=== PATIENT | male | born 1995 | race Two or more races ===

== ENCOUNTER 2021-01-27 22:29 | Emergency (ER) | payer MEDICAID ==
[~2021-01-27] VITALS: Ht 170.2 cm; Wt 87.5 kg
[2021-01-27 23:23] LABS: Basophils # (auto) 0.1 10 ^3/uL (0-0.2); Eosinophils # (auto) 0.1 10 ^3/uL (0-0.8); Eosinophils % (auto) 3.4 % (0.0-7.0); Hemoglobin 14.8 g/dL (13.5-17.5); Lymphocytes # (auto) 1.1 10 ^3/uL (0.4-5.4); Lymphocytes % (auto) 35.7 % (10.0-50.0); Mean Corpuscular Hemoglobin 30.8 pg (28.0-32.0); Mean Corpuscular Hgb Conc. 34.5 g/dL (32.0-36.0); Mean Corpuscular Volume 89.2 fL (80.0-100.0); Monocytes # (auto) 0.3 10 ^3/uL (0-1.3); Monocytes % (auto) 8.8 % (0.0-12.0); Neutrophils # (auto) 1.5 10 ^3/uL (1.6-8.6); Neutrophils % (auto) 49.1 % (37.0-80.0); Nucleated Red Blood Cells % 0.1 %; Platelet Count (auto) 142 10^3/uL (140-450); Red Blood Cells 4.82 10^6/uL (4.5-5.90); Red Cell Distribution Width 17.1 % (11.8-14.3)
[2021-01-27 23:44] LABS: INR 1.13 (0.9-1.15); Partial Thromboplastin Time 27.8 sec (23.0-31.2)
[2021-01-27 23:46] LABS: Salicylate < 1.7 mg/dL (2.8-20.0)
[2021-01-27 23:48] LABS: Albumin 4.4 g/dL (3.4-5.0); Calcium 8.2 mg/dL (8.5-10.1); Chloride 111 mmol/L (98-107); Glucose 118 mg/dL (74-106); Magnesium 2.1 mg/dL (1.6-2.6); Potassium 3.7 mmol/L (3.5-5.1); Sodium 144 mmol/L (136-145)
[2021-01-27 23:53] LABS: Alanine Aminotransferase 76 U/L (16-61); Alkaline Phosphatase 88 U/L (45-117); Aspartate Aminotransferase 139 U/L (15-37); Bilirubin, Total 0.8 mg/dL (0.2-1.0); GFR African American 144 mL/min; GFR Non-African American 119 mL/min; Total Protein 8.7 g/dL (6.4-8.2)
[2021-01-28 00:07] LABS: Acetaminophen < 2.0 ug/mL (10-30)
[2021-01-28 00:12] LABS: Anion Gap 10 (5-15); BUN/Creatinine Ratio 8.5; Blood Urea Nitrogen 7 mg/dL (7-18); Carbon Dioxide 23 mmol/L (21-32)
[2021-01-28 00:47] LABS: Amphetamine Screen, Urine NEGATIVE (NEGATIVE); Barbiturate Scree,Urine NEGATIVE (NEGATIVE); Benzodiazephine Screen, Urine POSITIVE (NEGATIVE); Cannabinoid Screen, Urine NEGATIVE (NEGATIVE); Cocaine Screen, Urine NEGATIVE (NEGATIVE); Opiate Scree,Urine NEGATIVE (NEGATIVE); Phencyclidine Screen, Urine NEGATIVE (NEGATIVE)
[2021-01-28] MEDS ORDERED: MULTIPLE VITAMIN TAB PO ONE (01:00)
[2021-01-28] MEDS ORDERED: FOLIC ACID 1 MG TAB PO ONE (01:00)
[2021-01-28] MEDS ORDERED: THIAMINE HCL 100 MG TAB PO ONE (01:00)
[2021-01-28] MEDS ORDERED: DONNATAL 5ml ORAL Elix (BELLADONNA ALK-PHENOBARB) PO ONE (07:45)
[2021-01-28] MEDS ORDERED: FAMOTIDINE 20 MG TAB PO ONE (07:45)
[2021-01-28] MEDS ORDERED: ALUM & MAG HYDROX-SIMETH LIQ(MAALOX) 30 ML PO ONE (07:45)
[2021-01-28] MEDS ORDERED: SODIUM CHLORIDE 0.9% 1,000 ML IVB ONE (07:45)
[2021-01-28] MEDS ORDERED: FOLIC ACID 1 MG, MULTIPLE VITAMIN 10 ML, MAGNESIUM SULF SDV 50% 8 MEQ, THIAMINE INJ 100... INJ SCH ×5 (12:00)
[2021-01-28 13:00] VITALS: BP 103/64
== END 2021-01-28 13:35 | disposition home or self-care (01) ==
LOC: ER 22:29 → EDBD 22:29 → ER 01-28 13:35
DX: R07.89 Other chest pain (principal); F10.129 Alcohol abuse with intoxication, unspecified; Y90.8 Blood alcohol level of 240 mg/100 ml or more
CPT/HCPCS: 36415; 71045; 80053; 80307; 80320; 80329; 83735; 83880; 84443; 84484; 85025; 85610; 85730; 93005; 96361; 96365; 96366; 99285; J3411; J3475; J7030

== ENCOUNTER 2021-01-30 01:46 | Emergency (ER) | payer MEDICAID ==
[~2021-01-30] VITALS: Ht 172.7 cm; Wt 83.9 kg
[2021-01-30 03:41] LABS: Basophils # (auto) 0 10 ^3/uL (0-0.2); Eosinophils # (auto) 0.2 10 ^3/uL (0-0.8); Hematocrit 41.6 % (41.0-53.0); Hemoglobin 13.9 g/dL (13.5-17.5); Lymphocytes # (auto) 0.9 10 ^3/uL (0.4-5.4); Lymphocytes % (auto) 38.6 % (10.0-50.0); Mean Corpuscular Hemoglobin 29.8 pg (28.0-32.0); Mean Corpuscular Hgb Conc. 33.5 g/dL (32.0-36.0); Mean Corpuscular Volume 88.8 fL (80.0-100.0); Monocytes # (auto) 0.1 10 ^3/uL (0-1.3); Monocytes % (auto) 6.4 % (0.0-12.0); Nucleated Red Blood Cells % 0.1 %; Platelet Count (auto) 108 10^3/uL (140-450); Red Blood Cells 4.68 10^6/uL (4.5-5.90); Red Cell Distribution Width 16.6 % (11.8-14.3); White Blood Cell 2.3 10^3/uL (4.4-10.8)
[2021-01-30] MEDS ORDERED: NIFEdipine 10 MG CAP PO ONE (03:45)
[2021-01-30 03:55] LABS: Albumin 3.9 g/dL (3.4-5.0); Anion Gap 8 (5-15); Blood Urea Nitrogen 5 mg/dL (7-18); Calcium 7.9 mg/dL (8.5-10.1); Carbon Dioxide 25 mmol/L (21-32); Chloride 110 mmol/L (98-107); Glucose 93 mg/dL (74-106); Magnesium 2.4 mg/dL (1.6-2.6); Potassium 3.6 mmol/L (3.5-5.1); Sodium 143 mmol/L (136-145)
[2021-01-30 03:56] LABS: INR 1.13 (0.9-1.15); Partial Thromboplastin Time 28.8 sec (23.0-31.2)
[2021-01-30 04:02] LABS: Alanine Aminotransferase 60 U/L (16-61); Alkaline Phosphatase 75 U/L (45-117); Aspartate Aminotransferase 111 U/L (15-37); BUN/Creatinine Ratio 6.9; Bilirubin, Total 0.7 mg/dL (0.2-1.0); GFR African American 167 mL/min; GFR Non-African American 138 mL/min; Total Protein 7.8 g/dL (6.4-8.2)
[2021-01-30] MEDS ORDERED: LORazepam 2MG/ML-1ML VIAL IV ONE (06:45)
[2021-01-30] MEDS ORDERED: SODIUM CHLORIDE 0.9% 1,000 ML IV ONE (06:45)
[2021-01-30 07:02] VITALS: BP 125/84
== END 2021-01-30 08:20 | disposition left against medical advice (07) ==
LOC: ER 01:46
DX: F10.129 Alcohol abuse with intoxication, unspecified (principal); I10 Essential (primary) hypertension; R07.89 Other chest pain; Y90.9 Presence of alcohol in blood, level not specified
CPT/HCPCS: 36415; 71045; 80053; 83735; 83880; 84484; 85025; 85610; 85730; 93005; 96361; 96374; 99285; J2060; 96360

== ENCOUNTER → 2023-11-14 | Outpatient (CLI) | payer MEDICAID ==
[2023-11-14 13:46] LABS: Hemoglobin 8.5 g/dL (13.5-17.5); Mean Corpuscular Hemoglobin 24.1 pg (28.0-32.0); Red Blood Cells 3.52 10^6/uL (4.5-5.90); White Blood Cell 2.9 10^3/uL (4.4-10.8)
[2023-11-14 13:48] LABS: Hematocrit 27.7 % (41.0-53.0); Mean Corpuscular Hgb Conc. 30.6 g/dL (32.0-36.0); Mean Corpuscular Volume 78.6 fL (80.0-100.0)
[2023-11-14 13:54] LABS: Red Cell Distribution Width 28.1 % (11.8-14.3)
[2023-11-14 13:56] LABS: Band Neutrophils % (manual) 0; Basophils % (manual) 0 (0.0-2.0); Blast Cells 0; Metamyelocytes % 0; Myelocytes % 0; Promyelocytes % 0; Reactive Lymphocytes 0
[2023-11-14 14:15] LABS: Eosinophils % (manual) 10 (0-7); Lymphocytes % (manual) 16 (10.0-50.0); Monocytes % (manual) 8 (0-12); Platelet Estimate Decreased
[2023-11-14 14:17] LABS: Alanine Aminotransferase 45 U/L (7-40); Alkaline Phosphatase 130 U/L (46-116); Anion Gap 4 (5-15); Aspartate Aminotransferase 70 U/L (13-40); BUN/Creatinine Ratio 15.8 (10.0-20.0); Blood Urea Nitrogen 9 mg/dL (9-23); Calcium 8.2 mg/dL (8.5-10.1); Carbon Dioxide 27 mmol/L (20-30); Chloride 107 mmol/L (98-107); Glucose 98 mg/dL (74-106); Potassium 3.6 mmol/L (3.5-5.1); Sodium 138 mmol/L (136-145)
[2023-11-14 14:18] LABS: Albumin 3.2 g/dL (3.2-4.8)
[2023-11-14 14:19] LABS: Bilirubin, Total 3.1 mg/dL (0.2-1.0)
[2023-11-14 14:20] LABS: Total Protein 6.1 g/dL (5.7-8.2)
== END | disposition home or self-care (01) ==
LOC: LAB 13:32
PROVIDERS: ATTEND Nurse Practitioner Gerontology
DX: K70.31 Alcoholic cirrhosis of liver with ascites (principal); F10.20 Alcohol dependence, uncomplicated
CPT/HCPCS: 36415; 80053; 82270; 85007; 85027

== ENCOUNTER 2023-12-12 21:40 | Inpatient (IN) | payer MEDICAID ==
[~2023-12-12] VITALS: Ht 170.2 cm; Wt 91.8 kg
[~2023-12-12 21:40] MED LIST: CALC500C52 PO; CHLO10CA PO; ESCI5TAB PO; FERR324T4 PO; FURO1TAB31 PO; FURO40TA4 PO; SPIR25TA PO
[2023-12-13] VITALS (9 sets, daily range): BP systolic 105–126; BP diastolic 72–81; PULSE 76–120; RESP 10–20; TEMP 97.9–98.7; O2SAT 96–100
[2023-12-13] MEDS: OCTREOTIDE ACETATE 500 MCG in SODIUM CHL 0.9% 99 ML IV SCH (01:50)
[2023-12-13 07:40] LABS: Basophils # (auto) 0 10 ^3/uL (0-0.2); Lymphocytes # (auto) 0.9 10 ^3/uL (0.4-5.4); Monocytes # (auto) 0.2 10 ^3/uL (0-1.3); Neutrophils # (auto) 2.1 10 ^3/uL (1.6-8.6)
[2023-12-13 07:42] LABS: Basophils % (auto) 0.6 % (0.0-2.0); Eosinophils # (auto) 0.5 10 ^3/uL (0-0.8); Eosinophils % (auto) 14.5 % (0.0-7.0); Hematocrit 20.3 % (41.0-53.0); Lymphocytes % (auto) 23.3 % (10.0-50.0); Mean Corpuscular Hemoglobin 21.7 pg (28.0-32.0); Mean Corpuscular Hgb Conc. 30.3 g/dL (32.0-36.0); Mean Corpuscular Volume 71.7 fL (80.0-100.0); Monocytes % (auto) 5.9 % (0.0-12.0); Neutrophils % (auto) 55.7 % (37.0-80.0); Red Blood Cells 2.83 10^6/uL (4.5-5.90); White Blood Cell 3.7 10^3/uL (4.4-10.8)
[2023-12-13] MEDS: PANTOPRAZOLE 40 MG/10 ML VIAL INJ IV ONE (07:49)
[2023-12-13] MEDS: ONDANSETRON HCL 4 MG/2 ML VIAL IV ONE (07:49)
[2023-12-13] MEDS: SODIUM CHLORIDE 0.9% 500 ML IVB ONE (07:49)
[2023-12-13 07:50] LABS: Red Cell Distribution Width 21.4 % (11.8-14.3)
[2023-12-13] MEDS: MORPHINE SULFATE 4 MG/ML SYR/VIAL IV ONE (07:50)
[2023-12-13 07:53] LABS: Alanine Aminotransferase 25 U/L (7-40); Albumin 2.8 g/dL (3.2-4.8); Alkaline Phosphatase 134 U/L (46-116); Anion Gap 5 (5-15); Aspartate Aminotransferase 78 U/L (13-40); BUN/Creatinine Ratio 14.9 (10.0-20.0); Bilirubin, Total 1.8 mg/dL (0.2-1.0); Blood Urea Nitrogen 7 mg/dL (9-23); Calcium 7.7 mg/dL (8.7-10.4); Carbon Dioxide 26 mmol/L (20-30); Chloride 109 mmol/L (98-107); Glucose 102 mg/dL (74-106); Lipase 40 U/L (12-53); Potassium 3.6 mmol/L (3.5-5.1); Sodium 140 mmol/L (136-145); Total Protein 6.3 g/dL (5.7-8.2)
[2023-12-13 07:54] LABS: Hemoglobin 6.2 g/dL (13.5-17.5)
[2023-12-13 08:12] LABS: Blood Alcohol 287.5 mg/dL (<10)
[2023-12-13] MEDS: OCTREOTIDE ACETATE 100 MCG in SODIUM CHL 0.9% 50 ML IV ONE (09:15)
[2023-12-13] MEDS ORDERED: DOCUSATE SOD 100 MG CAP PO PRN (09:15)
[2023-12-13 09:28] LABS: Anisocytosis Slight; Hypochromia Moderate; Platelet Estimate Decreased
[2023-12-13] MEDS ORDERED: LORazepam 2MG/ML-1ML VIAL IV PRN (09:30)
[2023-12-13 09:55] LABS: Hematocrit 20.2 % (41.0-53.0)
[2023-12-13 10:31] LABS: Hemoglobin 6.1 g/dL (13.5-17.5)
[2023-12-13 10:37] LABS: INR 1.22 (0.9-1.15); Prothrombin Time 12.6 sec (9.3-11.8)
[2023-12-13] MEDS: MORPHINE SULFATE INJ 2 MG/ml SYRG IV PRN (15:12)
[2023-12-13] MEDS: chlordiazePOXIDE HCL 25 MG CAP PO SCH (15:12)
[2023-12-13] MEDS: ONDANSETRON HCL 4 MG/2 ML VIAL IV PRN (15:13)
[2023-12-13] MEDS: SODIUM CHLORIDE 0.9% 1,000 ML IV SCH (15:14)
[2023-12-13] MEDS: PANTOPRAZOLE 40mg/50ML NS AE 50 ML IV SCH (15:14)
[2023-12-13] MEDS: cefTRIAXone 1GM/50ML D5W 50 ML IV ONE (15:57)
[2023-12-13] MEDS: FOLIC ACID 1 MG, MAGNESIUM SULF SDV 50% 8 MEQ, MULTIPLE VITAMIN 10 ML, THIAMINE INJ 100... INJ SCH (18:00)
[2023-12-14] VITALS (14 sets, daily range): BP systolic 104–122; BP diastolic 58–83; PULSE 72–88; RESP 9–15; TEMP 97.4–99.3; O2SAT 96–100
[2023-12-14 00:44] LABS: Red Blood Cells 2.73 10^6/uL (4.5-5.90); White Blood Cell 2.8 10^3/uL (4.4-10.8)
[2023-12-14 00:46] LABS: Hematocrit 20.3 % (41.0-53.0); Mean Corpuscular Hemoglobin 22.8 pg (28.0-32.0); Mean Corpuscular Hgb Conc. 30.6 g/dL (32.0-36.0); Mean Corpuscular Volume 74.5 fL (80.0-100.0)
[2023-12-14 00:57] LABS: Red Cell Distribution Width 21.4 % (11.8-14.3)
[2023-12-14 00:59] LABS: Hemoglobin 6.2 g/dL (13.5-17.5)
[2023-12-14 01:00] LABS: Basophils % (manual) 0 (0.0-2.0); Blast Cells 0; Metamyelocytes % 0; Myelocytes % 0; Promyelocytes % 0; Reactive Lymphocytes 0
[2023-12-14 01:31] LABS: INR 1.31 (0.9-1.15); Prothrombin Time 13.5 sec (9.3-11.8)
[2023-12-14] MEDS: PANTOPRAZOLE 40 MG/10 ML VIAL INJ IV ONE ×2 (01:51→05:10)
[2023-12-14] MEDS: OCTREOTIDE ACETATE 500 MCG/ML VL ONE (01:51)
[2023-12-14] MEDS: PANTOPRAZOLE 40mg/50ML NS AE 50 ML IV SCH (01:52)
[2023-12-14 01:58] LABS: Band Neutrophils % (manual) 1; Eosinophils % (manual) 14 (0-7); Monocytes % (manual) 5 (0-12)
[2023-12-14 01:59] LABS: Anisocytosis Slight; Hypochromia Moderate; Lymphocytes % (manual) 17 (10.0-50.0); Platelet Estimate Decreased; Stomatocytes Few
[2023-12-14] MEDS ORDERED: PANTOPRAZOLE 40 MG/10 ML VIAL INJ IV SCH (10:00)
[2023-12-14] MEDS: chlordiazePOXIDE HCL 25 MG CAP PO SCH (11:05)
[2023-12-14] MEDS: cefTRIAXone 1GM/50ML D5W 50 ML IV SCH (11:05)
[2023-12-14 18:19] LABS: Hemoglobin 8.3 g/dL (13.5-17.5); Mean Corpuscular Hemoglobin 23.8 pg (28.0-32.0); Mean Corpuscular Hgb Conc. 30.7 g/dL (32.0-36.0); Mean Corpuscular Volume 77.5 fL (80.0-100.0); Red Blood Cells 3.48 10^6/uL (4.5-5.90); Red Cell Distribution Width 19.8 % (11.8-14.3)
[2023-12-14 18:34] LABS: Alanine Aminotransferase 21 U/L (7-40); Albumin 2.6 g/dL (3.2-4.8); Alkaline Phosphatase 114 U/L (46-116); Anion Gap 6 (5-15); Aspartate Aminotransferase 65 U/L (13-40); BUN/Creatinine Ratio 13.2 (10.0-20.0); Blood Alcohol 37.3 mg/dL (<10); Blood Urea Nitrogen 7 mg/dL (9-23); Calcium 7.4 mg/dL (8.5-10.1); Carbon Dioxide 25 mmol/L (20-30); Chloride 109 mmol/L (98-107); Glucose 79 mg/dL (74-106); Sodium 140 mmol/L (136-145)
[2023-12-14 18:35] LABS: Total Protein 5.6 g/dL (5.7-8.2)
[2023-12-14 18:45] LABS: Band Neutrophils % (manual) 0; Basophils % (manual) 0 (0.0-2.0); Metamyelocytes % 0; Myelocytes % 0
[2023-12-14 18:46] LABS: Blast Cells 0; Promyelocytes % 0; Reactive Lymphocytes 0
[2023-12-14 20:57] LABS: Eosinophils % (manual) 15 (0-7); Lymphocytes % (manual) 16 (10.0-50.0)
[2023-12-14 20:58] LABS: Monocytes % (manual) 7 (0-12)
[2023-12-14 20:59] LABS: Hypochromia Moderate; Platelet Estimate Decreased
[2023-12-14 21:00] LABS: Anisocytosis Slight
[2023-12-14 21:49] LABS: Urine Bacteria None Seen /hpf (None Seen)
[2023-12-14 22:04] LABS: Urine Blood Negative /uL (Negative); Urine Clarity Clear (Clear); Urine Color Yellow (Yellow); Urine Mucus FEW (None Seen); Urine Protein, UAD Negative (Negative); Urine Specific Gravity 1.025 (1.001-1.035); Urine Urobilinogen 2 mg/dL (Negative); Urine WBC <1 /hpf (0 - 3)
[2023-12-14 22:10] LABS: Amphetamine Screen, Urine Neg (NEGATIVE); Barbiturate Scree,Urine Neg (NEGATIVE); Benzodiazephine Screen, Urine Pos (NEGATIVE); Cannabinoid Screen, Urine Neg (NEGATIVE); Cocaine Screen, Urine Neg (NEGATIVE); Opiate Scree,Urine Pos (NEGATIVE); Phencyclidine Screen, Urine Neg (NEGATIVE)
[2023-12-15] VITALS (8 sets, daily range): BP systolic 121–128; BP diastolic 76–87; PULSE 66–86; RESP 16–20; TEMP 97.7–99.2; O2SAT 91–100
[2023-12-15 06:50] LABS: Hemoglobin 7.5 g/dL (13.5-17.5)
[2023-12-15 06:52] LABS: Alanine Aminotransferase 18 U/L (7-40); Albumin 2.3 g/dL (3.2-4.8); Alkaline Phosphatase 102 U/L (46-116); Anion Gap 3 (5-15); Aspartate Aminotransferase 52 U/L (13-40); BUN/Creatinine Ratio 9.1 (10.0-20.0); Bilirubin, Total 2.8 mg/dL (0.2-1.0); Blood Urea Nitrogen 5 mg/dL (9-23); Calcium 7.4 mg/dL (8.7-10.4); Carbon Dioxide 26 mmol/L (20-30); Chloride 107 mmol/L (98-107); Glucose 132 mg/dL (74-106); Potassium 3.7 mmol/L (3.5-5.1); Sodium 136 mmol/L (136-145); Total Protein 5.2 g/dL (5.7-8.2)
[2023-12-15 06:53] LABS: Hematocrit 23.9 % (41.0-53.0); Mean Corpuscular Hemoglobin 24.2 pg (28.0-32.0); Mean Corpuscular Hgb Conc. 31.4 g/dL (32.0-36.0); Mean Corpuscular Volume 76.8 fL (80.0-100.0); Red Blood Cells 3.11 10^6/uL (4.5-5.90); White Blood Cell 2.7 10^3/uL (4.4-10.8)
[2023-12-15 06:56] LABS: Red Cell Distribution Width 20.1 % (11.8-14.3)
[2023-12-15 06:58] LABS: Basophils % (manual) 0 (0.0-2.0); Blast Cells 0; Metamyelocytes % 0; Myelocytes % 0; Promyelocytes % 0; Reactive Lymphocytes 0
[2023-12-15] MEDS: chlordiazePOXIDE HCL 25 MG CAP PO SCH (08:55)
[2023-12-15 09:07] LABS: Band Neutrophils % (manual) 2; Eosinophils % (manual) 20 (0-7); Lymphocytes % (manual) 17 (10.0-50.0); Monocytes % (manual) 9 (0-12)
[2023-12-15 09:08] LABS: Anisocytosis Slight; Hypochromia Slight; Platelet Estimate Markedly Decreased
[2023-12-15] MEDS: ALBUMIN 5% 50 ML IV ONE (12:17)
[2023-12-15] MEDS: BUMETANIDE 2.5mg/10ml (0.25 mg/ml) INJ IV SCH (12:18)
[2023-12-15 13:20] LABS: Hemoglobin 7.9 g/dL (13.5-17.5)
[2023-12-15 13:24] LABS: Hematocrit 25.7 % (41.0-53.0)
[2023-12-16] VITALS (7 sets, daily range): BP systolic 101–131; BP diastolic 64–90; PULSE 69–98; RESP 15–20; TEMP 97.6–99.7; O2SAT 92–97
[2023-12-16] MEDS: chlordiazePOXIDE HCL 25 MG CAP PO SCH (06:17)
[2023-12-16 07:12] LABS: Basophils # (auto) 0 10 ^3/uL (0-0.2); Basophils % (auto) 0.6 % (0.0-2.0); Lymphocytes # (auto) 0.5 10 ^3/uL (0.4-5.4); Monocytes # (auto) 0.2 10 ^3/uL (0-1.3)
[2023-12-16 07:14] LABS: Eosinophils # (auto) 0.8 10 ^3/uL (0-0.8); Hematocrit 25.7 % (41.0-53.0); Lymphocytes % (auto) 16.9 % (10.0-50.0); Mean Corpuscular Hemoglobin 23.8 pg (28.0-32.0); Mean Corpuscular Hgb Conc. 31.3 g/dL (32.0-36.0); Mean Corpuscular Volume 76.1 fL (80.0-100.0); Monocytes % (auto) 6.9 % (0.0-12.0); Neutrophils # (auto) 1.4 10 ^3/uL (1.6-8.6); Neutrophils % (auto) 48.9 % (37.0-80.0); Nucleated Red Blood Cells % 0.2 %; Red Blood Cells 3.38 10^6/uL (4.5-5.90); White Blood Cell 2.9 10^3/uL (4.4-10.8)
[2023-12-16 07:35] LABS: Alanine Aminotransferase 21 U/L (7-40); Albumin 2.5 g/dL (3.2-4.8); Alkaline Phosphatase 106 U/L (46-116); Anion Gap 4 (5-15); Aspartate Aminotransferase 67 U/L (13-40); Bilirubin, Total 2.6 mg/dL (0.2-1.0); Calcium 7.8 mg/dL (8.7-10.4); Carbon Dioxide 28 mmol/L (20-30); Chloride 105 mmol/L (98-107); Glucose 109 mg/dL (74-106); Potassium 3.2 mmol/L (3.5-5.1); Sodium 137 mmol/L (136-145); Total Protein 5.4 g/dL (5.7-8.2)
[2023-12-16 07:38] LABS: BUN/Creatinine Ratio 8.3 (10.0-20.0); Blood Urea Nitrogen < 5 mg/dL (9-23)
[2023-12-16 07:41] LABS: Eosinophils % (auto) 26.7 % (0.0-7.0); Red Cell Distribution Width 20.6 % (11.8-14.3)
[2023-12-16] MEDS ORDERED: FLUMAZENIL 0.1 MG/ML INJ 10ML MDV IV ONE (08:28)
[2023-12-16] MEDS ORDERED: NALOXONE HCL 0.4 MG/ML VIAL ONE (08:28)
[2023-12-16] MEDS ORDERED: PROPOFOL 10 MG/ML 20 ML IV ONE (09:24)
[2023-12-16] MEDS ORDERED: fentaNYL CITRATE 100 MCG/2 ML VL ONE (09:24)
[2023-12-16] MEDS: ONDANSETRON HCL 4 MG/2 ML VIAL IV ONE (11:00)
[2023-12-16] MEDS: SUCRALFATE 1 GM/10 ML ORAL SUSP PO SCH (11:56)
[2023-12-16] MEDS: POTASSIUM CHL 20MEQ/100ML 100 ML IV ONE (11:57)
[2023-12-16] MEDS: PANTOPRAZOLE 40 MG TAB PO SCH (21:47)
[2023-12-17 01:00] VITALS: BP 123/83; PULSE 81; RESP 16; TEMP 98.7; O2SAT 96
[2023-12-17 05:00] VITALS: BP 117/77; PULSE 77; RESP 16; TEMP 97.8; O2SAT 98
[2023-12-17 07:06] LABS: Hemoglobin 7.7 g/dL (13.5-17.5)
[2023-12-17 07:08] LABS: Hematocrit 24.5 % (41.0-53.0); Mean Corpuscular Hgb Conc. 31.6 g/dL (32.0-36.0); Mean Corpuscular Volume 76.2 fL (80.0-100.0); Red Blood Cells 3.21 10^6/uL (4.5-5.90); White Blood Cell 3.1 10^3/uL (4.4-10.8)
[2023-12-17 07:19] LABS: Red Cell Distribution Width 21.4 % (11.8-14.3)
[2023-12-17 07:20] LABS: Basophils % (manual) 0 (0.0-2.0); Blast Cells 0; Metamyelocytes % 0; Myelocytes % 0; Promyelocytes % 0; Reactive Lymphocytes 0
[2023-12-17 07:28] LABS: Alanine Aminotransferase 20 U/L (7-40); Alkaline Phosphatase 116 U/L (46-116); Anion Gap 6 (5-15); BUN/Creatinine Ratio 14.8 (10.0-20.0); Blood Urea Nitrogen 8 mg/dL (9-23); Calcium 7.1 mg/dL (8.5-10.1); Carbon Dioxide 26 mmol/L (20-30); Chloride 108 mmol/L (98-107); Glucose 96 mg/dL (74-106); Sodium 140 mmol/L (136-145)
[2023-12-17 07:29] LABS: Albumin 2.3 g/dL (3.2-4.8); Aspartate Aminotransferase 60 U/L (13-40); Bilirubin, Total 1.8 mg/dL (0.2-1.0); Total Protein 4.8 g/dL (5.7-8.2)
[2023-12-17 08:00] VITALS: PULSE 80; RESP 16; O2SAT 96
[2023-12-17 08:29] LABS: Band Neutrophils % (manual) 1; Eosinophils % (manual) 21 (0-7); Lymphocytes % (manual) 20 (10.0-50.0); Monocytes % (manual) 8 (0-12)
[2023-12-17 08:31] LABS: Anisocytosis Slight; Hypochromia Slight; Platelet Estimate Markedly Decreased; Polychromasia Slight; Tear Drop Cells FEW
[2023-12-17 09:00] VITALS: BP 106/76; PULSE 80; RESP 16; TEMP 97.4; O2SAT 96
[2023-12-17] MEDS: POTASSIUM CHL 20 Meq TABLET PO ONE (09:58)
[2023-12-17 13:00] VITALS: BP_SYST 115; BP_SYST 135; BP_DIAS 78; BP_DIAS 96; PULSE 106; PULSE 85; RESP 14; RESP 20; TEMP 96.8; TEMP 97.6; O2SAT 96; O2SAT 97
[2023-12-17 15:18] VITALS: BP 115/78; PULSE 83; RESP 16; TEMP 97.6; O2SAT 95
== END 2023-12-17 16:20 | disposition home or self-care (01) | DRG 280 ==
LOC: ER 21:40 → OVERFLOW 12-13 10:27 → EAST 12-14 23:56
PROVIDERS: ADMIT Internal Medicine; ATTEND Emergency Medicine
PROC: 30233N1 Transfusion of Nonautologous Red Blood Cells into Peripheral Vein, Percutaneous Approach (ICD-10-PCS; principal; 2023-12-13)
PROC: 30233R1 Transfusion of Nonautologous Platelets into Peripheral Vein, Percutaneous Approach (ICD-10-PCS; 2023-12-14)
PROC: 0DB98ZX Excision of Duodenum, Via Natural or Artificial Opening Endoscopic, Diagnostic (ICD-10-PCS; 2023-12-16)
PROC: 0DB78ZX Excision of Stomach, Pylorus, Via Natural or Artificial Opening Endoscopic, Diagnostic (ICD-10-PCS; 2023-12-16)
DX: K70.31 Alcoholic cirrhosis of liver with ascites (principal); J96.01 Acute respiratory failure with hypoxia; E43 Unspecified severe protein-calorie malnutrition; D61.818 Other pancytopenia; K25.4 Chronic or unspecified gastric ulcer with hemorrhage; K20.91 Esophagitis, unspecified with bleeding; K76.6 Portal hypertension; E83.51 Hypocalcemia; D62 Acute posthemorrhagic anemia; F10.10 Alcohol abuse, uncomplicated; D69.59 Other secondary thrombocytopenia; I10 Essential (primary) hypertension; K80.20 Calculus of gallbladder without cholecystitis without obstruction; Y90.8 Blood alcohol level of 240 mg/100 ml or more; Z79.899 Other long term (current) drug therapy; Z68.32 Body mass index [BMI] 32.0-32.9, adult
CPT/HCPCS: 36415; 74176; 76705; 80053; 80307; 80320; 81001; 82140; 83690; 85007; 85014; 85018; 85025; 85027; 85610; 86850; 86900; 86901; 86920; 87081; 99291; C9113; G0378; J2405; J2704; J3480

== ENCOUNTER 2024-02-08 20:58 | Emergency (ER) | payer MEDICAID ==
[~2024-02-08] VITALS: Ht 170.2 cm; Wt 72.6 kg
[~2024-02-08 20:58] MED LIST changes: -CHLO10CA PO; -ESCI5TAB PO
[2024-02-08 21:39] VITALS: BP 132/98; PULSE 121; RESP 18; O2SAT 96
== END 2024-02-08 22:00 | disposition left against medical advice (07) ==
LOC: ER 20:58
DX: R22.43 Localized swelling, mass and lump, lower limb, bilateral (principal); F10.90 Alcohol use, unspecified, uncomplicated; Z53.21 Procedure and treatment not carried out due to patient leaving prior to being seen by health care provider; Y90.0 Blood alcohol level of less than 20 mg/100 ml

== ENCOUNTER 2024-07-21 21:02 | Emergency (ER) | payer MEDICAID ==
[~2024-07-21] VITALS: Ht 170.2 cm; Wt 80.9 kg
--- NOTE | 2024-07-21 21:26 | ED.PDOC ---
History of Present Illness HPI Comments 29-year-old male who came to ER for alcohol withdrawals. Patient is a daily alcohol drinker and last drank alcohol about 4:00 p.m. Since then has been feeling generally weak, nauseated, body malaise, muscle and joint pains and cramping of lower extremities. Chief Complaint: Withdrawal Time Seen by MD: 21:26 Primary Care Provider: MIYA Spicer Notes: Nurses Notes Allergies: Coded Allergies: NO KNOWN ALLERGIES (Unverified , 01/27/21) Home Meds Active Scripts Chlordiazepoxide Hcl (Ni-1) (I (Librium) 10 Mg Cap, 10 MG PO Q6HR PRN for 10 Days, #30 CAP 0 Refills Prov:MARCELO GAFFNEY MD 07/21/24 Promethazine HCl (Promethegan) 25 Mg Sup, 25 MG [place] Q6HPRN PRN for 10 Days, #20 SUPP Prov:MARCELO GAFFNEY MD 07/21/24 Spironolactone (Aldactone) 25 Mg Tab, 1 TAB PO DAILY for 30 Days, #30 TAB 5 Refills Prov:JO ELDER MD 11/20/23 Furosemide (Lasix) 40 Mg Tab, 40 MG PO DAILY for 30 Days, #30 TAB Prov:JO ELDER MD 11/20/23 Reported Medications Furosemide (Furosemide) 40 Mg Tab, 40 MG PO DAILY for 30 Days 11/19/23 Ferrous Sulfate (FERROUS SULFATE) 324 Mg Tab, 324 MG PO DAILY, TAB 11/19/23 Calcium Carbonate (Calcium Carbonate) 500 Mg Chw, 500 MG PO DAILY, TAB.CHEW 11/19/23 Information Source: Patient Mode of Arrival: EMS Severity: Moderate Timing: Hours Duration: Since onset Past Medical History PAST MEDICAL HISTORY: HTN, Liver Past Medical History (Other): Chronic alcoholic Surgical History: Hernia Repair Family History Family History: Reviewed,noncontributory to illness, Family hx of Cancer Social History Smoker: Non-Smoker Alcohol: Heavy Drugs: Other Lives In: Home Constitutional: reports: malaise, weakness; denies: chills, diaphoresis, fatigue, fever, sweats, others EENTM: denies: blurred vision, double vision, ear bleeding, ear discharge, ear drainage, ear pain, ear ringing, eye pain, eye redness, hearing loss, mouth pain, mouth swelling, nasal discharge, nose bleeding, nose congestion, nose pain, photophobia, tearing, throat pain, throat swelling, voice changes, others Respiratory: denies: cough, hemoptysis, orthopnea, SOB at rest, shortness of breath, SOB with excertion, stridor, wheezing, others Cardiovascular: denies: chest pain, dizzy spells, diaphoresis, Dyspnea on exertion, edema, irregular heart beat, left arm pain, lightheadedness, palpitations, PND, syncope, others Gastrointestinal: reports: nausea; denies: abdomen distended, abdominal pain, blood streaked bowels, constipated, diarrhea, dysphagia, difficulty swallowing, hematemesis, melena, poor appetite, poor fluid intake, rectal bleeding, rectal pain, vomiting, others Genitourinary: denies: burning, dysuria, flank pain, frequency, hematuria, incontinence, penile discharge, penile sore, pain, testicle pain, testicle swelling, urgency, others Neurological: denies: dizziness, fainting, headache, left sided numbness, left sided weakness, numbness, paresthesia, pre-existing deficit, right sided numbness, right sided weakness, seizure, speech problems, tingling, tremors, weakness, others Musculoskeletal: reports: muscle pain; denies: back pain, gout, joint pain, joint swelling, muscle stiffness, neck pain, others Integumetry: denies: bruises, change in color, change in hair/nails, dryness, laceration, lesions, lumps, rash, wounds, others Allergic/Immunocompromised: denies: Difficulty Healing, Frequent Infections, Hives, Itching, others Hematologic/Lymphatic: denies: anemia, blood clots, easy bleeding, easy bruising, swollen glands, others Endocrine: denies: excessive hunger, excessive sweating, excessive thirst, excessive urination, flushing, intolerance to cold, intolerance to heat, unexplained weight gain, unexplained weight loss, others Psychiatric: reports: anxiety; denies: bipolar disorder, depression, hopeless, panic disorder, schizophrenia, sleepless, suicidal, others Physical Exam Exam Comments mildly disheveled, no tremor CIWA-Ar for Alcohol Withdrawal from [facility] on 07/22/2024 RESULT SUMMARY: 5 points Patients with scores ?8 typically do not require medication for withdrawal. INPUTS: Nausea/vomiting > 1 = Mild nausea and no vomiting Tremor > 0 = No tremor Paroxysmal sweats > 0 = No sweat visible Anxiety > 1 = Mildly anxious Agitation > 0 = Normal activity Tactile disturbances > 0 = None Auditory disturbances > 1 = Very mild harshness or ability to frighten Visual disturbances > 0 = Not present Headache/fullness in head > 2 = Mild Orientation/clouding of sensorium > 0 = Oriented, can do serial additions General Appearance: Mild Distress, Normal HEENT: Normal ENT Inspection, Pharynx Normal, TMs Normal Neck: Full Range of Motion, Non-Tender, Normal, Normal Inspection Respiratory: Chest Non-Tender, Lungs Clear, No Accessory Muscle Use, No Respiratory Distress, Normal Breath Sounds Cardiovascular: No Edema, No JVD, No Murmur, No Gallop, Normal Peripheral Pulses, Regular Rate/Rhythm Breast Exam: Deferred Gastrointestinal: No Organomegaly, Non Tender, No Pulsatile Mass, Normal Bowel Sounds, Soft Genitalia: Deferred Pelvic: Deferred Rectal: Deferred Extremities: No calf tenderness, Normal capillary refill, Normal inspection, Normal range of motion, Non-tender, No pedal edema Musculoskeletal : Apperance: Normal Neurologic: Alert, child care specialist II-XII nml as Tested, No Motor Deficits, Normal Affect, Normal Mood, No Sensory Deficits Cerebellar Function: Normal Reflexes: Normal Skin: Dry, Normal Color, Warm Lymphatic: No Adenopathy Was a procedure done? Was a procedure done?: No Differential Dx Considerations may include: Alcohol intoxication, alcohol withdrawals, anxiety X-Ray, Labs, Meds, VS Vital Signs Date Time Temp Pulse Resp B/P (MAP) Pulse Ox O2 Delivery O2 Flow Rate FiO2 07/21/24 21:53 86 16 96 Room Air* 0 21 07/21/24 21:30 98.8 86 16 121/86 (98) 96 98.8 07/21/24 21:06 98.8 100 18 140/90 (107) 96 Lab Test 07/21/24 21:31 Range/Units White Blood Count 2.8 L 4.4-10.8 10^3/uL Red Blood Count 3.80 L 4.5-5.90 10^6/uL Hemoglobin 9.3 L 13.5-17.5 g/dL Hematocrit 30.2 L 41.0-53.0 % Mean Corpuscular Volume 79.5 L 80.0-100.0 fL Mean Corpuscular Hemoglobin 24.4 L 28.0-32.0 pg Mean Corpuscular Hemoglobin Concent 30.7 L 32.0-36.0 g/dL Red Cell Distribution Width 27.9 H 11.8-14.3 % Platelet Count 25 L 140-450 10^3/uL Mean Platelet Volume 8.0 6.9-10.8 fL Neutrophils (%) (Auto) 67.5 37.0-80.0 % Lymphocytes (%) (Auto) 18.1 10.0-50.0 % Monocytes (%) (Auto) 6.3 0.0-12.0 % Eosinophils (%) (Auto) 7.2 H 0.0-7.0 % Basophils (%) (Auto) 0.9 0.0-2.0 % Neutrophils # (Auto) 1.9 1.6-8.6 10 ^3/uL Lymphocytes # (Auto) 0.5 0.4-5.4 10 ^3/uL Monocytes # (Auto) 0.2 0-1.3 10 ^3/uL Eosinophils # (Auto) 0.2 0-0.8 10 ^3/uL Basophils # (Auto) 0 0-0.2 10 ^3/uL Nucleated Red Blood Cells 0.0 % Platelet Estimate Decreased Hypochromasia (manual) Slight Anisocytosis (manual) Moderate Microcytosis Slight Sodium Level 142 136-145 mmol/L Potassium Level 3.5 3.5-5.1 mmol/L Chloride Level 108 H 98-107 mmol/L Carbon Dioxide Level 27 20-31 mmol/L Anion Gap 7 5-15 Blood Urea Nitrogen < 5 L 9-23 mg/dL Creatinine 0.46 L 0.700-1.30 mg/dL Glomerular Filtration Rate Calc 143 >90 mL/min BUN/Creatinine Ratio 10.9 10.0-20.0 Serum Glucose 99 74-106 mg/dL Calcium Level 8.3 L 8.7-10.4 mg/dL Magnesium Level 1.8 1.6-2.6 mg/dL Total Bilirubin 4.7 H 0.2-1.0 mg/dL Aspartate Amino Transferase (AST) 156 H 13-40 U/L Alanine Aminotransferase (ALT) 52 H 7-40 U/L Alkaline Phosphatase 165 H 46-116 U/L Total Protein 6.8 5.7-8.2 g/dL Albumin 3.5 3.2-4.8 g/dL Lipase 52 12-53 U/L Current Medications Medications (Trade) Dose Ordered Sig/Gretchen Route Start Time Stop Time Status Last Admin Sodium Chloride 1,000 ml @ 1,000 mls/hr Q1H ONCE IVB 07/21/24 21:30 07/21/24 22:29 DC 07/21/24 21:42 Lorazepam (Ativan Inj) 2 mg ONCE ONCE IV 07/21/24 21:30 07/21/24 21:31 DC 07/21/24 21:42 Time of 1ST Reevaluation: 21:22 Reevaluation 1ST: Unchanged Time of 2ND Reevaluation: 22:15 Reevaluation 2ND: Improved Patient Education/Counseling: Diagnosis, Treatment Family Education/Counseling: No Family Present Departure 1 Departure Time of Disposition: 22:45 Impression: Primary Impression: Alcohol abuse Additional Impression: Alcohol withdrawal Disposition: 01 HOME / SELF CARE / HOMELESS Condition: Stable e-Prescriptions Chlordiazepoxide Hcl (Ni-1) (I (Librium) 10 Mg Cap 10 MG PO Q6HR PRN for 10 Days, #30 CAP 0 Refills Prov: MARCELO GAFFNEY MD 07/21/24 Promethazine HCl (Promethegan) 25 Mg Sup 25 MG [place] Q6HPRN PRN for 10 Days, #20 SUPP Prov: MARCELO GAFFNEY MD 07/21/24 Discharged With: Self Critical Care Note Critical Care Time?: No Stability Stability form required: No Heart Score Heart Score: Heart Score Response (Comments) Value History N/A 0 EKG N/A 0 Age N/A 0 Risk Factors N/A 0 Troponin N/A 0 Total 0 I personally scribed for MARCELO GAFFNEY MD ([email or web address]) on 07/21/24 at 21:26. Electronically submitted by Kal Santos ([email or web address]). MARCELO GAFFNEY MD Jul 21, 2024 21:26
[2024-07-21 21:30] VITALS: BP 121/86; TEMP 98.8
[2024-07-21] MEDS: SODIUM CHLORIDE 0.9% 1,000 ML IVB ONE (21:42)
[2024-07-21] MEDS: LORazepam 2MG/ML-1ML VIAL IV ONE (21:42)
[2024-07-21 21:43] LABS: Basophils # (auto) 0 10 ^3/uL (0-0.2); Eosinophils # (auto) 0.2 10 ^3/uL (0-0.8); Monocytes # (auto) 0.2 10 ^3/uL (0-1.3); Neutrophils # (auto) 1.9 10 ^3/uL (1.6-8.6); White Blood Cell 2.8 10^3/uL (4.4-10.8)
[2024-07-21 21:44] LABS: Basophils % (auto) 0.9 % (0.0-2.0); Eosinophils % (auto) 7.2 % (0.0-7.0); Hematocrit 30.2 % (41.0-53.0); Hemoglobin 9.3 g/dL (13.5-17.5); Lymphocytes # (auto) 0.5 10 ^3/uL (0.4-5.4); Lymphocytes % (auto) 18.1 % (10.0-50.0); Mean Corpuscular Hemoglobin 24.4 pg (28.0-32.0); Mean Corpuscular Hgb Conc. 30.7 g/dL (32.0-36.0); Mean Corpuscular Volume 79.5 fL (80.0-100.0); Monocytes % (auto) 6.3 % (0.0-12.0); Neutrophils % (auto) 67.5 % (37.0-80.0); Platelet Count (auto) 25 10^3/uL (140-450)
[2024-07-21 21:51] LABS: Red Cell Distribution Width 27.9 % (11.8-14.3)
[2024-07-21 21:53] VITALS: PULSE 86; RESP 16; O2SAT 96
[2024-07-21 21:56] LABS: Alanine Aminotransferase 52 U/L (7-40); Albumin 3.5 g/dL (3.2-4.8); Alkaline Phosphatase 165 U/L (46-116); Anion Gap 7 (5-15); Aspartate Aminotransferase 156 U/L (13-40); Calcium 8.3 mg/dL (8.7-10.4); Carbon Dioxide 27 mmol/L (20-31); Chloride 108 mmol/L (98-107); Glucose 99 mg/dL (74-106); Lipase 52 U/L (12-53); Magnesium 1.8 mg/dL (1.6-2.6); Potassium 3.5 mmol/L (3.5-5.1); Sodium 142 mmol/L (136-145)
[2024-07-21 21:57] LABS: Bilirubin, Total 4.7 mg/dL (0.2-1.0); Total Protein 6.8 g/dL (5.7-8.2)
[2024-07-21 21:58] LABS: BUN/Creatinine Ratio 10.9 (10.0-20.0); Blood Urea Nitrogen < 5 mg/dL (9-23)
[2024-07-21 22:16] LABS: Platelet Estimate Decreased
[2024-07-21 22:17] LABS: Anisocytosis Moderate
[2024-07-21 22:18] LABS: Hypochromia Slight
[2024-07-21] MEDS ORDERED: PRO25RS PR (23:02)
[2024-07-21] MEDS ORDERED: CHL10C PO (23:03)
== END 2024-07-21 23:49 | disposition home or self-care (01) ==
LOC: EDBD 21:02 → ER 21:02
DX: F10.139 Alcohol abuse with withdrawal, unspecified (principal); I10 Essential (primary) hypertension; F15.90 Other stimulant use, unspecified, uncomplicated; Z98.890 Other specified postprocedural states; Z79.899 Other long term (current) drug therapy; Y90.0 Blood alcohol level of less than 20 mg/100 ml
CPT/HCPCS: 36415; 80053; 83690; 83735; 85025; 96361; 96374; 99283; J2060; J7030

== ENCOUNTER 2024-09-22 00:07 | Inpatient (IN) | payer MEDICAID ==
[2024-09-22] VITALS (7 sets, daily range): BP systolic 102–126; BP diastolic 71–89; PULSE 72–124; RESP 16–20; TEMP 97.8–98.5; O2SAT 92–98
[~2024-09-22] VITALS: Ht 170.2 cm; Wt 82.0 kg
[~2024-09-22 00:07] MED LIST changes: +CHL10C PO; +PRO25RS PR
--- NOTE | 2024-09-22 00:31 | ED.PDOC ---
GI ASSESSMENT HPI Comments 29-year-old male came to emergency room for abdominal pain. Patient has history of alcoholic liver cirrhosis, paracentesis done 8 days ago. Patient for the past few days, has been having diffuse abdominal pain, abdominal distention, nausea, with productive cough and shortness of breath. Noted to be febrile at 102 F upon arrival. Admits that he is a daily alcohol drinker Chief Complaint: Abdominal Pain Time Seen by MD: 00:29 Primary Care Provider: MIYA Spicer Notes: Nurses Notes Allergies: Coded Allergies: NO KNOWN ALLERGIES (Unverified , 01/27/21) Home Meds Active Scripts Chlordiazepoxide Hcl (Ni-1) (I (Librium) 10 Mg Cap, 10 MG PO Q6HR PRN for 10 Days, #30 CAP 0 Refills Prov:MARCELO GAFNFEY MD 07/21/24 Promethazine HCl (Promethegan) 25 Mg Sup, 25 MG [place] Q6HPRN PRN for 10 Days, #20 SUPP Prov:MARCELO GAFFNEY MD 07/21/24 Spironolactone (Aldactone) 25 Mg Tab, 1 TAB PO DAILY for 30 Days, #30 TAB 5 Refills Prov:JO ELDER MD 11/20/23 Furosemide (Lasix) 40 Mg Tab, 40 MG PO DAILY for 30 Days, #30 TAB Prov:JO ELDER MD 11/20/23 Reported Medications Furosemide (Furosemide) 40 Mg Tab, 40 MG PO DAILY for 30 Days 11/19/23 Ferrous Sulfate (FERROUS SULFATE) 324 Mg Tab, 324 MG PO DAILY, TAB 11/19/23 Calcium Carbonate (Calcium Carbonate) 500 Mg Chw, 500 MG PO DAILY, TAB.CHEW 11/19/23 Information Source: Patient Mode of Arrival: Ambulatory Timing: Hours Duration: Since onset Prehospital treatment: None Quality: Aching Vomitus: None Stool: Normal Recent: Ingestion of ETOH Recent Hx of: Liver Disease Pain Location: Diffuse Modifying Factors: Nothing Associated sign and symptoms: Nausea, Abdominal Pain, Other (Abdominal distention) Past Medical History PAST MEDICAL HISTORY: HTN, Liver Past Medical History (Other): Alcoholic liver cirrhosis, ascites Surgical History: Hernia Repair Surgical History (Other): Abdominal paracenteses September 13, 2024 Family History Family History: Reviewed,noncontributory to illness, Family hx of Cancer Social History Smoker: Non-Smoker Alcohol: Heavy Drugs: Other Lives In: Home Constitutional: reports: fatigue, weakness; denies: chills, diaphoresis, fever, malaise, sweats, others EENTM: denies: blurred vision, double vision, ear bleeding, ear discharge, ear drainage, ear pain, ear ringing, eye pain, eye redness, hearing loss, mouth pain, mouth swelling, nasal discharge, nose bleeding, nose congestion, nose pain, photophobia, tearing, throat pain, throat swelling, voice changes, others Respiratory: reports: cough, shortness of breath, SOB with excertion; denies: hemoptysis, orthopnea, SOB at rest, stridor, wheezing, others Cardiovascular: denies: chest pain, dizzy spells, diaphoresis, Dyspnea on e xertion, edema, irregular heart beat, left arm pain, lightheadedness, palpitations, PND, syncope, others Gastrointestinal: reports: abdomen distended, abdominal pain, nausea; denies: blood streaked bowels, constipated, diarrhea, dysphagia, difficulty swallowing, hematemesis, melena, poor appetite, poor fluid intake, rectal bleeding, rectal pain, vomiting, others Genitourinary: denies: burning, dysuria, flank pain, frequency, hematuria, incontinence, penile discharge, penile sore, pain, testicle pain, testicle swelling, urgency, others Neurological: denies: dizziness, fainting, headache, left sided numbness, left sided weakness, numbness, paresthesia, pre-existing deficit, right sided numbness, right sided weakness, seizure, speech problems, tingling, tremors, weakness, others Musculoskeletal: denies: back pain, gout, joint pain, joint swelling, muscle pain, muscle stiffness, neck pain, others Integumetry: denies: bruises, change in color, change in hair/nails, dryness, laceration, lesions, lumps, rash, wounds, others Allergic/Immunocompromised: denies: Difficulty Healing, Frequent Infections, Hives, Itching, others Hematologic/Lymphatic: denies: anemia, blood clots, easy bleeding, easy bruising, swollen glands, others Endocrine: denies: excessive hunger, excessive sweating, excessive thirst, excessive urination, flushing, intolerance to cold, intolerance to heat, unexplained weight gain, unexplained weight loss, others Psychiatric: denies: anxiety, bipolar disorder, depression, hopeless, panic disorder, schizophrenia, sleepless, suicidal, others Physical Exam General Appearance: Normal, Other (Jaundiced) HEENT: Normal ENT Inspection, Pharynx Normal, TMs Normal Neck: Full Range of Motion, Non-Tender, Normal, Normal Inspection Respiratory: Chest Non-Tender, Lungs Clear, No Accessory Muscle Use, No Respiratory Distress, Normal Breath Sounds Cardiovascular: No Edema, No JVD, No Murmur, No Gallop, Normal Peripheral Pulses, Regular Rate/Rhythm Breast Exam: Deferred Gastrointestinal: Diffuse, Distended, Hernia (Umbilical), Normal Bowel Sounds, Soft Genitalia: Deferred Pelvic: Deferred Rectal: Deferred Extremities: No calf tenderness, Normal capillary refill, Normal inspection, Normal range of motion, Non-tender, No pedal edema Musculoskeletal : Apperance: Normal Neurologic: Alert, director council on aging II-XII nml as Tested, No Motor Deficits, Normal Affect, Normal Mood, No Sensory Deficits Cerebellar Function: Normal Reflexes: Normal Skin: Dry, Normal Color, Warm Lymphatic: No Adenopathy Was a procedure done? Was a procedure done?: No GI differential Dx Differential Diagnosis: Diverticular disease, Gastritis/PUD, Gastroenteritis, Hernia, Hepatitis, Pancreatitis, UTI, Urolithiasis, Anemia, Other (Alcoholic liver cirrhosis) X-Ray, Labs, Meds, VS Vital Signs Date Time Temp Pulse Resp B/P (MAP) Pulse Ox O2 Delivery O2 Flow Rate FiO2 09/22/24 03:17 124 18 95 Room Air* 0 21 09/22/24 03:08 99.4 124 18 104/63 (77) 95 99.4 09/22/24 01:39 124 16 104/63 09/22/24 01:09 149 20 122/81 09/22/24 01:01 100.8 149 20 122/81 (95) 98 100.8 09/22/24 01:01 149 20 98 Room Air 09/22/24 00:10 154 09/22/24 00:10 102.3 154 20 113/77 (89) 90 Lab Test 09/22/24 02:25 09/22/24 00:30 Range/Units Lactic Acid Level 2.2 *H 2.3 *H 0.4-2.0 mmol/L White Blood Count 5.5 4.4-10.8 10^3/uL Red Blood Count 4.30 L 4.5-5.90 10^6/uL Hemoglobin 10.2 L 13.5-17.5 g/dL Hematocrit 32.5 L 41.0-53.0 % Mean Corpuscular Volume 75.7 L 80.0-100.0 fL Mean Corpuscular Hemoglobin 23.8 L 28.0-32.0 pg Mean Corpuscular Hemoglobin Concent 31.4 L 32.0-36.0 g/dL Red Cell Distribution Width 27.0 H 11.8-14.3 % Platelet Count 71 L 140-450 10^3/uL Mean Platelet Volume 8.5 6.9-10.8 fL Neutrophils (%) (Auto) 83.0 H 37.0-80.0 % Lymphocytes (%) (Auto) 4.0 L 10.0-50.0 % Monocytes (%) (Auto) 12.1 H 0.0-12.0 % Eosinophils (%) (Auto) 0.3 0.0-7.0 % Basophils (%) (Auto) 0.6 0.0-2.0 % Neutrophils # (Auto) 4.6 1.6-8.6 10 ^3/uL Lymphocytes # (Auto) 0.2 L 0.4-5.4 10 ^3/uL Monocytes # (Auto) 0.7 0-1.3 10 ^3/uL Eosinophils # (Auto) 0 0-0.8 10 ^3/uL Basophils # (Auto) 0 0-0.2 10 ^3/uL Nucleated Red Blood Cells 0.1 % Platelet Estimate Decreased Hypochromasia (manual) Moderate Anisocytosis (manual) Moderate Microcytosis Slight Sodium Level 135 L 136-145 mmol/L Potassium Level 3.6 3.5-5.1 mmol/L Chloride Level 103 98-107 mmol/L Carbon Dioxide Level 23 20-31 mmol/L Anion Gap 9 5-15 Blood Urea Nitrogen < 5 L 9-23 mg/dL Creatinine 0.73 0.700-1.30 mg/dL Glomerular Filtration Rate Calc 125 >90 mL/min BUN/Creatinine Ratio 6.8 L 10.0-20.0 Serum Glucose 129 H 74-106 mg/dL Calcium Level 7.6 L 8.7-10.4 mg/dL Total Bilirubin 6.6 H 0.2-1.0 mg/dL Aspartate Amino Transferase (AST) 296 H 13-40 U/L Alanine Aminotransferase (ALT) 39 7-40 U/L Alkaline Phosphatase 269 H 46-116 U/L Ammonia 22 11-32 umol/L Total Protein 7.3 5.7-8.2 g/dL Albumin 3.4 3.2-4.8 g/dL Lipase 59 H 12-53 U/L Plasma/Serum Blood Alcohol 202.1 H <10 mg/dL Current Medications Medications (Trade) Dose Ordered Sig/Gretchen Route Start Time Stop Time Status Last Admin Morphine Sulfate 4 mg ONCE ONCE IV 09/22/24 00:30 09/22/24 00:31 DC 09/22/24 01:09 Ondansetron HCl (Zofran) 4 mg ONCE ONCE IV 09/22/24 00:30 09/22/24 00:31 DC 09/22/24 01:08 Cefepime HCl 50 ml @ 12.5 mls/hr ONCE ONCE IV 09/22/24 00:30 09/22/24 04:29 09/22/24 03:13 Vancomycin HCl 200 ml @ 200 mls/hr ONCE ONCE IV 09/22/24 00:30 09/22/24 01:29 DC 09/22/24 01:08 Time of 1ST Reevaluation: 00:23 Reevaluation 1ST: Unchanged Patient Education/Counseling: Diagnosis, Treatment Family Education/Counseling: No Family Present Departure 1 Departure Time of Disposition: 04:25 (Patient presented with abdominal pain that was concerning for possible appendicits, gastritis, cholecystitis, colitis, gastroenteritis, sbo, or orther possible surgical emergency. Data: 1. I ordered and reviewed the result of at least 3 labs including a CBC, BMP, and Urinalysis. 2. I independently interpreted the following tests: CT Abdoment and Pelvis is concerning for diffuse ascites .Risk:This patient has a high risk of morbidity due to further diagnostic testing or treatment and may suffer from an acute abdominal process disorder. Workup reveals concern for diffuse ascites and concern for SBP and patient should be admitted for further workup. and possible expert consultation. ) Impression: Primary Impression: Acute abdominal pain Additional Impressions: Ascites Qualified Codes: K70.31 - Alcoholic cirrhosis of liver with ascites Alcohol intoxication Qualified Codes: F10.920 - Alcohol use, unspecified with intoxication, uncomplicated Liver cirrhosis Qualified Codes: K70.31 - Alcoholic cirrhosis of liver with ascites Disposition: ADMITTED INPATIENT Admit to: Med Surg Condition: Serious Critical Care Note Critical Care Time?: Yes (35 min-critical care time only) Critical care comment: Abdominal pain, abdominal distention Authorized and Performed by: Ginny Lebron MD Total critical care time: Approximately 38 minutes Due to a high probability of clinically significant, life threatening deterioration, the patient required my highest level of preparedness to intervene emergently and I personally spent this critical care time directly and personally managing the patient. This critical care time included obtaining a history; examining the patient; pulse oximetry; ordering and review of studies; arranging urgent treatment with development of a management plan; evaluation of patient's response to treatment; frequent reassessment; and, discussions with other providers. This critical care time was performed to assess and manage the high probability of imminent, life-threatening deterioration that could result in multi-organ failure. It was exclusive of separately billable procedures and treating other patients and teaching time. Please see my other sections and the rest of the note for further information on patient assessment and treatment. Stability Stability form required: No Heart Score Heart Score: Heart Score Response (Comments) Value History N/A 0 EKG N/A 0 Age N/A 0 Risk Factors N/A 0 Troponin N/A 0 Total 0 I personally scribed for GINNY LEBRON MD ([email or web address]) on 09/22/24 at 00:31. Electronically submitted by Kal Santos ([email or web address]). GINNY LEBRON MD Sep 22, 2024 00:31
[2024-09-22 00:48] LABS: Eosinophils # (auto) 0 10 ^3/uL (0-0.8); Lymphocytes # (auto) 0.2 10 ^3/uL (0.4-5.4); Nucleated Red Blood Cells % 0.1 %
[2024-09-22 00:50] LABS: Basophils # (auto) 0 10 ^3/uL (0-0.2); Basophils % (auto) 0.6 % (0.0-2.0); Eosinophils % (auto) 0.3 % (0.0-7.0); Hematocrit 32.5 % (41.0-53.0); Hemoglobin 10.2 g/dL (13.5-17.5); Mean Corpuscular Hemoglobin 23.8 pg (28.0-32.0); Mean Corpuscular Hgb Conc. 31.4 g/dL (32.0-36.0); Mean Corpuscular Volume 75.7 fL (80.0-100.0); Monocytes # (auto) 0.7 10 ^3/uL (0-1.3); Monocytes % (auto) 12.1 % (0.0-12.0); Neutrophils # (auto) 4.6 10 ^3/uL (1.6-8.6); Platelet Count (auto) 71 10^3/uL (140-450); White Blood Cell 5.5 10^3/uL (4.4-10.8)
[2024-09-22 01:08] LABS: Lactic Acid w/Reflex 2.3 mmol/L (0.4-2.0)
[2024-09-22] MEDS: VANCOMYCIN 1GM/250ML KIT 200 ML IV ONE (01:08)
[2024-09-22] MEDS: ONDANSETRON HCL 4 MG/2 ML VIAL IV ONE (01:08)
[2024-09-22] MEDS: MORPHINE SULFATE 4 MG/ML SYR/VIAL IV ONE (01:09)
[2024-09-22 01:18] LABS: Anisocytosis Moderate; Hypochromia Moderate; Platelet Estimate Decreased
[2024-09-22 01:44] LABS: Alanine Aminotransferase 39 U/L (7-40); Albumin 3.4 g/dL (3.2-4.8); Anion Gap 9 (5-15); Blood Alcohol 202.1 mg/dL (<10); Carbon Dioxide 23 mmol/L (20-31); Chloride 103 mmol/L (98-107); Potassium 3.6 mmol/L (3.5-5.1)
[2024-09-22 01:45] LABS: Alkaline Phosphatase 269 U/L (46-116); Aspartate Aminotransferase 296 U/L (13-40); BUN/Creatinine Ratio 6.8 (10.0-20.0); Bilirubin, Total 6.6 mg/dL (0.2-1.0); Blood Urea Nitrogen < 5 mg/dL (9-23); Calcium 7.6 mg/dL (8.7-10.4); Glucose 129 mg/dL (74-106); Sodium 135 mmol/L (136-145); Total Protein 7.3 g/dL (5.7-8.2)
[2024-09-22 01:56] LABS: Lipase 59 U/L (12-53)
[2024-09-22] MEDS: IOHEXOL 300 MG/ML 100ML BOTTLE IJ ONE (02:36)
[2024-09-22] MEDS: CEFEPIME 2GM/50ML NS 50 ML IV ONE (03:13)
--- NOTE | 2024-09-22 05:01 | DVH ---
Exam: CT CT AB PEL WITH IV CON ONLY History: abdominal pain, ascites Comparison Study: Ultrasound 12/15/2023 Contrast: 100 cc of Omnipaque 300 TECHNIQUE: A digital director global market research image was obtained. During the uneventful, intravenous administration of c ontrast material, multislice data acquisition was obtained through the abdomen and pelvis. The data s et was subsequently reconstructed into axial images. Images were reviewed on a work station using a c ombination of axial and multiplanar using a variety of window levels and settings. All CT scans at this medical facility are performed using dose modulation techniques as appropriate t o a performed exam including the following: Automated exposure control was utilized; adjustment of th e MA and/or KV according to patient size; and use of iterative reconstruction technique. Radiation Dose Information: CT Dose: CTDI volume is 11.4 mGy. Dose-length product is 749.6 mGy*cm FINDINGS: Imaged portions of the lung bases demonstrate subsegmental atelectasis. The liver is shrunken and nodular in contour. The spleen is enlarged measuring up to 18 cm. There is cholelithiasis. The pancreas and adrenal glands appear unremarkable. The kidneys enhance symmetrica lly. There is no hydronephrosis. Multiple paraesophageal and perisplenic varicosities are present. There is a small hiatal hernia. Moderate ascites most pronounced in the pelvis and perihepatic space. No evidence of bowel obstruction or focal bowel wall thickening. Small fluid containing umbilical her cheryl. No suspicious osseous lesion. IMPRESSION: 1. Constellation of findings consistent with hepatic cirrhosis, portal hypertension and varices. 2. Moderate to large amount of ascites most pronounced in the right abdomen and pelvis. 3. Cholelithiasis 4. Small hiatal hernia
[2024-09-22] MEDS: chlordiazePOXIDE HCL 25 MG CAP PO ONE ×2 (05:34→15:19)
[2024-09-22] MEDS ORDERED: ACETAMINOPHEN 325 MG TAB PO PRN (07:45)
[2024-09-22] MEDS ORDERED: ONDANSETRON HCL 4 MG/2 ML VIAL IV PRN (07:45)
--- NOTE | 2024-09-22 08:14 | DVHHP2 ---
History of Present Illness Reason for Visit: Abdominal pain History of Present Illness Yuriy Nunez is a 29-year-old male with past medical history of hypertension, ETOH liver cirrhosis, and hernia repair who presents to the ED for abdominal pain, nausea, abdominal distention, productive yellow cough, and shortness of breath x3 days. Patient reports that on September 13, 2024 he had a paracentesis with about 6 L out. Patient reports that he drinks about 36 packs of beers per day, quit smoking recently, and denies illicit drug use. Patient reports that he drinks many beers per day out of habit. Patient denies any chest pain, vomiting, diarrhea, recent sick contacts or recent ingestion of spoiled food, lightheadedness, weakness, dizziness, headaches, hallucinations, auditory disturbances, or tremors. Cardiovascular: HTN Hepatobiliary: Cirrhosis Past Surgical History: Hernia Repair, Other (EGD) Family History: Hypertension, Other (Dad with hypertension and prostatectomy) Smoke: Quit ALCOHOL: heavy Drugs: None Lives: with Family Domestic Violence: Neg Review of Systems Constitutional: No: Fever, Chills, Sweats, Weakness, Malaise, Other Eyes: No: Pain, Vision change, Conjunctivae inflammation, Eyelid inflammation, Other, Redness ENT: No: Ear pain, Ear discharge, Nose pain, Nose discharge, Nose congestion, Mouth pain, Mouth swelling, Throat pain, Throat swelling, Other Respiratory: Cough, Shortness of breath; No: Dry, SOB with excertion, Wheezing, Hemoptysis, Pleuritic Pain, Sputum, Wheezing, Other Cardiovascular: No: Chest Pain, Palpitations, Orthopnea, Paroxysmal Noc. Dyspnea, Edema, Lt Headedness, Other Gastrointestinal: Nausea, Abdominal Pain, Other (Abdominal distention); No: Vomiting, Diarrhea, Constipation, Melena, Hematochezia Genitourinary: No Dysuria, No Frequency, No Incontinence, No Hematuria, No Retention, No Other Musculoskeletal: No: other, neck pain, shoulder pain, arm pain, back pain, hand pain, leg pain, foot pain Skin: No: Rash, Lesions, Jaundice, Bruising, Other Neurological: No: Weakness, Numbness, Incoordination, Change in speech, Confusion, Seizures, Other Allergies: Coded Allergies: NO KNOWN ALLERGIES (Unverified , 01/27/21) Medications Current Medications Medications Dose Ordered Sig/Gretchen Route Start Time Stop Time Status Last Admin Dose Admin Acetaminophen/ Hydrocodone Bitart 1 tab Q4HP PRN PO 09/22/24 07:45 Ondansetron HCl 4 mg Q4HP PRN IV 09/22/24 07:45 Acetaminophen 650 mg Q6HP PRN PO 09/22/24 07:45 Exam Vital Signs Vital Signs Date Time Temp Pulse Resp B/P (MAP) Pulse Ox O2 Delivery O2 Flow Rate FiO2 09/22/24 03:17 124 18 95 Room Air* 0 21 09/22/24 03:08 99.4 104/63 (77) 99.4 General Appearance: Alert, Oriented X3, Cooperative, No acute distress HEENT: Atraumatic, PERRLA, EOMI, Mucous membr. moist/pink Respiratory: Normal air movement Cardiovascular: Normal S1, Normal S2, No murmurs Abdominal: Other (Distended) Extremities: No clubbing, No cyanosis, No edema, Normal pulses, No tenderness/swelling Skin: No rashes, No breakdown, No significant lesion Neuro: Normal gait, Normal speech, Strength at 5/5 X4 ext, Normal tone, Sensation intact Psych/Mental Status: Mental status NL, Mood NL Labs/Xrays Labs Test 09/22/24 02:25 09/22/24 00:30 Range/Units Lactic Acid Level 2.2 *H 0.4-2.0 mmol/L White Blood Count 5.5 4.4-10.8 10^3/uL Red Blood Count 4.30 L 4.5-5.90 10^6/uL Hemoglobin 10.2 L 13.5-17.5 g/dL Hematocrit 32.5 L 41.0-53.0 % Mean Corpuscular Volume 75.7 L 80.0-100.0 fL Mean Corpuscular Hemoglobin 23.8 L 28.0-32.0 pg Mean Corpuscular Hemoglobin Concent 31.4 L 32.0-36.0 g/dL Red Cell Distribution Width 27.0 H 11.8-14.3 % Platelet Count 71 L 140-450 10^3/uL Mean Platelet Volume 8.5 6.9-10.8 fL Neutrophils (%) (Auto) 83.0 H 37.0-80.0 % Lymphocytes (%) (Auto) 4.0 L 10.0-50.0 % Monocytes (%) (Auto) 12.1 H 0.0-12.0 % Eosinophils (%) (Auto) 0.3 0.0-7.0 % Basophils (%) (Auto) 0.6 0.0-2.0 % Neutrophils # (Auto) 4.6 1.6-8.6 10 ^3/uL Lymphocytes # (Auto) 0.2 L 0.4-5.4 10 ^3/uL Monocytes # (Auto) 0.7 0-1.3 10 ^3/uL Eosinophils # (Auto) 0 0-0.8 10 ^3/uL Basophils # (Auto) 0 0-0.2 10 ^3/uL Nucleated Red Blood Cells 0.1 % Platelet Estimate Decreased Hypochromasia (manual) Moderate Anisocytosis (manual) Moderate Microcytosis Slight Sodium Level 135 L 136-145 mmol/L Potassium Level 3.6 3.5-5.1 mmol/L Chloride Level 103 98-107 mmol/L Carbon Dioxide Level 23 20-31 mmol/L Anion Gap 9 5-15 Blood Urea Nitrogen < 5 L 9-23 mg/dL Creatinine 0.73 0.700-1.30 mg/dL Glomerular Filtration Rate Calc 125 >90 mL/min BUN/Creatinine Ratio 6.8 L 10.0-20.0 Serum Glucose 129 H 74-106 mg/dL Calcium Level 7.6 L 8.7-10.4 mg/dL Total Bilirubin 6.6 H 0.2-1.0 mg/dL Aspartate Amino Transferase (AST) 296 H 13-40 U/L Alanine Aminotransferase (ALT) 39 7-40 U/L Alkaline Phosphatase 269 H 46-116 U/L Ammonia 22 11-32 umol/L Total Protein 7.3 5.7-8.2 g/dL Albumin 3.4 3.2-4.8 g/dL Lipase 59 H 12-53 U/L Plasma/Serum Blood Alcohol 202.1 H <10 mg/dL CHEST RADIOGRAPH Indication: cough/sob Technique: Single frontal view of the chest was obtained COMPARISON: XY CHEST PORTABLE on DOS: 11/20/23, CHEST PORTABLE on DOS: 01/30/21, CHEST XRAY 1 VIEW on DOS: 01/27/21 FINDINGS: Lines and Tubes: None Lungs: Clear Pleura: No effusion. No pneumothorax. Cardiomediastinal contours: Unremarkable Bones: Unremarkable IMPRESSION: 1. No acute disease. Exam: CT CT AB PEL WITH IV CON ONLY History: abdominal pain, ascites Comparison Study: Ultrasound 12/15/2023 Contrast: 100 cc of Omnipaque 300 TECHNIQUE: A digital demolition expert image was obtained. During the uneventful, intravenous administration of contrast material, multislice data acquisition was obtained through the abdomen and pelvis. The data set was subsequently reconstructed into axial images. Images were reviewed on a work station using a combination of axial and multiplanar using a variety of window levels and settings. All CT scans at this medical facility are performed using dose modulation techniques as appropriate to a performed exam including the following: Automated exposure control was utilized; adjustment of the MA and/or KV according to patient size; and use of iterative reconstruction technique. Radiation Dose Information: CT Dose: CTDI volume is 11.4 mGy. Dose-length product is 749.6 mGy*cm FINDINGS: Imaged portions of the lung bases demonstrate subsegmental atelectasis. The liver is shrunken and nodular in contour. The spleen is enlarged measuring up to 18 cm. There is cholelithiasis. The pancreas and adrenal glands appear unremarkable. The kidneys enhance symmetrically. There is no hydronephrosis. Multiple paraesophageal and perisplenic varicosities are present. There is a small hiatal hernia. Moderate ascites most pronounced in the pelvis and perihepatic space. No evidence of bowel obstruction or focal bowel wall thickening. Small fluid containing umbilical hernia. No suspicious osseous lesion. IMPRESSION: 1. Constellation of findings consistent with hepatic cirrhosis, portal hypertension and varices. 2. Moderate to large amount of ascites most pronounced in the right abdomen and pelvis. 3. Cholelithiasis 4. Small hiatal hernia Assessment/Plan Assessment/Plan Assessment/Plan: Alcoholic Liver cirrhosis with ascites Thrombocytopenia Lactic acidosis rule out sepsis Anemia Elevated T bili Elevated lipase Labs UA UDS Librium IV antibiotics-vancomycin + zosyn Cefepime given in ED Antiemetics Pain management Blood culture RBC morph Ammonia levels CT abdomen and pelvis Blood alcohol level Lipase PT/INR A.m. labs CIWA Thiamine Folic acid Multivitamins Ativan IR consult -possible paracentesis Diurese-Lasix and spironolactone A.m. labs MELD score 19 points with 6% estimated 3 month mortality Small hiatal hernia Reducible Follow up outpatient with PCP Chronic hypertension Continue home medications ETOH abuse Counseled patient on cessation of EtOH FEN/PPX diet Hep-Lock DVT ppx - hold ac d/t thrombocytopenia PUD PPX -Protonix Admit patient to tele Discussed plan of care with patient and nurse Home meds reconciled Plan discussed with: Patient My Orders Orders - ARMAND BENJAMIN Procedure Category Date Status Time Admit ADMIT 09/22/24 Transmitted 07:42 Allergies ARACELY 09/22/24 In Process 07:42 Code Status CODE 09/22/24 Transmitted 07:42 2 Gm Sodium Diet DIET 09/22/24 Transmitted Breakfast Hydrocodone-Acet PHA 09/22/24 In Process 5/325mg Tab ([place] 07:45 Ondansetron Hcl PHA 09/22/24 In Process (Zofran) 07:45 Complete Blood Count LAB 09/23/24 Verified 04:00 Comprehensive LAB 09/23/24 Verified Metabolic Panel 04:00 Acetaminophen Tablet PHA 09/22/24 In Process (Tylenol Tablet) 07:45 * Radiologist Consult CONS 09/22/24 Transmitted 07:42 Date of Service: Sep 22, 2024 Billing Provider: ARMAND BENJAMIN Common Visit Codes: [id number] INP/OBS CARE (HIGH) ARMAND BENJAMIN Sep 22, 2024 08:14
[2024-09-22] MEDS ORDERED: VANCOMYCIN PER PHARMACY 0 MG IV SCH (09:00)
[2024-09-22] MEDS: FOLIC ACID 1 MG TAB PO ONE (09:20)
[2024-09-22] MEDS: THIAMINE HCL 100 MG TAB PO ONE (09:20)
[2024-09-22] MEDS: LORazepam 0.5 MG TAB PO SCH (10:34)
[2024-09-22] MEDS: HYDROcodone-ACET 5/325MG TAB PO PRN (10:35)
[2024-09-22] MEDS: LORazepam 0.5 MG TAB PO ONE (10:39)
[2024-09-22] MEDS: MULTIPLE VITAMIN TAB PO SCH (11:07)
[2024-09-22] MEDS: PIPERACILLIN-TAZOB 3.375GM 100 ML IV ONE (11:07)
--- NOTE | 2024-09-22 11:20 | DVH ---
CHEST RADIOGRAPH Indication: cough/sob Technique: Single frontal view of the chest was obtained COMPARISON: XY CHEST PORTABLE on DOS: 11/20/23, CHEST PORTABLE on DOS: 01/30/21, CHEST XRAY 1 VIEW on DO S: 01/27/21 FINDINGS: Lines and Tubes: None Lungs: Clear Pleura: No effusion. No pneumothorax. Cardiomediastinal contours: Unremarkable Bones: Unremarkable IMPRESSION: 1. No acute disease.
[2024-09-22] MEDS: SPIRONOLACTONE 25 MG TAB PO ONE (11:38)
[2024-09-22] MEDS: FUROSEMIDE 40 MG/4 ML VIAL IV ONE (11:40)
[2024-09-22 12:09] LABS: INR 1.52 (0.9-1.15); Prothrombin Time 15.5 sec (9.3-11.8)
--- NOTE | 2024-09-22 13:36 | DVHPN2 ---
Subjective A little bit better Reviewed: Care Plan, H&P, Labs, Medications, Previous Orders, Radiology Changes from previous H/P or p: No Changes Objective Vitals Vital Signs Date Time Temp Pulse Resp B/P (MAP) Pulse Ox O2 Delivery O2 Flow Rate FiO2 09/22/24 12:31 97.8 113 16 121/87 (98) 92 97.8 09/22/24 08:00 Room Air* 0 21 Intake/Output Intake and Output 09/22/24 07:00 Intake Total 250 ml Balance 250 ml Intake IV Total 250 ml General Appearance: Alert, Oriented X3, Cooperative HEENT: Atraumatic Lungs: Other (Few crackles bilateral) Cardiovascular: Regular rate Abdomen: Other (Prominent abdomen and umbilical hernia/ascites) Extremities: Other (Edema bilateral lower extremities) Medications Current Medications Medications Dose Ordered Sig/Gretchen Route Start Time Stop Time Status Last Admin Dose Admin Acetaminophen/ Hydrocodone Bitart 1 tab Q4HP PRN PO 09/22/24 07:45 09/22/24 10:35 1 TAB Ondansetron HCl 4 mg Q4HP PRN IV 09/22/24 07:45 Multivitamins 1 tab DAILY PO 09/22/24 10:00 09/22/24 11:07 1 TAB Lorazepam 2 mg Q4H PO 09/22/24 08:15 09/22/24 10:34 2 MG Vancomycin HCl 0 ml @ 0 mls/hr UD IV 09/22/24 09:00 Piperacillin Sod/ Tazobactam Sod 100 ml @ 25 mls/hr Q8HR IV 09/22/24 14:00 Vancomycin HCl 250 ml @ 200 mls/hr Q12H IV 09/22/24 11:00 Furosemide 40 mg BIDD IV 09/22/24 18:00 Spironolactone 50 mg BIDD PO 09/22/24 18:00 Laboratory Results Laboratory Tests 09/22/24 00:30 Chemistry Test 09/22/24 00:30 Albumin 3.4 g/dL (3.2-4.8) Calcium Level 7.6 mg/dL (8.7-10.4) L Magnesium Level 1.8 mg/dL (1.6-2.6) Total Protein 7.3 g/dL (5.7-8.2) Coagulation Test 09/22/24 11:29 Prothrombin Time 15.5 sec (9.3-11.8) H Prothrombin Time INR 1.52 (0.9-1.15) H Lipid panel Test 09/22/24 00:30 Lipase 59 U/L (12-53) H LFT Test 09/22/24 00:30 Alanine Aminotransferase (ALT) 39 U/L (7-40) Alkaline Phosphatase 269 U/L (46-116) H Aspartate Amino Transferase (AST) 296 U/L (13-40) H Total Bilirubin 6.6 mg/dL (0.2-1.0) H Assessment/Plan Assessment/Plan Alcoholic liver disease/liver cirrhosis Ascites Anasarca Cholelithiasis Pulmonary hypertension Abdominal varices Alcoholism Coagulopathy Plan: IV Lasix. Spironolactone. Paracentesis. Vitamin K. GI consult for ascites management. Further plan per orders Plan discussed with: Patient My Orders Orders - JO ELDER MD Procedure Category Date Status Time Chest Portable XY 09/22/24 Resulted 11:00 Respiratory Culture [place] 09/22/24 Logged W/ Gs 11:00 Furosemide Injection PHA 09/22/24 In Process (Lasix Injection) 18:00 Spironolactone PHA 09/22/24 In Process (Aldactone) 18:00 Complete Blood Count LAB 09/23/24 Verified 06:00 Comprehensive LAB 09/23/24 Verified Metabolic Panel 06:00 B-Type Natriuretic LAB 09/23/24 Verified Peptide 06:00 Date of Service: Sep 22, 2024 Billing Provider: JO ELDER MD Common Visit Codes: [id number] INP/OBS CARE(HIGH) JO ELDER MD Sep 22, 2024 13:36
[2024-09-22] MEDS: VANCOMYCIN 1.25GM/250ML 250 ML IV SCH (15:09)
[2024-09-22] MEDS: PIPERACILLIN-TAZOB 3.375GM 100 ML IV SCH (16:30)
[2024-09-22] MEDS: chlordiazePOXIDE HCL 25 MG CAP PO SCH (17:36)
[2024-09-22] MEDS: phytonadione 10 MG in SODIUM CHL 0.9% 50 ML IV ONE (17:36)
[2024-09-22] MEDS: FUROSEMIDE 40 MG/4 ML VIAL IV SCH (17:36)
[2024-09-22] MEDS: SPIRONOLACTONE 25 MG TAB PO SCH (18:38)
[2024-09-22 19:22] LABS: Urine Bacteria None Seen /hpf (None Seen)
[2024-09-22 19:36] LABS: Urine Blood Negative /uL (Negative); Urine Clarity Clear (Clear); Urine Color Dark-Yellow (Yellow); Urine Hyaline Cast FEW /lpf (0 - 2); Urine Protein, UAD TRACE (Negative); Urine Specific Gravity 1.042 (1.001-1.035); Urine Squamous Epithelial Cell FEW /hpf (<5); Urine Urobilinogen 2 mg/dL (Negative); Urine WBC < 1 /HPF (0-3)
[2024-09-22 19:41] LABS: Benzodiazephine Screen, Urine Neg (NEGATIVE); Opiate Scree,Urine Pos (NEGATIVE); Phencyclidine Screen, Urine Neg (NEGATIVE)
[2024-09-22 19:45] LABS: Amphetamine Screen, Urine Neg (NEGATIVE); Barbiturate Scree,Urine Neg (NEGATIVE); Cannabinoid Screen, Urine Neg (NEGATIVE); Cocaine Screen, Urine Neg (NEGATIVE)
[2024-09-23 01:00] VITALS: BP 109/70; PULSE 109; RESP 16; TEMP 98.6; O2SAT 99
[2024-09-23 05:00] VITALS: BP 109/70; PULSE 99; RESP 19; TEMP 98.4; O2SAT 96
[2024-09-23 06:11] LABS: Basophils # (auto) 0 10 ^3/uL (0-0.2); Basophils % (auto) 0.5 % (0.0-2.0); Eosinophils # (auto) 0.1 10 ^3/uL (0-0.8); Eosinophils % (auto) 2.3 % (0.0-7.0); Hemoglobin 8.6 g/dL (13.5-17.5); Lymphocytes # (auto) 0.5 10 ^3/uL (0.4-5.4); Monocytes # (auto) 0.5 10 ^3/uL (0-1.3); Neutrophils # (auto) 3.4 10 ^3/uL (1.6-8.6); Nucleated Red Blood Cells % 0.1 %; Platelet Count (auto) 36 10^3/uL (140-450); White Blood Cell 4.5 10^3/uL (4.4-10.8)
[2024-09-23 06:17] LABS: Hematocrit 27.9 % (41.0-53.0); Lymphocytes % (auto) 10.6 % (10.0-50.0); Mean Corpuscular Hemoglobin 23.8 pg (28.0-32.0); Mean Corpuscular Hgb Conc. 30.9 g/dL (32.0-36.0); Mean Corpuscular Volume 77.1 fL (80.0-100.0); Monocytes % (auto) 11.3 % (0.0-12.0); Neutrophils % (auto) 75.3 % (37.0-80.0); Red Blood Cells 3.62 10^6/uL (4.5-5.90); Red Cell Distribution Width 25.5 % (11.8-14.3)
[2024-09-23 06:28] LABS: Alanine Aminotransferase 30 U/L (7-40); Anion Gap 5 (5-15); BUN/Creatinine Ratio 14.5 (10.0-20.0); Blood Urea Nitrogen 9 mg/dL (9-23); Carbon Dioxide 28 mmol/L (20-31); Chloride 103 mmol/L (98-107); Glucose 84 mg/dL (74-106); Potassium 3.9 mmol/L (3.5-5.1); Sodium 136 mmol/L (136-145)
[2024-09-23 06:29] LABS: Albumin 2.7 g/dL (3.2-4.8); Alkaline Phosphatase 206 U/L (46-116); Aspartate Aminotransferase 171 U/L (13-40); Bilirubin, Total 6.1 mg/dL (0.2-1.0); Calcium 7.6 mg/dL (8.7-10.4)
[2024-09-23 06:42] LABS: Anisocytosis Moderate; Hypochromia Moderate; Platelet Estimate Decreased
[2024-09-23 06:43] LABS: Target Cell FEW
[2024-09-23 06:44] LABS: Stomatocytes Few
[2024-09-23 08:56] VITALS: PULSE 98
--- NOTE | 2024-09-23 09:51 | DVHINCON2 ---
GI Consult Consult Note Date of Consultation: September 23, 2024 Chief Complaint: Ascites and cirrhosis Referring Physician:Ranjana H&P: The patient is a 29-year-old male with a known history of alcoholic cirrhosis who continues to drink alcohol, decompensations including thrombocytopenia, coagulopathy, transaminitis, ascites, varices, with recent paracentesis a week ago was admitted with abdominal pain and ascites. The patient states that he was going to stop drinking but he was not able to receive his medication for withdrawals. He denies any hematemesis or melena. Patient has an abdominal ventral or umbilical hernia, and significant abdominal distention. GI consultation was obtained for a paracentesis. Past Medical History: As above Past Surgical History: Hernia repair Current Medications Medications (Trade) Dose Ordered Sig/Gretchen Route PRN Reason Start Time Stop Time Status Last Admin Multivitamins (Mvi Tab) 1 tab DAILY PO 09/22/24 10:00 09/22/24 11:07 Piperacillin Sod/ Tazobactam Sod 100 ml @ 25 mls/hr Q8HR IV 09/22/24 14:00 09/23/24 07:15 Vancomycin HCl 250 ml @ 200 mls/hr Q12H IV 09/22/24 11:00 09/23/24 00:50 Furosemide (Lasix Injection) 40 mg BIDD IV 09/22/24 18:00 Spironolactone (Aldactone) 50 mg BIDD PO 09/22/24 18:00 09/23/24 07:14 Chlordiazepoxide HCl (Librium Capsule) 25 mg Q6HR PO 09/22/24 18:00 09/23/24 07:14 Pantoprazole Sodium (Protonix) 40 mg DAILY IV 09/23/24 10:00 Social History: Heavy alcohol with 36 beers a day Family History: No gastrointestinal or liver diseases or malignancies Review of Systems: Review of systems per HPI Vital Signs Date Time Temp Pulse Resp B/P (MAP) Pulse Ox O2 Delivery O2 Flow Rate FiO2 09/23/24 08:56 98 Room Air* 0 21 09/23/24 08:00 98.7 19 109/70 (83) 98.7 09/23/24 05:00 96 Physical exam: General: NAD, AAOX3, ill appearing male HEENT: PERRL, no scleral icterus, normal hearing, Heart: RRR, Abdomen: Distended with ascites, umbilical hernia reducible, moderate tenderness to palpation Extremities: no edema, no cyanosis Neurological: CN II-XII intact, sensation intact in all extremities, 5+ strength in all extremities, no asterixis Skin: No rashes, No jaundice Labs: Labs Test 09/23/24 05:50 09/22/24 19:00 09/22/24 11:29 09/22/24 02:25 Range/Units White Blood Count 4.5 4.4-10.8 10^3/uL Red Blood Count 3.62 L 4.5-5.90 10^6/uL Hemoglobin 8.6 #L 13.5-17.5 g/dL Hematocrit 27.9 #L 41.0-53.0 % Mean Corpuscular Volume 77.1 L 80.0-100.0 fL Mean Corpuscular Hemoglobin 23.8 L 28.0-32.0 pg Mean Corpuscular Hemoglobin Concent 30.9 L 32.0-36.0 g/dL Red Cell Distribution Width 25.5 H 11.8-14.3 % Platelet Count 36 L 140-450 10^3/uL Mean Platelet Volume 8.6 6.9-10.8 fL Neutrophils (%) (Auto) 75.3 37.0-80.0 % Lymphocytes (%) (Auto) 10.6 10.0-50.0 % Monocytes (%) (Auto) 11.3 0.0-12.0 % Eosinophils (%) (Auto) 2.3 0.0-7.0 % Basophils (%) (Auto) 0.5 0.0-2.0 % Neutrophils # (Auto) 3.4 1.6-8.6 10 ^3/uL Lymphocytes # (Auto) 0.5 0.4-5.4 10 ^3/uL Monocytes # (Auto) 0.5 0-1.3 10 ^3/uL Eosinophils # (Auto) 0.1 0-0.8 10 ^3/uL Basophils # (Auto) 0 0-0.2 10 ^3/uL Nucleated Red Blood Cells 0.1 % Platelet Estimate Decreased Hypochromasia (manual) Moderate Anisocytosis (manual) Moderate Microcytosis Slight Target Cells Few Stomatocytes Few Sodium Level 136 136-145 mmol/L Potassium Level 3.9 3.5-5.1 mmol/L Chloride Level 103 98-107 mmol/L Carbon Dioxide Level 28 20-31 mmol/L Anion Gap 5 5-15 Blood Urea Nitrogen 9 9-23 mg/dL Creatinine 0.62 L 0.700-1.30 mg/dL Glomerular Filtration Rate Calc 131 >90 mL/min BUN/Creatinine Ratio 14.5 10.0-20.0 Serum Glucose 84 74-106 mg/dL Calcium Level 7.6 L 8.7-10.4 mg/dL Total Bilirubin 6.1 H 0.2-1.0 mg/dL Aspartate Amino Transferase (AST) 171 H 13-40 U/L Alanine Aminotransferase (ALT) 30 7-40 U/L Alkaline Phosphatase 206 H 46-116 U/L B-Type Natriuretic Peptide 18.88 0-100 pg/mL Total Protein 6.0 5.7-8.2 g/dL Albumin 2.7 L 3.2-4.8 g/dL Urine Color Dark-yellow Yellow Urine Clarity Clear Clear Urine pH 6.0 5.0-9.0 Urine Specific [place] 1.042 H 1.001-1.035 Urine Protein Trace H Negative Urine Ketones Negative Negative Urine Blood Negative Negative /uL Urine Nitrite Negative Negative Urine Bilirubin 2+ Negative Urine Urobilinogen 2 H Negative mg/dL Urine Leukocyte Esterase Negative Negative /uL Urine RBC 1 0 - 3 /hpf Urine Microscopic WBC < 1 0-3 /HPF Urine Squamous Epithelial Cells Few <5 /hpf Urine Bacteria None seen None Seen /hpf Urine Hyaline Casts Few 0 - 2 /lpf Urine Glucose Normal Normal mg/dL Urine Opiates Screen Pos NEGATIVE Urine Fentanyl Screen Neg NEGATIVE Urine Barbiturates Screen Neg NEGATIVE Urine Phencyclidine Screen Neg NEGATIVE Urine Amphetamines Screen Neg NEGATIVE Urine Benzodiazepines Screen Neg NEGATIVE Urine Cocaine Screen Neg NEGATIVE Urine Cannabinoids Screen Neg NEGATIVE Prothrombin Time 15.5 H 9.3-11.8 sec Prothrombin Time INR 1.52 H 0.9-1.15 Lactic Acid Level 2.2 *H 0.4-2.0 mmol/L Test 09/22/24 00:30 Range/Units Magnesium Level 1.8 1.6-2.6 mg/dL Ammonia 22 11-32 umol/L Lipase 59 H 12-53 U/L Plasma/Serum Blood Alcohol 202.1 H <10 mg/dL Microbiology Date/Time Source Procedure Growth Status 09/22/24 00:47 Blood Blood Culture - Preliminary NO GROWTH AFTER 24 HOURS OF INCUBATION. Resulted Imaging: Consistent with ascites and cirrhosis Assessment: 1. Alcoholic cirrhosis 2. Acute alcoholic hepatitis 3. Thrombocytopenia 4. Coagulopathy 5.. Varices Plan: The patient was to have a paracentesis by me today however given the thrombocytopenia patient will need platelet transfusion prior to any paracentesis. His platelets have decreased significantly since yesterday and he is at an increase risk of bleeding especially given his coagulopathy in the setting of his thrombocytopenia ETOH withdrawal precautions Continue with IV in vitamin supplementation Follow H and H Continue antibiotics for SBP prophylaxis vs treatment I will be signing off to Dr. Gray tomorrow I would like to thank Dr. Chilel for this referral Date of Service: Sep 23, 2024 Billing Provider: WAGNER BEAULIEU MD Common Visit Codes: [id number] INP/OBS CARE (HIGH) Consultation Codes: [id number] CONSULT <60MIN WAGNER BEAULIEU MD Sep 23, 2024 09:51
[2024-09-23] MEDS: PANTOPRAZOLE 40 MG/10 ML VIAL INJ IV SCH (10:47)
[2024-09-23 11:37] LABS: Hematocrit 31.9 % (41.0-53.0); Hemoglobin 9.4 g/dL (13.5-17.5)
[2024-09-23 11:51] LABS: INR 1.46 (0.9-1.15); Prothrombin Time 14.9 sec (9.3-11.8)
--- NOTE | 2024-09-23 12:39 | DVHPN2 ---
Subjective Still some abdominal pain. Just had bowel movement/normal. Urinating good Reviewed: Care Plan, H&P, Labs, Medications, Previous Orders, Radiology Changes from previous H/P or p: No Changes Objective Vitals Vital Signs Date Time Temp Pulse Resp B/P (MAP) Pulse Ox O2 Delivery O2 Flow Rate FiO2 09/23/24 10:18 119 26 147/82 (103) 97 09/23/24 08:56 Room Air* 0 21 09/23/24 08:00 98.7 98.7 Intake/Output Intake and Output 09/23/24 07:00 Intake Total 566 ml Output Total 250 ml Balance 316 ml Intake Oral 316 ml IV Total 250 ml Output Urine Total 250 ml # Voids 1 General Appearance: Alert, Oriented X3, Cooperative HEENT: Atraumatic Lungs: Clear to auscultation Cardiovascular: Regular rate Abdomen: Other (Prominent abdomen and umbilical hernia/ascites) Extremities: Other (Edema bilateral lower extremities) Medications Current Medications Medications Dose Ordered Sig/Gretchen Route Start Time Stop Time Status Last Admin Dose Admin Acetaminophen/ Hydrocodone Bitart 1 tab Q4HP PRN PO 09/22/24 07:45 09/22/24 10:35 1 TAB Ondansetron HCl 4 mg Q4HP PRN IV 09/22/24 07:45 Multivitamins 1 tab DAILY PO 09/22/24 10:00 09/23/24 10:46 1 TAB Lorazepam 2 mg Q4H PO 09/22/24 08:15 09/23/24 08:31 2 MG Vancomycin HCl 0 ml @ 0 mls/hr UD IV 09/22/24 09:00 Piperacillin Sod/ Tazobactam Sod 100 ml @ 25 mls/hr Q8HR IV 09/22/24 14:00 09/23/24 07:15 25 MLS/HR Vancomycin HCl 250 ml @ 200 mls/hr Q12H IV 09/22/24 11:00 09/23/24 11:23 200 MLS/HR Furosemide 40 mg BIDD IV 09/22/24 18:00 Spironolactone 50 mg BIDD PO 09/22/24 18:00 09/23/24 07:14 50 MG Chlordiazepoxide HCl 25 mg Q6HR PO 09/22/24 18:00 09/23/24 07:14 25 MG Pantoprazole Sodium 40 mg DAILY IV 09/23/24 10:00 09/23/24 10:47 40 MG Laboratory Results Laboratory Tests 09/23/24 05:50 09/23/24 11:16 Chemistry Test 09/23/24 05:50 Albumin 2.7 g/dL (3.2-4.8) L Calcium Level 7.6 mg/dL (8.7-10.4) L Total Protein 6.0 g/dL (5.7-8.2) Coagulation Test 09/23/24 11:16 Prothrombin Time 14.9 sec (9.3-11.8) H Prothrombin Time INR 1.46 (0.9-1.15) H Cardiac Markers Test 09/23/24 05:50 B-Type Natriuretic Peptide 18.88 pg/mL (0-100) LFT Test 09/23/24 05:50 Alanine Aminotransferase (ALT) 30 U/L (7-40) Alkaline Phosphatase 206 U/L (46-116) H Aspartate Amino Transferase (AST) 171 U/L (13-40) H Total Bilirubin 6.1 mg/dL (0.2-1.0) H Urinalysis Test 09/22/24 19:00 Urine Color Dark-yellow (Yellow) Urine Clarity Clear (Clear) Urine pH 6.0 (5.0-9.0) Urine Specific [place] 1.042 (1.001-1.035) Urine Protein Trace (Negative) H Urine Ketones Negative (Negative) Urine Blood Negative /uL (Negative) Urine Nitrite Negative (Negative) Urine Bilirubin 2+ (Negative) Urine Urobilinogen 2 mg/dL (Negative) H Urine Leukocyte Esterase Negative /uL (Negative) Urine RBC 1 /hpf (0 - 3) Urine Microscopic WBC < 1 /HPF (0-3) Urine Squamous Epithelial Cells Few /hpf (<5) Urine Bacteria None seen /hpf (None Seen) Urine Hyaline Casts Few /lpf (0 - 2) Urine Glucose Normal mg/dL (Normal) Microbiology Microbiology Date/Time Source Procedure Growth Status 09/22/24 00:47 Blood Blood Culture - Preliminary NO GROWTH AFTER 24 HOURS OF INCUBATION. Resulted Assessment/Plan Assessment/Plan Alcoholic liver disease/liver cirrhosis Ascites Anasarca Cholelithiasis Pulmonary hypertension Abdominal varices Alcoholism Coagulopathy Thrombocytopenia/worsening Plan: Transfuse platelet. Vitamin K. paracentesis tomorrow. It was not done today due to the decrease in platelets and coagulopathy Plan discussed with: Patient My Orders Orders - JO ELDER MD Procedure Category Date Status Time * Gi Dvh Hearing Aid Mechanic CONS 09/22/24 Transmitted 13:37 Chlordiazepoxide Hcl PHA 09/22/24 In Process Capsule (Librium Ca 18:00 Complete Blood Count LAB 09/24/24 Verified 06:00 Prothrombin Time W/ LAB 09/24/24 Verified INR 06:00 Hemoglobin & LAB 09/23/24 Logged Hematocrit 16:56 Hemoglobin & LAB 09/23/24 Logged Hematocrit 22:56 Pheresis Platelets BBK 09/23/24 Logged 10:56 Type And Screen BBK 09/23/24 In Process 10:56 Date of Service: Sep 23, 2024 Billing Provider: JO ELDER MD Common Visit Codes: [id number] INP/OBS CARE(HIGH) JO ELDER MD Sep 23, 2024 12:39
[2024-09-23] MEDS: phytonadione 10 MG in SODIUM CHL 0.9% 50 ML IV ONE (14:14)
[2024-09-23 17:14] LABS: Hematocrit 26.3 % (41.0-53.0)
[2024-09-23 19:28] VITALS: BP 130/78; PULSE 108; RESP 16; TEMP 98.3; O2SAT 82
[2024-09-23 22:53] LABS: Hematocrit 29.1 % (41.0-53.0); Hemoglobin 8.3 g/dL (13.5-17.5)
[2024-09-23 23:42] VITALS: BP 119/50; PULSE 105; RESP 19; TEMP 99.2; O2SAT 97
[2024-09-24] VITALS (9 sets, daily range): BP systolic 107–121; BP diastolic 69–82; PULSE 88–111; RESP 17–20; TEMP 98.2–99.5; O2SAT 92–97
[2024-09-24 07:40] LABS: INR 1.56 (0.9-1.15); Prothrombin Time 15.8 sec (9.3-11.8)
[2024-09-24 07:42] LABS: Basophils # (auto) 0 10 ^3/uL (0-0.2); Eosinophils # (auto) 0.2 10 ^3/uL (0-0.8); Hematocrit 25.2 % (41.0-53.0); Lymphocytes # (auto) 0.5 10 ^3/uL (0.4-5.4); Monocytes # (auto) 0.5 10 ^3/uL (0-1.3); Nucleated Red Blood Cells % 0.1 %; White Blood Cell 4.1 10^3/uL (4.4-10.8)
[2024-09-24 07:46] LABS: Basophils % (auto) 0.4 % (0.0-2.0); Eosinophils % (auto) 4.8 % (0.0-7.0); Hemoglobin 7.8 g/dL (13.5-17.5); Lymphocytes % (auto) 12.4 % (10.0-50.0); Mean Corpuscular Hemoglobin 23.8 pg (28.0-32.0); Mean Corpuscular Hgb Conc. 31.1 g/dL (32.0-36.0); Mean Corpuscular Volume 76.4 fL (80.0-100.0); Monocytes % (auto) 12.2 % (0.0-12.0); Neutrophils # (auto) 2.9 10 ^3/uL (1.6-8.6); Neutrophils % (auto) 70.2 % (37.0-80.0); Platelet Count (auto) 36 10^3/uL (140-450)
[2024-09-24 07:51] LABS: Red Cell Distribution Width 25.5 % (11.8-14.3)
--- NOTE | 2024-09-24 10:04 | DVH ---
US PARACENTESIS, HISTORY: ASCITES PROCEDURE: Informed consent was obtained. The patient was placed in supine position. A limited locali zation ultrasound of the abdomen was obtained, and the skin site over the largest pocket of fluid was marked and entry site was prepped with chlorhexidine which was allowed to dry and draped in the usua l sterile fashion. Time out was performed. Following administration of 1% lidocaine local anesthetic, a 5 Tristanian centesis needle catheter was percutaneously inserted into the peritoneal collection until fluid was aspirated. The catheter was advanced into the fluid collection and the needle removed. Abo ut 5100 cc of fluid was aspirated and specimen sent for appropriate cultures/cytology/cultures and cy tology. The catheter was then removed and a sterile dressing applied. No immediate complication was i dentified. FINDINGS: Limited ultrasound imaging demonstrates moderate ascites. Aspirated fluid was clear and ser ous. IMPRESSION: US-guided paracentesis with 5.1L removed.
[2024-09-24] MEDS ORDERED: LORazepam 2MG/ML-1ML VIAL IV PRN (12:00)
--- NOTE | 2024-09-24 12:07 | DVHPN2 ---
Progress Note Date Seen: Sep 24, 2024 Medical Necessity Reason Pt with a Central, PICC or Fol: No Subjective Patient reports: No new complaints Review of Systems: HEENT:Normal, CVS:Normal, RESPIRATORY:Normal, GI:Normal, :Normal, MSK:Normal, NEURO:Normal Objective vital signs Vital Sign Date Time Temp Pulse Resp B/P (MAP) Pulse Ox O2 Delivery O2 Flow Rate FiO2 09/24/24 09:24 98.8 93 17 117/76 (90) 97 98.8 09/24/24 08:00 Room Air* 0 21 Total Intake and Output 09/23/24 09/23/24 09/24/24 15:00 23:00 07:00 Intake Total 100 ml 510 ml Output Total 1400 ml Balance 100 ml -890 ml medications Current Medications Medications Dose Ordered Sig/Gretchen Route Start Time Stop Time Status Last Admin Dose Admin Acetaminophen/ Hydrocodone Bitart 1 tab Q4HP PRN PO 09/22/24 07:45 09/24/24 05:19 1 TAB Ondansetron HCl 4 mg Q4HP PRN IV 09/22/24 07:45 Multivitamins 1 tab DAILY PO 09/22/24 10:00 09/24/24 08:32 1 TAB Lorazepam 2 mg Q4H PO 09/22/24 08:15 09/24/24 11:52 2 MG Vancomycin HCl 0 ml @ 0 mls/hr UD IV 09/22/24 09:00 Piperacillin Sod/ Tazobactam Sod 100 ml @ 25 mls/hr Q8HR IV 09/22/24 14:00 09/24/24 05:17 25 MLS/HR Vancomycin HCl 250 ml @ 200 mls/hr Q12H IV 09/22/24 11:00 09/24/24 11:14 200 MLS/HR Furosemide 40 mg BIDD IV 09/22/24 18:00 09/24/24 05:16 40 MG Spironolactone 50 mg BIDD PO 09/22/24 18:00 09/24/24 05:17 50 MG Chlordiazepoxide HCl 25 mg Q6HR PO 09/22/24 18:00 09/24/24 11:52 25 MG Pantoprazole Sodium 40 mg DAILY IV 09/23/24 10:00 09/24/24 08:31 40 MG Examination: GENERAL:Normal, HEENT:Normal, NECK:Normal, LUNGS:Normal, CVS:Normal, ABDOMEN:Normal, ABDOMEN:Abnormal (distension, umbilical hernia), MSK:Normal, SKIN:Normal, NEURO:Normal, :Normal laboratory and microbiology Laboratory Tests 09/24/24 06:47 09/23/24 05:50 Test 09/23/24 05:50 Range/Units Serum Glucose 84 74-106 mg/dL Microbiology Date/Time Source Procedure Growth Status 09/22/24 00:47 Blood Blood Culture - Preliminary NO GROWTH AFTER 48 HOURS OF INCUBATION. Resulted Problem List/Assessment/Plan Problem List/Assessment/Plan #1 liver cirrhosis/liver failure #2 alcohol abuse #3 pancytopenia due to hypersplenism #4 gallstones #5 ascites s/p paracentesis #6 umbilical hernia advance care planning- full code-time spent 19 mins Plan discussed with: Patient My Orders My Orders Orders - DHEERAJ MONTANO MD Procedure Category Date Status Time Chlordiazepoxide Hcl PHA 09/24/24 Verified Capsule (Librium Ca 14:00 Lorazepam 2mg/Ml Inj PHA 09/24/24 Verified (Ativan Inj) 12:00 Pt Request For Service PT 09/24/24 Verified 11:59 Furosemide Tablet PHA 09/25/24 Verified (Lasix Tablet) 10:00 Thiamine Inj PHA 09/24/24 Verified 12:00 Thiamine Inj PHA 09/25/24 Verified 10:00 Ceftriaxone Ivpb PHA 09/25/24 Verified Rocephin 09:00 Complete Blood Count LAB 09/25/24 Verified 06:00 Comprehensive LAB 09/25/24 Verified Metabolic Panel 06:00 Magnesium LAB 09/25/24 Verified 05:00 Phosphorus LAB 09/25/24 Verified 06:00 * All Source Intelligence Analyst CONS 09/24/24 Verified Consult Date of Service: Sep 24, 2024 Billing Provider: DHEERAJ MONTANO MD Common Visit Codes: [id number] INP/OBS CARE(HIGH) Secondary Visit Codes: [id number] CARE PLAN 30 MINUTES DHEERAJ MONTANO MD Sep 24, 2024 12:07
[2024-09-24 13:02] LABS: Body Fluid Red Blood Cells 740 CUMM (0-2000); Body Fluid White Blood Cells 136 CUMM (0-200)
[2024-09-24 13:11] LABS: Body Fluid Polymorphonuclear 7 % (0-25)
[2024-09-24] MEDS: chlordiazePOXIDE HCL 25 MG CAP PO SCH (13:18)
[2024-09-24] MEDS: LACTULOSE 20Gm/30ML SOLN PO ONE (13:27)
[2024-09-24] MEDS: THIAMINE 100mg/ml INJ (200mg/2ml VIAL) IV ONE (13:27)
--- NOTE | 2024-09-24 20:26 | DVHPN2 ---
Progress Note - Dictate Date Seen: Sep 24, 2024 Medical Necessity Reason Pt with a Central, PICC or Fol: No Subjective Patient seen at bedside S/P paracentesis with the removal of 5.1 L of fluid Abdomen is less distended Patient is still weak Last endoscopy in December of 2023 when patient had upper GI bleed Operative Report DATE OF OPERATION: 12/16/23 PROCEDURE: Upper Endoscopy with biopsy. PREOPERATIVE INDICATION: The patient is a 28 -year-old male undergoing endoscopy for nausea vomiting upper GI bleed with history of recent endoscopy and banding of 1 esophageal varix POSTOPERATIVE DIAGNOSES: 1. There was a superficial area of inflammation and esophagitis in the distal esophagus likely at the site of recent band ligation that was healing with no visible vessel or active bleeding 2. Mild to moderate antral gastritis with prepyloric antral gastric erosions 3. Otherwise normal examination of the second and third part of the duodenum with no fresh or old blood in the stomach and no esophageal or gastric varices noted at this time vital signs Vital Sign Date Time Temp Pulse Resp B/P (MAP) Pulse Ox O2 Delivery O2 Flow Rate FiO2 09/24/24 17:00 98.3 104 17 107/72 (84) 97 98.3 09/24/24 08:00 Room Air* 0 21 Total Intake and Output 09/23/24 09/23/24 09/24/24 15:00 23:00 07:00 Intake Total 100 ml 510 ml Output Total 1400 ml Balance 100 ml -890 ml medications Current Medications Medications Dose Ordered Sig/Gretchen Route Start Time Stop Time Status Last Admin Dose Admin Acetaminophen/ Hydrocodone Bitart 1 tab Q4HP PRN PO 09/22/24 07:45 09/24/24 05:19 1 TAB Ondansetron HCl 4 mg Q4HP PRN IV 09/22/24 07:45 Multivitamins 1 tab DAILY PO 09/22/24 10:00 09/24/24 08:32 1 TAB Spironolactone 50 mg BIDD PO 09/22/24 18:00 09/24/24 17:14 50 MG Pantoprazole Sodium 40 mg DAILY IV 09/23/24 10:00 09/24/24 08:31 40 MG Chlordiazepoxide HCl 25 mg Q8HR PO 09/24/24 14:00 Lorazepam 1 mg Q6HP PRN IV 09/24/24 12:00 Furosemide 40 mg DAILY PO 09/25/24 10:00 Thiamine HCl 100 mg DAILY IV 09/25/24 10:00 Ceftriaxone Sodium 50 ml @ 100 mls/hr DAILY@09 IV 09/25/24 09:00 Lactulose 30 ml BID PO 09/24/24 22:00 objective General Appearance: Alert, Oriented X3, Cooperative HEENT: Atraumatic Lungs: Clear to auscultation Cardiovascular: Regular rate Abdomen: Non tense ascites, soft, umbilical hernia reducible Extremities: Minimal pedal edema laboratory and microbiology Laboratory Tests 09/24/24 06:47 09/23/24 05:50 Test 09/23/24 05:50 Range/Units Serum Glucose 84 74-106 mg/dL Problems(with codes): (1) Liver cirrhosis (2) Ascites (3) Acute abdominal pain (4) Alcohol intoxication (5) Alcohol withdrawal (6) Alcohol abuse (7) GI bleed (8) Gallstones (9) Ascites due to alcoholic cirrhosis Prognosis Plan Continue supportive care Patient was counseled about discontinuing alcohol Patient states he drinks alcohol every night because of underlying insomnia to help him sleep Consider treatment with trazodone Continue diuretics and low-[facility] 28.2 points suggestive of good prognosis, patient does not appear to need steroids His MELD score is 19 points which is predictive of 6% three-month mortality Continue supportive care Physical therapy Discharge planning as per hospitalist Plan discussed with: Patient, Other (Nurse) KATELYN JOYCE MD Sep 24, 2024 20:26
[2024-09-24] MEDS: LACTULOSE 20Gm/30ML SOLN PO SCH (21:52)
[2024-09-25] VITALS (9 sets, daily range): BP systolic 92–139; BP diastolic 56–77; PULSE 96–113; RESP 16–21; TEMP 98.2–101.1; O2SAT 94–96
[2024-09-25 07:46] LABS: Basophils # (auto) 0 10 ^3/uL (0-0.2); Basophils % (auto) 0.3 % (0.0-2.0); Eosinophils # (auto) 0.1 10 ^3/uL (0-0.8); Hematocrit 27.5 % (41.0-53.0); Hemoglobin 8.5 g/dL (13.5-17.5); Lymphocytes # (auto) 0.5 10 ^3/uL (0.4-5.4); Lymphocytes % (auto) 10.1 % (10.0-50.0); Monocytes # (auto) 0.6 10 ^3/uL (0-1.3); Neutrophils # (auto) 3.5 10 ^3/uL (1.6-8.6); Nucleated Red Blood Cells % 0.1 %; Red Blood Cells 3.61 10^6/uL (4.5-5.90); White Blood Cell 4.7 10^3/uL (4.4-10.8)
[2024-09-25 07:48] LABS: Eosinophils % (auto) 2.4 % (0.0-7.0); Mean Corpuscular Hemoglobin 23.7 pg (28.0-32.0); Mean Corpuscular Hgb Conc. 31.1 g/dL (32.0-36.0); Mean Corpuscular Volume 76.2 fL (80.0-100.0); Monocytes % (auto) 12.5 % (0.0-12.0); Neutrophils % (auto) 74.7 % (37.0-80.0); Platelet Count (auto) 51 10^3/uL (140-450)
[2024-09-25 07:52] LABS: Red Cell Distribution Width 25.5 % (11.8-14.3)
[2024-09-25 07:54] LABS: Alanine Aminotransferase 29 U/L (7-40); Anion Gap 5 (5-15); BUN/Creatinine Ratio 14.9 (10.0-20.0); Blood Urea Nitrogen 11 mg/dL (9-23); Carbon Dioxide 26 mmol/L (20-31); Chloride 102 mmol/L (98-107); Glucose 92 mg/dL (74-106); Magnesium 1.9 mg/dL (1.6-2.6); Potassium 3.8 mmol/L (3.5-5.1)
[2024-09-25 08:07] LABS: Albumin 2.7 g/dL (3.2-4.8); Alkaline Phosphatase 195 U/L (46-116); Aspartate Aminotransferase 138 U/L (13-40); Bilirubin, Total 7.1 mg/dL (0.2-1.0); Calcium 7.6 mg/dL (8.7-10.4); Sodium 133 mmol/L (136-145)
[2024-09-25] MEDS: cefTRIAXone 1GM/50ML D5W 50 ML IV SCH (08:55)
[2024-09-25] MEDS: FUROSEMIDE 40 MG TAB PO SCH (08:55)
[2024-09-25] MEDS: THIAMINE 100mg/ml INJ (200mg/2ml VIAL) IV SCH (08:56)
--- NOTE | 2024-09-25 11:15 | DVHPN2 ---
Progress Note Date Seen: Sep 25, 2024 Medical Necessity Reason Pt with a Central, PICC or Fol: No Subjective Patient reports: No new complaints Review of Systems: HEENT:Normal, CVS:Normal, RESPIRATORY:Normal, GI:Normal, :Normal, MSK:Normal, NEURO:Normal Objective vital signs Vital Sign Date Time Temp Pulse Resp B/P (MAP) Pulse Ox O2 Delivery O2 Flow Rate FiO2 09/25/24 09:00 99.6 110 16 122/75 (91) 94 99.6 09/25/24 08:00 Room Air* 0 21 Total Intake and Output 09/24/24 09/24/24 09/25/24 15:00 23:00 07:00 Intake Total 800 ml 1000 ml Output Total 1600 ml Balance -800 ml 1000 ml medications Current Medications Medications Dose Ordered Sig/Gretchen Route Start Time Stop Time Status Last Admin Dose Admin Acetaminophen/ Hydrocodone Bitart 1 tab Q4HP PRN PO 09/22/24 07:45 09/25/24 03:28 1 TAB Ondansetron HCl 4 mg Q4HP PRN IV 09/22/24 07:45 Multivitamins 1 tab DAILY PO 09/22/24 10:00 09/25/24 08:56 1 TAB Spironolactone 50 mg BIDD PO 09/22/24 18:00 09/25/24 06:09 50 MG Pantoprazole Sodium 40 mg DAILY IV 09/23/24 10:00 09/25/24 08:56 40 MG Chlordiazepoxide HCl 25 mg Q8HR PO 09/24/24 14:00 09/25/24 06:10 25 MG Lorazepam 1 mg Q6HP PRN IV 09/24/24 12:00 Furosemide 40 mg DAILY PO 09/25/24 10:00 09/25/24 08:55 40 MG Thiamine HCl 100 mg DAILY IV 09/25/24 10:00 09/25/24 08:56 100 MG Ceftriaxone Sodium 50 ml @ 100 mls/hr DAILY@09 IV 09/25/24 09:00 09/25/24 08:55 100 MLS/HR Lactulose 30 ml BID PO 09/24/24 22:00 09/25/24 08:56 30 ML Examination: GENERAL:Normal, HEENT:Normal, NECK:Normal, LUNGS:Normal, CVS:Normal, ABDOMEN:Normal, ABDOMEN:Abnormal (ascites), MSK:Normal, SKIN:Normal, NEURO:Normal, :Normal laboratory and microbiology Laboratory Tests 09/25/24 06:48 Test 09/25/24 06:48 Range/Units Serum Glucose 92 74-106 mg/dL Microbiology Date/Time Source Procedure Growth Status 09/24/24 11:55 Ascities Fluid Gram Stain - Final Resulted 09/24/24 11:55 Ascities Fluid Body Fluid Culture Pending Resulted 09/22/24 00:47 Blood Blood Culture - Preliminary NO GROWTH AFTER 72 HOURS OF INCUBATION. Resulted Problem List/Assessment/Plan Problem List/Assessment/Plan #1 liver cirrhosis/liver failure #2 alcohol abuse #3 pancytopenia due to hypersplenism #4 gallstones #5 ascites s/p paracentesis #6 umbilical hernia #7 ?sepsis/sbp: iv antibiotics advance care planning- full code-time spent 19 mins Plan discussed with: Patient My Orders My Orders Orders - DHEERAJ MONTANO MD Procedure Category Date Status Time Chlordiazepoxide Hcl PHA 09/24/24 In Process Capsule (Librium Ca 14:00 Lorazepam 2mg/Ml Inj PHA 09/24/24 In Process (Ativan Inj) 12:00 Pt Request For Service PT 09/24/24 Logged 11:59 Furosemide Tablet PHA 09/25/24 In Process (Lasix Tablet) 10:00 Thiamine Inj PHA 09/25/24 In Process 10:00 Ceftriaxone 1gm/50ml PHA 09/25/24 In Process D5w (Rocephin) 09:00 Complete Blood Count LAB 09/25/24 In Process 06:00 * Helpdesk Manager CONS 09/24/24 Transmitted Consult Lactulose Oral PHA 09/24/24 In Process 22:00 Rbc Morphology LAB 09/25/24 In Process 06:48 Date of Service: Sep 25, 2024 Billing Provider: DHEERAJ MONTANO MD Common Visit Codes: [id number] INP/OBS CARE(HIGH) DHEERAJ MONTANO MD Sep 25, 2024 11:15
[2024-09-25 11:56] LABS: Platelet Estimate Decreased
[2024-09-25 11:58] LABS: Anisocytosis Moderate; Hypochromia Moderate; Target Cell FEW
[2024-09-25 13:06] LABS: Protein, Body Fluid 0.7 g/dL (.)
[2024-09-25] MEDS: metroNIDAZOLE 500MG/100ML 100 ML IV SCH (13:42)
[2024-09-25 21:36] LABS: Urine Bacteria None Seen /hpf (None Seen)
--- NOTE | 2024-09-25 21:54 | DVHPN2 ---
Progress Note - Dictate Date Seen: Sep 25, 2024 Medical Necessity Reason Pt with a Central, PICC or Fol: No Subjective Patient seen at bedside ; sleeping comfortably Patient has a sitter at bedside as he was pulling out his IVs. S/P paracentesis with the removal of 5.1 L of fluid Abdomen is less distended Patient is still weak; no active GI bleeding reported Last endoscopy in December of 2023 when patient had upper GI bleed Operative Report DATE OF OPERATION: 12/16/23 PROCEDURE: Upper Endoscopy with biopsy. PREOPERATIVE INDICATION: The patient is a 28 -year-old male undergoing endoscopy for nausea vomiting upper GI bleed with history of recent endoscopy and banding of 1 esophageal varix POSTOPERATIVE DIAGNOSES: 1. There was a superficial area of inflammation and esophagitis in the distal esophagus likely at the site of recent band ligation that was healing with no visible vessel or active bleeding 2. Mild to moderate antral gastritis with prepyloric antral gastric erosions 3. Otherwise normal examination of the second and third part of the duodenum with no fresh or old blood in the stomach and no esophageal or gastric varices noted at this time vital signs Vital Sign Date Time Temp Pulse Resp B/P (MAP) Pulse Ox O2 Delivery O2 Flow Rate FiO2 09/25/24 16:33 99.3 100 16 109/73 (85) 96 99.3 09/25/24 08:00 Room Air* 0 21 Total Intake and Output 09/24/24 09/24/24 09/25/24 15:00 23:00 07:00 Intake Total 800 ml 1000 ml Output Total 1600 ml Balance -800 ml 1000 ml medications Current Medications Medications Dose Ordered Sig/Gretchen Route Start Time Stop Time Status Last Admin Dose Admin Acetaminophen/ Hydrocodone Bitart 1 tab Q4HP PRN PO 09/22/24 07:45 09/25/24 03:28 1 TAB Ondansetron HCl 4 mg Q4HP PRN IV 09/22/24 07:45 Multivitamins 1 tab DAILY PO 09/22/24 10:00 09/25/24 08:56 1 TAB Spironolactone 50 mg BIDD PO 09/22/24 18:00 09/25/24 18:41 50 MG Pantoprazole Sodium 40 mg DAILY IV 09/23/24 10:00 09/25/24 08:56 40 MG Chlordiazepoxide HCl 25 mg Q8HR PO 09/24/24 14:00 09/25/24 13:43 25 MG Lorazepam 1 mg Q6HP PRN IV 09/24/24 12:00 Furosemide 40 mg DAILY PO 09/25/24 10:00 09/25/24 08:55 40 MG Thiamine HCl 100 mg DAILY IV 09/25/24 10:00 09/25/24 08:56 100 MG Ceftriaxone Sodium 50 ml @ 100 mls/hr DAILY@09 IV 09/25/24 09:00 09/25/24 08:55 100 MLS/HR Lactulose 30 ml BID PO 09/24/24 22:00 09/25/24 08:56 30 ML Metronidazole 100 ml @ 100 mls/hr Q8HR IV 09/25/24 14:00 09/25/24 13:42 100 MLS/HR objective General Appearance: Alert, Oriented X3, Cooperative HEENT: Atraumatic Lungs: Clear to auscultation Cardiovascular: Regular rate Abdomen: Non tense ascites, soft, umbilical hernia reducible Extremities: Minimal pedal edema laboratory and microbiology Laboratory Tests 09/25/24 06:48 Test 09/25/24 06:48 Range/Units Serum Glucose 92 74-106 mg/dL Problems(with codes): (1) Ascites due to alcoholic cirrhosis (2) Gallstones (3) Alcohol withdrawal (4) Alcohol abuse (5) Liver cirrhosis (6) Ascites (7) Splenomegaly (8) Elevated liver enzymes Prognosis Plan Continue supportive care Patient was counseled about discontinuing alcohol Patient states he drinks alcohol every night because of underlying insomnia to help him sleep Consider treatment with trazodone Continue diuretics and low-salt diet [place] discrimination function 28.2 points suggestive of good prognosis, patient does not appear to need steroids His MELD score is 19 points which is predictive of 6% three-month mortality Continue supportive care Physical therapy Discharge planning as per hospitalist Plan discussed with: Patient, Other (Sitter and RN) KATELYN JOYCE MD Sep 25, 2024 21:53
[2024-09-25 21:55] LABS: Urine Blood 2+ /uL (Negative); Urine Clarity Clear (Clear); Urine Color Colorless (Yellow); Urine Protein, UAD TRACE (Negative); Urine Specific Gravity 1.005 (1.001-1.035); Urine Squamous Epithelial Cell None Seen /hpf (<5); Urine Urobilinogen Normal (Negative); Urine WBC 2 /HPF (0-3); Urine pH 7.5 (5.0-9.0)
[2024-09-26] VITALS (8 sets, daily range): BP systolic 107–125; BP diastolic 65–83; PULSE 91–105; RESP 17–20; TEMP 97.9–98.9; O2SAT 93–97
[2024-09-26 06:41] LABS: Basophils # (auto) 0 10 ^3/uL (0-0.2); Eosinophils # (auto) 0.2 10 ^3/uL (0-0.8); Lymphocytes # (auto) 0.5 10 ^3/uL (0.4-5.4); Mean Corpuscular Hemoglobin 23.9 pg (28.0-32.0); Monocytes # (auto) 0.6 10 ^3/uL (0-1.3)
[2024-09-26 06:43] LABS: Basophils % (auto) 0.4 % (0.0-2.0); Eosinophils % (auto) 3.6 % (0.0-7.0); Hematocrit 26.6 % (41.0-53.0); Hemoglobin 8.4 g/dL (13.5-17.5); Lymphocytes % (auto) 9.9 % (10.0-50.0); Mean Corpuscular Hgb Conc. 31.4 g/dL (32.0-36.0); Mean Corpuscular Volume 76.2 fL (80.0-100.0); Monocytes % (auto) 11.8 % (0.0-12.0); Neutrophils # (auto) 3.9 10 ^3/uL (1.6-8.6); Neutrophils % (auto) 74.3 % (37.0-80.0); Nucleated Red Blood Cells % 0.1 %; Platelet Count (auto) 53 10^3/uL (140-450); Red Blood Cells 3.49 10^6/uL (4.5-5.90); Red Cell Distribution Width 25.3 % (11.8-14.3); White Blood Cell 5.2 10^3/uL (4.4-10.8)
[2024-09-26 06:57] LABS: Alanine Aminotransferase 28 U/L (7-40); Anion Gap 6 (5-15); BUN/Creatinine Ratio 17.6 (10.0-20.0); Blood Urea Nitrogen 12 mg/dL (9-23); Carbon Dioxide 26 mmol/L (20-31); Chloride 103 mmol/L (98-107); Glucose 87 mg/dL (74-106); Potassium 3.9 mmol/L (3.5-5.1); Total Protein 5.8 g/dL (5.7-8.2)
[2024-09-26 07:11] LABS: Albumin 2.5 g/dL (3.2-4.8); Alkaline Phosphatase 180 U/L (46-116); Aspartate Aminotransferase 120 U/L (13-40); Bilirubin, Total 6.6 mg/dL (0.2-1.0); Calcium 7.8 mg/dL (8.7-10.4); Sodium 135 mmol/L (136-145)
--- NOTE | 2024-09-26 11:05 | DVHPN2 ---
Progress Note Date Seen: Sep 26, 2024 Medical Necessity Reason Pt with a Central, PICC or Fol: No Subjective Patient reports: No new complaints Review of Systems: HEENT:Normal, CVS:Normal, RESPIRATORY:Normal, GI:Normal, :Normal, MSK:Normal, NEURO:Normal Objective vital signs Vital Sign Date Time Temp Pulse Resp B/P (MAP) Pulse Ox O2 Delivery O2 Flow Rate FiO2 09/26/24 08:46 125/83 09/26/24 05:00 98.8 93 17 96 98.8 09/25/24 20:00 Room Air* 0 21 Total Intake and Output 09/25/24 09/25/24 09/26/24 15:00 23:00 07:00 Intake Total 150 ml 904 ml 100 ml Output Total 880 ml 400 ml Balance 150 ml 24 ml -300 ml medications Current Medications Medications Dose Ordered Sig/Gretchen Route Start Time Stop Time Status Last Admin Dose Admin Acetaminophen/ Hydrocodone Bitart 1 tab Q4HP PRN PO 09/22/24 07:45 09/26/24 08:57 1 TAB Ondansetron HCl 4 mg Q4HP PRN IV 09/22/24 07:45 Multivitamins 1 tab DAILY PO 09/22/24 10:00 09/26/24 08:45 1 TAB Spironolactone 50 mg BIDD PO 09/22/24 18:00 09/26/24 05:56 50 MG Pantoprazole Sodium 40 mg DAILY IV 09/23/24 10:00 09/26/24 08:45 40 MG Chlordiazepoxide HCl 25 mg Q8HR PO 09/24/24 14:00 09/26/24 05:56 25 MG Lorazepam 1 mg Q6HP PRN IV 09/24/24 12:00 Furosemide 40 mg DAILY PO 09/25/24 10:00 09/26/24 08:46 40 MG Thiamine HCl 100 mg DAILY IV 09/25/24 10:00 09/26/24 08:45 100 MG Ceftriaxone Sodium 50 ml @ 100 mls/hr DAILY@09 IV 09/25/24 09:00 09/26/24 08:44 100 MLS/HR Lactulose 30 ml BID PO 09/24/24 22:00 09/26/24 08:45 30 ML Metronidazole 100 ml @ 100 mls/hr Q8HR IV 09/25/24 14:00 09/26/24 06:01 100 MLS/HR Examination: GENERAL:Normal, HEENT:Normal, NECK:Normal, LUNGS:Normal, CVS:Normal, ABDOMEN:Normal, ABDOMEN:Abnormal (distension), MSK:Normal, SKIN:Normal, NEURO:Normal, :Normal laboratory and microbiology Laboratory Tests 09/26/24 06:03 Test 09/26/24 06:03 Range/Units Serum Glucose 87 74-106 mg/dL Microbiology Date/Time Source Procedure Growth Status 09/24/24 11:55 Ascities Fluid Gram Stain - Final Resulted 09/24/24 11:55 Ascities Fluid Body Fluid Culture - Preliminary Resulted 09/22/24 00:47 Blood Blood Culture - Preliminary NO GROWTH AFTER 72 HOURS OF INCUBATION. Resulted Problem List/Assessment/Plan Problem List/Assessment/Plan #1 liver cirrhosis/liver failure #2 alcohol abuse #3 pancytopenia due to hypersplenism #4 gallstones #5 ascites s/p paracentesis #6 umbilical hernia #7 ?sepsis/sbp: iv antibiotics advance care planning- full code-time spent 19 mins Plan discussed with: Patient My Orders My Orders Orders - DHEERAJ MONTANO MD Procedure Category Date Status Time Metronidazole PHA 09/25/24 In Process 500mg/100ml (Flagyl 14:00 Discontinue Tele ARACELY 09/25/24 In Process 11:13 Transfer Orders XFER 09/25/24 Transmitted 11:13 * Arbitrator CONS 09/25/24 Transmitted Consult Chlordiazepoxide Hcl PHA 09/26/24 Transmitted Capsule (Librium Ca 11:15 * Arbitrator CONS 09/26/24 Transmitted Consult Date of Service: Sep 26, 2024 Billing Provider: DHEERAJ MONTANO MD Common Visit Codes: [id number] INP/OBS CARE(HIGH) DHEERAJ MONTANO MD Sep 26, 2024 11:05
--- NOTE | 2024-09-26 15:18 | DVH ---
ULTRASOUND ABDOMEN limited, 4 QUADRANTS INDICATION: FLUID CHECK, PARA DONE 09/24/24 Evaluate for ascites. TECHNIQUE: The four quadrants of the abdomen were scanned in benites-scale to assess for the presence of ascites. N o solid organ assessment was performed. FINDINGS: Small volume ascites. IMPRESSIONS: 1. Small volume ascites.
[2024-09-26] MEDS: chlordiazePOXIDE HCL 25 MG CAP PO PRN (17:41)
--- NOTE | 2024-09-26 22:37 | DVHPN2 ---
Progress Note - Dictate Date Seen: Sep 26, 2024 Medical Necessity Reason Pt with a Central, PICC or Fol: No Subjective S/P paracentesis with the removal of 5.1 L of fluid Abdomen is less distended Patient is still weak; no active GI bleeding reported Last endoscopy in December of 2023 when patient had upper GI bleed Operative Report DATE OF OPERATION: 12/16/23 PROCEDURE: Upper Endoscopy with biopsy. PREOPERATIVE INDICATION: The patient is a 28 -year-old male undergoing endoscopy for nausea vomiting upper GI bleed with history of recent endoscopy and banding of 1 esophageal varix POSTOPERATIVE DIAGNOSES: 1. There was a superficial area of inflammation and esophagitis in the distal esophagus likely at the site of recent band ligation that was healing with no visible vessel or active bleeding 2. Mild to moderate antral gastritis with prepyloric antral gastric erosions 3. Otherwise normal examination of the second and third part of the duodenum with no fresh or old blood in the stomach and no esophageal or gastric varices noted at this time vital signs Vital Sign Date Time Temp Pulse Resp B/P (MAP) Pulse Ox O2 Delivery O2 Flow Rate FiO2 09/26/24 21:00 98.9 91 19 109/69 (82) 96 98.9 09/26/24 08:00 Room Air* 0 21 Total Intake and Output 09/25/24 09/25/24 09/26/24 15:00 23:00 07:00 Intake Total 150 ml 904 ml 100 ml Output Total 880 ml 400 ml Balance 150 ml 24 ml -300 ml medications Current Medications Medications Dose Ordered Sig/Gretchen Route Start Time Stop Time Status Last Admin Dose Admin Acetaminophen/ Hydrocodone Bitart 1 tab Q4HP PRN PO 09/22/24 07:45 09/26/24 14:20 1 TAB Ondansetron HCl 4 mg Q4HP PRN IV 09/22/24 07:45 Multivitamins 1 tab DAILY PO 09/22/24 10:00 09/26/24 08:45 1 TAB Spironolactone 50 mg BIDD PO 09/22/24 18:00 09/26/24 17:41 50 MG Pantoprazole Sodium 40 mg DAILY IV 09/23/24 10:00 09/26/24 08:45 40 MG Furosemide 40 mg DAILY PO 09/25/24 10:00 09/26/24 08:46 40 MG Thiamine HCl 100 mg DAILY IV 09/25/24 10:00 09/26/24 08:45 100 MG Ceftriaxone Sodium 50 ml @ 100 mls/hr DAILY@09 IV 09/25/24 09:00 09/26/24 08:44 100 MLS/HR Lactulose 30 ml BID PO 09/24/24 22:00 09/26/24 21:56 30 ML Metronidazole 100 ml @ 100 mls/hr Q8HR IV 09/25/24 14:00 09/26/24 21:56 100 MLS/HR Chlordiazepoxide HCl 25 mg Q8HR PRN PO 09/26/24 11:15 09/26/24 17:41 25 MG objective General Appearance: Alert, Oriented X3, Cooperative HEENT: Atraumatic Lungs: Clear to auscultation Cardiovascular: Regular rate Abdomen: Non tense ascites, soft, umbilical hernia reducible Extremities: Minimal pedal edema laboratory and microbiology Laboratory Tests 09/26/24 06:03 Test 09/26/24 06:03 Range/Units Serum Glucose 87 74-106 mg/dL Problems(with codes): (1) Elevated liver enzymes (2) Splenomegaly (3) Ascites due to alcoholic cirrhosis (4) GI bleed (5) Gallstones (6) Alcohol withdrawal (7) Alcohol abuse (8) Liver cirrhosis (9) Ascites Prognosis Plan Continue supportive care Patient was counseled about discontinuing alcohol Patient states he drinks alcohol every night because of underlying insomnia to help him sleep Consider treatment with trazodone Continue diuretics and low-salt diet [place] discrimination function 28.2 points suggestive of good prognosis, patient does not appear to need steroids His MELD score is 19 points which is predictive of 6% three-month mortality Continue supportive care Physical therapy Discharge planning as per hospitalist Plan discussed with: Patient KATELYN JOYCE MD Sep 26, 2024 22:37
[2024-09-27 01:00] VITALS: BP 116/71; PULSE 93; RESP 19; TEMP 98.7; O2SAT 95
[2024-09-27 05:00] VITALS: BP 114/79; PULSE 106; RESP 19; TEMP 99.1; O2SAT 96
[2024-09-27 08:00] VITALS: PULSE 94; RESP 18; O2SAT 97
[2024-09-27 09:00] VITALS: BP 115/71; PULSE 94; RESP 18; TEMP 97.6; O2SAT 96
--- NOTE | 2024-09-27 11:34 | DVHDS2 ---
Discharge Summary Date of Admission Sep 22, 2024 at 07:42 Date of Discharge: Sep 27, 2024 Labs/Diagnostic Data: Laboratory Results Test 09/26/24 06:03 09/25/24 06:48 09/25/24 06:38 09/24/24 11:55 White Blood Count 5.2 10^3/uL (4.4-10.8) Red Blood Count 3.49 10^6/uL (4.5-5.90) Hemoglobin 8.4 g/dL (13.5-17.5) Hematocrit 26.6 % (41.0-53.0) Mean Corpuscular Volume 76.2 fL (80.0-100.0) Mean Corpuscular Hemoglobin 23.9 pg (28.0-32.0) Mean Corpuscular Hemoglobin Concent 31.4 g/dL (32.0-36.0) Red Cell Distribution Width 25.3 % (11.8-14.3) Platelet Count 53 10^3/uL (140-450) Mean Platelet Volume 8.2 fL (6.9-10.8) Neutrophils (%) (Auto) 74.3 % (37.0-80.0) Lymphocytes (%) (Auto) 9.9 % (10.0-50.0) Monocytes (%) (Auto) 11.8 % (0.0-12.0) Eosinophils (%) (Auto) 3.6 % (0.0-7.0) Basophils (%) (Auto) 0.4 % (0.0-2.0) Neutrophils # (Auto) 3.9 10 ^3/uL (1.6-8.6) Lymphocytes # (Auto) 0.5 10 ^3/uL (0.4-5.4) Monocytes # (Auto) 0.6 10 ^3/uL (0-1.3) Eosinophils # (Auto) 0.2 10 ^3/uL (0-0.8) Basophils # (Auto) 0 10 ^3/uL (0-0.2) Nucleated Red Blood Cells 0.1 % Sodium Level 135 mmol/L (136-145) Potassium Level 3.9 mmol/L (3.5-5.1) Chloride Level 103 mmol/L (98-107) Carbon Dioxide Level 26 mmol/L (20-31) Anion Gap 6 (5-15) Blood Urea Nitrogen 12 mg/dL (9-23) Creatinine 0.68 mg/dL (0.700-1.30) Glomerular Filtration Rate Calc 127 mL/min (>90) BUN/Creatinine Ratio 17.6 (10.0-20.0) Serum Glucose 87 mg/dL (74-106) Calcium Level 7.8 mg/dL (8.7-10.4) Total Bilirubin 6.6 mg/dL (0.2-1.0) Aspartate Amino Transferase (AST) 120 U/L (13-40) Alanine Aminotransferase (ALT) 28 U/L (7-40) Alkaline Phosphatase 180 U/L (46-116) Total Protein 5.8 g/dL (5.7-8.2) Albumin 2.5 g/dL (3.2-4.8) Platelet Estimate Decreased Hypochromasia (manual) Moderate Anisocytosis (manual) Moderate Microcytosis Slight Target Cells Few Phosphorus Level 3.0 mg/dL (2.4-5.1) Magnesium Level 1.9 mg/dL (1.6-2.6) Ammonia 22 umol/L (11-32) Urine Color Colorless (Yellow) Urine Clarity Clear (Clear) Urine pH 7.5 (5.0-9.0) Urine Specific [place] 1.005 (1.001-1.035) Urine Protein Trace (Negative) Urine Ketones Negative (Negative) Urine Blood 2+ /uL (Negative) Urine Nitrite Negative (Negative) Urine Bilirubin Negative (Negative) Urine Urobilinogen Normal mg/dL (Negative) Urine Leukocyte Esterase Negative /uL (Negative) Urine RBC 99 /hpf (0 - 3) Urine Microscopic WBC 2 /HPF (0-3) Urine Squamous Epithelial Cells None seen /hpf (<5) Urine Bacteria None seen /hpf (None Seen) Urine Glucose 1+ mg/dL (Normal) Body Fluid Source Peritoneal fluid Body Fluid pH 8.0 Body Fluid WBC (Manual) 136 CUMM (0-200) Body Fluid RBC (Manual) 740 CUMM (0-2000) Body Fluid Mononuclear Cells 93 % Body Fluid Polymorphonuclear Cells 7 % (0-25) Body Fluid Glucose 93 mg/dL (.) Body Fluid Total Protein 0.7 g/dL (.) Body Fluid Lactate Dehydrogenase 51 IU/L (.) Test 09/24/24 06:47 09/23/24 10:00 09/23/24 05:50 09/22/24 19:00 Prothrombin Time 15.8 sec (9.3-11.8) Prothrombin Time INR 1.56 (0.9-1.15) Vancomycin Level Trough 5.9 ug/mL (5-10) Stomatocytes Few B-Type Natriuretic Peptide 18.88 pg/mL (0-100) Urine Hyaline Casts Few /lpf (0 - 2) Urine Opiates Screen Pos (NEGATIVE) Urine Fentanyl Screen Neg (NEGATIVE) Urine Barbiturates Screen Neg (NEGATIVE) Urine Phencyclidine Screen Neg (NEGATIVE) Urine Amphetamines Screen Neg (NEGATIVE) Urine Benzodiazepines Screen Neg (NEGATIVE) Urine Cocaine Screen Neg (NEGATIVE) Urine Cannabinoids Screen Neg (NEGATIVE) Test 09/22/24 02:25 09/22/24 00:30 Lactic Acid Level 2.2 mmol/L (0.4-2.0) Lipase 59 U/L (12-53) Plasma/Serum Blood Alcohol 202.1 mg/dL (<10) Other Laboratory Tests 09/26/24 06:03 Brief Hx & Hospital Course: see dictated note Condition at Discharge: Guarded Final Diagnosis/Problems List liver cirrhosis Discharge Disposition: Home Discharge Instruct/Medications Diet: Cardiac 2g Na,low cholest Activity: No Restrictions, As Tolerated Follow Up/Referral: fu with pcp in 1 wk Medications: script to pharmacy Discharge Statement: "Patient was advised to return to the ER or call 911 if any headaches, dizziness, shortness of breath, chest pain, abdominal pain, bleeding, fevers, or worsening of medical condition. Patient was counseled about treatment plan, medications, possible side effects, patientverbalized understanding. All questions were answered to the best of my ability. This discharge took greater then 30 minutes in planning, reviewing documentation, counseling the patient, and discussing with other team members." ASSESSMENT ASSESSMENT Assessment liver cirrhosis Date of Service: Sep 27, 2024 Billing Provider: DHEERAJ MONTANO MD Common Visit Codes: 42711-YWG/OBS DISCH DAY >30min DHEERAJ MONTANO MD Sep 27, 2024 11:34
[2024-09-27] MEDS ORDERED: FURO1TAB31 PO (11:40)
[2024-09-27] MEDS ORDERED: MULT-351 PO (11:40)
[2024-09-27] MEDS ORDERED: SPIR100T PO (11:40)
[2024-09-27] MEDS ORDERED: METR-344 PO (11:40)
[2024-09-27] MEDS ORDERED: LEVO500T91 PO (11:40)
[2024-09-27] MEDS ORDERED: PANT40TA2 PO (11:40)
[2024-09-27] MEDS ORDERED: LACT10SO3 PO (11:40)
--- NOTE | 2024-09-27 11:49 | DVHDS ---
DATE OF DISCHARGE: 09/27/2024 HISTORY OF PRESENT ILLNESS: The patient is a 29-year-old gentleman who was admitted with complaint of abdominal pain, distention, cough and shortness of breath. He has history of alcoholic liver cirrhosis and ventral hernia. HOSPITAL COURSE: The patient had a CT of abdomen and pelvis that showed [id number] amount of ascites along with cholelithiasis and liver cirrhosis. The patient underwent paracentesis with removal of about 5 liters of fluid. The patient's ascitic fluid has so far been negative. The patient did had elevated temperature, for which he was placed on antibiotics. The patient will now be discharged home to be on Lasix 40 mg daily, Aldactone 100 mg daily, MVI 1 tablet daily, Protonix 40 mg daily, Levaquin 500 mg daily for 7 days, Flagyl 500 mg t.i.d. for 7 days and lactulose 30 mL b.i.d. He has been strongly counseled to stop alcohol abuse. FINAL DIAGNOSES: Therefore, * Liver cirrhosis with liver failure. * Alcohol abuse. * Pancytopenia due to hypersplenism. * Gallstones. * Ascites, status post paracentesis. * Umbilical hernia. * Likely sepsis with spontaneous bacterial peritonitis. Time spent in discharge planning and review of plan with the patient and nursing was 39 minutes. MD JARRED Thomas/XAVI TID: [id number] RECEIPT: [id number]
[2024-09-27 14:42] VITALS: BP 115/71; PULSE 91; RESP 18; TEMP 97.9; O2SAT 95
--- NOTE | 2024-09-27 19:13 | DVHPN2 ---
Progress Note - Dictate Date Seen: Sep 27, 2024 (Late entryPatient seen at 4:00 p.m.) Medical Necessity Reason Pt with a Central, PICC or Fol: No Subjective New complaints Patient is more awake and alert He has no abdominal distention He is tolerating diet There was no GI bleeding vital signs Vital Sign Date Time Temp Pulse Resp B/P (MAP) Pulse Ox O2 Delivery O2 Flow Rate FiO2 09/27/24 14:42 97.9 91 18 95 09/27/24 09:33 115/71 09/27/24 08:00 Room Air* 0 21 Total Intake and Output 09/26/24 09/26/24 09/27/24 15:00 23:00 07:00 Intake Total 150 ml 2200 ml 1190 ml Output Total 600 ml 650 ml Balance 150 ml 1600 ml 540 ml objective General Appearance: Alert, Oriented X3, Cooperative HEENT: Atraumatic Lungs: Clear to auscultation Cardiovascular: Regular rate Abdomen: Non tense ascites, soft, umbilical hernia reducible Extremities: Minimal pedal edema laboratory and microbiology Laboratory Tests 09/26/24 06:03 Test 09/26/24 06:03 Range/Units Serum Glucose 87 74-106 mg/dL Problems(with codes): (1) Elevated liver enzymes (2) Splenomegaly (3) Ascites due to alcoholic cirrhosis (4) GI bleed (5) Gallstones (6) Alcohol withdrawal (7) Alcohol abuse (8) Liver cirrhosis (9) Ascites Prognosis Plan Discharge planning is in progress Patient was counseled about discontinuing alcohol He can follow up with GI Services as an outpatient for ongoing monitoring of his chronic liver disease Low-dose diuretics, lactulose as needed Plan discussed with: Patient, Other (Nurse) KATELYN JOYCE MD Sep 27, 2024 19:13
== END 2024-09-27 16:15 | disposition home or self-care (01) | DRG 720 ==
LOC: ER 00:07 → TELE 07:42 → TELE-EAST 07:43 → EAST 09-25 20:17
PROVIDERS: ATTEND Internal Medicine
PROC: 0W9G3ZX Drainage of Peritoneal Cavity, Percutaneous Approach, Diagnostic (ICD-10-PCS; principal; 2024-09-24)
DX: A41.9 Sepsis, unspecified organism (principal); E87.20 Acidosis, unspecified; D61.818 Other pancytopenia; K70.40 Alcoholic hepatic failure without coma; D68.9 Coagulation defect, unspecified; K65.2 Spontaneous bacterial peritonitis; I27.20 Pulmonary hypertension, unspecified; K70.31 Alcoholic cirrhosis of liver with ascites; K80.20 Calculus of gallbladder without cholecystitis without obstruction; D64.9 Anemia, unspecified; F10.220 Alcohol dependence with intoxication, uncomplicated; D73.1 Hypersplenism; K42.9 Umbilical hernia without obstruction or gangrene; I10 Essential (primary) hypertension; K70.11 Alcoholic hepatitis with ascites; I86.4 Gastric varices; Z79.899 Other long term (current) drug therapy; Z82.49 Family history of ischemic heart disease and other diseases of the circulatory system; Y90.9 Presence of alcohol in blood, level not specified
CPT/HCPCS: 36415; 71045; 74177; 76705; 76942; 80053; 80202; 80307; 80320; 81001; 82140; 82565; 83605; 83690; 83735; 83880; 83986; 84100; 85014; 85018; 85025; 85610; 86850; 86900; 86901; 87040; 87205; 89051; 97163; 97530; 99291; G0378; J0692; J2405; J2470; J2543; J3430; J3490

== ENCOUNTER 2024-09-28 11:40 | Inpatient (IN) | payer MEDICAID ==
[~2024-09-28] VITALS: Ht 170.2 cm; Wt 86.0 kg
[~2024-09-28 11:40] MED LIST changes: +LACT10SO3 PO; +LEVO500T91 PO; +METR-344 PO; +MULT-351 PO; +PANT40TA2 PO; +SPIR100T PO
--- NOTE | 2024-09-28 12:06 | ED.PDOC ---
GI ASSESSMENT HPI Comments 29 y.o male with PMH of live cirrhosis, ascites, ETOH withdrawals, HTN and Seizures, presents to the ED for a chief complaint of generalized abdominal pain and distention associated with chills and weakness that presented 2 months ago. Patient describes pain as sharp, constant, and rating a 8/10 on the pain scale. Patient reports last alcoholic drink was 2 days ago. He denies any chest pain, SOB, nausea, vomiting, diarrhea, fever, dysuria, hematuria. Denies substance or tobacco use. Chief Complaint: Abdominal Pain Time Seen by MD: 11:58 Primary Care Provider: MIYA Reviewed Notes: Nurses Notes, Medications, Allergies Allergies: Coded Allergies: NO KNOWN ALLERGIES (Unverified , 01/27/21) Home Meds Active Scripts Multiple Vitamins W/ Minerals (Mvi W/ Minerals Tab) 1 Tab Tb, 1 TAB PO DAILY for 30 Days, #30 TAB Prov:DHEERAJ MONTANO MD 09/27/24 Metronidazole (Flagyl) 500 Mg Tab, 500 MG PO TID for 7 Days, #21 TAB Prov:DHEERAJ MONTANO MD 09/27/24 Levofloxacin Hemihydrate (LEVAQUIN 500 MG) 500 Mg Tab, 500 MG PO DAILY for 7 Days, #7 TAB Prov:DHEERAJ MONTANO MD 09/27/24 Lactulose (Lactulose) 10 Gm/15 Ml Karina, 10 GM PO BID for 30 Days, #120 ML 3 Refills Prov:DHEERAJ MONTANO MD 09/27/24 Spironolactone (Aldactone) 100 Mg Tab, 100 MG PO DAILY for 30 Days, #30 TAB 3 Refills Prov:DHEERAJ MONTANO MD 09/27/24 Furosemide (Lasix) 40 Mg Tab, 40 MG PO QAM for 30 Days, #30 TAB 3 Refills Prov:DHEERAJ MONTANO MD 09/27/24 Pantoprazole Sodium Sesquihydr (Protonix) 40 Mg Tab, 40 MG PO DAILY for 30 Days, #30 TAB 2 Refills Prov:DHEERAJ MONTANO MD 09/27/24 Chlordiazepoxide Hcl (Ni-1) (I (Librium) 10 Mg Cap, 10 MG PO Q6HR PRN for 10 Days, #30 CAP 0 Refills Prov:MARCELO GAFFNEY MD 07/21/24 Promethazine HCl (Promethegan) 25 Mg Sup, 25 MG HI Q6HPRN PRN for 10 Days, #20 SUPP Prov:MARCELO GAFFNEY MD 07/21/24 Spironolactone (Aldactone) 25 Mg Tab, 1 TAB PO DAILY for 30 Days, #30 TAB 5 Refills Prov:JO ELDER MD 11/20/23 Furosemide (Lasix) 40 Mg Tab, 40 MG PO DAILY for 30 Days, #30 TAB Prov:JO ELDER MD 11/20/23 Reported Medications Furosemide (Furosemide) 40 Mg Tab, 40 MG PO DAILY for 30 Days 11/19/23 Ferrous Sulfate (FERROUS SULFATE) 324 Mg Tab, 324 MG PO DAILY, TAB 11/19/23 Calcium Carbonate (Calcium Carbonate) 500 Mg Chw, 500 MG PO DAILY, TAB.CHEW 11/19/23 Information Source: Patient Mode of Arrival: Ambulatory Timing: Months (2) Duration: Since onset Quality: Aching Vomitus: None Stool: Normal Severity: Moderate Recent: Ingestion of ETOH Recent Hx of: None Pain Location: None Modifying Factors: Nothing Associated sign and symptoms: Abdominal Pain Past Medical History PAST MEDICAL HISTORY: HTN, Liver, Seizures Past Medical History (Other): ascites Surgical History: Hernia Repair Surgical History (Other): Bone marrow Family History Family History: Family hx of Cancer Social History Smoker: Non-Smoker Alcohol: Heavy Drugs: Denies Drug Use Lives In: Home Constitutional: reports: chills, malaise, weakness; denies: diaphoresis, fatigue, fever, sweats, others EENTM: denies: blurred vision, double vision, ear bleeding, ear discharge, ear drainage, ear pain, ear ringing, eye pain, eye redness, hearing loss, mouth pain, mouth swelling, nasal discharge, nose bleeding, nose congestion, nose pain , photophobia, tearing, throat pain, throat swelling, voice changes, others Respiratory: denies: cough, hemoptysis, orthopnea, SOB at rest, shortness of breath, SOB with excertion, stridor, wheezing, others Cardiovascular: denies: chest pain, dizzy spells, diaphoresis, Dyspnea on exertion, edema, irregular heart beat, left arm pain, lightheadedness, palpitations, PND, syncope, others Gastrointestinal: reports: abdomen distended, abdominal pain; denies: blood streaked bowels, constipated, diarrhea, dysphagia, difficulty swallowing, hematemesis, melena, nausea, poor appetite, poor fluid intake, rectal bleeding, rectal pain, vomiting, others Genitourinary: denies: burning, dysuria, flank pain, frequency, hematuria, incontinence, penile discharge, penile sore, pain, testicle pain, testicle swelling, urgency, others Neurological: denies: dizziness, fainting, headache, left sided numbness, left sided weakness, numbness, paresthesia, pre-existing deficit, right sided numbness, right sided weakness, seizure, speech problems, tingling, tremors, weakness, others Musculoskeletal: denies: back pain, gout, joint pain, joint swelling, muscle pain, muscle stiffness, neck pain, others Integumetry: denies: bruises, change in color, change in hair/nails, dryness, laceration, lesions, lumps, rash, wounds, others Allergic/Immunocompromised: denies: Difficulty Healing, Frequent Infections, Hives, Itching, others Hematologic/Lymphatic: denies: anemia, blood clots, easy bleeding, easy bruising, swollen glands, others Endocrine: denies: excessive hunger, excessive sweating, excessive thirst, excessive urination, flushing, intolerance to cold, intolerance to heat, unexplained weight gain, unexplained weight loss, others Psychiatric: denies: anxiety, bipolar disorder, depression, hopeless, panic disorder, schizophrenia, sleepless, suicidal, others All Other Systems: Reviewed and Negative Physical Exam General Appearance: Moderate Distress HEENT: Pale Conjuntivae (L), Pale Conjuntivae (R), Pharynx Normal, TMs Normal Neck: Full Range of Motion, Non-Tender, Normal, Normal Inspection Respiratory: Chest Non-Tender, Lungs Clear, No Accessory Muscle Use, No Respiratory Distress, Normal Breath Sounds Cardiovascular: No Edema, No JVD, No Murmur, No Gallop, Normal Peripheral Pulses, Regular Rate/Rhythm Breast Exam: Deferred Gastrointestinal: Distended, Hepatomegaly Genitalia: Deferred Pelvic: Deferred Rectal: Deferred Extremities: No calf tenderness, Normal capillary refill, Pedal edema Musculoskeletal : Apperance: Normal Neurologic: lpn medical assistant II-XII nml as Tested, Motor Weakness, Normal Affect, Normal Mood, No Sensory Deficits, Other (Some lethargy) Cerebellar Function: Normal Reflexes: Normal Skin: Dry, Pallor, Warm Lymphatic: No Adenopathy Was a procedure done? Was a procedure done?: No GI differential Dx Differential Diagnosis: Gastroenteritis, Hepatitis, Inflammatory BD, Pancreatitis, Dehydration, Electrolyte Imbalance, Food Poisoning, Bacterial, Parasitic, Viral, Malnutrition X-Ray, Labs, Meds, VS Vital Signs Date Time Temp Pulse Resp B/P (MAP) Pulse Ox O2 Delivery O2 Flow Rate FiO2 09/28/24 12:25 Room Air* 0 21 09/28/24 12:08 98.3 100 18 122/83 (96) 100 Lab Test 09/28/24 13:29 Range/Units White Blood Count 5.9 4.4-10.8 10^3/uL Red Blood Count 3.42 L 4.5-5.90 10^6/uL Hemoglobin 8.0 L 13.5-17.5 g/dL Hematocrit 26.3 L 41.0-53.0 % Mean Corpuscular Volume 76.9 L 80.0-100.0 fL Mean Corpuscular Hemoglobin 23.5 L 28.0-32.0 pg Mean Corpuscular Hemoglobin Concent 30.5 L 32.0-36.0 g/dL Red Cell Distribution Width 25.9 H 11.8-14.3 % Platelet Count 63 L 140-450 10^3/uL Mean Platelet Volume 8.9 6.9-10.8 fL Neutrophils (%) (Auto) 75.1 37.0-80.0 % Lymphocytes (%) (Auto) 8.3 L 10.0-50.0 % Monocytes (%) (Auto) 10.7 0.0-12.0 % Eosinophils (%) (Auto) 5.6 0.0-7.0 % Basophils (%) (Auto) 0.3 0.0-2.0 % Neutrophils # (Auto) 4.4 1.6-8.6 10 ^3/uL Lymphocytes # (Auto) 0.5 0.4-5.4 10 ^3/uL Monocytes # (Auto) 0.6 0-1.3 10 ^3/uL Eosinophils # (Auto) 0.3 0-0.8 10 ^3/uL Basophils # (Auto) 0 0-0.2 10 ^3/uL Nucleated Red Blood Cells 0.0 % Prothrombin Time 17.7 H 9.3-11.8 sec Prothrombin Time INR 1.77 H 0.9-1.15 Activated Partial Thromboplast Time 39.3 H 24.5-34.5 SEC Sodium Level 137 136-145 mmol/L Potassium Level 4.2 3.5-5.1 mmol/L Chloride Level 106 98-107 mmol/L Carbon Dioxide Level 27 20-31 mmol/L Anion Gap 4 L 5-15 Blood Urea Nitrogen 16 9-23 mg/dL Creatinine 0.73 0.700-1.30 mg/dL Glomerular Filtration Rate Calc 125 >90 mL/min BUN/Creatinine Ratio 21.9 H 10.0-20.0 Serum Glucose 104 74-106 mg/dL Calcium Level 7.5 L 8.7-10.4 mg/dL Total Bilirubin 7.0 H 0.2-1.0 mg/dL Aspartate Amino Transferase (AST) 86 H 13-40 U/L Alanine Aminotransferase (ALT) 28 7-40 U/L Alkaline Phosphatase 183 H 46-116 U/L Ammonia 16 11-32 umol/L Total Protein 5.6 L 5.7-8.2 g/dL Albumin 2.4 L 3.2-4.8 g/dL The patient had an ultrasound done yesterday The patient's CBC shows anemia with a hemoglobin of 8 and hematocrit of 26.3 The ammonia level is 16 The patient was being admitted to the hospitalist The patient is normotensive An IV Hep-Lock was established Time of 1ST Reevaluation: 12:01 Reevaluation 1ST: Unchanged Patient Education/Counseling: Diagnosis, Treatment, Prognosis Family Education/Counseling: No Family Present Departure 1 Departure Time of Disposition: 14:34 Impression: Primary Impression: Intractable abdominal pain Additional Impression: Liver cirrhosis Qualified Codes: K70.31 - Alcoholic cirrhosis of liver with ascites Disposition: ADMITTED INPATIENT Admit to: Med Surg Condition: Fair Critical Care Note Critical Care Time?: No Stability Stability form required: Yes Unstable for transfer: ED Physician Assesment (Clinical assesment) I personally scribed for TATA VIDAL MD ([email or web address]) on 09/28/24 at 12:06. Electronically submitted by Nadia Garrison ([facility]). TTAA VIDAL MD Sep 28, 2024 12:06
[2024-09-28 13:47] LABS: Basophils # (auto) 0 10 ^3/uL (0-0.2); Eosinophils # (auto) 0.3 10 ^3/uL (0-0.8); Mean Corpuscular Hemoglobin 23.5 pg (28.0-32.0); Monocytes # (auto) 0.6 10 ^3/uL (0-1.3); Platelet Count (auto) 63 10^3/uL (140-450)
[2024-09-28 13:49] LABS: Basophils % (auto) 0.3 % (0.0-2.0); Eosinophils % (auto) 5.6 % (0.0-7.0); Hematocrit 26.3 % (41.0-53.0); Lymphocytes # (auto) 0.5 10 ^3/uL (0.4-5.4); Lymphocytes % (auto) 8.3 % (10.0-50.0); Mean Corpuscular Hgb Conc. 30.5 g/dL (32.0-36.0); Mean Corpuscular Volume 76.9 fL (80.0-100.0); Monocytes % (auto) 10.7 % (0.0-12.0); Neutrophils # (auto) 4.4 10 ^3/uL (1.6-8.6); Neutrophils % (auto) 75.1 % (37.0-80.0); Red Blood Cells 3.42 10^6/uL (4.5-5.90); White Blood Cell 5.9 10^3/uL (4.4-10.8)
[2024-09-28 13:53] LABS: Red Cell Distribution Width 25.9 % (11.8-14.3)
[2024-09-28 13:59] LABS: Alanine Aminotransferase 28 U/L (7-40); Anion Gap 4 (5-15); BUN/Creatinine Ratio 21.9 (10.0-20.0); Blood Urea Nitrogen 16 mg/dL (9-23); Carbon Dioxide 27 mmol/L (20-31); Chloride 106 mmol/L (98-107); Glucose 104 mg/dL (74-106); Potassium 4.2 mmol/L (3.5-5.1); Sodium 137 mmol/L (136-145)
[2024-09-28 14:01] LABS: INR 1.77 (0.9-1.15); Partial Thromboplastin Time 39.3 SEC (24.5-34.5); Prothrombin Time 17.7 sec (9.3-11.8)
[2024-09-28 14:03] LABS: Albumin 2.4 g/dL (3.2-4.8); Alkaline Phosphatase 183 U/L (46-116); Aspartate Aminotransferase 86 U/L (13-40); Calcium 7.5 mg/dL (8.7-10.4); Total Protein 5.6 g/dL (5.7-8.2)
[2024-09-28 14:37] LABS: Anisocytosis Moderate; Hypochromia Moderate; Platelet Estimate Decreased
[2024-09-28 14:38] LABS: Target Cell FEW
[2024-09-28] MEDS ORDERED: ONDANSETRON HCL 4 MG/2 ML VIAL IV PRN (16:45)
[2024-09-28] MEDS ORDERED: ACETAMINOPHEN 325 MG TAB PO PRN (16:45)
[2024-09-28] MEDS ORDERED: VANCOMYCIN PER PHARMACY 0 MG IV SCH (17:00)
--- NOTE | 2024-09-28 17:08 | DVHHP2 ---
History of Present Illness Reason for Visit: Abdominal pain History of Present Illness Yuriy Nunez is a 29-year-old male with past medical history of hypertension, liver cirrhosis, ascites, ETOH withdrawal, seizures, hernia, EGD and multiple paracentesis who presents to the ED for abdominal pain, chills, and weakness 04/07. Patient uncooperative. Patient does report that he still drinks 36 packs of beer per day. Patient denies any chest pain, shortness of breath, fever, lightheadedness, dizziness, recent sick contacts, nausea, vomiting, and diarrhea. Patient reports no current seizures, tremors, hallucinations, visual disturbances, auditory disturbances, and anxiety. 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 Hepatobiliary: Cirrhosis, Other (Ascites) Past Medical History ETOH withdrawal Hernia Past Surgical History: Other (Paracentesis and EGD) Family History: Hypertension, Other (Mom hypertension and dad hypertension and prostatectomy) Smoke: Quit ALCOHOL: heavy Drugs: None Lives: with Family Domestic Violence: Neg Review of Systems Constitutional: Yes: Chills, Weakness; No: Fever, Sweats, Malaise, Other Eyes: No: Pain, Vision change, Conjunctivae inflammation, Eyelid inflammation, Other, Redness ENT: No: Ear pain, Ear discharge, Nose pain, Nose discharge, Nose congestion, Mouth pain, Mouth swelling, Throat pain, Throat swelling, Other Respiratory: No: Cough, Dry, Shortness of breath, SOB with excertion, Wheezing, Hemoptysis, Pleuritic Pain, Sputum, Wheezing, Other Cardiovascular: No: Chest Pain, Palpitations, Orthopnea, Paroxysmal Noc. Dyspnea, Edema, Lt Headedness, Other Gastrointestinal: Abdominal Pain, Other (Abdominal distention) Genitourinary: No Dysuria, No Frequency, No Incontinence, No Hematuria, No Retention, No Other Musculoskeletal: No: other, neck pain, shoulder pain, arm pain, back pain, hand pain, leg pain, foot pain Neurological: No: Weakness, Numbness, Incoordination, Change in speech, Confusion, Seizures, Other Allergies: Coded Allergies: NO KNOWN ALLERGIES (Unverified , 01/27/21) Exam Vital Signs Vital Signs Date Time Temp Pulse Resp B/P (MAP) Pulse Ox O2 Delivery O2 Flow Rate FiO2 09/28/24 15:00 88 17 110/73 (85) 96 09/28/24 12:25 Room Air* 0 21 09/28/24 12:08 98.3 General Appearance: Alert, Oriented X3, No acute distress HEENT: Atraumatic, PERRLA, EOMI, Mucous membr. moist/pink Respiratory: Normal air movement Cardiovascular: Normal S1, Normal S2, No murmurs Neuro: Normal speech, Normal tone, Sensation intact Psych/Mental Status: Mental status NL, Mood NL Labs/Xrays Labs Test 09/28/24 13:29 Range/Units White Blood Count 5.9 4.4-10.8 10^3/uL Red Blood Count 3.42 L 4.5-5.90 10^6/uL Hemoglobin 8.0 L 13.5-17.5 g/dL Hematocrit 26.3 L 41.0-53.0 % Mean Corpuscular Volume 76.9 L 80.0-100.0 fL Mean Corpuscular Hemoglobin 23.5 L 28.0-32.0 pg Mean Corpuscular Hemoglobin Concent 30.5 L 32.0-36.0 g/dL Red Cell Distribution Width 25.9 H 11.8-14.3 % Platelet Count 63 L 140-450 10^3/uL Mean Platelet Volume 8.9 6.9-10.8 fL Neutrophils (%) (Auto) 75.1 37.0-80.0 % Lymphocytes (%) (Auto) 8.3 L 10.0-50.0 % Monocytes (%) (Auto) 10.7 0.0-12.0 % Eosinophils (%) (Auto) 5.6 0.0-7.0 % Basophils (%) (Auto) 0.3 0.0-2.0 % Neutrophils # (Auto) 4.4 1.6-8.6 10 ^3/uL Lymphocytes # (Auto) 0.5 0.4-5.4 10 ^3/uL Monocytes # (Auto) 0.6 0-1.3 10 ^3/uL Eosinophils # (Auto) 0.3 0-0.8 10 ^3/uL Basophils # (Auto) 0 0-0.2 10 ^3/uL Nucleated Red Blood Cells 0.0 % Platelet Estimate Decreased Hypochromasia (manual) Moderate Anisocytosis (manual) Moderate Microcytosis Slight Target Cells Few Prothrombin Time 17.7 H 9.3-11.8 sec Prothrombin Time INR 1.77 H 0.9-1.15 Activated Partial Thromboplast Time 39.3 H 24.5-34.5 SEC Sodium Level 137 136-145 mmol/L Potassium Level 4.2 3.5-5.1 mmol/L Chloride Level 106 98-107 mmol/L Carbon Dioxide Level 27 20-31 mmol/L Anion Gap 4 L 5-15 Blood Urea Nitrogen 16 9-23 mg/dL Creatinine 0.73 0.700-1.30 mg/dL Glomerular Filtration Rate Calc 125 >90 mL/min BUN/Creatinine Ratio 21.9 H 10.0-20.0 Serum Glucose 104 74-106 mg/dL Calcium Level 7.5 L 8.7-10.4 mg/dL Total Bilirubin 7.0 H 0.2-1.0 mg/dL Aspartate Amino Transferase (AST) 86 H 13-40 U/L Alanine Aminotransferase (ALT) 28 7-40 U/L Alkaline Phosphatase 183 H 46-116 U/L Ammonia 16 11-32 umol/L Total Protein 5.6 L 5.7-8.2 g/dL Albumin 2.4 L 3.2-4.8 g/dL Assessment/Plan Assessment/Plan Assessment/Plan: Alcoholic Liver cirrhosis with ascites Thrombocytopenia Anemia Rule out sepsis Anemia Hyperbilirubinemia Labs RBC morphology Ammonia PT/PTT CT abdomen and pelvis Radiology consult for paracentesis Type and screen Lactic Lipase Antiemetics Pain management A.m. labs UA UDS Librium IV antibiotics-vancomycin + zosyn Blood alcohol level CIWA Thiamine Folic acid Multivitamins Ativan Diurese-Lasix and spironolactone MELD score 20 points with 19.6% estimated 3 month mortality Chronic hypertension Continue home medications ETOH abuse Counseled patient on cessation of EtOH FEN/PPX diet Hep-Lock DVT ppx - hold ac d/t thrombocytopenia PUD PPX -Protonix Admit patient to tele Discussed plan of care with patient and nurse Home meds reconciled Plan discussed with: Patient My Orders Orders - ARMAND BENJAMIN Procedure Category Date Status Time * Radiologist Consult CONS 09/28/24 Transmitted 16:43 Type And Screen BBK 09/28/24 Transmitted 16:43 Ct Ab Pel Wo Con-No CT 09/28/24 Transmitted Oral Or Iv 16:43 Admit ADMIT 09/28/24 Transmitted 16:43 Allergies ARACELY 09/28/24 Transmitted 16:43 Code Status CODE 09/28/24 Transmitted 16:43 2 Gm Sodium Diet DIET 09/28/24 Transmitted Dinner Hydrocodone-Acet PHA 09/28/24 Transmitted 5/325mg Tab ([place] 16:45 Ondansetron Hcl PHA 09/28/24 Transmitted (Zofran) 16:45 Complete Blood Count LAB 09/29/24 Verified 04:00 Comprehensive LAB 09/29/24 Verified Metabolic Panel 04:00 Acetaminophen Tablet PHA 09/28/24 Transmitted (Tylenol Tablet) 16:45 Date of Service: Sep 28, 2024 Billing Provider: ARMAND BENJAMIN Common Visit Codes: 88027-[id number] INP/OBS CARE (HIGH) ARMAND BENJAMIN Sep 28, 2024 17:07
--- NOTE | 2024-09-28 17:09 | DVHHP2 ---
Admitting Diagnosis: Abdominal pain History of Present Illness 29 y.o male with PMH of live cirrhosis, ascites, ETOH withdrawals, HTN and Seizures, presents to the ED for a chief complaint of generalized abdominal pain and distention associated with chills and weakness that presented 2 months ago. Patient describes pain as sharp, constant, and rating a 8/10 on the pain scale. Patient reports last alcoholic drink was 2 days ago. He denies any chest pain, SOB, nausea, vomiting, diarrhea, fever, dysuria, hematuria. Denies substance or tobacco use. PAST MEDICAL HISTORY: HTN, Liver, Seizures Past Medical History (Other): ascites Surgical History: Hernia Repair Surgical History (Other): Bone marrow Family History Family History: Family hx of Cancer Social History Smoker: Non-Smoker Alcohol: Heavy Drugs: Denies Drug Use Lives In: Home Patient Family History: Cirrhosis of liver G8 MOTHER Colon cancer G8 FATHER FH: prostate cancer G8 FATHER Hypertension G8 MOTHER G8 FATHER Allergies: Coded Allergies: NO KNOWN ALLERGIES (Unverified , 01/27/21) Home Meds Active Scripts Multiple Vitamins W/ Minerals (Mvi W/ Minerals Tab) 1 Tab Tb, 1 TAB PO DAILY for 30 Days, #30 TAB Prov:DHEERAJ MONTANO MD 09/27/24 Metronidazole (Flagyl) 500 Mg Tab, 500 MG PO TID for 7 Days, #21 TAB Prov:DHEERAJ MONTANO MD 09/27/24 Levofloxacin Hemihydrate (LEVAQUIN 500 MG) 500 Mg Tab, 500 MG PO DAILY for 7 Days, #7 TAB Prov:DHEERAJ MONTANO MD 09/27/24 Lactulose (Lactulose) 10 Gm/15 Ml Karina, 10 GM PO BID for 30 Days, #120 ML 3 Refills Prov:DHEERAJ MONTANO MD 09/27/24 Spironolactone (Aldactone) 100 Mg Tab, 100 MG PO DAILY for 30 Days, #30 TAB 3 Refills Prov:DHEERAJ MONTANO MD 09/27/24 Furosemide (Lasix) 40 Mg Tab, 40 MG PO QAM for 30 Days, #30 TAB 3 Refills Prov:DHEERAJ MONTANO MD 09/27/24 Pantoprazole Sodium Sesquihydr (Protonix) 40 Mg Tab, 40 MG PO DAILY for 30 Days, #30 TAB 2 Refills Prov:DHEERAJ MONTNAO MD 09/27/24 Chlordiazepoxide Hcl (Ni-1) (I (Librium) 10 Mg Cap, 10 MG PO Q6HR PRN for 10 Days, #30 CAP 0 Refills Prov:MARCELO GAFFNEY MD 07/21/24 Promethazine HCl (Promethegan) 25 Mg Sup, 25 MG UT Q6HPRN PRN for 10 Days, #20 SUPP Prov:MARCELO GAFFNEY MD 07/21/24 Spironolactone (Aldactone) 25 Mg Tab, 1 TAB PO DAILY for 30 Days, #30 TAB 5 Refills Prov:JO ELDER MD 11/20/23 Furosemide (Lasix) 40 Mg Tab, 40 MG PO DAILY for 30 Days, #30 TAB Prov:JO ELDER MD 11/20/23 Reported Medications Furosemide (Furosemide) 40 Mg Tab, 40 MG PO DAILY for 30 Days 11/19/23 Ferrous Sulfate (FERROUS SULFATE) 324 Mg Tab, 324 MG PO DAILY, TAB 11/19/23 Calcium Carbonate (Calcium Carbonate) 500 Mg Chw, 500 MG PO DAILY, TAB.CHEW 11/19/23 Vital Signs Vital Signs Date Time Temp Pulse Resp B/P (MAP) Pulse Ox O2 Delivery O2 Flow Rate FiO2 09/28/24 15:00 88 17 110/73 (85) 96 09/28/24 12:25 Room Air* 0 21 09/28/24 12:08 98.3 Physical Exam 29 years old male, nourished well developed. mild distress HEENT atraumatic, normocephalic Heart-regular rate and rhythm Lungs clear to auscultate Abdomen soft, distended, mild tender Musculoskeletal-positive edema, no cyanosis Neuro-AO x3, no focal deficits Results Labs Test 09/28/24 13:29 Range/Units White Blood Count 5.9 4.4-10.8 10^3/uL Red Blood Count 3.42 L 4.5-5.90 10^6/uL Hemoglobin 8.0 L 13.5-17.5 g/dL Hematocrit 26.3 L 41.0-53.0 % Mean Corpuscular Volume 76.9 L 80.0-100.0 fL Mean Corpuscular Hemoglobin 23.5 L 28.0-32.0 pg Mean Corpuscular Hemoglobin Concent 30.5 L 32.0-36.0 g/dL Red Cell Distribution Width 25.9 H 11.8-14.3 % Platelet Count 63 L 140-450 10^3/uL Mean Platelet Volume 8.9 6.9-10.8 fL Neutrophils (%) (Auto) 75.1 37.0-80.0 % Lymphocytes (%) (Auto) 8.3 L 10.0-50.0 % Monocytes (%) (Auto) 10.7 0.0-12.0 % Eosinophils (%) (Auto) 5.6 0.0-7.0 % Basophils (%) (Auto) 0.3 0.0-2.0 % Neutrophils # (Auto) 4.4 1.6-8.6 10 ^3/uL Lymphocytes # (Auto) 0.5 0.4-5.4 10 ^3/uL Monocytes # (Auto) 0.6 0-1.3 10 ^3/uL Eosinophils # (Auto) 0.3 0-0.8 10 ^3/uL Basophils # (Auto) 0 0-0.2 10 ^3/uL Nucleated Red Blood Cells 0.0 % Platelet Estimate Decreased Hypochromasia (manual) Moderate Anisocytosis (manual) Moderate Microcytosis Slight Target Cells Few Prothrombin Time 17.7 H 9.3-11.8 sec Prothrombin Time INR 1.77 H 0.9-1.15 Activated Partial Thromboplast Time 39.3 H 24.5-34.5 SEC Sodium Level 137 136-145 mmol/L Potassium Level 4.2 3.5-5.1 mmol/L Chloride Level 106 98-107 mmol/L Carbon Dioxide Level 27 20-31 mmol/L Anion Gap 4 L 5-15 Blood Urea Nitrogen 16 9-23 mg/dL Creatinine 0.73 0.700-1.30 mg/dL Glomerular Filtration Rate Calc 125 >90 mL/min BUN/Creatinine Ratio 21.9 H 10.0-20.0 Serum Glucose 104 74-106 mg/dL Calcium Level 7.5 L 8.7-10.4 mg/dL Total Bilirubin 7.0 H 0.2-1.0 mg/dL Aspartate Amino Transferase (AST) 86 H 13-40 U/L Alanine Aminotransferase (ALT) 28 7-40 U/L Alkaline Phosphatase 183 H 46-116 U/L Ammonia 16 11-32 umol/L Total Protein 5.6 L 5.7-8.2 g/dL Albumin 2.4 L 3.2-4.8 g/dL Primary Diagnosis Abdominal pain due to ascites Liver cirrhosis due to alcohol use supratherapeutic inr Plan Last use of alcohol today. Patient says that he has ascites and engaging frequently. Paracentesis ordered Ceftriaxone 1 g for possible SBP F/u with culture and cell count INR 1.7. Given vit k 10 mg NPO for now. Resume regular diet after paracentesis Resume home medications Monitor for alcohol withdrawal IV antiemetic IV pain control switch to oral troponin centesis Full code SCD for DVT prophylaxis NPO for now. Resume regular diet after paracentesis PPI for GI prophylaxis Plan discussed with: Patient Problems List: (1) Ascites due to alcoholic cirrhosis Status: Acute (2) Pancytopenia (3) Anemia, unspecified (4) Liver cirrhosis Status: Acute Date of Service: Sep 28, 2024 Billing Provider: DEAN ALCARAZ MD Common Visit Codes: [id number] INP/OBS CARE (MOD) DEAN ALCARAZ MD Sep 28, 2024 17:09
[2024-09-28] MEDS: SPIRONOLACTONE 25 MG TAB PO SCH (18:01)
[2024-09-28] MEDS: THIAMINE HCL 100 MG TAB PO ONE (18:01)
[2024-09-28] MEDS: MULTIPLE VITAMIN TAB PO ONE (18:01)
[2024-09-28] MEDS: FOLIC ACID 1 MG TAB PO ONE (18:01)
[2024-09-28] MEDS: FUROSEMIDE 40 MG/4 ML VIAL IV SCH (18:02)
[2024-09-28] MEDS: LORazepam 0.5 MG TAB PO SCH (18:02)
[2024-09-28] MEDS: HYDROcodone-ACET 5/325MG TAB PO PRN (18:12)
[2024-09-28] MEDS: PIPERACILLIN-TAZOB 3.375GM 100 ML IV ONE (18:13)
[2024-09-28] MEDS: PHYTONADIONE(VitK) ORAL Susp 10mg/10ml(1mg/ml) PO ONE (19:02)
[2024-09-29] VITALS (9 sets, daily range): BP systolic 98–115; BP diastolic 61–69; PULSE 67–92; RESP 12–20; TEMP 97.7–98.6; O2SAT 95–100
--- NOTE | 2024-09-29 00:20 | DVH ---
CLINICAL HISTORY: abd pain and distension TECHNIQUE: CT of the abdomen and pelvis was performed without intravenous contrast. This exam was per formed according to our departmental dose optimization program. Up-to-date CT equipment and radiation dose reduction techniques are utilized as appropriate. COMPARISON: CT CT AB PEL WO CON-NO ORAL OR IV on DOS: 12/13/23 FINDINGS: Lower Thorax: Clustered nodular opacities in the left upper lobe. Normal-sized heart. There is mild f luid distention of the lower esophagus. Hypodensity of the blood pool relative to the myocardium serjio cative of anemia. Liver and Biliary system: There is cirrhosis of the liver. No definite hepatic lesion. Cholelithiasis . Mild gallbladder wall thickening. No biliary ductal dilatation. Portosystemic collateral vessels. Spleen: Splenomegaly. Adrenal Glands and Kidneys: Normal adrenal glands. No hydronephrosis or nephrolithiasis. Pancreas and Retroperitoneum: Mildly atrophic pancreas. No pathologically enlarged retroperitoneal ly mph nodes. Aorta and Major Vessels: Aortoiliac vessels are normal in caliber. Bowel, Mesentery and Peritoneal space: Normal appendix. Normal caliber small and large bowel. Moderat e ascites and mesenteric venous congestion. There is a nonobstructed segment of mid small bowel cours ing into an umbilical hernia. No free air or loculated fluid collection. Pelvis: Unremarkable. Abdominal wall and Osseous Structures: Mild body wall edema. No destructive osseous lesion. There is an umbilical hernia containing ascites and nonobstructed segment of small bowel IMPRESSION: 1. Small umbilical hernia containing a nonobstructed segment of mid small bowel and ascites. 2. Clustered nodular opacities in the left upper lobe likely atypical infection. 3. Cirrhosis and portal hypertension with moderate ascites, splenomegaly, portosystemic collateral ve ssels. 4. Anemia suggested. Correlate with CBC. 5. Cholelithiasis.
[2024-09-29] MEDS ORDERED: PIPERACILLIN-TAZOB 3.375GM 100 ML IV SCH (01:00)
[2024-09-29] MEDS ORDERED: VANCOMYCIN 1.25gm/250mL PREMIX or KIT IV SCH (02:00)
[2024-09-29] MEDS: VANCOMYCIN 1.25gm/250mL PREMIX or KIT IV SCH (06:51)
[2024-09-29 07:49] LABS: Basophils # (auto) 0 10 ^3/uL (0-0.2); Basophils % (auto) 0.2 % (0.0-2.0); Eosinophils # (auto) 0.3 10 ^3/uL (0-0.8); Eosinophils % (auto) 5.1 % (0.0-7.0); Hematocrit 29.7 % (41.0-53.0); Hemoglobin 9.3 g/dL (13.5-17.5); Lymphocytes # (auto) 0.6 10 ^3/uL (0.4-5.4); Mean Corpuscular Hemoglobin 24.2 pg (28.0-32.0); Mean Corpuscular Hgb Conc. 31.3 g/dL (32.0-36.0); Mean Corpuscular Volume 77.4 fL (80.0-100.0); Monocytes # (auto) 0.3 10 ^3/uL (0-1.3); Neutrophils # (auto) 5.6 10 ^3/uL (1.6-8.6); Neutrophils % (auto) 81.7 % (37.0-80.0); Nucleated Red Blood Cells % 0.1 %; Platelet Count (auto) 85 10^3/uL (140-450); Red Blood Cells 3.83 10^6/uL (4.5-5.90); Red Cell Distribution Width 25.9 % (11.8-14.3); White Blood Cell 6.8 10^3/uL (4.4-10.8)
[2024-09-29 08:10] LABS: Alanine Aminotransferase 28 U/L (7-40); Anion Gap 6 (5-15); BUN/Creatinine Ratio 17.3 (10.0-20.0); Blood Urea Nitrogen 18 mg/dL (9-23); Carbon Dioxide 27 mmol/L (20-31); Chloride 102 mmol/L (98-107); Glucose 100 mg/dL (74-106); Potassium 4.3 mmol/L (3.5-5.1)
[2024-09-29 08:11] LABS: Total Protein 6.7 g/dL (5.7-8.2)
[2024-09-29 08:18] LABS: Albumin 2.7 g/dL (3.2-4.8); Alkaline Phosphatase 202 U/L (46-116); Aspartate Aminotransferase 96 U/L (13-40); Bilirubin, Total 8.6 mg/dL (0.2-1.0); Sodium 135 mmol/L (136-145)
[2024-09-29] MEDS: THIAMINE HCL 100 MG TAB PO SCH (09:39)
[2024-09-29] MEDS: PANTOPRAZOLE 40 MG/10 ML VIAL INJ IV SCH (09:39)
[2024-09-29] MEDS: PIPERACILLIN-TAZOB 3.375GM 100 ML IV SCH (09:39)
[2024-09-29] MEDS: FOLIC ACID 1 MG TAB PO SCH (09:39)
[2024-09-29] MEDS: MULTIPLE VITAMIN TAB PO SCH (09:40)
--- NOTE | 2024-09-29 11:57 | DVHPN2 ---
Reviewed: Care Plan, H&P, Labs, Medications, Previous Orders, Radiology Changes from previous H/P or p: No Changes Eyes: No Pain, No Vision change, No Conjunctivae inflammation, No Eyelid inflammation, No Other, No Redness ENT: No Ear pain, No Ear discharge, No Nose pain, No Nose discharge, No Nose congestion, No Mouth pain, No Mouth swelling, No Throat pain, No Throat swelling, No Other Cardiovascular: No Chest Pain, No Palpitations, No Orthopnea, No Paroxysmal Noc. Dyspnea, No Edema, No Lt Headedness, No Other Respiratory: No Cough, No Dry, No Shortness of breath, No SOB with excertion, No Wheezing, No Hemoptysis, No Pleuritic Pain, No Sputum, No Other Gastrointestinal: Abdominal Pain, Other Genitourinary: No Dysuria, No Frequency, No Incontinence, No Hematuria, No Retention, No Other Musculoskeletal: No other, No neck pain, No shoulder pain, No arm pain, No back pain, No hand pain, No leg pain, No foot pain Objective Vitals Vital Signs Date Time Temp Pulse Resp B/P (MAP) Pulse Ox O2 Delivery O2 Flow Rate FiO2 09/29/24 09:01 98.2 84 20 110/64 (79) 96 98.2 09/29/24 08:00 Room Air* 0 21 Intake/Output Intake and Output 09/29/24 07:00 Intake Total 500 ml Balance 500 ml Intake Oral 400 ml IV Total 100 ml # Voids 2 Medications Current Medications Medications Dose Ordered Sig/Gretchen Route Start Time Stop Time Status Last Admin Dose Admin Acetaminophen/ Hydrocodone Bitart 1 tab Q4HP PRN PO 09/28/24 16:45 09/28/24 23:55 1 TAB Ondansetron HCl 4 mg Q4HP PRN IV 09/28/24 16:45 Acetaminophen 650 mg Q6HP PRN PO 09/28/24 16:45 Pantoprazole Sodium 40 mg DAILY IV 09/29/24 10:00 09/29/24 09:39 40 MG Furosemide 40 mg BIDD IV 09/28/24 18:00 09/29/24 06:50 40 MG Spironolactone 25 mg BIDD PO 09/28/24 18:00 09/29/24 06:49 25 MG Vancomycin HCl 0 ml @ 0 mls/hr UD IV 09/28/24 17:00 Thiamine HCl 100 mg DAILY PO 09/29/24 10:00 09/29/24 09:39 100 MG Folic Acid 1 mg DAILY PO 09/29/24 10:00 09/29/24 09:39 1 MG Multivitamins 1 tab DAILY PO 09/29/24 10:00 09/29/24 09:40 1 TAB Lorazepam 2 mg Q4HR PO 09/28/24 18:00 09/29/24 09:46 2 MG Piperacillin Sod/ Tazobactam Sod 100 ml @ 25 mls/hr Q8H IV 09/29/24 09:00 09/29/24 09:39 25 MLS/HR Vancomycin HCl 250 ml @ 200 mls/hr Q8H IV 09/29/24 06:30 09/29/24 06:51 200 MLS/HR Laboratory Results Laboratory Tests 09/29/24 05:50 Chemistry Test 09/28/24 13:29 09/29/24 05:50 Albumin 2.4 g/dL (3.2-4.8) L 2.7 g/dL (3.2-4.8) L Calcium Level 7.5 mg/dL (8.7-10.4) L 8.0 mg/dL (8.7-10.4) L Total Protein 5.6 g/dL (5.7-8.2) L 6.7 g/dL (5.7-8.2) Coagulation Test 09/28/24 13:29 Prothrombin Time 17.7 sec (9.3-11.8) H Prothrombin Time INR 1.77 (0.9-1.15) H Activated Partial Thromboplast Time 39.3 SEC (24.5-34.5) H Lipid panel Test 09/28/24 17:25 Lipase 35 U/L (12-53) LFT Test 09/28/24 13:29 09/29/24 05:50 Alanine Aminotransferase (ALT) 28 U/L (7-40) 28 U/L (7-40) Alkaline Phosphatase 183 U/L (46-116) H 202 U/L (46-116) H Aspartate Amino Transferase (AST) 86 U/L (13-40) H 96 U/L (13-40) H Total Bilirubin 7.0 mg/dL (0.2-1.0) H 8.6 mg/dL (0.2-1.0) H Labs and/or images reviewed: Labs reviewed by me, Image(s) reviewed by me Assessment/Plan Assessment/Plan Acute abdominal pain Moderate ascites: Consult for Radiology Chronic alcoholic cirrhosis Chronic current alcohol abuse Pancytopenia Hyperbilirubinemia bilirubin 7.0: Consult for Dr. Roberts Moderate malnutrition Coagulopathy INR 1.77: Vitamin K 10 mg subQ Condition guarded Prognosis poor Time spent 40 minutes Plan discussed with: Patient Date of Service: Sep 29, 2024 Billing Provider: VÍCTOR ZHU MD Common Visit Codes: [id number] INP/OBS CARE(HIGH) VÍCTOR ZHU MD Sep 29, 2024 11:57
[2024-09-29] MEDS: PHYTONADIONE (VIT K)10 MG/ML 1ML VIAL SUBCUT ONE (12:00)
--- NOTE | 2024-09-29 12:53 | DVHINCON2 ---
Date of service: Sep 29, [address] Stephenson Reason for Consultation Abdominal pain and abdominal distention with chills and weakness History of Present Illness This 29-year-old male with a history of cirrhosis of the liver with ascites with alcohol abuse and alcohol withdrawals hypertension seizure problems presented with complaints of abdominal pain with chills distention and weakness pain was sharp patient had last alcohol drink about two days ago apparently. Patient had paracentesis in the past multiple times Past Medical History History of cirrhosis of the liver hypertension seizure disorders hernia Past Surgical History Paracentesis Family History: Cirrhosis of liver G8 MOTHER Colon cancer G8 FATHER FH: prostate cancer G8 FATHER Hypertension G8 MOTHER G8 FATHER Family History Noncontributory Social History Moderate drinking Allergies: Coded Allergies: NO KNOWN ALLERGIES (Unverified , 01/27/21) Home Meds Active Scripts Multiple Vitamins W/ Minerals (Mvi W/ Minerals Tab) 1 Tab Tb, 1 TAB PO DAILY for 30 Days, #30 TAB Prov:DHEERAJ MONTANO MD 09/27/24 Metronidazole (Flagyl) 500 Mg Tab, 500 MG PO TID for 7 Days, #21 TAB Prov:DHEERAJ MONTANO MD 09/27/24 Levofloxacin Hemihydrate (LEVAQUIN 500 MG) 500 Mg Tab, 500 MG PO DAILY for 7 Days, #7 TAB Prov:DHEERAJ MONTANO MD 09/27/24 Lactulose (Lactulose) 10 Gm/15 Ml Karina, 10 GM PO BID for 30 Days, #120 ML 3 Refills Prov:DHEERAJ MONTANO MD 09/27/24 Spironolactone (Aldactone) 100 Mg Tab, 100 MG PO DAILY for 30 Days, #30 TAB 3 Refills Prov:DHEERAJ MONTANO MD 09/27/24 Furosemide (Lasix) 40 Mg Tab, 40 MG PO QAM for 30 Days, #30 TAB 3 Refills Prov:DHEERAJ MONTANO MD 09/27/24 Pantoprazole Sodium Sesquihydr (Protonix) 40 Mg Tab, 40 MG PO DAILY for 30 Days, #30 TAB 2 Refills Prov:DHEERAJ MONTANO MD 09/27/24 Chlordiazepoxide Hcl (Ni-1) (I (Librium) 10 Mg Cap, 10 MG PO Q6HR PRN for 10 Days, #30 CAP 0 Refills Prov:MARCELO GAFFNEY MD 07/21/24 Promethazine HCl (Promethegan) 25 Mg Sup, 25 MG [place] Q6HPRN PRN for 10 Days, #20 SUPP Prov:MARCELO GAFFNEY MD 07/21/24 Spironolactone (Aldactone) 25 Mg Tab, 1 TAB PO DAILY for 30 Days, #30 TAB 5 Refills Prov:JO ELDER MD 11/20/23 Furosemide (Lasix) 40 Mg Tab, 40 MG PO DAILY for 30 Days, #30 TAB Prov:JO ELDER MD 11/20/23 Reported Medications Furosemide (Furosemide) 40 Mg Tab, 40 MG PO DAILY for 30 Days 11/19/23 Ferrous Sulfate (FERROUS SULFATE) 324 Mg Tab, 324 MG PO DAILY, TAB 11/19/23 Calcium Carbonate (Calcium Carbonate) 500 Mg Chw, 500 MG PO DAILY, TAB.CHEW 11/19/23 Current Medications Current Medications Medications (Trade) Dose Ordered Sig/Gretchen Route PRN Reason Start Time Stop Time Status Last Admin Acetaminophen/ Hydrocodone Bitart ([place] 5/325MG Tab) 1 tab Q4HP PRN PO MODERATE PAIN (4-6 PAIN SCALE) 09/28/24 16:45 09/28/24 23:55 Ondansetron HCl (Zofran) 4 mg Q4HP PRN IV NAUSEA / VOMITING 09/28/24 16:45 Acetaminophen (Tylenol Tablet) 650 mg Q6HP PRN PO PAIN SCALE 1-3 OR TEMP>100.4 09/28/24 16:45 Pantoprazole Sodium (Protonix) 40 mg DAILY IV 09/29/24 10:00 09/29/24 09:39 Furosemide (Lasix Injection) 40 mg BIDD IV 09/28/24 18:00 09/29/24 06:50 Spironolactone (Aldactone) 25 mg BIDD PO 09/28/24 18:00 09/29/24 06:49 Vancomycin HCl 0 ml @ 0 mls/hr UD IV 09/28/24 17:00 Piperacillin Sod/ Tazobactam Sod 100 ml @ 25 mls/hr Q8H IV 09/29/24 01:00 09/29/24 06:26 DC Thiamine HCl 100 mg DAILY PO 09/29/24 10:00 09/29/24 09:39 Folic Acid 1 mg DAILY PO 09/29/24 10:00 09/29/24 09:39 Multivitamins (Mvi Tab) 1 tab DAILY PO 09/29/24 10:00 09/29/24 09:40 Lorazepam (Ativan Tablet) 2 mg Q4HR PO 09/28/24 18:00 09/29/24 09:46 Vancomycin HCl 250 ml @ 200 mls/hr Q8H IV 09/29/24 02:00 09/29/24 06:29 DC Piperacillin Sod/ Tazobactam Sod 100 ml @ 25 mls/hr Q8H IV 09/29/24 09:00 09/29/24 09:39 Vancomycin HCl 250 ml @ 200 mls/hr Q8H IV 09/29/24 06:30 09/29/24 06:51 Review of Systems Noncontributory Vital Signs Vital Signs Date Time Temp Pulse Resp B/P (MAP) Pulse Ox O2 Delivery O2 Flow Rate FiO2 09/29/24 09:01 98.2 84 20 110/64 (79) 96 98.2 09/29/24 08:00 Room Air* 0 21 Physical Exam Moderately built and nourished male in no acute distress Vital stable HEENT is mild pallor lungs clear Cardiovascular unremarkable Abdomen mildly distended with a as possible ascites no tenderness no rigidity Small umbilical hernia Bowel sounds normal Extremities mild edema no calf tenderness Labs/Diagnostic Data Labs Test 09/29/24 05:50 09/28/24 17:25 09/28/24 13:29 Range/Units White Blood Count 6.8 4.4-10.8 10^3/uL Red Blood Count 3.83 L 4.5-5.90 10^6/uL Hemoglobin 9.3 #L 13.5-17.5 g/dL Hematocrit 29.7 #L 41.0-53.0 % Mean Corpuscular Volume 77.4 L 80.0-100.0 fL Mean Corpuscular Hemoglobin 24.2 L 28.0-32.0 pg Mean Corpuscular Hemoglobin Concent 31.3 L 32.0-36.0 g/dL Red Cell Distribution Width 25.9 H 11.8-14.3 % Platelet Count 85 L 140-450 10^3/uL Mean Platelet Volume 8.5 6.9-10.8 fL Neutrophils (%) (Auto) 81.7 H 37.0-80.0 % Lymphocytes (%) (Auto) 9.0 L 10.0-50.0 % Monocytes (%) (Auto) 4.0 0.0-12.0 % Eosinophils (%) (Auto) 5.1 0.0-7.0 % Basophils (%) (Auto) 0.2 0.0-2.0 % Neutrophils # (Auto) 5.6 1.6-8.6 10 ^3/uL Lymphocytes # (Auto) 0.6 0.4-5.4 10 ^3/uL Monocytes # (Auto) 0.3 0-1.3 10 ^3/uL Eosinophils # (Auto) 0.3 0-0.8 10 ^3/uL Basophils # (Auto) 0 0-0.2 10 ^3/uL Nucleated Red Blood Cells 0.1 % Sodium Level 135 L 136-145 mmol/L Potassium Level 4.3 3.5-5.1 mmol/L Chloride Level 102 98-107 mmol/L Carbon Dioxide Level 27 20-31 mmol/L Anion Gap 6 5-15 Blood Urea Nitrogen 18 9-23 mg/dL Creatinine 1.04 0.700-1.30 mg/dL Glomerular Filtration Rate Calc 98 >90 mL/min BUN/Creatinine Ratio 17.3 10.0-20.0 Serum Glucose 100 74-106 mg/dL Calcium Level 8.0 L 8.7-10.4 mg/dL Total Bilirubin 8.6 H 0.2-1.0 mg/dL Aspartate Amino Transferase (AST) 96 H 13-40 U/L Alanine Aminotransferase (ALT) 28 7-40 U/L Alkaline Phosphatase 202 H 46-116 U/L Total Protein 6.7 5.7-8.2 g/dL Albumin 2.7 L 3.2-4.8 g/dL Lipase 35 12-53 U/L Plasma/Serum Blood Alcohol < 3.0 <10 mg/dL Platelet Estimate Decreased Hypochromasia (manual) Moderate Anisocytosis (manual) Moderate Microcytosis Slight Target Cells Few Prothrombin Time 17.7 H 9.3-11.8 sec Prothrombin Time INR 1.77 H 0.9-1.15 Activated Partial Thromboplast Time 39.3 H 24.5-34.5 SEC Lactic Acid Level 1.4 0.4-2.0 mmol/L Ammonia 16 11-32 umol/L Assessment 37-year-old with a history so was the liver with ascites and with recurrent paracentesis with end-stage liver disease from alcoholism has got fever chills weakness etc.. Possibly patient has got spontaneous bacterial peritonitis End-stage liver disease anemia Plan/Recommendation Antibiotics Somatic treatment for pain paracentesis as necessary Follow the hemoglobin closely Watch for bleeding Watch for DTs His overall prognosis is guarded Thank you Dr. Armando Pierre discussed with: Patient WILSON ANN MD Sep 29, 2024 12:53
[2024-09-29] MEDS: MUPIROCIN 2% OINT 15gm or 22gm FOR MRSA NARES EACHNOSTRI SCH (22:14)
[2024-09-30] VITALS (8 sets, daily range): BP systolic 104–134; BP diastolic 57–87; PULSE 78–91; RESP 17–19; TEMP 97.6–97.9; O2SAT 97–98
[2024-09-30] MEDS: LORazepam 0.5 MG TAB PO SCH (10:43)
--- NOTE | 2024-09-30 12:58 | DVHPN2 ---
Reviewed: Care Plan, H&P, Labs, Medications, Previous Orders, Radiology Changes from previous H/P or p: No Changes Eyes: No Pain, No Vision change, No Conjunctivae inflammation, No Eyelid inflammation, No Other, No Redness ENT: No Ear pain, No Ear discharge, No Nose pain, No Nose discharge, No Nose congestion, No Mouth pain, No Mouth swelling, No Throat pain, No Throat swelling, No Other Cardiovascular: No Chest Pain, No Palpitations, No Orthopnea, No Paroxysmal Noc. Dyspnea, No Edema, No Lt Headedness, No Other Respiratory: No Cough, No Dry, No Shortness of breath, No SOB with excertion, No Wheezing, No Hemoptysis, No Pleuritic Pain, No Sputum, No Other Gastrointestinal: Abdominal Pain, Other Genitourinary: No Dysuria, No Frequency, No Incontinence, No Hematuria, No Retention, No Other Musculoskeletal: No other, No neck pain, No shoulder pain, No arm pain, No back pain, No hand pain, No leg pain, No foot pain Objective Vitals Vital Signs Date Time Temp Pulse Resp B/P (MAP) Pulse Ox O2 Delivery O2 Flow Rate FiO2 09/30/24 08:30 97.9 91 18 117/66 (83) 98 97.9 09/30/24 08:00 Room Air* 0 21 Intake/Output Intake and Output 09/30/24 07:00 Intake Total 1315 ml Output Total 100 ml Balance 1215 ml Intake Oral 1315 ml Output Urine Total 100 ml Medications Current Medications Medications Dose Ordered Sig/Gretchen Route Start Time Stop Time Status Last Admin Dose Admin Acetaminophen/ Hydrocodone Bitart 1 tab Q4HP PRN PO 09/28/24 16:45 09/30/24 04:53 1 TAB Ondansetron HCl 4 mg Q4HP PRN IV 09/28/24 16:45 Acetaminophen 650 mg Q6HP PRN PO 09/28/24 16:45 Pantoprazole Sodium 40 mg DAILY IV 09/29/24 10:00 09/30/24 10:41 40 MG Furosemide 40 mg BIDD IV 09/28/24 18:00 09/30/24 06:01 40 MG Spironolactone 25 mg BIDD PO 09/28/24 18:00 09/30/24 10:42 25 MG Vancomycin HCl 0 ml @ 0 mls/hr UD IV 09/28/24 17:00 Thiamine HCl 100 mg DAILY PO 09/29/24 10:00 09/30/24 10:42 100 MG Folic Acid 1 mg DAILY PO 09/29/24 10:00 09/29/24 09:39 1 MG Multivitamins 1 tab DAILY PO 09/29/24 10:00 09/30/24 10:42 1 TAB Piperacillin Sod/ Tazobactam Sod 100 ml @ 25 mls/hr Q8H IV 09/29/24 09:00 09/30/24 10:41 25 MLS/HR Mupirocin 1 applic BID EACHNOSTRI 09/29/24 22:00 10/04/24 21:59 09/30/24 10:00 1 APPLIC Lorazepam 2 mg Q4HR PO 09/30/24 07:30 09/30/24 10:45 2 MG Laboratory Results Laboratory Tests 09/29/24 05:50 Microbiology Microbiology Date/Time Source Procedure Growth Status 09/29/24 02:25 Nose MRSA Screen - Final Complete Labs and/or images reviewed: Labs reviewed by me, Image(s) reviewed by me Assessment/Plan Assessment/Plan Acute abdominal pain Moderate ascites: Consult for Radiology for paracentesis Chronic alcoholic cirrhosis Chronic current alcohol abuse Pancytopenia Hyperbilirubinemia bilirubin 7.0: Consult for Dr. Roberts Moderate malnutrition Coagulopathy INR 1.77: Vitamin K 10 mg subQ Condition guarded Prognosis poor Time spent 40 minutes Plan discussed with: Patient My Orders Orders - VÍCTOR ZHU MD Procedure Category Date Status Time Mupirocin 2% Oint PHA 09/29/24 In Process Mrsa Nares (Bactroban 22:00 Date of Service: Sep 30, 2024 Billing Provider: VÍCTOR ZHU MD Common Visit Codes: [id number] INP/OBS CARE(HIGH) VÍCTOR ZHU MD Sep 30, 2024 12:58
[2024-09-30 14:35] LABS: INR 1.71 (0.9-1.15); Prothrombin Time 17.2 sec (9.3-11.8)
--- NOTE | 2024-09-30 15:34 | DVHPN2 ---
Progress Note - Dictate Date Seen: Sep 30, 2024 Has the PT tested + for MRSA If YES, has PT been informed?: No Medical Necessity Reason Pt with a Central, PICC or Fol: No Subjective Patient has still got abdominal fullness and pain and hernia periumbilically which is giving him discomfort vital signs Vital Sign Date Time Temp Pulse Resp B/P (MAP) Pulse Ox O2 Delivery O2 Flow Rate FiO2 09/30/24 13:00 97.9 80 18 118/78 (91) 98 97.9 09/30/24 08:00 Room Air* 0 21 Total Intake and Output 09/29/24 09/29/24 09/30/24 15:00 23:00 07:00 Intake Total 240 ml 900 ml 175 ml Output Total 100 ml Balance 240 ml 900 ml 75 ml medications Current Medications Medications Dose Ordered Sig/Gretchen Route Start Time Stop Time Status Last Admin Dose Admin Acetaminophen/ Hydrocodone Bitart 1 tab Q4HP PRN PO 09/28/24 16:45 09/30/24 04:53 1 TAB Ondansetron HCl 4 mg Q4HP PRN IV 09/28/24 16:45 Acetaminophen 650 mg Q6HP PRN PO 09/28/24 16:45 Pantoprazole Sodium 40 mg DAILY IV 09/29/24 10:00 09/30/24 10:41 40 MG Furosemide 40 mg BIDD IV 09/28/24 18:00 09/30/24 06:01 40 MG Spironolactone 25 mg BIDD PO 09/28/24 18:00 09/30/24 10:42 25 MG Vancomycin HCl 0 ml @ 0 mls/hr UD IV 09/28/24 17:00 Thiamine HCl 100 mg DAILY PO 09/29/24 10:00 09/30/24 10:42 100 MG Folic Acid 1 mg DAILY PO 09/29/24 10:00 09/29/24 09:39 1 MG Multivitamins 1 tab DAILY PO 09/29/24 10:00 09/30/24 10:42 1 TAB Piperacillin Sod/ Tazobactam Sod 100 ml @ 25 mls/hr Q8H IV 09/29/24 09:00 09/30/24 10:41 25 MLS/HR Mupirocin 1 applic BID EACHNOSTRI 09/29/24 22:00 10/04/24 21:59 09/30/24 10:00 1 APPLIC Lorazepam 2 mg Q4HR PO 09/30/24 07:30 09/30/24 10:45 2 MG Vancomycin HCl 250 ml @ 250 mls/hr Q16H IV 09/30/24 16:00 UNV objective Patient has got significant ascites which we will need paracentesis Abdomen full no rigidity no guarding Periumbilical hernia present laboratory and microbiology Laboratory Tests 09/29/24 05:50 Test 09/29/24 05:50 Range/Units Serum Glucose 100 74-106 mg/dL Assessment/Plan 37-year-old with a history of cirrhosis the liver with ascites and with recurrent paracentesis with end-stage liver disease from alcoholism has got fever chills weakness etc.. Possibly patient has got spontaneous bacterial peritonitis End-stage liver disease Ascites periumbilical abdominal wall hernia will recommend abdominal paracentesis ultrasound-guided by Radiology Follow the liver enzymes continue with diuretics Overall prognosis guarded Thank you Dr. Roberts Plan discussed with: Patient WILSON ROBERTS MD Sep 30, 2024 15:34
[2024-09-30] MEDS: VANCOMYCIN 1GM/250ML KIT 250 ML IV SCH (16:00)
[2024-10-01 01:00] VITALS: BP 118/76; PULSE 74; RESP 17; TEMP 97.7; O2SAT 96
[2024-10-01 05:00] VITALS: BP 105/69; PULSE 84; RESP 18; TEMP 97.6; O2SAT 95
[2024-10-01 06:50] LABS: Hemoglobin 8.4 g/dL (13.5-17.5); White Blood Cell 5.4 10^3/uL (4.4-10.8)
[2024-10-01 06:53] LABS: Hematocrit 27.1 % (41.0-53.0); Mean Corpuscular Hemoglobin 24.2 pg (28.0-32.0); Mean Corpuscular Volume 77.9 fL (80.0-100.0); Platelet Count (auto) 77 10^3/uL (140-450); Red Blood Cells 3.48 10^6/uL (4.5-5.90); Red Cell Distribution Width 26.5 % (11.8-14.3)
[2024-10-01 07:06] LABS: Band Neutrophils % (manual) 0; Basophils % (manual) 0 (0.0-2.0); Blast Cells 0; Metamyelocytes % 0; Myelocytes % 0; Promyelocytes % 0; Reactive Lymphocytes 0
[2024-10-01 08:00] VITALS: PULSE 84; RESP 18; O2SAT 95
[2024-10-01 08:26] LABS: Eosinophils % (manual) 3 (0-7); Lymphocytes % (manual) 16 (10.0-50.0); Monocytes % (manual) 5 (0-12); Platelet Estimate Decrea
[2024-10-01 08:27] LABS: Anisocytosis Slight; Hypochromia Slight; Target Cell FEW
[2024-10-01 08:45] VITALS: BP 111/73; PULSE 104; RESP 18; TEMP 98.3; O2SAT 100
--- NOTE | 2024-10-01 09:51 | DVH ---
US PARACENTESIS, HISTORY: ASCITES PROCEDURE: Informed consent was obtained. The patient was placed in supine position. A limited locali zation ultrasound of the abdomen was obtained, and the skin site over the largest pocket of fluid was marked and entry site was prepped with chlorhexidine which was allowed to dry and draped in the usua l sterile fashion. Time out was performed. Following administration of 1% lidocaine local anesthetic, a 5 Vietnamese centesis needle catheter was percutaneously inserted into the peritoneal collection until fluid was aspirated. The catheter was advanced into the fluid collection and the needle removed. Abo ut 4400 cc of fluid was aspirated . The catheter was then removed and a sterile dressing applied. No immediate complication was identified. FINDINGS: Limited ultrasound imaging demonstrates moderate ascites. Aspirated fluid was clear and ser ous. IMPRESSION: US-guided paracentesis with 4.4L removed.
[2024-10-01 11:44] LABS: Body Fluid Polymorphonuclear 7 % (0-25); Body Fluid Red Blood Cells 234 CUMM (0-2000); Body Fluid White Blood Cells 165 CUMM (0-200)
--- NOTE | 2024-10-01 12:52 | DVHDS2 ---
Discharge Summary Date of Admission Sep 28, 2024 at 16:43 Date of Discharge: Oct 01, 2024 Labs/Diagnostic Data: Laboratory Results Test 10/01/24 08:48 10/01/24 05:38 09/30/24 13:40 09/29/24 05:50 Body Fluid Source Ascities fluid Body Fluid pH 8.0 Body Fluid WBC (Manual) 165 CUMM (0-200) Body Fluid RBC (Manual) 234 CUMM (0-2000) Body Fluid Mononuclear Cells 93 % Body Fluid Polymorphonuclear Cells 7 % (0-25) White Blood Count 5.4 10^3/uL (4.4-10.8) Red Blood Count 3.48 10^6/uL (4.5-5.90) Hemoglobin 8.4 g/dL (13.5-17.5) Hematocrit 27.1 % (41.0-53.0) Mean Corpuscular Volume 77.9 fL (80.0-100.0) Mean Corpuscular Hemoglobin 24.2 pg (28.0-32.0) Mean Corpuscular Hemoglobin Concent 31.0 g/dL (32.0-36.0) Red Cell Distribution Width 26.5 % (11.8-14.3) Platelet Count 77 10^3/uL (140-450) Mean Platelet Volume 8.7 fL (6.9-10.8) Neutrophils (%) (Auto) % (37.0-80.0) Lymphocytes (%) (Auto) % (10.0-50.0) Monocytes (%) (Auto) % (0.0-12.0) Eosinophils (%) (Auto) % (0.0-7.0) Basophils (%) (Auto) % (0.0-2.0) Neutrophils # (Auto) 10 ^3/uL (1.6-8.6) Lymphocytes # (Auto) 10 ^3/uL (0.4-5.4) Monocytes # (Auto) 10 ^3/uL (0-1.3) Eosinophils # (Auto) 10 ^3/uL (0-0.8) Basophils # (Auto) 10 ^3/uL (0-0.2) Differential Total Cells Counted 100.0 (100) Neutrophils % (Manual) 76 (37.0-80.0) Band Neutrophils % (Manual) 0 Lymphocytes % (Manual) 16 (10.0-50.0) Monocytes % (Manual) 5 (0-12) Eosinophils % (Manual) 3 (0-7) Basophils % (Manual) 0 (0.0-2.0) Metamyelocytes % (manual) 0 Myelocytes % (Manual) 0 Promyelocytes % (Manual) 0 Blast Cells % (Manual) 0 Nucleated Red Blood Cells % Reactive Lymphocytes 0 Platelet Estimate Decrea Large Platelets Hypochromasia (manual) Slight Anisocytosis (manual) Slight Microcytosis Slight Target Cells Few Prothrombin Time 17.2 sec (9.3-11.8) Prothrombin Time INR 1.71 (0.9-1.15) Activated Partial Thromboplast Time 41.0 SEC (24.5-34.5) Creatinine 1.43 mg/dL (0.700-1.30) Glomerular Filtration Rate Calc 67 mL/min (>90) Vancomycin Level Trough 8.8 ug/mL (5-10) Sodium Level 135 mmol/L (136-145) Potassium Level 4.3 mmol/L (3.5-5.1) Chloride Level 102 mmol/L (98-107) Carbon Dioxide Level 27 mmol/L (20-31) Anion Gap 6 (5-15) Blood Urea Nitrogen 18 mg/dL (9-23) BUN/Creatinine Ratio 17.3 (10.0-20.0) Serum Glucose 100 mg/dL (74-106) Calcium Level 8.0 mg/dL (8.7-10.4) Total Bilirubin 8.6 mg/dL (0.2-1.0) Aspartate Amino Transferase (AST) 96 U/L (13-40) Alanine Aminotransferase (ALT) 28 U/L (7-40) Alkaline Phosphatase 202 U/L (46-116) Total Protein 6.7 g/dL (5.7-8.2) Albumin 2.7 g/dL (3.2-4.8) Test 09/28/24 17:25 09/28/24 13:29 Lipase 35 U/L (12-53) Plasma/Serum Blood Alcohol < 3.0 mg/dL (<10) Lactic Acid Level 1.4 mmol/L (0.4-2.0) Ammonia 16 umol/L (11-32) Other Laboratory Tests 10/01/24 05:38 09/30/24 13:40 09/29/24 05:50 Brief Hx & Hospital Course: see dictated note Condition at Discharge: Fair Final Diagnosis/Problems List liver cirrhosis Discharge Disposition: Home Discharge Instruct/Medications Diet: Cardiac 2g Na,low cholest Activity: No Restrictions, As Tolerated Follow Up/Referral: fu with pcp in 1 wk Medications: resums home meds Discharge Statement: "Patient was advised to return to the ER or call 911 if any headaches, dizziness, shortness of breath, chest pain, abdominal pain, bleeding, fevers, or worsening of medical condition. Patient was counseled about treatment plan, medications, possible side effects, patientverbalized understanding. All questions were answered to the best of my ability. This discharge took greater then 30 minutes in planning, reviewing documentation, counseling the patient, and discussing with other team members." ASSESSMENT ASSESSMENT Assessment liver cirrhosis Date of Service: Oct 01, 2024 Billing Provider: DHEERAJ MONTANO MD Common Visit Codes: 03477-XGR/OBS DISCH DAY >30min DHEERAJ MONTANO MD Oct 01, 2024 12:52
[2024-10-01 13:00] VITALS: BP 119/68; PULSE 80; RESP 16; TEMP 98.6; O2SAT 96
--- NOTE | 2024-10-01 13:18 | DVHDS ---
DATE OF DISCHARGE: 10/01/2024 HISTORY OF PRESENT ILLNESS: The patient is a 29-year-old gentleman, who was recently discharged, who came with complaints of abdominal distention and discomfort and has a history of liver cirrhosis and alcohol abuse. HOSPITAL COURSE: The patient was seen by Dr. Gunderson. Bilirubin was 8.0. The patient's ammonia level was 16. The patient's tox screen was negative for alcohol. Hemoglobin was 8.4. The patient underwent paracentesis with removal of 4.1 liters of fluid. He was seen in GI consult by Dr. Roberts. A CT of abdomen and pelvis showed clustered nodular opacities in the left upper lobe, cirrhosis and cholelithiasis. The patient will now be discharged home. He will resume his home medications with which he had been recently discharged including antibiotics. He will follow up with his primary in 1 week. FINAL DIAGNOSES: Therefore, * Ascites, status post paracentesis. * Liver cirrhosis with liver failure. * Alcohol abuse. * Pancytopenia due to hypersplenism. * Questionable pneumonia. * Gallstones. * Umbilical hernia. Time spent in discharge planning and review of plan with the patient and nursing was 37 minutes. MD JARRED Thomas/BRIDGETTE TID: [id number] RECEIPT: [id number]
== END 2024-10-01 15:50 | disposition home or self-care (01) | DRG 280 ==
LOC: ER 11:50 → OVERFLOW 16:43 → WEST WING 09-29 02:00
PROVIDERS: ATTEND Internal Medicine
PROC: 0W9G3ZZ Drainage of Peritoneal Cavity, Percutaneous Approach (ICD-10-PCS; principal; 2024-10-01)
DX: K70.31 Alcoholic cirrhosis of liver with ascites (principal); D61.818 Other pancytopenia; J15.69 Pneumonia due to other Gram-negative bacteria; D68.9 Coagulation defect, unspecified; J15.9 Unspecified bacterial pneumonia; E44.0 Moderate protein-calorie malnutrition; D63.8 Anemia in other chronic diseases classified elsewhere; K72.10 Chronic hepatic failure without coma; F10.20 Alcohol dependence, uncomplicated; D73.1 Hypersplenism; K43.9 Ventral hernia without obstruction or gangrene; K80.20 Calculus of gallbladder without cholecystitis without obstruction; K42.9 Umbilical hernia without obstruction or gangrene; I10 Essential (primary) hypertension; Z79.01 Long term (current) use of anticoagulants; Z68.29 Body mass index [BMI] 29.0-29.9, adult; Z80.0 Family history of malignant neoplasm of digestive organs; Z80.42 Family history of malignant neoplasm of prostate; Z82.49 Family history of ischemic heart disease and other diseases of the circulatory system; Y90.9 Presence of alcohol in blood, level not specified
CPT/HCPCS: 36415; 49083; 74176; 76942; 80053; 80202; 80320; 82140; 82565; 83605; 83690; 83986; 85007; 85025; 85027; 85610; 85730; 86850; 86900; 86901; 87081; 87205; 89051; 96365; 96368; G0378; J2470; J2543; J3430

== ENCOUNTER 2024-10-12 13:13 | Inpatient (IN) | payer MEDICAID ==
[~2024-10-12] VITALS: Ht 170.2 cm; Wt 74.7 kg
[~2024-10-12 13:13] MED LIST changes: -LACT10SO3 PO; -LEVO500T91 PO; -PRO25RS PR
[2024-10-12 14:12] LABS: Alanine Aminotransferase 37 U/L (7-40); Anion Gap 9 (5-15); Carbon Dioxide 23 mmol/L (20-31); Chloride 106 mmol/L (98-107); Potassium 3.8 mmol/L (3.5-5.1); Sodium 138 mmol/L (136-145); Total Protein 6.9 g/dL (5.7-8.2)
[2024-10-12 14:20] LABS: Albumin 2.8 g/dL (3.2-4.8); Alkaline Phosphatase 245 U/L (46-116); Aspartate Aminotransferase 102 U/L (13-40); Bilirubin, Total 9.6 mg/dL (0.2-1.0); Blood Urea Nitrogen 30 mg/dL (9-23); Calcium 8.3 mg/dL (8.7-10.4); Glucose 116 mg/dL (74-106)
[2024-10-12 14:30] LABS: BUN/Creatinine Ratio 23.8 (10.0-20.0)
--- NOTE | 2024-10-12 14:33 | ED.PDOC ---
History of Present Illness HPI Comments 29 y/o M, with a history of cirrhosis w/liver failure, ascites s/p paracentesis, gallstones, HTN, seizures, current umbilical hernia, alcohol abuse, and pancytopenia due to hypersplenism, presents with c/o diffused abdominal pain and distension, nausea, vomiting, diarrhea, and yellowing skin, today. Patient endorses on feeling worse, today, after receiving paracentesis, yesterday, during initial visit for abdominal pain and distension then. He denies having any hematemesis, hematochezia, fever, chills, weakness, shortness of breath, or other associated symptoms or modifiers at this time. Chief Complaint: Abdominal Pain Time Seen by MD: 13:20 Primary Care Provider: YVETTE Reviewed Notes: Nurses Notes, Medications, Allergies Allergies: Coded Allergies: NO KNOWN ALLERGIES (Unverified , 01/27/21) Home Meds Active Scripts Multiple Vitamins W/ Minerals (Mvi W/ Minerals Tab) 1 Tab Tb, 1 TAB PO DAILY for 30 Days, #30 TAB Prov:DHEERAJ MONTANO MD 09/27/24 Metronidazole (Flagyl) 500 Mg Tab, 500 MG PO TID for 7 Days, #21 TAB Prov:DHEERAJ MONTANO MD 09/27/24 Spironolactone (Aldactone) 100 Mg Tab, 100 MG PO DAILY for 30 Days, #30 TAB 3 Refills Prov:DHEERAJ MONTANO MD 09/27/24 Furosemide (Lasix) 40 Mg Tab, 40 MG PO QAM for 30 Days, #30 TAB 3 Refills Prov:DHEERAJ MONTANO MD 09/27/24 Pantoprazole Sodium Sesquihydr (Protonix) 40 Mg Tab, 40 MG PO DAILY for 30 Days, #30 TAB 2 Refills Prov:DHEERAJ MONTANO MD 09/27/24 Chlordiazepoxide Hcl (Ni-1) (I (Librium) 10 Mg Cap, 10 MG PO Q6HR PRN for 10 Days, #30 CAP 0 Refills Prov:MARCELO GAFFNEY MD 07/21/24 Spironolactone (Aldactone) 25 Mg Tab, 1 TAB PO DAILY for 30 Days, #30 TAB 5 Refills Prov:JO ELDER MD 11/20/23 Furosemide (Lasix) 40 Mg Tab, 40 MG PO DAILY for 30 Days, #30 TAB Prov:JO ELDER MD 11/20/23 Reported Medications Furosemide (Furosemide) 40 Mg Tab, 40 MG PO DAILY for 30 Days 11/19/23 Ferrous Sulfate (FERROUS SULFATE) 324 Mg Tab, 324 MG PO DAILY, TAB 11/19/23 Calcium Carbonate (Calcium Carbonate) 500 Mg Chw, 500 MG PO DAILY, TAB.CHEW 11/19/23 Information Source: Patient Mode of Arrival: Wheelchair Severity: Moderate Timing: Days Duration: Since onset Prehospital treatment: Other (see HPI) Past Medical History PAST MEDICAL HISTORY: Gallstones, HTN, Liver (cirrhosis w/liver failure ), Seizures Past Medical History (Other): ascites, pancytopenia due to hypersplenism, current umbilical hernia Surgical History: Hernia Repair Surgical History (Other): paracentesis Family History Family History: Family hx of Cancer Social History Smoker: Non-Smoker Alcohol: Heavy Drugs: Denies Drug Use Lives In: Home Gastrointestinal: reports: abdomen distended, abdominal pain, diarrhea, nausea, vomiting Integumetry: reports: change in color (generalized yellow apperance ) All Other Systems: Reviewed and Negative (negative unless otherwise stated above or in HPI) Physical Exam General Appearance: No Apparent Distress, Normal HEENT: Normal ENT Inspection, Pharynx Normal, TMs Normal Neck: Full Range of Motion, Non-Tender, Normal, Normal Inspection Respiratory: Chest Non-Tender, Lungs Clear, No Accessory Muscle Use, No Respiratory Distress, Normal Breath Sounds Cardiovascular: No Edema, No JVD, No Murmur, No Gallop, Normal Peripheral Pulses, Regular Rate/Rhythm Breast Exam: Deferred Gastrointestinal: Diffuse (diffuse distention secondary to ascites build up), Distended (diffuse distention secondary to ascites build up), Hernia (large, reducible umbilical hernia w/o tenderness), No Organomegaly, Non Tender, No Pulsatile Mass, Normal Bowel Sounds, Soft Genitalia: Deferred Pelvic: Deferred Rectal: Deferred Extremities: No calf tenderness, Normal capillary refill, Normal inspection, Normal range of motion, Non-tender, No pedal edema Musculoskeletal : Apperance: Normal Neurologic: Alert, guest services representative II-XII nml as Tested, No Motor Deficits, Normal Affect, Normal Mood, No Sensory Deficits Cerebellar Function: Normal Reflexes: Normal Skin: Dry, Normal Color, Warm Lymphatic: No Adenopathy Was a procedure done? Was a procedure done?: No Differential Dx Considerations may include: ascites, infection s/p paracentesis, peritonitis, SBP X-Ray, Labs, Meds, VS Vital Signs Date Time Temp Pulse Resp B/P (MAP) Pulse Ox O2 Delivery O2 Flow Rate FiO2 10/12/24 13:24 98.1 105 20 124/78 (93) 100 Lab Test 10/12/24 13:37 10/12/24 13:36 Range/Units Sodium Level 138 136-145 mmol/L Potassium Level 3.8 3.5-5.1 mmol/L Chloride Level 106 98-107 mmol/L Carbon Dioxide Level 23 20-31 mmol/L Anion Gap 9 5-15 Blood Urea Nitrogen 30 H 9-23 mg/dL Creatinine 1.26 0.700-1.30 mg/dL Glomerular Filtration Rate Calc 78 >90 mL/min BUN/Creatinine Ratio 23.8 H 10.0-20.0 Serum Glucose 116 H 74-106 mg/dL Calcium Level 8.3 L 8.7-10.4 mg/dL Total Bilirubin 9.6 H 0.2-1.0 mg/dL Aspartate Amino Transferase (AST) 102 H 13-40 U/L Alanine Aminotransferase (ALT) 37 7-40 U/L Alkaline Phosphatase 245 H 46-116 U/L Total Protein 6.9 5.7-8.2 g/dL Albumin 2.8 L 3.2-4.8 g/dL Lipase 80 H 12-53 U/L White Blood Count 6.5 4.4-10.8 10^3/uL Red Blood Count 3.81 L 4.5-5.90 10^6/uL Hemoglobin 9.9 L 13.5-17.5 g/dL Hematocrit 31.3 L 41.0-53.0 % Mean Corpuscular Volume 82.2 80.0-100.0 fL Mean Corpuscular Hemoglobin 26.1 L 28.0-32.0 pg Mean Corpuscular Hemoglobin Concent 31.7 L 32.0-36.0 g/dL Red Cell Distribution Width 33.0 H 11.8-14.3 % Platelet Count 85 L 140-450 10^3/uL Mean Platelet Volume 9.2 6.9-10.8 fL Neutrophils (%) (Auto) 80.4 H 37.0-80.0 % Lymphocytes (%) (Auto) 7.5 L 10.0-50.0 % Monocytes (%) (Auto) 5.2 0.0-12.0 % Eosinophils (%) (Auto) 6.3 0.0-7.0 % Basophils (%) (Auto) 0.6 0.0-2.0 % Neutrophils # (Auto) 5.2 1.6-8.6 10 ^3/uL Lymphocytes # (Auto) 0.5 0.4-5.4 10 ^3/uL Monocytes # (Auto) 0.3 0-1.3 10 ^3/uL Eosinophils # (Auto) 0.4 0-0.8 10 ^3/uL Basophils # (Auto) 0 0-0.2 10 ^3/uL Nucleated Red Blood Cells 0.1 % Platelet Estimate Decreased Anisocytosis (manual) Slight Target Cells Few Time of 1ST Reevaluation: 13:50 Reevaluation 1ST: Unchanged Patient Education/Counseling: Diagnosis, Treatment, Prognosis, Need For Follow Up Family Education/Counseling: No Family Present Additional Information - I reviewed the following notes from patient's past medical encounters: ED physician visit note on 09/22/24 and 09/28/24 and hospital admission discharge summary report on 09/27/24 and 10/01/24. - The following tests were ordered, and results were reviewed by me: lipase, CMP, CBC - I discussed treatments and results with medical personnel pt has recurrent ascites, and reportedly had paracentesis yesterday, which worsened the pain. on exam, he has no tenderness, and has a reducible umbilical hernia, with ascites. the concern is peritonitis. pt will be admitted for repeat paracentesis, since he still have a significant ascites and will be evaluated for peritonitis Departure 1 Departure Time of Disposition: 15:28 Impression: Primary Impression: Acute abdominal pain Additional Impressions: Ascites Qualified Codes: K70.31 - Alcoholic cirrhosis of liver with ascites Cirrhosis Disposition: ADMITTED INPATIENT Admit to: Med Surg Condition: Serious Discharged With: Self Critical Care Note Critical Care Time?: Yes (55 min-critical care time only) Critical care comment: due to concerns for patient's condition deteriorating, the care required my highest level of attention and readiness to intervene. i assessed the patient's condition, ordered the proper tests and treatments, reassessed for response and reviewed the results. i communicated with medical personnel and formulated a plan of care. total critical care time does not include any procedures Stability Stability form required: No Heart Score Heart Score: Heart Score Response (Comments) Value History N/A 0 EKG N/A 0 Age N/A 0 Risk Factors N/A 0 Troponin N/A 0 Total 0 I personally scribed for YASMIN LEVY MD ([email or web address]) on 10/12/24 at 14:33. Electronically submitted by Roman Carrington ([email or web address]). I personally scribed for YASMIN LEVY MD ([email or web address]) on 10/12/24 at 14:40. Electronically submitted by Roman Carrington ([email or web address]). YASMIN LEVY MD Oct 12, 2024 14:33
[2024-10-12 14:36] LABS: Basophils # (auto) 0 10 ^3/uL (0-0.2); Eosinophils # (auto) 0.4 10 ^3/uL (0-0.8); Lymphocytes # (auto) 0.5 10 ^3/uL (0.4-5.4); Mean Corpuscular Volume 82.2 fL (80.0-100.0); Monocytes # (auto) 0.3 10 ^3/uL (0-1.3); Nucleated Red Blood Cells % 0.1 %
[2024-10-12 14:37] LABS: Basophils % (auto) 0.6 % (0.0-2.0); Eosinophils % (auto) 6.3 % (0.0-7.0); Hematocrit 31.3 % (41.0-53.0); Hemoglobin 9.9 g/dL (13.5-17.5); Lymphocytes % (auto) 7.5 % (10.0-50.0); Mean Corpuscular Hemoglobin 26.1 pg (28.0-32.0); Mean Corpuscular Hgb Conc. 31.7 g/dL (32.0-36.0); Monocytes % (auto) 5.2 % (0.0-12.0); Neutrophils # (auto) 5.2 10 ^3/uL (1.6-8.6); Neutrophils % (auto) 80.4 % (37.0-80.0); Platelet Count (auto) 85 10^3/uL (140-450); Red Blood Cells 3.81 10^6/uL (4.5-5.90); White Blood Cell 6.5 10^3/uL (4.4-10.8)
[2024-10-12 15:00] LABS: Platelet Estimate Decreased
[2024-10-12 15:00] LABS: Lipase 80 U/L (12-53)
[2024-10-12 15:01] LABS: Anisocytosis Slight; Target Cell FEW
[2024-10-12 17:15] VITALS: PULSE 94; RESP 18; O2SAT 100
[2024-10-12] MEDS: HYDROcodone-ACET 5/325MG TAB PO ONE (19:49)
[2024-10-12] MEDS ORDERED: ACETAMINOPHEN 325 MG TAB PO PRN ×2 (20:30→20:45)
[2024-10-12] MEDS ORDERED: ONDANSETRON HCL 4 MG/2 ML VIAL IV PRN (20:30)
[2024-10-12] MEDS: SODIUM CHLORIDE 0.9% 1,000 ML IV SCH (20:30)
[2024-10-12] MEDS ORDERED: DOCUSATE SOD 100 MG CAP PO PRN (20:30)
[2024-10-12] MEDS ORDERED: HYDROcodone-ACET 5/325MG TAB PO PRN (20:30)
[2024-10-12] MEDS ORDERED: NITROGLYCERIN 0.4 MG SL TAB SL PRN (21:00)
[2024-10-12] MEDS ORDERED: IBUPROFEN 400 MG TAB PO PRN (21:00)
[2024-10-12] MEDS ORDERED: MORPHINE SULFATE INJ 2 MG/ml SYRG IV PRN (21:00)
--- NOTE | 2024-10-12 21:21 | DVHHP2 ---
History of Present Illness Reason for Visit: Alcoholic cirrhosis of liver with ascites History of Present Illness The patient is a 29-year-old male with past medical history of liver cirrhosis, seizures, hypertension, and gallstones who presented to [facility] ED with complaint of diffuse abdominal pain. Patient reports symptoms progressively get worse with abdominal distention, diarrhea, associated nausea, vomiting, jaundice, getting worse today that prompted this visit. Patient reports he had paracentesis yesterday, recently seen here in our facility on October 01, 2024 for same procedure with 4.4 L removed. Patient was seen and evaluated in the ED, laboratory data shows WBC 6.5, hemoglobin 9.9, hematocrit 31.3, platelets [id number], sodium 138, potassium 3.8, BUN 30, creatinine 1.26, GFR 78, glucose 116, total bilirubin 9.6, calcium 8.3, AST 102, ALT 37, albumin 2.8, protein 6.9, lipase 80, blood pressure 122/80, heart rate 94, temperature 98.6 F, O2 saturation 99% on room air. Please see medication orders section in the computer. On my assessment, patient denied chest pain, no headache, no dizziness, no shortness of breath, no abdominal pain, diarrhea, nausea, or vomiting at this moment, no fever, no chills. Patient was admitted further evaluation and medical management. Past Medical History Gallstones, HTN, Liver (cirrhosis w/liver failure ), Seizures Ascites, pancytopenia due to hypersplenism, current umbilical hernia Past Surgical History Hernia Repair, Paracentesis Family History Reviewed, noncontributory to the management of this case. Past Social History The patient lives at home, drinks alcohol heavily, denies smoking or illicit drugs abuse. Review of Systems Constitutional: Yes: Weakness; No: Fever, Chills, Sweats, Malaise, Other Eyes: No: Pain, Vision change, Conjunctivae inflammation, Eyelid inflammation, Other, Redness ENT: No: Ear pain, Ear discharge, Nose pain, Nose discharge, Nose congestion, Mouth pain, Mouth swelling, Throat pain, Throat swelling, Other Respiratory: No: Cough, Dry, Shortness of breath, SOB with excertion, Wheezing, Hemoptysis, Pleuritic Pain, Sputum, Wheezing, Other Cardiovascular: No: Chest Pain, Palpitations, Orthopnea, Paroxysmal Noc. Dyspnea, Edema, Lt Headedness, Other Gastrointestinal: Nausea, Vomiting, Abdominal Pain, Diarrhea, Other (Distended abdomen); No: Constipation, Melena, Hematochezia Genitourinary: No Dysuria, No Frequency, No Incontinence, No Hematuria, No Retention, No Other Musculoskeletal: No: other, neck pain, shoulder pain, arm pain, back pain, hand pain, leg pain, foot pain Skin: No: Rash, Lesions, Jaundice, Bruising, Other Neurological: No: Weakness, Numbness, Incoordination, Change in speech, Confusion, Seizures, Other Allergies: Coded Allergies: NO KNOWN ALLERGIES (Unverified , 01/27/21) Medications Current Medications Medications Dose Ordered Sig/Gretchen Route Start Time Stop Time Status Last Admin Dose Admin Pantoprazole Sodium 40 mg DAILY IV 10/13/24 10:00 Spironolactone 25 mg DAILY PO 10/13/24 10:00 Sodium Chloride 1,000 ml @ 60 mls/hr [id number] IV 10/12/24 20:30 Acetaminophen/ Hydrocodone Bitart 1 tab Q4HP PRN PO 10/12/24 20:30 Ondansetron HCl 4 mg Q4HP PRN IV 10/12/24 20:30 Docusate Sodium 100 mg BIDPRN PRN PO 10/12/24 20:30 Morphine Sulfate 2 mg Q4HPRN PRN IV 10/12/24 20:30 Ferrous Sulfate 325 mg BIDWM PO 10/13/24 08:00 Acetaminophen 650 mg Q6HP PRN PO 10/12/24 20:45 Exam Vital Signs Vital Signs Date Time Temp Pulse Resp B/P (MAP) Pulse Ox O2 Delivery O2 Flow Rate FiO2 10/12/24 19:27 98.6 99 17 122/80 (94) 99 98.6 10/12/24 19:27 Room Air 10/12/24 17:15 0 21 General Appearance: Alert, Oriented X3, Cooperative, No acute distress HEENT: Atraumatic, PERRLA, EOMI, Mucous membr. moist/pink Respiratory: Clear to auscultation, Normal air movement Cardiovascular: Regular rate, Normal S1, Normal S2, No murmurs Abdominal: Normal bowel sounds, Soft, No tenderness, No hepatospenomegaly, No masses Extremities: No clubbing, No cyanosis, No edema, Normal pulses, No tenderness/swelling Skin: No rashes, No breakdown, No significant lesion Neuro: Normal speech, Normal tone, Sensation intact, Cranial nerves 3-12 NL, Reflexes 2+, Other (Generalized weakness) Psych/Mental Status: Mental status NL, Mood NL Labs/Xrays Labs Test 10/12/24 13:37 10/12/24 13:36 Range/Units Sodium Level 138 136-145 mmol/L Potassium Level 3.8 3.5-5.1 mmol/L Chloride Level 106 98-107 mmol/L Carbon Dioxide Level 23 20-31 mmol/L Anion Gap 9 5-15 Blood Urea Nitrogen 30 H 9-23 mg/dL Creatinine 1.26 0.700-1.30 mg/dL Glomerular Filtration Rate Calc 78 >90 mL/min BUN/Creatinine Ratio 23.8 H 10.0-20.0 Serum Glucose 116 H 74-106 mg/dL Calcium Level 8.3 L 8.7-10.4 mg/dL Total Bilirubin 9.6 H 0.2-1.0 mg/dL Aspartate Amino Transferase (AST) 102 H 13-40 U/L Alanine Aminotransferase (ALT) 37 7-40 U/L Alkaline Phosphatase 245 H 46-116 U/L Total Protein 6.9 5.7-8.2 g/dL Albumin 2.8 L 3.2-4.8 g/dL Lipase 80 H 12-53 U/L White Blood Count 6.5 4.4-10.8 10^3/uL Red Blood Count 3.81 L 4.5-5.90 10^6/uL Hemoglobin 9.9 L 13.5-17.5 g/dL Hematocrit 31.3 L 41.0-53.0 % Mean Corpuscular Volume 82.2 80.0-100.0 fL Mean Corpuscular Hemoglobin 26.1 L 28.0-32.0 pg Mean Corpuscular Hemoglobin Concent 31.7 L 32.0-36.0 g/dL Red Cell Distribution Width 33.0 H 11.8-14.3 % Platelet Count 85 L 140-450 10^3/uL Mean Platelet Volume 9.2 6.9-10.8 fL Neutrophils (%) (Auto) 80.4 H 37.0-80.0 % Lymphocytes (%) (Auto) 7.5 L 10.0-50.0 % Monocytes (%) (Auto) 5.2 0.0-12.0 % Eosinophils (%) (Auto) 6.3 0.0-7.0 % Basophils (%) (Auto) 0.6 0.0-2.0 % Neutrophils # (Auto) 5.2 1.6-8.6 10 ^3/uL Lymphocytes # (Auto) 0.5 0.4-5.4 10 ^3/uL Monocytes # (Auto) 0.3 0-1.3 10 ^3/uL Eosinophils # (Auto) 0.4 0-0.8 10 ^3/uL Basophils # (Auto) 0 0-0.2 10 ^3/uL Nucleated Red Blood Cells 0.1 % Platelet Estimate Decreased Anisocytosis (manual) Slight Target Cells Few Assessment/Plan Assessment/Plan Alcoholic cirrhosis of liver with ascites Acute abdominal pain Ascites Liver cirrhosis Thrombocytopenia Anemia, unspecified Generalized weakness Plan 1. Admit to telemetry unit 2. Breathing treatment 3. Pain control management 4. Management of fluids and electrolytes 5. Consultation for hospitalist 6. Diagnostic tests chest x-ray 7. DVT prophylaxis-on SCDs 8. Repeat labs CBC, CMP in a.m. 9. Continue with current medical management 10. Treatment plan discussed with patient and RN. Patient verbalized understanding. Plan discussed with: Patient, Other (RN) My Orders Orders - TEMI ALEGRIA DNP Procedure Category Date Status Time Pantoprazole PHA 10/13/24 In Process (Protonix) 10:00 Spironolactone PHA 10/13/24 In Process (Aldactone) 10:00 Type And Screen BBK 10/12/24 In Process 20:20 Allergies ARACELY 10/12/24 In Process 20:20 Code Status CODE 10/12/24 Transmitted 20:20 Sodium Chloride 0.9% PHA 10/12/24 In Process 20:30 Oxygen Per Hour RT 10/12/24 Transmitted 20:20 Hydrocodone-Acet PHA 10/12/24 In Process 5/325mg Tab ([place] 20:30 Ondansetron Hcl PHA 10/12/24 In Process (Zofran) 20:30 Docusate Sodium PHA 10/12/24 In Process Capsule (Colace 20:30 Complete Blood Count LAB 10/13/24 Verified 04:00 Comprehensive LAB 10/13/24 Verified Metabolic Panel 04:00 Condition: Serious ARACELY 10/12/24 In Process 20:20 Clear Liq Diet DIET 2/15/25 Transmitted Breakfast Bedrest With Bathroom ARACELY 10/12/24 In Process Privileg 20:20 Morphine Sulfate PHA 10/12/24 In Process Injection 20:30 Sequential ARACELY 10/12/24 In Process Compression Device Ferrous Sulfate Tablet PHA 10/13/24 In Process 08:00 Acetaminophen Tablet PHA 10/12/24 In Process (Tylenol Tablet) 20:45 Ammonia LAB 10/12/24 Verified 20:58 Admit ADMIT 10/12/24 Verified 20:58 Nitroglycerin PHA 10/12/24 Verified Sublingual (Ntrostat 21:00 Morphine Sulfate PHA 10/12/24 Verified Injection 21:00 Notify Md Of Changes [facility] 10/12/24 Verified From Base 20:58 Foundry Molder For [facility] 10/12/24 Verified 24 Hours 20:58 Emergency Dysrhythmia [facility] 10/12/24 Verified Protocol 20:58 Rhythm Strips Once [facility] 10/12/24 Verified Every Shift 20:58 Oxygen By Nasal RT 10/12/24 Verified Cannula 20:58 Ibuprofen Tablet [facility] 10/12/24 Verified (Motrin Tablet) 21:00 Problem List: (1) Ascites due to alcoholic cirrhosis (2) Acute abdominal pain (3) Anemia, unspecified (4) Ascites (5) Liver cirrhosis (6) Thrombocytopenia (7) Generalized weakness Date of Service: Oct 12, 2024 Billing Provider: TEMI ALEGRIA DNP Common Visit Codes: [id number] INP/OBS CARE (HIGH) TEMI ALEGRIA DNP Oct 12, 2024 21:21
[2024-10-12 21:47] LABS: INR 1.66 (0.9-1.15); Partial Thromboplastin Time 34.9 SEC (24.5-34.5); Prothrombin Time 16.7 sec (9.3-11.8)
[2024-10-12] MEDS: LACTULOSE 20Gm/30ML SOLN PO SCH (22:19)
[2024-10-13] VITALS (9 sets, daily range): BP systolic 118–133; BP diastolic 73–86; PULSE 68–93; RESP 16–19; TEMP 97.6–98.9; O2SAT 97–100
[2024-10-13] MEDS: cefTRIAXone 2GM/50ML D5W 50 ML IV ONE (01:05)
[2024-10-13] MEDS: MORPHINE SULFATE INJ 2 MG/ml SYRG IV PRN (03:15)
[2024-10-13] MEDS ORDERED: THIA100T10 (04:14)
[2024-10-13] MEDS ORDERED: LISI2.5T47 PO (04:14)
[2024-10-13 07:55] LABS: Alanine Aminotransferase 32 U/L (7-40); Anion Gap 9 (5-15); Carbon Dioxide 22 mmol/L (20-31)
[2024-10-13 07:57] LABS: BUN/Creatinine Ratio 30.4 (10.0-20.0); Glucose 101 mg/dL (74-106)
[2024-10-13 07:59] LABS: Total Protein 6.5 g/dL (5.7-8.2)
[2024-10-13 08:02] LABS: Albumin 2.6 g/dL (3.2-4.8); Alkaline Phosphatase 194 U/L (46-116); Aspartate Aminotransferase 99 U/L (13-40); Bilirubin, Total 9.4 mg/dL (0.2-1.0); Blood Urea Nitrogen 31 mg/dL (9-23); Calcium 8.2 mg/dL (8.7-10.4); Chloride 103 mmol/L (98-107); Sodium 134 mmol/L (136-145)
[2024-10-13 08:13] LABS: Basophils # (auto) 0 10 ^3/uL (0-0.2); Eosinophils # (auto) 0.3 10 ^3/uL (0-0.8); Hemoglobin 9.2 g/dL (13.5-17.5); Lymphocytes # (auto) 0.4 10 ^3/uL (0.4-5.4); Lymphocytes % (auto) 7.4 % (10.0-50.0); Monocytes # (auto) 0.5 10 ^3/uL (0-1.3); Nucleated Red Blood Cells % 0.1 %
[2024-10-13 08:16] LABS: Basophils % (auto) 0.2 % (0.0-2.0); Eosinophils % (auto) 4.6 % (0.0-7.0); Hematocrit 28.3 % (41.0-53.0); Mean Corpuscular Hemoglobin 26.7 pg (28.0-32.0); Mean Corpuscular Hgb Conc. 32.5 g/dL (32.0-36.0); Mean Corpuscular Volume 82.4 fL (80.0-100.0); Monocytes % (auto) 7.8 % (0.0-12.0); Neutrophils # (auto) 4.7 10 ^3/uL (1.6-8.6); Platelet Count (auto) 66 10^3/uL (140-450); Red Blood Cells 3.43 10^6/uL (4.5-5.90); White Blood Cell 5.9 10^3/uL (4.4-10.8)
[2024-10-13] MEDS: FERROUS SULFATE 325mg EC TAB PO SCH (09:53)
[2024-10-13] MEDS: SPIRONOLACTONE 25 MG TAB PO SCH (09:54)
[2024-10-13] MEDS: PANTOPRAZOLE 40 MG/10 ML VIAL INJ IV SCH (09:56)
--- NOTE | 2024-10-13 12:33 | DVHPN2 ---
Reviewed: Care Plan Changes from previous H/P or p: No Changes General: Per HPI Eyes: No Pain, No Vision change, No Conjunctivae inflammation, No Eyelid inflammation, No Other, No Redness ENT: No Ear pain, No Ear discharge, No Nose pain, No Nose discharge, No Nose congestion, No Mouth pain, No Mouth swelling, No Throat pain, No Throat swelling, No Other Cardiovascular: No Chest Pain, No Palpitations, No Orthopnea, No Paroxysmal Noc. Dyspnea, No Edema, No Lt Headedness, No Other Respiratory: No Cough, No Dry, No Shortness of breath, No SOB with excertion, No Wheezing, No Hemoptysis, No Pleuritic Pain, No Sputum, No Other Gastrointestinal: Nausea, Vomiting, Abdominal Pain, Diarrhea; No Constipation, No Melena, No Hematochezia; Other (Distended abdomen) Genitourinary: No Dysuria, No Frequency, No Incontinence, No Hematuria, No Retention, No Other Musculoskeletal: No other, No neck pain, No shoulder pain, No arm pain, No back pain, No hand pain, No leg pain, No foot pain Skin: No Rash, No Lesions, No Jaundice, No Bruising, No Other Objective Vitals Vital Signs Date Time Temp Pulse Resp B/P (MAP) Pulse Ox O2 Delivery O2 Flow Rate FiO2 10/13/24 09:56 73 16 118/82 10/13/24 09:00 97.8 100 97.8 10/13/24 02:58 Room Air* 0 21 Intake/Output Intake and Output 10/13/24 06:59 Intake Total 350 ml Balance 350 ml Intake Oral 300 ml IV Total 50 ml Medications Current Medications Medications Dose Ordered Sig/Gretchen Route Start Time Stop Time Status Last Admin Dose Admin Pantoprazole Sodium 40 mg DAILY IV 10/13/24 10:00 10/13/24 09:56 40 MG Spironolactone 25 mg DAILY PO 10/13/24 10:00 10/13/24 09:54 25 MG Sodium Chloride 1,000 ml @ 60 mls/hr [id number] IV 10/12/24 20:30 Acetaminophen/ Hydrocodone Bitart 1 tab Q4HP PRN PO 10/12/24 20:30 Ondansetron HCl 4 mg Q4HP PRN IV 10/12/24 20:30 Docusate Sodium 100 mg BIDPRN PRN PO 10/12/24 20:30 Morphine Sulfate 2 mg Q4HPRN PRN IV 10/12/24 20:30 10/13/24 09:56 2 MG Ferrous Sulfate 325 mg BIDWM PO 10/13/24 08:00 10/13/24 09:53 325 MG Nitroglycerin 0.4 mg Q5MINP PRN SL 10/12/24 21:00 Morphine Sulfate 2 mg Q30M PRN IV 10/12/24 21:00 Ibuprofen 400 mg Q6HP PRN PO 10/12/24 21:00 Lactulose 30 ml BID PO 10/12/24 22:00 10/13/24 09:56 30 ML Laboratory Results Laboratory Tests 10/13/24 06:20 Chemistry Test 10/12/24 13:37 10/13/24 06:20 Albumin 2.8 g/dL (3.2-4.8) L 2.6 g/dL (3.2-4.8) L Calcium Level 8.3 mg/dL (8.7-10.4) L 8.2 mg/dL (8.7-10.4) L Total Protein 6.9 g/dL (5.7-8.2) 6.5 g/dL (5.7-8.2) Coagulation Test 10/12/24 21:10 Prothrombin Time 16.7 sec (9.3-11.8) H Prothrombin Time INR 1.66 (0.9-1.15) H Activated Partial Thromboplast Time 34.9 SEC (24.5-34.5) H Lipid panel Test 10/12/24 13:37 Lipase 80 U/L (12-53) H LFT Test 10/12/24 13:37 10/13/24 06:20 Alanine Aminotransferase (ALT) 37 U/L (7-40) 32 U/L (7-40) Alkaline Phosphatase 245 U/L (46-116) H 194 U/L (46-116) H Aspartate Amino Transferase (AST) 102 U/L (13-40) H 99 U/L (13-40) H Total Bilirubin 9.6 mg/dL (0.2-1.0) H 9.4 mg/dL (0.2-1.0) H Assessment/Plan Assessment/Plan The patient is a 29-year-old male with past medical history of liver cirrhosis, seizures, hypertension, and gallstones who presented to [facility] ED with complaint of diffuse abdominal pain. Patient reports symptoms progressively get worse with abdominal distention, diarrhea, associated nausea, vomiting, jaundice, getting worse today that prompted this visit. Patient reports he had paracentesis yesterday, recently seen here in our facility on October 01, 2024 for same procedure with 4.4 L removed. Patient was seen and evaluated in the ED, laboratory data shows WBC 6.5, hemoglobin 9.9, hematocrit 31.3, platelets 66800, sodium 138, potassium 3.8, BUN 30, creatinine 1.26, GFR 78, glucose 116, total bilirubin 9.6, calcium 8.3, AST 102, ALT 37, albumin 2.8, protein 6.9, lipase 80, blood pressure 122/80, heart rate 94, temperature 98.6 F, O2 saturation 99% on room air. Please see medication orders section in the computer. On my assessment, patient denied chest pain, no headache, no dizziness, no shortness of breath, no abdominal pain, diarrhea, nausea, or vomiting at this moment, no fever, no chills. Patient was admitted further evaluation and medical management. Alcoholic cirrhosis of liver with ascites Acute abdominal pain Ascites Liver cirrhosis Thrombocytopenia Anemia, unspecified Generalized weakness fluid overload 10/13/2024 pending paracentesis per ID Plan discussed with: Patient Date of Service: Oct 13, 2024 Billing Provider: SHAKILA JURADO DO Common Visit Codes: [id number] INP/OBS CARE(HIGH) SHAKILA JURADO DO Oct 13, 2024 12:33
[2024-10-14] VITALS (8 sets, daily range): BP systolic 105–129; BP diastolic 59–90; PULSE 80–108; RESP 18–20; TEMP 98–99.3; O2SAT 97–100
--- NOTE | 2024-10-14 12:58 | DVHINCON2 ---
Date of service: Oct 14, [address] ramos Reason for Consultation paraacentesis History of Present Illness Pt is a 29 yo male, h/o liver cirrhosis, presented with abd distention, altered MS. Undergoes regular paracentesis. I was asked to do paracent. Family History: Cirrhosis of liver G8 MOTHER Colon cancer G8 FATHER FH: prostate cancer G8 FATHER Hypertension G8 MOTHER G8 FATHER Allergies: Coded Allergies: NO KNOWN ALLERGIES (Unverified , 01/27/21) Home Meds Active Scripts Multiple Vitamins W/ Minerals (Mvi W/ Minerals Tab) 1 Tab Tb, 1 TAB PO DAILY for 30 Days, #30 TAB Prov:DHEERAJ MONTANO MD 09/27/24 Metronidazole (Flagyl) 500 Mg Tab, 500 MG PO TID for 7 Days, #21 TAB Prov:DHEERAJ MOTNANO MD 09/27/24 Spironolactone (Aldactone) 100 Mg Tab, 100 MG PO DAILY for 30 Days, #30 TAB 3 Refills Prov:DHEERAJ MONTANO MD 09/27/24 Furosemide (Lasix) 40 Mg Tab, 40 MG PO QAM for 30 Days, #30 TAB 3 Refills Prov:DHEERAJ MONTANO MD 09/27/24 Pantoprazole Sodium Sesquihydr (Protonix) 40 Mg Tab, 40 MG PO DAILY for 30 Days, #30 TAB 2 Refills Prov:DHEERAJ MONTANO MD 09/27/24 Chlordiazepoxide Hcl (Ni-1) (I (Librium) 10 Mg Cap, 10 MG PO Q6HR PRN for 10 Days, #30 CAP 0 Refills Prov:MARCELO GAFFNEY MD 07/21/24 Spironolactone (Aldactone) 25 Mg Tab, 1 TAB PO DAILY for 30 Days, #30 TAB 5 Refills Prov:JO ELDER MD 11/20/23 Furosemide (Lasix) 40 Mg Tab, 40 MG PO DAILY for 30 Days, #30 TAB Prov:JO ELDER MD 11/20/23 Reported Medications Lisinopril (Lisinopril) 2.5 Mg Tab, 2.5 MG PO DAILY for 30 Days, MG 10/13/24 Thiamine Hcl (VITAMIN B-1) 100 Mg Tb, 1 DAILY 10/13/24 Furosemide (Furosemide) 40 Mg Tab, 40 MG PO DAILY for 30 Days 11/19/23 Discontinued Reported Medications Ferrous Sulfate (FERROUS SULFATE) 324 Mg Tab, 324 MG PO DAILY, TAB 11/19/23 Calcium Carbonate (Calcium Carbonate) 500 Mg Chw, 500 MG PO DAILY, TAB.CHEW 11/19/23 Vital Signs Vital Signs Date Time Temp Pulse Resp B/P (MAP) Pulse Ox O2 Delivery O2 Flow Rate FiO2 10/14/24 10:40 97 18 123/79 10/14/24 09:00 98.4 100 98.4 10/14/24 08:00 Room Air* 0 21 Labs/Diagnostic Data Labs Test 10/13/24 06:20 10/12/24 21:10 10/12/24 20:45 10/12/24 13:37 Range/Units White Blood Count 5.9 4.4-10.8 10^3/uL Red Blood Count 3.43 L 4.5-5.90 10^6/uL Hemoglobin 9.2 L 13.5-17.5 g/dL Hematocrit 28.3 L 41.0-53.0 % Mean Corpuscular Volume 82.4 80.0-100.0 fL Mean Corpuscular Hemoglobin 26.7 L 28.0-32.0 pg Mean Corpuscular Hemoglobin Concent 32.5 32.0-36.0 g/dL Red Cell Distribution Width 33.0 H 11.8-14.3 % Platelet Count 66 L 140-450 10^3/uL Mean Platelet Volume 9.8 6.9-10.8 fL Neutrophils (%) (Auto) 80.0 37.0-80.0 % Lymphocytes (%) (Auto) 7.4 L 10.0-50.0 % Monocytes (%) (Auto) 7.8 0.0-12.0 % Eosinophils (%) (Auto) 4.6 0.0-7.0 % Basophils (%) (Auto) 0.2 0.0-2.0 % Neutrophils # (Auto) 4.7 1.6-8.6 10 ^3/uL Lymphocytes # (Auto) 0.4 0.4-5.4 10 ^3/uL Monocytes # (Auto) 0.5 0-1.3 10 ^3/uL Eosinophils # (Auto) 0.3 0-0.8 10 ^3/uL Basophils # (Auto) 0 0-0.2 10 ^3/uL Nucleated Red Blood Cells 0.1 % Sodium Level 134 L 136-145 mmol/L Potassium Level 4.0 3.5-5.1 mmol/L Chloride Level 103 98-107 mmol/L Carbon Dioxide Level 22 20-31 mmol/L Anion Gap 9 5-15 Blood Urea Nitrogen 31 H 9-23 mg/dL Creatinine 1.02 0.700-1.30 mg/dL Glomerular Filtration Rate Calc 101 >90 mL/min BUN/Creatinine Ratio 30.4 H 10.0-20.0 Serum Glucose 101 74-106 mg/dL Calcium Level 8.2 L 8.7-10.4 mg/dL Total Bilirubin 9.4 H 0.2-1.0 mg/dL Aspartate Amino Transferase (AST) 99 H 13-40 U/L Alanine Aminotransferase (ALT) 32 7-40 U/L Alkaline Phosphatase 194 H 46-116 U/L Total Protein 6.5 5.7-8.2 g/dL Albumin 2.6 L 3.2-4.8 g/dL Prothrombin Time 16.7 H 9.3-11.8 sec Prothrombin Time INR 1.66 H 0.9-1.15 Activated Partial Thromboplast Time 34.9 H 24.5-34.5 SEC Ammonia 41 H 11-32 umol/L Lipase 80 H 12-53 U/L Test 10/12/24 13:36 Range/Units Platelet Estimate Decreased Anisocytosis (manual) Slight Target Cells Few Microbiology Date/Time Source Procedure Growth Status 10/13/24 03:30 Nose MRSA Screen - Final Complete Assessment ascites liver cirrhosis atelectases plan para ARSLAN MILAN MD Oct 14, 2024 12:58
--- NOTE | 2024-10-14 14:21 | DVHOP2 ---
Operative Report us guided paracentesis 2.7 l of fluid drained ARSLAN MILAN MD Oct 14, 2024 14:21
--- NOTE | 2024-10-14 21:17 | DVHPN2 ---
Reviewed: Care Plan, H&P, Labs, Medications, Previous Orders, Radiology Changes from previous H/P or p: No Changes General: Per HPI Eyes: No Pain, No Vision change, No Conjunctivae inflammation, No Eyelid inflammation, No Other, No Redness ENT: No Ear pain, No Ear discharge, No Nose pain, No Nose discharge, No Nose congestion, No Mouth pain, No Mouth swelling, No Throat pain, No Throat swelling, No Other Cardiovascular: No Chest Pain, No Palpitations, No Orthopnea, No Paroxysmal Noc. Dyspnea, No Edema, No Lt Headedness, No Other Respiratory: No Cough, No Dry, No Shortness of breath, No SOB with excertion, No Wheezing, No Hemoptysis, No Pleuritic Pain, No Sputum, No Other Gastrointestinal: Nausea, Vomiting, Abdominal Pain, Diarrhea; No Constipation, No Melena, No Hematochezia; Other (Distended abdomen) Genitourinary: No Dysuria, No Frequency, No Incontinence, No Hematuria, No Retention, No Other Musculoskeletal: No other, No neck pain, No shoulder pain, No arm pain, No back pain, No hand pain, No leg pain, No foot pain Skin: No Rash, No Lesions, No Jaundice, No Bruising, No Other Objective Vitals Vital Signs Date Time Temp Pulse Resp B/P (MAP) Pulse Ox O2 Delivery O2 Flow Rate FiO2 10/14/24 19:46 102 16 129/69 10/14/24 19:30 Room Air* 0 21 10/14/24 17:00 98.8 97 98.8 Intake/Output Intake and Output 10/14/24 07:00 Intake Total 1600 ml Output Total 300 ml Balance 1300 ml Intake Oral 580 ml IV Total 1020 ml Output Urine Total 300 ml Medications Current Medications Medications Dose Ordered Sig/Gretchen Route Start Time Stop Time Status Last Admin Dose Admin Pantoprazole Sodium 40 mg DAILY IV 10/13/24 10:00 10/14/24 09:09 40 MG Spironolactone 25 mg DAILY PO 10/13/24 10:00 10/14/24 09:09 25 MG Sodium Chloride 1,000 ml @ 60 mls/hr [id number] IV 10/12/24 20:30 10/13/24 13:14 60 MLS/HR Acetaminophen/ Hydrocodone Bitart 1 tab Q4HP PRN PO 10/12/24 20:30 Ondansetron HCl 4 mg Q4HP PRN IV 10/12/24 20:30 Docusate Sodium 100 mg BIDPRN PRN PO 10/12/24 20:30 Morphine Sulfate 2 mg Q4HPRN PRN IV 10/12/24 20:30 10/14/24 19:46 2 MG Ferrous Sulfate 325 mg BIDWM PO 10/13/24 08:00 10/14/24 18:15 325 MG Nitroglycerin 0.4 mg Q5MINP PRN SL 10/12/24 21:00 Morphine Sulfate 2 mg Q30M PRN IV 10/12/24 21:00 Ibuprofen 400 mg Q6HP PRN PO 10/12/24 21:00 Lactulose 30 ml BID PO 10/12/24 22:00 10/14/24 19:46 30 ML Laboratory Results Laboratory Tests 10/13/24 06:20 Microbiology Microbiology Date/Time Source Procedure Growth Status 10/13/24 03:30 Nose MRSA Screen - Final Complete Assessment/Plan Assessment/Plan The patient is a 29-year-old male with past medical history of liver cirrhosis, seizures, hypertension, and gallstones who presented to [facility] ED with complaint of diffuse abdominal pain. Patient reports symptoms progressively get worse with abdominal distention, diarrhea, associated nausea, vomiting, jaundice, getting worse today that prompted this visit. Patient reports he had paracentesis yesterday, recently seen here in our facility on October 01, 2024 for same procedure with 4.4 L removed. Patient was seen and evaluated in the ED, laboratory data shows WBC 6.5, hemoglobin 9.9, hematocrit 31.3, platelets 08360, sodium 138, potassium 3.8, BUN 30, creatinine 1.26, GFR 78, glucose 116, total bilirubin 9.6, calcium 8.3, AST 102, ALT 37, albumin 2.8, protein 6.9, lipase 80, blood pressure 122/80, heart rate 94, temperature 98.6 F, O2 saturation 99% on room air. Please see medication orders section in the computer. On my assessment, patient denied chest pain, no headache, no dizziness, no shortness of breath, no abdominal pain, diarrhea, nausea, or vomiting at this moment, no fever, no chills. Patient was admitted further evaluation and medical management. Alcoholic cirrhosis of liver with ascites Acute abdominal pain Ascites Liver cirrhosis Thrombocytopenia Anemia, unspecified Generalized weakness fluid overload 10/13/2024 pending paracentesis per IR 10/14/2024: pulm is completing paracentesis at bedside can be discharged within 24 hours if there is no complication Plan discussed with: Patient My Orders Orders - SHAKILA JURADO DO Procedure Category Date Status Time Cardiac DIET 10/14/24 Transmitted Diet-2gna,Lofat,Lochol Dinner Date of Service: Oct 14, 2024 Billing Provider: SHAKILA JURADO DO Common Visit Codes: [id number] INP/OBS CARE(HIGH) SHAKILA JURADO DO Oct 14, 2024 21:17
[2024-10-15] VITALS (8 sets, daily range): BP systolic 106–127; BP diastolic 67–86; PULSE 73–110; RESP 16–19; TEMP 97.9–98.7; O2SAT 96–100
[2024-10-15 08:42] LABS: Hepatitis B Surface Antigen Negative (Negative)
[2024-10-15 09:01] LABS: Hepatitis C Antibody Negative (Negative)
--- NOTE | 2024-10-15 09:29 | DVH ---
US ABDOMEN LIMITED HISTORY: FLUID CHECK COMPARISON: US ABDOMEN LIMITED on DOS: 09/26/24, US ABDOMEN LIMITED on DOS: 12/15/23 TECHNIQUE: Transverse and longitudinal sonographic images were obtained of all four quadrants of the abdomen and pelvis. FINDINGS: IMPRESSION: There is mild to moderate ascites.
--- NOTE | 2024-10-15 10:19 | DVHPN2 ---
Progress Note Date Seen: Oct 15, 2024 Has the PT tested + for MRSA If YES, has PT been informed?: No Medical Necessity Reason Pt with a Central, PICC or Fol: No Subjective Patient reports: No new complaints Review of Systems: HEENT:Normal, CVS:Normal, RESPIRATORY:Normal, GI:Normal, :Normal, MSK:Normal, NEURO:Normal Objective vital signs Vital Sign Date Time Temp Pulse Resp B/P (MAP) Pulse Ox O2 Delivery O2 Flow Rate FiO2 10/15/24 09:10 85 17 109/72 10/15/24 08:52 98.7 99 98.7 10/15/24 08:00 Room Air* 0 21 Total Intake and Output 10/14/24 10/14/24 10/15/24 15:00 23:00 07:00 Intake Total 230 ml 171 ml 450 ml Output Total 500 ml 200 ml Balance 230 ml -329 ml 250 ml medications Current Medications Medications Dose Ordered Sig/Gretchen Route Start Time Stop Time Status Last Admin Dose Admin Pantoprazole Sodium 40 mg DAILY IV 10/13/24 10:00 10/15/24 09:09 40 MG Spironolactone 25 mg DAILY PO 10/13/24 10:00 10/15/24 09:09 25 MG Sodium Chloride 1,000 ml @ 60 mls/hr [id number] IV 10/12/24 20:30 10/14/24 22:53 60 MLS/HR Acetaminophen/ Hydrocodone Bitart 1 tab Q4HP PRN PO 10/12/24 20:30 Ondansetron HCl 4 mg Q4HP PRN IV 10/12/24 20:30 Docusate Sodium 100 mg BIDPRN PRN PO 10/12/24 20:30 Morphine Sulfate 2 mg Q4HPRN PRN IV 10/12/24 20:30 10/15/24 09:10 2 MG Ferrous Sulfate 325 mg BIDWM PO 10/13/24 08:00 10/15/24 09:09 325 MG Nitroglycerin 0.4 mg Q5MINP PRN SL 10/12/24 21:00 Morphine Sulfate 2 mg Q30M PRN IV 10/12/24 21:00 Ibuprofen 400 mg Q6HP PRN PO 10/12/24 21:00 Lactulose 30 ml BID PO 10/12/24 22:00 10/15/24 09:09 30 ML Examination: GENERAL:Normal, HEENT:Normal, NECK:Normal, LUNGS:Normal, CVS:Normal, ABDOMEN:Normal, ABDOMEN:Abnormal (ascites, umbilical hernia), MSK:Normal, SKIN:Normal, NEURO:Normal, :Normal laboratory and microbiology Laboratory Tests 10/13/24 06:20 Test 10/13/24 06:20 Range/Units Serum Glucose 101 74-106 mg/dL Microbiology Date/Time Source Procedure Growth Status 10/13/24 03:30 Nose MRSA Screen - Final Complete Problem List/Assessment/Plan Problem List/Assessment/Plan * Ascites, status post paracentesis, still distended, radiology eval * Liver cirrhosis with liver failure. 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 * Gallstones. * Umbilical hernia. advance care planning- full code- time spent 18 mins Plan discussed with: Patient My Orders My Orders Orders - DHEERAJ MONTANO MD Procedure Category Date Status Time Pt Request For Service PT 10/15/24 Logged 10:13 Spironolactone PHA 10/16/24 Logged (Aldactone) 10:00 Discontinue Tele ARACELY 10/15/24 In Process 10:10 Urinalysis LAB 10/15/24 Uncollected 10:10 * [employer] CONS 10/15/24 Transmitted Consult Pt Request For Service PT 10/15/24 Logged 10:10 Transfer Orders XFER 10/15/24 Transmitted 10:10 Date of Service: Oct 15, 2024 Billing Provider: DHEERAJ MONTANO MD Common Visit Codes: [id number] INP/OBS CARE(HIGH) Secondary Visit Codes: [id number] CARE PLAN 30 MINUTES DHEERAJ MONTANO MD Oct 15, 2024 10:19
--- NOTE | 2024-10-15 15:48 | DVH ---
US PARACENTESIS, HISTORY: ASCITES PROCEDURE: Informed consent was obtained. The patient was placed in supine position. A limited locali zation ultrasound of the abdomen was obtained, and the skin site over the largest pocket of fluid was marked and entry site was prepped with chlorhexidine which was allowed to dry and draped in the usua l sterile fashion. Time out was performed. Following administration of 1% lidocaine local anesthetic, a 5 Lao centesis needle catheter was percutaneously inserted into the peritoneal collection until fluid was aspirated. The catheter was advanced into the fluid collection and the needle removed. Abo ut 4100 cc of fluid was aspirated and specimen sent for appropriate cultures/cytology/cultures and cy tology. The catheter was then removed and a sterile dressing applied. No immediate complication was identified. FINDINGS: Limited ultrasound imaging demonstrates mild to moderate ascites. Aspirated fluid was clear and serous. IMPRESSION: US-guided paracentesis with 4.1L removed.
[2024-10-15 20:07] LABS: Body Fluid Red Blood Cells 49 CUMM (0-2000); Body Fluid White Blood Cells 146 CUMM (0-200)
[2024-10-15 20:26] LABS: Body Fluid Polymorphonuclear 18 % (0-25)
[2024-10-16 00:57] VITALS: BP 102/59; PULSE 94; RESP 19; TEMP 98.6; O2SAT 98
[2024-10-16 04:56] VITALS: BP 96/65; PULSE 88; RESP 16; TEMP 98.1; O2SAT 98
[2024-10-16 07:12] LABS: Urine Bacteria None Seen /hpf (None Seen)
[2024-10-16 07:30] LABS: Urine Blood Negative /uL (Negative); Urine Clarity Clear (Clear); Urine Color Dark-Yellow (Yellow); Urine Mucus FEW (None Seen); Urine Protein, UAD TRACE (Negative); Urine Specific Gravity 1.035 (1.001-1.035); Urine Squamous Epithelial Cell FEW /hpf (<5); Urine Urobilinogen 2 mg/dL (Negative); Urine WBC 3 /HPF (0-3)
[2024-10-16 08:55] VITALS: BP 122/86; PULSE 100; RESP 18; TEMP 98.1; O2SAT 100
--- NOTE | 2024-10-16 09:48 | DVHDS2 ---
Discharge Summary Date of Admission Oct 12, 2024 at 20:58 Date of Discharge: Oct 16, 2024 Labs/Diagnostic Data: Laboratory Results Test 10/16/24 06:00 10/15/24 18:26 10/13/24 06:20 10/12/24 21:10 Urine Color Dark-yellow (Yellow) Urine Clarity Clear (Clear) Urine pH 6.0 (5.0-9.0) Urine Specific [place] 1.035 (1.001-1.035) Urine Protein Trace (Negative) Urine Ketones Negative (Negative) Urine Blood Negative /uL (Negative) Urine Nitrite Negative (Negative) Urine Bilirubin 2+ (Negative) Urine Urobilinogen 2 mg/dL (Negative) Urine Leukocyte Esterase Negative /uL (Negative) Urine RBC <1 /hpf (0 - 3) Urine Microscopic WBC 3 /HPF (0-3) Urine Squamous Epithelial Cells Few /hpf (<5) Urine Bacteria None seen /hpf (None Seen) Urine Mucus Few (None Seen) Urine Glucose Normal mg/dL (Normal) Body Fluid Source Peritoneal fluid Body Fluid pH 7.0 Body Fluid WBC (Manual) 146 CUMM (0-200) Body Fluid RBC (Manual) 49 CUMM (0-2000) Body Fluid Mononuclear Cells 82 % Body Fluid Polymorphonuclear Cells 18 % (0-25) White Blood Count 5.9 10^3/uL (4.4-10.8) Red Blood Count 3.43 10^6/uL (4.5-5.90) Hemoglobin 9.2 g/dL (13.5-17.5) Hematocrit 28.3 % (41.0-53.0) Mean Corpuscular Volume 82.4 fL (80.0-100.0) Mean Corpuscular Hemoglobin 26.7 pg (28.0-32.0) Mean Corpuscular Hemoglobin Concent 32.5 g/dL (32.0-36.0) Red Cell Distribution Width 33.0 % (11.8-14.3) Platelet Count 66 10^3/uL (140-450) Mean Platelet Volume 9.8 fL (6.9-10.8) Neutrophils (%) (Auto) 80.0 % (37.0-80.0) Lymphocytes (%) (Auto) 7.4 % (10.0-50.0) Monocytes (%) (Auto) 7.8 % (0.0-12.0) Eosinophils (%) (Auto) 4.6 % (0.0-7.0) Basophils (%) (Auto) 0.2 % (0.0-2.0) Neutrophils # (Auto) 4.7 10 ^3/uL (1.6-8.6) Lymphocytes # (Auto) 0.4 10 ^3/uL (0.4-5.4) Monocytes # (Auto) 0.5 10 ^3/uL (0-1.3) Eosinophils # (Auto) 0.3 10 ^3/uL (0-0.8) Basophils # (Auto) 0 10 ^3/uL (0-0.2) Nucleated Red Blood Cells 0.1 % Sodium Level 134 mmol/L (136-145) Potassium Level 4.0 mmol/L (3.5-5.1) Chloride Level 103 mmol/L (98-107) Carbon Dioxide Level 22 mmol/L (20-31) Anion Gap 9 (5-15) Blood Urea Nitrogen 31 mg/dL (9-23) Creatinine 1.02 mg/dL (0.700-1.30) Glomerular Filtration Rate Calc 101 mL/min (>90) BUN/Creatinine Ratio 30.4 (10.0-20.0) Serum Glucose 101 mg/dL (74-106) Calcium Level 8.2 mg/dL (8.7-10.4) Total Bilirubin 9.4 mg/dL (0.2-1.0) Aspartate Amino Transferase (AST) 99 U/L (13-40) Alanine Aminotransferase (ALT) 32 U/L (7-40) Alkaline Phosphatase 194 U/L (46-116) Total Protein 6.5 g/dL (5.7-8.2) Albumin 2.6 g/dL (3.2-4.8) Hepatitis B Surface Antigen Negative (Negative) Hepatitis C Antibody Negative (Negative) Prothrombin Time 16.7 sec (9.3-11.8) Prothrombin Time INR 1.66 (0.9-1.15) Activated Partial Thromboplast Time 34.9 SEC (24.5-34.5) Test 10/12/24 20:45 10/12/24 13:37 10/12/24 13:36 Ammonia 41 umol/L (11-32) Lipase 80 U/L (12-53) Platelet Estimate Decreased Anisocytosis (manual) Slight Target Cells Few Other Laboratory Tests 10/13/24 06:20 Brief Hx & Hospital Course: SEE DICTATED NOTE Condition at Discharge: Fair Final Diagnosis/Problems List LIVER CIRRHOSIS Discharge Disposition: Home Discharge Instruct/Medications Diet: Cardiac 2g Na,low cholest Diet comment: FLUID RESTRICTION TO 1100 CC/DAY Activity: No Restrictions, As Tolerated Follow Up/Referral: FU WITH PCP IN 1 WK Medications: RESUME HOME MEDS Discharge Statement: "Patient was advised to return to the ER or call 911 if any headaches, dizziness, shortness of breath, chest pain, abdominal pain, bleeding, fevers, or worsening of medical condition. Patient was counseled about treatment plan, medications, possible side effects, patientverbalized understanding. All questions were answered to the best of my ability. This discharge took greater then 30 minutes in planning, reviewing documentation, counseling the patient, and discussing with other team members." ASSESSMENT ASSESSMENT Assessment LIVER CIRRHOSIS Date of Service: Oct 16, 2024 Billing Provider: DHEERAJ MONTANO MD Common Visit Codes: [id number]-WCL/OBS DISCH DAY >30min DHEERAJ MONTANO MD Oct 16, 2024 09:48
[2024-10-16] MEDS: SPIRONOLACTONE 25 MG TAB PO SCH (10:16)
--- NOTE | 2024-10-16 10:44 | DVHDS ---
DATE OF DISCHARGE: 10/16/2024 HISTORY OF PRESENT ILLNESS: The patient is a 29-year-old gentleman who was admitted with history of increasing abdominal distention, nausea and vomiting. The patient has history of liver cirrhosis, gallstones and questionable seizures. HOSPITAL COURSE: The patient underwent paracentesis with removal of about 4.1 liters of fluid. The fluid at this time has a white count of 146. The patient's bilirubin was 8.2. The patient was thrombocytopenic. The patient will now be discharged home to resume his home medications and follow up with his primary in 1 week. FINAL DIAGNOSES: Therefore, * Ascites with portal hypertension, status post paracentesis. * Liver cirrhosis with liver failure. * History of alcohol abuse. * Anemia with thrombocytopenia, likely due to hypersplenism. * Gallstones. * Umbilical hernia. Time spent in discharge planning and review of plan with the patient and nursing was 36 minutes. MD JARRED Thomas/BELEN/MICHELLE TID: [id number] RECEIPT: [id number]
[2024-10-16 11:31] VITALS: BP 122/86; PULSE 100; RESP 18; TEMP 98.1; O2SAT 100
[2024-10-17 13:07] LABS: Protein, Body Fluid 0.6 g/dL (.)
== END 2024-10-16 12:04 | disposition home or self-care (01) | DRG 280 ==
LOC: ER 13:13 → CENTRAL 20:57 → OVERFLOW 20:58 → TELE-EAST 10-13 02:55 → TELE-CENTR 10-13 16:58 → CENTRAL 10-15 20:06
PROVIDERS: ADMIT Internal Medicine; ATTEND Internal Medicine
PROC: 0W9G3ZZ Drainage of Peritoneal Cavity, Percutaneous Approach (ICD-10-PCS; principal; 2024-10-14)
PROC: 0W9G3ZZ Drainage of Peritoneal Cavity, Percutaneous Approach (ICD-10-PCS; 2024-10-15)
DX: K70.31 Alcoholic cirrhosis of liver with ascites (principal); D61.818 Other pancytopenia; K72.90 Hepatic failure, unspecified without coma; K76.6 Portal hypertension; E87.70 Fluid overload, unspecified; F10.10 Alcohol abuse, uncomplicated; K80.20 Calculus of gallbladder without cholecystitis without obstruction; K42.9 Umbilical hernia without obstruction or gangrene; D73.1 Hypersplenism; I10 Essential (primary) hypertension; Z79.899 Other long term (current) drug therapy; Z80.0 Family history of malignant neoplasm of digestive organs; Z82.49 Family history of ischemic heart disease and other diseases of the circulatory system; Z80.42 Family history of malignant neoplasm of prostate
CPT/HCPCS: 36415; 49083; 76705; 76942; 80053; 81001; 82140; 83690; 83986; 85025; 85610; 85730; 86803; 86850; 86900; 86901; 87081; 87205; 87340; 89051; 97163; 99291; G0378; J2470

== ENCOUNTER 2024-10-18 12:56 | Inpatient (IN) | payer MEDICAID ==
[~2024-10-18] VITALS: Ht 170.2 cm; Wt 79.0 kg
[~2024-10-18 12:56] MED LIST changes: -CALC500C52 PO; -FERR324T4 PO; +LISI2.5T47 PO; +THIA100T10
--- NOTE | 2024-10-18 13:45 | ED.PDOC ---
GI ASSESSMENT HPI Comments 29y M who presents to the ED via EMS for cheif complaint of abdominal pain. Pt states he has been having abdominal pain for the past 2 days. Pt states the pain is constant, diffusely located, sharp and pressure like in nature, with no associated exacerbating or relieving factors. Pt has no associated symtpoms. Pt states he has history of liver cirrhosis and has noted abdominal distention. Pt states he last had paracentesis 2 days prior. Pt otherwise appears somnolent in the ED. Pt denies any other symptoms at this time. Chief Complaint: Abdominal Pain Time Seen by MD: 13:42 Primary Care Provider: ALYSSA Reviewed Notes: Plasma Processor Notes, Medications, Allergies (No allergies to medications) Allergies: Coded Allergies: NO KNOWN ALLERGIES (Unverified , 01/27/21) Home Meds Active Scripts Multiple Vitamins W/ Minerals (Mvi W/ Minerals Tab) 1 Tab Tb, 1 TAB PO DAILY for 30 Days, #30 TAB Prov:DHEERAJ MONTANO MD 09/27/24 Metronidazole (Flagyl) 500 Mg Tab, 500 MG PO TID for 7 Days, #21 TAB Prov:DHEERAJ MONTANO MD 09/27/24 Spironolactone (Aldactone) 100 Mg Tab, 100 MG PO DAILY for 30 Days, #30 TAB 3 Refills Prov:DHEERAJ MONTANO MD 09/27/24 Furosemide (Lasix) 40 Mg Tab, 40 MG PO QAM for 30 Days, #30 TAB 3 Refills Prov:DHEERAJ MONTANO MD 09/27/24 Pantoprazole Sodium Sesquihydr (Protonix) 40 Mg Tab, 40 MG PO DAILY for 30 Days, #30 TAB 2 Refills Prov:DHEERAJ MONTANO MD 09/27/24 Chlordiazepoxide Hcl (Ni-1) (I (Librium) 10 Mg Cap, 10 MG PO Q6HR PRN for 10 Days, #30 CAP 0 Refills Prov:MARCELO GAFFNEY MD 07/21/24 Spironolactone (Aldactone) 25 Mg Tab, 1 TAB PO DAILY for 30 Days, #30 TAB 5 Refills Prov:JO ELDER MD 11/20/23 Furosemide (Lasix) 40 Mg Tab, 40 MG PO DAILY for 30 Days, #30 TAB Prov:JO ELDER MD 11/20/23 Reported Medications Lisinopril (Lisinopril) 2.5 Mg Tab, 2.5 MG PO DAILY for 30 Days, MG 10/13/24 Thiamine Hcl (VITAMIN B-1) 100 Mg Tb, 1 DAILY 10/13/24 Furosemide (Furosemide) 40 Mg Tab, 40 MG PO DAILY for 30 Days 11/19/23 Discontinued Reported Medications Ferrous Sulfate (FERROUS SULFATE) 324 Mg Tab, 324 MG PO DAILY, TAB 11/19/23 Calcium Carbonate (Calcium Carbonate) 500 Mg Chw, 500 MG PO DAILY, TAB.CHEW 11/19/23 Information Source: Patient Mode of Arrival: EMS Brought in by: EMS Timing: Days Duration: Since onset Prehospital treatment: NTG Quality: Sharp, None (pressure) Vomitus: None Stool: Normal Severity: Moderate Recent: None Recent Hx of: Liver Disease Pain Location: Diffuse Modifying Factors: Nothing Associated sign and symptoms: Abdominal Pain Past Medical History PAST MEDICAL HISTORY: Anxiety, Gallstones, HTN, Liver, Seizures Past Medical History (Other): alcoholic hepatitis, Surgical History: Hernia Repair Family History Family History: Family hx of Cancer Social History Smoker: Non-Smoker Alcohol: Heavy Drugs: Denies Drug Use Lives In: Home Constitutional: reports: malaise; denies: chills, diaphoresis, fatigue, fever, sweats, weakness, others EENTM: denies: blurred vision, double vision, ear bleeding, ear discharge, ear drainage, ear pain, ear ringing, eye pain, eye redness, hearing loss, mouth pain, mouth swelling, nasal discharge, nose bleeding, nose congestion, nose pain, photophobia, tearing, throat pain, throat swelling, voice changes, others Respiratory: denies: cough, hemoptysis, orthopnea, SOB at rest, shortness of breath, SOB with excertion, stridor, wheezing, others Cardiovascular: denies: chest pain, dizzy spells, diaphoresis, Dyspnea on exertion, edema, irregular heart beat, left arm pain, lightheadedness, palpitations, PND, syncope, others Gastrointestinal: reports: abdominal pain; denies: abdomen distended, blood streaked bowels, constipated, diarrhea, dysphagia, difficulty swallowing, hematemesis, melena, nausea, poor appetite, poor fluid intake, rectal bleeding, rectal pain, vomiting, others Genitourinary: denies: burning, dysuria, flank pain, frequency, hematuria, incontinence, penile discharge, penile sore, pain, testicle pain, testicle swelling, urgency, others Neurological: denies: dizziness, fainting, headache, left sided numbness, left sided weakness, numbness, paresthesia, pre-existing deficit, right sided numbness, right sided weakness, seizure, speech problems, tingling, tremors, weakness, others Musculoskeletal: denies: back pain, gout, joint pain, joint swelling, muscle pain, muscle stiffness, neck pain, others Integumetry: denies: bruises, change in color, change in hair/nails, dryness, laceration, lesions, lumps, rash, wounds, others Allergic/Immunocompromised: denies: Difficulty Healing, Frequent Infections, Hives, Itching, others Hematologic/Lymphatic: denies: anemia, blood clots, easy bleeding, easy bruising, swollen glands, others Endocrine: denies: excessive hunger, excessive sweating, excessive thirst, excessive urination, flushing, intolerance to cold, intolerance to heat, unexplained weight gain, unexplained weight loss, others Psychiatric: denies: anxiety, bipolar disorder, depression, hopeless, panic disorder, schizophrenia, sleepless, suicidal, others All Other Systems: Reviewed and Negative Physical Exam General Appearance: Moderate Distress HEENT: Pale Conjuntivae (L), Pale Conjuntivae (R), Pharynx Normal, TMs Normal Neck: Full Range of Motion, Non-Tender, Normal, Normal Inspection Respiratory: Chest Non-Tender, Lungs Clear, No Accessory Muscle Use, No Respiratory Distress, Normal Breath Sounds Cardiovascular: No Edema, No JVD, No Murmur, No Gallop, Normal Peripheral Pu lses, Regular Rate/Rhythm Breast Exam: Deferred Gastrointestinal: Distended, Hepatomegaly, Normal Bowel Sounds Genitalia: Deferred Pelvic: Deferred Rectal: Deferred Extremities: No calf tenderness, Normal capillary refill, Normal inspection, Normal range of motion, Non-tender, No pedal edema Musculoskeletal : Apperance: Normal Neurologic: associate media director II-XII nml as Tested, Motor Weakness, No Sensory Deficits, Other (Lethargic) Cerebellar Function: Normal Reflexes: Normal Skin: Dry, Pallor, Warm Lymphatic: No Adenopathy Was a procedure done? Was a procedure done?: No GI differential Dx Differential Diagnosis: Appendicitis, Gastritis/PUD, Pancreatitis, Other (Liver cirrhosis) Other Differential Diagnosis liver disease, cirrhosis, X-Ray, Labs, Meds, VS Vital Signs Date Time Temp Pulse Resp B/P (MAP) Pulse Ox O2 Delivery O2 Flow Rate FiO2 10/18/24 15:49 95 17 100 Room Air* 0 21 10/18/24 15:16 Room Air* 0 21 10/18/24 15:08 97.3 90 18 100/62 (75) 99 97.3 10/18/24 13:03 97.6 95 18 114/72 (86) 98 Lab Test 10/18/24 15:47 10/18/24 15:17 Range/Units POC Glucose 93 70-106 mg/dl White Blood Count 8.9 # 4.4-10.8 10^3/uL Red Blood Count 3.47 L 4.5-5.90 10^6/uL Hemoglobin 9.7 L 13.5-17.5 g/dL Hematocrit 29.6 L 41.0-53.0 % Mean Corpuscular Volume 85.5 80.0-100.0 fL Mean Corpuscular Hemoglobin 28.1 28.0-32.0 pg Mean Corpuscular Hemoglobin Concent 32.8 32.0-36.0 g/dL Red Cell Distribution Width 33.4 H 11.8-14.3 % Platelet Count 66 L 140-450 10^3/uL Mean Platelet Volume 9.3 6.9-10.8 fL Neutrophils (%) (Auto) 79.0 37.0-80.0 % Lymphocytes (%) (Auto) 6.4 L 10.0-50.0 % Monocytes (%) (Auto) 7.3 0.0-12.0 % Eosinophils (%) (Auto) 7.1 H 0.0-7.0 % Basophils (%) (Auto) 0.2 0.0-2.0 % Neutrophils # (Auto) 7.0 1.6-8.6 10 ^3/uL Lymphocytes # (Auto) 0.6 0.4-5.4 10 ^3/uL Monocytes # (Auto) 0.7 0-1.3 10 ^3/uL Eosinophils # (Auto) 0.6 0-0.8 10 ^3/uL Basophils # (Auto) 0 0-0.2 10 ^3/uL Nucleated Red Blood Cells 0.0 % Platelet Estimate Decreased Hypochromasia (manual) Slight Anisocytosis (manual) Moderate Prothrombin Time 17.2 H 9.3-11.8 sec Prothrombin Time INR 1.71 H 0.9-1.15 Activated Partial Thromboplast Time 35.4 H 24.5-34.5 SEC Sodium Level 136 136-145 mmol/L Potassium Level 4.2 3.5-5.1 mmol/L Chloride Level 104 98-107 mmol/L Carbon Dioxide Level 24 20-31 mmol/L Anion Gap 8 5-15 Blood Urea Nitrogen 25 H 9-23 mg/dL Creatinine 0.99 0.700-1.30 mg/dL Glomerular Filtration Rate Calc 104 >90 mL/min BUN/Creatinine Ratio 25.3 H 10.0-20.0 Serum Glucose 93 74-106 mg/dL Calcium Level 7.8 L 8.7-10.4 mg/dL Total Bilirubin 8.3 H 0.2-1.0 mg/dL Aspartate Amino Transferase (AST) 91 H 13-40 U/L Alanine Aminotransferase (ALT) 39 7-40 U/L Alkaline Phosphatase 181 H 46-116 U/L Ammonia 41 H 11-32 umol/L Total Protein 6.0 5.7-8.2 g/dL Albumin 2.3 L 3.2-4.8 g/dL Lipase 78 H 12-53 U/L The CBC shows anemia with a hemoglobin of 9.7 and hematocrit of 29.6 The chemistry panel is within normal limits The patient was total bilirubin is 8.3 The liver enzymes are elevated in the lipase is 78 We did do an ultrasound for paracentesis which shows ascites and the patient will be scheduled to have the fluid removed The patient was being admitted to the hospitalist The ammonia level is elevated at 41 The patient has hepatic encephalopathy. Time of 1ST Reevaluation: 14:15 Reevaluation 1ST: Unchanged Patient Education/Counseling: Diagnosis, Treatment, Prognosis Family Education/Counseling: No Family Present Departure 1 Departure Time of Disposition: 18:14 Impression: Primary Impression: Hepatic encephalopathy Additional Impressions: Ascites Qualified Codes: K70.31 - Alcoholic cirrhosis of liver with ascites Severe anemia Hyperglycemia Disposition: 09 ADMITTED INPATIENT Admit to: [facility] Condition: Fair Critical Care Note Critical Care Time?: Yes (45 min-critical care time only) Stability Stability form required: Yes Unstable for transfer: Telemetry monitoring (Telemetry monitoring required), ED Physician Assesment (Clinical assesment) Heart Score Heart Score: Heart Score Response (Comments) Value History N/A 0 EKG N/A 0 Age N/A 0 Risk Factors N/A 0 Troponin N/A 0 Total 0 I personally scribed for TATA VIDAL MD ([email or web address]) on 10/18/24 at 13:45. Electronically submitted by Jarred Hernandez ([email or web address]). TATA VIDAL MD Oct 18, 2024 13:45
--- NOTE | 2024-10-18 14:24 | DVH ---
Procedure: US ABDOMEN LIMITED Study Date and Requested Time: 10/18/2024 02:12 PM History: EVAL FOR ASCITES Comparison: US ABDOMEN LIMITED on DOS: 10/15/24, US ABDOMEN LIMITED on DOS: 09/26/24, US ABDOMEN LIMITE D on DOS: 12/15/23 Technique: Multiple high resolution soria-scale images obtained of the abdomen for evaluation of ascit es Findings /impression: There is moderate to large volume ascites over the bilateral lower abdominal quadrants with small to moderate ascites over the right upper abdominal quadrant no significant ascites over the left upper abdominal quadrant.
[2024-10-18 15:49] VITALS: PULSE 95; RESP 17; O2SAT 100
[2024-10-18 15:51] LABS: Basophils # (auto) 0 10 ^3/uL (0-0.2); Basophils % (auto) 0.2 % (0.0-2.0); Eosinophils # (auto) 0.6 10 ^3/uL (0-0.8); Eosinophils % (auto) 7.1 % (0.0-7.0); Hematocrit 29.6 % (41.0-53.0); Hemoglobin 9.7 g/dL (13.5-17.5); Lymphocytes # (auto) 0.6 10 ^3/uL (0.4-5.4); Lymphocytes % (auto) 6.4 % (10.0-50.0); Mean Corpuscular Hemoglobin 28.1 pg (28.0-32.0); Mean Corpuscular Hgb Conc. 32.8 g/dL (32.0-36.0); Mean Corpuscular Volume 85.5 fL (80.0-100.0); Monocytes # (auto) 0.7 10 ^3/uL (0-1.3); Monocytes % (auto) 7.3 % (0.0-12.0); Platelet Count (auto) 66 10^3/uL (140-450); Red Blood Cells 3.47 10^6/uL (4.5-5.90); Red Cell Distribution Width 33.4 % (11.8-14.3); White Blood Cell 8.9 10^3/uL (4.4-10.8)
[2024-10-18 16:06] LABS: Alanine Aminotransferase 39 U/L (7-40); Anion Gap 8 (5-15); BUN/Creatinine Ratio 25.3 (10.0-20.0); Carbon Dioxide 24 mmol/L (20-31); Chloride 104 mmol/L (98-107); Glucose 93 mg/dL (74-106); Potassium 4.2 mmol/L (3.5-5.1); Sodium 136 mmol/L (136-145)
[2024-10-18 16:07] LABS: Albumin 2.3 g/dL (3.2-4.8); Alkaline Phosphatase 181 U/L (46-116); Aspartate Aminotransferase 91 U/L (13-40); Bilirubin, Total 8.3 mg/dL (0.2-1.0); Blood Urea Nitrogen 25 mg/dL (9-23); Calcium 7.8 mg/dL (8.7-10.4); INR 1.71 (0.9-1.15); Lipase 78 U/L (12-53); Partial Thromboplastin Time 35.4 SEC (24.5-34.5); Prothrombin Time 17.2 sec (9.3-11.8)
[2024-10-18 16:15] LABS: Anisocytosis Moderate; Hypochromia Slight; Platelet Estimate Decreased
[2024-10-18 20:05] VITALS: PULSE 95; RESP 13; O2SAT 100
[2024-10-18 23:41] LABS: Triglycerides 75 mg/dL (< 150)
[2024-10-18 23:42] LABS: LDL Cholesterol 35 mg/dL (< 100)
[2024-10-18 23:43] LABS: Cholesterol 78 mg/dL (< 200)
[2024-10-18 23:48] LABS: HDL Cholesterol < 5 mg/dL (40-59)
[2024-10-18 23:50] LABS: Urine Bacteria None Seen /hpf (None Seen)
[2024-10-18] MEDS: LACTULOSE 20Gm/30ML SOLN PO SCH (23:53)
[2024-10-18] MEDS: MIDODRINE HCL 10 MG TAB PO SCH (23:53)
[2024-10-19] MEDS: ALBUMIN 25% 50 ML IV ONE (00:01)
--- NOTE | 2024-10-19 00:12 | DVHHPRES ---
History of Present Illness Resident Creating Document: ISAEL RETANA RESIDENT History of Present Illness This is a 29-year-old male with past medical history of hypertension, liver cirrhosis who presented to the ED due to generalized weakness, abdominal pain and abdominal distention. The patient reported that he had a paracentesis performed two days ago where they removed eight bottles of fluid (this chart reviewed and they removed 2.7 L of fluid). Patient states that he has been feeling generalized weakness, anxiety associated with the abdominal distention and diffuse abdominal tenderness. The patient admits that he used to drink a lot of alcohol 9-12 beers per day but according to him he stopped drinking one month ago. The patient denies fever/chills, chest pain, shortness of breath or abdominal pain at this time. Initial labs showed a WBC of 8.9, hemoglobin 9.7, BNP was grossly unremarkable. Ammonia came back elevated at 41 and lipase as well at 78. AST came back elevated at 91 and ALT 39 in an alcoholic pattern. Ultrasound of the abdomen showed moderate to large volume ascites over the bilateral lower abdominal quadrants. Upon my examination, he is having abdominal distention without significant abdominal tenderness on deep palpation. There is also scleral icterus, clear lungs and rest of physical examination was on normal limits. We will start the patient on midodrine 10 mg t.i.d., furosemide 20 mg orally, spironolactone 50 mg IV daily, one dose of albumin and awaiting paracentesis. We will admit the patient for further assessment and management of acute decompensated liver cirrhosis. Past medical history: Hypertension, liver cirrhosis Surgical history: Umbilical hernia in 2019 Home medications: Lisinopril 10 mg daily, furosemide 40 mg daily, vitamin-C, spironolactone 100 mg daily Cardiovascular: HTN Hepatobiliary: Cirrhosis Past Surgical History: Hernia Repair (The hernia repair in 2019) Family History: None Smoke: No ALCOHOL: heavy (Patient states that he was taking 9-10 beers per day. States he stopped one month ago) Drugs: None Lives: with Family Domestic Violence: Neg Review of Systems Constitutional: Yes: Weakness; No: Fever, Chills, Sweats, Malaise, Other Eyes: No: Pain, Vision change, Conjunctivae inflammation, Eyelid inflammation, Other, Redness ENT: No: Ear pain, Ear discharge, Nose pain, Nose discharge, Nose congestion, Mouth pain, Mouth swelling, Throat pain, Throat swelling, Other Respiratory: No: Cough, Dry, Shortness of breath, SOB with excertion, Wheezing, Hemoptysis, Pleuritic Pain, Sputum, Wheezing, Other Cardiovascular: No: Chest Pain, Palpitations, Orthopnea, Paroxysmal Noc. Dys pnea, Edema, Lt Headedness, Other Gastrointestinal: Other (Abdominal distention and minimal abdominal pain to palpation); No: Nausea, Vomiting, Abdominal Pain, Diarrhea, Constipation, Melena, Hematochezia Genitourinary: No Dysuria, No Frequency, No Incontinence, No Hematuria, No Retention, No Other Musculoskeletal: No: other, neck pain, shoulder pain, arm pain, back pain, hand pain, leg pain, foot pain Skin: No: Rash, Lesions, Jaundice, Bruising, Other Neurological: Weakness; No: Numbness, Incoordination, Change in speech, C onfusion, Seizures, Other Allergies: Coded Allergies: NO KNOWN ALLERGIES (Unverified , 01/27/21) Medications Current Medications Medications Dose Ordered Sig/Gretchen Route Start Time Stop Time Status Last Admin Dose Admin Acetaminophen/ Hydrocodone Bitart 1 tab Q4HP PRN PO 10/18/24 23:30 UNV Exam Vital Signs Vital Signs Date Time Temp Pulse Resp B/P (MAP) Pulse Ox O2 Delivery O2 Flow Rate FiO2 10/18/24 22:00 102 15 103/73 (83) 100 10/18/24 20:05 Room Air* 0 21 10/18/24 15:08 97.3 97.3 General Appearance: Alert, Oriented X3, Cooperative, mild distress HEENT: Atraumatic, PERRLA, EOMI, Mucous membr. moist/pink Respiratory: Clear to auscultation, Normal air movement Cardiovascular: Regular rate, Normal S1, Normal S2, No murmurs Abdominal: Normal bowel sounds, Other (There is severe abdominal distention which is tense on palpation. With moderate to large ascitic fluid with positive wave sign) Extremities: No clubbing, No cyanosis, No edema, Normal pulses, No tenderness/swelling Skin: No rashes, No breakdown, No significant lesion Neuro: Normal gait, Normal speech, Strength at 5/5 X4 ext, Normal tone, Sensation intact, Cranial nerves 3-12 NL, Reflexes 2+ Psych/Mental Status: Mental status NL, Mood NL Labs/Xrays Labs Test 10/18/24 15:47 10/18/24 15:17 Range/Units POC Glucose 93 70-106 mg/dl White Blood Count 8.9 # 4.4-10.8 10^3/uL Red Blood Count 3.47 L 4.5-5.90 10^6/uL Hemoglobin 9.7 L 13.5-17.5 g/dL Hematocrit 29.6 L 41.0-53.0 % Mean Corpuscular Volume 85.5 80.0-100.0 fL Mean Corpuscular Hemoglobin 28.1 28.0-32.0 pg Mean Corpuscular Hemoglobin Concent 32.8 32.0-36.0 g/dL Red Cell Distribution Width 33.4 H 11.8-14.3 % Platelet Count 66 L 140-450 10^3/uL Mean Platelet Volume 9.3 6.9-10.8 fL Neutrophils (%) (Auto) 79.0 37.0-80.0 % Lymphocytes (%) (Auto) 6.4 L 10.0-50.0 % Monocytes (%) (Auto) 7.3 0.0-12.0 % Eosinophils (%) (Auto) 7.1 H 0.0-7.0 % Basophils (%) (Auto) 0.2 0.0-2.0 % Neutrophils # (Auto) 7.0 1.6-8.6 10 ^3/uL Lymphocytes # (Auto) 0.6 0.4-5.4 10 ^3/uL Monocytes # (Auto) 0.7 0-1.3 10 ^3/uL Eosinophils # (Auto) 0.6 0-0.8 10 ^3/uL Basophils # (Auto) 0 0-0.2 10 ^3/uL Nucleated Red Blood Cells 0.0 % Platelet Estimate Decreased Hypochromasia (manual) Slight Anisocytosis (manual) Moderate Prothrombin Time 17.2 H 9.3-11.8 sec Prothrombin Time INR 1.71 H 0.9-1.15 Activated Partial Thromboplast Time 35.4 H 24.5-34.5 SEC Sodium Level 136 136-145 mmol/L Potassium Level 4.2 3.5-5.1 mmol/L Chloride Level 104 98-107 mmol/L Carbon Dioxide Level 24 20-31 mmol/L Anion Gap 8 5-15 Blood Urea Nitrogen 25 H 9-23 mg/dL Creatinine 0.99 0.700-1.30 mg/dL Glomerular Filtration Rate Calc 104 >90 mL/min BUN/Creatinine Ratio 25.3 H 10.0-20.0 Serum Glucose 93 74-106 mg/dL Calcium Level 7.8 L 8.7-10.4 mg/dL Total Bilirubin 8.3 H 0.2-1.0 mg/dL Aspartate Amino Transferase (AST) 91 H 13-40 U/L Alanine Aminotransferase (ALT) 39 7-40 U/L Alkaline Phosphatase 181 H 46-116 U/L Ammonia 41 H 11-32 umol/L Total Protein 6.0 5.7-8.2 g/dL Albumin 2.3 L 3.2-4.8 g/dL Lipase 78 H 12-53 U/L Assessment/Plan Assessment/Plan Assessment/plan Acute decompensated liver cirrhosis with ascites (likely alcoholic) Acute transaminitis likely due to above Possible acute pancreatitis -MELD Na SCORE 21 POINTS, 19.6% ESTIMATED 3-MONTH MORTALITY. CHILD-HENRY SCORE: 12 POINTS, CLASS C -patient initially was complaining of abdominal distention, generalized weakness -abdominal ultrasound showed moderate to large volume ascites over the bilateral lower abdominal quadrants -Liver enzymes were AST 91 and ALT 39 in a alcoholic pattern -Lipase slightly elevated at 78 -blood pressure is running in the lower side -start midodrine 10 mg t.i.d. -give one dose of IV albumin -spironolactone 50 mg IV daily, progress to 100 mg once blood pressure slightly more stable -furosemide 20 mg p.o. daily, increased to 40 mg once blood pressure slightly more stable -low-sodium diet less than 2 g daily -strict in's and out, limiting fluid intake -consulted interventional radiologist for paracentesis Acute metabolic encephalopathy due to decompensated liver cirrhosis -ammonia levels were 41 -start lactulose 30 cc b.i.d. Acute normocytic normochromic anemia R/O variceal varices -patient reported previous episodes of small tinged blood on previous admissions but denies any recent episode of hematemesis or bleeding -ordered stool blood occult test -ordered iron panel and ferritin -monitor hemoglobin and hematocrit Alcohol abuser -encouraged alcohol cessation for at least 8 minutes. Patient states that he stopped alcohol one month ago Primary hypertension -currently blood pressure in the lower side -hold lisinopril and other blood pressure medications at this time -monitor BP closely Goals of care discussed with the patient at bedside for >30min, FULL CODE Plan discussed with Dr. Morgan Plan discussed with: Patient My Orders Orders - ISAEL RETANA Procedure Category Date Status Time Admit ADMIT 10/18/24 Transmitted 23:17 Code Status CODE 10/18/24 Transmitted 23:17 Vital Signs ARACELY 10/18/24 In Process 23:17 Review Orders With [facility] 10/18/24 In Process Adm. 23:17 Notify Md Of Changes ARACELY 10/18/24 In Process From Base 23:17 Advance Directive ARACELY 10/18/24 In Process 23:17 Urinalysis LAB 10/18/24 Logged 23:17 Complete Blood Count LAB 10/19/24 Verified 04:00 Lipid Panel LAB 10/18/24 In Process 23:17 Urine Bacterial [place] 10/18/24 Logged Culture 23:17 Patient Condition ORDERS 10/18/24 Transmitted 23:17 Allergies ARACELY 10/18/24 In Process 23:17 Hydrocodone-Acet PHA 10/18/24 Logged 5/325mg Tab ([place] 23:30 Drug Screen LAB 10/18/24 Logged 23:17 Hemoglobin A1c LAB 10/18/24 In Process 23:17 Electrocardigram EKG 10/18/24 Logged 23:17 Midodrine Tablet PHA 10/18/24 Transmitted (Proamatine Tablet) 23:30 Albumin Ivpb PHA 10/18/24 Transmitted 23:30 Spironolactone PHA 10/19/24 Transmitted (Aldactone) 10:00 Furosemide Tablet PHA 10/19/24 Transmitted (Lasix Tablet) 01:00 Lactulose Oral PHA 10/18/24 Transmitted 23:30 2 Gm Sodium Diet DIET 10/19/24 Transmitted Breakfast Stool Occult Blood LAB 10/18/24 Transmitted 23:22 Strict I & O ARACELY 10/18/24 Transmitted 23:22 PTPTT LAB 10/18/24 Transmitted 23:22 Date of Service: Oct 18, 2024 Billing Provider: MANJU MORGAN MD Common Visit Codes: [id number] INP/OBS CARE (HIGH) ISAEL RETANA RESIDENT Oct 19, 2024 00:12 MANJU MORGAN MD Oct 19, 2024 11:27
[2024-10-19 00:38] LABS: % Iron Saturation 28.7 % (20-55)
[2024-10-19 01:02] LABS: INR 1.55 (0.9-1.15); Partial Thromboplastin Time 34.6 SEC (24.5-34.5); Prothrombin Time 15.7 sec (9.3-11.8)
[2024-10-19 01:03] LABS: Urine Blood Negative /uL (Negative); Urine Clarity Turbid (Clear); Urine Color Dark-Yellow (Yellow); Urine Mucus FEW (None Seen); Urine Protein, UAD Negative (Negative); Urine Squamous Epithelial Cell FEW /hpf (<5); Urine Urobilinogen 2 mg/dL (Negative); Urine WBC 4 /HPF (0-3); Urine pH 5.5 (5.0-9.0)
[2024-10-19] MEDS: FUROSEMIDE 20 MG TAB PO SCH (01:16)
[2024-10-19 01:36] LABS: Amphetamine Screen, Urine Neg (NEGATIVE); Barbiturate Scree,Urine Neg (NEGATIVE); Benzodiazephine Screen, Urine Pos (NEGATIVE); Cannabinoid Screen, Urine Neg (NEGATIVE); Cocaine Screen, Urine Neg (NEGATIVE); Opiate Scree,Urine Pos (NEGATIVE); Phencyclidine Screen, Urine Neg (NEGATIVE)
[2024-10-19] MEDS: HYDROcodone-ACET 5/325MG TAB PO PRN (04:24)
[2024-10-19 05:17] LABS: Basophils # (auto) 0 10 ^3/uL (0-0.2); Basophils % (auto) 0.1 % (0.0-2.0); Eosinophils # (auto) 0.5 10 ^3/uL (0-0.8); Eosinophils % (auto) 5.7 % (0.0-7.0); Hematocrit 29.7 % (41.0-53.0); Hemoglobin 9.6 g/dL (13.5-17.5); Lymphocytes # (auto) 0.5 10 ^3/uL (0.4-5.4); Lymphocytes % (auto) 5.4 % (10.0-50.0); Mean Corpuscular Hemoglobin 28.3 pg (28.0-32.0); Mean Corpuscular Hgb Conc. 32.4 g/dL (32.0-36.0); Mean Corpuscular Volume 87.3 fL (80.0-100.0); Monocytes # (auto) 0.8 10 ^3/uL (0-1.3); Monocytes % (auto) 8.3 % (0.0-12.0); Neutrophils # (auto) 7.3 10 ^3/uL (1.6-8.6); Neutrophils % (auto) 80.5 % (37.0-80.0); Nucleated Red Blood Cells % 0.1 %; Platelet Count (auto) 72 10^3/uL (140-450); Red Cell Distribution Width 33.9 % (11.8-14.3); White Blood Cell 9.1 10^3/uL (4.4-10.8)
[2024-10-19 05:49] LABS: Alanine Aminotransferase 36 U/L (7-40); Anion Gap 9 (5-15); Carbon Dioxide 21 mmol/L (20-31); Chloride 106 mmol/L (98-107); Glucose 91 mg/dL (74-106); Potassium 4.5 mmol/L (3.5-5.1); Sodium 136 mmol/L (136-145)
[2024-10-19 05:50] LABS: Total Protein 6.3 g/dL (5.7-8.2)
[2024-10-19 06:01] LABS: Alkaline Phosphatase 182 U/L (46-116); Aspartate Aminotransferase 83 U/L (13-40); Bilirubin, Total 9.3 mg/dL (0.2-1.0); Calcium 8.2 mg/dL (8.7-10.4)
[2024-10-19 06:02] LABS: Albumin 2.4 g/dL (3.2-4.8)
[2024-10-19 06:04] LABS: BUN/Creatinine Ratio 25.3 (10.0-20.0); Blood Urea Nitrogen 20 mg/dL (9-23)
[2024-10-19 06:30] LABS: Anisocytosis Marked; Platelet Estimate Decreased
[2024-10-19 07:50] VITALS: PULSE 91; RESP 16; TEMP 98.7; O2SAT 97
--- NOTE | 2024-10-19 09:01 | DVH ---
US PARACENTESIS, HISTORY: ASCITES PROCEDURE: Informed consent was obtained. The patient was placed in supine position. A limited locali zation ultrasound of the abdomen was obtained, and the skin site over the largest pocket of fluid was marked and entry site was prepped with chlorhexidine which was allowed to dry and draped in the usua l sterile fashion. Time out was performed. Following administration of 1% lidocaine local anesthetic, a 5 [place] centesis needle catheter was percutaneously inserted into the peritoneal collection until fluid was aspirated. The catheter was advanced into the fluid collection and the needle removed. Abo ut 4400 cc of fluid was aspirated . The catheter was then removed and a sterile dressing applied. No immediate complication was identified. FINDINGS: Limited ultrasound imaging demonstrates moderate ascites. Aspirated fluid was clear and ser ous. IMPRESSION: US-guided paracentesis with 4.4L removed.
[2024-10-19] MEDS: SPIRONOLACTONE 25 MG TAB PO SCH (10:08)
[2024-10-19 11:13] LABS: Body Fluid Polymorphonuclear 21 % (0-25); Body Fluid Red Blood Cells 60 CUMM (0-2000); Body Fluid White Blood Cells 130 CUMM (0-200)
[2024-10-19] MEDS ORDERED: LACT10PA2 PO ×2 (14:25→17:11)
--- NOTE | 2024-10-19 15:54 | DVHDSRES ---
Discharge Summary Date of Admission Resident Creating Document: WILL SHIELDS RESIDENT Oct 18, 2024 at 23:17 Date of Discharge: Oct 19, 2024 Labs/Diagnostic Data: Laboratory Results Test 10/19/24 09:00 10/19/24 08:59 10/19/24 04:40 10/18/24 23:43 Body Fluid Source Peritoneal fluid Body Fluid pH 8.0 Body Fluid WBC (Manual) 130 CUMM (0-200) Body Fluid RBC (Manual) 60 CUMM (0-2000) Body Fluid Mononuclear Cells 79 % Body Fluid Polymorphonuclear Cells 21 % (0-25) Ammonia 106 umol/L (11-32) White Blood Count 9.1 10^3/uL (4.4-10.8) Red Blood Count 3.40 10^6/uL (4.5-5.90) Hemoglobin 9.6 g/dL (13.5-17.5) Hematocrit 29.7 % (41.0-53.0) Mean Corpuscular Volume 87.3 fL (80.0-100.0) Mean Corpuscular Hemoglobin 28.3 pg (28.0-32.0) Mean Corpuscular Hemoglobin Concent 32.4 g/dL (32.0-36.0) Red Cell Distribution Width 33.9 % (11.8-14.3) Platelet Count 72 10^3/uL (140-450) Mean Platelet Volume 8.9 fL (6.9-10.8) Neutrophils (%) (Auto) 80.5 % (37.0-80.0) Lymphocytes (%) (Auto) 5.4 % (10.0-50.0) Monocytes (%) (Auto) 8.3 % (0.0-12.0) Eosinophils (%) (Auto) 5.7 % (0.0-7.0) Basophils (%) (Auto) 0.1 % (0.0-2.0) Neutrophils # (Auto) 7.3 10 ^3/uL (1.6-8.6) Lymphocytes # (Auto) 0.5 10 ^3/uL (0.4-5.4) Monocytes # (Auto) 0.8 10 ^3/uL (0-1.3) Eosinophils # (Auto) 0.5 10 ^3/uL (0-0.8) Basophils # (Auto) 0 10 ^3/uL (0-0.2) Nucleated Red Blood Cells 0.1 % Platelet Estimate Decreased Anisocytosis (manual) Marked [place] Cells Moderate Sodium Level 136 mmol/L (136-145) Potassium Level 4.5 mmol/L (3.5-5.1) Chloride Level 106 mmol/L (98-107) Carbon Dioxide Level 21 mmol/L (20-31) Anion Gap 9 (5-15) Blood Urea Nitrogen 20 mg/dL (9-23) Creatinine 0.79 mg/dL (0.700-1.30) Glomerular Filtration Rate Calc 122 mL/min (>90) BUN/Creatinine Ratio 25.3 (10.0-20.0) Serum Glucose 91 mg/dL (74-106) Calcium Level 8.2 mg/dL (8.7-10.4) Total Bilirubin 9.3 mg/dL (0.2-1.0) Aspartate Amino Transferase (AST) 83 U/L (13-40) Alanine Aminotransferase (ALT) 36 U/L (7-40) Alkaline Phosphatase 182 U/L (46-116) Total Protein 6.3 g/dL (5.7-8.2) Albumin 2.4 g/dL (3.2-4.8) Prothrombin Time 15.7 sec (9.3-11.8) Prothrombin Time INR 1.55 (0.9-1.15) Activated Partial Thromboplast Time 34.6 SEC (24.5-34.5) Iron Level 56 ug/dL (65-175) Total Iron Binding Capacity 195 ug/dL (250-425) Percent Iron Saturation 28.7 % (20-55) Ferritin 63.9 ng/mL (22-322) Direct Bilirubin 6.5 mg/dL (<0.3) Test 10/18/24 23:40 10/18/24 15:47 10/18/24 15:17 Urine Color Dark-yellow (Yellow) Urine Clarity Turbid (Clear) Urine pH 5.5 (5.0-9.0) Urine Specific Otis 1.030 (1.001-1.035) Urine Protein Negative (Negative) Urine Ketones Negative (Negative) Urine Blood Negative /uL (Negative) Urine Nitrite Negative (Negative) Urine Bilirubin 1+ (Negative) Urine Urobilinogen 2 mg/dL (Negative) Urine Leukocyte Esterase Negative /uL (Negative) Urine RBC 1 /hpf (0 - 3) Urine Microscopic WBC 4 /HPF (0-3) Urine Squamous Epithelial Cells Few /hpf (<5) Urine Bacteria None seen /hpf (None Seen) Urine Mucus Few (None Seen) Urine Glucose Normal mg/dL (Normal) Urine Opiates Screen Pos (NEGATIVE) Urine Fentanyl Screen Neg (NEGATIVE) Urine Barbiturates Screen Neg (NEGATIVE) Urine Phencyclidine Screen Neg (NEGATIVE) Urine Amphetamines Screen Neg (NEGATIVE) Urine Benzodiazepines Screen Pos (NEGATIVE) Urine Cocaine Screen Neg (NEGATIVE) Urine Cannabinoids Screen Neg (NEGATIVE) POC Glucose 93 mg/dl (70-106) Hypochromasia (manual) Slight Hemoglobin A1c < 5.7 % A1C (<5.7) Triglycerides Level 75 mg/dL (< 150) Cholesterol Level 78 mg/dL (< 200) LDL Cholesterol 35 mg/dL (< 100) HDL Cholesterol < 5 mg/dL (40-59) Lipase 78 U/L (12-53) Other Laboratory Tests 10/19/24 04:40 Brief Hx & Hospital Course: This is a 29-year-old male with past medical history of hypertension, liver cirrhosis who presented to the ED due to generalized weakness, abdominal pain and abdominal distention. The patient reported that he had a paracentesis performed two days ago where they removed eight bottles of fluid (this chart reviewed and they removed 2.7 L of fluid). Patient states that he has been feeling generalized weakness, anxiety associated with the abdominal distention and diffuse abdominal tenderness. The patient admits that he used to drink a lot of alcohol 9-12 beers per day but according to him he stopped drinking one month ago. The patient denies fever/chills, chest pain, shortness of breath or abdominal pain at this time. Initial labs showed a WBC of 8.9, hemoglobin 9.7, BNP was grossly unremarkable. Ammonia came back elevated at 41 and lipase as well at 78. AST came back elevated at 91 and ALT 39 in an alcoholic pattern. Ultrasound of the abdomen showed moderate to large volume ascites over the bilateral lower abdominal quadrants. Upon my examination, he is having abdominal distention without significant abdominal tenderness on deep palpation. There is also scleral icterus, clear lungs and rest of physical examination was on normal limits. We will start the patient on midodrine 10 mg t.i.d., furosemide 20 mg orally, spironolactone 50 mg IV daily, one dose of albumin and awaiting paracentesis. We will admit the patient for further assessment and management of acute decompensated liver cirrhosis. During the hospitalization, patient was diagnosed with Acute decompensated liver cirrhosis with ascites (likely alcoholic) along with acute transaminitis,MELD Na SCORE 21 POINTS, 19.6% ESTIMATED 3-MONTH MORTALITY. CHILD-HENRY SCORE: 12 POINTS, CLASS C .Abdominal ultrasound showed moderate to large volume ascites over the bilateral lower abdominal quadrants, liver enzymes were AST 91 and ALT 39 in a alcoholic pattern. Lipase slightly elevated at 78. Patient received 1 dose of IV albumin, midodrine 10 mg TID, spironolactone 50 mg IV daily, furosemide 20 mg p.o. daily given the against blood pressure on the lower normal side. Strict in and outs were maintained along with limited fluid intake. IR was consulted and paracentesis was performed 10/19, 4400ml of cloudy yellow fluid removed, fluid studies performed, ruled out SBP given the PMN count was 27. His ammonia levels were 41, face started on lactulose 30 cc b.i.d., patient had bowel movement. He was advised regarding eating low-salt diet along with with the alcohol for at least 24 minutes. Patient was advised to follow up with Dr. Isaac TREVINO as outpatient as he does not have an doctor chiropractic. He was also advised to take lactulose 30 mL t.i.d.. 10/19/2024 patient is hemodynamically stable, clinically stable and is therefore being discharged home on his home medications. Patient agreed to the discharge planning. Discharge diagnosis: Acute decompensated liver cirrhosis with ascites (likely alcoholic) Acute transaminitis likely due to above Ruled out acute pancreatitis Acute metabolic encephalopathy due to decompensated liver cirrhosis Acute normocytic normochromic anemia Ruled out variceal bleeding at this time Chronic alcoholic dependence Primary hypertension Consults/Reason for consult IR consulted for paracentesis Operations or Procedures Procedure: US ABDOMEN LIMITED Study Date and Requested Time: 10/18/2024 02:12 PM History: EVAL FOR ASCITES Comparison: US ABDOMEN LIMITED on DOS: 10/15/24, US ABDOMEN LIMITED on DOS: 09/26/24, US ABDOMEN LIMITED on DOS: 12/15/23 Technique: Multiple high resolution soria-scale images obtained of the abdomen for evaluation of ascites Findings /impression: There is moderate to large volume ascites over the bilateral lower abdominal quadrants with small to moderate ascites over the right upper abdominal quadrant no significant ascites over the left upper abdominal quadrant. ATED BY: KAT HUDSON DO DICTATED DATE/TIME: 10/18/241420 SIGNED BY: KAT HUDSON DO SIGNED DATE/TIME: 10/18/24 142 CC: Condition at Discharge: Guarded Final Diagnosis/Problems List Acute decompensated liver cirrhosis with ascites (likely alcoholic) Acute transaminitis likely due to above Ruled out acute pancreatitis Acute metabolic encephalopathy due to hyperammonemia Acute normocytic normochromic anemia Ruled out variceal bleeding at this time Chronic alcoholic dependence Primary hypertension Discharge Disposition: Home Discharge Instruct/Medications Diet: Cardiac 2g Na,low cholest Diet comment: low sodium diet Activity: No Restrictions, As Tolerated Follow Up/Referral: Follow up with primary care physician within 7 days Follow up with DC clinic within 7 days Medications: Per EMR Discharge Statement: "Patient was advised to return to the ER or call 911 if any headaches, dizziness, shortness of breath, chest pain, abdominal pain, bleeding, fevers, or worsening of medical condition. Patient was counseled about treatment plan, medications, possible side effects, patientverbalized understanding. All questions were answered to the best of my ability. This discharge took greater then 30 minutes in planning, reviewing documentation, counseling the patient, and discussing with other team members." ASSESSMENT ASSESSMENT Assessment Acute decompensated liver cirrhosis with ascites (likely alcoholic) Acute transaminitis likely due to above Possible acute pancreatitis Acute metabolic encephalopathy due to decompensated liver cirrhosis Date of Service: Oct 19, 2024 Billing Provider: DEION RIDER MD Common Visit Codes: 54774-SNU/OBS DISCH DAY >30min WILL SHIELDS Oct 19, 2024 15:53 DEION RIDER MD Oct 23, 2024 23:56
[2024-10-19 18:06] VITALS: BP 120/82; PULSE 102; RESP 16; O2SAT 99
[2024-10-20 13:07] LABS: Protein, Body Fluid 0.4 g/dL (.)
== END 2024-10-19 18:15 | disposition home or self-care (01) | DRG 280 ==
LOC: ER 12:56 → EDUNIT# 12:56 → EDBD 12:56 → OVERFLOW 23:17 → UNDODEPER 10-19 17:48
PROVIDERS: ADMIT Student in an Organized Health Care Education/Training Program; ATTEND Student in an Organized Health Care Education/Training Program
PROC: 0W9G3ZZ Drainage of Peritoneal Cavity, Percutaneous Approach (ICD-10-PCS; principal; 2024-10-19)
DX: K70.31 Alcoholic cirrhosis of liver with ascites (principal); G93.41 Metabolic encephalopathy; E44.1 Mild protein-calorie malnutrition; D64.9 Anemia, unspecified; F10.20 Alcohol dependence, uncomplicated; K76.82 Hepatic encephalopathy; F41.9 Anxiety disorder, unspecified; R73.9 Hyperglycemia, unspecified; R74.01 Elevation of levels of liver transaminase levels; I10 Essential (primary) hypertension; Y90.9 Presence of alcohol in blood, level not specified; Z79.899 Other long term (current) drug therapy; Z68.27 Body mass index [BMI] 27.0-27.9, adult
CPT/HCPCS: 36415; 49083; 76705; 76942; 80053; 80061; 80307; 81001; 82140; 82248; 82728; 82962; 83036; 83540; 83550; 83690; 83986; 85025; 85610; 85730; 87086; 87205; 89051; 99291; G0378

== ENCOUNTER 2024-10-25 06:39 | Inpatient (IN) | payer MEDICAID ==
[~2024-10-25] VITALS: Ht 167.6 cm; Wt 75.0 kg
[2024-10-25] VITALS (43 sets, daily range): BP systolic 83–126; BP diastolic 36–76; PULSE 82–134; RESP 12–31; TEMP 96.8–97.7; O2SAT 98–100
[~2024-10-25 06:39] MED LIST changes: +LACT10PA2 PO
--- NOTE | 2024-10-25 07:10 | ED.PDOC ---
GI ASSESSMENT HPI Comments 29 y/o M, BIBA with PMHX of anxiety, liver ascites, and anxiety presents to the ED for CC of abdominal pain. Per EMS, patient has been experiencing diffuse abdominal pain with associated nausea and vomiting xdays. EMS states, per patient's family patient has not had active vomiting since last night (10/24/24) and has been dry heaving since last episode. EMS endorses on, patient being A&Ox1. EMS denies any other symptoms or PMHX at this time. Chief Complaint: Abdominal Pain Time Seen by MD: 07:00 Primary Care Provider: ALYSSA Reviewed Notes: Nurses Notes, Backing In Machine Tender Notes, Medications, Allergies Allergies: Coded Allergies: NO KNOWN ALLERGIES (Unverified , 01/27/21) Home Meds Active Scripts Lactulose (Lactulose) 10 Gm Chris, 30 GM PO TID for 30 Days, #30 PACK 0 Refills Please take lactulose 30 mL 3 times daily Prov:WILL SHIELDS RESIDENT 10/19/24 Multiple Vitamins W/ Minerals (Mvi W/ Minerals Tab) 1 Tab Tb, 1 TAB PO DAILY for 30 Days, #30 TAB Prov:DHEERAJ MONTANO MD 09/27/24 Metronidazole (Flagyl) 500 Mg Tab, 500 MG PO TID for 7 Days, #21 TAB Prov:DHEERAJ MONTANO MD 09/27/24 Spironolactone (Aldactone) 100 Mg Tab, 100 MG PO DAILY for 30 Days, #30 TAB 3 Refills Prov:DHEERAJ MONTANO MD 09/27/24 Furosemide (Lasix) 40 Mg Tab, 40 MG PO QAM for 30 Days, #30 TAB 3 Refills Prov:DHEERAJ MONTANO MD 09/27/24 Pantoprazole Sodium Sesquihydr (Protonix) 40 Mg Tab, 40 MG PO DAILY for 30 Days, #30 TAB 2 Refills Prov:DHEERAJ MONTANO MD 09/27/24 Chlordiazepoxide Hcl (Ni-1) (I (Librium) 10 Mg Cap, 10 MG PO Q6HR PRN for 10 Days, #30 CAP 0 Refills Prov:MARCELO GAFFNEY MD 07/21/24 Spironolactone (Aldactone) 25 Mg Tab, 1 TAB PO DAILY for 30 Days, #30 TAB 5 Refills Prov:JO ELDER MD 11/20/23 Furosemide (Lasix) 40 Mg Tab, 40 MG PO DAILY for 30 Days, #30 TAB Prov:JO ELDER MD 11/20/23 Reported Medications Carvedilol (Carvedilol) 3.125 Mg Tab, 1 10/25/24 Lisinopril (Lisinopril) 2.5 Mg Tab, 2.5 MG PO DAILY for 30 Days, MG 10/13/24 Thiamine Hcl (VITAMIN B-1) 100 Mg Tb, 1 DAILY 10/13/24 Furosemide (Furosemide) 40 Mg Tab, 40 MG PO DAILY for 30 Days 11/19/23 Information Source: Emergency Med Personnel Mode of Arrival: EMS Timing: Days Duration: Since onset Prehospital treatment: None Quality: None Vomitus: Watery Stool: Normal Severity: Moderate Recent: None Recent Hx of: None Pain Location: Diffuse Modifying Factors: Nothing Associated sign and symptoms: Nausea, Vomiting Past Medical History PAST MEDICAL HISTORY: Anxiety, Gallstones, HTN, Liver, Seizures Surgical History: Hernia Repair Family History Family History: Family hx of Cancer Social History Smoker: Non-Smoker Alcohol: Heavy Drugs: Denies Drug Use Lives In: Home Constitutional: denies: chills, diaphoresis, fatigue, fever, malaise, sweats, weakness, others EENTM: denies: blurred vision, double vision, ear bleeding, ear discharge, ear drainage, ear pain, ear ringing, eye pain, eye redness, hearing loss, mouth pain, mouth swelling, nasal discharge, nose bleeding, nose congestion, nose pain, photophobia, tearing, throat pain, throat swelling, voice changes, others Respiratory: denies: cough, hemoptysis, orthopnea, SOB at rest, shortness of breath, SOB with excertion, stridor, wheezing, others Cardiovascular: denies: chest pain, dizzy spells, diaphoresis, Dyspnea on exertion, edema, irregular heart beat, left arm pain, lightheadedness, palpitations, PND, syncope, others Gastrointestinal: reports: abdominal pain, nausea, vomiting; denies: abdomen distended, blood streaked bowels, constipated, diarrhea, dysphagia, difficulty swallowing, hematemesis, melena, poor appetite, poor fluid intake, rectal blee ding, rectal pain, others Genitourinary: denies: burning, dysuria, flank pain, frequency, hematuria, incontinence, penile discharge, penile sore, pain, testicle pain, testicle swelling, urgency, others Neurological: denies: dizziness, fainting, headache, left sided numbness, left sided weakness, numbness, paresthesia, pre-existing deficit, right sided numbness, right sided weakness, seizure, speech problems, tingling, tremors, weakness, others Musculoskeletal: denies: back pain, gout, joint pain, joint swelling, muscle pain, muscle stiffness, neck pain, others Integumetry: denies: bruises, change in color, change in hair/nails, dryness, laceration, lesions, lumps, rash, wounds, others Allergic/Immunocompromised: denies: Difficulty Healing, Frequent Infections, Hives, Itching, others Hematologic/Lymphatic: denies: anemia, blood clots, easy bleeding, easy bruising, swollen glands, others Endocrine: denies: excessive hunger, excessive sweating, excessive thirst, excessive urination, flushing, intolerance to cold, intolerance to heat, unexplained weight gain, unexplained weight loss, others Psychiatric: denies: anxiety, bipolar disorder, depression, hopeless, panic disorder, schizophrenia, sleepless, suicidal, others All Other Systems: Reviewed and Negative Physical Exam General Appearance: Moderate Distress HEENT: Scleral Icterus (L), Scleral Icterus (R) Neck: Full Range of Motion, Non-Tender, Normal, Normal Inspection Respiratory: Chest Non-Tender, Lungs Clear, No Accessory Muscle Use, No Respiratory Distress, Normal Breath Sounds Cardiovascular: No Edema, No JVD, No Murmur, No Gallop, Normal Peripheral Pulses, Regular Rate/Rhythm Breast Exam: Deferred Gastrointestinal: Distended Genitalia: Deferred Pelvic: Deferred Rectal: Deferred Extremities: No calf tenderness, Normal capillary refill, Normal inspection, Normal range of motion, Non-tender, No pedal edema Musculoskeletal : Apperance: Normal Neurologic: Disoriented Cerebellar Function: NOT DONE Reflexes: NOT DONE Skin: Pallor Lymphatic: No Adenopathy Was a procedure done? Was a procedure done?: Yes Sedation Sedation?: No Central Line Recorder of insertion practice: Repairer Pump Occupation of aoc director combat operations officer: Attending Physician, Name of aoc director combat operations officer (Dr. Canchola) Indication: Hypotension, Suspected infection Room prepared for procedure: Yes Repairer Pump performed hand hygien: Yes Maximal sterile barrier precau: Mask/Eye shield, Sterile gown, Sterlie gloves, Large sterlie drape Skin Preparation: Chlorhexidine gluconate, Providine iodine, Alcohol Skin preparation completely dr: Yes Insertion site: Right, Internal jugular Central line catheter type: [id number] dialysis Number of lumens: 3 Antiseptic ointment applied to: Yes Post Assessment: Chest X-Ray Intubation Indication: Respiratory Insufficiency, Altered Mental Status Pretreated with: Sedation (Etomidate) Medicated with: Vecuronium, Other (Versed) Intubation Approach: Orotracheal Intubation size: cm (8.0) GI differential Dx Differential Diagnosis: Constipation, Diverticular disease, Esophagitis, Gastritis/PUD, Gastroenteritis, Electrolyte Imbalance, Food Poisoning, Ba cterial, Viral X-Ray, Labs, Meds, VS Vital Signs Date Time Temp Pulse Resp B/P (MAP) Pulse Ox O2 Delivery O2 Flow Rate FiO2 10/25/24 08:15 118 18 100 40 10/25/24 08:15 134 17 134/86 (102) 100 10/25/24 08:15 129/75 10/25/24 08:12 118/88 10/25/24 08:00 129/75 10/25/24 08:00 114 10/25/24 08:00 124 15 129/75 (93) 100 10/25/24 07:45 Room Air* 0 21 10/25/24 07:23 108 11 125/79 (94) 100 10/25/24 06:52 98.6 113 18 125/78 (94) 99 Lab Test 10/25/24 07:15 Range/Units White Blood Count 6.2 # 4.4-10.8 10^3/uL Red Blood Count 3.22 L 4.5-5.90 10^6/uL Hemoglobin 9.3 L 13.5-17.5 g/dL Hematocrit 28.6 L 41.0-53.0 % Mean Corpuscular Volume 88.9 80.0-100.0 fL Mean Corpuscular Hemoglobin 28.9 28.0-32.0 pg Mean Corpuscular Hemoglobin Concent 32.5 32.0-36.0 g/dL Red Cell Distribution Width 34.2 H 11.8-14.3 % Platelet Count 103 L 140-450 10^3/uL Mean Platelet Volume 9.7 6.9-10.8 fL Neutrophils (%) (Auto) 76.9 37.0-80.0 % Lymphocytes (%) (Auto) 8.0 L 10.0-50.0 % Monocytes (%) (Auto) 11.1 0.0-12.0 % Eosinophils (%) (Auto) 3.8 0.0-7.0 % Basophils (%) (Auto) 0.2 0.0-2.0 % Neutrophils # (Auto) 4.7 1.6-8.6 10 ^3/uL Lymphocytes # (Auto) 0.5 0.4-5.4 10 ^3/uL Monocytes # (Auto) 0.7 0-1.3 10 ^3/uL Eosinophils # (Auto) 0.2 0-0.8 10 ^3/uL Basophils # (Auto) 0 0-0.2 10 ^3/uL Nucleated Red Blood Cells 0.1 % Prothrombin Time 16.6 H 9.3-11.8 sec Prothrombin Time INR 1.65 H 0.9-1.15 Activated Partial Thromboplast Time 38.4 H 24.5-34.5 SEC Sodium Level 128 #L 136-145 mmol/L Potassium Level 5.2 H 3.5-5.1 mmol/L Chloride Level 101 98-107 mmol/L Carbon Dioxide Level 18 L 20-31 mmol/L Anion Gap 9 5-15 Blood Urea Nitrogen 42 H 9-23 mg/dL Creatinine 1.52 H 0.700-1.30 mg/dL Glomerular Filtration Rate Calc 62 >90 mL/min BUN/Creatinine Ratio 27.6 H 10.0-20.0 Serum Glucose 113 H 74-106 mg/dL Lactic Acid Level 2.6 *H 0.4-2.0 mmol/L Calcium Level 7.8 L 8.7-10.4 mg/dL Total Bilirubin 6.3 H 0.2-1.0 mg/dL Aspartate Amino Transferase (AST) 118 H 13-40 U/L Alanine Aminotransferase (ALT) 51 H 7-40 U/L Alkaline Phosphatase 209 H 46-116 U/L Ammonia 224 *H 11-32 umol/L B-Type Natriuretic Peptide 17.38 0-100 pg/mL Total Protein 5.9 5.7-8.2 g/dL Albumin 2.2 L 3.2-4.8 g/dL Current Medications Medications (Trade) Dose Ordered Sig/Gretchen Route Start Time Stop Time Status Last Admin Etomidate 20 mg ONCE ONCE IV 10/25/24 08:00 10/25/24 08:01 DC 10/25/24 08:09 Midazolam HCl 50 ml @ 1 mls/hr Q24H IV 10/25/24 08:00 10/25/24 17:34 Albuterol (Ventolin Medneb) 20 mg ONCE ONCE NEB 10/25/24 08:00 10/25/24 08:01 DC 10/25/24 09:06 Sodium Bicarbonate 50 ml ONCE ONCE IV 10/25/24 08:00 10/25/24 08:01 DC 10/25/24 10:21 Furosemide (Lasix Injection) 20 mg ONCE ONCE IV 10/25/24 08:00 10/25/24 08:01 DC 10/25/24 09:57 Calcium Gluconate/ Sodium Chloride 50 ml @ 120 mls/hr ONCE ONCE IV 10/25/24 08:00 10/25/24 08:24 DC 10/25/24 09:50 Ceftriaxone Sodium 50 ml @ 100 mls/hr ONCE ONCE IV 10/25/24 08:00 10/25/24 08:29 DC 10/25/24 09:10 Metronidazole 100 ml @ 100 mls/hr ONCE ONCE IV 10/25/24 08:00 10/25/24 08:59 DC 10/25/24 09:23 Rocuronium [place] 50 mg ONCE ONCE IV 10/25/24 08:15 10/25/24 08:16 DC 10/25/24 08:12 Sodium Chloride 1,000 ml @ 100 mls/hr Q10H IV 10/25/24 08:15 10/25/24 13:15 DC 10/25/24 08:15 Patient altered. History of liver disease. Possibly alcohol related. Liver enzymes all elevated. Unable to get history. He is status critical. Potassium elevated pain Sodium is low. Possible sepsis. Severe malnutrition. Had to intubate the patient. Jugular vein place. Waiting for family. Time of 1ST Reevaluation: 07:30 Reevaluation 1ST: Unchanged Patient Education/Counseling: Diagnosis, Treatment Family Education/Counseling: No Family Present Departure 1 Departure Time of Disposition: 07:53 Impression: Primary Impression: Hepatic encephalopathy Additional Impressions: Liver cirrhosis Qualified Codes: K70.31 - Alcoholic cirrhosis of liver with ascites Hyperkalemia Disposition: ADMITTED INPATIENT Admit to: ICU Condition: Guarded Critical Care Note Critical Care Time?: Yes (90 min-critical care time only) Stability Stability form required: No Heart Score Heart Score: Heart Score Response (Comments) Value History N/A 0 EKG N/A 0 Age N/A 0 Risk Factors N/A 0 Troponin N/A 0 Total 0 I personally scribed for REGINA CANCHOLA MD ([email or web address]) on 10/25/24 at 07:10. Electronically submitted by Radha Payton ([email or web address]). I personally scribed for REGINA CANCHOLA MD ([email or web address]) on 10/25/24 at 08:38. Electronically submitted by Radha Payton ([email or web address]). REGINA CANCHOLA MD Oct 25, 2024 07:10
[2024-10-25 07:28] LABS: Basophils # (auto) 0 10 ^3/uL (0-0.2); Basophils % (auto) 0.2 % (0.0-2.0); Eosinophils # (auto) 0.2 10 ^3/uL (0-0.8); Eosinophils % (auto) 3.8 % (0.0-7.0); Hematocrit 28.6 % (41.0-53.0); Hemoglobin 9.3 g/dL (13.5-17.5); Lymphocytes # (auto) 0.5 10 ^3/uL (0.4-5.4); Mean Corpuscular Hemoglobin 28.9 pg (28.0-32.0); Mean Corpuscular Hgb Conc. 32.5 g/dL (32.0-36.0); Mean Corpuscular Volume 88.9 fL (80.0-100.0); Monocytes # (auto) 0.7 10 ^3/uL (0-1.3); Monocytes % (auto) 11.1 % (0.0-12.0); Neutrophils # (auto) 4.7 10 ^3/uL (1.6-8.6); Neutrophils % (auto) 76.9 % (37.0-80.0); Nucleated Red Blood Cells % 0.1 %; Platelet Count (auto) 103 10^3/uL (140-450); Red Blood Cells 3.22 10^6/uL (4.5-5.90); Red Cell Distribution Width 34.2 % (11.8-14.3); White Blood Cell 6.2 10^3/uL (4.4-10.8)
[2024-10-25 07:43] LABS: Alanine Aminotransferase 51 U/L (7-40); Albumin 2.2 g/dL (3.2-4.8); Alkaline Phosphatase 209 U/L (46-116); Anion Gap 9 (5-15); Aspartate Aminotransferase 118 U/L (13-40); BUN/Creatinine Ratio 27.6 (10.0-20.0); Blood Urea Nitrogen 42 mg/dL (9-23); Calcium 7.8 mg/dL (8.7-10.4); Carbon Dioxide 18 mmol/L (20-31); Chloride 101 mmol/L (98-107); Glucose 113 mg/dL (74-106); Potassium 5.2 mmol/L (3.5-5.1); Sodium 128 mmol/L (136-145); Total Protein 5.9 g/dL (5.7-8.2)
[2024-10-25 07:44] LABS: Bilirubin, Total 6.3 mg/dL (0.2-1.0)
[2024-10-25 07:51] LABS: INR 1.65 (0.9-1.15); Partial Thromboplastin Time 38.4 SEC (24.5-34.5); Prothrombin Time 16.6 sec (9.3-11.8)
[2024-10-25 07:52] LABS: Lactic Acid w/Reflex 2.6 mmol/L (0.4-2.0)
[2024-10-25] MEDS: SODIUM ZIRCONIUM CYCL 10 GM PAK PO ONE (08:00)
[2024-10-25] MEDS ORDERED: InsuLIN REG 1unit/0.01ml Soln (100units/ml) IV ONE (08:00)
[2024-10-25] MEDS ORDERED: DEXTROSE (50%) 50ML SYRG IV ONE (08:00)
[2024-10-25] MEDS: MIDAZOLAM DRIP 50 mg/50mL 50 ML IV SCH ×2 (08:00→08:15)
[2024-10-25] MEDS: MIDAZOLAM DRIP 50 mg/50mL 50 ML IV ONE (08:03)
[2024-10-25] MEDS: ETOMIDATE (2MG/ML) 20ML VIAL IV ONE (08:09)
[2024-10-25] MEDS: ROCURONIUM 10MG/ML 10ML VIAL IV ONE ×2 (08:12→08:17)
[2024-10-25] MEDS ORDERED: ONDANSETRON HCL 4 MG/2 ML VIAL IV PRN (08:15)
[2024-10-25] MEDS: SODIUM CHLORIDE 0.9% 1,000 ML IV SCH ×2 (08:15→15:22)
[2024-10-25] MEDS ORDERED: NITROGLYCERIN 0.4 MG SL TAB SL PRN (08:15)
[2024-10-25] MEDS ORDERED: MORPHINE SULFATE INJ 2 MG/ml SYRG IV PRN (08:15)
[2024-10-25] MEDS ORDERED: CARV3.1240 (08:19)
--- NOTE | 2024-10-25 08:28 | DVHHP2 ---
History of Present Illness Reason for Visit: Abdominal pain History of Present Illness Yuriy Nunez is a 29-year-old male with past medical history of hypertension and liver cirrhosis who presents to the ED for abdominal pain. Patient currently being intubated unable to obtain information at this time. Cardiovascular: HTN Hepatobiliary: Cirrhosis Past Surgical History: Other (EGD) Review of Systems Gastrointestinal: Abdominal Pain Allergies: Coded Allergies: NO KNOWN ALLERGIES (Unverified , 01/27/21) Medications Current Medications Medications Dose Ordered Sig/Gretchen Route Start Time Stop Time Status Last Admin Dose Admin Midazolam HCl 50 ml @ 1 mls/hr Q24H IV 10/25/24 08:00 UNV Exam Vital Signs Vital Signs Date Time Temp Pulse Resp B/P (MAP) Pulse Ox O2 Delivery O2 Flow Rate FiO2 10/25/24 08:12 118/88 10/25/24 06:52 98.6 113 18 99 Respiratory: Normal air movement Cardiovascular: Normal S1, Normal S2 Psych/Mental Status: Other (Patient being intubated) Labs/Xrays Labs Test 10/25/24 07:15 Range/Units White Blood Count 6.2 # 4.4-10.8 10^3/uL Red Blood Count 3.22 L 4.5-5.90 10^6/uL Hemoglobin 9.3 L 13.5-17.5 g/dL Hematocrit 28.6 L 41.0-53.0 % Mean Corpuscular Volume 88.9 80.0-100.0 fL Mean Corpuscular Hemoglobin 28.9 28.0-32.0 pg Mean Corpuscular Hemoglobin Concent 32.5 32.0-36.0 g/dL Red Cell Distribution Width 34.2 H 11.8-14.3 % Platelet Count 103 L 140-450 10^3/uL Mean Platelet Volume 9.7 6.9-10.8 fL Neutrophils (%) (Auto) 76.9 37.0-80.0 % Lymphocytes (%) (Auto) 8.0 L 10.0-50.0 % Monocytes (%) (Auto) 11.1 0.0-12.0 % Eosinophils (%) (Auto) 3.8 0.0-7.0 % Basophils (%) (Auto) 0.2 0.0-2.0 % Neutrophils # (Auto) 4.7 1.6-8.6 10 ^3/uL Lymphocytes # (Auto) 0.5 0.4-5.4 10 ^3/uL Monocytes # (Auto) 0.7 0-1.3 10 ^3/uL Eosinophils # (Auto) 0.2 0-0.8 10 ^3/uL Basophils # (Auto) 0 0-0.2 10 ^3/uL Nucleated Red Blood Cells 0.1 % Prothrombin Time 16.6 H 9.3-11.8 sec Prothrombin Time INR 1.65 H 0.9-1.15 Activated Partial Thromboplast Time 38.4 H 24.5-34.5 SEC Sodium Level 128 #L 136-145 mmol/L Potassium Level 5.2 H 3.5-5.1 mmol/L Chloride Level 101 98-107 mmol/L Carbon Dioxide Level 18 L 20-31 mmol/L Anion Gap 9 5-15 Blood Urea Nitrogen 42 H 9-23 mg/dL Creatinine 1.52 H 0.700-1.30 mg/dL Glomerular Filtration Rate Calc 62 >90 mL/min BUN/Creatinine Ratio 27.6 H 10.0-20.0 Serum Glucose 113 H 74-106 mg/dL Lactic Acid Level 2.6 *H 0.4-2.0 mmol/L Calcium Level 7.8 L 8.7-10.4 mg/dL Total Bilirubin 6.3 H 0.2-1.0 mg/dL Aspartate Amino Transferase (AST) 118 H 13-40 U/L Alanine Aminotransferase (ALT) 51 H 7-40 U/L Alkaline Phosphatase 209 H 46-116 U/L Ammonia 224 *H 11-32 umol/L Total Protein 5.9 5.7-8.2 g/dL Albumin 2.2 L 3.2-4.8 g/dL CHEST RADIOGRAPH Indication: SOB; CENTRAL LINE, NG TUBE PLACEMENT Technique: Single frontal view of the chest was obtained Comparison: XY CHEST PORTABLE on DOS: 09/22/24, XY CHEST PORTABLE on DOS: 11/20/23, CHEST PORTABLE on DOS: 01/30/21, CHEST XRAY 1 VIEW on DOS: 01/27/21 FINDINGS: Lines and Tubes: Endotracheal tube at the level of the britta. Retract by 3 cm. Right central venous catheter tip in the SVC. Nasogastric tube is not visualized. Lungs: No focal consolidation. Pleura: No effusion. No pneumothorax. Cardiomediastinal contours: Unremarkable Bones: No acute osseous abnormality. IMPRESSION: Endotracheal tube at the level of the britta. Retract by 3 cm. Right central venous catheter tip in the SVC. Nasogastric tube is not visualized. CLINICAL INFORMATION: 29 years old, Male; abd pain. TECHNIQUE: Axial CT images of the abdomen and pelvis were obtained without IV contrast. Coronal and sagittal reformatted images were obtained, reviewed, and stored. Evaluation of the parenchymal organs is limited without IV contrast. Evaluation of the bowel and mesentery is limited without oral contrast. All CT scans at this medical facility are performed using dose modulation techniques as appropriate to a performed exam including the following: Automated exposure control was utilized; adjustment of the MA and/or KV according to patient size; and use of iterative reconstruction technique. CTDIvol = 18.85 mGy DLP = 1086.26 mGy-cm COMPARISON: CT CT AB PEL WO CON-NO ORAL OR IV on DOS: 09/28/24, CT CT AB PEL WO CON-NO ORAL OR IV on DOS: 12/13/23, CT CT AB PEL WO CON-NO ORAL OR IV on DOS: 11/18/23 FINDINGS: Lung bases: Atelectasis and possible superimposed developing consolidation in the lung bases. Liver: Nodular contour of the liver suggesting cirrhosis. Biliary: Calcified gallstones in the gallbladder neck and possibly extending into the cystic duct. Mildly distended gallbladder with pericholecystic fluid, although may be due to ascites. Spleen: Spleen is enlarged measuring up to 16.1 cm in greatest dimension. Pancreas: Grossly unremarkable in its noncontrast enhanced appearance. Adrenal glands: Unremarkable. No mass. Kidneys: No hydronephrosis. No renal or ureteral calculi. Aorta/Vascular: No aneurysm or significant calcification. Retroperitoneum: No mass or lymphadenopathy. Bowel/mesentery: Moderate abdominal and pelvic ascites. No small bowel obstruction. Appendix is not visualized. Nonspecific areas of colonic wall thickening, may be inflammatory in nature or due to third-spacing of fluid. Moderate stranding adjacent to the rectum, may be seen with proctitis. Prominent gastric varices. Pelvic organs: Grossly unremarkable. Bladder: Unremarkable. No mass. Abdominal wall: Small to moderate umbilical hernia containing ascites. Bones: No acute fracture or suspicious intraosseous lesion. IMPRESSION: 1. Cirrhotic liver morphology with moderate abdominal and pelvic ascites. 2. Splenomegaly. 3. Cholelithiasis. Gallbladder is mildly distended is pericholecystic fluid, although may be due to ascites. Acute cholecystitis not excluded. Correlate with clinical findings. If clinically indicated, ultrasound could be obtained. 4. Findings consistent with proctitis in the appropriate clinical setting. 5. Areas of wall thickening of the colon may be due to inflammatory etiology/c olitis or third-spacing of fluid. Correlate with clinical findings. 6. Additional findings as detailed above. ULTRASOUND ABDOMEN LIMITED INDICATION: r/o cholecystitis TECHNIQUE: Multiple real-time sonographic images of the abdomen were obtained. COMPARISON: US ABDOMEN LIMITED on DOS: 10/18/24, US ABDOMEN LIMITED on DOS: 10/15/24 FINDINGS: The liver demonstrates nodular surface contour and coarsened heterogeneous echotexture suggestive of hepatic cirrhosis. There is no gross evidence of hepatic lesion or intrahepatic biliary ductal dilatation. There is moderate amount of ascites. There is no flow identified in the main portal vein on the current study. There are small gallstones within the gallbladder neck. Gallbladder wall appears thickened. The common bile duct measures 5 mm. The right kidney measures 9.7 cm length. No sonographic evidence of nephrolithiasis or hydronephrosis. Pancreas is obscured by bowel gas. IMPRESSION: 1. The liver demonstrates cirrhotic morphology. There is no gross evidence of a hepatic lesion. There is moderate amount of ascites. There is no flow identified in the main portal vein on the current ultrasound study. 2. There are small gallstones within the gallbladder neck. The gallbladder wall appears thickened. Clinical correlation for cholecystitis is recommended. HS:Y Assessment/Plan Assessment/Plan Assessment/Plan: Intractable abdominal pain Acute respiratory failure - intubated on vent Lactic acidosis likely septic Transaminitis Pancytopenia Hyperammonemia Hyperkalemia Hyponatremia History of liver cirrhosis Moderate abdominal and pelvic ascites Splenomegaly Cholelithiasis ?Acute cholecystitis proctitis Colitis Labs CT abdomen and pelvis ordered IV antibiotics ceftriaxone plus Flagyl Hyperkalemia protocol Lactic ordered Potassium level ordered Chest x-ray ordered On sedation Ammonia levels trend Blood cultures Urine cultures Respiratory culture PT PTT UA Diurese BNP PPIs A.m. labs Lactulose ordered GI consult Antiemetics cxr Pressor US gallbladder US abdominal r/o spontaneous bacterial peritonitis Chronic hypertension Continue home medications FEN/PPX NPO IV fluids Hep-Lock DVT prophylaxis -held thrombocytopenic PUD prophylaxis -Protonix Admit to ICU Continue home medications Discussed plan of care with nurse Plan discussed with: Patient My Orders Orders - ARMAND BENJAMIN Procedure Category Date Status Time Urinalysis LAB 10/25/24 Logged 08:02 Urine Bacterial [place] 10/25/24 Logged Culture 08:02 Date of Service: Oct 25, 2024 Billing Provider: ARMAND BENJAMIN Common Visit Codes: [id number] INP/OBS CARE (HIGH) ARMAND BENJAMIN Oct 25, 2024 08:28
--- NOTE | 2024-10-25 08:49 | DVH ---
CHEST RADIOGRAPH Indication: SOB; CENTRAL LINE, NG TUBE PLACEMENT Technique: Single frontal view of the chest was obtained Comparison: XY CHEST PORTABLE on DOS: 09/22/24, XY CHEST PORTABLE on DOS: 11/20/23, CHEST PORTABLE on D OS: 01/30/21, CHEST XRAY 1 VIEW on DOS: 01/27/21 FINDINGS: Lines and Tubes: Endotracheal tube at the level of the britta. Retract by 3 cm. Right central venous catheter tip in the SVC. Nasogastric tube is not visualized. Lungs: No focal consolidation. Pleura: No effusion. No pneumothorax. Cardiomediastinal contours: Unremarkable Bones: No acute osseous abnormality. IMPRESSION: Endotracheal tube at the level of the britta. Retract by 3 cm. Right central venous catheter tip in the SVC. Nasogastric tube is not visualized.
[2024-10-25] MEDS: cefTRIAXone 1GM/50ML D5W 50 ML IV SCH (09:00)
[2024-10-25] MEDS: ALBUTEROL SULF 2.5 MG/0.5ML(0.5%) NEB SOLN NEB ONE (09:06)
[2024-10-25] MEDS: cefTRIAXone 1GM/50ML D5W 50 ML IV ONE (09:10)
--- NOTE | 2024-10-25 09:15 | DVH ---
CLINICAL INFORMATION: 29 years old, Male; abd pain. TECHNIQUE: Axial CT images of the abdomen and pelvis were obtained without IV contrast. Coronal and s agittal reformatted images were obtained, reviewed, and stored. Evaluation of the parenchymal organs is limited without IV contrast. Evaluation of the bowel and mesentery is limited without oral contras t. All CT scans at this medical facility are performed using dose modulation techniques as appropriat e to a performed exam including the following: Automated exposure control was utilized; adjustment of the MA and/or KV according to patient size; and use of iterative reconstruction technique. CTDIvol = 18.85 mGy DLP = 1086.26 mGy-cm COMPARISON: CT CT AB PEL WO CON-NO ORAL OR IV on DOS: 09/28/24, CT CT AB PEL WO CON-NO ORAL OR IV on D OS: 12/13/23, CT CT AB PEL WO CON-NO ORAL OR IV on DOS: 11/18/23 FINDINGS: Lung bases: Atelectasis and possible superimposed developing consolidation in the lung bases. Liver: Nodular contour of the liver suggesting cirrhosis. Biliary: Calcified gallstones in the gallbladder neck and possibly extending into the cystic duct. Mi ldly distended gallbladder with pericholecystic fluid, although may be due to ascites. Spleen: Spleen is enlarged measuring up to 16.1 cm in greatest dimension. Pancreas: Grossly unremarkable in its noncontrast enhanced appearance. Adrenal glands: Unremarkable. No mass. Kidneys: No hydronephrosis. No renal or ureteral calculi. Aorta/Vascular: No aneurysm or significant calcification. Retroperitoneum: No mass or lymphadenopathy. Bowel/mesentery: Moderate abdominal and pelvic ascites. No small bowel obstruction. Appendix is not v isualized. Nonspecific areas of colonic wall thickening, may be inflammatory in nature or due to thir d-spacing of fluid. Moderate stranding adjacent to the rectum, may be seen with proctitis. Prominent gastric varices. Pelvic organs: Grossly unremarkable. Bladder: Unremarkable. No mass. Abdominal wall: Small to moderate umbilical hernia containing ascites. Bones: No acute fracture or suspicious intraosseous lesion. IMPRESSION: 1. Cirrhotic liver morphology with moderate abdominal and pelvic ascites. 2. Splenomegaly. 3. Cholelithiasis. Gallbladder is mildly distended is pericholecystic fluid, although may be due to a scites. Acute cholecystitis not excluded. Correlate with clinical findings. If clinically indicated, ultrasound could be obtained. 4. Findings consistent with proctitis in the appropriate clinical setting. 5. Areas of wall thickening of the colon may be due to inflammatory etiology/colitis or third-spacing of fluid. Correlate with clinical findings. 6. Additional findings as detailed above.
[2024-10-25] MEDS: metroNIDAZOLE 500MG/100ML 100 ML IV ONE (09:23)
[2024-10-25 09:25] LABS: Urine Bacteria None Seen /hpf (None Seen)
[2024-10-25] MEDS: PROPOFOL 100 ML IV ONE (09:35)
[2024-10-25 09:43] LABS: Urine Blood Negative /uL (Negative); Urine Clarity Turbid (Clear); Urine Color Dark-Yellow (Yellow); Urine Hyaline Cast MANY /lpf (0 - 2); Urine Mucus FEW (None Seen); Urine Protein, UAD TRACE (Negative); Urine Specific Gravity 1.025 (1.001-1.035); Urine Squamous Epithelial Cell FEW /hpf (<5); Urine Urobilinogen 4 mg/dL (Negative); Urine WBC 2 /HPF (0-3)
[2024-10-25] MEDS: PROPOFOL 100 ML IV SCH (09:45)
[2024-10-25] MEDS: CALCIUM GLUC 1,000mg/50ml-NS 50 ML IV ONE (09:50)
[2024-10-25] MEDS: FUROSEMIDE 20 MG/2 ML VIAL IV ONE (09:57)
[2024-10-25] MEDS ORDERED: LACTULOSE 20Gm/30ML SOLN PO SCH ×2 (10:00→14:00)
[2024-10-25] MEDS: SPIRONOLACTONE 25 MG TAB PO SCH (10:00)
[2024-10-25] MEDS: THIAMINE HCL 100 MG TAB NG SCH (10:00)
[2024-10-25] MEDS: MULTIPLE VITAMINS W/ MINERALS TAB PO SCH (10:00)
[2024-10-25] MEDS: LISINOPRIL 5 MG TAB PO SCH (10:00)
[2024-10-25] MEDS ORDERED: FUROSEMIDE 40 MG/4 ML VIAL IV SCH (10:00)
[2024-10-25 10:12] LABS: Base Excess -9.4 mmol/L (-2.0-3.0)
[2024-10-25] MEDS: SODIUM BICARB 8.4% 50Meq/50ml SYR INJ IV ONE (10:21)
[2024-10-25] MEDS: PANTOPRAZOLE 40 MG/10 ML VIAL INJ IV SCH (10:53)
--- NOTE | 2024-10-25 11:01 | DVH ---
ULTRASOUND ABDOMEN LIMITED INDICATION: r/o cholecystitis TECHNIQUE: Multiple real-time sonographic images of the abdomen were obtained. COMPARISON: US ABDOMEN LIMITED on DOS: 10/18/24, US ABDOMEN LIMITED on DOS: 10/15/24 FINDINGS: The liver demonstrates nodular surface contour and coarsened heterogeneous echotexture suggestive of hepatic cirrhosis. There is no gross evidence of hepatic lesion or intrahepatic biliary ductal dilata tion. There is moderate amount of ascites. There is no flow identified in the main portal vein on the current study. There are small gallstones within the gallbladder neck. Gallbladder wall appears thickened. The commo n bile duct measures 5 mm. The right kidney measures 9.7 cm length. No sonographic evidence of nephrolithiasis or hydronephros is. Pancreas is obscured by bowel gas. IMPRESSION: 1. The liver demonstrates cirrhotic morphology. There is no gross evidence of a hepatic lesion. There is moderate amount of ascites. There is no flow identified in the main portal vein on the current ul trasound study. 2. There are small gallstones within the gallbladder neck. The gallbladder wall appears thickened. C linical correlation for cholecystitis is recommended. HS:Y
[2024-10-25] MEDS: NOREPINEPHRINE 8 MG/250ML KIT 250 ML IV SCH (11:46)
--- NOTE | 2024-10-25 13:03 | DVHINCON2 ---
Date of service: Oct 25, 2024 Referring Physician Destinee Reason for Consultation Cirrhosis History of Present Illness The patient is a 29-year-old male with a prior history of cirrhosis due to alcohol abuse, decompensations including ascites, esophageal varices, recent admission for paracentesis, returns with abdominal pain, altered mental status, elevated ammonia, hypotension suspected sepsis on IV pressors. Patient has been intubated. GI consultation obtained. History obtained from the chart. Past Medical History As above Past Surgical History History of endoscopy Family History: Cirrhosis of liver G8 MOTHER Colon cancer G8 FATHER FH: prostate cancer G8 FATHER Hypertension G8 MOTHER G8 FATHER Social History History of alcohol abuse Allergies: Coded Allergies: NO KNOWN ALLERGIES (Unverified , 01/27/21) Home Meds Active Scripts Lactulose (Lactulose) 10 Gm Chris, 30 GM PO TID for 30 Days, #30 PACK 0 Refills Please take lactulose 30 mL 3 times daily Prov:WILL SHIELDS RESIDENT 10/19/24 Multiple Vitamins W/ Minerals (Mvi W/ Minerals Tab) 1 Tab Tb, 1 TAB PO DAILY for 30 Days, #30 TAB Prov:DHEERAJ MONTANO MD 09/27/24 Metronidazole (Flagyl) 500 Mg Tab, 500 MG PO TID for 7 Days, #21 TAB Prov:DHEERAJ MONTANO MD 09/27/24 Spironolactone (Aldactone) 100 Mg Tab, 100 MG PO DAILY for 30 Days, #30 TAB 3 Refills Prov:DHEERAJ MONTANO MD 09/27/24 Furosemide (Lasix) 40 Mg Tab, 40 MG PO QAM for 30 Days, #30 TAB 3 Refills Prov:DHEERAJ MONTANO MD 09/27/24 Pantoprazole Sodium Sesquihydr (Protonix) 40 Mg Tab, 40 MG PO DAILY for 30 Days, #30 TAB 2 Refills Prov:DHEERAJ MONTANO MD 09/27/24 Chlordiazepoxide Hcl (Ni-1) (I (Librium) 10 Mg Cap, 10 MG PO Q6HR PRN for 10 Days, #30 CAP 0 Refills Prov:MARCELO GAFFNEY MD 07/21/24 Spironolactone (Aldactone) 25 Mg Tab, 1 TAB PO DAILY for 30 Days, #30 TAB 5 Refills Prov:JO ELDER MD 11/20/23 Furosemide (Lasix) 40 Mg Tab, 40 MG PO DAILY for 30 Days, #30 TAB Prov:JO ELDER MD 11/20/23 Reported Medications Carvedilol (Carvedilol) 3.125 Mg Tab, 1 10/25/24 Lisinopril (Lisinopril) 2.5 Mg Tab, 2.5 MG PO DAILY for 30 Days, MG 10/13/24 Thiamine Hcl (VITAMIN B-1) 100 Mg Tb, 1 DAILY 10/13/24 Furosemide (Furosemide) 40 Mg Tab, 40 MG PO DAILY for 30 Days 11/19/23 Current Medications Current Medications Medications (Trade) Dose Ordered Sig/Gretchen Route PRN Reason Start Time Stop Time Status Last Admin Midazolam HCl 50 ml @ 1 mls/hr Q24H IV 10/25/24 08:00 10/25/24 11:38 Sodium Chloride 1,000 ml @ 100 mls/hr Q10H IV 10/25/24 08:15 10/25/24 08:15 Ondansetron HCl (Zofran) 4 mg Q4HP PRN IV NAUSEA / VOMITING 10/25/24 08:15 Acetaminophen (Tylenol Tablet) 650 mg Q6HP PRN PO PAIN SCALE 1-3 OR TEMP>100.4 10/25/24 08:15 Nitroglycerin (Ntrostat Sublingual) 0.4 mg Q5MINP PRN SL FOR CHEST PAIN 10/25/24 08:15 Morphine Sulfate 2 mg Q30M PRN IV FOR CHEST PAIN 10/25/24 08:15 Midazolam HCl 50 ml @ 1 mls/hr Q24H IV 10/25/24 08:15 10/25/24 09:57 DC Multivitamins/ Minerals (Mvi W/ Minerals Tablet) 1 tab DAILY PO 10/25/24 10:00 Spironolactone (Aldactone) 25 mg DAILY PO 10/25/24 10:00 Thiamine HCl 100 mg DAILY NG 10/25/24 10:00 Lactulose 30 ml BID PO 10/25/24 10:00 10/25/24 09:31 DC Lisinopril (Zestril Tablet) 2.5 mg DAILY PO 10/25/24 10:00 Furosemide (Lasix Injection) 40 mg DAILY IV 10/25/24 10:00 10/25/24 09:40 DC Pantoprazole Sodium (Protonix) 40 mg DAILY IV 10/25/24 10:00 10/25/24 10:53 Ceftriaxone Sodium 50 ml @ 100 mls/hr DAILY@09 IV 10/25/24 09:00 Metronidazole 100 ml @ 100 mls/hr Q8HR IV 10/25/24 14:00 Lactulose 30 ml TID PO 10/25/24 14:00 Propofol 100 ml @ 2.454 mls/ hr Q24H IV 10/25/24 09:45 10/25/24 09:45 Norepinephrine Bitartrate 250 ml @ 3.75 mls/hr Q24H IV 10/25/24 11:30 10/25/24 11:46 Review of Systems Review of systems as per HPI otherwise unable to be obtained Vital Signs Vital Signs Date Time Temp Pulse Resp B/P (MAP) Pulse Ox O2 Delivery O2 Flow Rate FiO2 10/25/24 12:00 123 14 100/53 (69) 100 10/25/24 09:55 30 10/25/24 07:45 Room Air* 0 10/25/24 06:52 98.6 Physical Exam General: Intubated and sedated HEENT: Scleral icterus is present ETT tube in mouth Heart: Tachycardic regular rhythm Abdomen: Distended with ascites Extremity: Edema is present, no rashes or bruises Neuro: Intubated Labs/Diagnostic Data Labs Test 10/25/24 11:48 10/25/24 09:50 10/25/24 09:20 10/25/24 08:27 Range/Units Potassium Level 4.2 3.5-5.1 mmol/L Blood Gas Specimen Type Arterial Blood Gas Sample Site Right radial Blood Gas Patient Temperature 37.0 Arterial Blood Date Drawn [id number] Arterial Blood pH 7.323 L 7.350-7.450 Arterial Blood Partial Pressure CO2 30.7 L 35.0-48.0 mmHg Arterial Blood Partial Pressure O2 118.5 H 83.0-108.0 mmHg Arterial Blood HCO3 15.6 L 21.0-28.0 mmol/L Arterial Blood Oxygen Saturation 98.0 94.0-98.0 % Arterial Blood Base Excess -9.4 L -2.0-3.0 mmol/L Arterial Blood Oxyhemoglobin 96.5 94.0-98.0 % Arterial Blood Carboxyhemoglobin 0.7 0.5-1.5 % Arterial Blood Methemoglobin 0.8 0.0-1.5 % John Test Modified Blood Gas Total Hemoglobin 10.00 L 13.5-17.5 g/dL Blood Gas Set Respiration Rate 18.0 Blood Gas Modality Vent - ac FiO2 % 40.0 Blood Gas Tidal Volume 450.0 Blood Gas PEEP or CPAP 5.0 Urine Color Dark-yellow Yellow Urine Clarity Turbid H Clear Urine pH 6.0 5.0-9.0 Urine Specific [place] 1.025 1.001-1.035 Urine Protein Trace H Negative Urine Ketones Negative Negative Urine Blood Negative Negative /uL Urine Nitrite Negative Negative Urine Bilirubin 1+ Negative Urine Urobilinogen 4 H Negative mg/dL Urine Leukocyte Esterase Negative Negative /uL Urine RBC <1 0 - 3 /hpf Urine Microscopic WBC 2 0-3 /HPF Urine Squamous Epithelial Cells Few <5 /hpf Urine Bacteria None seen None Seen /hpf Urine Hyaline Casts Many 0 - 2 /lpf Urine Mucus Few None Seen Urine Glucose Normal Normal mg/dL Lactic Acid Level 3.3 *H 0.4-2.0 mmol/L Test 10/25/24 07:15 Range/Units White Blood Count 6.2 # 4.4-10.8 10^3/uL Red Blood Count 3.22 L 4.5-5.90 10^6/uL Hemoglobin 9.3 L 13.5-17.5 g/dL Hematocrit 28.6 L 41.0-53.0 % Mean Corpuscular Volume 88.9 80.0-100.0 fL Mean Corpuscular Hemoglobin 28.9 28.0-32.0 pg Mean Corpuscular Hemoglobin Concent 32.5 32.0-36.0 g/dL Red Cell Distribution Width 34.2 H 11.8-14.3 % Platelet Count 103 L 140-450 10^3/uL Mean Platelet Volume 9.7 6.9-10.8 fL Neutrophils (%) (Auto) 76.9 37.0-80.0 % Lymphocytes (%) (Auto) 8.0 L 10.0-50.0 % Monocytes (%) (Auto) 11.1 0.0-12.0 % Eosinophils (%) (Auto) 3.8 0.0-7.0 % Basophils (%) (Auto) 0.2 0.0-2.0 % Neutrophils # (Auto) 4.7 1.6-8.6 10 ^3/uL Lymphocytes # (Auto) 0.5 0.4-5.4 10 ^3/uL Monocytes # (Auto) 0.7 0-1.3 10 ^3/uL Eosinophils # (Auto) 0.2 0-0.8 10 ^3/uL Basophils # (Auto) 0 0-0.2 10 ^3/uL Nucleated Red Blood Cells 0.1 % Prothrombin Time 16.6 H 9.3-11.8 sec Prothrombin Time INR 1.65 H 0.9-1.15 Activated Partial Thromboplast Time 38.4 H 24.5-34.5 SEC Sodium Level 128 #L 136-145 mmol/L Chloride Level 101 98-107 mmol/L Carbon Dioxide Level 18 L 20-31 mmol/L Anion Gap 9 5-15 Blood Urea Nitrogen 42 H 9-23 mg/dL Creatinine 1.52 H 0.700-1.30 mg/dL Glomerular Filtration Rate Calc 62 >90 mL/min BUN/Creatinine Ratio 27.6 H 10.0-20.0 Serum Glucose 113 H 74-106 mg/dL Calcium Level 7.8 L 8.7-10.4 mg/dL Total Bilirubin 6.3 H 0.2-1.0 mg/dL Aspartate Amino Transferase (AST) 118 H 13-40 U/L Alanine Aminotransferase (ALT) 51 H 7-40 U/L Alkaline Phosphatase 209 H 46-116 U/L Ammonia 224 *H 11-32 umol/L B-Type Natriuretic Peptide 17.38 0-100 pg/mL Total Protein 5.9 5.7-8.2 g/dL Albumin 2.2 L 3.2-4.8 g/dL Assessment 1. Abdominal pain 2. Cirrhosis 3. Ascites 4. Anemia 5. History of esophageal varices 6. Hepatic encephalopathy 7. Coagulopathy 8. Thrombocytopenia 9. Jaundice 10. Lactic acidosis 11. Cholelithiasis question coli cystitis 12. Respiratory failure 13. Hypotension Problems(with codes): (1) Anemia (2) Alcohol abuse (3) Gallstones (4) Splenomegaly (5) Elevated liver enzymes (6) Intractable abdominal pain (7) Pancytopenia (8) Hepatic encephalopathy Plan/Recommendation 1. Consider rectal lactulose for hepatic encephalopathy. Agree with holding off on NG tube placement at this time for esophageal varices and risk of bleeding 2. Continue IV pressor therapy 3. Antibiotics 4. Follow labs and replace electrolytes 5. Consider EGD when stable 6. Paracentesis as indicated 7. Dr. Gray we will follow Plan discussed with: Other WAGNER BEAULIEU MD Oct 25, 2024 13:03
--- NOTE | 2024-10-25 13:20 | DVHPN2 ---
Progress Note Date Seen: Oct 25, 2024 Medical Necessity Reason Pt with a Central, PICC or Fol: Yes The following are medically ne: Central Line, Cartwright Catheter Reason for cartwright catheter: Strict I&O Subjective Patient reports: No new complaints Review of Systems: HEENT:Normal, CVS:Normal, RESPIRATORY:Normal, GI:Normal, :Normal, MSK:Normal, NEURO:Normal Objective vital signs Vital Sign Date Time Temp Pulse Resp B/P (MAP) Pulse Ox O2 Delivery O2 Flow Rate FiO2 10/25/24 12:00 123 14 100/53 (69) 100 10/25/24 09:55 30 10/25/24 07:45 Room Air* 0 10/25/24 06:52 98.6 medications Current Medications Medications Dose Ordered Sig/Gretchen Route Start Time Stop Time Status Last Admin Dose Admin Midazolam HCl 50 ml @ 1 mls/hr Q24H IV 10/25/24 08:00 10/25/24 11:38 1 MLS/HR Sodium Chloride 1,000 ml @ 100 mls/hr Q10H IV 10/25/24 08:15 10/25/24 08:15 100 MLS/HR Ondansetron HCl 4 mg Q4HP PRN IV 10/25/24 08:15 Acetaminophen 650 mg Q6HP PRN PO 10/25/24 08:15 Nitroglycerin 0.4 mg Q5MINP PRN SL 10/25/24 08:15 Morphine Sulfate 2 mg Q30M PRN IV 10/25/24 08:15 Multivitamins/ Minerals 1 tab DAILY PO 10/25/24 10:00 Spironolactone 25 mg DAILY PO 10/25/24 10:00 Thiamine HCl 100 mg DAILY NG 10/25/24 10:00 Lisinopril 2.5 mg DAILY PO 10/25/24 10:00 Pantoprazole Sodium 40 mg DAILY IV 10/25/24 10:00 10/25/24 10:53 40 MG Ceftriaxone Sodium 50 ml @ 100 mls/hr DAILY@09 IV 10/25/24 09:00 Metronidazole 100 ml @ 100 mls/hr Q8HR IV 10/25/24 14:00 Lactulose 30 ml TID PO 10/25/24 14:00 Propofol 100 ml @ 2.454 mls/ hr Q24H IV 10/25/24 09:45 10/25/24 09:45 2.454 MLS/HR Norepinephrine Bitartrate 250 ml @ 3.75 mls/hr Q24H IV 10/25/24 11:30 10/25/24 11:46 3.75 MLS/HR Examination: GENERAL:Normal, HEENT:Normal, NECK:Normal, LUNGS:Normal, LUNGS:Abnormal (intubated), CVS:Normal, ABDOMEN:Normal, ABDOMEN:Abnormal (ascites), MSK:Normal, SKIN:Normal, NEURO:Normal, :Normal laboratory and microbiology Laboratory Tests 10/25/24 11:48 10/25/24 07:15 Test 10/25/24 07:15 Range/Units Serum Glucose 113 H 74-106 mg/dL Problem List/Assessment/Plan Problem List/Assessment/Plan #1 acute resp failure: cont acv #2 hepatic encephalopathy: lactulose, rifaximin #3 liver cirrhosis due to alcohol abuse #4 septic shock with ? peritonitis: iv cefepime, iv levophed #5 acute renal failure ?vasomotor nephropathy #6 poral htn #7 umbilical hernia #8 hyponatremia #9 gallstones #10 anemia/thrombocytopenia Plan discussed with: Other (rn) My Orders My Orders Orders - DHEERAJ MONTANO MD Procedure Category Date Status Time 0.9% Ns 1000 Ml PHA 10/25/24 Transmitted 13:15 Lactulose Oral PHA 10/25/24 Transmitted 13:15 Place Og Tube ORDERS 10/25/24 Transmitted 13:09 Insert Rectal Tube ORDERS 10/25/24 Transmitted 13:09 Cefepime 1 Gm PHA 10/25/24 Transmitted 14:00 Midodrine Tablet PHA 10/25/24 Transmitted (Proamatine Tablet) 18:00 Complete Blood Count LAB 10/26/24 Verified 06:00 Comprehensive LAB 10/26/24 Verified Metabolic Panel 06:00 Ammonia LAB 10/26/24 Verified 06:00 PTPTT LAB 10/26/24 Verified 04:00 Chest Portable XY 10/26/24 Transmitted 06:00 Abg W/ Co-Ox RT 10/26/24 Transmitted 06:00 Critical Care Time (mins): 81 (critical care time 81 mins) Date of Service: Oct 25, 2024 Billing Provider: DHEERAJ MONTANO MD Common Visit Codes: [id number] CARE 30-74 MIN, [id number] CARE-EACH +30MIN DHEERAJ MONTANO MD Oct 25, 2024 13:20
[2024-10-25] MEDS ORDERED: metroNIDAZOLE 500MG/100ML 100 ML IV SCH (14:00)
[2024-10-25] MEDS: LACTULOSE 20Gm/30ML SOLN PO SCH (14:00)
[2024-10-25] MEDS: CEFEPIME 1GM/ 50ML 50 ML IV SCH (15:42)
[2024-10-25] MEDS: rifAXIMin 550 MG TAB PO ONE (15:42)
[2024-10-25] MEDS: MIDODRINE HCL 10 MG TAB PO SCH (17:53)
[2024-10-25] MEDS: rifAXIMin 550 MG TAB PO SCH (21:26)
[2024-10-26] VITALS (108 sets, daily range): BP systolic 95–111; BP diastolic 50–67; PULSE 102–122; RESP 13–27; TEMP 97–99.7; O2SAT 96–100
[2024-10-26] MEDS: fentaNYL Drip 2500mCg/250mlNS 250 ML IV SCH (04:00)
[2024-10-26 05:20] LABS: Basophils # (auto) 0 10 ^3/uL (0-0.2); Basophils % (auto) 0.6 % (0.0-2.0); Eosinophils # (auto) 0.6 10 ^3/uL (0-0.8); Hematocrit 27.6 % (41.0-53.0); Hemoglobin 9.2 g/dL (13.5-17.5); Lymphocytes # (auto) 1.1 10 ^3/uL (0.4-5.4); Lymphocytes % (auto) 14.1 % (10.0-50.0); Mean Corpuscular Hemoglobin 29.6 pg (28.0-32.0); Mean Corpuscular Hgb Conc. 33.2 g/dL (32.0-36.0); Monocytes # (auto) 1.1 10 ^3/uL (0-1.3); Monocytes % (auto) 14.4 % (0.0-12.0); Neutrophils # (auto) 4.9 10 ^3/uL (1.6-8.6); Neutrophils % (auto) 62.9 % (37.0-80.0); Nucleated Red Blood Cells % 0.2 %; Platelet Count (auto) 129 10^3/uL (140-450); White Blood Cell 7.8 10^3/uL (4.4-10.8)
[2024-10-26 05:22] LABS: Anion Gap 9 (5-15); BUN/Creatinine Ratio 30.8 (10.0-20.0); Chloride 105 mmol/L (98-107); INR 1.62 (0.9-1.15); Partial Thromboplastin Time 43.3 SEC (24.5-34.5); Potassium 4.9 mmol/L (3.5-5.1); Prothrombin Time 16.4 sec (9.3-11.8)
[2024-10-26 05:28] LABS: Red Cell Distribution Width 35.4 % (11.8-14.3)
--- NOTE | 2024-10-26 05:31 | DVH ---
EXAM: XR Chest, 1 View CLINICAL INDICATION: resp failure TECHNIQUE: Frontal view of the chest. COMPARISON: XY CHEST PORTABLE on DOS: 10/25/24, XY CHEST PORTABLE on DOS: 09/22/24, XY CHEST PORTABLE on DOS: 11/20/23, CHEST PORTABLE on DOS: 01/30/21, CHEST XRAY 1 VIEW on DOS: 01/27/21 FINDINGS: LUNGS AND PLEURAL SPACES: Mild pulmonary congestion. No consolidation. No pneumothorax. HEART: Unremarkable. No cardiomegaly. MEDIASTINUM: Unremarkable. Normal mediastinal contour. BONES/JOINTS: Unremarkable. No acute fracture. TUBES, LINES AND DEVICES: The endotracheal tube (ETT) is in satisfactory position. Right internal jugular central venous catheter tip in the superior vena cava. Enteric tube tip in the stomach. OTHER FINDINGS: . IMPRESSION: Mild pulmonary congestion.
[2024-10-26 05:40] LABS: Alanine Aminotransferase 46 U/L (7-40); Alkaline Phosphatase 189 U/L (46-116); Aspartate Aminotransferase 99 U/L (13-40); Bilirubin, Total 5.5 mg/dL (0.2-1.0); Blood Urea Nitrogen 45 mg/dL (9-23); Calcium 8.3 mg/dL (8.7-10.4); Carbon Dioxide 18 mmol/L (20-31); Glucose 109 mg/dL (74-106); Sodium 132 mmol/L (136-145); Total Protein 5.4 g/dL (5.7-8.2)
[2024-10-26 06:08] LABS: Anisocytosis Moderate; Target Cell FEW; Tear Drop Cells FEW
[2024-10-26 06:09] LABS: Platelet Estimate Decreased
[2024-10-26 06:40] LABS: Base Excess -6.6 mmol/L (-2.0-3.0)
[2024-10-26] MEDS: NOREPINEPHRINE 8 MG/250ML KIT 250 ML IV ONE (07:48)
[2024-10-26] MEDS: MIDAZOLAM DRIP 50 mg/50mL 100 ML IV ONE (07:48)
[2024-10-26] MEDS: fentaNYL Drip 2500mCg/250mlNS 250 ML IV ONE (07:48)
--- NOTE | 2024-10-26 10:11 | MEDREC ---
[facility] ASP Intervention Section I [facility] ASP Intervention: Dose optimization(PK/PD) (PATIENT IS INTUBATED WITH QUESTIONABLE SEPTIC SHOCK WITH PERITONITIS (PER DR. MONTANO'S NOTE). THE PRELIMINARY BLOOD CULTURE SHOWED GRAM NEGATIVE RODS. PLEASE CONSIDER INCREASING DOSE OF CEFEPIME TO 2 G IV Q8H FOR POSSIBLE BACTEREMIA ) GILLES KERR Oct 26, 2024 10:11
--- NOTE | 2024-10-26 10:58 | DVHPNRES ---
Progress Note Date Seen: Oct 26, 2024 Resident Creating Document: SAMMY HAY RESIDENT Medical Necessity Reason Pt with a Central, PICC or Fol: Yes The following are medically ne: Central Line, Cartwright Catheter Reason for cartwright catheter: Strict I&O Subjective Review of Systems The patient remains sedated and ventilated. Hemodynamically stable. Objective vital signs Vital Sign Date Time Temp Pulse Resp B/P (MAP) Pulse Ox O2 Delivery O2 Flow Rate FiO2 10/26/24 10:15 97.0 106 16 101/54 (70) 99 206.6 10/26/24 10:00 30 10/26/24 10:00 Mechanical Ventilator+ 10/25/24 07:45 0 Total Intake and Output 10/25/24 10/25/24 10/26/24 15:00 23:00 07:00 Intake Total 830.224 ml 1008.292 ml 1130.010 ml Output Total 250 ml 1375 ml Balance 830.224 ml 758.292 ml -244.990 ml medications Current Medications Medications Dose Ordered Sig/Gretchen Route Start Time Stop Time Status Last Admin Dose Admin Midazolam HCl 50 ml @ 1 mls/hr Q24H IV 10/25/24 08:00 10/26/24 05:05 15 MLS/HR Acetaminophen 650 mg Q6HP PRN PO 10/25/24 08:15 Nitroglycerin 0.4 mg Q5MINP PRN SL 10/25/24 08:15 Morphine Sulfate 2 mg Q30M PRN IV 10/25/24 08:15 Multivitamins/ Minerals 1 tab DAILY PO 10/25/24 10:00 10/26/24 10:01 1 TAB Pantoprazole Sodium 40 mg DAILY IV 10/25/24 10:00 10/26/24 10:01 40 MG Propofol 100 ml @ 2.454 mls/ hr Q24H IV 10/25/24 09:45 10/26/24 05:04 24.54 MLS/HR Norepinephrine Bitartrate 250 ml @ 3.75 mls/hr Q24H IV 10/25/24 11:30 10/26/24 03:17 18.75 MLS/HR Sodium Chloride 1,000 ml @ 60 mls/hr [id number] IV 10/25/24 13:15 10/26/24 04:36 60 MLS/HR Lactulose 30 ml Q4HR PO 10/25/24 13:15 10/26/24 10:01 30 ML Cefepime HCl 50 ml @ 12.5 mls/hr Q8HR IV 10/25/24 14:00 10/26/24 05:50 12.5 MLS/HR Midodrine 5 mg TID@0600,1200,1800 PO 10/25/24 18:00 10/26/24 05:50 5 MG Rifaximin 550 mg BID PO 10/25/24 22:00 10/26/24 10:02 550 MG Fentanyl Citrate 250 ml @ 2.5 mls/hr Q24H IV 10/26/24 03:45 10/26/24 04:00 2.5 MLS/HR Examination: GENERAL:Abnormal (Remains sedated and ventilated.), HEENT:Normal (ET tube in place), NECK:Normal (Central line in place), LUNGS:Normal (Bilateral equal air entry, thinking with the ventilation, basal rales bilateral), CVS:Normal, ABDOMEN:Abnormal (Fluid thrill present, bilateral flank full, shifting dullness, inverted ambulate cause with the umbilical hernia), MSK:Normal, SKIN:Abnormal (We will visible icterus), NEURO:Abnormal (Sedated and ventilated), :Normal (On Cartwright's catheter) laboratory and microbiology Laboratory Tests 10/26/24 04:48 Test 10/26/24 04:48 Range/Units Serum Glucose 109 H 74-106 mg/dL Microbiology Date/Time Source Procedure Growth Status 10/25/24 09:20 Voided Urine Urine Culture - Preliminary Resulted 10/25/24 07:15 Blood Blood Culture - Preliminary Resulted Labs and/or images reviewed: Labs reviewed by me, Image(s) reviewed by me Problem List/Assessment/Plan Problem List/Assessment/Plan ICU Course: 29-year-old gentleman with past medical history significant for hypertension, chronic alcoholism, malnutrition, liver cirrhosis with decompensated liver failure previously presented to the ED with abdominal pain, was found to have septic shock, toxic/metabolic encephalopathy and was unable to protect airways and was intubated and sedated and was upgraded to the ICU/ANNIE use status, limited history but as per family patient was still drinking at least 3 weeks prior to this incident. Hospitalization day: 2 A. Neurolgy: # sedation for mechanical ventilation synchronization: Fentanyl and Versed, titratable. RASS -2-3 # toxic/metabolic hepatic encephalopathy: Presented with altered level of consciousness likely due to the above, multifactorial possibly due to hyperammonemia, sepsis, bacteremia, infection, electrolyte disturbances. # chronic alcohol abuse: Despite having progressed to liver cirrhosis in her early 30s patient continues to drink, needs further evaluation and supportive care and 12 step alcohol rehabilitation program to be recommended at recovery of the acute stage. # hyperammonemia: Presented in 200s, status post verify mixed seen and lactulose with target of bowel movement 2-3 times at least a day, on rectal tube, target achieved, repeat ammonia 82. B. Cardiology: # hypotension: Likely due to underlying septic shock, on Levophed titratable, around 4, we will titrate as tolerated, with target map over 65. Although this might be modified as underlying liver cirrhosis could be playing a role in maintaining blood pressure. # history of hypertension: Known hypertensive, held all antihypertensives, target blood pressure for this gentleman will be 140/90 or below as per aha/ACC guidelines. C. Respiratory: # acute respiratory failure: Continue mechanical ventilation with ETT in place, daily chest x-ray, repositioning, respiratory therapy input appreciated, AC/VC/VT 450, peep of 5, FiO2 of 30%, minimal when sitting saturating well of SpO2 near 100%. #possible aspiration pneumonia: Under level of consciousness might be contributory to respiratory failure, we will treat as aspiration pneumonia, respiratory culture pending, broad-spectrum antibiotic to continue. D. Gastrointenstinal: # liver cirrhosis due to alcohol abuse: Not a great candidate for liver transplant but needs further follow up with GI and hepatology, lifestyle modification and risk reduction prior to further life-saving clinical discussion. # portal hypertension: Likely due to cirrhosis. # ascites: 1.4 L approximately fluid aspirated both for therapeutic and diagnostic purpose, to rule out spontaneous bacterial peritonitis, sample, culture, lab under work. Might need further paracentesis in this hospitalization. # umbilical hernia: Stable, on incarcerated, previously known. No intervention needed at this point. #NG tube in place, nutrition to continue with tube feeding as tolerated, residual to check every 12 hours. If needed add Reglan 5 t.i.d. tomorrow. # cholelithiasis without cholecystitis # hyperbilirubinemia 5.5, carolann icterus. # transaminitis: Typical 2 to 1 pattern of alcoholics, follow up INR/PT/PTT, on daily CMP. # acute cholecystitis not excluded: Both U/S and abdominal CT could not get any at possibly be of cholecystitis, moves further clinical evaluation and once patient is more stable might consider HIDA scan. We will continue broad- spectrum antibiotics as of now. E. Geniotourinary: # on Cartwright's catheter, close input output to check. F. Infectious Disease: # Gram-positive bacteremia, vancomycin added, previously patient on cefepime, rifampin to cover for septic shock and ascites related complications. G. Hematology & Oncology: # pancytopenia secondary to liver cirrhosis and possible hepatosplenomegaly # thrombocytopenia: Close follow up, # anemia: Transfusion threshold 7 H. Nephrology: # hyponatremia: Corrected for hypoalbuminemia, likely due to cirrhosis, close follow up of CMP daily. Treat underlying cause. Avoid over-correction. # ANDRÉS likely due to vasomotor nephropathy: Multifactorial due to underlying sepsis, possible hepatorenal, on prerenal contributory. Close monitoring of input output, avoid nephrotoxics, close input output to check for urine output/anuria. I. Endocrine: # overweight with BMI of 26.8 # moderate protein energy malnutrition likely due to underlying alcoholism and poor oral intake, dietitian consult when appropriate. J. MSK: # poor muscle mass, likely wound benefitted from physical therapy after acute care. . K. Prophylaxis: PPI: IV PPI DVT: Avoid heparin ambulated products, due to thrombocytopenia. L. Lines & Drains (with insertion date): IV 227 Central 227 Arterial line not needed M. Drips: Fentanyl, Versed, Levophed N. Disposition: Remains in ANNIE The plan was discussed with the ICU attending Dr. Whiteside The patient care consists of total 81 minutes of critical care time excluding the procedures. Dictated by Sammy Hay MD with 3M MModal Fluency. Plan discussed with: Patient, Other (Father, family. Primary team. RN.) Labs/Diagnostic Data Laboratory Tests Test 10/26/24 06:36 10/26/24 04:48 10/25/24 11:48 Range/Units Blood Gas Specimen Type Arterial Blood Gas Sample Site Left radial Blood Gas Patient Temperature 37.0 Arterial Blood Date Drawn [id number] Arterial Blood pH 7.313 L 7.350-7.450 Arterial Blood Partial Pressure CO2 38.5 35.0-48.0 mmHg Arterial Blood Partial Pressure O2 107.8 83.0-108.0 mmHg Arterial Blood HCO3 19.1 L 21.0-28.0 mmol/L Arterial Blood Oxygen Saturation 97.0 94.0-98.0 % Arterial Blood Base Excess -6.6 L -2.0-3.0 mmol/L Arterial Blood Oxyhemoglobin 95.7 94.0-98.0 % Arterial Blood Carboxyhemoglobin 0.6 0.5-1.5 % Arterial Blood Methemoglobin 0.7 0.0-1.5 % John Test Modified Blood Gas Total Hemoglobin 9.70 L 13.5-17.5 g/dL Blood Gas Set Respiration Rate 18.0 Blood Gas Modality Vent - ac FiO2 % 30.0 Blood Gas Tidal Volume 450.0 Blood Gas PEEP or CPAP 5.0 White Blood Count 7.8 # 4.4-10.8 10^3/uL Red Blood Count 3.10 L 4.5-5.90 10^6/uL Hemoglobin 9.2 L 13.5-17.5 g/dL Hematocrit 27.6 L 41.0-53.0 % Mean Corpuscular Volume 89.0 80.0-100.0 fL Mean Corpuscular Hemoglobin 29.6 28.0-32.0 pg Mean Corpuscular Hemoglobin Concent 33.2 32.0-36.0 g/dL Red Cell Distribution Width 35.4 H 11.8-14.3 % Platelet Count 129 L 140-450 10^3/uL Mean Platelet Volume 8.9 6.9-10.8 fL Neutrophils (%) (Auto) 62.9 37.0-80.0 % Lymphocytes (%) (Auto) 14.1 10.0-50.0 % Monocytes (%) (Auto) 14.4 H 0.0-12.0 % Eosinophils (%) (Auto) 8.0 H 0.0-7.0 % Basophils (%) (Auto) 0.6 0.0-2.0 % Neutrophils # (Auto) 4.9 1.6-8.6 10 ^3/uL Lymphocytes # (Auto) 1.1 0.4-5.4 10 ^3/uL Monocytes # (Auto) 1.1 0-1.3 10 ^3/uL Eosinophils # (Auto) 0.6 0-0.8 10 ^3/uL Basophils # (Auto) 0 0-0.2 10 ^3/uL Nucleated Red Blood Cells 0.2 % Platelet Estimate Decreased Anisocytosis (manual) Moderate Target Cells Few Tear Drop Cells Few Schistocytes Few Prothrombin Time 16.4 H 9.3-11.8 sec Prothrombin Time INR 1.62 H 0.9-1.15 Activated Partial Thromboplast Time 43.3 H 24.5-34.5 SEC Sodium Level 132 L 136-145 mmol/L Potassium Level 4.9 4.2 3.5-5.1 mmol/L Chloride Level 105 98-107 mmol/L Carbon Dioxide Level 18 L 20-31 mmol/L Anion Gap 9 5-15 Blood Urea Nitrogen 45 H 9-23 mg/dL Creatinine 1.46 H 0.700-1.30 mg/dL Glomerular Filtration Rate Calc 66 >90 mL/min BUN/Creatinine Ratio 30.8 H 10.0-20.0 Serum Glucose 109 H 74-106 mg/dL Calcium Level 8.3 L 8.7-10.4 mg/dL Total Bilirubin 5.5 H 0.2-1.0 mg/dL Aspartate Amino Transferase (AST) 99 H 13-40 U/L Alanine Aminotransferase (ALT) 46 H 7-40 U/L Alkaline Phosphatase 189 H 46-116 U/L Ammonia 82 H 11-32 umol/L Total Protein 5.4 L 5.7-8.2 g/dL Albumin 2.0 L 3.2-4.8 g/dL Microbiology Date/Time Source Procedure Growth Status 10/25/24 09:20 Voided Urine Urine Culture - Preliminary Resulted 10/25/24 07:15 Blood Blood Culture - Preliminary Resulted vital signs Vital Sign Date Time Temp Pulse Resp B/P (MAP) Pulse Ox O2 Delivery O2 Flow Rate FiO2 10/26/24 10:15 97.0 106 16 101/54 (70) 99 206.6 10/26/24 10:00 30 10/26/24 10:00 Mechanical Ventilator+ 10/25/24 07:45 0 Total Intake and Output 10/25/24 10/25/24 10/26/24 15:00 23:00 07:00 Intake Total 830.224 ml 1008.292 ml 1130.010 ml Output Total 250 ml 1375 ml Balance 830.224 ml 758.292 ml -244.990 ml medications Current Medications Medications Dose Ordered Sig/Gretchen Route Start Time Stop Time Status Last Admin Dose Admin Midazolam HCl 50 ml @ 1 mls/hr Q24H IV 10/25/24 08:00 10/26/24 05:05 15 MLS/HR Acetaminophen 650 mg Q6HP PRN PO 10/25/24 08:15 Nitroglycerin 0.4 mg Q5MINP PRN SL 10/25/24 08:15 Morphine Sulfate 2 mg Q30M PRN IV 10/25/24 08:15 Multivitamins/ Minerals 1 tab DAILY PO 10/25/24 10:00 10/26/24 10:01 1 TAB Pantoprazole Sodium 40 mg DAILY IV 10/25/24 10:00 10/26/24 10:01 40 MG Propofol 100 ml @ 2.454 mls/ hr Q24H IV 10/25/24 09:45 10/26/24 05:04 24.54 MLS/HR Norepinephrine Bitartrate 250 ml @ 3.75 mls/hr Q24H IV 10/25/24 11:30 10/26/24 03:17 18.75 MLS/HR Sodium Chloride 1,000 ml @ 60 mls/hr [id number] IV 10/25/24 13:15 10/26/24 04:36 60 MLS/HR Lactulose 30 ml Q4HR PO 10/25/24 13:15 10/26/24 10:01 30 ML Cefepime HCl 50 ml @ 12.5 mls/hr Q8HR IV 10/25/24 14:00 10/26/24 05:50 12.5 MLS/HR Midodrine 5 mg TID@0600,1200,1800 PO 10/25/24 18:00 10/26/24 05:50 5 MG Rifaximin 550 mg BID PO 10/25/24 22:00 10/26/24 10:02 550 MG Fentanyl Citrate 250 ml @ 2.5 mls/hr Q24H IV 10/26/24 03:45 10/26/24 04:00 2.5 MLS/HR laboratory and microbiology Laboratory Tests 10/26/24 04:48 Test 10/26/24 04:48 Range/Units Serum Glucose 109 H 74-106 mg/dL Date of Service: Oct 26, 2024 Billing Provider: ARSLAN MILAN MD Common Visit Codes: NOT BILLABLE SAMMY HAY RESIDENT Oct 26, 2024 10:58 ARSLAN MILAN MD Oct 29, 2024 11:03
[2024-10-26] MEDS ORDERED: FREE WATER GT SCH (12:00)
--- NOTE | 2024-10-26 12:51 | DVHPN2 ---
Progress Note Date Seen: Oct 26, 2024 Resident Creating Document: YOAN SELLERS RESIDENT Medical Necessity Reason Pt with a Central, PICC or Fol: Yes The following are medically ne: Central Line, Cartwright Catheter Reason for cartwright catheter: Strict I&O Subjective Review of Systems patient seen and examined at bedside intubated has rectal tube and NG tube no GI bleed on levophed Objective vital signs Vital Sign Date Time Temp Pulse Resp B/P (MAP) Pulse Ox O2 Delivery O2 Flow Rate FiO2 10/26/24 12:37 107 21 104/60 (75) 99 30 10/26/24 10:15 97.0 206.6 10/26/24 10:00 Mechanical Ventilator+ 10/25/24 07:45 0 Total Intake and Output 10/25/24 10/25/24 10/26/24 14:59 22:59 06:59 Intake Total 800 ml 929.292 ml 1124.648 ml Output Total 250 ml 1375 ml Balance 800 ml 679.292 ml -250.352 ml medications Current Medications Medications Dose Ordered Sig/Gretchen Route Start Time Stop Time Status Last Admin Dose Admin Midazolam HCl 50 ml @ 1 mls/hr Q24H IV 10/25/24 08:00 10/26/24 12:03 11 MLS/HR Acetaminophen 650 mg Q6HP PRN PO 10/25/24 08:15 Nitroglycerin 0.4 mg Q5MINP PRN SL 10/25/24 08:15 Morphine Sulfate 2 mg Q30M PRN IV 10/25/24 08:15 Multivitamins/ Minerals 1 tab DAILY PO 10/25/24 10:00 10/26/24 10:01 1 TAB Pantoprazole Sodium 40 mg DAILY IV 10/25/24 10:00 10/26/24 10:01 40 MG Propofol 100 ml @ 2.454 mls/ hr Q24H IV 10/25/24 09:45 10/26/24 05:04 24.54 MLS/HR Norepinephrine Bitartrate 250 ml @ 3.75 mls/hr Q24H IV 10/25/24 11:30 10/26/24 03:17 18.75 MLS/HR Lactulose 30 ml Q4HR PO 10/25/24 13:15 10/26/24 10:01 30 ML Midodrine 5 mg TID@0600,1200,1800 PO 10/25/24 18:00 10/26/24 12:04 5 MG Rifaximin 550 mg BID PO 10/25/24 22:00 10/26/24 10:02 550 MG Fentanyl Citrate 250 ml @ 2.5 mls/hr Q24H IV 10/26/24 03:45 10/26/24 04:00 2.5 MLS/HR Purified Water 200 ml Q6HR GT 10/26/24 12:00 UNV Cefepime HCl 50 ml @ 12.5 mls/hr Q8HR IV 10/26/24 14:00 UNV Examination: GENERAL:Normal, HEENT:Abnormal (jaundice), LUNGS:Normal, CVS:Normal, ABDOMEN:Abnormal (ascitis, umbilical hgernia, abdomen solf but disteneded, rectal tube and NG tube.) laboratory and microbiology Laboratory Tests 10/26/24 04:48 Test 10/26/24 04:48 Range/Units Serum Glucose 109 H 74-106 mg/dL Microbiology Date/Time Source Procedure Growth Status 10/25/24 09:20 Voided Urine Urine Culture - Preliminary Resulted 10/25/24 08:18 Sputum Gram Stain Pending Resulted 10/25/24 08:18 Sputum Respiratory Culture - Preliminary Resulted 10/25/24 07:15 Blood Blood Culture - Preliminary Resulted Problem List/Assessment/Plan Problem List/Assessment/Plan Septic shock ?peritonitis Livre cirrhosis due to alcohol abuse metabolic encephalopathy hyperammonemia portal hypertension ANDRÉS due to hemodynamically mediated umbilical hernia anemia thrombocytopenia Plan/Recommendation Dr Gray -Plan for paracentesis as per primary team -continue lactulose 30 ml Q4 via rectal tube and rifaximin via GT tube, monitor ammonia level -continue current management, No active GI bleed, No active GI intervention needed at this point, will consider EGD when he is medically stable -NG tube already inserted -continue monitor liver function -continue protonix 40 mg daily -Continue IV pressor therapy -Antibiotics -Follow labs and replace electrolytes Plan discussed with: Other (father, sister) YOAN SELLERS RESIDENT Oct 26, 2024 12:51
[2024-10-26] MEDS: CEFEPIME 2GM/50ML NS 50 ML IV SCH (13:54)
[2024-10-26] MEDS ORDERED: VANCOMYCIN PER PHARMACY 0 MG IV SCH (14:15)
[2024-10-26] MEDS: VANCOMYCIN 1.5GM/250ML 250 ML IV ONE (18:06)
--- NOTE | 2024-10-26 18:11 | DVHNC2 ---
Procedure - Paracentesis Procedure Note Paracentesis Procedure Note INDICATION: Liver Cirrhosis, Ascites, To rule out SBP PROCEDURE CENTRAL OFFICE SUPERVISOR: Sammy Hay MD, under the guidance of Dr. Panfilo Brandon MD. Ultrasound used to fátima location: Y CONSENT: Intubated and sedated patient in extremely sick condition, the procedure was done under the life saving emergency need for diagnostics and therapy considering indications, risks, and benefits. PROCEDURE SUMMARY: A time-out was performed. My hands were washed immediately prior to the procedure. I wore a surgical cap, mask with protective eyewear, sterile gown and sterile gloves throughout the procedure. The area was cleansed and draped in usual sterile fashion using chlorhexidine scrub. Anesthesia was achieved with 1% lidocaine. The LLQ of the abdomen was prepped and draped in a sterile fashion using chlorhexidine scrub. 1% lidocaine was used to numb the skin, soft tissue and peritoneum. The paracentesis catheter was inserted and advanced with negative pressure until light straw colored fluid was aspirated. Approximately 60 mL of ascitic fluid was collected and sent for laboratory analysis. The catheter was then connected to the vaccutainer and 1.3 liters of additional ascitic fluid were drained. The catheter was removed and no leaking was noted. A bandaid was placed over the puncture wound. The patient tolerated the procedure well without any immediate complications. Estimated blood loss was less than 1 ml. SAMMY HAY RESIDENT Oct 26, 2024 18:11
[2024-10-26 22:04] LABS: Body Fluid White Blood Cells 120 CUMM (0-200)
[2024-10-26 22:05] LABS: Body Fluid Polymorphonuclear 95 % (0-25); Body Fluid Red Blood Cells 10 CUMM (0-2000)
[2024-10-27] VITALS (111 sets, daily range): BP systolic 83–111; BP diastolic 41–65; PULSE 105–122; RESP 13–23; TEMP 97.9–99.1; O2SAT 96–100
[2024-10-27 05:48] LABS: Basophils # (auto) 0 10 ^3/uL (0-0.2); Eosinophils # (auto) 0.2 10 ^3/uL (0-0.8); Lymphocytes # (auto) 0.9 10 ^3/uL (0.4-5.4); Mean Corpuscular Hemoglobin 29.9 pg (28.0-32.0); Mean Corpuscular Hgb Conc. 33.5 g/dL (32.0-36.0); Mean Corpuscular Volume 89.2 fL (80.0-100.0); Monocytes # (auto) 0.9 10 ^3/uL (0-1.3); Platelet Count (auto) 91 10^3/uL (140-450); White Blood Cell 7.3 10^3/uL (4.4-10.8)
[2024-10-27 05:50] LABS: Basophils % (auto) 0.3 % (0.0-2.0); Eosinophils % (auto) 3.2 % (0.0-7.0); Hematocrit 24.3 % (41.0-53.0); Hemoglobin 8.2 g/dL (13.5-17.5); Lymphocytes % (auto) 12.9 % (10.0-50.0); Monocytes % (auto) 11.7 % (0.0-12.0); Neutrophils # (auto) 5.3 10 ^3/uL (1.6-8.6); Neutrophils % (auto) 71.9 % (37.0-80.0); Nucleated Red Blood Cells % 0.2 %; Red Blood Cells 2.72 10^6/uL (4.5-5.90)
[2024-10-27 05:52] LABS: Anion Gap 4 (5-15); Carbon Dioxide 22 mmol/L (20-31); Glucose 94 mg/dL (74-106); Sodium 136 mmol/L (136-145)
--- NOTE | 2024-10-27 05:54 | DVH ---
CHEST RADIOGRAPH Indication: Intubated Technique: Single frontal view of the chest was obtained COMPARISON: XY CHEST PORTABLE on DOS: 10/26/24, XY CHEST PORTABLE on DOS: 10/25/24, XY CHEST PORTABLE o n DOS: 09/22/24, XY CHEST PORTABLE on DOS: 11/20/23, CHEST PORTABLE on DOS: 01/30/21 FINDINGS: Lines and Tubes: Endotracheal tube, enteric catheter and right central venous catheter in satisfactor y position. Lungs: Multifocal airspace disease. Pleura: Small left pleural effusion. No pneumothorax. Cardiomediastinal contours: Unremarkable Bones: Unremarkable IMPRESSION: Lines and tubes in satisfactory position. No significant interval change.
[2024-10-27 06:05] LABS: Alanine Aminotransferase 44 U/L (7-40); Albumin 1.8 g/dL (3.2-4.8); Alkaline Phosphatase 208 U/L (46-116); Aspartate Aminotransferase 98 U/L (13-40); Bilirubin, Total 4.8 mg/dL (0.2-1.0); Blood Urea Nitrogen 44 mg/dL (9-23); Calcium 7.6 mg/dL (8.7-10.4); Chloride 110 mmol/L (98-107); Total Protein 5.3 g/dL (5.7-8.2)
[2024-10-27 06:25] LABS: Anisocytosis Moderate; Tear Drop Cells FEW
[2024-10-27 06:26] LABS: Platelet Estimate Decreased
[2024-10-27 07:37] LABS: Base Excess -4.1 mmol/L (-2.0-3.0)
[2024-10-27 14:22] LABS: Cocaine Screen, Urine Neg (NEGATIVE); Opiate Scree,Urine Neg (NEGATIVE)
[2024-10-27 14:27] LABS: Amphetamine Screen, Urine Neg (NEGATIVE); Barbiturate Scree,Urine Neg (NEGATIVE); Benzodiazephine Screen, Urine Pos (NEGATIVE); Cannabinoid Screen, Urine Neg (NEGATIVE); Phencyclidine Screen, Urine Neg (NEGATIVE)
--- NOTE | 2024-10-27 14:59 | DVHPN2 ---
Subjective seen today bedside, slightly overbreathing vent, off sedation off pressor, not waking up. c/w lactulose >2BM Changes from previous H/P or p: No Changes Gastrointestinal: Abdominal Pain Objective Vitals Vital Signs Date Time Temp Pulse Resp B/P (MAP) Pulse Ox O2 Delivery O2 Flow Rate FiO2 10/27/24 14:30 99.1 117 18 100/59 (73) 98 210.4 10/27/24 14:13 30 10/27/24 14:00 Mechanical Ventilator+ 10/25/24 07:45 0 Intake/Output Intake and Output 10/27/24 07:00 Intake Total 1106.75 ml Output Total 4100 ml Balance -2993.25 ml Intake Oral 280 ml IV Total 826.75 ml Output Urine Total 950 ml Stool Total 1800 ml Other 1350 ml Medications Current Medications Medications Dose Ordered Sig/Gretchen Route Start Time Stop Time Status Last Admin Dose Admin Midazolam HCl 50 ml @ 1 mls/hr Q24H IV 10/25/24 08:00 10/27/24 03:20 4 MLS/HR Acetaminophen 650 mg Q6HP PRN PO 10/25/24 08:15 Nitroglycerin 0.4 mg Q5MINP PRN SL 10/25/24 08:15 Morphine Sulfate 2 mg Q30M PRN IV 10/25/24 08:15 Multivitamins/ Minerals 1 tab DAILY PO 10/25/24 10:00 10/27/24 09:08 1 TAB Pantoprazole Sodium 40 mg DAILY IV 10/25/24 10:00 10/27/24 09:08 40 MG Propofol 100 ml @ 2.454 mls/ hr Q24H IV 10/25/24 09:45 10/26/24 05:04 24.54 MLS/HR Norepinephrine Bitartrate 250 ml @ 3.75 mls/hr Q24H IV 10/25/24 11:30 10/26/24 03:17 18.75 MLS/HR Lactulose 30 ml Q4HR PO 10/25/24 13:15 10/27/24 13:03 30 ML Rifaximin 550 mg BID PO 10/25/24 22:00 10/27/24 09:08 550 MG Fentanyl Citrate 250 ml @ 2.5 mls/hr Q24H IV 10/26/24 03:45 10/26/24 04:00 2.5 MLS/HR Cefepime HCl 50 ml @ 12.5 mls/hr Q8HR IV 10/26/24 14:00 10/27/24 13:02 12.5 MLS/HR Vancomycin HCl 0 ml @ 0 mls/hr UD IV 10/26/24 14:15 Enteral Nutritional Formula 1,000 ml 50ML/HR GT 10/27/24 13:30 Vancomycin HCl 250 ml @ 200 mls/hr Q12H IV 10/27/24 18:00 Dexmedetomidine HCl 400 mcg/ Dextrose 100 ml @ 3.76 mls/hr Q24H IV 10/27/24 15:00 UNV Laboratory Results Laboratory Tests 10/27/24 05:08 Chemistry Test 10/27/24 05:08 Albumin 1.8 g/dL (3.2-4.8) L Calcium Level 7.6 mg/dL (8.7-10.4) L Total Protein 5.3 g/dL (5.7-8.2) L LFT Test 10/27/24 05:08 Alanine Aminotransferase (ALT) 44 U/L (7-40) H Alkaline Phosphatase 208 U/L (46-116) H Aspartate Amino Transferase (AST) 98 U/L (13-40) H Total Bilirubin 4.8 mg/dL (0.2-1.0) H Urinalysis Test 10/25/24 09:20 Urine Color Dark-yellow (Yellow) Urine Clarity Turbid (Clear) H Urine pH 6.0 (5.0-9.0) Urine Specific [place] 1.025 (1.001-1.035) Urine Protein Trace (Negative) H Urine Ketones Negative (Negative) Urine Blood Negative /uL (Negative) Urine Nitrite Negative (Negative) Urine Bilirubin 1+ (Negative) Urine Urobilinogen 4 mg/dL (Negative) H Urine Leukocyte Esterase Negative /uL (Negative) Urine RBC <1 /hpf (0 - 3) Urine Microscopic WBC 2 /HPF (0-3) Urine Squamous Epithelial Cells Few /hpf (<5) Urine Bacteria None seen /hpf (None Seen) Urine Hyaline Casts Many /lpf (0 - 2) Urine Mucus Few (None Seen) Urine Glucose Normal mg/dL (Normal) Blood Gas Results Test 10/27/24 07:22 Arterial Blood pH 7.375 (7.350-7.450) FiO2 % 30.0 Microbiology Microbiology Date/Time Source Procedure Growth Status 10/26/24 17:50 Ascities Fluid Gram Stain Pending Resulted 10/26/24 17:50 Ascities Fluid Body Fluid Culture - Preliminary Resulted 10/26/24 09:20 Nose MRSA Screen - Final Complete 10/25/24 09:20 Voided Urine Urine Culture - Final Complete 10/25/24 08:18 Sputum Gram Stain - Final Resulted 10/25/24 08:18 Sputum Respiratory Culture - Preliminary Resulted 10/25/24 07:15 Blood Blood Culture - Preliminary Micrococcus species Resulted Assessment/Plan Assessment/Plan A. Neurolgy: # sedation for mechanical ventilation synchronization: Fentanyl and Versed, titratable. RASS -2-3 # toxic/metabolic hepatic encephalopathy: Presented with altered level of consciousness likely due to the above, multifactorial possibly due to hyperammonemia, sepsis, bacteremia, infection, electrolyte disturbances. # chronic alcohol abuse: Despite having progressed to liver cirrhosis in her early 30s patient continues to drink, needs further evaluation and supportive care and 12 step alcohol rehabilitation program to be recommended at recovery of the acute stage. # hyperammonemia: Presented in 200s, status post verify mixed seen and lactulose with target of bowel movement 2-3 times at least a day, on rectal tube, target achieved, repeat ammonia 82. B. Cardiology: # hypotension: Likely due to underlying septic shock, on Levophed titratable, around 4, we will titrate as tolerated, with target map over 65. Although this might be modified as underlying liver cirrhosis could be playing a role in maintaining blood pressure. # history of hypertension: Known hypertensive, held all antihypertensives, target blood pressure for this gentleman will be 140/90 or below as per aha/ACC guidelines. C. Respiratory: # acute respiratory failure: Continue mechanical ventilation with ETT in place, daily chest x-ray, repositioning, respiratory therapy input appreciated, AC/VC/VT 450, peep of 5, FiO2 of 30%, minimal when sitting saturating well of SpO2 near 100%. #possible aspiration pneumonia: Under level of consciousness might be contributory to respiratory failure, we will treat as aspiration pneumonia, respiratory culture pending, broad-spectrum antibiotic to continue. D. Gastrointenstinal: # liver cirrhosis due to alcohol abuse: Not a great candidate for liver transplant but needs further follow up with GI and hepatology, lifestyle modification and risk reduction prior to further life-saving clinical discussion. # portal hypertension: Likely due to cirrhosis. # ascites: 1.4 L approximately fluid aspirated both for therapeutic and diagnostic purpose, to rule out spontaneous bacterial peritonitis, sample, culture, lab under work. Might need further paracentesis in this hospitalization. # umbilical hernia: Stable, on incarcerated, previously known. No intervention needed at this point. #NG tube in place, nutrition to continue with tube feeding as tolerated, residual to check every 12 hours. If needed add Reglan 5 t.i.d. tomorrow. # cholelithiasis without cholecystitis # hyperbilirubinemia 5.5, carolann icterus. # transaminitis: Typical 2 to 1 pattern of alcoholics, follow up INR/PT/PTT, on daily CMP. # acute cholecystitis not excluded: Both U/S and abdominal CT could not get any at possibly be of cholecystitis, moves further clinical evaluation and once patient is more stable might consider HIDA scan. We will continue broad- spectrum antibiotics as of now. E. Geniotourinary: # on Pool's catheter, close input output to check. F. Infectious Disease: # Gram-positive bacteremia, vancomycin added, previously patient on cefepime, rifampin to cover for septic shock and ascites related complications. G. Hematology & Oncology: # pancytopenia secondary to liver cirrhosis and possible hepatosplenomegaly # thrombocytopenia: Close follow up, # anemia: Transfusion threshold 7 H. Nephrology: # hyponatremia: Corrected for hypoalbuminemia, likely due to cirrhosis, close follow up of CMP daily. Treat underlying cause. Avoid over-correction. # ANDRÉS likely due to vasomotor nephropathy: Multifactorial due to underlying sepsis, possible hepatorenal, on prerenal contributory. Close monitoring of input output, avoid nephrotoxics, close input output to check for urine output/anuria. I. Endocrine: # overweight with BMI of 26.8 # moderate protein energy malnutrition likely due to underlying alcoholism and poor oral intake, dietitian consult when appropriate. J. MSK: # poor muscle mass, likely wound benefitted from physical therapy after acute care. . K. Prophylaxis: PPI: IV PPI DVT: Avoid heparin ambulated products, due to thrombocytopenia. L. Lines & Drains (with insertion date): IV 227 Central 227 Arterial line not needed M. Drips: Fentanyl, Versed, Levophed N. Disposition: Remains in [facility] The patient care consists of total 55 minutes Plan discussed with: Other My Orders Orders - VALENTÍN CELAYA MD Procedure Category Date Status Time Nutritional PHA 10/27/24 In Process Supplements (Jevity 13:30 Cpap Trial For Am ORDERS 10/28/24 Transmitted 04:00 Cpap/Sed Vacation Med ORDERS 10/28/24 Transmitted Weaning 04:00 Date of Service: Oct 27, 2024 Billing Provider: VALENTÍN CELAYA MD Common Visit Codes: 18786-[id number] CARE 30-74 MIN VALENTÍN CELAYA MD Oct 27, 2024 14:59
[2024-10-27] MEDS: VANCOMYCIN 1GM/250ML KIT 250 ML IV SCH (17:29)
--- NOTE | 2024-10-27 18:04 | DVHPN2 ---
Progress Note - Dictate Date Seen: Oct 27, 2024 Medical Necessity Reason Pt with a Central, PICC or Fol: Yes The following are medically ne: Central Line, Cartwright Catheter Reason for cartwright catheter: Strict I&O Subjective The patient is a 29-year-old male with a prior history of cirrhosis due to alcohol abuse, decompensations including ascites, esophageal varices, recent admission for paracentesis, returns with abdominal pain, altered mental status, elevated ammonia, hypotension suspected sepsis on IV pressors. Patient is seen in ICU intubated and sedated; small volume paracentesis was done 60 cc of fluid was aspirated and sent for analysis Ascitic fluid showed 120 WBC 90 5% polymorphs, the count is less than 250 that is required for diagnosis of SBP but this may be because the patient has been treated with antibiotics No GI bleed reported; hemoglobin is at 8.3, liver enzymes and kidney function are improving; repeat ammonia level is normal vital signs Vital Sign Date Time Temp Pulse Resp B/P (MAP) Pulse Ox O2 Delivery O2 Flow Rate FiO2 10/27/24 17:56 21 98 Mechanical Ventilator+ 30 30 10/27/24 17:56 116 10/27/24 17:45 99.0 107/57 (74) 210.2 10/25/24 07:45 0 Total Intake and Output 10/26/24 10/26/24 10/27/24 15:00 23:00 07:00 Intake Total 348.00 ml 484.75 ml 274.0 ml Output Total 2550 ml 1550 ml Balance 348.00 ml -2065.25 ml -1276.0 ml medications Current Medications Medications Dose Ordered Sig/Gretchen Route Start Time Stop Time Status Last Admin Dose Admin Midazolam HCl 50 ml @ 1 mls/hr Q24H IV 10/25/24 08:00 10/27/24 03:20 4 MLS/HR Acetaminophen 650 mg Q6HP PRN PO 10/25/24 08:15 Nitroglycerin 0.4 mg Q5MINP PRN SL 10/25/24 08:15 Morphine Sulfate 2 mg Q30M PRN IV 10/25/24 08:15 Multivitamins/ Minerals 1 tab DAILY PO 10/25/24 10:00 10/27/24 09:08 1 TAB Pantoprazole Sodium 40 mg DAILY IV 10/25/24 10:00 10/27/24 09:08 40 MG Propofol 100 ml @ 2.454 mls/ hr Q24H IV 10/25/24 09:45 10/26/24 05:04 24.54 MLS/HR Norepinephrine Bitartrate 250 ml @ 3.75 mls/hr Q24H IV 10/25/24 11:30 10/26/24 03:17 18.75 MLS/HR Lactulose 30 ml Q4HR PO 10/25/24 13:15 10/27/24 17:36 30 ML Rifaximin 550 mg BID PO 10/25/24 22:00 10/27/24 09:08 550 MG Fentanyl Citrate 250 ml @ 2.5 mls/hr Q24H IV 10/26/24 03:45 10/26/24 04:00 2.5 MLS/HR Cefepime HCl 50 ml @ 12.5 mls/hr Q8HR IV 10/26/24 14:00 10/27/24 13:02 12.5 MLS/HR Vancomycin HCl 0 ml @ 0 mls/hr UD IV 10/26/24 14:15 Enteral Nutritional Formula 1,000 ml 50ML/HR GT 10/27/24 13:30 Vancomycin HCl 250 ml @ 200 mls/hr Q12H IV 10/27/24 18:00 10/27/24 17:29 200 MLS/HR Dexmedetomidine HCl 400 mcg/ Dextrose 100 ml @ 3.76 mls/hr Q24H IV 10/27/24 15:00 Hold objective Examination: GENERAL:Normal, HEENT:Abnormal (jaundice), LUNGS:Normal, CVS:Normal, ABDOMEN:Abnormal (ascitis, umbilical hgernia, abdomen solf but disteneded, rectal tube and NG tube.) laboratory and microbiology Laboratory Tests 10/27/24 05:08 Test 10/27/24 05:08 Range/Units Serum Glucose 94 74-106 mg/dL Problems(with codes): (1) Intractable abdominal pain (2) Elevated liver enzymes (3) Gallstones (4) Splenomegaly (5) Pancytopenia (6) Alcohol abuse (7) Liver cirrhosis (8) Hepatic encephalopathy Prognosis Plan Continue IV antibiotics Patient is being tapered off the Levophed He will be started on enteral tube feedings tonight Continue to monitor labs and once clinically stable try a CPAP trial Supportive care I will follow up patient with you Dietary Evaluation Review Recommendations by RD: PPN/TPN Comments: 1) If GI route is preferred, consider Nutrihelp @ 60 mL/hr goal rate as tolerated. Initiate free water flushes @ 200 mL Q6. TF regimen will provide 2160 kcals, 58g Pro, and 1938 mL fuid (including flushes) per 24 hrs. Goal rate will meet ~ 82% daily estimated energy needs and ~ 97% daily estaimted protein needs) 2) If patient remains NPO for more than 7 days, consider TPN to meet at least 75% of estimated needs 3) Advance to hepatic diet when medically feasible, pending PRODUCT CONSULTANT approval 4) Continue to monitor I&O, labs, fluid retention, and skin integrity Expected Outcomes/Goals: 1) patient to receive nutrition within 7 days 2) labs to improve 3) diet to advance 4) f/u in 3 days Plan discussed with: Other ([facility] Nurse) KATELYN JOYCE MD Oct 27, 2024 18:04
--- NOTE | 2024-10-27 23:20 | DVHINCON2 ---
Date of service: Oct 27, 2024 Referring Physician Sammy Nova MD Reason for Consultation Acute hypoxic respiratory failure, on mechanical ventilator. Ascites History of Present Illness The patient is a 29-year-old man with past medical history of hypertension, alcoholic liver cirrhosis, ascites, esophageal varices, recent admission for paracentesis, returns to ED with abdominal pain, altered mental status, elevated ammonia, and hypotension, suspected sepsis on IV pressors. Patient has been intubated. GI consultation obtained. History is obtained from the chart. Patient was admitted for further care and pulmonary consultation is requested for evaluation and management due to the above findings. Review of Systems: 14-point review of systems negative unless otherwise noted above. Past Medical History: Hypertension and liver cirrhosis Past Surgical History: EGD Medications: Reviewed. Allergies: No known drug allergies. Family History: Cirrhosis of liver Colon cancer Prostate cancer Hypertension. Social History: Nonsmoker. No alcohol or illicit drug use. Family History: Cirrhosis of liver G8 MOTHER Colon cancer G8 FATHER FH: prostate cancer G8 FATHER Hypertension G8 MOTHER G8 FATHER Allergies: Coded Allergies: NO KNOWN ALLERGIES (Unverified , 01/27/21) Home Meds Active Scripts Lactulose (Lactulose) 10 Gm Chris, 30 GM PO TID for 30 Days, #30 PACK 0 Refills Please take lactulose 30 mL 3 times daily Prov:WILL SHIELDS RESIDENT 10/19/24 Multiple Vitamins W/ Minerals (Mvi W/ Minerals Tab) 1 Tab Tb, 1 TAB PO DAILY for 30 Days, #30 TAB Prov:DHEERAJ MONTANO MD 09/27/24 Metronidazole (Flagyl) 500 Mg Tab, 500 MG PO TID for 7 Days, #21 TAB Prov:DHEERAJ MONTANO MD 09/27/24 Spironolactone (Aldactone) 100 Mg Tab, 100 MG PO DAILY for 30 Days, #30 TAB 3 Refills Prov:DHEERAJ MONTANO MD 09/27/24 Furosemide (Lasix) 40 Mg Tab, 40 MG PO QAM for 30 Days, #30 TAB 3 Refills Prov:DHEERAJ MONTANO MD 09/27/24 Pantoprazole Sodium Sesquihydr (Protonix) 40 Mg Tab, 40 MG PO DAILY for 30 Days, #30 TAB 2 Refills Prov:DHEERAJ MONTANO MD 09/27/24 Chlordiazepoxide Hcl (Ni-1) (I (Librium) 10 Mg Cap, 10 MG PO Q6HR PRN for 10 Days, #30 CAP 0 Refills Prov:MARCELO GAFFNEY MD 07/21/24 Spironolactone (Aldactone) 25 Mg Tab, 1 TAB PO DAILY for 30 Days, #30 TAB 5 Refills Prov:JO ELDER MD 11/20/23 Furosemide (Lasix) 40 Mg Tab, 40 MG PO DAILY for 30 Days, #30 TAB Prov:JO ELDER MD 11/20/23 Reported Medications Carvedilol (Carvedilol) 3.125 Mg Tab, 1 10/25/24 Lisinopril (Lisinopril) 2.5 Mg Tab, 2.5 MG PO DAILY for 30 Days, MG 10/13/24 Thiamine Hcl (VITAMIN B-1) 100 Mg Tb, 1 DAILY 10/13/24 Furosemide (Furosemide) 40 Mg Tab, 40 MG PO DAILY for 30 Days 11/19/23 Current Medications Current Medications Medications (Trade) Dose Ordered Sig/Gretchen Route PRN Reason Start Time Stop Time Status Last Admin Enteral Nutritional Formula (Jevity 1.2 Antoine/ Fiber) 1,000 ml 50ML/HR GT 10/27/24 13:30 Vancomycin HCl 250 ml @ 200 mls/hr Q12H IV 10/27/24 18:00 10/27/24 17:29 Dexmedetomidine HCl 400 mcg/ Dextrose 100 ml @ 3.76 mls/hr Q24H IV 10/27/24 15:00 Hold Vital Signs Vital Signs Date Time Temp Pulse Resp B/P (MAP) Pulse Ox O2 Delivery O2 Flow Rate FiO2 10/27/24 22:00 30 10/27/24 22:00 18 100 Mechanical Ventilator+ 10/27/24 22:00 111 10/27/24 20:40 103/57 (72) 10/27/24 19:00 98.8 209.8 10/25/24 07:45 0 Physical Exam Gen.: Patient lying in bed in medical ICU. Intubated on mechanical ventilator. Head: Normocephalic, atraumatic. Eyes: PERRLA. Ears: Normal external anatomy. Throat: Endotracheal tube and orogastric tube in place. Neck: Supple, trachea midline. Chest: Transmitted breath sounds bilaterally. Decreased air entry bilaterally. No wheezing. Bibasilar crackles. Cardiovascular: Positive S1, positive S2. Regular rate and rhythm. Abdomen: Positive bowel sounds in all 4 quadrants. Soft, nontender, nondistended. : Pool in place. Normal external genitalia. Rectal: Deferred. Skin: Warm, dry. Intact. Extremities: 2+ radial pulses bilaterally. No lower extremity edema. Neuro: Off sedation Labs/Diagnostic Data Labs Test 10/27/24 13:32 10/27/24 07:22 10/27/24 05:08 10/26/24 17:50 Range/Units Ammonia 18 11-32 umol/L Urine Opiates Screen Neg NEGATIVE Urine Fentanyl Screen Pos NEGATIVE Urine Barbiturates Screen Neg NEGATIVE Urine Phencyclidine Screen Neg NEGATIVE Urine Amphetamines Screen Neg NEGATIVE Urine Benzodiazepines Screen Pos NEGATIVE Urine Cocaine Screen Neg NEGATIVE Urine Cannabinoids Screen Neg NEGATIVE Plasma/Serum Blood Alcohol < 3.0 <10 mg/dL Blood Gas Specimen Type Arterial Blood Gas Sample Site Right radial Blood Gas Patient Temperature 37.0 Arterial Blood Date Drawn [id number] Arterial Blood pH 7.375 7.350-7.450 Arterial Blood Partial Pressure CO2 36.1 35.0-48.0 mmHg Arterial Blood Partial Pressure O2 101.1 83.0-108.0 mmHg Arterial Blood HCO3 20.6 L 21.0-28.0 mmol/L Arterial Blood Oxygen Saturation 96.6 94.0-98.0 % Arterial Blood Base Excess -4.1 L -2.0-3.0 mmol/L Arterial Blood Oxyhemoglobin 95.5 94.0-98.0 % Arterial Blood Carboxyhemoglobin 0.7 0.5-1.5 % Arterial Blood Methemoglobin 0.4 0.0-1.5 % John Test Modified Blood Gas Total Hemoglobin 8.60 L 13.5-17.5 g/dL Blood Gas Set Respiration Rate 18.0 Blood Gas Modality Vent - ac FiO2 % 30.0 Blood Gas Tidal Volume 450.0 Blood Gas PEEP or CPAP 5.0 White Blood Count 7.3 4.4-10.8 10^3/uL Red Blood Count 2.72 L 4.5-5.90 10^6/uL Hemoglobin 8.2 L 13.5-17.5 g/dL Hematocrit 24.3 #L 41.0-53.0 % Mean Corpuscular Volume 89.2 80.0-100.0 fL Mean Corpuscular Hemoglobin 29.9 28.0-32.0 pg Mean Corpuscular Hemoglobin Concent 33.5 32.0-36.0 g/dL Red Cell Distribution Width 34.0 H 11.8-14.3 % Platelet Count 91 L 140-450 10^3/uL Mean Platelet Volume 8.7 6.9-10.8 fL Neutrophils (%) (Auto) 71.9 37.0-80.0 % Lymphocytes (%) (Auto) 12.9 10.0-50.0 % Monocytes (%) (Auto) 11.7 0.0-12.0 % Eosinophils (%) (Auto) 3.2 0.0-7.0 % Basophils (%) (Auto) 0.3 0.0-2.0 % Neutrophils # (Auto) 5.3 1.6-8.6 10 ^3/uL Lymphocytes # (Auto) 0.9 0.4-5.4 10 ^3/uL Monocytes # (Auto) 0.9 0-1.3 10 ^3/uL Eosinophils # (Auto) 0.2 0-0.8 10 ^3/uL Basophils # (Auto) 0 0-0.2 10 ^3/uL Nucleated Red Blood Cells 0.2 % Platelet Estimate Decreased Anisocytosis (manual) Moderate Tear Drop Cells Few Schistocytes Few Sodium Level 136 136-145 mmol/L Potassium Level 5.0 3.5-5.1 mmol/L Chloride Level 110 H 98-107 mmol/L Carbon Dioxide Level 22 20-31 mmol/L Anion Gap 4 L 5-15 Blood Urea Nitrogen 44 H 9-23 mg/dL Creatinine 1.10 0.700-1.30 mg/dL Glomerular Filtration Rate Calc 92 >90 mL/min BUN/Creatinine Ratio 40.0 H 10.0-20.0 Serum Glucose 94 74-106 mg/dL Calcium Level 7.6 L 8.7-10.4 mg/dL Total Bilirubin 4.8 H 0.2-1.0 mg/dL Aspartate Amino Transferase (AST) 98 H 13-40 U/L Alanine Aminotransferase (ALT) 44 H 7-40 U/L Alkaline Phosphatase 208 H 46-116 U/L Total Protein 5.3 L 5.7-8.2 g/dL Albumin 1.8 L 3.2-4.8 g/dL Random Vancomycin Level 9.6 5-10 ug/mL Body Fluid Source Peritoneal fluid Body Fluid pH 8.0 Body Fluid WBC (Manual) 120 0-200 CUMM Body Fluid RBC (Manual) 10 0-2000 CUMM Body Fluid Mononuclear Cells 5 % Body Fluid Polymorphonuclear Cells 95 H 0-25 % Test 10/26/24 04:48 10/25/24 09:20 10/25/24 08:27 10/25/24 07:15 Range/Units Target Cells Few Prothrombin Time 16.4 H 9.3-11.8 sec Prothrombin Time INR 1.62 H 0.9-1.15 Activated Partial Thromboplast Time 43.3 H 24.5-34.5 SEC Urine Color Dark-yellow Yellow Urine Clarity Turbid H Clear Urine pH 6.0 5.0-9.0 Urine Specific [place] 1.025 1.001-1.035 Urine Protein Trace H Negative Urine Ketones Negative Negative Urine Blood Negative Negative /uL Urine Nitrite Negative Negative Urine Bilirubin 1+ Negative Urine Urobilinogen 4 H Negative mg/dL Urine Leukocyte Esterase Negative Negative /uL Urine RBC <1 0 - 3 /hpf Urine Microscopic WBC 2 0-3 /HPF Urine Squamous Epithelial Cells Few <5 /hpf Urine Bacteria None seen None Seen /hpf Urine Hyaline Casts Many 0 - 2 /lpf Urine Mucus Few None Seen Urine Glucose Normal Normal mg/dL Lactic Acid Level 3.3 *H 0.4-2.0 mmol/L B-Type Natriuretic Peptide 17.38 0-100 pg/mL Microbiology Date/Time Source Procedure Growth Status 10/26/24 17:50 Ascities Fluid Gram Stain Pending Resulted 10/26/24 17:50 Ascities Fluid Body Fluid Culture - Preliminary Resulted 10/26/24 09:20 Nose MRSA Screen - Final Complete 10/25/24 09:20 Voided Urine Urine Culture - Final Complete 10/25/24 08:18 Sputum Gram Stain - Final Resulted 10/25/24 08:18 Sputum Respiratory Culture - Preliminary Resulted 10/25/24 07:15 Blood Blood Culture - Preliminary Micrococcus species Resulted Assessment Impression: Acute hypoxic respiratory failure On mechanical ventilator Intractable abdominal pain Lactic acidosis Transaminitis Pancytopenia History of liver cirrhosis Ascites Splenomegaly Cholelithiasis Plan: s/p intubation on mechanical ventilator. CXR image and report reviewed. Devices in place. Multifocal airspace disease. Small left pleural effusion.. ABG reviewed, compensated. On AC mode; RR 18, VT 450, PEEP 5, FiO2 30% Titrate FIO2 to keep O2 saturation above 90%. VAP bundle. Daily ABG and CXR while intubated Off sedation at noon Start Precedex Off Levophed since midnight Monitor hemodynamics Continue lactulose Continue antibiotics. F/u cultures. Monitor renal function Monitor electrolytes. Supplement as necessary. Monitor ins and outs. GI prophylaxis. DVT prophylaxis. Prognosis: Poor given patient's multiple co-morbidities. Condition: Critical Rest of plan per hospitalist and other consultants. A total of 35 minutes of critical care time was spent reviewing the patient record, examining the patient, making a diagnostic and therapeutic plan, discussing this plan with the medical personnel, following up on diagnostic studies and following the patient for clinical stability excluding any and all procedures. At least 50% of this time was spent in direct, [id number] contact. Thank you Dr. Nova, for allowing me to participate in this patient's care. Further recommendations will depend on the patient's clinical course. Please do not hesitate to contact me if you have any questions or concerns. This medical document was created using an electronic medical record system with [employer] computerized dictation system. Although these documentations are being carefully reviewed, there may still be some phonetic and typographical changes. The errors are purely typographical, due to imperfection on the software program, and do not reflect any compromise in the patient's medical care. Plan discussed with: Other (BRENT Salgado/Dr. Nova) EILEEN LORENZO MD Oct 27, 2024 23:20
[2024-10-28] VITALS (111 sets, daily range): BP systolic 104–122; BP diastolic 53–78; PULSE 105–126; RESP 13–25; TEMP 98.2–100.4; O2SAT 99–100
[2024-10-28 05:52] LABS: Basophils # (auto) 0 10 ^3/uL (0-0.2); Eosinophils # (auto) 0.2 10 ^3/uL (0-0.8); Hemoglobin 8.2 g/dL (13.5-17.5); Lymphocytes # (auto) 0.9 10 ^3/uL (0.4-5.4); Nucleated Red Blood Cells % 0.1 %
[2024-10-28 05:55] LABS: Basophils % (auto) 0.2 % (0.0-2.0); Hematocrit 25.4 % (41.0-53.0); Mean Corpuscular Hemoglobin 29.2 pg (28.0-32.0); Mean Corpuscular Hgb Conc. 32.4 g/dL (32.0-36.0); Monocytes % (auto) 12.2 % (0.0-12.0); Neutrophils # (auto) 6.5 10 ^3/uL (1.6-8.6); Neutrophils % (auto) 75.6 % (37.0-80.0); Platelet Count (auto) 92 10^3/uL (140-450); Red Blood Cells 2.82 10^6/uL (4.5-5.90); White Blood Cell 8.6 10^3/uL (4.4-10.8)
[2024-10-28 06:12] LABS: Potassium 4.8 mmol/L (3.5-5.1); Sodium 140 mmol/L (136-145)
[2024-10-28 06:13] LABS: Anion Gap 5 (5-15); Carbon Dioxide 21 mmol/L (20-31)
[2024-10-28 06:16] LABS: Calcium 7.7 mg/dL (8.7-10.4); Chloride 114 mmol/L (98-107)
[2024-10-28 06:18] LABS: BUN/Creatinine Ratio 37.2 (10.0-20.0)
[2024-10-28 06:20] LABS: Blood Urea Nitrogen 35 mg/dL (9-23); Glucose 127 mg/dL (74-106); Magnesium 3.1 mg/dL (1.6-2.6); Phosphorus 3.5 mg/dL (2.4-5.1)
--- NOTE | 2024-10-28 06:22 | DVH ---
CHEST RADIOGRAPH Indication: Intubated Technique: Single frontal view of the chest was obtained COMPARISON: XY CHEST PORTABLE on DOS: 10/27/24, XY CHEST PORTABLE on DOS: 10/26/24, XY CHEST PORTABLE on DOS: 10/25/24, XY CHEST PORTABLE on DOS: 09/22/24, XY CHEST PORTABLE on DOS: 11/20/23 FINDINGS: Lines and Tubes: Endotracheal tube, enteric catheter and right central venous catheter in satisfactor y position. Lungs: Congestion. Pleura: No effusion. No pneumothorax. Cardiomediastinal contours: Unremarkable Bones: Unremarkable IMPRESSION: Lines and tubes in satisfactory position. No significant interval change.
[2024-10-28 06:49] LABS: Red Cell Distribution Width 33.3 % (11.8-14.3)
[2024-10-28 09:33] LABS: Anisocytosis Moderate; Platelet Estimate Decreased
[2024-10-28 09:34] LABS: Ovalocytes FEW; Target Cell FEW
--- NOTE | 2024-10-28 11:19 | DVHPN2 ---
Subjective seen today bedside, apneic on cpap, grimacing to pain, opening eyes on calling name, not following commands. c/w lactulose, abx. daily SAT SBT. off pressors [address] head Reviewed: Care Plan Changes from previous H/P or p: No Changes Gastrointestinal: Abdominal Pain Objective Vitals Vital Signs Date Time Temp Pulse Resp B/P (MAP) Pulse Ox O2 Delivery O2 Flow Rate FiO2 10/28/24 09:47 30 10/28/24 09:47 117 10/28/24 09:47 18 100 Mechanical Ventilator+ 10/28/24 09:45 99.1 118/67 (84) 210.4 Intake/Output Intake and Output 10/28/24 07:00 Intake Total 1125.5 ml Output Total 2100 ml Balance -974.5 ml Intake Oral 100 ml IV Total 665.5 ml Tube Feeding 320 ml Other 40 ml Output Urine Total 750 ml Stool Total 1350 ml Medications Current Medications Medications Dose Ordered Sig/Gretchen Route Start Time Stop Time Status Last Admin Dose Admin Midazolam HCl 50 ml @ 1 mls/hr Q24H IV 10/25/24 08:00 10/27/24 03:20 4 MLS/HR Acetaminophen 650 mg Q6HP PRN PO 10/25/24 08:15 Nitroglycerin 0.4 mg Q5MINP PRN SL 10/25/24 08:15 Morphine Sulfate 2 mg Q30M PRN IV 10/25/24 08:15 Multivitamins/ Minerals 1 tab DAILY PO 10/25/24 10:00 10/28/24 07:43 1 TAB Pantoprazole Sodium 40 mg DAILY IV 10/25/24 10:00 10/28/24 07:43 40 MG Propofol 100 ml @ 2.454 mls/ hr Q24H IV 10/25/24 09:45 10/26/24 05:04 24.54 MLS/HR Norepinephrine Bitartrate 250 ml @ 3.75 mls/hr Q24H IV 10/25/24 11:30 10/26/24 03:17 18.75 MLS/HR Lactulose 30 ml Q4HR PO 10/25/24 13:15 10/28/24 09:58 30 ML Rifaximin 550 mg BID PO 10/25/24 22:00 10/28/24 07:44 550 MG Fentanyl Citrate 250 ml @ 2.5 mls/hr Q24H IV 10/26/24 03:45 10/26/24 04:00 2.5 MLS/HR Cefepime HCl 50 ml @ 12.5 mls/hr Q8HR IV 10/26/24 14:00 10/28/24 05:46 12.5 MLS/HR Vancomycin HCl 0 ml @ 0 mls/hr UD IV 10/26/24 14:15 Enteral Nutritional Formula 1,000 ml 50ML/HR GT 10/27/24 13:30 Vancomycin HCl 250 ml @ 200 mls/hr Q12H IV 10/27/24 18:00 10/28/24 05:46 200 MLS/HR Dexmedetomidine HCl 400 mcg/ Dextrose 100 ml @ 3.76 mls/hr Q24H IV 10/27/24 15:00 Hold Laboratory Results Laboratory Tests 10/28/24 05:27 Chemistry Test 10/28/24 05:27 10/28/24 05:37 Calcium Level 7.7 mg/dL (8.7-10.4) L Magnesium Level 3.1 mg/dL (1.6-2.6) H Phosphorus Level 3.5 mg/dL (2.4-5.1) Albumin Pending Total Protein Pending LFT Test 10/28/24 05:37 Alanine Aminotransferase (ALT) Pending Alkaline Phosphatase Pending Aspartate Amino Transferase (AST) Pending Direct Bilirubin Pending Total Bilirubin Pending Urinalysis Test 10/25/24 09:20 Urine Color Dark-yellow (Yellow) Urine Clarity Turbid (Clear) H Urine pH 6.0 (5.0-9.0) Urine Specific [place] 1.025 (1.001-1.035) Urine Protein Trace (Negative) H Urine Ketones Negative (Negative) Urine Blood Negative /uL (Negative) Urine Nitrite Negative (Negative) Urine Bilirubin 1+ (Negative) Urine Urobilinogen 4 mg/dL (Negative) H Urine Leukocyte Esterase Negative /uL (Negative) Urine RBC <1 /hpf (0 - 3) Urine Microscopic WBC 2 /HPF (0-3) Urine Squamous Epithelial Cells Few /hpf (<5) Urine Bacteria None seen /hpf (None Seen) Urine Hyaline Casts Many /lpf (0 - 2) Urine Mucus Few (None Seen) Urine Glucose Normal mg/dL (Normal) Microbiology Microbiology Date/Time Source Procedure Growth Status 10/26/24 17:50 Ascities Fluid Gram Stain Pending Resulted 10/26/24 17:50 Ascities Fluid Body Fluid Culture - Preliminary Resulted 10/26/24 09:20 Nose MRSA Screen - Final Complete 10/25/24 09:20 Voided Urine Urine Culture - Final Complete 10/25/24 08:18 Sputum Gram Stain - Final Resulted 10/25/24 08:18 Sputum Respiratory Culture - Preliminary Resulted 10/25/24 07:15 Blood Blood Culture - Final Escherichia coli#2 Micrococcus species Complete Assessment/Plan Assessment/Plan A. Neurolgy: # off sedation, not waking up # toxic/metabolic hepatic encephalopathy: Presented with altered level of consciousness likely due to the above, multifactorial possibly due to hyperammonemia, sepsis, bacteremia, infection, electrolyte disturbances. # chronic alcohol abuse: Despite having progressed to liver cirrhosis in her early 30s patient continues to drink, needs further evaluation and supportive care and 12 step alcohol rehabilitation program to be recommended at recovery of the acute stage. # hyperammonemia: resolved, regardless will c/w lactulose as encephalopathy is not yet resolved B. Cardiology: # hypotension: Likely due to underlying septic shock, on Levophed titratable, around 4, we will titrate as tolerated, with target map over 65. Although this might be modified as underlying liver cirrhosis could be playing a role in maintaining blood pressure. bridged with midodrine now resolved # history of hypertension: Known hypertensive, held all antihypertensives, target blood pressure for this gentleman will be 140/90 or below as per aha/ACC guidelines. C. Respiratory: # acute respiratory failure: Continue mechanical ventilation with ETT in place, daily chest x-ray, repositioning, respiratory therapy input appreciated, AC/VC/VT 450, peep of 5, FiO2 of 30%, minimal when sitting saturating well of SpO2 near 100%. #possible aspiration pneumonia: Under level of consciousness might be contributory to respiratory failure, we will treat as aspiration pneumonia, respiratory culture pending, broad-spectrum antibiotic to continue. D. Gastrointenstinal: # liver cirrhosis due to alcohol abuse: Not a great candidate for liver transplant but needs further follow up with GI and hepatology, lifestyle modification and risk reduction prior to further life-saving clinical discussion. # portal hypertension: Likely due to cirrhosis. # ascites: 1.4 L approximately fluid aspirated both for therapeutic and diagnostic purpose, to rule out spontaneous bacterial peritonitis, sample, culture, lab under work. Might need further paracentesis in this hospitalization. # umbilical hernia: Stable, on incarcerated, previously known. No intervention needed at this point. #NG tube in place, nutrition to continue with tube feeding as tolerated, residual to check every 12 hours. If needed add Reglan 5 t.i.d. tomorrow. # cholelithiasis without cholecystitis # hyperbilirubinemia 5.5, carolann icterus. # transaminitis: Typical 2 to 1 pattern of alcoholics, follow up INR/PT/PTT, on daily CMP. # acute cholecystitis not excluded: Both U/S and abdominal CT could not get any at possibly be of cholecystitis, moves further clinical evaluation and once patient is more stable might consider HIDA scan. We will continue broad- spectrum antibiotics as of now. E. Geniotourinary: # on Pool's catheter, close input output to check. F. Infectious Disease: # Gram-positive bacteremia, vancomycin added, previously patient on cefepime, rifampin to cover for septic shock and ascites related complications. G. Hematology & Oncology: # pancytopenia secondary to liver cirrhosis and possible hepatosplenomegaly # thrombocytopenia: Close follow up, # anemia: Transfusion threshold 7 H. Nephrology: # hyponatremia: Corrected for hypoalbuminemia, likely due to cirrhosis, close follow up of CMP daily. Treat underlying cause. Avoid over-correction. # ANDRÉS likely due to vasomotor nephropathy: Multifactorial due to underlying sepsis, possible hepatorenal, on prerenal contributory. Close monitoring of input output, avoid nephrotoxics, close input output to check for urine output/anuria. I. Endocrine: # overweight with BMI of 26.8 # moderate protein energy malnutrition likely due to underlying alcoholism and poor oral intake, dietitian consult when appropriate. J. MSK: # poor muscle mass, likely wound benefitted from physical therapy after acute care. . K. Prophylaxis: PPI: IV PPI DVT: Avoid heparin ambulated products, due to thrombocytopenia. L. Lines & Drains (with insertion date): IV 227 Central 227 Arterial line not needed M. Drips: Fentanyl, Versed, Levophed N. Disposition: Remains in [facility] critical care consists of total 45minutes Plan discussed with: Other My Orders Orders - VALENTÍN CELAYA MD Procedure Category Date Status Time Nutritional PHA 10/27/24 In Process Supplements (Jevity 13:30 Cpap Trial For Am ORDERS 10/28/24 Transmitted 04:00 Cpap/Sed Vacation Med ORDERS 10/28/24 Transmitted Weaning 04:00 Date of Service: Oct 28, 2024 Billing Provider: VALENTÍN CELAYA MD Common Visit Codes: 65631-[id number] CARE 30-74 MIN VALENTÍN CELAYA MD Oct 28, 2024 11:19
[2024-10-28 11:31] LABS: Bilirubin, Direct 3.8 mg/dL (<0.3); Bilirubin, Total 4.8 mg/dL (0.2-1.0)
--- NOTE | 2024-10-28 13:55 | DVHNC2 ---
Procedure - Paracentesis Procedure Note INDICATION: Ascites PROCEDURE SPA ASSISTANT MANAGER: Dr Brandon Ultrasound used to fátima location: Y CONSENT: Consent was obtained from NOK prior to the procedure. Indications, risks, and benefits were explained at length. PROCEDURE SUMMARY: A time-out was performed. My hands were washed immediately prior to the proced ure. I wore a surgical cap, mask with protective eyewear, sterile gown and sterile gloves throughout the procedure. The area was cleansed and draped in usual sterile fashion using chlorhexidine scrub. Anesthesia was achieved with 1% lidocaine. The left lower quadrant of the abdomen was prepped and draped in a sterile fashion using chlorhexidine scrub. 1% lidocaine was used to numb the skin, soft tissue and peritoneum. The paracentesis catheter was inserted and advanced with negative pressure until yellow colored fluid was aspirated. The catheter was then connected to the vaccutainer and 2.1 liters of additional ascitic fluid were drained. The catheter was removed and no leaking was noted. A band aid was placed over the puncture wound. The patient tolerated the procedure well without any immediate complications. Estimated blood loss was less than 5 mL. EILEEN BRANDON MD Oct 28, 2024 13:55
--- NOTE | 2024-10-28 15:04 | DVHPN2 ---
Progress Note - Dictate Date Seen: Oct 28, 2024 Medical Necessity Reason Pt with a Central, PICC or Fol: Yes The following are medically ne: Central Line, Cartwright Catheter Reason for cartwright catheter: Strict I&O Subjective The patient is a 29-year-old male with a prior history of cirrhosis due to alcohol abuse, decompensations including ascites, esophageal varices, recent admission for paracentesis, returns with abdominal pain, altered mental status, elevated ammonia, hypotension suspected sepsis on IV pressors. Patient is seen in ICU intubated and sedated; Ascitic fluid showed 120 WBC 90 5% polymorphs, the count is less than 250 that is required for diagnosis of SBP but this may be because the patient has been treated with antibiotics No GI bleed reported; hemoglobin is at 8.3, liver enzymes persistently elevated ;kidney function are improving; repeat ammonia level is normal Patient underwent bedside paracentesis by Dr. Brandon and 2.1 L fluid was removed and sent for analysis vital signs Vital Sign Date Time Temp Pulse Resp B/P (MAP) Pulse Ox O2 Delivery O2 Flow Rate FiO2 10/28/24 14:37 118 19 108/69 (82) 100 30 10/28/24 13:52 Mechanical Ventilator+ 10/28/24 11:45 99.5 211.1 Total Intake and Output 10/27/24 10/27/24 10/28/24 15:00 23:00 07:00 Intake Total 73.5 ml 392.5 ml 659.5 ml Output Total 1175 ml 925 ml Balance 73.5 ml -782.5 ml -265.5 ml medications Current Medications Medications Dose Ordered Sig/Gretchen Route Start Time Stop Time Status Last Admin Dose Admin Midazolam HCl 50 ml @ 1 mls/hr Q24H IV 10/25/24 08:00 10/27/24 03:20 4 MLS/HR Acetaminophen 650 mg Q6HP PRN PO 10/25/24 08:15 Nitroglycerin 0.4 mg Q5MINP PRN SL 10/25/24 08:15 Morphine Sulfate 2 mg Q30M PRN IV 10/25/24 08:15 Multivitamins/ Minerals 1 tab DAILY PO 10/25/24 10:00 10/28/24 07:43 1 TAB Pantoprazole Sodium 40 mg DAILY IV 10/25/24 10:00 10/28/24 07:43 40 MG Propofol 100 ml @ 2.454 mls/ hr Q24H IV 10/25/24 09:45 10/26/24 05:04 24.54 MLS/HR Norepinephrine Bitartrate 250 ml @ 3.75 mls/hr Q24H IV 10/25/24 11:30 10/26/24 03:17 18.75 MLS/HR Lactulose 30 ml Q4HR PO 10/25/24 13:15 10/28/24 13:53 30 ML Rifaximin 550 mg BID PO 10/25/24 22:00 10/28/24 07:44 550 MG Fentanyl Citrate 250 ml @ 2.5 mls/hr Q24H IV 10/26/24 03:45 10/26/24 04:00 2.5 MLS/HR Cefepime HCl 50 ml @ 12.5 mls/hr Q8HR IV 10/26/24 14:00 10/28/24 13:53 12.5 MLS/HR Vancomycin HCl 0 ml @ 0 mls/hr UD IV 10/26/24 14:15 Enteral Nutritional Formula 1,000 ml 50ML/HR GT 10/27/24 13:30 Vancomycin HCl 250 ml @ 200 mls/hr Q12H IV 10/27/24 18:00 10/28/24 05:46 200 MLS/HR Dexmedetomidine HCl 400 mcg/ Dextrose 100 ml @ 3.76 mls/hr Q24H IV 10/27/24 15:00 Hold objective Examination: GENERAL:Normal, HEENT:Abnormal (jaundice), LUNGS:Normal, CVS:Normal, ABDOMEN:Abnormal (ascitis, umbilical hgernia, abdomen solf but disteneded, rectal tube and NG tube.) laboratory and microbiology Laboratory Tests 10/28/24 05:27 Test 10/28/24 05:27 Range/Units Serum Glucose 127 H 74-106 mg/dL Problems(with codes): (1) Intractable abdominal pain (2) Elevated liver enzymes (3) Gallstones (4) Splenomegaly (5) Pancytopenia (6) Anemia (7) Alcohol abuse (8) Liver cirrhosis (9) Hepatic encephalopathy (10) Hyperkalemia Prognosis Plan Continue IV antibiotics Patient is off sedation for two days Patient is being tapered off the Levophed Continue tube feedings Continue to monitor labs and once clinically stable try a CPAP trial Maddrey discrimination function is 29.6. Patient still does not need steroids If bilirubin continues to rise then we will try ursodiol and prednisone Supportive care; add thiamine and folic acid I will follow up patient with you Dietary Evaluation Review Recommendations by RD: PPN/TPN Comments: 1) If GI route is preferred, consider Nutrihelp @ 60 mL/hr goal rate as tolerated. Initiate free water flushes @ 200 mL Q6. TF regimen will provide 2160 kcals, 58g Pro, and 1938 mL fuid (including flushes) per 24 hrs. Goal rate will meet ~ 82% daily estimated energy needs and ~ 97% daily estaimted protein needs) 2) If patient remains NPO for more than 7 days, consider TPN to meet at least 75% of estimated needs 3) Advance to hepatic diet when medically feasible, pending [employer] SUPER[employer]OR approval 4) Continue to monitor I&O, labs, fluid retention, and skin integrity Expected Outcomes/Goals: 1) patient to receive nutrition within 7 days 2) labs to improve 3) diet to advance 4) f/u in 3 days Plan discussed with: Patient, Other ([facility] Nurse) KATELYN JOYCE MD Oct 28, 2024 15:04
[2024-10-28 16:02] LABS: Base Excess -2.7 mmol/L (-2.0-3.0)
[2024-10-28] MEDS: ACETAMINOPHEN 325 MG TAB PO PRN (20:48)
--- NOTE | 2024-10-28 21:30 | DVHPN2 ---
Progress Note - Dictate Date Seen: Oct 28, 2024 Medical Necessity Reason Pt with a Central, PICC or Fol: Yes The following are medically ne: Central Line, Cartwright Catheter Reason for cartwright catheter: Strict I&O Subjective Patient seen and examined at bedside. Sedated, intubated on mechanical ventilator. Overnight events reviewed. vital signs Vital Sign Date Time Temp Pulse Resp B/P (MAP) Pulse Ox O2 Delivery O2 Flow Rate FiO2 10/28/24 21:15 100.0 117 18 110/61 (77) 100 100.0 10/28/24 20:00 Mechanical Ventilator+ 30 30 Total Intake and Output 10/27/24 10/27/24 10/28/24 15:00 23:00 07:00 Intake Total 73.5 ml 392.5 ml 659.5 ml Output Total 1175 ml 925 ml Balance 73.5 ml -782.5 ml -265.5 ml medications Current Medications Medications Dose Ordered Sig/Gretchen Route Start Time Stop Time Status Last Admin Dose Admin Midazolam HCl 50 ml @ 1 mls/hr Q24H IV 10/25/24 08:00 10/27/24 03:20 4 MLS/HR Acetaminophen 650 mg Q6HP PRN PO 10/25/24 08:15 10/28/24 20:48 650 MG Nitroglycerin 0.4 mg Q5MINP PRN SL 10/25/24 08:15 Morphine Sulfate 2 mg Q30M PRN IV 10/25/24 08:15 Multivitamins/ Minerals 1 tab DAILY PO 10/25/24 10:00 10/28/24 07:43 1 TAB Pantoprazole Sodium 40 mg DAILY IV 10/25/24 10:00 10/28/24 07:43 40 MG Propofol 100 ml @ 2.454 mls/ hr Q24H IV 10/25/24 09:45 10/26/24 05:04 24.54 MLS/HR Norepinephrine Bitartrate 250 ml @ 3.75 mls/hr Q24H IV 10/25/24 11:30 10/26/24 03:17 18.75 MLS/HR Lactulose 30 ml Q4HR PO 10/25/24 13:15 10/28/24 16:35 30 ML Rifaximin 550 mg BID PO 10/25/24 22:00 10/28/24 07:44 550 MG Fentanyl Citrate 250 ml @ 2.5 mls/hr Q24H IV 10/26/24 03:45 10/26/24 04:00 2.5 MLS/HR Cefepime HCl 50 ml @ 12.5 mls/hr Q8HR IV 10/26/24 14:00 10/28/24 13:53 12.5 MLS/HR Vancomycin HCl 0 ml @ 0 mls/hr UD IV 10/26/24 14:15 Enteral Nutritional Formula 1,000 ml 50ML/HR GT 10/27/24 13:30 Vancomycin HCl 250 ml @ 200 mls/hr Q12H IV 10/27/24 18:00 10/28/24 16:35 200 MLS/HR Dexmedetomidine HCl 400 mcg/ Dextrose 100 ml @ 3.76 mls/hr Q24H IV 10/27/24 15:00 Hold Thiamine HCl 100 mg DAILY IV 10/29/24 10:00 Folic Acid 1 mg DAILY PO 10/29/24 10:00 objective Gen.: Patient lying in bed in medical ICU. Intubated on mechanical ventilator. Head: Normocephalic, atraumatic. Eyes: PERRLA. Ears: Normal external anatomy. Throat: Endotracheal tube and orogastric tube in place. Neck: Supple, trachea midline. Chest: Transmitted breath sounds bilaterally. Decreased air entry bilaterally. No wheezing. Bibasilar crackles. Cardiovascular: Positive S1, positive S2. Regular rate and rhythm. Abdomen: Positive bowel sounds in all 4 quadrants. Soft, nontender, nondistended. : Cartwright in place. Normal external genitalia. Rectal: Deferred. Skin: Warm, dry. Intact. Extremities: 2+ radial pulses bilaterally. No lower extremity edema. Neuro: Off sedation laboratory and microbiology Laboratory Tests 10/28/24 05:27 Test 10/28/24 05:27 Range/Units Serum Glucose 127 H 74-106 mg/dL Assessment/Plan Impression: Acute hypoxic respiratory failure On mechanical ventilator Intractable abdominal pain Lactic acidosis Transaminitis Pancytopenia History of liver cirrhosis Ascites Splenomegaly Cholelithiasis Events: Remains on vent support On AC mode; RR 18, VT 450, PEEP 5, FiO2 30% Off sedation Awaiting for mentation to improve Opens eyes, grimaces. Off Levophed Monitor hemodynamics S/p paracentesis today - 2.1 liters of ascitic fluid were drained. See separate procedure note for details. Continue antibiotics ABG reviewed, compensated. CXR shows no significant interval change. Labs and imaging reviewed. Rest of plan as noted below. Plan: s/p intubation on mechanical ventilator. CXR image and report reviewed. Devices in place. Multifocal airspace disease. Small left pleural effusion.. ABG reviewed, compensated. On AC mode; RR 18, VT 450, PEEP 5, FiO2 30% Titrate FIO2 to keep O2 saturation above 90%. VAP bundle. Daily ABG and CXR while intubated Off sedation Pressors if necessary for hemodynamic support Titrate to keep mean arterial pressure greater than 65 mmHg. Continue lactulose Continue antibiotics. F/u cultures. Monitor renal function Monitor electrolytes. Supplement as necessary. Monitor ins and outs. GI prophylaxis. DVT prophylaxis. Prognosis: Poor given patient's multiple co-morbidities. Condition: Critical Rest of plan per hospitalist and other consultants. A total of 35 minutes of critical care time was spent reviewing the patient record, examining the patient, making a diagnostic and therapeutic plan, discussing this plan with the medical personnel, following up on diagnostic studies and following the patient for clinical stability excluding any and all procedures. At least 50% of this time was spent in direct, [id number] contact. Thank you Dr. Nova, for allowing me to participate in this patient's care. Further recommendations will depend on the patient's clinical course. Please do not hesitate to contact me if you have any questions or concerns. This medical document was created using an electronic medical record system with Moven dictation system. Although these documentations are being carefully reviewed, there may still be some phonetic and typographical changes. The errors are purely typographical, due to imperfection on the software program, and do not reflect any compromise in the patient's medical care. Dietary Evaluation Review Recommendations by RD: PPN/TPN Comments: 1) If GI route is preferred, consider Nutrihelp @ 60 mL/hr goal rate as tolerated. Initiate free water flushes @ 200 mL Q6. TF regimen will provide 2160 kcals, 58g Pro, and 1938 mL fuid (including flushes) per 24 hrs. Goal rate will meet ~ 82% daily estimated energy needs and ~ 97% daily estaimted protein needs) 2) If patient remains NPO for more than 7 days, consider TPN to meet at least 75% of estimated needs 3) Advance to hepatic diet when medically feasible, pending [employer]OR [employer] INSURANCE approval 4) Continue to monitor I&O, labs, fluid retention, and skin integrity Expected Outcomes/Goals: 1) patient to receive nutrition within 7 days 2) labs to improve 3) diet to advance 4) f/u in 3 days Plan discussed with: Other ([facility] Silverio) Critical Care Time(min): 35 EILEEN LORENZO MD Oct 28, 2024 21:30
[2024-10-29] VITALS (106 sets, daily range): BP systolic 95–130; BP diastolic 32–87; PULSE 100–123; RESP 6–26; TEMP 97.2–99.3; O2SAT 100
--- NOTE | 2024-10-29 05:02 | DVH ---
CHEST RADIOGRAPH Indication: Intubated/ NG tube/ Central line Technique: Single frontal view of the chest was obtained Comparison: XY CHEST PORTABLE on DOS: 10/28/24 FINDINGS: Lines and Tubes: The endotracheal tube terminates 4.3 cm above the britta. Right central venous michael ter terminates in the superior vena cava. Lungs: Decreased pulmonary venous congestion. Minimal left basilar opacity. Pleura: No effusion. No pneumothorax. Cardiomediastinal contours: Unremarkable Bones: No acute osseous abnormality. IMPRESSION: 1. Decreased pulmonary venous congestion. Left basilar opacity which may reflect atelectasis. 2. Stable position of the support lines and tubes.
[2024-10-29] MEDS ORDERED: CEFEPIME 2GM/50ML NS 50 ML IV SCH (06:00)
[2024-10-29 06:20] LABS: Basophils # (auto) 0 10 ^3/uL (0-0.2); Eosinophils # (auto) 0.2 10 ^3/uL (0-0.8); Hemoglobin 8.1 g/dL (13.5-17.5); Lymphocytes # (auto) 0.6 10 ^3/uL (0.4-5.4); Monocytes # (auto) 0.8 10 ^3/uL (0-1.3); Nucleated Red Blood Cells % 0.1 %
[2024-10-29 06:22] LABS: Basophils % (auto) 0.3 % (0.0-2.0); Eosinophils % (auto) 2.6 % (0.0-7.0); Hematocrit 25.3 % (41.0-53.0); Lymphocytes % (auto) 9.8 % (10.0-50.0); Mean Corpuscular Volume 90.7 fL (80.0-100.0); Monocytes % (auto) 12.4 % (0.0-12.0); Neutrophils # (auto) 4.9 10 ^3/uL (1.6-8.6); Neutrophils % (auto) 74.9 % (37.0-80.0); Red Blood Cells 2.79 10^6/uL (4.5-5.90); Red Cell Distribution Width 32.2 % (11.8-14.3); White Blood Cell 6.6 10^3/uL (4.4-10.8)
[2024-10-29 06:31] LABS: Anion Gap 7 (5-15); Carbon Dioxide 20 mmol/L (20-31); Potassium 4.4 mmol/L (3.5-5.1); Sodium 143 mmol/L (136-145)
[2024-10-29 06:34] LABS: Calcium 7.7 mg/dL (8.7-10.4); Chloride 116 mmol/L (98-107)
[2024-10-29 06:37] LABS: BUN/Creatinine Ratio 37.3 (10.0-20.0)
[2024-10-29 06:39] LABS: Phosphorus 2.7 mg/dL (2.4-5.1)
[2024-10-29 06:46] LABS: Blood Urea Nitrogen 31 mg/dL (9-23); Glucose 111 mg/dL (74-106); Magnesium 3.1 mg/dL (1.6-2.6)
[2024-10-29 07:33] LABS: Platelet Count (auto) 59 10^3/uL (140-450)
--- NOTE | 2024-10-29 07:52 | DVHPNRES ---
Progress Note Date Seen: Oct 29, 2024 Resident Creating Document: SAMMY HAY RESIDENT Has the PT tested + for MRSA If YES, has PT been informed?: No Medical Necessity Reason Pt with a Central, PICC or Fol: Yes The following are medically ne: Central Line, Cartwright Catheter Reason for cartwright catheter: Strict I&O Objective vital signs Vital Sign Date Time Temp Pulse Resp B/P (MAP) Pulse Ox O2 Delivery O2 Flow Rate FiO2 10/29/24 07:30 98.1 111 17 119/74 (89) 100 208.6 10/29/24 06:00 30 10/29/24 06:00 Mechanical Ventilator+ Total Intake and Output 10/28/24 10/28/24 10/29/24 15:00 23:00 07:00 Intake Total 50.0 ml 564.0 ml 852.5 ml Output Total 2650 ml 1850 ml Balance 50.0 ml -2086.0 ml -997.5 ml medications Current Medications Medications Dose Ordered Sig/Gretchen Route Start Time Stop Time Status Last Admin Dose Admin Midazolam HCl 50 ml @ 1 mls/hr Q24H IV 10/25/24 08:00 10/27/24 03:20 4 MLS/HR Acetaminophen 650 mg Q6HP PRN PO 10/25/24 08:15 10/28/24 20:48 650 MG Nitroglycerin 0.4 mg Q5MINP PRN SL 10/25/24 08:15 Morphine Sulfate 2 mg Q30M PRN IV 10/25/24 08:15 Multivitamins/ Minerals 1 tab DAILY PO 10/25/24 10:00 10/28/24 07:43 1 TAB Pantoprazole Sodium 40 mg DAILY IV 10/25/24 10:00 10/28/24 07:43 40 MG Propofol 100 ml @ 2.454 mls/ hr Q24H IV 10/25/24 09:45 10/26/24 05:04 24.54 MLS/HR Norepinephrine Bitartrate 250 ml @ 3.75 mls/hr Q24H IV 10/25/24 11:30 10/26/24 03:17 18.75 MLS/HR Lactulose 30 ml Q4HR PO 10/25/24 13:15 10/29/24 05:50 30 ML Rifaximin 550 mg BID PO 10/25/24 22:00 10/28/24 22:02 550 MG Fentanyl Citrate 250 ml @ 2.5 mls/hr Q24H IV 10/26/24 03:45 10/26/24 04:00 2.5 MLS/HR Vancomycin HCl 0 ml @ 0 mls/hr UD IV 10/26/24 14:15 Enteral Nutritional Formula 1,000 ml 50ML/HR GT 10/27/24 13:30 Vancomycin HCl 250 ml @ 200 mls/hr Q12H IV 10/27/24 18:00 10/29/24 07:40 200 MLS/HR Dexmedetomidine HCl 400 mcg/ Dextrose 100 ml @ 3.76 mls/hr Q24H IV 10/27/24 15:00 Hold Thiamine HCl 100 mg DAILY IV 10/29/24 10:00 Folic Acid 1 mg DAILY PO 10/29/24 10:00 Cefepime HCl 50 ml @ 12.5 mls/hr Q8H IV 10/29/24 09:00 Examination The patient remains sedated and ventilated. Hemodynamically stable. GENERAL:Abnormal (Remains off of sedation and ventilated in minimal settings), HEENT:Normal (ET tube in place), NECK:Normal (Central line in place), LUNGS:Normal (Bilateral equal air entry, thinking with the ventilation, basal rales bilateral), CVS:Normal, ABDOMEN:Abnormal (Fluid thrill present, bilateral flank full, shifting dullness, inverted ambulate cause with the umbilical hernia, much improved than last week), MSK:Normal, SKIN:Abnormal (We will visible icterus), NEURO:Abnormal (Sedated and ventilated), :Normal (On Cartwright's catheter) laboratory and microbiology Laboratory Tests 10/29/24 05:50 Test 10/29/24 05:50 Range/Units Serum Glucose 111 H 74-106 mg/dL Microbiology Date/Time Source Procedure Growth Status 10/26/24 17:50 Ascities Fluid Gram Stain - Final Resulted 10/26/24 17:50 Ascities Fluid Body Fluid Culture - Preliminary Resulted 10/26/24 09:20 Nose MRSA Screen - Final Complete 10/25/24 09:20 Voided Urine Urine Culture - Final Complete 10/25/24 08:18 Sputum Gram Stain - Final Complete 10/25/24 08:18 Sputum Respiratory Culture - Final Complete 10/25/24 07:15 Blood Blood Culture - Final Escherichia coli#2 Micrococcus species Complete Labs and/or images reviewed: Labs reviewed by me, Image(s) reviewed by me Problem List/Assessment/Plan Problem List/Assessment/Plan ICU Course: 29-year-old gentleman with past medical history significant for hypertension, chronic alcoholism, malnutrition, liver cirrhosis with decompensated liver failure previously presented to the ED with abdominal pain, was found to have septic shock, toxic/metabolic encephalopathy and was unable to protect airways and was intubated and sedated and was upgraded to the ICU/ANNIE use status, limited history but as per family patient was still drinking at least 3 weeks prior to this incident. Patient remains intubated and sedated. Hospitalization day: 8 A. Neurolgy: # sedation for mechanical ventilation synchronization: Fentanyl and Versed, titratable. RASS -2-3 off since TuesdayOctober 27. # toxic/metabolic hepatic encephalopathy: Presented with altered level of consciousness likely due to the above, multifactorial possibly due to hyperammonemia, sepsis, bacteremia, infection, electrolyte disturbances. # chronic alcohol abuse: Despite having progressed to liver cirrhosis in her early 30s patient continues to drink, needs further evaluation and supportive care and 12 step alcohol rehabilitation program to be recommended at recovery of the acute stage. # hyperammonemia: Presented in 200s, status post verify mixed seen and lactulose with target of bowel movement 2-3 times at least a day, on rectal tube, target achieved, repeat ammonia 82> now 20s, b.i.d. lactulose, with rifaximin 550 b.i.d. with target bowel movement of 2-3 times per day. B. Cardiology: # hypotension: Likely due to underlying septic shock, on Levophed titratable, around 4, we will titrate as tolerated, with target map over 65. Although this might be modified as underlying liver cirrhosis could be playing a role in maintaining blood pressure. Off of Levophed. # history of hypertension: Known hypertensive, held all antihypertensives, target blood pressure for this gentleman will be 140/90 or below as per aha/ACC guidelines. C. Respiratory: # acute respiratory failure: Continue mechanical ventilation with ETT in place, daily chest x-ray, repositioning, respiratory therapy input appreciated, AC/VC/VT 450, peep of 5, FiO2 of 30%, minimal when sitting saturating well of SpO2 near 100%. ABG satisfactory after CPAP trial today 7.4/29.6/104/base excess of-4.4. But AAO x1, arousable likely due to slow excretion of the sedatives. Tomorrow CPAP trial in the morning. #possible aspiration pneumonia: Under level of consciousness might be contributory to respiratory failure, we will treat as aspiration pneumonia, respiratory culture pending, broad-spectrum antibiotic to continue. D. Gastrointestinal: # liver cirrhosis due to alcohol abuse: Not a great candidate for liver transplant but needs further follow up with GI and hepatology, lifestyle modification and risk reduction prior to further life-saving clinical discussion. Maddrey score 29.6-23.2, does not need any IV steroid, CMP trending to be done. # portal hypertension: Likely due to cirrhosis. Started the patient on Aldactone 50 but can not crush in the NG tube. We will hold for now. # ascites: 1.4 L approximately fluid aspirated+ 2.1 L = 3.5 L both for therapeutic and diagnostic purpose, to rule out spontaneous bacterial peritonitis, sample, culture, lab under work. Might need further paracentesis in this hospitalization. # umbilical hernia: Stable, on incarcerated, previously known. No intervention needed at this point. #NG tube in place, nutrition to continue with tube feeding as tolerated, residual to check every 12 hours. If needed add Reglan 5 t.i.d. tomorrow. # cholelithiasis without cholecystitis # hyperbilirubinemia 5.5, carolann icterus., improved to 4.5. CMP follow up # transaminitis: Typical 2 to 1 pattern of alcoholics, follow up INR/PT/PTT, on daily CMP. # acute cholecystitis not excluded: Both U/S and abdominal CT could not get any at possibly be of cholecystitis, moves further clinical evaluation and once patient is more stable might consider HIDA scan. We will continue broad- spectrum antibiotics as of now. E. Genitourinary: # on Cartwright's catheter, close input output to check. F. Infectious Disease: # Gram-negative bacteremia: E coli, pansensitive septic shock and ascites related complications, mycoplasma anaerobic > IV cefepime and vancomycin change to ceftriaxone and metronidazole to cover for SBP and Gram-negative bacteremia, repeat blood culture, G. Hematology & Oncology: # pancytopenia secondary to liver cirrhosis and possible hepatosplenomegaly # thrombocytopenia: Close follow up, 52 versus 92, trending down # anemia: Transfusion threshold 7, H&H stable. H. Nephrology: # hyponatremia: Corrected for hypoalbuminemia, likely due to cirrhosis, close follow up of CMP daily. Treat underlying cause. Avoid over-correction. # ANDRÉS likely due to vasomotor nephropathy: Multifactorial due to underlying sepsis, possible hepatorenal, on prerenal contributory. Close monitoring of input output, avoid nephrotoxics, close input output to check for urine output/anuria. I. Endocrine: # overweight with BMI of 26.8 # moderate protein energy malnutrition likely due to underlying alcoholism and poor oral intake, dietitian consult when appropriate. J. MSK: # poor muscle mass, likely wound benefitted from physical therapy after acute care. . K. Prophylaxis: PPI: IV PPI DVT: Avoid heparin ambulated products, due to thrombocytopenia. SCDs L. Lines & Drains (with insertion date): IV 10/25 Central 10/25 Arterial line not needed M. Drips: Fentanyl, Versed, Levophed N. Disposition: Remains in [facility] The plan was discussed with the ICU attending Dr. Montano. The patient care consists of total 81 minutes of critical care time excluding the procedures. Dictated by Sammy Hay MD with 3M MModal Fluency. Plan discussed with: Patient, Other My Orders My Orders Orders - SAMMY HAY RESIDENT Procedure Category Date Status Time Cefepime 2gm/50ml Ns PHA 10/29/24 In Process (Maxipime 2gm/50ml) 09:00 Ammonia LAB 10/29/24 Logged 07:20 Ammonia LAB 10/29/24 Verified 07:51 Dietary Evaluation Review Recommendations by RD: PPN/TPN Comments: 1) If GI route is preferred, consider Nutrihelp @ 60 mL/hr goal rate as tolerated. Initiate free water flushes @ 200 mL Q6. TF regimen will provide 2160 kcals, 58g Pro, and 1938 mL fuid (including flushes) per 24 hrs. Goal rate will meet ~ 82% daily estimated energy needs and ~ 97% daily estaimted protein needs) 2) If patient remains NPO for more than 7 days, consider TPN to meet at least 75% of estimated needs 3) Advance to hepatic diet when medically feasible, pending OCEANOLOGY TEACHER approval 4) Continue to monitor I&O, labs, fluid retention, and skin integrity Expected Outcomes/Goals: 1) patient to receive nutrition within 7 days 2) labs to improve 3) diet to advance 4) f/u in 3 days Labs/Diagnostic Data Laboratory Tests Test 10/29/24 05:50 Range/Units White Blood Count 6.6 4.4-10.8 10^3/uL Red Blood Count 2.79 L 4.5-5.90 10^6/uL Hemoglobin 8.1 L 13.5-17.5 g/dL Hematocrit 25.3 L 41.0-53.0 % Mean Corpuscular Volume 90.7 80.0-100.0 fL Mean Corpuscular Hemoglobin 29.0 28.0-32.0 pg Mean Corpuscular Hemoglobin Concent 32.0 32.0-36.0 g/dL Red Cell Distribution Width 32.2 H 11.8-14.3 % Platelet Count 59 L 140-450 10^3/uL Mean Platelet Volume 8.5 6.9-10.8 fL Neutrophils (%) (Auto) 74.9 37.0-80.0 % Lymphocytes (%) (Auto) 9.8 L 10.0-50.0 % Monocytes (%) (Auto) 12.4 H 0.0-12.0 % Eosinophils (%) (Auto) 2.6 0.0-7.0 % Basophils (%) (Auto) 0.3 0.0-2.0 % Neutrophils # (Auto) 4.9 1.6-8.6 10 ^3/uL Lymphocytes # (Auto) 0.6 0.4-5.4 10 ^3/uL Monocytes # (Auto) 0.8 0-1.3 10 ^3/uL Eosinophils # (Auto) 0.2 0-0.8 10 ^3/uL Basophils # (Auto) 0 0-0.2 10 ^3/uL Nucleated Red Blood Cells 0.1 % Sodium Level 143 136-145 mmol/L Potassium Level 4.4 3.5-5.1 mmol/L Chloride Level 116 H 98-107 mmol/L Carbon Dioxide Level 20 20-31 mmol/L Anion Gap 7 5-15 Blood Urea Nitrogen 31 H 9-23 mg/dL Creatinine 0.83 0.700-1.30 mg/dL Glomerular Filtration Rate Calc 120 >90 mL/min BUN/Creatinine Ratio 37.3 H 10.0-20.0 Serum Glucose 111 H 74-106 mg/dL Calcium Level 7.7 L 8.7-10.4 mg/dL Phosphorus Level 2.7 2.4-5.1 mg/dL Magnesium Level 3.1 H 1.6-2.6 mg/dL Vancomycin Level Trough 9.2 5-10 ug/mL Microbiology Date/Time Source Procedure Growth Status 10/26/24 17:50 Ascities Fluid Gram Stain - Final Resulted 10/26/24 17:50 Ascities Fluid Body Fluid Culture - Preliminary Resulted 10/26/24 09:20 Nose MRSA Screen - Final Complete 10/25/24 09:20 Voided Urine Urine Culture - Final Complete 10/25/24 08:18 Sputum Gram Stain - Final Complete 10/25/24 08:18 Sputum Respiratory Culture - Final Complete 10/25/24 07:15 Blood Blood Culture - Final Escherichia coli#2 Micrococcus species Complete vital signs Vital Sign Date Time Temp Pulse Resp B/P (MAP) Pulse Ox O2 Delivery O2 Flow Rate FiO2 10/29/24 07:30 98.1 111 17 119/74 (89) 100 208.6 10/29/24 06:00 30 10/29/24 06:00 Mechanical Ventilator+ Total Intake and Output 10/28/24 10/28/24 10/29/24 15:00 23:00 07:00 Intake Total 50.0 ml 564.0 ml 852.5 ml Output Total 2650 ml 1850 ml Balance 50.0 ml -2086.0 ml -997.5 ml medications Current Medications Medications Dose Ordered Sig/Gretchen Route Start Time Stop Time Status Last Admin Dose Admin Midazolam HCl 50 ml @ 1 mls/hr Q24H IV 10/25/24 08:00 10/27/24 03:20 4 MLS/HR Acetaminophen 650 mg Q6HP PRN PO 10/25/24 08:15 10/28/24 20:48 650 MG Nitroglycerin 0.4 mg Q5MINP PRN SL 10/25/24 08:15 Morphine Sulfate 2 mg Q30M PRN IV 10/25/24 08:15 Multivitamins/ Minerals 1 tab DAILY PO 10/25/24 10:00 10/28/24 07:43 1 TAB Pantoprazole Sodium 40 mg DAILY IV 10/25/24 10:00 10/28/24 07:43 40 MG Propofol 100 ml @ 2.454 mls/ hr Q24H IV 10/25/24 09:45 10/26/24 05:04 24.54 MLS/HR Norepinephrine Bitartrate 250 ml @ 3.75 mls/hr Q24H IV 10/25/24 11:30 10/26/24 03:17 18.75 MLS/HR Lactulose 30 ml Q4HR PO 10/25/24 13:15 10/29/24 05:50 30 ML Rifaximin 550 mg BID PO 10/25/24 22:00 10/28/24 22:02 550 MG Fentanyl Citrate 250 ml @ 2.5 mls/hr Q24H IV 10/26/24 03:45 10/26/24 04:00 2.5 MLS/HR Vancomycin HCl 0 ml @ 0 mls/hr UD IV 10/26/24 14:15 Enteral Nutritional Formula 1,000 ml 50ML/HR GT 10/27/24 13:30 Vancomycin HCl 250 ml @ 200 mls/hr Q12H IV 10/27/24 18:00 10/29/24 07:40 200 MLS/HR Dexmedetomidine HCl 400 mcg/ Dextrose 100 ml @ 3.76 mls/hr Q24H IV 10/27/24 15:00 Hold Thiamine HCl 100 mg DAILY IV 10/29/24 10:00 Folic Acid 1 mg DAILY PO 10/29/24 10:00 Cefepime HCl 50 ml @ 12.5 mls/hr Q8H IV 10/29/24 09:00 laboratory and microbiology Laboratory Tests 10/29/24 05:50 Test 10/29/24 05:50 Range/Units Serum Glucose 111 H 74-106 mg/dL Date of Service: Oct 29, 2024 Billing Provider: DHEERAJ MONTANO MD Common Visit Codes: 59292-UKVSACZZ CARE 30-74 MIN, 84160-DRXYLOJV CARE-EACH +30MIN SAMMY HAY RESIDENT Oct 29, 2024 07:52 DHEERAJ MONTANO MD Oct 30, 2024 14:37
[2024-10-29] MEDS: CEFEPIME 2GM/50ML NS 50 ML IV SCH (09:10)
[2024-10-29 09:35] LABS: Base Excess -4.4 mmol/L (-2.0-3.0)
[2024-10-29] MEDS: THIAMINE 100mg/ml INJ (200mg/2ml VIAL) IV SCH (10:21)
[2024-10-29] MEDS: FOLIC ACID 1 MG TAB PO SCH (10:21)
--- NOTE | 2024-10-29 14:49 | DVHPN2 ---
Progress Note Date Seen: Oct 29, 2024 Resident Creating Document: YOAN SELLERS RESIDENT Has the PT tested + for MRSA If YES, has PT been informed?: No Medical Necessity Reason Pt with a Central, PICC or Fol: Yes The following are medically ne: Central Line, Cartwright Catheter Reason for cartwright catheter: Strict I&O Subjective Review of Systems Patient seen and examined at bedside Intubated Sedated No active GI bleed Stable hemoglobin Ammonia level 20 Reduced frequency of lactulose Presence of rectal tube Trending down bilirubin Objective vital signs Vital Sign Date Time Temp Pulse Resp B/P (MAP) Pulse Ox O2 Delivery O2 Flow Rate FiO2 10/29/24 13:15 120 15 111/68 (82) 100 10/29/24 12:15 98.2 208.8 10/29/24 12:00 30 10/29/24 12:00 Mechanical Ventilator+ Total Intake and Output 10/28/24 10/28/24 10/29/24 15:00 23:00 07:00 Intake Total 50.0 ml 564.0 ml 852.5 ml Output Total 2650 ml 1850 ml Balance 50.0 ml -2086.0 ml -997.5 ml medications Current Medications Medications Dose Ordered Sig/Gretchen Route Start Time Stop Time Status Last Admin Dose Admin Midazolam HCl 50 ml @ 1 mls/hr Q24H IV 10/25/24 08:00 10/27/24 03:20 4 MLS/HR Acetaminophen 650 mg Q6HP PRN PO 10/25/24 08:15 10/28/24 20:48 650 MG Nitroglycerin 0.4 mg Q5MINP PRN SL 10/25/24 08:15 Morphine Sulfate 2 mg Q30M PRN IV 10/25/24 08:15 Multivitamins/ Minerals 1 tab DAILY PO 10/25/24 10:00 10/28/24 07:43 1 TAB Pantoprazole Sodium 40 mg DAILY IV 10/25/24 10:00 10/29/24 10:21 40 MG Propofol 100 ml @ 2.454 mls/ hr Q24H IV 10/25/24 09:45 10/26/24 05:04 24.54 MLS/HR Norepinephrine Bitartrate 250 ml @ 3.75 mls/hr Q24H IV 10/25/24 11:30 10/26/24 03:17 18.75 MLS/HR Rifaximin 550 mg BID PO 10/25/24 22:00 10/29/24 10:21 550 MG Fentanyl Citrate 250 ml @ 2.5 mls/hr Q24H IV 10/26/24 03:45 10/26/24 04:00 2.5 MLS/HR Vancomycin HCl 0 ml @ 0 mls/hr UD IV 10/26/24 14:15 Enteral Nutritional Formula 1,000 ml 50ML/HR GT 10/27/24 13:30 Dexmedetomidine HCl 400 mcg/ Dextrose 100 ml @ 3.76 mls/hr Q24H IV 10/27/24 15:00 Hold Thiamine HCl 100 mg DAILY IV 10/29/24 10:00 10/29/24 10:21 100 MG Folic Acid 1 mg DAILY PO 10/29/24 10:00 10/29/24 10:21 1 MG Cefepime HCl 50 ml @ 12.5 mls/hr Q8H IV 10/29/24 09:00 10/29/24 09:10 12.5 MLS/HR Lactulose 30 ml BID PO 10/29/24 22:00 Vancomycin HCl 250 ml @ 200 mls/hr Q10H IV 10/29/24 16:00 Examination GENERAL:Normal, HEENT:Abnormal (jaundice), LUNGS:Normal, CVS:Normal, ABDOMEN:Abnormal (ascitis, umbilical hgernia, abdomen solf but disteneded, rectal tube and NG tube.) laboratory and microbiology Laboratory Tests 10/29/24 05:50 Test 10/29/24 05:50 Range/Units Serum Glucose 111 H 74-106 mg/dL Microbiology Date/Time Source Procedure Growth Status 10/26/24 17:50 Ascities Fluid Gram Stain - Final Resulted 10/26/24 17:50 Ascities Fluid Body Fluid Culture - Preliminary Resulted 10/26/24 09:20 Nose MRSA Screen - Final Complete 10/25/24 09:20 Voided Urine Urine Culture - Final Complete 10/25/24 08:18 Sputum Gram Stain - Final Complete 10/25/24 08:18 Sputum Respiratory Culture - Final Complete 10/25/24 07:15 Blood Blood Culture - Final Escherichia coli#2 Micrococcus species Complete Problem List/Assessment/Plan Problem List/Assessment/Plan Septic shock ?peritonitis Livre cirrhosis due to alcohol abuse metabolic encephalopathy hyperammonemia portal hypertension ANDRÉS due to hemodynamically mediated umbilical hernia anemia thrombocytopenia Plan/Recommendation Dr Gray Patient still does not meet criteria for steroids. Kadenloreta discrimination function is still less than 32. -continue lactulose 30 ml Q2 via rectal tube and rifaximin via GT tube, monitor ammonia level. Ammonia level 20. -continue current management, No active GI bleed, No active GI intervention needed at this point, will consider EGD when he is medically stable -continue monitor liver function -continue protonix 40 mg daily -Continue IV pressor therapy -IV Antibiotics -continue tube feeding -Follow labs and replace electrolytes Plan discussed with: Other (RN) Dietary Evaluation Review Recommendations by RD: PPN/TPN Comments: 1) If GI route is preferred, consider Nutrihelp @ 60 mL/hr goal rate as tolerated. Initiate free water flushes @ 200 mL Q6. TF regimen will provide 2160 kcals, 58g Pro, and 1938 mL fuid (including flushes) per 24 hrs. Goal rate will meet ~ 82% daily estimated energy needs and ~ 97% daily estaimted protein needs) 2) If patient remains NPO for more than 7 days, consider TPN to meet at least 75% of estimated needs 3) Advance to hepatic diet when medically feasible, pending MEDICAL LAB SPECIALIST approval 4) Continue to monitor I&O, labs, fluid retention, and skin integrity Expected Outcomes/Goals: 1) patient to receive nutrition within 7 days 2) labs to improve 3) diet to advance 4) f/u in 3 days YOAN SELLERS RESIDENT Oct 29, 2024 14:49
[2024-10-29 16:13] LABS: INR 1.55 (0.9-1.15); Prothrombin Time 15.7 sec (9.3-11.8)
[2024-10-29 16:19] LABS: Alanine Aminotransferase 65 U/L (7-40); Albumin 1.9 g/dL (3.2-4.8); Alkaline Phosphatase 234 U/L (46-116); Anion Gap 5 (5-15); Aspartate Aminotransferase 147 U/L (13-40); Blood Urea Nitrogen 32 mg/dL (9-23); Calcium 7.4 mg/dL (8.7-10.4); Carbon Dioxide 21 mmol/L (20-31); Chloride 117 mmol/L (98-107); Glucose 134 mg/dL (74-106); Potassium 4.1 mmol/L (3.5-5.1); Sodium 143 mmol/L (136-145); Total Protein 5.8 g/dL (5.7-8.2)
[2024-10-29] MEDS: VANCOMYCIN 1GM/250ML KIT 250 ML IV SCH (16:19)
[2024-10-29 16:20] LABS: Bilirubin, Total 5.1 mg/dL (0.2-1.0)
[2024-10-29] MEDS: SPIRONOLACTONE 25 MG TAB PO ONE (17:00)
[2024-10-29] MEDS: metroNIDAZOLE 500MG/100ML 100 ML IV SCH (21:29)
[2024-10-29] MEDS: LACTULOSE 20Gm/30ML SOLN PO SCH (21:29)
[2024-10-30] VITALS (108 sets, daily range): BP systolic 81–130; BP diastolic 49–90; PULSE 90–121; RESP 11–25; TEMP 98.1–98.7; O2SAT 97–100
--- NOTE | 2024-10-30 05:07 | DVH ---
EXAM: XR Chest, 1 View CLINICAL INDICATION: F/U ETT TECHNIQUE: Frontal view of the chest. COMPARISON: XY CHEST PORTABLE on DOS: 10/29/24, XY CHEST PORTABLE on DOS: 10/28/24, XY CHEST PORTABLE o n DOS: 10/27/24, XY CHEST PORTABLE on DOS: 10/26/24, XY CHEST PORTABLE on DOS: 10/25/24 FINDINGS: LUNGS AND PLEURAL SPACES: Pulmonary venous congestion. No consolidation. No pneumothorax. HEART: Unremarkable. No cardiomegaly. MEDIASTINUM: Unremarkable. Normal mediastinal contour. BONES/JOINTS: Unremarkable. No acute fracture. TUBES, LINES AND DEVICES: The endotracheal tube (ETT) is in satisfactory position. Right internal jugular central venous catheter tip in the superior vena cava. OTHER FINDINGS: . IMPRESSION: Pulmonary venous congestion.
[2024-10-30 05:18] LABS: Basophils # (auto) 0 10 ^3/uL (0-0.2); Basophils % (auto) 0.3 % (0.0-2.0); Eosinophils # (auto) 0.4 10 ^3/uL (0-0.8); Hemoglobin 7.7 g/dL (13.5-17.5); Lymphocytes # (auto) 0.6 10 ^3/uL (0.4-5.4); Mean Corpuscular Hgb Conc. 32.6 g/dL (32.0-36.0); Neutrophils # (auto) 4.1 10 ^3/uL (1.6-8.6); Nucleated Red Blood Cells % 0.1 %; Red Blood Cells 2.57 10^6/uL (4.5-5.90)
[2024-10-30 05:21] LABS: Eosinophils % (auto) 6.7 % (0.0-7.0); Hematocrit 23.6 % (41.0-53.0); Lymphocytes % (auto) 10.7 % (10.0-50.0); Mean Corpuscular Hemoglobin 29.9 pg (28.0-32.0); Mean Corpuscular Volume 91.7 fL (80.0-100.0); Monocytes # (auto) 0.6 10 ^3/uL (0-1.3); Neutrophils % (auto) 72.3 % (37.0-80.0); Platelet Count (auto) 47 10^3/uL (140-450); Red Cell Distribution Width 30.4 % (11.8-14.3); White Blood Cell 5.7 10^3/uL (4.4-10.8)
[2024-10-30 05:41] LABS: Anion Gap 5 (5-15); BUN/Creatinine Ratio 39.7 (10.0-20.0); Carbon Dioxide 21 mmol/L (20-31); Glucose 102 mg/dL (74-106); Potassium 4.4 mmol/L (3.5-5.1); Sodium 144 mmol/L (136-145)
[2024-10-30 05:49] LABS: Alanine Aminotransferase 67 U/L (7-40); Alkaline Phosphatase 225 U/L (46-116); Aspartate Aminotransferase 150 U/L (13-40); Bilirubin, Total 5.2 mg/dL (0.2-1.0); Blood Urea Nitrogen 29 mg/dL (9-23); Chloride 118 mmol/L (98-107)
--- NOTE | 2024-10-30 08:31 | DVHPNRES ---
Progress Note Date Seen: Oct 30, 2024 Resident Creating Document: SAMMY HAY RESIDENT Has the PT tested + for MRSA If YES, has PT been informed?: No Medical Necessity Reason Pt with a Central, PICC or Fol: Yes The following are medically ne: Central Line, Cartwright Catheter Reason for cartwright catheter: Strict I&O Subjective Review of Systems -Overnight patient is afebrile, sinus tachycardia in 09/07, hemodynamically stable off of pressors,The patient remains off of sedation and minimally ventilated. -Lab brooke H&H stable, slow down trending 7.7 versus 8.1 platelet 10s to go down 92, 59, 47, ascitic fluid analysis still pending, no new growth from the cultures. -CXR unremarkable, cpap trial Objective vital signs Vital Sign Date Time Temp Pulse Resp B/P (MAP) Pulse Ox O2 Delivery O2 Flow Rate FiO2 10/30/24 07:36 112 18 112/69 (83) 100 30 10/30/24 06:00 Mechanical Ventilator+ 10/30/24 04:00 98.1 98.1 Total Intake and Output 10/29/24 10/29/24 10/30/24 15:00 23:00 07:00 Intake Total 300 ml 774 ml 386 ml Output Total 650 ml 685 ml Balance 300 ml 124 ml -299 ml medications Current Medications Medications Dose Ordered Sig/Gretchen Route Start Time Stop Time Status Last Admin Dose Admin Acetaminophen 650 mg Q6HP PRN PO 10/25/24 08:15 10/28/24 20:48 650 MG Nitroglycerin 0.4 mg Q5MINP PRN SL 10/25/24 08:15 Morphine Sulfate 2 mg Q30M PRN IV 10/25/24 08:15 Multivitamins/ Minerals 1 tab DAILY PO 10/25/24 10:00 10/28/24 07:43 1 TAB Pantoprazole Sodium 40 mg DAILY IV 10/25/24 10:00 10/29/24 10:21 40 MG Propofol 100 ml @ 2.454 mls/ hr Q24H IV 10/25/24 09:45 10/26/24 05:04 24.54 MLS/HR Norepinephrine Bitartrate 250 ml @ 3.75 mls/hr Q24H IV 10/25/24 11:30 10/26/24 03:17 18.75 MLS/HR Rifaximin 550 mg BID PO 10/25/24 22:00 10/29/24 21:29 550 MG Fentanyl Citrate 250 ml @ 2.5 mls/hr Q24H IV 10/26/24 03:45 10/26/24 04:00 2.5 MLS/HR Enteral Nutritional Formula 1,000 ml 50ML/HR GT 10/27/24 13:30 Dexmedetomidine HCl 400 mcg/ Dextrose 100 ml @ 3.76 mls/hr Q24H IV 10/27/24 15:00 Hold Thiamine HCl 100 mg DAILY IV 10/29/24 10:00 10/29/24 10:21 100 MG Folic Acid 1 mg DAILY PO 10/29/24 10:00 10/29/24 10:21 1 MG Lactulose 30 ml BID PO 10/29/24 22:00 10/29/24 21:29 30 ML Ceftriaxone Sodium 50 ml @ 100 mls/hr DAILY@09 IV 10/30/24 09:00 Metronidazole 100 ml @ 100 mls/hr Q8HR IV 10/29/24 22:00 10/30/24 05:29 100 MLS/HR Spironolactone 50 mg DAILY PO 10/30/24 10:00 Examination GENERAL:Abnormal (Remains off of sedation and ventilated in minimal settings), HEENT:Normal (ET tube in place), NECK:Normal (Central line in place), LUNGS:Normal (Bilateral equal air entry, thinking with the ventilation, basal rales bilateral), CVS:Normal, ABDOMEN:Abnormal (Fluid thrill present, bilateral flank full, shifting dullness, inverted ambulate cause with the umbilical hernia, much improved than last week), MSK:Normal, SKIN:Abnormal (visible icterus), NEURO:Abnormal (Sedated and ventilated), :Normal (On Cartwright's catheter) laboratory and microbiology Laboratory Tests 10/30/24 04:40 Test 10/30/24 04:40 Range/Units Serum Glucose 102 74-106 mg/dL Microbiology Date/Time Source Procedure Growth Status 10/26/24 17:50 Ascities Fluid Gram Stain - Final Resulted 10/26/24 17:50 Ascities Fluid Body Fluid Culture - Preliminary Resulted 10/26/24 09:20 Nose MRSA Screen - Final Complete 10/25/24 09:20 Voided Urine Urine Culture - Final Complete 10/25/24 08:18 Sputum Gram Stain - Final Complete 10/25/24 08:18 Sputum Respiratory Culture - Final Complete 10/25/24 07:15 Blood Blood Culture - Final Escherichia coli#2 Micrococcus species Complete Labs and/or images reviewed: Labs reviewed by me, Image(s) reviewed by me Problem List/Assessment/Plan Problem List/Assessment/Plan ICU Course: 29-year-old gentleman with past medical history significant for hypertension, chronic alcoholism, malnutrition, liver cirrhosis with decompensated liver failure previously presented to the ED with abdominal pain, was found to have septic shock, toxic/metabolic encephalopathy and was unable to protect airways and was intubated and sedated and was upgraded to the ICU/[facility] use status, limited history but as per family patient was still drinking at least 3 weeks prior to this incident. Patient remains intubated and off of sedation but sleepy. Hospitalization day: 9 A. Neurology: # sedation for mechanical ventilation synchronization: Fentanyl and Versed, titratable. RASS -2-3 off since TuesdayOctober 27. # toxic/metabolic hepatic encephalopathy: Presented with altered level of consciousness likely due to the above, multifactorial possibly due to hyperammonemia, sepsis, bacteremia, infection, electrolyte disturbances. # chronic alcohol abuse: Despite having progressed to liver cirrhosis in her early 30s patient continues to drink, needs further evaluation and supportive care and 12 step alcohol rehabilitation program to be recommended at recovery of the acute stage. # hyperammonemia: Presented in 200s, status post verify mixed seen and lactulose with target of bowel movement 2-3 times at least a day, on rectal tube, target achieved, repeat ammonia 82> now 20s, b.i.d. lactulose, with rifaximin 550 b.i.d. with target bowel movement of 2-3 times per day. no need to follow ammonia. B. Cardiology: # hypotension: Likely due to underlying septic shock, on Levophed titratable, around 4, we will titrate as tolerated, with target map over 65. Although this might be modified as underlying liver cirrhosis could be playing a role in maintaining blood pressure. Off of Levophed. # history of hypertension: Known hypertensive, held all antihypertensives, target blood pressure for this gentleman will be 140/90 or below as per aha/ACC guidelines. C. Respiratory: # acute respiratory failure: Continue mechanical ventilation with ETT in place, daily chest x-ray, repositioning, respiratory therapy input appreciated, AC/VC/VT 450, peep of 5, FiO2 of 30%, minimal when sitting saturating well of SpO2 near 100%. ABG satisfactory after CPAP trial today 7.4/29.6/104/base excess of-4.4. But AAO x1, arousable likely due to slow excretion of the sedatives. Tomorrow CPAP trial in the morning. #possible aspiration pneumonia: Under level of consciousness might be contributory to respiratory failure, we will treat as aspiration pneumonia, respiratory culture pending, broad-spectrum antibiotic to continue. D. Gastrointestinal: # liver cirrhosis due to alcohol abuse: Not a great candidate for liver transplant but needs further follow up with GI and hepatology, lifestyle modification and risk reduction prior to further life-saving clinical discussion. Maddrey score 29.6-23.2, does not need any IV steroid, CMP trending to be done. # portal hypertension: Likely due to cirrhosis. Started the patient on Aldactone 50 but can not crush in the NG tube. We will hold for now. # ascites: 1.4 L approximately fluid aspirated+ 2.1 L = 3.5 L both for therapeutic and diagnostic purpose, to rule out spontaneous bacterial peritonitis, sample, culture, lab under work. Might need further paracentesis in this hospitalization. # umbilical hernia: Stable, on incarcerated, previously known. No intervention needed at this point. #NG tube in place, nutrition to continue with tube feeding as tolerated, residual to check every 12 hours. If needed add Reglan 5 t.i.d. tomorrow. # cholelithiasis without cholecystitis # hyperbilirubinemia 5.5, carolann icterus., improved to 4.5. CMP follow up # transaminitis: Typical 2 to 1 pattern of alcoholics, follow up INR/PT/PTT, on daily CMP. # acute cholecystitis not excluded: Both U/S and abdominal CT could not get any at possibly be of cholecystitis, moves further clinical evaluation and once patient is more stable might consider HIDA scan. We will continue broad- spectrum antibiotics as of now. E. Genitourinary: # on Cartwright's catheter, close input output to check. F. Infectious Disease: # Gram-negative bacteremia: E coli, pansensitive septic shock and ascites related complications, mycoplasma anaerobic > IV cefepime and vancomycin change to ceftriaxone and metronidazole to cover for SBP and Gram-negative bacteremia, repeat blood culture, G. Hematology & Oncology: # pancytopenia secondary to liver cirrhosis and possible hepatosplenomegaly # thrombocytopenia: Close follow up, 52 versus 92, trending down # anemia: Transfusion threshold 7, H&H stable. H. Nephrology: # hyponatremia: Corrected for hypoalbuminemia, likely due to cirrhosis, close follow up of CMP daily. Treat underlying cause. Avoid over-correction. # ANDRÉS likely due to vasomotor nephropathy: Multifactorial due to underlying sepsis, possible hepatorenal, on prerenal contributory. Close monitoring of input output, avoid nephrotoxics, close input output to check for urine output/anuria. I. Endocrine: # overweight with BMI of 26.8 # moderate protein energy malnutrition likely due to underlying alcoholism and poor oral intake, dietitian consult when appropriate. J. MSK: # poor muscle mass, likely wound benefitted from physical therapy after acute care. . K. Prophylaxis: PPI: IV PPI DVT: Avoid heparin ambulated products, due to thrombocytopenia. SCDs L. Lines & Drains (with insertion date): IV 10/25 Central 10/25 Arterial line not needed M. Drips: Fentanyl, Versed, Levophed N. Disposition: Remains in [facility] The plan was discussed with the ICU attending Dr. Montano. The patient care consists of total 63 minutes of critical care time excluding the procedures. Dictated by Sammy Hay MD with 3M MModal Fluency. Plan discussed with: Patient, Other (father over phone. primary team, RN) My Orders My Orders Orders - SAMMY HAY RESIDENT Procedure Category Date Status Time Lactulose Oral PHA 10/29/24 In Process 22:00 Complete Blood Count LAB 10/30/24 In Process 04:00 Rbc Morphology LAB 10/30/24 In Process 04:40 Dietary Evaluation Review Recommendations by RD: PPN/TPN Comments: 1) If GI route is preferred, consider Nutrihelp @ 60 mL/hr goal rate as tolerated. Initiate free water flushes @ 200 mL Q6. TF regimen will provide 2160 kcals, 58g Pro, and 1938 mL fuid (including flushes) per 24 hrs. Goal rate will meet ~ 82% daily estimated energy needs and ~ 97% daily estaimted protein needs) 2) If patient remains NPO for more than 7 days, consider TPN to meet at least 75% of estimated needs 3) Advance to hepatic diet when medically feasible, pending ROLLER PRESSER OPERATOR approval 4) Continue to monitor I&O, labs, fluid retention, and skin integrity Expected Outcomes/Goals: 1) patient to receive nutrition within 7 days 2) labs to improve 3) diet to advance 4) f/u in 3 days Date of Service: Oct 30, 2024 Billing Provider: DHEERAJ MONTANO MD Common Visit Codes: 82792-[id number] CARE 30-74 MIN SAMMY HAY RESIDENT Oct 30, 2024 08:31 DHEERAJ MONTANO MD Oct 31, 2024 15:34
[2024-10-30] MEDS: cefTRIAXone 1GM/50ML D5W 50 ML IV SCH (09:17)
[2024-10-30 09:18] LABS: Anisocytosis Slight
[2024-10-30 09:19] LABS: Platelet Estimate Decreased
[2024-10-30] MEDS: SPIRONOLACTONE 25 MG TAB PO SCH (09:32)
[2024-10-30 11:16] LABS: Base Excess -3.5 mmol/L (-2.0-3.0)
[2024-10-30 12:07] LABS: Albumin, Body Fluid <0.2 g/dL (Not Estab.); Amylase, Body Fluid 15 U/L (.); LD, Body Fluid 22 IU/L (.); Protein, Body Fluid 0.6 g/dL (.)
[2024-10-30] MEDS: FREE WATER GT ONE (13:00)
--- NOTE | 2024-10-30 14:57 | DVHPN2 ---
Progress Note - Dictate Date Seen: Oct 30, 2024 Has the PT tested + for MRSA If YES, has PT been informed?: No Medical Necessity Reason Pt with a Central, PICC or Fol: Yes The following are medically ne: Central Line, Cartwright Catheter Reason for cartwright catheter: Strict I&O Subjective The patient is a 29-year-old male with a prior history of cirrhosis due to alcohol abuse, decompensations including ascites, esophageal varices, recent admission for paracentesis, returns with abdominal pain, altered mental status, elevated ammonia, hypotension suspected sepsis on IV pressors. Patient is seen in ICU intubated and sedated; Ascitic fluid showed 120 WBC 90 5% polymorphs, the count is less than 250 that is required for diagnosis of SBP but this may be because the patient has been treated with antibiotics No GI bleed reported; hemoglobin is at 7.7, liver enzymes persistently elevated ;kidney function are improving; repeat ammonia level is normal Patient underwent bedside paracentesis by Dr. Brandon and 2.1 L fluid was removed and sent for analysis Patient is currently off sedation and tube feedings and is undergoing CPAP trial; he failed CPAP trial yesterday because of blood pressure vital signs Vital Sign Date Time Temp Pulse Resp B/P (MAP) Pulse Ox O2 Delivery O2 Flow Rate FiO2 10/30/24 13:42 119 25 108/66 (80) 100 30 10/30/24 12:00 98.3 98.3 10/30/24 11:45 Mechanical Ventilator+ Total Intake and Output 10/29/24 10/29/24 10/30/24 14:59 22:59 06:59 Intake Total 300 ml 674 ml 486 ml Output Total 650 ml 685 ml Balance 300 ml 24 ml -199 ml medications Current Medications Medications Dose Ordered Sig/Gretchen Route Start Time Stop Time Status Last Admin Dose Admin Acetaminophen 650 mg Q6HP PRN PO 10/25/24 08:15 10/28/24 20:48 650 MG Nitroglycerin 0.4 mg Q5MINP PRN SL 10/25/24 08:15 Morphine Sulfate 2 mg Q30M PRN IV 10/25/24 08:15 Multivitamins/ Minerals 1 tab DAILY PO 10/25/24 10:00 10/30/24 09:32 1 TAB Pantoprazole Sodium 40 mg DAILY IV 10/25/24 10:00 10/30/24 09:31 40 MG Propofol 100 ml @ 2.454 mls/ hr Q24H IV 10/25/24 09:45 10/26/24 05:04 24.54 MLS/HR Norepinephrine Bitartrate 250 ml @ 3.75 mls/hr Q24H IV 10/25/24 11:30 10/26/24 03:17 18.75 MLS/HR Rifaximin 550 mg BID PO 10/25/24 22:00 10/30/24 09:32 550 MG Fentanyl Citrate 250 ml @ 2.5 mls/hr Q24H IV 10/26/24 03:45 10/26/24 04:00 2.5 MLS/HR Enteral Nutritional Formula 1,000 ml 50ML/HR GT 10/27/24 13:30 Dexmedetomidine HCl 400 mcg/ Dextrose 100 ml @ 3.76 mls/hr Q24H IV 10/27/24 15:00 Hold Thiamine HCl 100 mg DAILY IV 10/29/24 10:00 10/30/24 09:31 100 MG Folic Acid 1 mg DAILY PO 10/29/24 10:00 10/30/24 09:31 1 MG Lactulose 30 ml BID PO 10/29/24 22:00 10/30/24 09:31 30 ML Ceftriaxone Sodium 50 ml @ 100 mls/hr DAILY@09 IV 10/30/24 09:00 10/30/24 09:17 100 MLS/HR Metronidazole 100 ml @ 100 mls/hr Q8HR IV 10/29/24 22:00 10/30/24 14:44 100 MLS/HR Spironolactone 50 mg DAILY PO 10/30/24 10:00 Purified Water 100 ml Q6HR GT 10/30/24 18:00 UNV objective Examination: GENERAL:Normal, HEENT:Abnormal (jaundice), LUNGS:Normal, CVS:Normal, ABDOMEN:Abnormal (ascitis, umbilical hgernia, abdomen solf but disteneded, rectal tube and NG tube.) laboratory and microbiology Laboratory Tests 10/30/24 04:40 Test 10/30/24 04:40 Range/Units Serum Glucose 102 74-106 mg/dL Problems(with codes): (1) Intractable abdominal pain (2) Elevated liver enzymes (3) Gallstones (4) Splenomegaly (5) Pancytopenia (6) Anemia (7) Alcohol abuse (8) Liver cirrhosis (9) Hepatic encephalopathy (10) Ascites Prognosis Plan Continue IV antibiotics Patient is off sedation for 3 days Patient is being tapered off the Levophed Continue tube feedings Continue CPAP trial Maddrey discrimination function is 29.6. Patient still does not need steroids If bilirubin continues to rise then we will try ursodiol and prednisone Supportive care; add thiamine and folic acid Free water via NG tube as discussed with [facility] nurse I will follow up patient with you Dietary Evaluation Review Recommendations by RD: PPN/TPN Comments: 1) If GI route is preferred, consider Nutrihelp @ 60 mL/hr goal rate as tolerated. Initiate free water flushes @ 200 mL Q6. TF regimen will provide 2160 kcals, 58g Pro, and 1938 mL fuid (including flushes) per 24 hrs. Goal rate will meet ~ 82% daily estimated energy needs and ~ 97% daily estaimted protein needs) 2) If patient remains NPO for more than 7 days, consider TPN to meet at least 75% of estimated needs 3) Advance to hepatic diet when medically feasible, pending COACH WIRER approval 4) Continue to monitor I&O, labs, fluid retention, and skin integrity Expected Outcomes/Goals: 1) patient to receive nutrition within 7 days 2) labs to improve 3) diet to advance 4) f/u in 3 days Plan discussed with: Other ([facility] Nurse) KATELYN JOYCE MD Oct 30, 2024 14:57
[2024-10-30] MEDS ORDERED: FREE WATER GT SCH (18:00)
[2024-10-30] MEDS: FREE WATER GT SCH (19:48)
[2024-10-30] MEDS: Jevity 1.2 Cal/Fiber 1 Liter GT SCH (21:46)
[2024-10-31] VITALS (97 sets, daily range): BP systolic 84–127; BP diastolic 47–91; PULSE 88–120; RESP 7–30; TEMP 97.5–99.2; O2SAT 94–100
--- NOTE | 2024-10-31 05:16 | DVH ---
EXAM: XR Chest, 1 View CLINICAL INDICATION: PT INTUBATED TECHNIQUE: Frontal view of the chest. COMPARISON: XY CHEST XRAY 1 VIEW on DOS: 10/30/24, XY CHEST PORTABLE on DOS: 10/29/24, XY CHEST PORTABL E on DOS: 10/28/24, XY CHEST PORTABLE on DOS: 10/27/24, XY CHEST PORTABLE on DOS: 10/26/24 FINDINGS: LUNGS AND PLEURAL SPACES: Low lung volumes. No consolidation. No pneumothorax. HEART: Unremarkable. No cardiomegaly. MEDIASTINUM: Unremarkable. Normal mediastinal contour. BONES/JOINTS: Unremarkable. No acute fracture. TUBES, LINES AND DEVICES: Right internal jugular central venous catheter tip in the superior vena c bob. Enteric tube tip in the stomach. The endotracheal tube (ETT) is in satisfactory position. OTHER FINDINGS: . IMPRESSION: Low lung volumes.
[2024-10-31 06:00] LABS: Anion Gap 7 (5-15); BUN/Creatinine Ratio 36.5 (10.0-20.0); Glucose 94 mg/dL (74-106); Potassium 4.4 mmol/L (3.5-5.1); Total Protein 6.1 g/dL (5.7-8.2)
[2024-10-31 06:01] LABS: Alanine Aminotransferase 68 U/L (7-40); Alkaline Phosphatase 222 U/L (46-116); Aspartate Aminotransferase 141 U/L (13-40); Basophils # (auto) 0 10 ^3/uL (0-0.2); Bilirubin, Total 5.4 mg/dL (0.2-1.0); Blood Urea Nitrogen 31 mg/dL (9-23); Calcium 8.1 mg/dL (8.7-10.4); Carbon Dioxide 19 mmol/L (20-31); Chloride 119 mmol/L (98-107); Eosinophils # (auto) 0.3 10 ^3/uL (0-0.8); Hemoglobin 7.7 g/dL (13.5-17.5); Monocytes # (auto) 0.5 10 ^3/uL (0-1.3); Monocytes % (auto) 7.6 % (0.0-12.0); Sodium 145 mmol/L (136-145)
[2024-10-31 06:04] LABS: Basophils % (auto) 0.2 % (0.0-2.0); Eosinophils % (auto) 4.6 % (0.0-7.0); Hematocrit 24.1 % (41.0-53.0); Lymphocytes # (auto) 0.6 10 ^3/uL (0.4-5.4); Lymphocytes % (auto) 9.6 % (10.0-50.0); Mean Corpuscular Hemoglobin 30.2 pg (28.0-32.0); Mean Corpuscular Hgb Conc. 32.1 g/dL (32.0-36.0); Mean Corpuscular Volume 94.3 fL (80.0-100.0); Neutrophils # (auto) 5.1 10 ^3/uL (1.6-8.6); Nucleated Red Blood Cells % 0.1 %; Platelet Count (auto) 53 10^3/uL (140-450); Red Blood Cells 2.56 10^6/uL (4.5-5.90); Red Cell Distribution Width 29.9 % (11.8-14.3); White Blood Cell 6.5 10^3/uL (4.4-10.8)
[2024-10-31 06:47] LABS: Platelet Estimate Decreased
[2024-10-31 08:55] LABS: Base Excess -5.7 mmol/L (-2.0-3.0)
--- NOTE | 2024-10-31 08:55 | DVHPNRES ---
Progress Note Date Seen: Oct 31, 2024 Resident Creating Document: SAMMY HAY RESIDENT Has the PT tested + for MRSA If YES, has PT been informed?: No Medical Necessity Reason Pt with a Central, PICC or Fol: Yes The following are medically ne: Central Line, Cartwright Catheter Reason for cartwright catheter: Strict I&O Subjective Patient reports: Feels better Objective vital signs Vital Sign Date Time Temp Pulse Resp B/P (MAP) Pulse Ox O2 Delivery O2 Flow Rate FiO2 10/31/24 08:07 101 10 106/64 (78) 100 30 10/31/24 08:00 99.2 99.2 10/31/24 06:00 Mechanical Ventilator+ Total Intake and Output 10/30/24 10/30/24 10/31/24 15:00 23:00 07:00 Intake Total 310 ml 100 ml 376 ml Output Total 450 ml 975 ml Balance 310 ml -350 ml -599 ml medications Current Medications Medications Dose Ordered Sig/Gretchen Route Start Time Stop Time Status Last Admin Dose Admin Acetaminophen 650 mg Q6HP PRN PO 10/25/24 08:15 10/28/24 20:48 650 MG Nitroglycerin 0.4 mg Q5MINP PRN SL 10/25/24 08:15 Morphine Sulfate 2 mg Q30M PRN IV 10/25/24 08:15 Multivitamins/ Minerals 1 tab DAILY PO 10/25/24 10:00 10/30/24 09:32 1 TAB Pantoprazole Sodium 40 mg DAILY IV 10/25/24 10:00 10/30/24 09:31 40 MG Propofol 100 ml @ 2.454 mls/ hr Q24H IV 10/25/24 09:45 10/26/24 05:04 24.54 MLS/HR Norepinephrine Bitartrate 250 ml @ 3.75 mls/hr Q24H IV 10/25/24 11:30 10/26/24 03:17 18.75 MLS/HR Rifaximin 550 mg BID PO 10/25/24 22:00 10/30/24 21:46 550 MG Fentanyl Citrate 250 ml @ 2.5 mls/hr Q24H IV 10/26/24 03:45 10/26/24 04:00 2.5 MLS/HR Enteral Nutritional Formula 1,000 ml 50ML/HR GT 10/27/24 13:30 10/30/24 21:46 1,000 ML Dexmedetomidine HCl 400 mcg/ Dextrose 100 ml @ 3.76 mls/hr Q24H IV 10/27/24 15:00 Hold Thiamine HCl 100 mg DAILY IV 10/29/24 10:00 10/30/24 09:31 100 MG Folic Acid 1 mg DAILY PO 10/29/24 10:00 10/30/24 09:31 1 MG Lactulose 30 ml BID PO 10/29/24 22:00 10/30/24 21:46 30 ML Ceftriaxone Sodium 50 ml @ 100 mls/hr DAILY@09 IV 10/30/24 09:00 10/30/24 09:17 100 MLS/HR Metronidazole 100 ml @ 100 mls/hr Q8HR IV 10/29/24 22:00 10/31/24 07:34 100 MLS/HR Spironolactone 50 mg DAILY PO 10/30/24 10:00 Purified Water 100 ml Q6HR GT 10/30/24 18:00 10/30/24 23:42 100 ML Examination GENERAL:Abnormal (Remains off of sedation and ventilated in minimal settings), HEENT:Normal (ET tube in place), NECK:Normal (Central line in place), LUNGS:Normal (Bilateral equal air entry, thinking with the ventilation, basal rales bilateral), CVS:Normal, ABDOMEN:Abnormal (Fluid thrill present, bilateral flank full, shifting dullness, inverted umblicus since prior time, much improved than last week), MSK:Normal, SKIN:Abnormal (visible icterus), NEURO:Abnormal (Sedated and ventilated, he is awake and more alert ), :Normal (On Cartwright's catheter) laboratory and microbiology Laboratory Tests 10/31/24 04:50 Test 10/31/24 04:50 Range/Units Serum Glucose 94 74-106 mg/dL Microbiology Date/Time Source Procedure Growth Status 10/29/24 17:40 Blood Blood Culture - Preliminary NO GROWTH AFTER 24 HOURS OF INCUBATION. Resulted 10/26/24 17:50 Ascities Fluid Gram Stain - Final Resulted 10/26/24 17:50 Ascities Fluid Body Fluid Culture - Preliminary Resulted 10/26/24 09:20 Nose MRSA Screen - Final Complete 10/25/24 09:20 Voided Urine Urine Culture - Final Complete 10/25/24 08:18 Sputum Gram Stain - Final Complete 10/25/24 08:18 Sputum Respiratory Culture - Final Complete Labs and/or images reviewed: Labs reviewed by me, Image(s) reviewed by me Problem List/Assessment/Plan Problem List/Assessment/Plan ICU Course: 29-year-old gentleman with past medical history significant for hypertension, chronic alcoholism, malnutrition, liver cirrhosis with decompensated liver failure previously presented to the ED with abdominal pain, was found to have septic shock, toxic/metabolic encephalopathy and was unable to protect airways and was intubated and sedated and was upgraded to the ICU/[facility] use status, limited history but as per family patient was still drinking at least 3 weeks prior to this incident. Patient remains intubated and off of sedation but sleepy failed CPAP today. Frequent past hospitalization with alcohol Hospitalization day: 11 A. Neurology: # sedation for mechanical ventilation synchronization off since TuesdayOctober 27/2025 likely slow excretion of # toxic/metabolic hepatic encephalopathy: Presented with altered level of consciousness likely due to the above, multifactorial possibly due to hyperammonemia, sepsis, bacteremia, infection, electrolyte disturbances. # chronic alcohol abuse: Despite having progressed to liver cirrhosis in her early 30s patient continues to drink, needs further evaluation and supportive care and 12 step alcohol rehabilitation program to be recommended at recovery of the acute stage. # hyperammonemia, improved: b.i.d. lactulose, with rifaximin 550 b.i.d. with target bowel movement of 2-3 times per day. # anxiety and agitation: as needed Precedex while on intubation but patient is overly sensitive q8 hours of iv Ativan 0.5 mg if needed increase the frequency. AVOID STRICTLY: versed, propofol and fentanyl. B. Cardiology: # hypotension improved, Off of Levophed. # history of hypertension held all antihypertensives, target blood pressure for this gentleman will be 140/90 or below as per aha/ACC guidelines. C. Respiratory: # acute respiratory failure: AC/VC/VT 450, peep of 5, FiO2 of 30%, minimal when sitting saturating well of SpO2 near 100% failed CPAP trial this AM after 2 hours. RR fell to 6, RBSS 13 and NIF to 17 likely due to altered level of consciousness. Ruled out secondary causes of hypothyroidism, central, musculoskeletal or neurological cases of bradypnea. # possible aspiration pneumonia: Under level of consciousness might be contributory to respiratory failure, broad-spectrum antibiotic to continue. D. Gastrointestinal: # liver cirrhosis due to alcohol abuse, Maddrey score <32, does not need any IV steroid, CMP trending to be done. # portal hypertension: Likely due to cirrhosis. We will hold aldactone for now. # ascites: 1.4 L approximately fluid aspirated+ 2.1 L = 3.5 L both for therapeutic and diagnostic purpose, to rule out spontaneous bacterial peritonitis, sample, culture, lab under work. Further therapeutic paracentesis in this hospitalization with IR. # umbilical hernia: Stable, on incarcerated, previously known. No intervention needed at this point. # NG tube in place, nutrition to continue with tube feeding as tolerated. # cholelithiasis without cholecystitis # hyperbilirubinemia, improving. CMP follow up # transaminitis improved # acute cholecystitis not excluded, further clinical evaluation and once patient is more stable might consider HIDA scan. E. Genitourinary: # on Cartwright's catheter, close input output to check. F. Infectious Disease: # Gram-negative bacteremia: E coli, pansensitive septic shock and ascites related complications, mycoplasma anaerobic > IV cefepime and vancomycin change to ceftriaxone and metronidazole and follow Gram-negative bacteremia, repeat blood culture, G. Hematology & Oncology: # pancytopenia secondary to liver cirrhosis and possible hepatosplenomegaly # thrombocytopenia: Close follow up, no active bleeding noted. # anemia: Transfusion threshold 7, H&H stable. H. Nephrology: # hyponatremia: Corrected for hypoalbuminemia, likely due to cirrhosis, close follow up of CMP daily. # ANDRÉS likely due to vasomotor nephropathy, resolved, check intake output and avoid nephrotoxics. I. Endocrine: # moderate protein energy malnutrition likely due to underlying alcoholism and poor oral intake, dietitian consult when appropriate. J. MSK: # poor muscle mass, likely wound benefitted from physical therapy after acute care. . K. Prophylaxis: PPI: IV PPI DVT: Avoid heparin ambulated products, due to thrombocytopenia. SCDs L. Lines & Drains (with insertion date): IV 10/25 Central 10/25 Arterial line not needed M. Drips off of all. Started as needed precedex. N. Disposition: Remains in [facility] The plan was discussed with the ICU attending Dr. Montano. The patient care consists of total 81 minutes of critical care time excluding the procedures INCLUDING CPAP TRIAL Dictated by Sammy Hay MD with 3M MModal Fluency. Plan discussed with: Patient, Other (father , RN, primary time. ) My Orders My Orders Orders - SAMMY HAY RESIDENT Procedure Category Date Status Time Chest Portable XY 10/31/24 Resulted 05:00 Cpap Trial For Am ORDERS 10/31/24 Transmitted 06:55 Dietary Evaluation Review Recommendations by RD: PPN/TPN Comments: 1) If GI route is preferred, consider Nutrihelp @ 60 mL/hr goal rate as tolerated. Initiate free water flushes @ 200 mL Q6. TF regimen will provide 2160 kcals, 58g Pro, and 1938 mL fuid (including flushes) per 24 hrs. Goal rate will meet ~ 82% daily estimated energy needs and ~ 97% daily estaimted protein needs) 2) If patient remains NPO for more than 7 days, consider TPN to meet at least 75% of estimated needs 3) Advance to hepatic diet when medically feasible, pending PERSONAL TRAINER approval 4) Continue to monitor I&O, labs, fluid retention, and skin integrity Expected Outcomes/Goals: 1) patient to receive nutrition within 7 days 2) labs to improve 3) diet to advance 4) f/u in 3 days Labs/Diagnostic Data Laboratory Tests Test 10/31/24 08:24 10/31/24 04:50 10/30/24 11:00 Range/Units Blood Gas Specimen Type Arterial Arterial Blood Gas Sample Site Right radial Right radial Blood Gas Patient Temperature 37.0 37.0 Arterial Blood Date Drawn [id number] Arterial Blood pH 7.420 7.435 7.350-7.450 Arterial Blood Partial Pressure CO2 28.3 L 30.7 L 35.0-48.0 mmHg Arterial Blood Partial Pressure O2 125.7 H 116.7 H 83.0-108.0 mmHg Arterial Blood HCO3 17.9 L 20.2 L 21.0-28.0 mmol/L Arterial Blood Oxygen Saturation 98.2 H 98.0 94.0-98.0 % Arterial Blood Base Excess -5.7 L -3.5 L -2.0-3.0 mmol/L Arterial Blood Oxyhemoglobin 96.9 97.0 94.0-98.0 % Arterial Blood Carboxyhemoglobin 0.9 0.4 L 0.5-1.5 % Arterial Blood Methemoglobin 0.4 0.6 0.0-1.5 % John Test Modified Modified Blood Gas Total Hemoglobin 8.10 L 8.60 L 13.5-17.5 g/dL Blood Gas Modality Vent - cpap Vent - ac FiO2 % 30.0 30.0 Blood Gas Pressure Support 8 Blood Gas PEEP or CPAP 5.0 5.0 White Blood Count 6.5 4.4-10.8 10^3/uL Red Blood Count 2.56 L 4.5-5.90 10^6/uL Hemoglobin 7.7 L 13.5-17.5 g/dL Hematocrit 24.1 L 41.0-53.0 % Mean Corpuscular Volume 94.3 80.0-100.0 fL Mean Corpuscular Hemoglobin 30.2 28.0-32.0 pg Mean Corpuscular Hemoglobin Concent 32.1 32.0-36.0 g/dL Red Cell Distribution Width 29.9 H 11.8-14.3 % Platelet Count 53 L 140-450 10^3/uL Mean Platelet Volume 8.3 6.9-10.8 fL Neutrophils (%) (Auto) 78.0 37.0-80.0 % Lymphocytes (%) (Auto) 9.6 L 10.0-50.0 % Monocytes (%) (Auto) 7.6 0.0-12.0 % Eosinophils (%) (Auto) 4.6 0.0-7.0 % Basophils (%) (Auto) 0.2 0.0-2.0 % Neutrophils # (Auto) 5.1 1.6-8.6 10 ^3/uL Lymphocytes # (Auto) 0.6 0.4-5.4 10 ^3/uL Monocytes # (Auto) 0.5 0-1.3 10 ^3/uL Eosinophils # (Auto) 0.3 0-0.8 10 ^3/uL Basophils # (Auto) 0 0-0.2 10 ^3/uL Nucleated Red Blood Cells 0.1 % Platelet Estimate Decreased Sodium Level 145 136-145 mmol/L Potassium Level 4.4 3.5-5.1 mmol/L Chloride Level 119 H 98-107 mmol/L Carbon Dioxide Level 19 L 20-31 mmol/L Anion Gap 7 5-15 Blood Urea Nitrogen 31 H 9-23 mg/dL Creatinine 0.85 0.700-1.30 mg/dL Glomerular Filtration Rate Calc 119 >90 mL/min BUN/Creatinine Ratio 36.5 H 10.0-20.0 Serum Glucose 94 74-106 mg/dL Calcium Level 8.1 L 8.7-10.4 mg/dL Total Bilirubin 5.4 H 0.2-1.0 mg/dL Aspartate Amino Transferase (AST) 141 H 13-40 U/L Alanine Aminotransferase (ALT) 68 H 7-40 U/L Alkaline Phosphatase 222 H 46-116 U/L Total Protein 6.1 5.7-8.2 g/dL Albumin 2.0 L 3.2-4.8 g/dL Blood Gas Set Respiration Rate 18.0 Blood Gas Tidal Volume 450.0 Microbiology Date/Time Source Procedure Growth Status 10/29/24 17:40 Blood Blood Culture - Preliminary NO GROWTH AFTER 24 HOURS OF INCUBATION. Resulted 10/26/24 17:50 Ascities Fluid Gram Stain - Final Resulted 10/26/24 17:50 Ascities Fluid Body Fluid Culture - Preliminary Resulted 10/26/24 09:20 Nose MRSA Screen - Final Complete 10/25/24 09:20 Voided Urine Urine Culture - Final Complete 10/25/24 08:18 Sputum Gram Stain - Final Complete 10/25/24 08:18 Sputum Respiratory Culture - Final Complete vital signs Vital Sign Date Time Temp Pulse Resp B/P (MAP) Pulse Ox O2 Delivery O2 Flow Rate FiO2 10/31/24 08:07 101 10 106/64 (78) 100 30 10/31/24 08:00 99.2 99.2 10/31/24 06:00 Mechanical Ventilator+ Total Intake and Output 10/30/24 10/30/24 10/31/24 15:00 23:00 07:00 Intake Total 310 ml 100 ml 376 ml Output Total 450 ml 975 ml Balance 310 ml -350 ml -599 ml medications Current Medications Medications Dose Ordered Sig/Gretchen Route Start Time Stop Time Status Last Admin Dose Admin Acetaminophen 650 mg Q6HP PRN PO 10/25/24 08:15 10/28/24 20:48 650 MG Nitroglycerin 0.4 mg Q5MINP PRN SL 10/25/24 08:15 Morphine Sulfate 2 mg Q30M PRN IV 10/25/24 08:15 Multivitamins/ Minerals 1 tab DAILY PO 10/25/24 10:00 10/30/24 09:32 1 TAB Pantoprazole Sodium 40 mg DAILY IV 10/25/24 10:00 10/30/24 09:31 40 MG Propofol 100 ml @ 2.454 mls/ hr Q24H IV 10/25/24 09:45 10/26/24 05:04 24.54 MLS/HR Norepinephrine Bitartrate 250 ml @ 3.75 mls/hr Q24H IV 10/25/24 11:30 10/26/24 03:17 18.75 MLS/HR Rifaximin 550 mg BID PO 10/25/24 22:00 10/30/24 21:46 550 MG Fentanyl Citrate 250 ml @ 2.5 mls/hr Q24H IV 10/26/24 03:45 10/26/24 04:00 2.5 MLS/HR Enteral Nutritional Formula 1,000 ml 50ML/HR GT 10/27/24 13:30 10/30/24 21:46 1,000 ML Dexmedetomidine HCl 400 mcg/ Dextrose 100 ml @ 3.76 mls/hr Q24H IV 10/27/24 15:00 Hold Thiamine HCl 100 mg DAILY IV 10/29/24 10:00 10/30/24 09:31 100 MG Folic Acid 1 mg DAILY PO 10/29/24 10:00 10/30/24 09:31 1 MG Lactulose 30 ml BID PO 10/29/24 22:00 10/30/24 21:46 30 ML Ceftriaxone Sodium 50 ml @ 100 mls/hr DAILY@09 IV 10/30/24 09:00 10/30/24 09:17 100 MLS/HR Metronidazole 100 ml @ 100 mls/hr Q8HR IV 10/29/24 22:00 10/31/24 07:34 100 MLS/HR Spironolactone 50 mg DAILY PO 10/30/24 10:00 Purified Water 100 ml Q6HR GT 10/30/24 18:00 10/30/24 23:42 100 ML laboratory and microbiology Laboratory Tests 10/31/24 04:50 Test 10/31/24 04:50 Range/Units Serum Glucose 94 74-106 mg/dL Date of Service: Oct 31, 2024 Billing Provider: DHEERAJ MONTANO MD Common Visit Codes: 00995-[id number] CARE 30-74 MIN, [id number] CARE-EACH +30MIN SAMMY HAY Oct 31, 2024 08:55 DHEERAJ MONTANO MD Nov 01, 2024 11:45
[2024-10-31 10:21] LABS: Free T3 2.02 pg/mL (2.3-4.2); Free T4 (Free Thyroxine) 0.64 ng/dL (0.89-1.76)
--- NOTE | 2024-10-31 20:44 | DVHPN2 ---
Progress Note - Dictate Date Seen: Oct 31, 2024 Has the PT tested + for MRSA If YES, has PT been informed?: No Medical Necessity Reason Pt with a Central, PICC or Fol: Yes The following are medically ne: Central Line, Cartwright Catheter Reason for cartwright catheter: Strict I&O Subjective Patient was tolerating trial of present CPAP in the morning However the patient became very agitated this evening trying to pull out his ETT and his IV Patient required to be sedated again Initial blood culture grew Gram-negative rods E coli, repeat cultures are negative Ascitic fluid was positive for coag-negative staph vital signs Vital Sign Date Time Temp Pulse Resp B/P (MAP) Pulse Ox O2 Delivery O2 Flow Rate FiO2 10/31/24 18:20 84/51 10/31/24 18:18 88 28 100 30 10/31/24 18:00 Mechanical Ventilator+ 10/31/24 16:00 98.0 98.0 Total Intake and Output 10/30/24 10/30/24 10/31/24 15:00 23:00 07:00 Intake Total 310 ml 100 ml 376 ml Output Total 450 ml 975 ml Balance 310 ml -350 ml -599 ml medications Current Medications Medications Dose Ordered Sig/Gretchen Route Start Time Stop Time Status Last Admin Dose Admin Acetaminophen 650 mg Q6HP PRN PO 10/25/24 08:15 10/28/24 20:48 650 MG Nitroglycerin 0.4 mg Q5MINP PRN SL 10/25/24 08:15 Morphine Sulfate 2 mg Q30M PRN IV 10/25/24 08:15 Multivitamins/ Minerals 1 tab DAILY PO 10/25/24 10:00 10/31/24 09:34 1 TAB Pantoprazole Sodium 40 mg DAILY IV 10/25/24 10:00 10/31/24 09:36 40 MG Propofol 100 ml @ 2.454 mls/ hr Q24H IV 10/25/24 09:45 10/26/24 05:04 24.54 MLS/HR Norepinephrine Bitartrate 250 ml @ 3.75 mls/hr Q24H IV 10/25/24 11:30 10/31/24 18:20 3.75 MLS/HR Rifaximin 550 mg BID PO 10/25/24 22:00 10/31/24 09:34 550 MG Fentanyl Citrate 250 ml @ 2.5 mls/hr Q24H IV 10/26/24 03:45 10/26/24 04:00 2.5 MLS/HR Enteral Nutritional Formula 1,000 ml 50ML/HR GT 10/27/24 13:30 10/30/24 21:46 1,000 ML Dexmedetomidine HCl 400 mcg/ Dextrose 100 ml @ 3.76 mls/hr Q24H IV 10/27/24 15:00 10/31/24 14:00 3.76 MLS/HR Thiamine HCl 100 mg DAILY IV 10/29/24 10:00 10/31/24 09:36 100 MG Folic Acid 1 mg DAILY PO 10/29/24 10:00 10/31/24 09:34 1 MG Lactulose 30 ml BID PO 10/29/24 22:00 10/31/24 09:35 30 ML Ceftriaxone Sodium 50 ml @ 100 mls/hr DAILY@09 IV 10/30/24 09:00 10/31/24 09:34 100 MLS/HR Metronidazole 100 ml @ 100 mls/hr Q8HR IV 10/29/24 22:00 10/31/24 07:34 100 MLS/HR Spironolactone 100 mg DAILY PO 11/01/24 10:00 Lorazepam 0.5 mg Q8HP PRN IV 10/31/24 17:45 objective Examination: GENERAL:Normal, HEENT:Abnormal (jaundice), LUNGS:Normal, CVS:Normal, ABDOMEN:Abnormal (ascitis, umbilical hgernia, abdomen solf but disteneded, rectal tube and NG tube.) laboratory and microbiology Laboratory Tests 10/31/24 04:50 Test 10/31/24 04:50 Range/Units Serum Glucose 94 74-106 mg/dL Problems(with codes): (1) E. coli septicemia (2) Ascites (3) Intractable abdominal pain (4) Elevated liver enzymes (5) Gallstones (6) Splenomegaly (7) Pancytopenia (8) Anemia (9) Alcohol abuse (10) Liver cirrhosis (11) Hepatic encephalopathy (12) Generalized weakness Prognosis Plan Continue IV antibiotics Continue tube feedings Continue CPAP trial when patient more stable Maddrey discrimination function is 27. Patient still does not need steroids Free water via NG tube as discussed with [facility] nurse I will follow up patient with you Dietary Evaluation Review Recommendations by RD: PPN/TPN Comments: 1) If GI route is preferred, consider Nutrihelp @ 60 mL/hr goal rate as tolerated. Initiate free water flushes @ 200 mL Q6. TF regimen will provide 2160 kcals, 58g Pro, and 1938 mL fuid (including flushes) per 24 hrs. Goal rate will meet ~ 82% daily estimated energy needs and ~ 97% daily estaimted protein needs) 2) If patient remains NPO for more than 7 days, consider TPN to meet at least 75% of estimated needs 3) Advance to hepatic diet when medically feasible, pending TROUBLE LOCATOR TEST DESK approval 4) Continue to monitor I&O, labs, fluid retention, and skin integrity Expected Outcomes/Goals: 1) patient to receive nutrition within 7 days 2) labs to improve 3) diet to advance 4) f/u in 3 days Plan discussed with: KATELYN Kessler MD Oct 31, 2024 20:44
[2024-10-31] MEDS: LORazepam 2MG/ML-1ML VIAL IV PRN (20:51)
[2024-11-01] VITALS (97 sets, daily range): BP systolic 82–112; BP diastolic 44–75; PULSE 57–95; RESP 8–27; TEMP 96.8–98.2; O2SAT 95–100
--- NOTE | 2024-11-01 00:33 | DVH ---
INDICATION: FLUID CHECK TECHNIQUE: Multiple real-time sonographic images were obtained of the right upper quadrant. COMPARISON: US GALLBLADDER on DOS: 10/25/24, US ABDOMEN LIMITED on DOS: 10/18/24, US ABDOMEN LIMITED on DOS: 10/15/24, US ABDOMEN LIMITED on DOS: 09/26/24, US ABDOMEN LIMITED on DOS: 12/15/23 FINDINGS / IMPRESSION: Limited ultrasound study of the abdomen was performed to assess for ascites. Fluid collections are no tish in all 4 quadrants measuring up to 12 cm in depth.
--- NOTE | 2024-11-01 05:48 | DVH ---
EXAM: XR Chest, 1 View CLINICAL INDICATION: ETT TECHNIQUE: Frontal view of the chest. COMPARISON: XY CHEST PORTABLE on DOS: 10/31/24, XY CHEST XRAY 1 VIEW on DOS: 10/30/24, XY CHEST PORTABL E on DOS: 10/29/24, XY CHEST PORTABLE on DOS: 10/28/24, XY CHEST PORTABLE on DOS: 10/27/24 FINDINGS: LUNGS AND PLEURAL SPACES: Mild pulmonary congestion. No consolidation. No pneumothorax. HEART: Unremarkable. No cardiomegaly. MEDIASTINUM: Unremarkable. Normal mediastinal contour. BONES/JOINTS: Unremarkable. No acute fracture. TUBES, LINES AND DEVICES: The endotracheal tube (ETT) is in satisfactory position. Right internal jugular central venous catheter tip in the superior vena cava. Enteric tube tip in the stomach. OTHER FINDINGS: . IMPRESSION: Mild pulmonary congestion.
[2024-11-01 06:48] LABS: Basophils # (auto) 0 10 ^3/uL (0-0.2); Eosinophils # (auto) 0.5 10 ^3/uL (0-0.8); Hemoglobin 7.5 g/dL (13.5-17.5); Neutrophils # (auto) 5.1 10 ^3/uL (1.6-8.6); White Blood Cell 6.8 10^3/uL (4.4-10.8)
[2024-11-01 06:51] LABS: Basophils % (auto) 0.2 % (0.0-2.0); Eosinophils % (auto) 7.6 % (0.0-7.0); Hematocrit 23.3 % (41.0-53.0); Lymphocytes # (auto) 0.8 10 ^3/uL (0.4-5.4); Mean Corpuscular Hemoglobin 30.4 pg (28.0-32.0); Mean Corpuscular Hgb Conc. 32.4 g/dL (32.0-36.0); Mean Corpuscular Volume 93.8 fL (80.0-100.0); Monocytes # (auto) 0.5 10 ^3/uL (0-1.3); Monocytes % (auto) 6.6 % (0.0-12.0); Neutrophils % (auto) 74.6 % (37.0-80.0); Nucleated Red Blood Cells % 0.1 %; Platelet Count (auto) 54 10^3/uL (140-450); Red Blood Cells 2.48 10^6/uL (4.5-5.90); Red Cell Distribution Width 29.9 % (11.8-14.3)
[2024-11-01 07:03] LABS: Anion Gap 5 (5-15); Carbon Dioxide 21 mmol/L (20-31); Potassium 4.5 mmol/L (3.5-5.1); Total Protein 5.9 g/dL (5.7-8.2)
[2024-11-01 07:04] LABS: Alanine Aminotransferase 63 U/L (7-40); Albumin 1.9 g/dL (3.2-4.8); Alkaline Phosphatase 203 U/L (46-116); Aspartate Aminotransferase 115 U/L (13-40); Bilirubin, Total 4.3 mg/dL (0.2-1.0); Blood Urea Nitrogen 34 mg/dL (9-23); Calcium 8.1 mg/dL (8.7-10.4); Chloride 122 mmol/L (98-107); Glucose 110 mg/dL (74-106); Sodium 148 mmol/L (136-145)
[2024-11-01 08:55] LABS: Anisocytosis Marked; Platelet Estimate Decreased; Target Cell FEW; Tear Drop Cells FEW
--- NOTE | 2024-11-01 09:22 | DVH ---
US PARACENTESIS, HISTORY: ASCITES PROCEDURE: Informed consent was obtained. The patient was placed in supine position. A limited locali zation ultrasound of the abdomen was obtained, and the skin site over the largest pocket of fluid was marked and entry site was prepped with chlorhexidine which was allowed to dry and draped in the usua l sterile fashion. Time out was performed. Following administration of 1% lidocaine local anesthetic, a 5 Cymro centesis needle catheter was percutaneously inserted into the peritoneal collection until fluid was aspirated. The catheter was advanced into the fluid collection and the needle removed. Abo ut 3000 cc of fluid was aspirated and specimen sent for appropriate cultures/cytology/cultures and cy tology. The catheter was then removed and a sterile dressing applied. No immediate complication was identified. FINDINGS: Limited ultrasound imaging demonstrates mild ascites. Aspirated fluid was clear and serous. IMPRESSION: US-guided paracentesis with 3L removed.
[2024-11-01] MEDS: SPIRONOLACTONE 25 MG TAB PO SCH (09:44)
--- NOTE | 2024-11-01 09:56 | DVHPNRES ---
Progress Note Date Seen: Nov 01, 2024 Resident Creating Document: SAMMY HAY RESIDENT Has the PT tested + for MRSA If YES, has PT been informed?: No Medical Necessity Reason Pt with a Central, PICC or Fol: Yes The following are medically ne: Central Line, Cartwright Catheter Reason for cartwright catheter: Strict I&O Subjective Review of Systems -hemodynamically stable, FiO2 30%, -H&H stable, platelets still 54 versus 53, -paracentesis with 3 L removed by IR, free water deficit 1.1 -stopped free water, 148 versus 125 -T bili slowly coming down 4.3, versus 5.4, transaminitis, albumin still low 1.9, T3-T4 lower side but he is normal. Ascitic fluid grew staph epidermides resistant to ampicillin and penicillin patient on ceftriaxone and metronidazole -CXR 4.8 this morning unremarkable changes -Aldactone 100 could not be given, CPAP trial Precedex lorazepam restrained -7.4, PO2 123.9, pCO2 21, ABG base excess -5 non-anion gap metabolic acidosis Objective vital signs Vital Sign Date Time Temp Pulse Resp B/P (MAP) Pulse Ox O2 Delivery O2 Flow Rate FiO2 11/01/24 08:00 97.7 65 18 99/62 (74) 100 97.7 11/01/24 07:49 30 11/01/24 06:00 Mechanical Ventilator+ Total Intake and Output 10/31/24 10/31/24 11/01/24 15:00 23:00 07:00 Intake Total 61.28 ml 310.40 ml 382.31 ml Output Total 700 ml 350 ml Balance 61.28 ml -389.60 ml 32.31 ml medications Current Medications Medications Dose Ordered Sig/Gretchen Route Start Time Stop Time Status Last Admin Dose Admin Acetaminophen 650 mg Q6HP PRN PO 10/25/24 08:15 10/28/24 20:48 650 MG Nitroglycerin 0.4 mg Q5MINP PRN SL 10/25/24 08:15 Morphine Sulfate 2 mg Q30M PRN IV 10/25/24 08:15 Multivitamins/ Minerals 1 tab DAILY PO 10/25/24 10:00 11/01/24 09:43 1 TAB Pantoprazole Sodium 40 mg DAILY IV 10/25/24 10:00 11/01/24 09:43 40 MG Propofol 100 ml @ 2.454 mls/ hr Q24H IV 10/25/24 09:45 10/26/24 05:04 24.54 MLS/HR Norepinephrine Bitartrate 250 ml @ 3.75 mls/hr Q24H IV 10/25/24 11:30 10/31/24 18:20 3.75 MLS/HR Rifaximin 550 mg BID PO 10/25/24 22:00 11/01/24 09:43 550 MG Fentanyl Citrate 250 ml @ 2.5 mls/hr Q24H IV 10/26/24 03:45 11/01/24 08:16 2.5 MLS/HR Enteral Nutritional Formula 1,000 ml 50ML/HR GT 10/27/24 13:30 10/30/24 21:46 1,000 ML Dexmedetomidine HCl 400 mcg/ Dextrose 100 ml @ 3.76 mls/hr Q24H IV 10/27/24 15:00 10/31/24 22:04 3.76 MLS/HR Thiamine HCl 100 mg DAILY IV 10/29/24 10:00 11/01/24 09:43 100 MG Folic Acid 1 mg DAILY PO 10/29/24 10:00 11/01/24 09:44 1 MG Lactulose 30 ml BID PO 10/29/24 22:00 11/01/24 09:45 30 ML Ceftriaxone Sodium 50 ml @ 100 mls/hr DAILY@09 IV 10/30/24 09:00 11/01/24 09:43 100 MLS/HR Metronidazole 100 ml @ 100 mls/hr Q8HR IV 10/29/24 22:00 11/01/24 05:33 100 MLS/HR Spironolactone 100 mg DAILY PO 11/01/24 10:00 11/01/24 09:44 100 MG Lorazepam 0.5 mg Q8HP PRN IV 10/31/24 17:45 10/31/24 20:51 0.5 MG Examination GENERAL:Abnormal (Remains off of sedation and ventilated in minimal settings), HEENT:Normal (ET tube in place), NECK:Normal (Central line in place), LUNGS:Normal (Bilateral equal air entry, thinking with the ventilation, basal rales bilateral), CVS:Normal, ABDOMEN:Abnormal (Fluid thrill present, bilateral flank full, shifting dullness, inverted umblicus since prior time, much improved than last week), MSK:Normal, SKIN:Abnormal (visible icterus), NEURO:Abnormal (Sedated and ventilated, he is awake and more alert ), :Normal (On Cartwright's catheter) More awake later part of the morning. laboratory and microbiology Laboratory Tests 11/01/24 05:08 Test 11/01/24 05:08 Range/Units Serum Glucose 110 H 74-106 mg/dL Microbiology Date/Time Source Procedure Growth Status 10/29/24 17:40 Blood Blood Culture - Preliminary NO GROWTH AFTER 48 HOURS OF INCUBATION. Resulted 10/26/24 17:50 Ascities Fluid Gram Stain - Final Complete 10/26/24 17:50 Body Fluid Culture - Final Staphylococcus epidermidis Complete 10/26/24 09:20 Nose MRSA Screen - Final Complete 10/25/24 09:20 Voided Urine Urine Culture - Final Complete 10/25/24 08:18 Sputum Gram Stain - Final Complete 10/25/24 08:18 Sputum Respiratory Culture - Final Complete Labs and/or images reviewed: Labs reviewed by me, Image(s) reviewed by me Problem List/Assessment/Plan Problem List/Assessment/Plan ICU Course: 29-year-old gentleman with past medical history significant for hypertension, chronic alcoholism, malnutrition, liver cirrhosis with decompensated liver failure previously presented to the ED with abdominal pain, was found to have septic shock, toxic/metabolic encephalopathy and was unable to protect airways and was intubated and sedated and was upgraded to the ICU/ANNIE use status, limited history but as per family patient was still drinking at least 3 weeks prior to this incident. Patient remains intubated and off of sedation but sleepy failed CPAP today. Frequent past hospitalization with alcohol abuse and liver cirrhosis related complications. Hospitalization day: 12 A. Neurology: # sedation for mechanical ventilation synchronization off since TuesdayOctober 27/2025 likely slow excretion of medications # toxic/metabolic hepatic encephalopathy: Presented with altered level of consciousness likely due to the above, multifactorial possibly due to hyperammonemia, sepsis, bacteremia, infection, electrolyte disturbances. # chronic alcohol abuse: Despite having progressed to liver cirrhosis in her early 30s patient continues to drink, needs further evaluation and supportive care and 12 step alcohol rehabilitation program to be recommended at recovery of the acute stage. # hyperammonemia, improved: b.i.d. lactulose, with rifaximin 550 b.i.d. with target bowel movement of 2-3 times per day. # anxiety and agitation: as needed Precedex while on intubation but patient is overly sensitive q8 hours of iv Ativan 0.5 mg if needed increase the frequency. AVOID STRICTLY: versed, propofol and fentanyl. as needed restrictions. will try to avoid. # Bundle of delirium precaution. B. Cardiology: # hypotension improved, was Off of Levophed. as needed Levophed to keep MAP >65 # history of hypertension held all antihypertensives, target blood pressure for this gentleman will be 140/90 or below as per aha/ACC guidelines. C. Respiratory: # acute respiratory failure: AC/VC/VT 450, peep of 5, FiO2 of 30%, minimal when sitting saturating well of SpO2 near 100% failed CPAP trial this AM after 2 hours. RR fell to 6, RBSS 13 and NIF to 17 likely due to altered level of consciousness. Ruled out secondary causes of hypothyroidism, central, musculoskeletal or neurological cases of bradypnea. Ongoing CPAP trial, cxr unremarkable, no further bradypnea. NIF -20. tolerating cpap close to extubation. NPO and aspiration precaution. # possible aspiration pneumonia: Under level of consciousness might be contributory to respiratory failure, broad-spectrum antibiotic to continue. D. Gastrointestinal: # liver cirrhosis due to alcohol abuse, Maddrey score <32, does not need any IV steroid, CMP trending to be done. # portal hypertension: Likely due to cirrhosis. We will hold aldactone for now. # ascites: 1.4 L approximately fluid aspirated+ 2.1 L = 3.5 L both for therapeutic and diagnostic purpose, to rule out spontaneous bacterial peritonitis, sample, culture, lab under work. Further therapeutic paracentesis in this hospitalization with IR. # umbilical hernia: Stable, on incarcerated, previously known. No intervention needed at this point. # NG tube in place, nutrition to continue with tube feeding as tolerated. # cholelithiasis without cholecystitis # hyperbilirubinemia, improving. CMP follow up # transaminitis improved # acute cholecystitis not excluded, further clinical evaluation and once patient is more stable might consider HIDA scan. E. Genitourinary: # on Cartwright's catheter, close input output to check. F. Infectious Disease: # Gram-negative bacteremia: E coli, pansensitive septic shock and ascites related complications, mycoplasma anaerobic > IV cefepime and vancomycin change to ceftriaxone and metronidazole and follow Gram-negative bacteremia, repeat blood culture, positive staph epidermides likely contamination no need of change in abx. G. Hematology & Oncology: # pancytopenia secondary to liver cirrhosis and possible hepatosplenomegaly # thrombocytopenia: Close follow up, no active bleeding noted. # anemia: Transfusion threshold 7, H&H stable. H. Nephrology: # hyponatremia: Corrected for hypoalbuminemia, likely due to cirrhosis, close follow up of CMP daily. # ANDRÉS likely due to vasomotor nephropathy, resolved, check intake output and avoid nephrotoxics. I. Endocrine: # moderate protein energy malnutrition likely due to underlying alcoholism and poor oral intake, dietitian consult when appropriate. J. MSK: # poor muscle mass, likely wound benefitted from physical therapy after acute care. . K. Prophylaxis: PPI: IV PPI DVT: Avoid heparin ambulated products, due to thrombocytopenia. SCDs L. Lines & Drains (with insertion date): IV 10/25 Central 10/25 Arterial line not needed M. Drips off of all. Started as needed precedex. N. Disposition: Remains in [facility] The plan was discussed with the ICU attending Dr. Montano. The patient care consists of total 87 minutes of critical care time excluding the procedures but including discussion with team, updating father for health updates, reviewing labs, CPAP trial. Dictated by Sammy Hay MD with 3M MModal Fluency. Plan discussed with: Patient, Other (father) My Orders My Orders Orders - SAMMY HAY RESIDENT Procedure Category Date Status Time Med/Surg Behavior RENEW 10/31/24 Transmitted Restraint 14:36 Lorazepam 2mg/Ml Inj PHA 10/31/24 In Process (Ativan Inj) 17:45 Chest Portable XY 11/01/24 Resulted 04:00 Albumin 25% (Albutein) PHA 11/01/24 Logged 10:00 Free Water ARACELY 11/01/24 In Process 09:47 Dietary Evaluation Review Recommendations by RD: PPN/TPN Comments: 1) If GI route is preferred, consider Nutrihelp @ 60 mL/hr goal rate as tolerated. Initiate free water flushes @ 200 mL Q6. TF regimen will provide 2160 kcals, 58g Pro, and 1938 mL fuid (including flushes) per 24 hrs. Goal rate will meet ~ 82% daily estimated energy needs and ~ 97% daily estaimted protein needs) 2) If patient remains NPO for more than 7 days, consider TPN to meet at least 75% of estimated needs 3) Advance to hepatic diet when medically feasible, pending CMS EXPERT approval 4) Continue to monitor I&O, labs, fluid retention, and skin integrity Expected Outcomes/Goals: 1) patient to receive nutrition within 7 days 2) labs to improve 3) diet to advance 4) f/u in 3 days Date of Service: Nov 01, 2024 Billing Provider: DHEERAJ MONTANO MD Common Visit Codes: [id number] CARE 30-74 MIN, [id number] CARE-EACH +30MIN SAMMY HAY RESIDENT Nov 01, 2024 09:56 DHEERAJ MONTANO MD Nov 03, 2024 19:30
[2024-11-01 12:43] LABS: Base Excess -6.9 mmol/L (-2.0-3.0)
[2024-11-01] MEDS: ALBUMIN 25% 50 ML IV ONE (14:33)
[2024-11-02] VITALS (82 sets, daily range): BP systolic 76–145; BP diastolic 36–100; PULSE 93–130; RESP 10–22; TEMP 98–99.8; O2SAT 91–100
[2024-11-02 05:28] LABS: Basophils # (auto) 0 10 ^3/uL (0-0.2); Eosinophils # (auto) 0.3 10 ^3/uL (0-0.8); Hemoglobin 8.1 g/dL (13.5-17.5); Mean Corpuscular Volume 93.5 fL (80.0-100.0); Monocytes # (auto) 0.4 10 ^3/uL (0-1.3); Nucleated Red Blood Cells % 0.1 %
[2024-11-02 05:30] LABS: Basophils % (auto) 0.4 % (0.0-2.0); Eosinophils % (auto) 4.6 % (0.0-7.0); Hematocrit 25.6 % (41.0-53.0); Lymphocytes # (auto) 0.8 10 ^3/uL (0.4-5.4); Lymphocytes % (auto) 12.1 % (10.0-50.0); Mean Corpuscular Hemoglobin 29.6 pg (28.0-32.0); Mean Corpuscular Hgb Conc. 31.7 g/dL (32.0-36.0); Monocytes % (auto) 5.6 % (0.0-12.0); Neutrophils # (auto) 5.2 10 ^3/uL (1.6-8.6); Neutrophils % (auto) 77.3 % (37.0-80.0); Platelet Count (auto) 63 10^3/uL (140-450); Red Blood Cells 2.74 10^6/uL (4.5-5.90); Red Cell Distribution Width 29.6 % (11.8-14.3); White Blood Cell 6.7 10^3/uL (4.4-10.8)
--- NOTE | 2024-11-02 05:39 | DVH ---
EXAM: XR Chest, 1 View CLINICAL INDICATION: respiratory failure TECHNIQUE: Frontal view of the chest. COMPARISON: XY CHEST PORTABLE on DOS: 11/01/24, XY CHEST PORTABLE on DOS: 10/31/24, XY CHEST XRAY 1 VIE W on DOS: 10/30/24, XY CHEST PORTABLE on DOS: 10/29/24, XY CHEST PORTABLE on DOS: 10/28/24 FINDINGS: LUNGS AND PLEURAL SPACES: Unremarkable. No consolidation. No pneumothorax. HEART: Unremarkable. No cardiomegaly. MEDIASTINUM: Unremarkable. Normal mediastinal contour. BONES/JOINTS: Unremarkable. No acute fracture. TUBES, LINES AND DEVICES: Right internal jugular central venous catheter tip in the superior vena c bob. Enteric tube tip in the stomach. OTHER FINDINGS: . . IMPRESSION: No acute cardiopulmonary process.
[2024-11-02 05:55] LABS: Anion Gap 7 (5-15); BUN/Creatinine Ratio 31.5 (10.0-20.0); Glucose 81 mg/dL (74-106); Potassium 4.2 mmol/L (3.5-5.1); Total Protein 6.2 g/dL (5.7-8.2)
[2024-11-02 06:19] LABS: Alanine Aminotransferase 60 U/L (7-40); Alkaline Phosphatase 207 U/L (46-116); Aspartate Aminotransferase 102 U/L (13-40); Bilirubin, Total 4.4 mg/dL (0.2-1.0); Blood Urea Nitrogen 28 mg/dL (9-23); Calcium 8.1 mg/dL (8.7-10.4); Carbon Dioxide 19 mmol/L (20-31); Chloride 119 mmol/L (98-107); Sodium 145 mmol/L (136-145)
--- NOTE | 2024-11-02 09:36 | DVHPNRES ---
Progress Note Date Seen: Nov 02, 2024 Resident Creating Document: SAMMY HAY RESIDENT Has the PT tested + for MRSA If YES, has PT been informed?: No Medical Necessity Reason Pt with a Central, PICC or Fol: Yes The following are medically ne: Central Line, Cartwright Catheter Reason for cartwright catheter: Strict I&O Subjective Review of Systems still on levophed. weaning slowly. Objective vital signs Vital Sign Date Time Temp Pulse Resp B/P (MAP) Pulse Ox O2 Delivery O2 Flow Rate FiO2 11/02/24 08:15 106/52 11/02/24 08:00 118 13 99 11/02/24 06:00 Room Air* 0 21 11/02/24 04:00 98.5 98.5 Total Intake and Output 11/01/24 11/01/24 11/02/24 15:00 23:00 07:00 Intake Total 135.68 ml 413.75 ml 760.0 ml Output Total 3250 ml 950 ml Balance 135.68 ml -2836.25 ml -190.0 ml medications Current Medications Medications Dose Ordered Sig/Gretchen Route Start Time Stop Time Status Last Admin Dose Admin Acetaminophen 650 mg Q6HP PRN PO 10/25/24 08:15 10/28/24 20:48 650 MG Nitroglycerin 0.4 mg Q5MINP PRN SL 10/25/24 08:15 Morphine Sulfate 2 mg Q30M PRN IV 10/25/24 08:15 Multivitamins/ Minerals 1 tab DAILY PO 10/25/24 10:00 11/02/24 09:01 1 TAB Pantoprazole Sodium 40 mg DAILY IV 10/25/24 10:00 11/02/24 09:00 40 MG Norepinephrine Bitartrate 250 ml @ 3.75 mls/hr Q24H IV 10/25/24 11:30 11/01/24 23:04 7.5 MLS/HR Rifaximin 550 mg BID PO 10/25/24 22:00 11/02/24 09:01 550 MG Enteral Nutritional Formula 1,000 ml 50ML/HR GT 10/27/24 13:30 10/30/24 21:46 1,000 ML Dexmedetomidine HCl 400 mcg/ Dextrose 100 ml @ 3.76 mls/hr Q24H IV 10/27/24 15:00 10/31/24 22:04 3.76 MLS/HR Thiamine HCl 100 mg DAILY IV 10/29/24 10:00 11/02/24 09:00 100 MG Folic Acid 1 mg DAILY PO 10/29/24 10:00 11/02/24 09:01 1 MG Lactulose 30 ml BID PO 10/29/24 22:00 11/02/24 09:00 30 ML Ceftriaxone Sodium 50 ml @ 100 mls/hr DAILY@09 IV 10/30/24 09:00 11/02/24 09:01 100 MLS/HR Metronidazole 100 ml @ 100 mls/hr Q8HR IV 10/29/24 22:00 11/02/24 05:58 100 MLS/HR Lorazepam 0.5 mg Q8HP PRN IV 10/31/24 17:45 10/31/24 20:51 0.5 MG Examination GENERAL:Abnormal extubated, HEENT:Normal (ET tube in place), NECK:Normal (Central line in place), LUNGS:Normal (Bilateral equal air entry, thinking with the ventilation, basal rales bilateral), CVS:Normal, ABDOMEN:Abnormal (Fluid thrill present, bilateral flank full, shifting dullness, inverted umblicus since prior time, much improved than last week), MSK:Normal, SKIN:Abnormal (visible icterus), NEURO:Abnormal (Sedated and ventilated, he is awake and more alert ), :Normal (On Cartwright's catheter) laboratory and microbiology Laboratory Tests 11/02/24 04:44 Test 11/02/24 04:44 Range/Units Serum Glucose 81 74-106 mg/dL Microbiology Date/Time Source Procedure Growth Status 10/29/24 17:40 Blood Blood Culture - Preliminary NO GROWTH AFTER 72 HOURS OF INCUBATION. Resulted 10/26/24 17:50 Ascities Fluid Gram Stain - Final Complete 10/26/24 17:50 Body Fluid Culture - Final Staphylococcus epidermidis Complete 10/26/24 09:20 Nose MRSA Screen - Final Complete 10/25/24 09:20 Voided Urine Urine Culture - Final Complete 10/25/24 08:18 Sputum Gram Stain - Final Complete 10/25/24 08:18 Sputum Respiratory Culture - Final Complete Labs and/or images reviewed: Labs reviewed by me, Image(s) reviewed by me Problem List/Assessment/Plan Problem List/Assessment/Plan ICU Course: 29-year-old gentleman with past medical history significant for hypertension, chronic alcoholism, malnutrition, liver cirrhosis with decompensated liver failure previously presented to the ED with abdominal pain, was found to have septic shock, toxic/metabolic encephalopathy and was unable to protect airways and was intubated and sedated and was upgraded to the ICU/ANNIE use status, limited history but as per family patient was still drinking at least 3 weeks prior to this incident. Patient remains intubated and off of sedation but sleepy failed CPAP today. Frequent past hospitalization with alcohol abuse and liver cirrhosis related complications sedation off s/p Hospitalization day: 13 Medical condition being treated in hospital: # toxic/metabolic hepatic encephalopathy improved # chronic alcohol abuse: Despite having progressed to liver cirrhosis in her early 30s patient continues to drink, needs further evaluation and supportive care and 12 step alcohol rehabilitation program to be recommended at recovery of the acute stage. # hyperammonemia, improved: b.i.d. lactulose, with rifaximin 550 b.i.d. with target bowel movement of 2-3 times per day. # Bundle of delirium precaution. # Alcohol abuse counseling done at bedside. # hypotension improved, was Off of Levophed. as needed Levophed to keep MAP >65 # history of hypertension held all antihypertensives, target blood pressure for this gentleman will be 140/90 or below as per aha/ACC guidelines. # acute respiratory failure: AC/VC/VT 450, peep of 5, FiO2 of 30%, minimal when sitting saturating well of SpO2 near 100% failed CPAP trial this AM after 2 hours. RR fell to 6, RBSS 13 and NIF to 17 likely due to altered level of consciousness. Ruled out secondary causes of hypothyroidism, central, musculoskeletal or neurological cases of bradypnea. Ongoing CPAP trial, cxr unremarkable, no further bradypnea. NIF -20. tolerating cpap close to extubation. NPO and aspiration precaution. # possible aspiration pneumonia: Under level of consciousness might be contributory to respiratory failure, broad-spectrum antibiotic to continue. # liver cirrhosis due to alcohol abuse, Maddrey score <32, does not need any IV steroid, CMP trending to be done. # portal hypertension: Likely due to cirrhosis. We will hold aldactone for now. # ascites: 1.4 L approximately fluid aspirated+ 2.1 L = 3.5 L both for therapeutic and diagnostic purpose, to rule out spontaneous bacterial peritonitis, sample, culture, lab under work. Further therapeutic paracentesis in this hospitalization with IR. # umbilical hernia: Stable, on incarcerated, previously known. No intervention needed at this point. # NG tube in place, nutrition to continue with tube feeding as tolerated. # cholelithiasis without cholecystitis # hyperbilirubinemia, improving. CMP follow up # transaminitis improved # acute cholecystitis not excluded, further clinical evaluation and once patient is more stable might consider HIDA scan. # on Cartwright's catheter, close input output to check. # Gram-negative bacteremia: E coli, pansensitive septic shock and ascites related complications, mycoplasma anaerobic > IV cefepime and vancomycin change to ceftriaxone and metronidazole and follow Gram-negative bacteremia, repeat blood culture, positive staph epidermides likely contamination no need of change in abx. # pancytopenia secondary to liver cirrhosis and possible hepatosplenomegaly # thrombocytopenia: Close follow up, no active bleeding noted. # anemia Transfusion threshold 7, H&H stable. # hyponatremia: Corrected for hypoalbuminemia, likely due to cirrhosis, close follow up of CMP daily. # ANDRÉS likely due to vasomotor nephropathy, resolved, check intake output and avoid nephrotoxics. # moderate protein energy malnutrition likely due to underlying alcoholism and poor oral intake, dietitian consult when appropriate. The plan was discussed with the ICU attending Dr. Abernathy. The patient care consists of total 87 minutes of critical care time excluding the procedures but including discussion with team, updating father for health updates, reviewing labs. Remains in [facility] as he is on Levophed, when off downgrade to tele. Dictated by Sammy Hay MD with 3M MModal Fluency. Plan discussed with: Patient, Other (father, primary team, RN) My Orders My Orders Orders - SAMMY HAY RESIDENT Procedure Category Date Status Time Cpap Trial For Am ORDERS 11/01/24 Transmitted 11:35 Free Water ARACELY 11/01/24 In Process 13:21 Chest Portable XY 11/02/24 Resulted 04:00 * Swallow Request ST 11/02/24 Transmitted 08:00 Pt Request For Service PT 11/02/24 Logged 08:00 Transfer Orders XFER 11/02/24 Transmitted 09:02 Communication Order ORDERS 11/02/24 Transmitted 09:02 Incentive Spirometry ORDERS 11/02/24 Transmitted Q 1hr 09:26 Dietary Evaluation Review Recommendations by RD: PPN/TPN Comments: 1) If GI route is preferred, consider Nutrihelp @ 60 mL/hr goal rate as tolerated. Initiate free water flushes @ 200 mL Q6. TF regimen will provide 2160 kcals, 58g Pro, and 1938 mL fuid (including flushes) per 24 hrs. Goal rate will meet ~ 82% daily estimated energy needs and ~ 97% daily estaimted protein needs) 2) If patient remains NPO for more than 7 days, consider TPN to meet at least 75% of estimated needs 3) Advance to hepatic diet when medically feasible, pending [facility] approval 4) Continue to monitor I&O, labs, fluid retention, and skin integrity Expected Outcomes/Goals: 1) patient to receive nutrition within 7 days 2) labs to improve 3) diet to advance 4) f/u in 3 days Labs/Diagnostic Data Laboratory Tests Test 11/02/24 04:44 11/01/24 12:23 Range/Units White Blood Count 6.7 4.4-10.8 10^3/uL Red Blood Count 2.74 L 4.5-5.90 10^6/uL Hemoglobin 8.1 L 13.5-17.5 g/dL Hematocrit 25.6 L 41.0-53.0 % Mean Corpuscular Volume 93.5 80.0-100.0 fL Mean Corpuscular Hemoglobin 29.6 28.0-32.0 pg Mean Corpuscular Hemoglobin Concent 31.7 L 32.0-36.0 g/dL Red Cell Distribution Width 29.6 H 11.8-14.3 % Platelet Count 63 L 140-450 10^3/uL Mean Platelet Volume 8.2 6.9-10.8 fL Neutrophils (%) (Auto) 77.3 37.0-80.0 % Lymphocytes (%) (Auto) 12.1 10.0-50.0 % Monocytes (%) (Auto) 5.6 0.0-12.0 % Eosinophils (%) (Auto) 4.6 0.0-7.0 % Basophils (%) (Auto) 0.4 0.0-2.0 % Neutrophils # (Auto) 5.2 1.6-8.6 10 ^3/uL Lymphocytes # (Auto) 0.8 0.4-5.4 10 ^3/uL Monocytes # (Auto) 0.4 0-1.3 10 ^3/uL Eosinophils # (Auto) 0.3 0-0.8 10 ^3/uL Basophils # (Auto) 0 0-0.2 10 ^3/uL Nucleated Red Blood Cells 0.1 % Sodium Level 145 136-145 mmol/L Potassium Level 4.2 3.5-5.1 mmol/L Chloride Level 119 H 98-107 mmol/L Carbon Dioxide Level 19 L 20-31 mmol/L Anion Gap 7 5-15 Blood Urea Nitrogen 28 H 9-23 mg/dL Creatinine 0.89 0.700-1.30 mg/dL Glomerular Filtration Rate Calc 118 >90 mL/min BUN/Creatinine Ratio 31.5 H 10.0-20.0 Serum Glucose 81 74-106 mg/dL Calcium Level 8.1 L 8.7-10.4 mg/dL Total Bilirubin 4.4 H 0.2-1.0 mg/dL Aspartate Amino Transferase (AST) 102 H 13-40 U/L Alanine Aminotransferase (ALT) 60 H 7-40 U/L Alkaline Phosphatase 207 H 46-116 U/L Total Protein 6.2 5.7-8.2 g/dL Albumin 2.0 L 3.2-4.8 g/dL Blood Gas Specimen Type Arterial Blood Gas Sample Site Right radial Blood Gas Patient Temperature 37.0 Arterial Blood Date Drawn [id number] Arterial Blood pH 7.373 7.350-7.450 Arterial Blood Partial Pressure CO2 30.9 L 35.0-48.0 mmHg Arterial Blood Partial Pressure O2 131.0 H 83.0-108.0 mmHg Arterial Blood HCO3 17.6 L 21.0-28.0 mmol/L Arterial Blood Oxygen Saturation 98.3 H 94.0-98.0 % Arterial Blood Base Excess -6.9 L -2.0-3.0 mmol/L Arterial Blood Oxyhemoglobin 97.1 94.0-98.0 % Arterial Blood Carboxyhemoglobin 0.8 0.5-1.5 % Arterial Blood Methemoglobin 0.4 0.0-1.5 % John Test Modified Blood Gas Total Hemoglobin 7.90 L 13.5-17.5 g/dL Blood Gas Modality Vent - cpap Blood Gas Spontaneous Rate 14 FiO2 % 30.0 Blood Gas Pressure Support 8 Blood Gas PEEP or CPAP 5.0 Microbiology Date/Time Source Procedure Growth Status 10/29/24 17:40 Blood Blood Culture - Preliminary NO GROWTH AFTER 72 HOURS OF INCUBATION. Resulted 10/26/24 17:50 Ascities Fluid Gram Stain - Final Complete 10/26/24 17:50 Body Fluid Culture - Final Staphylococcus epidermidis Complete 10/26/24 09:20 Nose MRSA Screen - Final Complete 10/25/24 09:20 Voided Urine Urine Culture - Final Complete 10/25/24 08:18 Sputum Gram Stain - Final Complete 10/25/24 08:18 Sputum Respiratory Culture - Final Complete SAMMY HAY RESIDENT Nov 02, 2024 09:36
[2024-11-03] VITALS (43 sets, daily range): BP systolic 87–119; BP diastolic 47–71; PULSE 97–127; RESP 9–20; TEMP 98–99.2; O2SAT 81–100
[2024-11-03 05:42] LABS: Basophils # (auto) 0 10 ^3/uL (0-0.2); Eosinophils # (auto) 0.3 10 ^3/uL (0-0.8); Mean Corpuscular Volume 93.9 fL (80.0-100.0)
[2024-11-03 05:46] LABS: Basophils % (auto) 0.5 % (0.0-2.0); Hematocrit 22.2 % (41.0-53.0); Hemoglobin 7.4 g/dL (13.5-17.5); Lymphocytes # (auto) 0.7 10 ^3/uL (0.4-5.4); Lymphocytes % (auto) 13.7 % (10.0-50.0); Mean Corpuscular Hemoglobin 31.1 pg (28.0-32.0); Mean Corpuscular Hgb Conc. 33.1 g/dL (32.0-36.0); Monocytes # (auto) 0.5 10 ^3/uL (0-1.3); Monocytes % (auto) 8.8 % (0.0-12.0); Neutrophils # (auto) 3.7 10 ^3/uL (1.6-8.6); Nucleated Red Blood Cells % 0.1 %; Platelet Count (auto) 48 10^3/uL (140-450); Red Blood Cells 2.37 10^6/uL (4.5-5.90); White Blood Cell 5.2 10^3/uL (4.4-10.8)
[2024-11-03 05:49] LABS: Red Cell Distribution Width 29.8 % (11.8-14.3)
[2024-11-03 05:56] LABS: Anion Gap 6 (5-15); BUN/Creatinine Ratio 24.2 (10.0-20.0); Carbon Dioxide 20 mmol/L (20-31); Glucose 85 mg/dL (74-106); Potassium 4.4 mmol/L (3.5-5.1); Sodium 142 mmol/L (136-145)
[2024-11-03 06:01] LABS: Alanine Aminotransferase 58 U/L (7-40); Albumin 1.8 g/dL (3.2-4.8); Alkaline Phosphatase 190 U/L (46-116); Aspartate Aminotransferase 96 U/L (13-40); Bilirubin, Total 3.5 mg/dL (0.2-1.0); Blood Urea Nitrogen 23 mg/dL (9-23); Calcium 7.6 mg/dL (8.7-10.4); Chloride 116 mmol/L (98-107); Total Protein 5.7 g/dL (5.7-8.2)
[2024-11-03 06:54] LABS: Anisocytosis Moderate
[2024-11-03 06:55] LABS: Hypochromia Slight; Platelet Estimate Decreased; Tear Drop Cells FEW
--- NOTE | 2024-11-03 13:07 | DVHPN2 ---
Subjective The patient is seen and examined at bedside. The patient feel better. Off vasopressor. Reviewed: Care Plan Changes from previous H/P or p: No Changes Gastrointestinal: Abdominal Pain Objective Vitals Vital Signs Date Time Temp Pulse Resp B/P (MAP) Pulse Ox O2 Delivery O2 Flow Rate FiO2 11/03/24 12:45 111 13 99 11/03/24 12:00 Room Air* 0 30 21 11/03/24 08:00 99.2 99.2 Intake/Output Intake and Output 11/03/24 07:00 Intake Total 1456.25 ml Output Total 900 ml Balance 556.25 ml Intake Oral 1120 ml IV Total 336.25 ml Tube Feeding 0 ml Output Urine Total 600 ml Stool Total 300 ml # Bowel Movements 2 General Appearance: Alert, Oriented X3, Cooperative, No acute distress HEENT: Atraumatic, PERRLA, EOMI, Mucous membr. moist/pink Neck: Supple Lungs: Clear to auscultation, Normal air movement Cardiovascular: Regular rate, Normal S1, Normal S2, No murmurs, Gallops, Rubs Abdomen: Normal bowel sounds, Soft, No tenderness Neuro: Cranial nerves 3-12 NL Psych/Mental Status: Mental status NL Medications Current Medications Medications Dose Ordered Sig/Gretchen Route Start Time Stop Time Status Last Admin Dose Admin Acetaminophen 650 mg Q6HP PRN PO 10/25/24 08:15 11/02/24 20:19 650 MG Nitroglycerin 0.4 mg Q5MINP PRN SL 10/25/24 08:15 Morphine Sulfate 2 mg Q30M PRN IV 10/25/24 08:15 Multivitamins/ Minerals 1 tab DAILY PO 10/25/24 10:00 11/03/24 08:36 1 TAB Pantoprazole Sodium 40 mg DAILY IV 10/25/24 10:00 11/03/24 08:36 40 MG Norepinephrine Bitartrate 250 ml @ 3.75 mls/hr Q24H IV 10/25/24 11:30 11/01/24 23:04 7.5 MLS/HR Rifaximin 550 mg BID PO 10/25/24 22:00 11/03/24 08:36 550 MG Enteral Nutritional Formula 1,000 ml 50ML/HR GT 10/27/24 13:30 10/30/24 21:46 1,000 ML Dexmedetomidine HCl 400 mcg/ Dextrose 100 ml @ 3.76 mls/hr Q24H IV 10/27/24 15:00 10/31/24 22:04 3.76 MLS/HR Thiamine HCl 100 mg DAILY IV 10/29/24 10:00 11/03/24 08:36 100 MG Folic Acid 1 mg DAILY PO 10/29/24 10:00 11/03/24 08:36 1 MG Lactulose 30 ml BID PO 10/29/24 22:00 11/03/24 08:36 30 ML Ceftriaxone Sodium 50 ml @ 100 mls/hr DAILY@09 IV 10/30/24 09:00 11/03/24 08:24 100 MLS/HR Metronidazole 100 ml @ 100 mls/hr Q8HR IV 10/29/24 22:00 11/03/24 05:42 100 MLS/HR Lorazepam 0.5 mg Q8HP PRN IV 10/31/24 17:45 11/02/24 21:08 0.5 MG Laboratory Results Laboratory Tests 11/03/24 04:50 Chemistry Test 11/03/24 04:50 Albumin 1.8 g/dL (3.2-4.8) L Calcium Level 7.6 mg/dL (8.7-10.4) L Total Protein 5.7 g/dL (5.7-8.2) LFT Test 11/03/24 04:50 Alanine Aminotransferase (ALT) 58 U/L (7-40) H Alkaline Phosphatase 190 U/L (46-116) H Aspartate Amino Transferase (AST) 96 U/L (13-40) H Total Bilirubin 3.5 mg/dL (0.2-1.0) H Urinalysis Test 10/25/24 09:20 Urine Color Dark-yellow (Yellow) Urine Clarity Turbid (Clear) H Urine pH 6.0 (5.0-9.0) Urine Specific Ruffin 1.025 (1.001-1.035) Urine Protein Trace (Negative) H Urine Ketones Negative (Negative) Urine Blood Negative /uL (Negative) Urine Nitrite Negative (Negative) Urine Bilirubin 1+ (Negative) Urine Urobilinogen 4 mg/dL (Negative) H Urine Leukocyte Esterase Negative /uL (Negative) Urine RBC <1 /hpf (0 - 3) Urine Microscopic WBC 2 /HPF (0-3) Urine Squamous Epithelial Cells Few /hpf (<5) Urine Bacteria None seen /hpf (None Seen) Urine Hyaline Casts Many /lpf (0 - 2) Urine Mucus Few (None Seen) Urine Glucose Normal mg/dL (Normal) Microbiology Microbiology Date/Time Source Procedure Growth Status 10/29/24 17:40 Blood Blood Culture - Preliminary NO GROWTH AFTER 72 HOURS OF INCUBATION. Resulted 10/26/24 17:50 Ascities Fluid Gram Stain - Final Complete 10/26/24 17:50 Body Fluid Culture - Final Staphylococcus epidermidis Complete 10/26/24 09:20 Nose MRSA Screen - Final Complete 10/25/24 09:20 Voided Urine Urine Culture - Final Complete 10/25/24 08:18 Sputum Gram Stain - Final Complete 10/25/24 08:18 Sputum Respiratory Culture - Final Complete Labs and/or images reviewed: Labs reviewed by me Assessment/Plan Assessment/Plan ICU Course: 29-year-old gentleman with past medical history significant for hypertension, chronic alcoholism, malnutrition, liver cirrhosis with decompensated liver failure previously presented to the ED with abdominal pain, was found to have septic shock, toxic/metabolic encephalopathy and was unable to protect airways and was intubated and sedated and was upgraded to the ICU/ANNIE use status, limited history but as per family patient was still drinking at least 3 weeks prior to this incident. Patient remains intubated and off of sedation but sleepy failed CPAP today. Frequent past hospitalization with alcohol abuse and liver cirrhosis related complications. Hospitalization day: 13 A. Neurology: # sedation for mechanical ventilation synchronization off since TuesdayOctober 27/2025 likely slow excretion of medications # toxic/metabolic hepatic encephalopathy: Presented with altered level of consciousness likely due to the above, multifactorial possibly due to hyperammonemia, sepsis, bacteremia, infection, electrolyte disturbances. # chronic alcohol abuse: Despite having progressed to liver cirrhosis in her early 30s patient continues to drink, needs further evaluation and supportive care and 12 step alcohol rehabilitation program to be recommended at recovery of the acute stage. # hyperammonemia, improved: b.i.d. lactulose, with rifaximin 550 b.i.d. with target bowel movement of 2-3 times per day. # anxiety and agitation: as needed Precedex while on intubation but patient is overly sensitive q8 hours of iv Ativan 0.5 mg if needed increase the frequency. AVOID STRICTLY: versed, propofol and fentanyl. as needed restrictions. will try to avoid. # Bundle of delirium precaution. B. Cardiology: # hypotension improved, was Off of Levophed. as needed Levophed to keep MAP >65 # history of hypertension held all antihypertensives, target blood pressure for this gentleman will be 140/90 or below as per aha/ACC guidelines. C. Respiratory: # acute respiratory failure: AC/VC/VT 450, peep of 5, FiO2 of 30%, minimal when sitting saturating well of SpO2 near 100% failed CPAP trial this AM after 2 hours. RR fell to 6, RBSS 13 and NIF to 17 likely due to altered level of consciousness. Ruled out secondary causes of hypothyroidism, central, musculoskeletal or neurological cases of bradypnea. Ongoing CPAP trial, cxr unremarkable, no further bradypnea. NIF -20. tolerating cpap close to extubation. NPO and aspiration precaution. # possible aspiration pneumonia: Under level of consciousness might be contributory to respiratory failure, broad-spectrum antibiotic to continue. D. Gastrointestinal: # liver cirrhosis due to alcohol abuse, Maddrey score <32, does not need any IV steroid, CMP trending to be done. # portal hypertension: Likely due to cirrhosis. We will hold aldactone for now. # ascites: 1.4 L approximately fluid aspirated+ 2.1 L = 3.5 L both for therapeutic and diagnostic purpose, to rule out spontaneous bacterial peritonitis, sample, culture, lab under work. Further therapeutic paracentesis in this hospitalization with IR. # umbilical hernia: Stable, on incarcerated, previously known. No intervention needed at this point. # NG tube in place, nutrition to continue with tube feeding as tolerated. # cholelithiasis without cholecystitis # hyperbilirubinemia, improving. CMP follow up # transaminitis improved # acute cholecystitis not excluded, further clinical evaluation and once patient is more stable might consider HIDA scan. E. Genitourinary: # on Pool's catheter, close input output to check. F. Infectious Disease: # Gram-negative bacteremia: E coli, pansensitive septic shock and ascites related complications, mycoplasma anaerobic > IV cefepime and vancomycin change to ceftriaxone and metronidazole and follow Gram-negative bacteremia, repeat blood culture, positive staph epidermides likely contamination no need of change in abx. G. Hematology & Oncology: # pancytopenia secondary to liver cirrhosis and possible hepatosplenomegaly # thrombocytopenia: Close follow up, no active bleeding noted. # anemia: Transfusion threshold 7, H&H stable. H. Nephrology: # hyponatremia: Corrected for hypoalbuminemia, likely due to cirrhosis, close follow up of CMP daily. # ANDRÉS likely due to vasomotor nephropathy, resolved, check intake output and avoid nephrotoxics. I. Endocrine: # moderate protein energy malnutrition likely due to underlying alcoholism and poor oral intake, dietitian consult when appropriate. J. MSK: # poor muscle mass, likely wound benefitted from physical therapy after acute care. . K. Prophylaxis: PPI: IV PPI DVT: Avoid heparin ambulated products, due to thrombocytopenia. SCDs L. Lines & Drains (with insertion date): IV 10/25 Central 10/25 Arterial line not needed M. Drips off of all. Started as needed precedex. N. Disposition: Downgrade to telemetry today Plan discussed with: Patient Date of Service: Nov 03, 2024 Billing Provider: HOANG PAREDES MD Common Visit Codes: 19909-[id number] INP/OBS CARE(HIGH) HOANG PAREDES MD Nov 03, 2024 13:07
--- NOTE | 2024-11-03 14:38 | DVHPN2 ---
Progress Note - Dictate Date Seen: Nov 03, 2024 Has the PT tested + for MRSA If YES, has PT been informed?: No Medical Necessity Reason Pt with a Central, PICC or Fol: Yes The following are medically ne: Central Line, Cartwright Catheter Reason for cartwright catheter: Strict I&O Subjective Patient was extubated two days ago Patient has passed swallow eval and tolerating a regular diet Patient is ambulating and undergoing physical therapy Patient has been downgraded to the floor to tele Hemoglobin stable at 7.4, liver enzymes are trending down Initial blood culture grew Gram-negative rods E coli, repeat cultures are negative Ascitic fluid was positive for coag-negative staph vital signs Vital Sign Date Time Temp Pulse Resp B/P (MAP) Pulse Ox O2 Delivery O2 Flow Rate FiO2 11/03/24 12:45 111 13 99 11/03/24 12:00 Room Air* 0 30 21 11/03/24 08:00 99.2 99.2 Total Intake and Output 11/02/24 11/02/24 11/03/24 15:00 23:00 07:00 Intake Total 113.75 ml 842.5 ml 500 ml Output Total 550 ml 350 ml Balance 113.75 ml 292.5 ml 150 ml medications Current Medications Medications Dose Ordered Sig/Gretchen Route Start Time Stop Time Status Last Admin Dose Admin Acetaminophen 650 mg Q6HP PRN PO 10/25/24 08:15 11/02/24 20:19 650 MG Nitroglycerin 0.4 mg Q5MINP PRN SL 10/25/24 08:15 Morphine Sulfate 2 mg Q30M PRN IV 10/25/24 08:15 Multivitamins/ Minerals 1 tab DAILY PO 10/25/24 10:00 11/03/24 08:36 1 TAB Pantoprazole Sodium 40 mg DAILY IV 10/25/24 10:00 11/03/24 08:36 40 MG Norepinephrine Bitartrate 250 ml @ 3.75 mls/hr Q24H IV 10/25/24 11:30 11/01/24 23:04 7.5 MLS/HR Rifaximin 550 mg BID PO 10/25/24 22:00 11/03/24 08:36 550 MG Enteral Nutritional Formula 1,000 ml 50ML/HR GT 10/27/24 13:30 10/30/24 21:46 1,000 ML Dexmedetomidine HCl 400 mcg/ Dextrose 100 ml @ 3.76 mls/hr Q24H IV 10/27/24 15:00 10/31/24 22:04 3.76 MLS/HR Thiamine HCl 100 mg DAILY IV 10/29/24 10:00 11/03/24 08:36 100 MG Folic Acid 1 mg DAILY PO 10/29/24 10:00 11/03/24 08:36 1 MG Lactulose 30 ml BID PO 10/29/24 22:00 11/03/24 08:36 30 ML Ceftriaxone Sodium 50 ml @ 100 mls/hr DAILY@09 IV 10/30/24 09:00 11/03/24 08:24 100 MLS/HR Metronidazole 100 ml @ 100 mls/hr Q8HR IV 10/29/24 22:00 11/03/24 13:09 100 MLS/HR Lorazepam 0.5 mg Q8HP PRN IV 10/31/24 17:45 11/02/24 21:08 0.5 MG objective Examination: GENERAL:Normal, HEENT:Abnormal (jaundice), LUNGS:Normal, CVS:Normal, ABDOMEN:Abnormal (ascitis, umbilical hgernia, abdomen soft laboratory and microbiology Laboratory Tests 11/03/24 04:50 Test 11/03/24 04:50 Range/Units Serum Glucose 85 74-106 mg/dL Problems(with codes): (1) E. coli septicemia (2) Generalized weakness (3) Ascites (4) Elevated liver enzymes (5) Gallstones (6) Splenomegaly (7) Pancytopenia (8) Anemia (9) Alcohol abuse (10) Liver cirrhosis (11) Hepatic encephalopathy Prognosis Plan Continue supportive care Continue current medical management Continue physical therapy Monitor labs Dietary Evaluation Review Recommendations by RD: PPN/TPN Comments: 1) If GI route is preferred, consider Nutrihelp @ 60 mL/hr goal rate as tolerated. Initiate free water flushes @ 200 mL Q6. TF regimen will provide 2160 kcals, 58g Pro, and 1938 mL fuid (including flushes) per 24 hrs. Goal rate will meet ~ 82% daily estimated energy needs and ~ 97% daily estaimted protein needs) 2) If patient remains NPO for more than 7 days, consider TPN to meet at least 75% of estimated needs 3) Advance to hepatic diet when medically feasible, pending CAN LINE OPERATOR approval 4) Continue to monitor I&O, labs, fluid retention, and skin integrity Expected Outcomes/Goals: 1) patient to receive nutrition within 7 days 2) labs to improve 3) diet to advance 4) f/u in 3 days Plan discussed with: Other (ANNIE Nurse) KATELYN JOYCE MD Nov 03, 2024 14:38
--- NOTE | 2024-11-03 21:22 | DVHPN2 ---
Progress Note - Dictate Date Seen: Nov 03, 2024 Has the PT tested + for MRSA If YES, has PT been informed?: No Medical Necessity Reason Pt with a Central, PICC or Fol: Yes The following are medically ne: Central Line, Cartwright Catheter Reason for cartwright catheter: Strict I&O Subjective Patient seen and examined at bedside. Breathing comfortably on room air. Overnight events reviewed. vital signs Vital Sign Date Time Temp Pulse Resp B/P (MAP) Pulse Ox O2 Delivery O2 Flow Rate FiO2 11/03/24 17:00 98.1 107 20 103/64 (77) 100 98.1 11/03/24 16:00 Room Air* 0 30 21 Total Intake and Output 11/02/24 11/02/24 11/03/24 15:00 23:00 07:00 Intake Total 113.75 ml 842.5 ml 500 ml Output Total 550 ml 350 ml Balance 113.75 ml 292.5 ml 150 ml medications Current Medications Medications Dose Ordered Sig/Gretchen Route Start Time Stop Time Status Last Admin Dose Admin Acetaminophen 650 mg Q6HP PRN PO 10/25/24 08:15 11/02/24 20:19 650 MG Nitroglycerin 0.4 mg Q5MINP PRN SL 10/25/24 08:15 Morphine Sulfate 2 mg Q30M PRN IV 10/25/24 08:15 Multivitamins/ Minerals 1 tab DAILY PO 10/25/24 10:00 11/03/24 08:36 1 TAB Pantoprazole Sodium 40 mg DAILY IV 10/25/24 10:00 11/03/24 08:36 40 MG Norepinephrine Bitartrate 250 ml @ 3.75 mls/hr Q24H IV 10/25/24 11:30 11/01/24 23:04 7.5 MLS/HR Rifaximin 550 mg BID PO 10/25/24 22:00 11/03/24 08:36 550 MG Enteral Nutritional Formula 1,000 ml 50ML/HR GT 10/27/24 13:30 10/30/24 21:46 1,000 ML Dexmedetomidine HCl 400 mcg/ Dextrose 100 ml @ 3.76 mls/hr Q24H IV 10/27/24 15:00 10/31/24 22:04 3.76 MLS/HR Thiamine HCl 100 mg DAILY IV 10/29/24 10:00 11/03/24 08:36 100 MG Folic Acid 1 mg DAILY PO 10/29/24 10:00 11/03/24 08:36 1 MG Lactulose 30 ml BID PO 10/29/24 22:00 11/03/24 08:36 30 ML Ceftriaxone Sodium 50 ml @ 100 mls/hr DAILY@09 IV 10/30/24 09:00 11/03/24 08:24 100 MLS/HR Metronidazole 100 ml @ 100 mls/hr Q8HR IV 10/29/24 22:00 11/03/24 13:09 100 MLS/HR Lorazepam 0.5 mg Q8HP PRN IV 10/31/24 17:45 11/02/24 21:08 0.5 MG objective Gen.: Patient lying in bed in no apparent distress. Breathing on room air. Head: Normocephalic, atraumatic. Eyes: EOMI/PERRLA. Ears: Normal hearing. Normal anatomy. Neck/trachea: Trachea midline, supple. Nose: Normal external anatomy. Mouth: Moist mucous membranes. Chest: Decreased air entry bilaterally. No wheezing or rhonchi. Cardiovascular: Positive S1, positive S2. Regular rate and rhythm. Abdomen: Positive bowel sounds in all 4 quadrants. Soft, non-tender, non- distended. : Deferred. Rectal: Deferred. Skin: Warm, dry. Intact. Extremities: 2+ radial pulses bilaterally. No lower extremity edema. Neuro: Awake, alert, oriented x3. No gross motor or sensory deficits. Cranial nerves II through XII intact. Gait not assessed. laboratory and microbiology Laboratory Tests 11/03/24 04:50 Test 11/03/24 04:50 Range/Units Serum Glucose 85 74-106 mg/dL Assessment/Plan Impression: Acute hypoxic respiratory failure Intractable abdominal pain Lactic acidosis Transaminitis Pancytopenia History of liver cirrhosis Ascites Splenomegaly Cholelithiasis Events: Patient is s/p extubation on 11/01/24 Currently on room air Supplemental oxygen PRN. Off pressors since 11/02/24, hemodynamically stable. Continue antibiotics Incentive spirometry Physical therapy Patient is stable for downgrade from the pulmonary standpoint. CXR on 11/02/24 shows no acute cardiopulmonary disease S/p paracentesis on 10/28/24 - 2.1 liters of ascitic fluid were drained. See separate procedure note for details. Labs and imaging reviewed. Rest of plan as noted below. Plan: s/p extubation on 11/01/24 On room air Supplemental oxygen PRN Titrate to keep sats above 92% Pressors if necessary for hemodynamic support Titrate to keep mean arterial pressure greater than 65 mmHg. Continue lactulose Continue antibiotics. F/u cultures. Blood cultures showed no growth after 5 days. Ascitic fluid cultures grew Staph epidermidis Monitor renal function Monitor electrolytes. Supplement as necessary. Monitor ins and outs. GI prophylaxis. DVT prophylaxis. Prognosis: Guarded given patient's multiple co-morbidities. Condition: Critical Rest of plan per hospitalist and other consultants. A total of 35 minutes of critical care time was spent reviewing the patient record, examining the patient, making a diagnostic and therapeutic plan, discussing this plan with the medical personnel, following up on diagnostic studies and following the patient for clinical stability excluding any and all procedures. At least 50% of this time was spent in direct, [id number] contact. Thank you Dr. Nova, for allowing me to participate in this patient's care. Further recommendations will depend on the patient's clinical course. Please do not hesitate to contact me if you have any questions or concerns. This medical document was created using an electronic medical record system with [employer] computerized dictation system. Although these documentations are being carefully reviewed, there may still be some phonetic and typographical changes. The errors are purely typographical, due to imperfection on the software program, and do not reflect any compromise in the patient's medical care. Dietary Evaluation Review Recommendations by RD: PPN/TPN Comments: 1) If GI route is preferred, consider Nutrihelp @ 60 mL/hr goal rate as tolerated. Initiate free water flushes @ 200 mL Q6. TF regimen will provide 2160 kcals, 58g Pro, and 1938 mL fuid (including flushes) per 24 hrs. Goal rate will meet ~ 82% daily estimated energy needs and ~ 97% daily estaimted protein needs) 2) If patient remains NPO for more than 7 days, consider TPN to meet at least 75% of estimated needs 3) Advance to hepatic diet when medically feasible, pending TACTICAL/MOBILE WATCH OFFICER approval 4) Continue to monitor I&O, labs, fluid retention, and skin integrity Expected Outcomes/Goals: 1) patient to receive nutrition within 7 days 2) labs to improve 3) diet to advance 4) f/u in 3 days Plan discussed with: Other (BRENT Conway) Critical Care Time(min): 35 EILEEN LORENZO MD Nov 03, 2024 21:22
[2024-11-03] MEDS: MORPHINE SULFATE INJ 2 MG/ml SYRG IV PRN (23:14)
[2024-11-04] VITALS (8 sets, daily range): BP systolic 96–113; BP diastolic 59–71; PULSE 96–112; RESP 13–20; TEMP 97.5–99.1; O2SAT 94–99
[2024-11-04] MEDS: MORPHINE SULFATE INJ 2 MG/ml SYRG IV PRN (12:21)
--- NOTE | 2024-11-04 12:59 | DVHPN2 ---
Subjective The patient is seen and examined at bedside. Doing better today. Reviewed: Care Plan Changes from previous H/P or p: No Changes Gastrointestinal: Abdominal Pain Objective Vitals Vital Signs Date Time Temp Pulse Resp B/P (MAP) Pulse Ox O2 Delivery O2 Flow Rate FiO2 11/04/24 12:21 100 18 102/63 11/04/24 09:00 97.5 98 97.5 11/04/24 08:00 Room Air* 0 21 Intake/Output Intake and Output 11/04/24 07:00 Intake Total 1000 ml Output Total 300 ml Balance 700 ml Intake Oral 650 ml IV Total 350 ml Output Urine Total 300 ml General Appearance: Alert, Oriented X3, Cooperative, No acute distress HEENT: Atraumatic, PERRLA, EOMI, Mucous membr. moist/pink Neck: Supple Lungs: Clear to auscultation, Normal air movement Cardiovascular: Regular rate, Normal S1, Normal S2, No murmurs, Gallops, Rubs Abdomen: Normal bowel sounds, Soft, No tenderness Neuro: Cranial nerves 3-12 NL Psych/Mental Status: Mental status NL Medications Current Medications Medications Dose Ordered Sig/Gretchen Route Start Time Stop Time Status Last Admin Dose Admin Acetaminophen 650 mg Q6HP PRN PO 10/25/24 08:15 11/02/24 20:19 650 MG Nitroglycerin 0.4 mg Q5MINP PRN SL 10/25/24 08:15 Morphine Sulfate 2 mg Q30M PRN IV 10/25/24 08:15 Multivitamins/ Minerals 1 tab DAILY PO 10/25/24 10:00 11/04/24 08:55 1 TAB Pantoprazole Sodium 40 mg DAILY IV 10/25/24 10:00 11/04/24 08:55 40 MG Rifaximin 550 mg BID PO 10/25/24 22:00 11/04/24 08:59 550 MG Enteral Nutritional Formula 1,000 ml 50ML/HR GT 10/27/24 13:30 10/30/24 21:46 1,000 ML Thiamine HCl 100 mg DAILY IV 10/29/24 10:00 11/04/24 08:55 100 MG Folic Acid 1 mg DAILY PO 10/29/24 10:00 11/04/24 08:59 1 MG Lactulose 30 ml BID PO 10/29/24 22:00 11/03/24 08:36 30 ML Ceftriaxone Sodium 50 ml @ 100 mls/hr DAILY@09 IV 10/30/24 09:00 11/04/24 08:56 100 MLS/HR Metronidazole 100 ml @ 100 mls/hr Q8HR IV 10/29/24 22:00 11/04/24 05:55 100 MLS/HR Lorazepam 0.5 mg Q8HP PRN IV 10/31/24 17:45 11/03/24 23:18 0.5 MG Morphine Sulfate 2 mg Q4HP PRN IV 11/04/24 11:30 11/04/24 12:21 2 MG Laboratory Results Laboratory Tests 11/03/24 04:50 Urinalysis Test 10/25/24 09:20 Urine Color Dark-yellow (Yellow) Urine Clarity Turbid (Clear) H Urine pH 6.0 (5.0-9.0) Urine Specific [place] 1.025 (1.001-1.035) Urine Protein Trace (Negative) H Urine Ketones Negative (Negative) Urine Blood Negative /uL (Negative) Urine Nitrite Negative (Negative) Urine Bilirubin 1+ (Negative) Urine Urobilinogen 4 mg/dL (Negative) H Urine Leukocyte Esterase Negative /uL (Negative) Urine RBC <1 /hpf (0 - 3) Urine Microscopic WBC 2 /HPF (0-3) Urine Squamous Epithelial Cells Few /hpf (<5) Urine Bacteria None seen /hpf (None Seen) Urine Hyaline Casts Many /lpf (0 - 2) Urine Mucus Few (None Seen) Urine Glucose Normal mg/dL (Normal) Microbiology Microbiology Date/Time Source Procedure Growth Status 10/29/24 17:40 Blood Blood Culture - Final NO GROWTH AFTER 5 DAYS OF INCUBATION. Complete 10/26/24 17:50 Ascities Fluid Gram Stain - Final Complete 10/26/24 17:50 Body Fluid Culture - Final Staphylococcus epidermidis Complete 10/26/24 09:20 Nose MRSA Screen - Final Complete 10/25/24 09:20 Voided Urine Urine Culture - Final Complete 10/25/24 08:18 Sputum Gram Stain - Final Complete 10/25/24 08:18 Sputum Respiratory Culture - Final Complete Labs and/or images reviewed: Labs reviewed by me Assessment/Plan Assessment/Plan ICU Course: 29-year-old gentleman with past medical history significant for hypertension, chronic alcoholism, malnutrition, liver cirrhosis with decompensated liver failure previously presented to the ED with abdominal pain, was found to have septic shock, toxic/metabolic encephalopathy and was unable to protect airways and was intubated and sedated and was upgraded to the ICU/ANNIE use status, limited history but as per family patient was still drinking at least 3 weeks prior to this incident. Patient remains intubated and off of sedation but sleepy failed CPAP today. Frequent past hospitalization with alcohol abuse and liver cirrhosis related complications. Hospitalization day: 15 A. Neurology: # sedation for mechanical ventilation synchronization off since TuesdayOctober 27/2025 likely slow excretion of medications # toxic/metabolic hepatic encephalopathy: Presented with altered level of consciousness likely due to the above, multifactorial possibly due to hyperammonemia, sepsis, bacteremia, infection, electrolyte disturbances. # chronic alcohol abuse: Despite having progressed to liver cirrhosis in her early 30s patient continues to drink, needs further evaluation and supportive care and 12 step alcohol rehabilitation program to be recommended at recovery of the acute stage. # hyperammonemia, improved: b.i.d. lactulose, with rifaximin 550 b.i.d. with target bowel movement of 2-3 times per day. # anxiety and agitation: as needed Precedex while on intubation but patient is overly sensitive q8 hours of iv Ativan 0.5 mg if needed increase the frequency. AVOID STRICTLY: versed, propofol and fentanyl. as needed restrictions. will try to avoid. # Bundle of delirium precaution. B. Cardiology: # hypotension improved, was Off of Levophed. as needed Levophed to keep MAP >65 # history of hypertension held all antihypertensives, target blood pressure for this gentleman will be 140/90 or below as per aha/ACC guidelines. C. Respiratory: # acute respiratory failure: AC/VC/VT 450, peep of 5, FiO2 of 30%, minimal when sitting saturating well of SpO2 near 100% failed CPAP trial this AM after 2 hours. RR fell to 6, RBSS 13 and NIF to 17 likely due to altered level of consciousness. Ruled out secondary causes of hypothyroidism, central, musculoskeletal or neurological cases of bradypnea. Ongoing CPAP trial, cxr unremarkable, no further bradypnea. NIF -20. tolerating cpap close to extubation. NPO and aspiration precaution. # possible aspiration pneumonia: Under level of consciousness might be contributory to respiratory failure, broad-spectrum antibiotic to continue. D. Gastrointestinal: # liver cirrhosis due to alcohol abuse, Maddrey score <32, does not need any IV steroid, CMP trending to be done. # portal hypertension: Likely due to cirrhosis. We will hold aldactone for now. # ascites: 1.4 L approximately fluid aspirated+ 2.1 L = 3.5 L both for therapeutic and diagnostic purpose, to rule out spontaneous bacterial peritonitis, sample, culture, lab under work. Further therapeutic paracentesis in this hospitalization with IR. # umbilical hernia: Stable, on incarcerated, previously known. No intervention needed at this point. # NG tube in place, nutrition to continue with tube feeding as tolerated. # cholelithiasis without cholecystitis # hyperbilirubinemia, improving. CMP follow up # transaminitis improved # acute cholecystitis not excluded, further clinical evaluation and once patient is more stable might consider HIDA scan. E. Genitourinary: # on Pool's catheter, close input output to check. F. Infectious Disease: # Gram-negative bacteremia: E coli, pansensitive septic shock and ascites related complications, mycoplasma anaerobic > IV cefepime and vancomycin change to ceftriaxone and metronidazole and follow Gram-negative bacteremia, repeat blood culture, positive staph epidermides likely contamination no need of change in abx. G. Hematology & Oncology: # pancytopenia secondary to liver cirrhosis and possible hepatosplenomegaly # thrombocytopenia: Close follow up, no active bleeding noted. # anemia: Transfusion threshold 7, H&H stable. H. Nephrology: # hyponatremia: Corrected for hypoalbuminemia, likely due to cirrhosis, close follow up of CMP daily. # ANDRÉS likely due to vasomotor nephropathy, resolved, check intake output and avoid nephrotoxics. I. Endocrine: # moderate protein energy malnutrition likely due to underlying alcoholism and poor oral intake, dietitian consult when appropriate. J. MSK: # poor muscle mass, likely wound benefitted from physical therapy after acute care. . K. Prophylaxis: PPI: IV PPI DVT: Avoid heparin ambulated products, due to thrombocytopenia. SCDs L. Lines & Drains (with insertion date): IV 10/25 Central 10/25 Arterial line not needed M. Drips off of all. Started as needed precedex. N. Disposition: In telemetry This medical document was created using an electronic medical record system with M[employer] direct computerized dictation system. Although this document has been carefully reviewed, there may still be some phonetic and typographical errors. These areas are purely typographical due to imperfections of the software programs, and do not reflect any compromise in the patient's medical care. Plan discussed with: Patient My Orders Orders - HOANG PAREDES MD Procedure Category Date Status Time Morphine Sulfate PHA 11/04/24 In Process Injection 11:30 Discontinue Pool ARACELY 11/04/24 In Process Catheter 11:18 Date of Service: Nov 04, 2024 Billing Provider: HOANG PAREDES MD Common Visit Codes: [id number] INP/OBS CARE(HIGH) HOANG PAREDES MD Nov 04, 2024 12:59
--- NOTE | 2024-11-04 22:12 | DVHPN2 ---
Progress Note - Dictate Date Seen: Nov 04, 2024 Has the PT tested + for MRSA If YES, has PT been informed?: No Medical Necessity Reason Pt with a Central, PICC or Fol: Yes The following are medically ne: Central Line, Cartwright Catheter Reason for cartwright catheter: Strict I&O Subjective Patient seen and examined at bedside. Breathing comfortably on room air. Patient is ambulating and undergoing physical therapy Patient was complaining of some difficulty urinating and his Cartwright catheter is being removed Hemoglobin stable at 7.4, liver enzymes are trending down Initial blood culture grew Gram-negative rods E coli, repeat cultures are negative Ascitic fluid was positive for coag-negative staph vital signs Vital Sign Date Time Temp Pulse Resp B/P (MAP) Pulse Ox O2 Delivery O2 Flow Rate FiO2 11/04/24 17:49 104 18 111/69 11/04/24 17:00 98.0 97 98.0 11/04/24 08:00 Room Air* 0 21 Total Intake and Output 11/03/24 11/03/24 11/04/24 15:00 23:00 07:00 Intake Total 150 ml 50 ml 800 ml Output Total 100 ml 200 ml Balance 150 ml -50 ml 600 ml medications Current Medications Medications Dose Ordered Sig/Gretchen Route Start Time Stop Time Status Last Admin Dose Admin Acetaminophen 650 mg Q6HP PRN PO 10/25/24 08:15 11/02/24 20:19 650 MG Nitroglycerin 0.4 mg Q5MINP PRN SL 10/25/24 08:15 Morphine Sulfate 2 mg Q30M PRN IV 10/25/24 08:15 Multivitamins/ Minerals 1 tab DAILY PO 10/25/24 10:00 11/04/24 08:55 1 TAB Pantoprazole Sodium 40 mg DAILY IV 10/25/24 10:00 11/04/24 08:55 40 MG Rifaximin 550 mg BID PO 10/25/24 22:00 11/04/24 08:59 550 MG Enteral Nutritional Formula 1,000 ml 50ML/HR GT 10/27/24 13:30 10/30/24 21:46 1,000 ML Thiamine HCl 100 mg DAILY IV 10/29/24 10:00 11/04/24 08:55 100 MG Folic Acid 1 mg DAILY PO 10/29/24 10:00 11/04/24 08:59 1 MG Lactulose 30 ml BID PO 10/29/24 22:00 11/03/24 08:36 30 ML Ceftriaxone Sodium 50 ml @ 100 mls/hr DAILY@09 IV 10/30/24 09:00 11/04/24 08:56 100 MLS/HR Metronidazole 100 ml @ 100 mls/hr Q8HR IV 10/29/24 22:00 11/04/24 14:45 100 MLS/HR Lorazepam 0.5 mg Q8HP PRN IV 10/31/24 17:45 11/03/24 23:18 0.5 MG Morphine Sulfate 2 mg Q4HP PRN IV 11/04/24 11:30 11/04/24 17:19 2 MG objective Examination: GENERAL:Normal, HEENT:Abnormal (jaundice), LUNGS:Normal, CVS:Normal, ABDOMEN:Abnormal (ascitis, umbilical hgernia, abdomen soft laboratory and microbiology Laboratory Tests 11/03/24 04:50 Test 11/03/24 04:50 Range/Units Serum Glucose 85 74-106 mg/dL Problems(with codes): (1) E. coli septicemia (2) Generalized weakness (3) Ascites (4) Intractable abdominal pain (5) Elevated liver enzymes (6) Splenomegaly (7) Pancytopenia (8) Alcohol abuse Prognosis Plan Continue supportive care Continue current medical management Start oral diuretics for mild ascites S/P paracentesis with 3 L of fluid removed on 11/01 Continue physical therapy On oral lactulose, Xifaxan, thiamine Monitor labs Dietary Evaluation Review Recommendations by RD: PPN/TPN Comments: 1) If GI route is preferred, consider Nutrihelp @ 60 mL/hr goal rate as tolerated. Initiate free water flushes @ 200 mL Q6. TF regimen will provide 2160 kcals, 58g Pro, and 1938 mL fuid (including flushes) per 24 hrs. Goal rate will meet ~ 82% daily estimated energy needs and ~ 97% daily estaimted protein needs) 2) If patient remains NPO for more than 7 days, consider TPN to meet at least 75% of estimated needs 3) Advance to hepatic diet when medically feasible, pending ACID POLYMERIZATION OPERATOR approval 4) Continue to monitor I&O, labs, fluid retention, and skin integrity Expected Outcomes/Goals: 1) patient to receive nutrition within 7 days 2) labs to improve 3) diet to advance 4) f/u in 3 days Plan discussed with: Patient, Other (Nurse Troy) KATELYN JOYCE MD Nov 04, 2024 22:12
--- NOTE | 2024-11-04 23:04 | DVHPN2 ---
Progress Note - Dictate Date Seen: Nov 04, 2024 Has the PT tested + for MRSA If YES, has PT been informed?: No Medical Necessity Reason Pt with a Central, PICC or Fol: Yes The following are medically ne: Central Line Subjective Patient seen and examined at bedside. Currently on supplemental oxygen Overnight events reviewed. vital signs Vital Sign Date Time Temp Pulse Resp B/P (MAP) Pulse Ox O2 Delivery O2 Flow Rate FiO2 11/04/24 22:43 111 17 113/71 11/04/24 17:00 98.0 97 98.0 11/04/24 08:00 Room Air* 0 21 Total Intake and Output 11/03/24 11/03/24 11/04/24 15:00 23:00 07:00 Intake Total 150 ml 50 ml 800 ml Output Total 100 ml 200 ml Balance 150 ml -50 ml 600 ml medications Current Medications Medications Dose Ordered Sig/Gretchen Route Start Time Stop Time Status Last Admin Dose Admin Acetaminophen 650 mg Q6HP PRN PO 10/25/24 08:15 11/02/24 20:19 650 MG Nitroglycerin 0.4 mg Q5MINP PRN SL 10/25/24 08:15 Morphine Sulfate 2 mg Q30M PRN IV 10/25/24 08:15 Multivitamins/ Minerals 1 tab DAILY PO 10/25/24 10:00 11/04/24 08:55 1 TAB Pantoprazole Sodium 40 mg DAILY IV 10/25/24 10:00 11/04/24 08:55 40 MG Rifaximin 550 mg BID PO 10/25/24 22:00 11/04/24 22:31 550 MG Enteral Nutritional Formula 1,000 ml 50ML/HR GT 10/27/24 13:30 10/30/24 21:46 1,000 ML Thiamine HCl 100 mg DAILY IV 10/29/24 10:00 11/04/24 08:55 100 MG Folic Acid 1 mg DAILY PO 10/29/24 10:00 11/04/24 08:59 1 MG Lactulose 30 ml BID PO 10/29/24 22:00 11/04/24 22:30 30 ML Ceftriaxone Sodium 50 ml @ 100 mls/hr DAILY@09 IV 10/30/24 09:00 11/04/24 08:56 100 MLS/HR Metronidazole 100 ml @ 100 mls/hr Q8HR IV 10/29/24 22:00 11/04/24 22:38 100 MLS/HR Lorazepam 0.5 mg Q8HP PRN IV 10/31/24 17:45 11/04/24 22:48 0.5 MG Morphine Sulfate 2 mg Q4HP PRN IV 11/04/24 11:30 11/04/24 22:43 2 MG Furosemide 20 mg DAILY PO 11/05/24 10:00 Spironolactone 50 mg DAILY PO 11/05/24 10:00 objective Gen.: Patient lying in bed in no apparent distress. On supplemental oxygen. Head: Normocephalic, atraumatic. Eyes: EOMI/PERRLA. Ears: Normal hearing. Normal anatomy. Neck/trachea: Trachea midline, supple. Nose: Normal external anatomy. Mouth: Moist mucous membranes. Chest: Decreased air entry bilaterally. No wheezing or rhonchi. Cardiovascular: Positive S1, positive S2. Regular rate and rhythm. Abdomen: Positive bowel sounds in all 4 quadrants. Soft, non-tender, non- distended. : Deferred. Rectal: Deferred. Skin: Warm, dry. Intact. Extremities: 2+ radial pulses bilaterally. No lower extremity edema. Neuro: Awake, alert, oriented x3. No gross motor or sensory deficits. Cranial nerves II through XII intact. Gait not assessed. laboratory and microbiology Laboratory Tests 11/03/24 04:50 Test 11/03/24 04:50 Range/Units Serum Glucose 85 74-106 mg/dL Assessment/Plan Impression: Acute hypoxic respiratory failure Intractable abdominal pain Lactic acidosis Transaminitis Pancytopenia History of liver cirrhosis Ascites Splenomegaly Cholelithiasis Events: Currently on supplemental oxygen 2 LPM NC Taper O2 as tolerated Off pressors since 11/02/24, hemodynamically stable. Continue antibiotics Incentive spirometry Continue physical therapy Pool was discontinued. CXR on 11/02/24 shows no acute cardiopulmonary disease S/p paracentesis on 10/28/24 - 2.1 liters of ascitic fluid were drained. See separate procedure note for details. Labs and imaging reviewed. Rest of plan as noted below. Plan: s/p extubation on 11/01/24 Supplemental oxygen Titrate to keep sats above 92% Pressors if necessary for hemodynamic support Titrate to keep mean arterial pressure greater than 65 mmHg. Continue lactulose Continue antibiotics. F/u cultures. Blood cultures showed no growth after 5 days. Ascitic fluid cultures grew Staph epidermidis Monitor renal function Monitor electrolytes. Supplement as necessary. Monitor ins and outs. GI prophylaxis. DVT prophylaxis. Prognosis: Guarded given patient's multiple co-morbidities. Rest of plan per hospitalist and other consultants. Thank you Dr. Nova, for allowing me to participate in this patient's care. Further recommendations will depend on the patient's clinical course. Please do not hesitate to contact me if you have any questions or concerns. This medical document was created using an electronic medical record system with Well dictation system. Although these documentations are being carefully reviewed, there may still be some phonetic and typographical changes. The errors are purely typographical, due to imperfection on the software program, and do not reflect any compromise in the patient's medical care. Dietary Evaluation Review Recommendations by RD: PPN/TPN Comments: 1) If GI route is preferred, consider Nutrihelp @ 60 mL/hr goal rate as tolerated. Initiate free water flushes @ 200 mL Q6. TF regimen will provide 2160 kcals, 58g Pro, and 1938 mL fuid (including flushes) per 24 hrs. Goal rate will meet ~ 82% daily estimated energy needs and ~ 97% daily estaimted protein needs) 2) If patient remains NPO for more than 7 days, consider TPN to meet at least 75% of estimated needs 3) Advance to hepatic diet when medically feasible, pending RESIDENTIAL PROPERTY MANAGER approval 4) Continue to monitor I&O, labs, fluid retention, and skin integrity Expected Outcomes/Goals: 1) patient to receive nutrition within 7 days 2) labs to improve 3) diet to advance 4) f/u in 3 days Plan discussed with: Patient, Other (BRENT Simmons) EILEEN LORENZO MD Nov 04, 2024 23:04
[2024-11-05] VITALS (7 sets, daily range): BP systolic 96–104; BP diastolic 62–67; PULSE 96–104; RESP 17–19; TEMP 97.7–98.6; O2SAT 98–100
[2024-11-05 08:53] LABS: Basophils # (auto) 0 10 ^3/uL (0-0.2); Basophils % (auto) 0.4 % (0.0-2.0); Eosinophils # (auto) 0.3 10 ^3/uL (0-0.8); Eosinophils % (auto) 5.5 % (0.0-7.0); Hematocrit 27.6 % (41.0-53.0); Hemoglobin 8.6 g/dL (13.5-17.5); Lymphocytes # (auto) 0.5 10 ^3/uL (0.4-5.4); Mean Corpuscular Hemoglobin 29.8 pg (28.0-32.0); Mean Corpuscular Hgb Conc. 31.2 g/dL (32.0-36.0); Mean Corpuscular Volume 95.7 fL (80.0-100.0); Monocytes # (auto) 0.3 10 ^3/uL (0-1.3); Monocytes % (auto) 6.5 % (0.0-12.0); Neutrophils # (auto) 3.8 10 ^3/uL (1.6-8.6); Neutrophils % (auto) 77.6 % (37.0-80.0); Nucleated Red Blood Cells % 0.1 %; Platelet Count (auto) 72 10^3/uL (140-450); Red Blood Cells 2.88 10^6/uL (4.5-5.90); White Blood Cell 4.9 10^3/uL (4.4-10.8)
[2024-11-05 09:00] LABS: INR 1.94 (0.9-1.15); Prothrombin Time 19.3 sec (9.3-11.8)
[2024-11-05 09:03] LABS: Anion Gap 3 (5-15); BUN/Creatinine Ratio 21.7 (10.0-20.0); Carbon Dioxide 20 mmol/L (20-31); Red Cell Distribution Width 28.6 % (11.8-14.3); Total Protein 6.3 g/dL (5.7-8.2)
[2024-11-05 09:07] LABS: Alanine Aminotransferase 55 U/L (7-40); Alkaline Phosphatase 192 U/L (46-116); Aspartate Aminotransferase 81 U/L (13-40); Bilirubin, Total 3.9 mg/dL (0.2-1.0); Blood Urea Nitrogen 25 mg/dL (9-23); Calcium 7.4 mg/dL (8.7-10.4); Chloride 109 mmol/L (98-107); Glucose 128 mg/dL (74-106); Sodium 132 mmol/L (136-145)
[2024-11-05 09:21] LABS: Anisocytosis Moderate; Hypochromia Slight
[2024-11-05 09:22] LABS: Platelet Estimate Decreased; Tear Drop Cells FEW
[2024-11-05] MEDS: SPIRONOLACTONE 25 MG TAB PO SCH (09:49)
[2024-11-05] MEDS: FUROSEMIDE 20 MG TAB PO SCH (09:50)
--- NOTE | 2024-11-05 11:02 | DVHPN2 ---
Progress Note Date Seen: Nov 05, 2024 Has the PT tested + for MRSA If YES, has PT been informed?: No Medical Necessity Reason Pt with a Central, PICC or Fol: Yes The following are medically ne: Central Line Subjective Patient reports: No new complaints Review of Systems: HEENT:Normal, CVS:Normal, RESPIRATORY:Normal, GI:Normal, :Normal, MSK:Normal, NEURO:Normal Objective vital signs Vital Sign Date Time Temp Pulse Resp B/P (MAP) Pulse Ox O2 Delivery O2 Flow Rate FiO2 11/05/24 09:50 100/65 11/05/24 08:30 98.6 102 17 99 98.6 11/05/24 08:20 Room Air* 0 21 Total Intake and Output 11/04/24 11/04/24 11/05/24 15:00 23:00 07:00 Intake Total 398 ml 1049 ml 750 ml Output Total 250 ml Balance 148 ml 1049 ml 750 ml medications Current Medications Medications Dose Ordered Sig/Gretchen Route Start Time Stop Time Status Last Admin Dose Admin Acetaminophen 650 mg Q6HP PRN PO 10/25/24 08:15 11/02/24 20:19 650 MG Nitroglycerin 0.4 mg Q5MINP PRN SL 10/25/24 08:15 Morphine Sulfate 2 mg Q30M PRN IV 10/25/24 08:15 Multivitamins/ Minerals 1 tab DAILY PO 10/25/24 10:00 11/05/24 09:50 1 TAB Pantoprazole Sodium 40 mg DAILY IV 10/25/24 10:00 11/05/24 09:47 40 MG Rifaximin 550 mg BID PO 10/25/24 22:00 11/05/24 09:50 550 MG Enteral Nutritional Formula 1,000 ml 50ML/HR GT 10/27/24 13:30 10/30/24 21:46 1,000 ML Thiamine HCl 100 mg DAILY IV 10/29/24 10:00 11/05/24 09:45 100 MG Folic Acid 1 mg DAILY PO 10/29/24 10:00 11/05/24 09:48 1 MG Lactulose 30 ml BID PO 10/29/24 22:00 11/05/24 09:48 30 ML Ceftriaxone Sodium 50 ml @ 100 mls/hr DAILY@09 IV 10/30/24 09:00 11/05/24 09:45 100 MLS/HR Metronidazole 100 ml @ 100 mls/hr Q8HR IV 10/29/24 22:00 11/05/24 05:00 100 MLS/HR Lorazepam 0.5 mg Q8HP PRN IV 10/31/24 17:45 11/04/24 22:48 0.5 MG Morphine Sulfate 2 mg Q4HP PRN IV 11/04/24 11:30 11/05/24 08:25 2 MG Furosemide 20 mg DAILY PO 11/05/24 10:00 11/05/24 09:50 20 MG Spironolactone 50 mg DAILY PO 11/05/24 10:00 11/05/24 09:49 50 MG Examination: GENERAL:Normal, HEENT:Normal, NECK:Normal, LUNGS:Normal, CVS:Normal, ABDOMEN:Normal, ABDOMEN:Abnormal (ascites), MSK:Normal, SKIN:Normal, NEURO:Normal, :Normal laboratory and microbiology Laboratory Tests 11/05/24 07:58 Test 11/05/24 07:58 Range/Units Serum Glucose 128 H 74-106 mg/dL Microbiology Date/Time Source Procedure Growth Status 10/29/24 17:40 Blood Blood Culture - Final NO GROWTH AFTER 5 DAYS OF INCUBATION. Complete 10/26/24 17:50 Ascities Fluid Gram Stain - Final Complete 10/26/24 17:50 Body Fluid Culture - Final Staphylococcus epidermidis Complete 10/26/24 09:20 Nose MRSA Screen - Final Complete 10/25/24 09:20 Voided Urine Urine Culture - Final Complete 10/25/24 08:18 Sputum Gram Stain - Final Complete 10/25/24 08:18 Sputum Respiratory Culture - Final Complete Problem List/Assessment/Plan Problem List/Assessment/Plan #1 acute resp failure: extubated #2 sepsis with e coli: levaquin #3 liver cirrhosis due to alcohol abuse #4 ascites: paracentesis #5 anemia/thrombocytopenia #6 mod protein malnutrition advance care planning- full code- time spent 18 mins Plan discussed with: Patient My Orders My Orders Orders - DHEERAJ MONTANO MD Procedure Category Date Status Time D/C Tlc ARACELY 11/05/24 In Process 10:55 Paracentesis US 11/05/24 Logged 10:55 Levofloxacin Tablet PHA 11/06/24 Transmitted (Levaquin Tablet) 10:00 * Radiology Specialist CONS 11/05/24 Transmitted Consult Pantoprazole Tablet PHA 11/06/24 Transmitted (Protonix Tablet) 06:00 Discontinue Tele ARACELY 11/05/24 Transmitted 10:58 Transfer Orders XFER 11/05/24 Transmitted 10:58 Dietary Evaluation Review Recommendations by RD: PPN/TPN Comments: 1) If GI route is preferred, consider Nutrihelp @ 60 mL/hr goal rate as tolerated. Initiate free water flushes @ 200 mL Q6. TF regimen will provide 2160 kcals, 58g Pro, and 1938 mL fuid (including flushes) per 24 hrs. Goal rate will meet ~ 82% daily estimated energy needs and ~ 97% daily estaimted protein needs) 2) If patient remains NPO for more than 7 days, consider TPN to meet at least 75% of estimated needs 3) Advance to hepatic diet when medically feasible, pending DIRECTOR OF PAYROLL approval 4) Continue to monitor I&O, labs, fluid retention, and skin integrity Expected Outcomes/Goals: 1) patient to receive nutrition within 7 days 2) labs to improve 3) diet to advance 4) f/u in 3 days Date of Service: Nov 05, 2024 Billing Provider: DHEERAJ MONTANO MD Common Visit Codes: [id number] INP/OBS CARE(HIGH) Secondary Visit Codes: [id number] CARE PLAN 30 MINUTES DHEERAJ MONTANO MD Nov 05, 2024 11:01
--- NOTE | 2024-11-05 11:53 | DVHPN2 ---
Progress Note Date Seen: Nov 05, 2024 Resident Creating Document: ESTELLA VERAS RESIDENT Has the PT tested + for MRSA If YES, has PT been informed?: No Medical Necessity Reason Pt with a Central, PICC or Fol: Yes The following are medically ne: Central Line Subjective Review of Systems Patient seen and examined at bedside. Breathing comfortably on room air. Patient is ambulating and undergoing physical therapy Hemoglobin up to 8.6 from 7.4 Last bowel movement this morning, no diarrhea, no blood in stool. Initial blood culture grew Gram-negative rods E coli, repeat cultures are negative Ascitic fluid was positive for coag-negative staph Objective vital signs Vital Sign Date Time Temp Pulse Resp B/P (MAP) Pulse Ox O2 Delivery O2 Flow Rate FiO2 11/05/24 09:50 100/65 11/05/24 08:30 98.6 102 17 99 98.6 11/05/24 08:20 Room Air* 0 21 Total Intake and Output 11/04/24 11/04/24 11/05/24 15:00 23:00 07:00 Intake Total 398 ml 1049 ml 750 ml Output Total 250 ml Balance 148 ml 1049 ml 750 ml medications Current Medications Medications Dose Ordered Sig/Gretchen Route Start Time Stop Time Status Last Admin Dose Admin Acetaminophen 650 mg Q6HP PRN PO 10/25/24 08:15 11/02/24 20:19 650 MG Nitroglycerin 0.4 mg Q5MINP PRN SL 10/25/24 08:15 Morphine Sulfate 2 mg Q30M PRN IV 10/25/24 08:15 Multivitamins/ Minerals 1 tab DAILY PO 10/25/24 10:00 11/05/24 09:50 1 TAB Rifaximin 550 mg BID PO 10/25/24 22:00 11/05/24 09:50 550 MG Folic Acid 1 mg DAILY PO 10/29/24 10:00 11/05/24 09:48 1 MG Lactulose 30 ml BID PO 10/29/24 22:00 11/05/24 09:48 30 ML Morphine Sulfate 2 mg Q4HP PRN IV 11/04/24 11:30 11/05/24 08:25 2 MG Furosemide 20 mg DAILY PO 11/05/24 10:00 11/05/24 09:50 20 MG Spironolactone 50 mg DAILY PO 11/05/24 10:00 11/05/24 09:49 50 MG Levofloxacin 500 mg DAILY PO 11/06/24 10:00 UNV Pantoprazole Sodium 40 mg DAILY@0600 PO 11/06/24 06:00 UNV Examination General Appearance: Cooperative. Well developed. Well nourished. NAD Head Exam: Normal inspection. Yellowing of the skin noted Neck Exam: Normal inspection. Non-tender. Normal alignment Pulmonary/Respiratory: Chest non-tender. Clear bilateral breath sounds Cardiovascular/Chest: Regular rate and rhythm. No murmurs. No JVD. Abdominal Exam: Umbilical hernia noted, reducible. Distended but soft abdomen, dullness to percussion in shifting dullness noted Neuro/Mental Status: A&O x4. Coherent Thoughts/Psych: Normal thought pattern. Appropriate mood and affect. Good judgement and insight Appearance: In no acute distress laboratory and microbiology Laboratory Tests 11/05/24 07:58 Test 11/05/24 07:58 Range/Units Serum Glucose 128 H 74-106 mg/dL Microbiology Date/Time Source Procedure Growth Status 10/29/24 17:40 Blood Blood Culture - Final NO GROWTH AFTER 5 DAYS OF INCUBATION. Complete 10/26/24 17:50 Ascities Fluid Gram Stain - Final Complete 10/26/24 17:50 Body Fluid Culture - Final Staphylococcus epidermidis Complete 10/26/24 09:20 Nose MRSA Screen - Final Complete 10/25/24 09:20 Voided Urine Urine Culture - Final Complete 10/25/24 08:18 Sputum Gram Stain - Final Complete 10/25/24 08:18 Sputum Respiratory Culture - Final Complete Labs and/or images reviewed: Labs reviewed by me, Image(s) reviewed by me Problem List/Assessment/Plan Problem List/Assessment/Plan Acute intractable abdominal pain Ascites Elevated liver enzymes Splenomegaly Pancytopenia E coli septicemia Generalized weakness due to above Alcohol abuse Plan Continue supportive care Continue current medical management Start oral diuretics for mild ascites S/P paracentesis with 3 L of fluid removed on 11/01 Continue physical therapy On oral lactulose, Xifaxan, thiamine Monitor labs Plan discussed with: Patient, Other (BRENT Turner) Dietary Evaluation Review Recommendations by RD: PPN/TPN Comments: 1) If GI route is preferred, consider Nutrihelp @ 60 mL/hr goal rate as tolerated. Initiate free water flushes @ 200 mL Q6. TF regimen will provide 2160 kcals, 58g Pro, and 1938 mL fuid (including flushes) per 24 hrs. Goal rate will meet ~ 82% daily estimated energy needs and ~ 97% daily estaimted protein needs) 2) If patient remains NPO for more than 7 days, consider TPN to meet at least 75% of estimated needs 3) Advance to hepatic diet when medically feasible, pending CLIENT SERVICE ADMINISTRATOR approval 4) Continue to monitor I&O, labs, fluid retention, and skin integrity Expected Outcomes/Goals: 1) patient to receive nutrition within 7 days 2) labs to improve 3) diet to advance 4) f/u in 3 days ESTELLA VERAS RESIDENT Nov 05, 2024 11:53
--- NOTE | 2024-11-05 12:01 | DVH ---
ULTRASOUND ABDOMEN limited, 4 QUADRANTS INDICATION: ASCITES. FLUID EVAL Evaluate for ascites. TECHNIQUE: The four quadrants of the abdomen were scanned in benites-scale to assess for the presence of ascites. N o solid organ assessment was performed. FINDINGS/IMPRESSIONS: Large volume ascites.
--- NOTE | 2024-11-05 15:56 | DVH ---
US PARACENTESIS, HISTORY: ASCITES PROCEDURE: Informed consent was obtained. The patient was placed in supine position. A limited locali zation ultrasound of the abdomen was obtained, and the skin site over the largest pocket of fluid was marked and entry site was prepped with chlorhexidine which was allowed to dry and draped in the usua l sterile fashion. Time out was performed. Following administration of 1% lidocaine local anesthetic, a 5 [place] centesis needle catheter was percutaneously inserted into the peritoneal collection until fluid was aspirated. The catheter was advanced into the fluid collection and the needle removed. Abo ut 5200 cc of fluid was aspirated . The catheter was then removed and a sterile dressing applied. No immediate complication was identified. FINDINGS: Limited ultrasound imaging demonstrates moderate ascites. Aspirated fluid was clear and ser ous. IMPRESSION: US-guided paracentesis with 5.2L removed.
[2024-11-05] MEDS: TEMAZEPAM 15 MG CAP PO ONE (21:45)
[2024-11-06] VITALS (7 sets, daily range): BP systolic 80–94; BP diastolic 44–64; PULSE 92–104; RESP 16–18; TEMP 37.2; O2SAT 94–98
[2024-11-06] MEDS: PANTOPRAZOLE 40 MG TAB PO SCH (06:44)
[2024-11-06] MEDS: levoFLOXacin 500 MG TAB PO SCH (09:36)
[2024-11-06] MEDS: ALBUMIN 5% 250 ML IV ONE (09:38)
--- NOTE | 2024-11-06 11:26 | DVHPN2 ---
Progress Note Date Seen: Nov 06, 2024 Resident Creating Document: ESTELLA VERAS RESIDENT Has the PT tested + for MRSA If YES, has PT been informed?: No Medical Necessity Reason Pt with a Central, PICC or Fol: Yes The following are medically ne: Central Line Subjective Review of Systems Patient seen and examined at bedside. S/p 5.2 L paracentesis done on 11/05/2024 Breathing comfortably on room air. Patient is ambulating and undergoing physical therapy Hemoglobin up to 8.6 from 7.4 Last bowel movement this morning, no diarrhea, no blood in stool. Reports feeling better than yesterday Initial blood culture grew Gram-negative rods E coli, repeat cultures are negative Ascitic fluid was positive for coag-negative staph Objective vital signs Vital Sign Date Time Temp Pulse Resp B/P (MAP) Pulse Ox O2 Delivery O2 Flow Rate FiO2 11/06/24 11:13 103 16 110/66 11/06/24 10:11 98.0 98 98.0 11/05/24 20:00 Room Air* 0 21 Total Intake and Output 11/05/24 11/05/24 11/06/24 15:00 23:00 07:00 Intake Total 2040 ml 1200 ml Balance 2040 ml 1200 ml medications Current Medications Medications Dose Ordered Sig/Gretchen Route Start Time Stop Time Status Last Admin Dose Admin Acetaminophen 650 mg Q6HP PRN PO 10/25/24 08:15 11/02/24 20:19 650 MG Nitroglycerin 0.4 mg Q5MINP PRN SL 10/25/24 08:15 Morphine Sulfate 2 mg Q30M PRN IV 10/25/24 08:15 Multivitamins/ Minerals 1 tab DAILY PO 10/25/24 10:00 11/06/24 09:35 1 TAB Rifaximin 550 mg BID PO 10/25/24 22:00 11/06/24 09:36 550 MG Folic Acid 1 mg DAILY PO 10/29/24 10:00 11/06/24 09:36 1 MG Lactulose 30 ml BID PO 10/29/24 22:00 11/05/24 21:45 30 ML Morphine Sulfate 2 mg Q4HP PRN IV 11/04/24 11:30 11/06/24 11:13 2 MG Furosemide 20 mg DAILY PO 11/05/24 10:00 11/06/24 09:37 20 MG Spironolactone 50 mg DAILY PO 11/05/24 10:00 11/06/24 09:37 50 MG Levofloxacin 500 mg DAILY PO 11/06/24 10:00 11/06/24 09:36 500 MG Pantoprazole Sodium 40 mg DAILY@0600 PO 11/06/24 06:00 11/06/24 06:44 40 MG Examination General Appearance: Cooperative. Well developed. Well nourished. NAD Head Exam: Normal inspection. Yellowing of the skin noted Neck Exam: Normal inspection. Non-tender. Normal alignment Pulmonary/Respiratory: Chest non-tender. Clear bilateral breath sounds Cardiovascular/Chest: Regular rate and rhythm. No murmurs. No JVD. Abdominal Exam: Umbilical hernia noted, reducible. Distended but soft abdomen, trace shifting dullness Neuro/Mental Status: A&O x4. Coherent Thoughts/Psych: Normal thought pattern. Appropriate mood and affect. Good judgement and insight Appearance: In no acute distress laboratory and microbiology Laboratory Tests 11/05/24 07:58 Test 11/05/24 07:58 Range/Units Serum Glucose 128 H 74-106 mg/dL Microbiology Date/Time Source Procedure Growth Status 10/29/24 17:40 Blood Blood Culture - Final NO GROWTH AFTER 5 DAYS OF INCUBATION. Complete 10/26/24 17:50 Ascities Fluid Gram Stain - Final Complete 10/26/24 17:50 Body Fluid Culture - Final Staphylococcus epidermidis Complete 10/26/24 09:20 Nose MRSA Screen - Final Complete 10/25/24 09:20 Voided Urine Urine Culture - Final Complete 10/25/24 08:18 Sputum Gram Stain - Final Complete 10/25/24 08:18 Sputum Respiratory Culture - Final Complete Labs and/or images reviewed: Labs reviewed by me, Image(s) reviewed by me Problem List/Assessment/Plan Problem List/Assessment/Plan Acute intractable abdominal pain Ascites Elevated liver enzymes Splenomegaly Pancytopenia E coli septicemia Generalized weakness due to above Alcohol abuse Plan Continue supportive care Continue current medical management Start oral diuretics for mild ascites S/P paracentesis with 3 L of fluid removed on 11/01 Continue physical therapy On oral lactulose, Xifaxan, thiamine Monitor labs Please follow up with GI in the outpatient clinic Plan discussed with: Patient, Other (RN) Dietary Evaluation Review Recommendations by RD: PPN/TPN Comments: 1) If GI route is preferred, consider Nutrihelp @ 60 mL/hr goal rate as tolerated. Initiate free water flushes @ 200 mL Q6. TF regimen will provide 2160 kcals, 58g Pro, and 1938 mL fuid (including flushes) per 24 hrs. Goal rate will meet ~ 82% daily estimated energy needs and ~ 97% daily estaimted protein needs) 2) If patient remains NPO for more than 7 days, consider TPN to meet at least 75% of estimated needs 3) Advance to hepatic diet when medically feasible, pending UTILIZATION REVIEW COORDINATOR approval 4) Continue to monitor I&O, labs, fluid retention, and skin integrity Expected Outcomes/Goals: 1) patient to receive nutrition within 7 days 2) labs to improve 3) diet to advance 4) f/u in 3 days ESTELLA VERAS RESIDENT Nov 06, 2024 11:26
--- NOTE | 2024-11-06 11:34 | DVHDS2 ---
Discharge Summary Date of Admission Oct 25, 2024 at 08:15 Date of Discharge: Nov 06, 2024 Labs/Diagnostic Data: Laboratory Results Test 11/05/24 07:58 11/03/24 04:50 11/01/24 12:23 11/01/24 07:34 White Blood Count 4.9 10^3/uL (4.4-10.8) Red Blood Count 2.88 10^6/uL (4.5-5.90) Hemoglobin 8.6 g/dL (13.5-17.5) Hematocrit 27.6 % (41.0-53.0) Mean Corpuscular Volume 95.7 fL (80.0-100.0) Mean Corpuscular Hemoglobin 29.8 pg (28.0-32.0) Mean Corpuscular Hemoglobin Concent 31.2 g/dL (32.0-36.0) Red Cell Distribution Width 28.6 % (11.8-14.3) Platelet Count 72 10^3/uL (140-450) Mean Platelet Volume 8.6 fL (6.9-10.8) Neutrophils (%) (Auto) 77.6 % (37.0-80.0) Lymphocytes (%) (Auto) 10.0 % (10.0-50.0) Monocytes (%) (Auto) 6.5 % (0.0-12.0) Eosinophils (%) (Auto) 5.5 % (0.0-7.0) Basophils (%) (Auto) 0.4 % (0.0-2.0) Neutrophils # (Auto) 3.8 10 ^3/uL (1.6-8.6) Lymphocytes # (Auto) 0.5 10 ^3/uL (0.4-5.4) Monocytes # (Auto) 0.3 10 ^3/uL (0-1.3) Eosinophils # (Auto) 0.3 10 ^3/uL (0-0.8) Basophils # (Auto) 0 10 ^3/uL (0-0.2) Nucleated Red Blood Cells 0.1 % Platelet Estimate Decreased Clumped Platelets Few Hypochromasia (manual) Slight Poikilocytosis (manual) Slight Anisocytosis (manual) Moderate Tear Drop Cells Few Prothrombin Time 19.3 sec (9.3-11.8) Prothrombin Time INR 1.94 (0.9-1.15) Sodium Level 132 mmol/L (136-145) Potassium Level 4.0 mmol/L (3.5-5.1) Chloride Level 109 mmol/L (98-107) Carbon Dioxide Level 20 mmol/L (20-31) Anion Gap 3 (5-15) Blood Urea Nitrogen 25 mg/dL (9-23) Creatinine 1.15 mg/dL (0.700-1.30) Glomerular Filtration Rate Calc 87 mL/min (>90) BUN/Creatinine Ratio 21.7 (10.0-20.0) Serum Glucose 128 mg/dL (74-106) Calcium Level 7.4 mg/dL (8.7-10.4) Total Bilirubin 3.9 mg/dL (0.2-1.0) Aspartate Amino Transferase (AST) 81 U/L (13-40) Alanine Aminotransferase (ALT) 55 U/L (7-40) Alkaline Phosphatase 192 U/L (46-116) Ammonia 13 umol/L (11-32) Total Protein 6.3 g/dL (5.7-8.2) Albumin 2.0 g/dL (3.2-4.8) Teresa Cells Few Schistocytes Few Blood Gas Specimen Type Arterial Blood Gas Sample Site Right radial Blood Gas Patient Temperature 37.0 Arterial Blood Date Drawn [id number] Arterial Blood pH 7.373 (7.350-7.450) Arterial Blood Partial Pressure CO2 30.9 mmHg (35.0-48.0) Arterial Blood Partial Pressure O2 131.0 mmHg (83.0-108.0) Arterial Blood HCO3 17.6 mmol/L (21.0-28.0) Arterial Blood Oxygen Saturation 98.3 % (94.0-98.0) Arterial Blood Base Excess -6.9 mmol/L (-2.0-3.0) Arterial Blood Oxyhemoglobin 97.1 % (94.0-98.0) Arterial Blood Carboxyhemoglobin 0.8 % (0.5-1.5) Arterial Blood Methemoglobin 0.4 % (0.0-1.5) John Test Modified Blood Gas Total Hemoglobin 7.90 g/dL (13.5-17.5) Blood Gas Modality Vent - cpap Blood Gas Spontaneous Rate 14 FiO2 % 30.0 Blood Gas Pressure Support 8 Blood Gas PEEP or CPAP 5.0 Blood Gas Set Respiration Rate 18.0 Blood Gas Tidal Volume 450.0 Test 11/01/24 05:08 10/31/24 09:34 10/31/24 04:50 10/29/24 09:24 Target Cells Few Free Thyroxine (T4) Calculated 0.64 ng/dL (0.89-1.76) Free Triiodothyronine (T3) pg/mL 2.02 pg/mL (2.3-4.2) Thyroid Stimulating Hormone (TSH) 1.14 uIU/mL (0.55-4.78) Blood Gas Spontaneous Tidal Volume 1.10 Test 10/29/24 05:50 10/28/24 07:41 10/28/24 05:37 10/28/24 05:27 Phosphorus Level 2.7 mg/dL (2.4-5.1) Magnesium Level 3.1 mg/dL (1.6-2.6) Vancomycin Level Trough 9.2 ug/mL (5-10) Blood Gas Critical Value Read Back Yes Direct Bilirubin 3.8 mg/dL (<0.3) Ovalocytes Few Test 10/27/24 13:32 10/27/24 05:08 10/26/24 17:50 10/26/24 04:48 Urine Opiates Screen Neg (NEGATIVE) Urine Fentanyl Screen Pos (NEGATIVE) Urine Barbiturates Screen Neg (NEGATIVE) Urine Phencyclidine Screen Neg (NEGATIVE) Urine Amphetamines Screen Neg (NEGATIVE) Urine Benzodiazepines Screen Pos (NEGATIVE) Urine Cocaine Screen Neg (NEGATIVE) Urine Cannabinoids Screen Neg (NEGATIVE) Plasma/Serum Blood Alcohol < 3.0 mg/dL (<10) Random Vancomycin Level 9.6 ug/mL (5-10) Body Fluid Source Peritoneal fluid Body Fluid pH 8.0 Body Fluid WBC (Manual) 120 CUMM (0-200) Body Fluid RBC (Manual) 10 CUMM (0-2000) Body Fluid Mononuclear Cells 5 % Body Fluid Polymorphonuclear Cells 95 % (0-25) Body Fluid Total Protein 0.6 g/dL (.) Body Fluid Albumin <0.2 g/dL (Not Estab.) Body Fluid Lactate Dehydrogenase 22 IU/L (.) Body Fluid Amylase 15 U/L (.) Activated Partial Thromboplast Time 43.3 SEC (24.5-34.5) Test 10/25/24 09:20 10/25/24 08:27 2/27/25 07:15 Urine Color Dark-yellow (Yellow) Urine Clarity Turbid (Clear) Urine pH 6.0 (5.0-9.0) Urine Specific [place] 1.025 (1.001-1.035) Urine Protein Trace (Negative) Urine Ketones Negative (Negative) Urine Blood Negative /uL (Negative) Urine Nitrite Negative (Negative) Urine Bilirubin 1+ (Negative) Urine Urobilinogen 4 mg/dL (Negative) Urine Leukocyte Esterase Negative /uL (Negative) Urine RBC <1 /hpf (0 - 3) Urine Microscopic WBC 2 /HPF (0-3) Urine Squamous Epithelial Cells Few /hpf (<5) Urine Bacteria None seen /hpf (None Seen) Urine Hyaline Casts Many /lpf (0 - 2) Urine Mucus Few (None Seen) Urine Glucose Normal mg/dL (Normal) Lactic Acid Level 3.3 mmol/L (0.4-2.0) B-Type Natriuretic Peptide 17.38 pg/mL (0-100) Other Laboratory Tests 11/05/24 07:58 Brief Hx & Hospital Course: see dictated note Condition at Discharge: Fair Final Diagnosis/Problems List liver cirrhosis Discharge Disposition: Home Discharge Instruct/Medications Diet: Cardiac 2g Na,low cholest Diet comment: fluid restriction to 1100 cc/day Activity: No Restrictions, As Tolerated Follow Up/Referral: fu with pcp in 1 wk Medications: script to pharmacy Discharge Statement: "Patient was advised to return to the ER or call 911 if any headaches, dizziness, shortness of breath, chest pain, abdominal pain, bleeding, fevers, or worsening of medical condition. Patient was counseled about treatment plan, medications, possible side effects, patientverbalized understanding. All questions were answered to the best of my ability. This discharge took greater then 30 minutes in planning, reviewing documentation, counseling the patient, and discussing with other team members." DME: Diagnosis: Front Wheel Walker ASSESSMENT ASSESSMENT Assessment liver cirrhosis Date of Service: Nov 06, 2024 Billing Provider: DHEERAJ MONTANO MD Common Visit Codes: 08725-JKI/OBS DISCH DAY >30min DHEERAJ MONTANO MD Nov 06, 2024 11:34
[2024-11-06] MEDS ORDERED: RIFA550T PO (11:37)
[2024-11-06] MEDS ORDERED: SPIR100T PO (11:37)
[2024-11-06] MEDS ORDERED: LACT10SO3 PO (11:37)
[2024-11-06] MEDS ORDERED: PANT40TA2 PO (11:37)
[2024-11-06] MEDS ORDERED: FURO1TAB31 PO (11:37)
--- NOTE | 2024-11-06 23:06 | DVHDS ---
DATE OF DISCHARGE: 11/06/2024 HISTORY: A 29-year-old gentleman who came in with altered level of consciousness and was intubated for hepatic encephalopathy. The patient has alcoholic liver cirrhosis. HOSPITAL COURSE: The patient had blood cultures positive for E. coli. The patient underwent paracentesis about two times. The patient's ammonia level was elevated at 224. The patient's mental status subsequently improved and he was extubated. The patient's peritoneal fluid was suggestive of transudate. The patient's repeat blood cultures have been negative. He will now be discharged home to be on Lasix 40 mg daily, Aldactone 100 mg b.i.d., lactulose 30 mL t.i.d., rifaximin 550 mg b.i.d., and Protonix 40 mg daily. He will follow up with his primary in one week. FINAL DIAGNOSES: * Acute respiratory failure. * Hepatic encephalopathy. * Sepsis secondary to Escherichia coli. * Ascites with paracentesis. * Liver cirrhosis due to alcohol abuse. * Anemia with thrombocytopenia. * Moderate protein malnutrition. * Umbilical hernia. Time spent in discharge planning and review of plan with the patient and nursing was 39 minutes. MD JARRED Thomas/IVETTE/MICHELLE TID: [id number] RECEIPT: [id number]
== END 2024-11-06 15:38 | disposition home or self-care (01) | DRG 720 ==
LOC: EDBD 06:39 → ER 06:39 → OVERFLOW 08:15 → ICU CENTRL 10-26 09:25 → TELE-EAST 11-03 17:26 → EAST 11-05 23:59
PROVIDERS: ADMIT Internal Medicine; ATTEND Internal Medicine
PROC: 5A1955Z Respiratory Ventilation, Greater than 96 Consecutive Hours (ICD-10-PCS; principal; 2024-10-25)
PROC: 0BH17EZ Insertion of Endotracheal Airway into Trachea, Via Natural or Artificial Opening (ICD-10-PCS; 2024-10-25)
PROC: 02HV33Z Insertion of Infusion Device into Superior Vena Cava, Percutaneous Approach (ICD-10-PCS; 2024-10-25)
PROC: 0W9G3ZZ Drainage of Peritoneal Cavity, Percutaneous Approach (ICD-10-PCS; 2024-10-26)
PROC: 0W9G3ZZ Drainage of Peritoneal Cavity, Percutaneous Approach (ICD-10-PCS; 2024-10-28)
PROC: 0W9G3ZZ Drainage of Peritoneal Cavity, Percutaneous Approach (ICD-10-PCS; 2024-11-01)
PROC: 0W9G3ZZ Drainage of Peritoneal Cavity, Percutaneous Approach (ICD-10-PCS; 2024-11-05)
DX: A41.51 Sepsis due to Escherichia coli [E. coli] (principal); J96.01 Acute respiratory failure with hypoxia; N17.0 Acute kidney failure with tubular necrosis; R65.21 Severe sepsis with septic shock; D61.818 Other pancytopenia; K80.00 Calculus of gallbladder with acute cholecystitis without obstruction; E44.0 Moderate protein-calorie malnutrition; G92.8 Other toxic encephalopathy; E87.20 Acidosis, unspecified; K76.82 Hepatic encephalopathy; K76.6 Portal hypertension; E87.1 Hypo-osmolality and hyponatremia; E87.5 Hyperkalemia; K52.9 Noninfective gastroenteritis and colitis, unspecified; K62.89 Other specified diseases of anus and rectum; R16.1 Splenomegaly, not elsewhere classified; K42.9 Umbilical hernia without obstruction or gangrene; E80.6 Other disorders of bilirubin metabolism; F10.10 Alcohol abuse, uncomplicated; Y90.0 Blood alcohol level of less than 20 mg/100 ml; D68.9 Coagulation defect, unspecified; E66.3 Overweight; E88.09 Other disorders of plasma-protein metabolism, not elsewhere classified; K70.31 Alcoholic cirrhosis of liver with ascites; F41.9 Anxiety disorder, unspecified; Z79.84 Long term (current) use of oral hypoglycemic drugs; Z79.899 Other long term (current) drug therapy; Z79.2 Long term (current) use of antibiotics; Z80.0 Family history of malignant neoplasm of digestive organs; Z80.42 Family history of malignant neoplasm of prostate; Z82.49 Family history of ischemic heart disease and other diseases of the circulatory system; Z79.1 Long term (current) use of non-steroidal anti-inflammatories (NSAID); Z71.41 Alcohol abuse counseling and surveillance of alcoholic; Z68.26 Body mass index [BMI] 26.0-26.9, adult
CPT/HCPCS: 31500; 36415; 36556; 36600; 71045; 74176; 76705; 76942; 80048; 80053; 80076; 80202; 80307; 80320; 81001; 82140; 82150; 82805; 83605; 83735; 83880; 83986; 84100; 84132; 84439; 84443; 84481; 85025; 85610; 85730; 87040; 87070; 87077; 87081; 87086; 87186; 87205; 89051; 92610; 94002; 94003; 94640; 96365; 96368; 96375; 97110; 97116; 97163; 97530; 99291; 99292; G0378; J0692; J2470; J2704; J3490; J7060

== ENCOUNTER 2024-11-11 21:14 | Inpatient (IN) | payer MEDICAID ==
[~2024-11-11] VITALS: Ht 172.7 cm; Wt 66.7 kg
[~2024-11-11 21:14] MED LIST changes: -CHL10C PO; +LACT10SO3 PO; -LISI2.5T47 PO; -METR-344 PO; +RIFA550T PO; -SPIR25TA PO
--- NOTE | 2024-11-11 21:56 | ED.PDOC ---
History of Present Illness HPI Comments 29 y/o M is [id number] father for c/o ALOC and abdominal distension, today. Per father, who is a poor historian, patient is reported to have a history of chronic liver cirrhosis w/paracentesis and began to have worsening mental status, characterized by increasing confusion, and abdominal distension follow ing recent [facility] hospital admission discharge 5 days ago (November 06, 2024). He has no reported abdominal pain, nausea, vomiting, urinary symptoms, chest pain, shortness of breath, or other associated symptoms or modifiers at this time. Per [facility] medical record, patient has a history of acute respiratory failure, anemia w/thrombocytopenia, ascites w/paracentesis, cholelithiasis, hepatic encephalopathy, HTN, liver cirrhosis d/t alcohol abuse, seizures, and sepsis. Chief Complaint: Abdominal Pain Time Seen by MD: 21:20 Primary Care Provider: ALYSSA Reviewed Notes: Nurses Notes, Medications, Allergies Allergies: Coded Allergies: NO KNOWN ALLERGIES (Unverified , 01/27/21) Home Meds Active Scripts Pantoprazole Sodium Sesquihydr (Protonix) 40 Mg Tab, 40 MG PO DAILY for 30 Days, #30 TAB 2 Refills Prov:DHEERAJ MONTANO MD 11/06/24 Rifaximin (Xifaxan) 550 Mg Tab, 550 MG PO BID for 30 Days, #60 TAB 2 Refills Prov:DHEERAJ MONTANO MD 11/06/24 Lactulose (Lactulose) 10 Gm/15 Ml Karina, 10 GM PO TID for 30 Days, #120 ML 3 Refills Prov:DHEERAJ MONTANO MD 11/06/24 Furosemide (Lasix) 40 Mg Tab, 40 MG PO QAM for 30 Days, #30 TAB 2 Refills Prov:DHEERAJ MONTANO MD 11/06/24 Spironolactone (Aldactone) 100 Mg Tab, 100 MG PO BID for 30 Days, #60 TAB 2 Refills Prov:DHEERAJ MONTANO MD 11/06/24 Lactulose (Lactulose) 10 Gm Chris, 30 GM PO TID for 30 Days, #30 PACK 0 Refills Please take lactulose 30 mL 3 times daily Prov:WILL SHIELDS RESIDENT 10/19/24 Multiple Vitamins W/ Minerals (Mvi W/ Minerals Tab) 1 Tab Tb, 1 TAB PO DAILY for 30 Days, #30 TAB Prov:DHEERAJ MONTANO MD 09/27/24 Spironolactone (Aldactone) 100 Mg Tab, 100 MG PO DAILY for 30 Days, #30 TAB 3 Refills Prov:DHEERAJ MONTANO MD 09/27/24 Furosemide (Lasix) 40 Mg Tab, 40 MG PO QAM for 30 Days, #30 TAB 3 Refills Prov:DHEERAJ MONTANO MD 09/27/24 Pantoprazole Sodium Sesquihydr (Protonix) 40 Mg Tab, 40 MG PO DAILY for 30 Days, #30 TAB 2 Refills Prov:DHEERAJ MONTANO MD 09/27/24 Furosemide (Lasix) 40 Mg Tab, 40 MG PO DAILY for 30 Days, #30 TAB Prov:JO ELDER MD 11/20/23 Reported Medications Thiamine Hcl (VITAMIN B-1) 100 Mg Tb, 1 DAILY 10/13/24 Furosemide (Furosemide) 40 Mg Tab, 40 MG PO DAILY for 30 Days 11/19/23 Information Source: Relative (Father) Mode of Arrival: Wheelchair Severity: Moderate Timing: Days Duration: Since onset Past Medical History PAST MEDICAL HISTORY: Anemia (w/thrombocytopenia ), Anxiety, Gallstones, HTN, Liver (cirrhosis due to alcohol abuse ), Seizures Past Medical History (Other): acute respiratory failure ascites w/paracentesis hepatic encephalopathy sepsis Surgical History: Hernia Repair (umbilical hernia ) Surgical History (Other): paracentesis Family History Family History: Family hx of Cancer Social History Smoker: Non-Smoker Alcohol: Heavy Drugs: Denies Drug Use Lives In: Home Gastrointestinal: reports: abdomen distended Neurological: reports: others (ALOC w/confusion ) All Other Systems: Reviewed and Negative (negative unless otherwise stated above or in HPI) Physical Exam General Appearance: No Apparent Distress, Normal HEENT: Normal ENT Inspection, Pharynx Normal, TMs Normal Neck: Full Range of Motion, Non-Tender, Normal, Normal Inspection Respiratory: Chest Non-Tender, Lungs Clear, No Accessory Muscle Use, No Respiratory Distress, Normal Breath Sounds Cardiovascular: No Edema, No JVD, No Murmur, No Gallop, Normal Peripheral Pulses, Regular Rate/Rhythm Breast Exam: Deferred Gastrointestinal: Distended (abdomen, diffusely ), No Organomegaly, Non Tender, No Pulsatile Mass, Normal Bowel Sounds, Soft Genitalia: Deferred Pelvic: Deferred Rectal: Deferred Extremities: No calf tenderness, Normal capillary refill, Normal inspection, Normal range of motion, Non-tender, No pedal edema Musculoskeletal : Apperance: Normal Neurologic: engraver set up operator II-XII nml as Tested, No Motor Deficits, No Sensory Deficits, Other (A&Ox1) Cerebellar Function: Normal Reflexes: Normal Skin: Dry, Warm, Other (Jaundice ) Lymphatic: No Adenopathy Was a procedure done? Was a procedure done?: No Differential Dx Considerations may include: hepatic encephalopathy, fluid retention, ascites X-Ray, Labs, Meds, VS Vital Signs Date Time Temp Pulse Resp B/P (MAP) Pulse Ox O2 Delivery O2 Flow Rate FiO2 11/12/24 03:00 93.4 125 18 122/80 (94) 98 93.4 11/12/24 02:56 115/64 11/12/24 02:45 93.4 115 18 115/64 (81) 98 93.4 11/12/24 02:34 116 18 118/66 (83) 100 30 11/12/24 02:30 93.6 115 18 118/66 (83) 100 93.6 11/12/24 02:26 114/62 11/12/24 02:15 123 18 114/62 (79) 95 11/12/24 02:00 119 18 115/68 (84) 99 11/12/24 01:56 120/74 11/12/24 01:45 127 18 120/74 (89) 98 11/12/24 01:30 133 18 126/79 (95) 96 11/12/24 01:26 132/78 11/12/24 01:15 136 18 132/78 (96) 96 11/12/24 01:13 97.5 135 18 110/65 99 40 97.5 11/12/24 01:00 137 18 131/79 (96) 96 11/12/24 00:56 143/93 11/12/24 00:45 138 18 143/93 (110) 95 11/12/24 00:30 142 18 143/95 (111) 95 11/12/24 00:26 137/92 11/12/24 00:15 141 18 137/92 (107) 100 11/12/24 00:00 142 18 127/69 (88) 100 11/11/24 23:56 110/65 11/11/24 23:51 135 18 127/69 (88) 100 100 11/11/24 23:45 139 34 144/92 (109) 100 11/11/24 23:30 131 13 110/65 (80) 99 11/11/24 23:29 122/68 11/11/24 23:15 131 13 122/68 (86) 97 11/11/24 23:00 97.5 133 20 122/68 (86) 97 97.5 11/11/24 22:45 115 18 100 Mechanical Ventilator+ 40 40 11/11/24 22:45 97.5 115 8 122/68 (86) 97 97.5 11/11/24 22:36 118 19 98 Room Air* 0 21 11/11/24 22:36 97.5 118 19 122/68 (86) 98 97.5 11/11/24 21:18 97.5 118 20 121/81 (94) 100 97.5 Lab Test 11/12/24 01:20 11/12/24 00:09 11/11/24 23:45 11/11/24 21:45 Range/Units Body Fluid Glucose 125 . mg/dL Body Fluid Albumin <0.2 Not Estab. g/dL Body Fluid Lactate Dehydrogenase 23 . IU/L Blood Gas Specimen Type Arterial Blood Gas Sample Site Left radial Blood Gas Patient Temperature 37.0 Arterial Blood Date Drawn [id number] Arterial Blood pH 7.303 L 7.350-7.450 Arterial Blood Partial Pressure CO2 36.1 35.0-48.0 mmHg Arterial Blood Partial Pressure O2 342.0 *H 83.0-108.0 mmHg Arterial Blood HCO3 17.5 L 21.0-28.0 mmol/L Arterial Blood Oxygen Saturation 99.9 H 94.0-98.0 % Arterial Blood Base Excess -8.1 L -2.0-3.0 mmol/L Arterial Blood Oxyhemoglobin 98.6 H 94.0-98.0 % Arterial Blood Carboxyhemoglobin 0.4 L 0.5-1.5 % Arterial Blood Methemoglobin 0.9 0.0-1.5 % John Test Yes Blood Gas Total Hemoglobin 8.80 L 13.5-17.5 g/dL Blood Gas Set Respiration Rate 18.0 Blood Gas Modality Vent - ac FiO2 % 100.0 Blood Gas Tidal Volume 450.0 Blood Gas PEEP or CPAP 5.0 Blood Gas Critical Value Read Back Yes Blood Gas Notified Whom Md raysa guallpa Blood Gas Notified Time [id number] Blood Gas Notified By Associate Creative Director belle griffith Lactic Acid Level 3.9 *H 3.1 *H 0.4-2.0 mmol/L White Blood Count 4.9 4.4-10.8 10^3/uL Red Blood Count 2.95 L 4.5-5.90 10^6/uL Hemoglobin 8.8 L 13.5-17.5 g/dL Hematocrit 27.2 L 41.0-53.0 % Mean Corpuscular Volume 92.1 80.0-100.0 fL Mean Corpuscular Hemoglobin 30.0 28.0-32.0 pg Mean Corpuscular Hemoglobin Concent 32.5 32.0-36.0 g/dL Red Cell Distribution Width 26.2 H 11.8-14.3 % Platelet Count 97 L 140-450 10^3/uL Mean Platelet Volume 8.6 6.9-10.8 fL Neutrophils (%) (Auto) 76.5 37.0-80.0 % Lymphocytes (%) (Auto) 9.6 L 10.0-50.0 % Monocytes (%) (Auto) 11.5 0.0-12.0 % Eosinophils (%) (Auto) 2.2 0.0-7.0 % Basophils (%) (Auto) 0.2 0.0-2.0 % Neutrophils # (Auto) 3.8 1.6-8.6 10 ^3/uL Lymphocytes # (Auto) 0.5 0.4-5.4 10 ^3/uL Monocytes # (Auto) 0.6 0-1.3 10 ^3/uL Eosinophils # (Auto) 0.1 0-0.8 10 ^3/uL Basophils # (Auto) 0 0-0.2 10 ^3/uL Nucleated Red Blood Cells 0.1 % Platelet Estimate Decreased Hypochromasia (manual) Slight Anisocytosis (manual) Moderate Tear Drop Cells Few Schistocytes Few Prothrombin Time 16.1 H 9.3-11.8 sec Prothrombin Time INR 1.59 H 0.9-1.15 Activated Partial Thromboplast Time 35.9 H 24.5-34.5 SEC Sodium Level 132 L 136-145 mmol/L Potassium Level 5.2 H 3.5-5.1 mmol/L Chloride Level 106 98-107 mmol/L Carbon Dioxide Level 19 L 20-31 mmol/L Anion Gap 7 5-15 Blood Urea Nitrogen 37 H 9-23 mg/dL Creatinine 1.68 H 0.700-1.30 mg/dL Glomerular Filtration Rate Calc 55 >90 mL/min BUN/Creatinine Ratio 22.0 H 10.0-20.0 Serum Glucose 119 H 74-106 mg/dL Calcium Level 8.4 L 8.7-10.4 mg/dL Total Bilirubin 4.1 H 0.2-1.0 mg/dL Aspartate Amino Transferase (AST) 98 H 13-40 U/L Alanine Aminotransferase (ALT) 48 H 7-40 U/L Alkaline Phosphatase 165 H 46-116 U/L Ammonia 152 *H 11-32 umol/L Total Protein 6.6 5.7-8.2 g/dL Albumin 2.3 L 3.2-4.8 g/dL Microbiology Date/Time Source Procedure Growth Status 11/12/24 01:20 Peritoneal Fluid Gram Stain - Final Complete 11/12/24 01:20 Peritoneal Fluid Body Fluid Culture - Final Complete 11/11/24 23:57 Trachea Gram Stain - Final Complete 11/11/24 23:57 Respiratory Culture - Final Staphylococcus haemolyticus Complete [place] [address] Ph: [phone] DIAGNOSTIC IMAGING Diagnostic Imaging Report : [id number] Signed PATIENT: JONAH KAPLAN ACCT: [id number] UNIT: [id number] : 1995 LOC: ER ROOM / BED: / AGE / SEX: 29 / M ADM STATUS: REG ER SERVICE 19 ORDERING PHYSICIAN: GINNY GUALLPA MD PROCEDURE(s): CXRP - CHEST PORTABLE REASON: ams ORDER NUMBER(s): [id number], ACCESSION NUMBER(s): [id number] CHEST RADIOGRAPH Indication: ams Technique: Single frontal view of the chest was obtained COMPARISON: XY CHEST PORTABLE on DOS: 11/02/24, XY CHEST PORTABLE on DOS: 11/01/24, XY CHEST PORTABLE on DOS: 10/31/24, XY CHEST XRAY 1 VIEW on DOS: 10/30/24, XY CHEST PORTABLE on DOS: 10/29/24 FINDINGS: Lines and Tubes: None Lungs: Lung volumes are low. No abnormality demonstrated. Pleura: No effusion.No pneumothorax. Cardiomediastinal contours: Unremarkable IMPRESSION: Low lung volumes. No abnormality demonstrated. ATED BY: DEREK CUNHA MD DICTATED DATE/TIME: 11/11/242221 SIGNED BY: DEREK CUNHA MD SIGNED DATE/TIME: 11/11/242221 CC: Time of 1ST Reevaluation: 21:50 Reevaluation 1ST: Unchanged Patient Education/Counseling: Other (patient is altered ) Family Education/Counseling: Diagnosis, Treatment Additional Information Previous visit documents reviewed: October 25, 2024 encounter for intractable abdominal pain, acute The following tests were ordered, and results were reviewed by me: PTPTT, CXR, lactic acid, CMP, CBC, ammonia Additional Information was gathered from interviewing the following independent historians: father I reviewed and agreed with the following test results read by other providers: CXR I discussed treatment and results with medical personnel and: father Departure 1 Departure Time of Disposition: 04:55 (Patient presented with a panic encephalopathy. Patient was emergently intubated central line placed and admit to the ICU for further workup) Impression: Primary Impression: Hepatic encephalopathy Additional Impression: Generalized weakness Disposition: ADMITTED INPATIENT Admit to: ICU Condition: Critical Critical Care Note Critical Care Time?: No Stability Stability form required: No Heart Score Heart Score: Heart Score Response (Comments) Value History N/A 0 EKG N/A 0 Age N/A 0 Risk Factors N/A 0 Troponin N/A 0 Total 0 I personally scribed for GINNY GUALLPA MD ([email or web address]) on 11/11/24 at 21:56. Electronically submitted by Roman Carrington ([email or web address]). I personally scribed for GINNY GUALLPA MD ([email or web address]) on 11/11/24 at 22:35. Electronically submitted by Roman Carrington ([email or web address]). GINNY GUALLPA MD Nov 11, 2024 21:56
[2024-11-11 21:59] LABS: Basophils # (auto) 0 10 ^3/uL (0-0.2); Basophils % (auto) 0.2 % (0.0-2.0); Eosinophils # (auto) 0.1 10 ^3/uL (0-0.8); Eosinophils % (auto) 2.2 % (0.0-7.0); Hematocrit 27.2 % (41.0-53.0); Hemoglobin 8.8 g/dL (13.5-17.5); Lymphocytes # (auto) 0.5 10 ^3/uL (0.4-5.4); Lymphocytes % (auto) 9.6 % (10.0-50.0); Mean Corpuscular Hgb Conc. 32.5 g/dL (32.0-36.0); Mean Corpuscular Volume 92.1 fL (80.0-100.0); Monocytes # (auto) 0.6 10 ^3/uL (0-1.3); Monocytes % (auto) 11.5 % (0.0-12.0); Neutrophils # (auto) 3.8 10 ^3/uL (1.6-8.6); Neutrophils % (auto) 76.5 % (37.0-80.0); Nucleated Red Blood Cells % 0.1 %; Platelet Count (auto) 97 10^3/uL (140-450); Red Blood Cells 2.95 10^6/uL (4.5-5.90); White Blood Cell 4.9 10^3/uL (4.4-10.8)
[2024-11-11 22:00] LABS: Red Cell Distribution Width 26.2 % (11.8-14.3)
[2024-11-11 22:13] LABS: INR 1.59 (0.9-1.15); Partial Thromboplastin Time 35.9 SEC (24.5-34.5); Prothrombin Time 16.1 sec (9.3-11.8)
[2024-11-11 22:16] LABS: Anion Gap 7 (5-15); Chloride 106 mmol/L (98-107); Total Protein 6.6 g/dL (5.7-8.2)
[2024-11-11] MEDS: ETOMIDATE (2MG/ML) 20ML VIAL IV ONE ×2 (22:23→23:28)
[2024-11-11] MEDS: ROCURONIUM 10MG/ML 10ML VIAL IV ONE ×2 (22:23→23:29)
--- NOTE | 2024-11-11 22:24 | DVH ---
CHEST RADIOGRAPH Indication: ams Technique: Single frontal view of the chest was obtained COMPARISON: XY CHEST PORTABLE on DOS: 11/02/24, XY CHEST PORTABLE on DOS: 11/01/24, XY CHEST PORTABLE on DOS: 10/31/24, XY CHEST XRAY 1 VIEW on DOS: 10/30/24, XY CHEST PORTABLE on DOS: 10/29/24 FINDINGS: Lines and Tubes: None Lungs: Lung volumes are low. No abnormality demonstrated. Pleura: No effusion.No pneumothorax. Cardiomediastinal contours: Unremarkable IMPRESSION: Low lung volumes. No abnormality demonstrated.
[2024-11-11 22:36] VITALS: PULSE 118; RESP 19; O2SAT 98
[2024-11-11] MEDS: HALOPERIDOL LACTATE 5 MG/ML INJ VIAL IM ONE (22:41)
[2024-11-11 22:45] VITALS: PULSE 115; RESP 18; O2SAT 100
[2024-11-11 22:48] LABS: Alanine Aminotransferase 48 U/L (7-40); Albumin 2.3 g/dL (3.2-4.8); Alkaline Phosphatase 165 U/L (46-116); Anisocytosis Moderate; Aspartate Aminotransferase 98 U/L (13-40); Bilirubin, Total 4.1 mg/dL (0.2-1.0); Blood Urea Nitrogen 37 mg/dL (9-23); Calcium 8.4 mg/dL (8.7-10.4); Carbon Dioxide 19 mmol/L (20-31); Glucose 119 mg/dL (74-106); Hypochromia Slight; Potassium 5.2 mmol/L (3.5-5.1); Sodium 132 mmol/L (136-145); Tear Drop Cells FEW
[2024-11-11 22:49] LABS: Platelet Estimate Decreased
[2024-11-11 22:53] LABS: Lactic Acid w/Reflex 3.1 mmol/L (0.4-2.0)
[2024-11-11] MEDS: MIDAZOLAM DRIP 50 mg/50mL 50 ML IV SCH (23:56)
--- NOTE | 2024-11-11 23:58 | DVHNC2 ---
Intubation Indication: Respiratory Insufficiency, Altered Mental Status Prep: Preoxygenation Pretreated with: Analgesia, Sedation Medicated with: Other (rocoronium) Intubation Approach: Orotracheal Intubation size: cm (8) Informed consent obtained: Yes Risks/benefits/alt described: Yes Notes Procedure completed under supervision of Dr. Lebron pending chest x -ray Date of Service: Nov 11, 2024 Billing Provider: MANJU MORGAN MD Common Visit Codes: PROCEDURE ONLY Procedure Codes: [id number] SONALI OCHOA RESIDENT Nov 11, 2024 23:58 MANJU MORGAN MD Nov 12, 2024 11:57
[2024-11-12] VITALS (78 sets, daily range): BP systolic 81–118; BP diastolic 29–70; PULSE 89–135; RESP 15–28; TEMP 97.5–99.9; O2SAT 97–100
[2024-11-12 00:28] LABS: Base Excess -8.1 mmol/L (-2.0-3.0)
[2024-11-12] MEDS: CEFEPIME 2GM/50ML NS 50 ML IV ONE (01:30)
[2024-11-12] MEDS: SODIUM CHLORIDE 0.9% 1,000 ML IV ONE (01:38)
[2024-11-12] MEDS: VANCOMYCIN 1GM/200ML PM 250 ML IV ONE (01:46)
--- NOTE | 2024-11-12 02:07 | DVH ---
CHEST RADIOGRAPH Indication: ETT PLACEMENT Technique: Single frontal view of the chest was obtained Comparison: XY CHEST PORTABLE on DOS: 11/11/24, XY CHEST PORTABLE on DOS: 11/02/24, XY CHEST PORTABLE on DOS: 11/01/24 Findings/ IMPRESSION: Endotracheal tube projects terminating at the britta recommend withdrawing 2-3 cm and obtaining follo w-up imaging. Enteric tube coursing below the GE junction without visualization of side port or catheter tip. Righ t IJ CVC with tip terminating near the cavoatrial junction. Low lung volumes with bronchovascular cr owding. No pneumothorax.
[2024-11-12] MEDS ORDERED: VANCOMYCIN PER PHARMACY 0 MG IV SCH (03:15)
--- NOTE | 2024-11-12 03:17 | DVHHPRES ---
History of Present Illness Resident Creating Document: MEME LAUREN RESDIMANAN History of Present Illness A 29-year-old male with past medical history of liver cirrhosis secondary to alcohol use disorder, hypertension brought to the hospital due to altered level of consciousness. Per patient's father, he has history of chronic liver cirrhosis with multiple paracentesis and has been altered since 5 days which has progressively worsened. Patient recently (on 11/06/2024) discharged from [facility], had admitted due to hepatic encephalopathy and was intubated. Due to altered mental status of the patient, could not maintain airway, the patient was sedated and intubated. PMHx:liver cirrhosis secondary to alcohol use disorder, hypertension Home medication: Protonix, rifaximin, lactulose, furosemide, spironolactone, Allergic history: No known allergies Review of Systems Review of Systems Upon my assessment, patient was sedated and on mechanical ventilation, review of system could not obtain Allergies: Coded Allergies: NO KNOWN ALLERGIES (Unverified , 01/27/21) Medications Current Medications Medications Dose Ordered Sig/Gretchen Route Start Time Stop Time Status Last Admin Dose Admin Midazolam HCl 50 ml @ 1 mls/hr Q24H IV 11/11/24 23:30 11/11/24 23:56 1 MLS/HR Exam Vital Signs Vital Signs Date Time Temp Pulse Resp B/P (MAP) Pulse Ox O2 Delivery O2 Flow Rate FiO2 11/12/24 02:34 116 18 118/66 (83) 100 30 11/12/24 01:13 97.5 97.5 11/11/24 22:45 Mechanical Ventilator+ 11/11/24 22:36 0 Exam General: RASS -3, afebrile, mucosae are moist Cardiovascular: Normal S1 and S2. No murmurs, gallops or rubs Respiratory: Mechanically assisted ventilation, equal bilateral airway entree. Clear lung sounds on auscultation Abdomen: Soft, nontender, distended with positive shifting dullness and fluid thrill MSK/skin: Mobilization of limbs cannot be evaluated. Skin is dry and warm. Neurological: Orientation cannot be assessed. No apparent motor no sensitive deficits. Pupils are isocoric and reactive Labs/Xrays Labs Test 11/12/24 00:09 11/11/24 23:45 11/11/24 21:45 Range/Units Blood Gas Specimen Type Arterial Blood Gas Sample Site Left radial Blood Gas Patient Temperature 37.0 Arterial Blood Date Drawn [id number] Arterial Blood pH 7.303 L 7.350-7.450 Arterial Blood Partial Pressure CO2 36.1 35.0-48.0 mmHg Arterial Blood Partial Pressure O2 342.0 *H 83.0-108.0 mmHg Arterial Blood HCO3 17.5 L 21.0-28.0 mmol/L Arterial Blood Oxygen Saturation 99.9 H 94.0-98.0 % Arterial Blood Base Excess -8.1 L -2.0-3.0 mmol/L Arterial Blood Oxyhemoglobin 98.6 H 94.0-98.0 % Arterial Blood Carboxyhemoglobin 0.4 L 0.5-1.5 % Arterial Blood Methemoglobin 0.9 0.0-1.5 % John Test Yes Blood Gas Total Hemoglobin 8.80 L 13.5-17.5 g/dL Blood Gas Set Respiration Rate 18.0 Blood Gas Modality Vent - ac FiO2 % 100.0 Blood Gas Tidal Volume 450.0 Blood Gas PEEP or CPAP 5.0 Blood Gas Critical Value Read Back Yes Blood Gas Notified Whom Md raysa guallpa Blood Gas Notified Time [id number] Blood Gas Notified By Medicaid Collection Specialist belle griffith Lactic Acid Level 3.9 *H 0.4-2.0 mmol/L White Blood Count 4.9 4.4-10.8 10^3/uL Red Blood Count 2.95 L 4.5-5.90 10^6/uL Hemoglobin 8.8 L 13.5-17.5 g/dL Hematocrit 27.2 L 41.0-53.0 % Mean Corpuscular Volume 92.1 80.0-100.0 fL Mean Corpuscular Hemoglobin 30.0 28.0-32.0 pg Mean Corpuscular Hemoglobin Concent 32.5 32.0-36.0 g/dL Red Cell Distribution Width 26.2 H 11.8-14.3 % Platelet Count 97 L 140-450 10^3/uL Mean Platelet Volume 8.6 6.9-10.8 fL Neutrophils (%) (Auto) 76.5 37.0-80.0 % Lymphocytes (%) (Auto) 9.6 L 10.0-50.0 % Monocytes (%) (Auto) 11.5 0.0-12.0 % Eosinophils (%) (Auto) 2.2 0.0-7.0 % Basophils (%) (Auto) 0.2 0.0-2.0 % Neutrophils # (Auto) 3.8 1.6-8.6 10 ^3/uL Lymphocytes # (Auto) 0.5 0.4-5.4 10 ^3/uL Monocytes # (Auto) 0.6 0-1.3 10 ^3/uL Eosinophils # (Auto) 0.1 0-0.8 10 ^3/uL Basophils # (Auto) 0 0-0.2 10 ^3/uL Nucleated Red Blood Cells 0.1 % Platelet Estimate Decreased Hypochromasia (manual) Slight Anisocytosis (manual) Moderate Tear Drop Cells Few Schistocytes Few Prothrombin Time 16.1 H 9.3-11.8 sec Prothrombin Time INR 1.59 H 0.9-1.15 Activated Partial Thromboplast Time 35.9 H 24.5-34.5 SEC Sodium Level 132 L 136-145 mmol/L Potassium Level 5.2 H 3.5-5.1 mmol/L Chloride Level 106 98-107 mmol/L Carbon Dioxide Level 19 L 20-31 mmol/L Anion Gap 7 5-15 Blood Urea Nitrogen 37 H 9-23 mg/dL Creatinine 1.68 H 0.700-1.30 mg/dL Glomerular Filtration Rate Calc 55 >90 mL/min BUN/Creatinine Ratio 22.0 H 10.0-20.0 Serum Glucose 119 H 74-106 mg/dL Calcium Level 8.4 L 8.7-10.4 mg/dL Total Bilirubin 4.1 H 0.2-1.0 mg/dL Aspartate Amino Transferase (AST) 98 H 13-40 U/L Alanine Aminotransferase (ALT) 48 H 7-40 U/L Alkaline Phosphatase 165 H 46-116 U/L Ammonia 152 *H 11-32 umol/L Total Protein 6.6 5.7-8.2 g/dL Albumin 2.3 L 3.2-4.8 g/dL Assessment/Plan Assessment/Plan A 29-year-old male with past medical history of liver cirrhosis secondary to alcohol use disorder, hypertension brought to the hospital due to altered level of consciousness. Has been altered since 5 days which has progressively worsened. Due to altered mental status of the patient, could not maintain airway, the patient was sedated and intubated in 11/12/2024. NEURO: Acute metabolic encephalopathy, likely due to liver failure CARDIOVASCULAR: Septic shock, likely due to spontaneous bacterial peritonitis On vasopressors PULMONARY: Acute hypoxic respiratory failure, likely due to hepatic encephalopathy and massive ascites Patient is sedated and on mechanical ventilation with setting of VT 450, RR 18, peep 5, FiO2 40% maintaining saturation at 95% ABGs shows metabolic acidosis GASTROINTESTINAL: Decompensated liver failure, due to alcohol use disorder Liver cirrhosis Massive ascites, status post paracentesis taken out 4.5 lit Possible spontaneous bacterial peritonitis Transaminitis Hyperbilirubinemia Splenomegaly History of cholelithiasis Ammonia is raised at 152, downtrending CT scan from 10/25/2024 shows cirrhotic liver morphology, splenomegaly and cholelithiasis Empiric antibiotics Zosyn and vancomycin Peritoneal fluid studies GENITOURINARY: ANDRÉS, likely due to hepatorenal syndrome IV albumin Norepinephrine drip ENDOCRINE: METABOLIC: Mild hyponatremia Hyperkalemia Severe malnutrition, albumin 2.3 IV albumin HEME: Moderate anemia, normocytic normochromic Thrombocytopenia Acquired coagulopathy, likely due to liver cirrhosis INFECTIOUS DISEASE: Sepsis, likely due to spontaneous bacterial peritonitis Empiric antibiotic, Zosyn and vancomycin Blood, urine, peritoneal fluid and sputum culture DIET: NPO GI prophylaxis: Protonix Bowel regimen: Lactulose Code status: Full code LINES/DRAINS/ACCESS: ETT: Intubated on 11/11/2024 IV access: Right internal jugular vein, placed on 11/12/2024 Drips: Norepinephrine Fentanyl and Versed Pool catheter: Placed on 11/12/2019 DISPOSITION: ICU Critical care time spent more than 76 minutes, including patient care, chart review, and updating the family. Excluding any procedures. Case discussed with Dr. Patterson. Plan discussed with: Patient, Other My Orders Orders - MEME LAUREN RESDIMANAN Procedure Category Date Status Time Admit ADMIT 11/12/24 Transmitted 03:09 Code Status CODE 11/12/24 Transmitted 03:09 Vital Signs ARACELY 11/12/24 In Process 03:09 Review Orders With ARACELY 11/12/24 In Process Adm. 03:09 Npo (Nothing By DIET 11/12/24 Transmitted Mouth) Diet Breakfast Notify Of Changes ARACELY 11/12/24 In Process From Base 03:09 Advance Directive ARACELY 11/12/24 In Process 03:09 Basic Metabolic Panel LAB 11/12/24 Logged 03:09 Urinalysis LAB 11/12/24 Logged 03:09 Complete Blood Count LAB 11/12/24 Logged 03:09 Blood Culture [facility] 11/12/24 Logged 03:09 Urine Bacterial [facility] 11/12/24 Logged Culture 03:09 Patient Condition ORDERS 11/12/24 Transmitted 03:09 Allergies [facility] 11/12/24 In Process 03:09 Drug Screen LAB 11/12/24 Logged 03:09 Enoxaparin Sodium [facility] 11/12/24 Logged (Lovenox) 10:00 Oxygen By Nasal RT 11/12/24 Transmitted Cannula 03:09 Stat Ekg For Chest [facility] 11/12/24 In Process Pain 03:09 Notify Of Changes [facility] 11/12/24 In Process From Base 03:09 Denture Laboratory Technician For [facility] 11/12/24 In Process 24 Hours 03:09 Emergency Dysrhythmia [facility] 11/12/24 In Process Protocol 03:09 Rhythm Strips Once [facility] 11/12/24 In Process Every Shift 03:09 Vancomycin Per [facility] 11/12/24 Logged Pharmacy 03:15 Piperacillin-Tazob [facility] 11/12/24 Logged 3.375gm (Zosyn 3.375g 06:00 Magnesium LAB 11/12/24 Logged 03:09 Dietary Cons For [facility] 11/12/24 Transmitted Malnutrition 03:09 Albumin; Body Fluid LAB 11/12/24 Verified 03:15 Lactate LAB 11/12/24 Verified Dehydrogenase, Fluid 03:15 Body Fluid Culture W/ [facility] 11/12/24 Verified GS 03:15 Glucose Body Fluid LAB 11/12/24 Verified 03:15 Basic Metabolic Panel LAB 11/12/24 Logged 03:09 Date of Service: Nov 12, 2024 Billing Provider: MANJU PATTERSON MD Common Visit Codes: [id number] INP/OBS CARE (HIGH) MEME LAUREN RESDIENT Nov 12, 2024 03:17 MANJU PATTERSON MD Nov 12, 2024 18:05
--- NOTE | 2024-11-12 03:22 | DVHNC2 ---
TANA LAUREN RESDIENT 11/12/24 0322: Procedure - Central Line Procedure Note Date and time: 11/12/2024 at 2:00 am Indication: Vascular Access Central Line Location:Right Internal Jugular Vein Procedure Youth Director: Tana Lauren, Resident Attending Physician: Dr. Lebron Consent: Consent was obtained prior to the procedure Procedure Summary: A time out was performed. My hands were washed immediately prior to the procedure. I wore a surgical cap, mask with protective eyewear, full gown and sterile gloves throughout the procedure. The patient was placed in Trendelenburg position, with head turned 30 degrees away from the insertion site. TheRight [_] neck was prepped using chlorhexidine scrub and draped in sterile fashion using a three quarter sheet drape and sterile towels. Skin preparation was allowed to dry prior to skin puncture. Anatomic landmarks were identified. Anesthesia was achieved over the vein using 5ml of 1% lidocaine. Using real-time ultrasound, with sterile probe cover and sterile gel, the Right Internal Jugular Vein was identified on ultrasound using the linear ultrasound probe in the transverse orientation. The carotid was identified and avoided utilizing color-flow. The Internal Jugular Vein was then placed in the center of the ultrasound field and compressed for patency. The introducer needle was inserted into the vein under direct ultrasound visualization, and a movement artifact was identified as the needle was advanced through the skin toward the vessel. A real-time hyperechoic signal revealed visualization of vascular needle entry into the lumen as blood was noted to flashback in the syringe. The needle was then held in place, the syringe was removed, and the guide wire was advanced through the needle. Direct visualization of the guide wire location within the vein was noted on ultrasound, indicating proper placement. The needle was then removed. A small incision was made at the skin surface with a scalpel, and a skin dilator was advanced over the guide wire. After appropriate dilation was obtained, the dilator was removed, and a triple-lumen catheter was then advanced over the guide wire into proper position. The guide wire was removed and discarded. The ports were aspirated, which showed good blood return, and then carefully flushed with normal saline. The catheter was stabilized and sutured to the skin with 2- 0 silk at two anchor points. A sterile op-site was placed over the catheter and biopatch. The patient tolerated the procedure without any hemodynamic compromise. Estimated blood loss: 5 ml Post-procedure chest x-ray: Shows proper positioning of the catheter for use. MANJU MORGAN MD 11/12/24 1159: Date of Service: Nov 12, 2024 Billing Provider: MANJU MORGAN MD Common Visit Codes: PROCEDURE ONLY Procedure Codes: 35215-WQSSGS NON-TUNNEL CV CATH TANA LAUREN Nov 12, 2024 03:22 MANJU MORGAN MD Nov 12, 2024 11:59
[2024-11-12] MEDS: VANCOMYCIN 500mg/100mL PREMIX or KIT IV ONE (03:45)
[2024-11-12 03:54] LABS: Basophils # (auto) 0 10 ^3/uL (0-0.2); Lymphocytes # (auto) 0.6 10 ^3/uL (0.4-5.4); Monocytes # (auto) 0.7 10 ^3/uL (0-1.3); Platelet Count (auto) 98 10^3/uL (140-450)
[2024-11-12 03:56] LABS: Urine Bacteria None Seen /hpf (None Seen)
[2024-11-12 03:57] LABS: Basophils % (auto) 0.3 % (0.0-2.0); Eosinophils # (auto) 0.1 10 ^3/uL (0-0.8); Eosinophils % (auto) 2.5 % (0.0-7.0); Hematocrit 24.5 % (41.0-53.0); Hemoglobin 8.1 g/dL (13.5-17.5); Mean Corpuscular Hemoglobin 30.7 pg (28.0-32.0); Mean Corpuscular Hgb Conc. 33.2 g/dL (32.0-36.0); Mean Corpuscular Volume 92.4 fL (80.0-100.0); Neutrophils # (auto) 4.2 10 ^3/uL (1.6-8.6); Neutrophils % (auto) 73.2 % (37.0-80.0); Red Blood Cells 2.65 10^6/uL (4.5-5.90); White Blood Cell 5.7 10^3/uL (4.4-10.8)
[2024-11-12 03:59] LABS: Chloride 106 mmol/L (98-107)
[2024-11-12 04:00] LABS: Anion Gap 9 (5-15)
[2024-11-12 04:06] LABS: Magnesium 2.2 mg/dL (1.6-2.6)
[2024-11-12 04:11] LABS: Red Cell Distribution Width 26.4 % (11.8-14.3)
[2024-11-12 04:12] LABS: Blood Urea Nitrogen 38 mg/dL (9-23); Calcium 8.1 mg/dL (8.7-10.4); Carbon Dioxide 17 mmol/L (20-31); Glucose 130 mg/dL (74-106); Potassium 5.4 mmol/L (3.5-5.1); Sodium 132 mmol/L (136-145)
[2024-11-12 04:16] LABS: Barbiturate Scree,Urine Neg (NEGATIVE)
[2024-11-12 04:17] LABS: Cannabinoid Screen, Urine Neg (NEGATIVE); Phencyclidine Screen, Urine Neg (NEGATIVE); Urine Blood Negative /uL (Negative); Urine Clarity Turbid (Clear); Urine Color Dark-Yellow (Yellow); Urine Hyaline Cast MANY /lpf (0 - 2); Urine Mucus FEW (None Seen); Urine Protein, UAD TRACE (Negative); Urine Specific Gravity 1.025 (1.001-1.035); Urine Squamous Epithelial Cell FEW /hpf (<5); Urine Urobilinogen 2 mg/dL (Negative); Urine WBC 7 /HPF (0-3); Urine pH 5.5 (5.0-9.0)
[2024-11-12 04:22] LABS: Amphetamine Screen, Urine Neg (NEGATIVE); Benzodiazephine Screen, Urine Pos (NEGATIVE); Cocaine Screen, Urine Neg (NEGATIVE); Opiate Scree,Urine Pos (NEGATIVE)
[2024-11-12] MEDS: fentaNYL Drip 2500mCg/250mlNS 250 ML IV SCH (05:00)
[2024-11-12] MEDS: NOREPINEPHRINE 8 MG/250ML KIT 250 ML IV SCH (05:00)
[2024-11-12] MEDS: ALBUMIN 25% 100 ML IV SCH (05:03)
[2024-11-12] MEDS: SODIUM BICARB 8.4% 50Meq/50ml SYR INJ IV ONE (05:15)
[2024-11-12] MEDS: InsuLIN REG 1unit/0.01ml Soln (100units/ml) IV ONE (05:15)
--- NOTE | 2024-11-12 05:27 | DVH ---
EXAM: XR Chest, 1 View CLINICAL INDICATION: After retracting ET tube 2 cm TECHNIQUE: Frontal view of the chest. COMPARISON: XY CHEST XRAY 1 VIEW on DOS: 11/12/24, XY CHEST PORTABLE on DOS: 11/11/24, XY CHEST YOEL BLE on DOS: 11/02/24, XY CHEST PORTABLE on DOS: 11/01/24, XY CHEST PORTABLE on DOS: 10/31/24 FINDINGS: LUNGS AND PLEURAL SPACES: Mild pulmonary congestion. No consolidation. No pneumothorax. HEART: Unremarkable. No cardiomegaly. MEDIASTINUM: Unremarkable. Normal mediastinal contour. BONES/JOINTS: Unremarkable. No acute fracture. TUBES, LINES AND DEVICES: ETT with distal tip 4.1 cm from the britta. OTHER FINDINGS: . . IMPRESSION: 1. ETT with distal tip 4.1 cm from the britta. 2. Mild pulmonary congestion.
[2024-11-12 05:33] LABS: Anisocytosis Slight; Hypochromia Slight
[2024-11-12 05:34] LABS: Ovalocytes FEW; Platelet Estimate Decreased
[2024-11-12 05:45] LABS: INR 1.7 (0.9-1.15); Partial Thromboplastin Time 41.9 SEC (24.5-34.5); Prothrombin Time 17.1 sec (9.3-11.8)
[2024-11-12 05:51] LABS: Bilirubin, Direct 3.1 mg/dL (<0.3); Bilirubin, Total 4.1 mg/dL (0.2-1.0); Total Protein 5.7 g/dL (5.7-8.2)
[2024-11-12] MEDS: CALCIUM GLUC 1,000mg/50ml-NS 50 ML IV ONE (06:19)
[2024-11-12] MEDS: DEXTROSE (50%) 50ML SYRG IV ONE (06:19)
--- NOTE | 2024-11-12 06:51 | DVHNC2 ---
MILLYYONGMILLYJUANA RESDIENT 11/12/24 0651: Procedure - Paracentesis Procedure Note Date and Time: 11/12/24 at 2:30 am INDICATION: Massive Ascitic PROCEDURE BIOMEDICAL EQUIPMENT TECHNICIAN: Tana Posada, Resident ATTENDING PHYSICIAN: Dr. Lebron Ultrasound used to fátima location: Yes CONSENT: During the informed consent discussion regarding the procedure, or treatment, I explained the following to the patient/designee: Nature of the procedure or treatment and who will perform the procedure or treatment, necessity for procedure and the possible benefits, risks and complications (most common and serious). PROCEDURE SUMMARY: A time-out was performed. My hands were washed immediately prior to the procedure. I wore a surgical cap, mask with protective eyewear, sterile gown and sterile gloves throughout the procedure. The area was cleansed and draped in usual sterile fashion using chlorhexidine scrub. Anesthesia was achieved with 1% lidocaine. The _ of the abdomen was prepped and draped in a sterile fashion using chlorhexidine scrub. 1% lidocaine was used to numb the skin, soft tissue and peritoneum. The paracentesis catheter was inserted and advanced with negative pressure until clear colored fluid was aspirated. Approximately 60 mL of ascitic fluid was collected and sent for laboratory analysis. The catheter was then connected to the vaccutainer and 4.5 liters of additional ascitic fluid were drained. The catheter was removed and no leaking was noted. A bandaid was placed over the puncture wound. The patient tolerated the procedure well without any immediate complications. Estimated blood loss was less than 5ml. MANJU MORGAN MD 11/12/24 1806: Date of Service: Nov 12, 2024 Billing Provider: MANJU MORGAN MD Common Visit Codes: PROCEDURE ONLY Procedure Codes: 69252-FLDKNT NON-TUNNEL CV CATH [facility] Nov 12, 2024 06:51 MANJU MORGAN MD Nov 12, 2024 18:06
[2024-11-12 07:01] LABS: Base Excess -5.9 mmol/L (-2.0-3.0)
[2024-11-12 07:33] LABS: Lactic Acid w/Reflex 4.2 mmol/L (0.4-2.0)
--- NOTE | 2024-11-12 08:22 | DVHPNRES ---
Progress Note Date Seen: Nov 12, 2024 Resident Creating Document: GUSTAVO SANTIZO Medical Necessity Reason Pt with a Central, PICC or Fol: Yes The following are medically ne: Central Line, Pool Catheter Subjective Review of Systems HPI-Patient is 29 years old male with past medical history of cirrhosis of liver due to alcoholism, hypertension, history of recurrent hospitalization, history of recurrent paracentesis due to malignant ascites was admitted to the hospital due to altered mental status. Patient was brought in by the family due to altered mental status for last 5 days which was getting worse lately. Father patient had some vomiting but no blood. Patient's abdominal of the getting bigger as per father. Patient was recently discharged from [facility] on 11/06/2024. On arrival patient was on altered mental status with suspected metabolic encephalopathy. Patient was intubated to maintain his airway. Initial lab workup revealed WBC 4.9, hemoglobin 8.8, platelet 97, sodium 132, potassium 5.2, normal anion gap 7 BUN 37, serum creatinine 1.68, limit lactic acidosis with lactic acid 3.1> 3.9> 4.2, calcium 8.4, magnesium 2.2, serum bilirubin 4.1, AST 98, ALT 48, alkaline phosphatase 165, ammonia 152, albumin 2.3, analysis not significant for UTI, INR 1.59, CXR no acute cardiopulmonary disease. Patient has had paracentesis and 4.5 L of fluid was removed with a aseptic precaution. Central line was placed in the right internal jugular vein. Patient was recently hospitalized intubated on 10/25/2024 and extubated on 11/01/2024. S/p paracentesis on 10/28/24 - 2.1 liters of ascitic fluid were drained. See separate procedure note for details. S/p 5.2 L paracentesis done on 11/05/2024 Ascitic fluid cultures grew Staph epidermidis E coli septicemia On 10/25/2024 blood culture revealed E coli- sensitive to Levaquin On 10/26/2024 body fluid grew Staphylococcus epidermidis-sensitive to Levaquin CT SCAN -on 10/25/2024 revealed cirrhosis of liver, splenomegaly, cholelithiasis. Patient had paracentesis on 10/21/2024, 10/15/2024, 02/01/25, 11/05/24- PMH-liver cirrhosis secondary to alcohol use disorder, hypertension PSH- Allergy- NKDA Home medication: Protonix, rifaximin, lactulose, furosemide, spironolactone, Personal History/ Social History- Patient was intubated and on mechanical ventilation. Review of of the other system could not be done this moment Patient was seen today for clinical evaluation. Labs and chart reviewed. Patient is on mechanical ventilation, on sedation Lab workup revealed anemia with a hemoglobin 8.8> 8.1, thrombocytopenia with platelet 97> 98, mild hyponatremia likely delusional with sodium 132 >132, hyperkalemia with potassium 5.4, normal anion gap with anion gap 7, elevated serum creatinine 1.68> 1.73, BUN 37> 38, T acidosis with lactic acid 3.1> 3.9> 4.2, INR 1.59> 1.70, transaminitis with serum total bilirubin 4.1> 4.1, direct bilirubin 3.1, AST-98>79, ALT> 43, alkaline phosphatase 165> 143, hyperammonia 152> 141, hypoalbuminemia with albumin 2.3> 2.0 -ABG revealed metabolic acidosis with respiratory compensation Patient had paracentesis of 4.5 L of fluid early in the morning Patient's blood pressure running soft, on Levophed went up to 16, ordered vasopressin, Dr. Montano Ordered midodrine 10 mg p.o. t.i.d., rifaximin 550 mg p.o. b.i.d. Increased dose of lactulose to 30 mL q.6h Hospitality Director spoke to patient's father Mr. Caceres, [phone], discussed patient's current medical condition, plan of care and answered his question, Objective vital signs Vital Sign Date Time Temp Pulse Resp B/P (MAP) Pulse Ox O2 Delivery O2 Flow Rate FiO2 11/12/24 07:00 98.6 127 10 94/45 (61) 100 98.6 11/12/24 06:25 30 11/11/24 22:45 Mechanical Ventilator+ 11/11/24 22:36 0 Total Intake and Output 11/11/24 11/11/24 11/12/24 15:00 23:00 07:00 Intake Total 1443.75 ml Balance 1443.75 ml medications Current Medications Medications Dose Ordered Sig/Gretchen Route Start Time Stop Time Status Last Admin Dose Admin Midazolam HCl 50 ml @ 1 mls/hr Q24H IV 11/11/24 23:30 11/11/24 23:56 1 MLS/HR Vancomycin HCl 0 ml @ 0 mls/hr UD IV 11/12/24 03:15 UNV Piperacillin Sod/ Tazobactam Sod 100 ml @ 25 mls/hr Q8HR IV 11/12/24 14:00 Fentanyl Citrate 250 ml @ 2.5 mls/hr Q24H IV 11/12/24 05:00 11/12/24 07:00 2.5 MLS/HR Albumin Human 100 ml @ 100 mls/hr Q8H IV 11/12/24 05:00 11/12/24 21:59 11/12/24 05:03 100 MLS/HR Lactulose 30 ml BID PO 11/12/24 10:00 Pantoprazole Sodium 40 mg BID IV 11/12/24 10:00 Norepinephrine Bitartrate 250 ml @ 3.75 mls/hr Q24H IV 11/12/24 05:00 11/12/24 05:00 3.75 MLS/HR Examination General examination- patient is on sedation, on mechanical ventilation HEENT- PEERLA, no acute nasal discharge Cardiovascular- S1-S2 audible, rate and rhythm regular, no murmur Respiratory- CTAB, no wheeze or rhonchi Gastrointestinal-nontender, bowel sound+. Abdomen distended, 1+ Musculoskeletal-no acute joint swelling or tenderness or redness# Lower extremity- no leg edema Neurological- patient on sedation, details could not be done Skin- no acute rash or purpura laboratory and microbiology Laboratory Tests 11/12/24 03:15 Test 11/12/24 03:15 Range/Units Serum Glucose 130 H 74-106 mg/dL Problem List/Assessment/Plan Problem List/Assessment/Plan Assessment-patient is 29 years old male with a history of cirrhosis of liver due to alcoholism/hypertension came with recurrent hospitalization with history of recurrent paracentesis due to melena and ascites was brought into the hospital due to altered mental status and was to found have hepatic encephalopathy with altered mental status. Patient is intubated to maintain his airway due to altered mental status #Neurological -hepatic encephalopathy due to acute on chronic hepatic failure/septic shock -Patient on mechanical ventilation with sedation -continue current management #Cardiovascular Septic shock --History of hypertension -on Levophed -avoid dehydration and hepatology or nephrotoxic medications #Respiratory -Suspected Acute hypoxic respiratory failure. -On mechanical ventilation #Gastrointestinal -Acute on chronic decompensated liver failure due to alcoholic cirrhosis of liver -Cirrhosis of liver likely due to alcoholism -Malignant ascites -Suspected spontaneous bacterial peritonitis -constipation -Transaminitis likely due to acute on chronic hepatic failure -Splenomegaly -Cholelithiasis -continue lactulose as prescribed -plan is to have 3-4 bowel movement per day -continue rifaximin 550 mg via OG tube . b.i.d. -continue lactulose 30 mL q.6h #Genitourinary/Renal -alcoholic cirrhosis of the liver, MELD score 26, estimated 3 month mortality 19.6% -suspected hepatorenal syndrome likely due to acute decompensated hepatic failure -ANDRÉS likely due to VMN -mild hyponatremia likely delusional Avoid dehydration and hepatic or nephrotoxic medications Midodrine 10 mg via G-tube t.i.d. Continue vasopressin as prescribed #Infectious -suspected spontaneous bacterial peritonitis -septic shock -continue Zosyn as prescribed -by with G-tube b.i.d. #Hematological -moderate anemia likely due to hepatic failure/hypersplenism -thrombocytopenia likely due to prism/splenic sequestration -monitor CBC, any sign or symptom of bleeding #metabolic or endocrine disorder -Lactic acidosis likely due to hepatic failure/septic shock -metabolic acidosis -hyper ammonia -hypocalcemia -hypoalbuminemia #Skin/alimentary -Jaundice likely due to acute on chronic hepatic failure -avoid hepatic or nephrotoxic medication or dehydration Drips-fentanyl, Versed, norepinephrine, vasopressin Lines-right internal jugular vein central line was placed on 10/15/2024 ET tube placed on 10/14/2024 Goals of care/advance care planning Code status ; discussed with the patient >15 minutes PUD prophylaxis: SCD DVT prophylaxis: Pantoprazole Plan discussed with Dr. Montano , nursing staff, , father Total critical time spent on patient evaluation, chart review, assessment and plan, total critical time spent including monitoring mechanical ventilation 84 minutes Plan discussed with: Plan discussed with: Other (Father, RN) Date of Service: Nov 12, 2024 Billing Provider: DHEERAJ MONTANO MD Common Visit Codes: 40384-[id number] CARE 30-74 MIN, [id number] CARE-EACH +30MIN GUSTAVO SANTIZO RESIDENT Nov 12, 2024 08:22 DHEERAJ MONTANO MD Nov 13, 2024 15:46
[2024-11-12] MEDS: ALBUTEROL SULF 2.5 MG/0.5ML(0.5%) NEB SOLN NEB ONE (08:37)
[2024-11-12] MEDS ORDERED: SODIUM CHLORIDE 0.9% 250 ML IV ONE (09:00)
[2024-11-12] MEDS: SODIUM CHLORIDE 0.9% 250 ML IV ONE (09:45)
[2024-11-12] MEDS ORDERED: ENOXAPARIN SOD 40 MG/0.4 ML SYRINGE SC SCH (10:00)
[2024-11-12] MEDS: VASOPRESSIN 20 UNITS in SODIUM CHL 0.9% 99 ML IV SCH (10:20)
[2024-11-12] MEDS: PANTOPRAZOLE 40 MG/10 ML VIAL INJ IV SCH (10:55)
[2024-11-12] MEDS: LACTULOSE 20Gm/30ML SOLN PO SCH ×2 (10:55→18:49)
[2024-11-12] MEDS ORDERED: MIDODRINE HCL 10 MG TAB NG SCH (12:00)
[2024-11-12] MEDS: VANCOMYCIN 1GM/200ML PM 250 ML IV SCH (12:00)
[2024-11-12] MEDS: PIPERACILLIN-TAZOB 3.375GM 100 ML IV SCH (15:37)
[2024-11-12] MEDS: MIDODRINE HCL 10 MG TAB PO ONE (17:08)
[2024-11-12] MEDS: rifAXIMin 550 MG TAB PO ONE (17:08)
[2024-11-12] MEDS: LACTULOSE 20Gm/30ML SOLN NG ONE (17:45)
[2024-11-12] MEDS: rifAXIMin 550 MG TAB PO SCH (22:02)
[2024-11-13] VITALS (112 sets, daily range): BP systolic 99–116; BP diastolic 61–75; PULSE 71–110; RESP 17–22; TEMP 97.3–99.1; O2SAT 10–100
[2024-11-13 04:16] LABS: Alanine Aminotransferase 33 U/L (7-40); Alkaline Phosphatase 108 U/L (46-116); Anion Gap 8 (5-15); BUN/Creatinine Ratio 25.2 (10.0-20.0); Potassium 4.7 mmol/L (3.5-5.1); Sodium 137 mmol/L (136-145); Total Protein 5.8 g/dL (5.7-8.2)
[2024-11-13 04:22] LABS: Albumin 2.7 g/dL (3.2-4.8); Aspartate Aminotransferase 58 U/L (13-40); Bilirubin, Total 5.5 mg/dL (0.2-1.0); Blood Urea Nitrogen 34 mg/dL (9-23); Calcium 8.6 mg/dL (8.7-10.4); Carbon Dioxide 19 mmol/L (20-31); Chloride 110 mmol/L (98-107); Glucose 118 mg/dL (74-106)
[2024-11-13 04:28] LABS: INR 1.71 (0.9-1.15); Prothrombin Time 17.2 sec (9.3-11.8)
[2024-11-13] MEDS: MIDODRINE HCL 10 MG TAB PO SCH (05:28)
[2024-11-13 07:16] LABS: Base Excess -5.9 mmol/L (-2.0-3.0)
[2024-11-13] MEDS: LACTULOSE 20Gm/30ML SOLN NG STA (10:05)
[2024-11-13 10:56] LABS: Glucose, Body Fluid 125 mg/dL (.); LD, Body Fluid 23 IU/L (.)
[2024-11-13 11:06] LABS: Basophils # (auto) 0 10 ^3/uL (0-0.2); Eosinophils # (auto) 0.3 10 ^3/uL (0-0.8); Lymphocytes # (auto) 0.5 10 ^3/uL (0.4-5.4); Monocytes # (auto) 0.5 10 ^3/uL (0-1.3); Neutrophils # (auto) 1.6 10 ^3/uL (1.6-8.6); Platelet Count (auto) 50 10^3/uL (140-450)
[2024-11-13 11:09] LABS: Basophils % (auto) 0.2 % (0.0-2.0); Eosinophils % (auto) 9.2 % (0.0-7.0); Hematocrit 17.6 % (41.0-53.0); Lymphocytes % (auto) 17.4 % (10.0-50.0); Mean Corpuscular Hemoglobin 29.9 pg (28.0-32.0); Mean Corpuscular Hgb Conc. 32.5 g/dL (32.0-36.0); Monocytes % (auto) 17.2 % (0.0-12.0); Red Blood Cells 1.91 10^6/uL (4.5-5.90); White Blood Cell 2.8 10^3/uL (4.4-10.8)
[2024-11-13 11:46] LABS: Red Cell Distribution Width 25.1 % (11.8-14.3)
[2024-11-13 11:48] LABS: Hemoglobin 5.7 g/dL (13.5-17.5)
[2024-11-13 12:14] LABS: Anisocytosis Moderate; Platelet Estimate Decreased
[2024-11-13 12:16] LABS: Target Cell FEW
--- NOTE | 2024-11-13 12:36 | DVHPNRES ---
Progress Note Date Seen: Nov 13, 2024 Resident Creating Document: GUSTAVO SANTIZO Medical Necessity Reason Pt with a Central, PICC or Fol: Yes The following are medically ne: Central Line, Pool Catheter Subjective Review of Systems HPI-Patient is 29 years old male with past medical history of cirrhosis of liver due to alcoholism, hypertension, history of recurrent hospitalization, history of recurrent paracentesis due to malignant ascites was admitted to the hospital due to altered mental status. Patient was brought in by the family due to altered mental status for last 5 days which was getting worse lately. Father patient had some vomiting but no blood. Patient's abdominal of the getting bigger as per father. Patient was recently discharged from [facility] on 11/06/2024. On arrival patient was on altered mental status with suspected metabolic encephalopathy. Patient was intubated to maintain his airway. Initial lab workup revealed WBC 4.9, hemoglobin 8.8, platelet 97, sodium 132, potassium 5.2, normal anion gap 7 BUN 37, serum creatinine 1.68, limit lactic acidosis with lactic acid 3.1> 3.9> 4.2, calcium 8.4, magnesium 2.2, serum bilirubin 4.1, AST 98, ALT 48, alkaline phosphatase 165, ammonia 152, albumin 2.3, analysis not significant for UTI, INR 1.59, CXR no acute cardiopulmonary disease. Patient has had paracentesis and 4.5 L of fluid was removed with a aseptic precaution. Central line was placed in the right internal jugular vein. Patient was recently hospitalized intubated on 10/25/2024 and extubated on 11/01/2024. S/p paracentesis on 10/28/24 - 2.1 liters of ascitic fluid were drained. See separate procedure note for details. S/p 5.2 L paracentesis done on 11/05/2024 Ascitic fluid cultures grew Staph epidermidis E coli septicemia On 10/25/2024 blood culture revealed E coli- sensitive to Levaquin On 10/26/2024 body fluid grew Staphylococcus epidermidis-sensitive to Levaquin CT SCAN -on 10/25/2024 revealed cirrhosis of liver, splenomegaly, cholelithiasis. Patient had paracentesis on 10/21/2024, 10/15/2024, 02/01/25, 11/05/24- On 11/13/2024 Patient was seen today for clinical evaluation. Labs and chart reviewed. Patient is on mechanical ventilation, on sedation Lab workup revealed Patient developing pancytopenia Leukopenia WBC 4.9>> 5.7 >2.8 Severe anemia with a hemoglobin 8.8> 8.1,> 5.7 Ordered 1 units of packed cell volume transfusion, followed by repeat H&H. thrombocytopenia with platelet 97> 98> 50 Sodium 132 >132> 137, Potassium > 5.2 5.4> 4.8> 4.2 elevated serum creatinine 1.68> 1.73> 1.35, BUN 37> 38> 34, Acidosis resolved 3.1> 3.9> 4.2?> 3.4> 1.7 INR 1.59> 1.70> 1.71 hyperammonia improving 152> 141>45 transaminitis with serum total bilirubin 4.1> 4.1> 5.5, AST-98>79> 58, ALT> 43> 38, alkaline phosphatase 165> 143>108, ,, hypoalbuminemia with albumin 2.3> 2.0> 2.7 -ABG revealed metabolic acidosis with respiratory compensation 11/12/2024 Patient had paracentesis of 4.5 L of fluid early in the morning on midodrine 10 mg p.o. t.i.d., rifaximin 550 mg p.o. b.i.d. Continue lactulose to 30 mL q.6h -respiratory culture so far normal oropharyngeal rebekah -blood culture no growth so far -MRSA screening negative -urine culture preliminary no growth so far Cardiovascular Surgical Tech spoke to patient's father Mr. Caceres, [phone], discussed patient's current medical condition, plan of care and answered his question, Patient's father is asking for hospice care. Social service consult for hospice care evaluation in place Objective vital signs Vital Sign Date Time Temp Pulse Resp B/P (MAP) Pulse Ox O2 Delivery O2 Flow Rate FiO2 11/13/24 12:01 91 18 106/64 (78) 100 30 11/13/24 08:00 98.8 98.8 11/13/24 06:00 Mechanical Ventilator+ 11/11/24 22:36 0 Total Intake and Output 11/12/24 11/12/24 11/13/24 15:00 23:00 07:00 Intake Total 810.25 ml 611.25 ml 812.25 ml Output Total 175 ml 450 ml 300 ml Balance 635.25 ml 161.25 ml 512.25 ml medications Current Medications Medications Dose Ordered Sig/Gretchen Route Start Time Stop Time Status Last Admin Dose Admin Midazolam HCl 50 ml @ 1 mls/hr Q24H IV 11/11/24 23:30 11/13/24 11:56 9 MLS/HR Vancomycin HCl 0 ml @ 0 mls/hr UD IV 11/12/24 03:15 Piperacillin Sod/ Tazobactam Sod 100 ml @ 25 mls/hr Q8HR IV 11/12/24 14:00 11/13/24 05:45 25 MLS/HR Fentanyl Citrate 250 ml @ 2.5 mls/hr Q24H IV 11/12/24 05:00 11/13/24 05:48 10 MLS/HR Pantoprazole Sodium 40 mg BID IV 11/12/24 10:00 11/13/24 09:15 40 MG Norepinephrine Bitartrate 250 ml @ 3.75 mls/hr Q24H IV 11/12/24 05:00 11/13/24 01:40 22.5 MLS/HR Vancomycin HCl 250 ml @ 200 mls/hr Q16H IV 11/12/24 12:00 11/13/24 03:59 200 MLS/HR Vasopressin 20 units/Sodium Chloride 100 ml @ 9 mls/hr Q11H7M IV 11/12/24 09:45 11/13/24 07:31 9 MLS/HR Lactulose 30 ml Q6HR PO 11/12/24 18:00 11/13/24 11:56 30 ML Midodrine 10 mg TID@0600,1200,1800 PO 11/13/24 06:00 11/13/24 11:56 10 MG Rifaximin 550 mg BID PO 11/12/24 22:00 11/13/24 09:15 550 MG Polyethylene Glycol 17 gm DAILYPRN PRN PO 11/13/24 12:15 Examination General examination- patient is on sedation, on mechanical ventilation HEENT- PEERLA, no acute nasal discharge Cardiovascular- S1-S2 audible, rate and rhythm regular, no murmur Respiratory- CTAB, no wheeze or rhonchi Gastrointestinal-nontender, bowel sound+. Abdomen distended, 1+ Musculoskeletal-no acute joint swelling or tenderness or redness# Lower extremity- no leg edema Neurological- patient on sedation, details could not be done Skin- no acute rash or purpura laboratory and microbiology Laboratory Tests 11/13/24 10:51 11/13/24 03:35 Test 11/13/24 03:35 Range/Units Serum Glucose 118 H 74-106 mg/dL Microbiology Date/Time Source Procedure Growth Status 11/12/24 03:52 Voided Urine Urine Culture - Preliminary Resulted 11/12/24 03:30 Blood Blood Culture - Preliminary NO GROWTH AFTER 24 HOURS OF INCUBATION. Resulted Problem List/Assessment/Plan Problem List/Assessment/Plan Assessment-patient is 29 years old male with a history of cirrhosis of liver due to alcoholism/hypertension came with recurrent hospitalization with history of recurrent paracentesis due to melena and ascites was brought into the hospital due to altered mental status and was to found have hepatic encephalopathy with altered mental status. Patient is intubated to maintain his airway due to altered mental status #Neurological -hepatic encephalopathy due to acute on chronic hepatic failure/septic shock -Patient on mechanical ventilation with sedation -continue current management --respiratory culture so far normal oropharyngeal rebekah -blood culture no growth so far -MRSA screening negative -urine culture preliminary no growth so far #Cardiovascular Septic shock ?SBP --History of hypertension -on Levophed -avoid dehydration and hepatology or nephrotoxic medications #Respiratory -Suspected Acute hypoxic respiratory failure. -On mechanical ventilation -respiratory culture so far normal oropharyngeal rebekah -blood culture no growth so far -MRSA screening negative -urine culture preliminary no growth so far #Gastrointestinal -Acute on chronic decompensated liver failure due to alcoholic cirrhosis of liver -Cirrhosis of liver likely due to alcoholism -Malignant ascites -Suspected spontaneous bacterial peritonitis -constipation -Transaminitis likely due to acute on chronic hepatic failure -Splenomegaly -Cholelithiasis -abdominal hernia -respiratory culture so far normal oropharyngeal rebekah -blood culture no growth so far -MRSA screening negative -urine culture preliminary no growth so far -continue lactulose as prescribed -plan is to have 3-4 bowel movement per day -continue rifaximin 550 mg via OG tube . b.i.d. -continue lactulose 30 mL q.6h #Genitourinary/Renal -alcoholic cirrhosis of the liver, MELD score 26, estimated 3 month mortality 19.6% -suspected hepatorenal syndrome likely due to acute decompensated hepatic failure -ANDRÉS likely due to VMN -mild hyponatremia likely delusional Avoid dehydration and hepatic or nephrotoxic medications Midodrine 10 mg via G-tube t.i.d. Continue vasopressin as prescribed #Infectious -suspected spontaneous bacterial peritonitis -septic shock -continue Zosyn as prescribed -by with OG-tube b.i.d. #Hematological -Severe anemia likely due to hepatic failure/hypersplenism -thrombocytopenia likely due to prism/splenic sequestration -monitor CBC, any sign or symptom of bleeding -ordered 1 units of blood transfusion, repeat H&H Pool's branches fusion #metabolic or endocrine disorder -Lactic acidosis likely due to hepatic failure/septic shock -metabolic acidosis -hyper ammonia -hypocalcemia -hypoalbuminemia #Skin/alimentary -Jaundice likely due to acute on chronic hepatic failure -avoid hepatic or nephrotoxic medication or dehydration Drips-fentanyl, Versed, norepinephrine, vasopressin Lines-right internal jugular vein central line was placed on 10/15/2024 ET tube placed on 10/14/2024 Goals of care/advance care planning Code status ; discussed with the patient >15 minutes PUD prophylaxis: SCD DVT prophylaxis: Pantoprazole Plan discussed with Dr. Montano , nursing staff, , father Total critical time spent on patient evaluation, chart review, assessment and plan, total critical time spent including monitoring mechanical ventilation 83 minutes Plan discussed with: Other (FATHER, RN) My Orders My Orders Orders - GUSTAVO SANTIZO RESIDENT Procedure Category Date Status Time * Historian Research Assistant CONS 11/12/24 Transmitted Consult Body Fluids, Diff. LAB 11/12/24 Logged Cell Count 21:59 Abg W/ Co-Ox RT 11/13/24 Logged 06:38 Polyethylene Glycol PHA 11/13/24 In Process 17g Powder (Miralax 12:15 Dietary Evaluation Review Recommendations by RD: Protein Supplementation, PPN/TPN Comments: 1) Consider EN Vital AF 1.2Cal @ 55ml/hr, Start @ 30ml/hr increase 10ml/hr Q4H until goal is reached. water flush 50ml Q4H if allowed. 2) Consider TPN/PN if GI is not accessible 3) Advance diet as medically feasible 4) Continue current plan of care Expected Outcomes/Goals: Pt will meet >75% estimated needs Fu 2-3 days Interpretation of weight loss: >7.5% in 3 months Fluid Accumulation (Severe): Moderate Fluid Retention Protein Calorie Malnutrition: Severe Is there a minimum of two crit: Yes Date of Service: Nov 14, 2024 Billing Provider: DHEERAJ MONTANO MD Common Visit Codes: 82440-[id number] CARE 30-74 MIN, [id number] CARE-EACH +30MIN GUSTAVO SANTIZO RESIDENT Nov 13, 2024 12:36 DHEERAJ MONTANO MD Nov 14, 2024 13:59
[2024-11-13 13:07] LABS: Albumin, Body Fluid <0.2 g/dL (Not Estab.)
[2024-11-13] MEDS: METOCLOPRAMIDE HCL 5MG/ml INJ 2ml VIAL IV ONE (14:14)
[2024-11-13] MEDS: POLYETHYLENE GLYCOL 17 GM PWDR PO ONE (14:14)
--- NOTE | 2024-11-13 14:42 | DVH ---
CHEST RADIOGRAPH Indication: PNA Technique: Single frontal view of the chest was obtained COMPARISON: XY CHEST XRAY 1 VIEW on DOS: 11/12/24, XY CHEST XRAY 1 VIEW on DOS: 11/12/24, XY CHEST PORT ABLE on DOS: 11/11/24, XY CHEST PORTABLE on DOS: 11/02/24, XY CHEST PORTABLE on DOS: 11/01/24 FINDINGS: Lines and Tubes: Endotracheal tube is low in position. Enteric catheter and right central venous cath eter in satisfactory position. Lungs: Pulmonary vascular congestion Pleura: No effusion. No pneumothorax. Cardiomediastinal contours: Unremarkable Bones: Unremarkable IMPRESSION: Recommend retraction of endotracheal tube by 1 cm.
[2024-11-13 18:52] LABS: Hematocrit 20.1 % (41.0-53.0)
[2024-11-13 18:58] LABS: Hemoglobin 6.5 g/dL (13.5-17.5)
[2024-11-13 21:02] LABS: Basophils # (auto) 0 10 ^3/uL (0-0.2); Basophils % (auto) 0.4 % (0.0-2.0); Eosinophils # (auto) 0.2 10 ^3/uL (0-0.8); Eosinophils % (auto) 9.9 % (0.0-7.0); Hematocrit 20.5 % (41.0-53.0); Lymphocytes # (auto) 0.5 10 ^3/uL (0.4-5.4); Lymphocytes % (auto) 19.6 % (10.0-50.0); Mean Corpuscular Hemoglobin 29.1 pg (28.0-32.0); Mean Corpuscular Volume 90.9 fL (80.0-100.0); Monocytes # (auto) 0.4 10 ^3/uL (0-1.3); Monocytes % (auto) 17.6 % (0.0-12.0); Neutrophils # (auto) 1.2 10 ^3/uL (1.6-8.6); Neutrophils % (auto) 52.5 % (37.0-80.0); Nucleated Red Blood Cells % 0.2 %; Platelet Count (auto) 47 10^3/uL (140-450); Red Blood Cells 2.25 10^6/uL (4.5-5.90); White Blood Cell 2.3 10^3/uL (4.4-10.8)
[2024-11-13 21:03] LABS: Hemoglobin 6.6 g/dL (13.5-17.5); Red Cell Distribution Width 25.5 % (11.8-14.3)
[2024-11-13 21:14] LABS: INR 1.7 (0.9-1.15); Prothrombin Time 17.1 sec (9.3-11.8)
[2024-11-14] VITALS (108 sets, daily range): BP systolic 88–113; BP diastolic 52–76; PULSE 63–80; RESP 18–24; TEMP 96.8–99.1; O2SAT 93–100
[2024-11-14 01:13] LABS: Hemoglobin 7.3 g/dL (13.5-17.5)
[2024-11-14 05:09] LABS: Basophils # (auto) 0 10 ^3/uL (0-0.2); Eosinophils # (auto) 0.2 10 ^3/uL (0-0.8); Hematocrit 22.4 % (41.0-53.0); Hemoglobin 7.3 g/dL (13.5-17.5); Lymphocytes # (auto) 0.5 10 ^3/uL (0.4-5.4); Lymphocytes % (auto) 22.2 % (10.0-50.0); White Blood Cell 2.1 10^3/uL (4.4-10.8)
[2024-11-14 05:12] LABS: Basophils % (auto) 0.5 % (0.0-2.0); Mean Corpuscular Hemoglobin 29.8 pg (28.0-32.0); Mean Corpuscular Hgb Conc. 32.6 g/dL (32.0-36.0); Mean Corpuscular Volume 91.5 fL (80.0-100.0); Monocytes # (auto) 0.4 10 ^3/uL (0-1.3); Monocytes % (auto) 16.7 % (0.0-12.0); Neutrophils % (auto) 49.6 % (37.0-80.0); Nucleated Red Blood Cells % 0.2 %; Platelet Count (auto) 42 10^3/uL (140-450); Red Blood Cells 2.45 10^6/uL (4.5-5.90)
--- NOTE | 2024-11-14 05:18 | DVH ---
EXAM: XR Chest, 1 View CLINICAL INDICATION: PNA TECHNIQUE: Frontal view of the chest. COMPARISON: XY CHEST PORTABLE on DOS: 11/13/24, XY CHEST XRAY 1 VIEW on DOS: 11/12/24, XY CHEST XRAY 1 VIEW on DOS: 11/12/24, XY CHEST PORTABLE on DOS: 11/11/24, XY CHEST PORTABLE on DOS: 11/02/24 FINDINGS: LUNGS AND PLEURAL SPACES: Bibasilar atelectasis or pneumonia. No pneumothorax. HEART: Unremarkable. No cardiomegaly. MEDIASTINUM: Unremarkable. Normal mediastinal contour. BONES/JOINTS: Unremarkable. No acute fracture. TUBES, LINES AND DEVICES: Stable tubes and lines. OTHER FINDINGS: . IMPRESSION: Bibasilar atelectasis or pneumonia.
[2024-11-14 05:24] LABS: Red Cell Distribution Width 24.3 % (11.8-14.3)
[2024-11-14 05:25] LABS: Alanine Aminotransferase 28 U/L (7-40); Alkaline Phosphatase 103 U/L (46-116); Anion Gap 6 (5-15); BUN/Creatinine Ratio 23.5 (10.0-20.0); Blood Urea Nitrogen 19 mg/dL (9-23); Carbon Dioxide 22 mmol/L (20-31); Glucose 102 mg/dL (74-106); Potassium 4.3 mmol/L (3.5-5.1); Sodium 138 mmol/L (136-145)
[2024-11-14 05:47] LABS: Albumin 2.4 g/dL (3.2-4.8); Aspartate Aminotransferase 52 U/L (13-40); Bilirubin, Total 8.5 mg/dL (0.2-1.0); Calcium 8.6 mg/dL (8.7-10.4); Chloride 110 mmol/L (98-107); Total Protein 5.4 g/dL (5.7-8.2)
[2024-11-14 06:31] LABS: Anisocytosis Moderate; Large Platelets FEW; Ovalocytes FEW; Platelet Estimate Decreased
[2024-11-14 07:06] LABS: Base Excess -3.3 mmol/L (-2.0-3.0)
--- NOTE | 2024-11-14 08:34 | DVH ---
Date: 11/14/2024 07:40 AM Examination: XY KUB ABDOMEN SINGLE VIEW History: pain Comparison: None TECHNIQUE: Frontal views of the abdomen was obtained. FINDINGS: Bowel gas pattern is unremarkable. Enteric tube projects over the expected region of the stomach. Lung bases are collimated from field of view. No acute osseous abnormality identified. Catheter projects over the pelvis. IMPRESSION: Nonobstructive bowel gas pattern. Enteric tube in appropriate position.
[2024-11-14 08:49] LABS: INR 1.76 (0.9-1.15); Prothrombin Time 17.6 sec (9.3-11.8)
--- NOTE | 2024-11-14 11:42 | DVH ---
ULTRASOUND ABDOMEN limited, 4 QUADRANTS INDICATION: FLUID CHECK FOR POSSIBLE PARACENTESIS Evaluate for ascites. TECHNIQUE: The four quadrants of the abdomen were scanned in benites-scale to assess for the presence of ascites. N o solid organ assessment was performed. FINDINGS/IMPRESSIONS: Small volume ascites is visualized in all 4 quadrants of the abdomen.
[2024-11-14] MEDS: LACTULOSE 20Gm/30ML SOLN PO SCH (15:08)
--- NOTE | 2024-11-14 16:35 | DVHPNRES ---
Progress Note Date Seen: Nov 14, 2024 Resident Creating Document: GUSTAVO SANTIZO Medical Necessity Reason Pt with a Central, PICC or Fol: Yes The following are medically ne: Central Line, Pool Catheter Subjective Review of Systems HPI-Patient is 29 years old male with past medical history of cirrhosis of liver due to alcoholism, hypertension, history of recurrent hospitalization, history of recurrent paracentesis due to malignant ascites was admitted to the hospital due to altered mental status. Patient was brought in by the family due to altered mental status for last 5 days which was getting worse lately. Father patient had some vomiting but no blood. Patient's abdominal of the getting bigger as per father. Patient was recently discharged from [facility] on 11/06/2024. On arrival patient was on altered mental status with suspected metabolic encephalopathy. Patient was intubated to maintain his airway. Initial lab workup revealed WBC 4.9, hemoglobin 8.8, platelet 97, sodium 132, potassium 5.2, normal anion gap 7 BUN 37, serum creatinine 1.68, limit lactic acidosis with lactic acid 3.1> 3.9> 4.2, calcium 8.4, magnesium 2.2, serum bilirubin 4.1, AST 98, ALT 48, alkaline phosphatase 165, ammonia 152, albumin 2.3, analysis not significant for UTI, INR 1.59, CXR no acute cardiopulmonary disease. Patient has had paracentesis and 4.5 L of fluid was removed with a aseptic precaution. Central line was placed in the right internal jugular vein. Patient was recently hospitalized intubated on 10/25/2024 and extubated on 11/01/2024. S/p paracentesis on 10/28/24 - 2.1 liters of ascitic fluid were drained. See separate procedure note for details. S/p 5.2 L paracentesis done on 11/05/2024 Ascitic fluid cultures grew Staph epidermidis E coli septicemia On 10/25/2024 blood culture revealed E coli- sensitive to Levaquin On 10/26/2024 body fluid grew Staphylococcus epidermidis-sensitive to Levaquin CT SCAN -on 10/25/2024 revealed cirrhosis of liver, splenomegaly, cholelithiasis. Patient had paracentesis on 10/21/2024, 10/15/2024, 02/01/25, 11/05/24- On 11/14/2024 Patient was seen today for clinical evaluation. Labs and chart reviewed. Patient's code status changed to DNR Patient's father agreed for hospice care, process going on Patient is on mechanical ventilation, on sedation, requiring pressors Patient had 2 units of packed RBC transferred yesterday for severe anemia. Lab workup revealed Patient with pancytopenia Leukopenia WBC 4.9>> 5.7 >2.8> 2.1 hemoglobin 8.8> 8.1,> 5.7> 7.3 thrombocytopenia with platelet 97> 98> 50> 42 Sodium 132 >132> 137> 138 Potassium > 5.2 5.4> 4.8> 4.2> 4.3 elevated serum creatinine 1.68> 1.73> 1.35> 0.81 BUN 37> 38> 34> 19 Acidosis resolved 3.1> 3.9> 4.2?> 3.4> 1.7 INR 1.59> 1.70> 1.71> 0.76 Ammonia 152> 141>45> 52 transaminitis with serum total bilirubin 4.1> 4.1> 5.5> 8.5, AST-98>79> 58> 52, ALT> 43> 38> 28, alkaline phosphatase 165> 143>108> 103, ,, hypoalbuminemia with albumin 2.3> 2.0> 2.7> 2.4 -ABG revealed metabolic acidosis with respiratory compensation 11/12/2024 Patient had paracentesis of 4.5 L of fluid early in the morning on midodrine 10 mg p.o. t.i.d., rifaximin 550 mg p.o. b.i.d. Increase lactulose to lactulose to 30 mL q.4h -respiratory culture so far normal oropharyngeal rebekah -blood culture no growth -MRSA screening negative -urine culture preliminary no growth Mechanical Engineering Intern spoke to patient's father Mr. Caceres, [phone], discussed patient's current medical condition, plan of care and answered his question, Patient's father is asking for hospice care. Social service consult for hospice care evaluation in place Objective vital signs Vital Sign Date Time Temp Pulse Resp B/P (MAP) Pulse Ox O2 Delivery O2 Flow Rate FiO2 11/14/24 15:45 98.8 66 18 104/69 (81) 99 209.8 11/14/24 14:05 30 11/14/24 14:00 Mechanical Ventilator+ Total Intake and Output 11/13/24 11/13/24 11/14/24 15:00 23:00 07:00 Intake Total 379.00 ml 1289.00 ml 797.25 ml Output Total 900 ml 650 ml Balance 379.00 ml 389.00 ml 147.25 ml medications Current Medications Medications Dose Ordered Sig/Gretchen Route Start Time Stop Time Status Last Admin Dose Admin Midazolam HCl 50 ml @ 1 mls/hr Q24H IV 11/11/24 23:30 11/14/24 13:37 10 MLS/HR Vancomycin HCl 0 ml @ 0 mls/hr UD IV 11/12/24 03:15 Piperacillin Sod/ Tazobactam Sod 100 ml @ 25 mls/hr Q8HR IV 11/12/24 14:00 11/14/24 13:29 25 MLS/HR Fentanyl Citrate 250 ml @ 2.5 mls/hr Q24H IV 11/12/24 05:00 11/14/24 11:38 25 MLS/HR Pantoprazole Sodium 40 mg BID IV 11/12/24 10:00 11/14/24 08:59 40 MG Norepinephrine Bitartrate 250 ml @ 3.75 mls/hr Q24H IV 11/12/24 05:00 11/14/24 15:07 11.25 MLS/HR Vancomycin HCl 250 ml @ 200 mls/hr Q16H IV 11/12/24 12:00 11/14/24 11:28 200 MLS/HR Midodrine 10 mg TID@0600,1200,1800 PO 11/13/24 06:00 11/14/24 11:27 10 MG Rifaximin 550 mg BID PO 11/12/24 22:00 11/14/24 08:59 550 MG Polyethylene Glycol 17 gm DAILYPRN PRN PO 11/13/24 12:15 Lactulose 30 ml Q4HR PO 11/14/24 14:00 11/14/24 15:08 30 ML Examination General examination- patient is on sedation, on mechanical ventilation HEENT- PEERLA, no acute nasal discharge Cardiovascular- S1-S2 audible, rate and rhythm regular, no murmur Respiratory- CTAB, no wheeze or rhonchi Gastrointestinal-nontender, bowel sound+. Abdomen distended, 1+ Musculoskeletal-no acute joint swelling or tenderness or redness# Lower extremity- no leg edema Neurological- patient on sedation, details could not be done Skin- no acute rash or purpura laboratory and microbiology Laboratory Tests 11/14/24 04:48 Test 11/14/24 04:48 Range/Units Serum Glucose 102 74-106 mg/dL Microbiology Date/Time Source Procedure Growth Status 11/13/24 04:35 Nose MRSA Screen - Final Complete 11/12/24 03:52 Voided Urine Urine Culture - Final Complete 11/12/24 03:30 Blood Blood Culture - Preliminary NO GROWTH AFTER 48 HOURS OF INCUBATION. Resulted 11/12/24 01:20 Peritoneal Fluid Gram Stain - Final Resulted 11/12/24 01:20 Peritoneal Fluid Body Fluid Culture - Preliminary Resulted Problem List/Assessment/Plan Problem List/Assessment/Plan Assessment-patient is 29 years old male with a history of cirrhosis of liver due to alcoholism/hypertension came with recurrent hospitalization with history of recurrent paracentesis due to melena and ascites was brought into the hospital due to altered mental status and was to found have hepatic encephalopathy with altered mental status. Patient is intubated to maintain his airway due to altered mental status #Neurological -hepatic encephalopathy due to acute on chronic hepatic failure/septic shock -Patient on mechanical ventilation with sedation -continue current management --respiratory culture - normal oropharyngeal rebekah -blood culture no growth -MRSA screening negative -urine culture-negative #Cardiovascular Septic shock --History of hypertension -on Levophed -avoid dehydration and hepatology or nephrotoxic medications #Respiratory -Suspected Acute hypoxic respiratory failure. -On mechanical ventilation -respiratory culture - normal oropharyngeal rebekah -blood culture -negative -MRSA screening negative -urine culture-no growth #Gastrointestinal -Acute on chronic decompensated liver failure due to alcoholic cirrhosis of liver -Cirrhosis of liver likely due to alcoholism -Malignant ascites -Suspected spontaneous bacterial peritonitis -constipation -Transaminitis likely due to acute on chronic hepatic failure -Splenomegaly -Cholelithiasis -abdominal hernia --respiratory culture so far normal oropharyngeal rebekah -blood culture -negative -MRSA screening negative -urine culture-no growth -continue lactulose as prescribed -plan is to have 3-4 bowel movement per day -continue rifaximin 550 mg via OG tube . b.i.d. -continue lactulose 30 mL q.4h #Genitourinary/Renal -alcoholic cirrhosis of the liver, MELD score 26, estimated 3 month mortality 19.6% -suspected hepatorenal syndrome likely due to acute decompensated hepatic failure -ANDRÉS likely due to VMN -mild hyponatremia likely delusional Avoid dehydration and hepatic or nephrotoxic medications Midodrine 10 mg via G-tube t.i.d. Continue vasopressin as prescribed #Infectious -suspected spontaneous bacterial peritonitis -septic shock -continue Zosyn and vancomycin as prescribed -by with OG-tube b.i.d. #Hematological -Severe anemia likely due to hepatic failure/hypersplenism -thrombocytopenia likely due to prism/splenic sequestration -monitor CBC, any sign or symptom of bleeding -status post 2 units of packed blood cell blood transfusion #metabolic or endocrine disorder -Lactic acidosis likely due to hepatic failure/septic shock -metabolic acidosis -hyper ammonia -hypocalcemia -hypoalbuminemia #Skin/alimentary -Jaundice likely due to acute on chronic hepatic failure -avoid hepatic or nephrotoxic medication or dehydration Drips-fentanyl, Versed, norepinephrine, vasopressin Lines-right internal jugular vein central line was placed on 10/15/2024 ET tube placed on 10/14/2024 Goals of care/advance care planning Code status -DNR ; discussed with Father >15 minutes PUD prophylaxis: SCD DVT prophylaxis: Pantoprazole Plan discussed with Dr. Montano , nursing staff, , father- wishes dnr status Total critical time spent on patient evaluation, chart review, assessment and plan, total critical time spent including monitoring mechanical ventilation 83 minutes Plan discussed with: Other (RN, Ftaher ) My Orders My Orders Orders - GUSTAVO SANTIZO RESIDENT Procedure Category Date Status Time Magnesium Sulfate ORDERS 11/14/24 Transmitted 04:00 Chest Portable XY 11/14/24 Resulted 04:00 Abg W/ Co-Ox RT 11/14/24 Logged 07:00 Kub Abdomen Single XY 11/14/24 Resulted View 07:03 * Radiologist Consult CONS 11/14/24 Transmitted 10:02 Vasopressin-Sodium PHA 11/14/24 In Process Chloride (Vasopressin 14:00 Dietary Evaluation Review Recommendations by RD: Protein Supplementation, PPN/TPN Comments: 1) Consider EN Vital AF 1.2Cal @ 55ml/hr, Start @ 30ml/hr increase 10ml/hr Q4H until goal is reached. water flush 50ml Q4H if allowed. 2) Consider TPN/PN if GI is not accessible 3) Advance diet as medically feasible 4) Continue current plan of care Expected Outcomes/Goals: Pt will meet >75% estimated needs Fu 2-3 days Interpretation of weight loss: >7.5% in 3 months Fluid Accumulation (Severe): Moderate Fluid Retention Protein Calorie Malnutrition: Severe Is there a minimum of two crit: Yes Date of Service: Nov 15, 2024 Billing Provider: DHEERAJ MONTANO MD Common Visit Codes: [id number] CARE 30-74 MIN, [id number] CARE-EACH +30MIN GUSTAVO SANTIZO RESIDENT Nov 14, 2024 16:35 DHEERAJ MONTANO MD Nov 15, 2024 11:44
[2024-11-14] MEDS: [UNRECOGNIZED DRUG - OTHER] IV SCH (16:42)
[2024-11-15] VITALS (112 sets, daily range): BP systolic 96–116; BP diastolic 62–84; PULSE 59–81; RESP 14–20; TEMP 97–99.1; O2SAT 91–100
[2024-11-15] MEDS: POLYETHYLENE GLYCOL 17 GM PWDR PO PRN (02:40)
[2024-11-15 04:08] LABS: Alanine Aminotransferase 29 U/L (7-40); Alkaline Phosphatase 97 U/L (46-116); Anion Gap 8 (5-15); BUN/Creatinine Ratio 26.6 (10.0-20.0); Blood Urea Nitrogen 17 mg/dL (9-23); Carbon Dioxide 21 mmol/L (20-31); Glucose 94 mg/dL (74-106); Potassium 4.2 mmol/L (3.5-5.1); Sodium 139 mmol/L (136-145)
[2024-11-15 04:12] LABS: Albumin 2.3 g/dL (3.2-4.8); Aspartate Aminotransferase 62 U/L (13-40); Bilirubin, Total 8.6 mg/dL (0.2-1.0); Calcium 8.5 mg/dL (8.7-10.4); Chloride 110 mmol/L (98-107); INR 1.78 (0.9-1.15); Prothrombin Time 17.8 sec (9.3-11.8); Total Protein 5.4 g/dL (5.7-8.2)
[2024-11-15 04:15] LABS: Basophils # (auto) 0 10 ^3/uL (0-0.2); Basophils % (auto) 0.3 % (0.0-2.0); Eosinophils # (auto) 0.2 10 ^3/uL (0-0.8); Hemoglobin 7.6 g/dL (13.5-17.5); Lymphocytes # (auto) 0.5 10 ^3/uL (0.4-5.4); Monocytes # (auto) 0.3 10 ^3/uL (0-1.3); Neutrophils # (auto) 1.3 10 ^3/uL (1.6-8.6); Platelet Count (auto) 45 10^3/uL (140-450); Red Cell Distribution Width 24.1 % (11.8-14.3); White Blood Cell 2.3 10^3/uL (4.4-10.8)
[2024-11-15 04:17] LABS: Eosinophils % (auto) 8.9 % (0.0-7.0); Hematocrit 23.4 % (41.0-53.0); Lymphocytes % (auto) 21.9 % (10.0-50.0); Mean Corpuscular Hemoglobin 29.5 pg (28.0-32.0); Mean Corpuscular Hgb Conc. 32.3 g/dL (32.0-36.0); Mean Corpuscular Volume 91.3 fL (80.0-100.0); Monocytes % (auto) 13.3 % (0.0-12.0); Neutrophils % (auto) 55.6 % (37.0-80.0); Nucleated Red Blood Cells % 0.1 %; Red Blood Cells 2.56 10^6/uL (4.5-5.90)
[2024-11-15 05:39] LABS: Anisocytosis Slight
[2024-11-15 05:40] LABS: Large Platelets FEW
[2024-11-15 05:41] LABS: Ovalocytes FEW; Platelet Estimate Decrea
[2024-11-15 06:34] LABS: Base Excess -3.9 mmol/L (-2.0-3.0)
--- NOTE | 2024-11-15 06:47 | DVHPNRES ---
Progress Note Date Seen: Nov 15, 2024 Resident Creating Document: GUSTAVO SANTIZO Medical Necessity Reason Pt with a Central, PICC or Fol: Yes The following are medically ne: Central Line, Pool Catheter Subjective Review of Systems HPI-Patient is 29 years old male with past medical history of cirrhosis of liver due to alcoholism, hypertension, history of recurrent hospitalization, history of recurrent paracentesis due to malignant ascites was admitted to the hospital due to altered mental status. Patient was brought in by the family due to altered mental status for last 5 days which was getting worse lately. Father patient had some vomiting but no blood. Patient's abdominal of the getting bigger as per father. Patient was recently discharged from [facility] on 11/06/2024. On arrival patient was on altered mental status with suspected metabolic encephalopathy. Patient was intubated to maintain his airway. Initial lab workup revealed WBC 4.9, hemoglobin 8.8, platelet 97, sodium 132, potassium 5.2, normal anion gap 7 BUN 37, serum creatinine 1.68, limit lactic acidosis with lactic acid 3.1> 3.9> 4.2, calcium 8.4, magnesium 2.2, serum bilirubin 4.1, AST 98, ALT 48, alkaline phosphatase 165, ammonia 152, albumin 2.3, analysis not significant for UTI, INR 1.59, CXR no acute cardiopulmonary disease. Patient has had paracentesis and 4.5 L of fluid was removed with a aseptic precaution. Central line was placed in the right internal jugular vein. Patient was recently hospitalized intubated on 10/25/2024 and extubated on 11/01/2024. S/p paracentesis on 10/28/24 - 2.1 liters of ascitic fluid were drained. See separate procedure note for details. S/p 5.2 L paracentesis done on 11/05/2024 Ascitic fluid cultures grew Staph epidermidis E coli septicemia On 10/25/2024 blood culture revealed E coli- sensitive to Levaquin On 10/26/2024 body fluid grew Staphylococcus epidermidis-sensitive to Levaquin CT SCAN -on 10/25/2024 revealed cirrhosis of liver, splenomegaly, cholelithiasis. Patient had paracentesis on 10/21/2024, 10/15/2024, 02/01/25, 11/05/24- On 11/14/2024 Patient was seen today for clinical evaluation. Labs and chart reviewed. Patient is on mechanical ventilation, on sedation, on pressors Overnight patient's BP 95-113/65-75, pulse 64-71, temperature-98.1-98.6 Single organ ultrasound on 11/14/2024 revealed-Small volume ascites is visualized in all 4 quadrants of the abdomen. -ABG on 11/15/2024-PH 7.40, pCO2 32.7, PO2 91.5, bicarb 20.2, Intake output-intake 2666, output 650, positive balance 2015 Patient on fentanyl- , midazolam- , Levophed , vasopressin Patient had 2 units of packed RBC transferred on 11/13/2024 for severe anemia. Lab workup revealed Patient with pancytopenia Leukopenia WBC 4.9>> 5.7 >2.8> 02.1> 2.3 hemoglobin 8.8> 8.1,> 5.7> 7.3> 7.6 thrombocytopenia with platelet 97> 98> 50> 42> 45 Sodium 132 >132> 137> 138> 139 Potassium > 5.2 5.4> 4.8> 4.2> 4.3> 4.2 > Serum creatinine 1.68> 1.73> 1.35> 0.81> 0.64 BUN 37> 38> 34> 19> 17 Lactic Acidosis resolved 3.1> 3.9> 4.2?> 3.4> 1.7> 1.8 INR 1.59> 1.70> 1.71> 1.76> 1.78 Ammonia 152> 141>45> 52> 46 transaminitis with serum total bilirubin 4.1> 4.1> 5.5> 8.5> 8.6 AST-98>79> 58> 52, ALT> 43> 38> 28> 62> 29, alkaline phosphatase 165> 143>108> 103> 97, ,, hypoalbuminemia with albumin 2.3> 2.0> 2.7> 2.4> 0.3 11/12/2024 Patient had paracentesis of 4.5 L of fluid early in the morning Patient was seen by intervention radiologist for possible paracentesis. I nterventional radiologist refused to do paracentesis at this time due to low volume of ascites and also patient is on vasopressors Assistant Professor Of Business spoke to patient's father Mr. Caceres, [phone], discussed patient's current medical condition, plan of care and answered his question, Objective vital signs Vital Sign Date Time Temp Pulse Resp B/P (MAP) Pulse Ox O2 Delivery O2 Flow Rate FiO2 11/15/24 06:15 98.1 69 18 100/70 (80) 95 208.6 11/15/24 06:12 30 11/15/24 06:00 Mechanical Ventilator+ Total Intake and Output 11/14/24 11/14/24 11/15/24 15:00 23:00 07:00 Intake Total 1160.50 ml 655.00 ml 775.25 ml Output Total 350 ml 300 ml Balance 1160.50 ml 305.00 ml 475.25 ml medications Current Medications Medications Dose Ordered Sig/Gretchen Route Start Time Stop Time Status Last Admin Dose Admin Midazolam HCl 50 ml @ 1 mls/hr Q24H IV 11/11/24 23:30 11/15/24 04:26 13 MLS/HR Vancomycin HCl 0 ml @ 0 mls/hr UD IV 11/12/24 03:15 Piperacillin Sod/ Tazobactam Sod 100 ml @ 25 mls/hr Q8HR IV 11/12/24 14:00 11/15/24 05:39 25 MLS/HR Fentanyl Citrate 250 ml @ 2.5 mls/hr Q24H IV 11/12/24 05:00 11/15/24 05:43 27.5 MLS/HR Pantoprazole Sodium 40 mg BID IV 11/12/24 10:00 11/14/24 21:35 40 MG Norepinephrine Bitartrate 250 ml @ 3.75 mls/hr Q24H IV 11/12/24 05:00 11/14/24 15:07 11.25 MLS/HR Vancomycin HCl 250 ml @ 200 mls/hr Q16H IV 11/12/24 12:00 11/15/24 04:28 200 MLS/HR Midodrine 10 mg TID@0600,1200,1800 PO 11/13/24 06:00 11/15/24 05:39 10 MG Rifaximin 550 mg BID PO 11/12/24 22:00 11/14/24 21:35 550 MG Polyethylene Glycol 17 gm DAILYPRN PRN PO 11/13/24 12:15 11/15/24 02:40 17 GM Lactulose 30 ml Q4HR PO 11/14/24 14:00 11/15/24 05:38 30 ML Examination General examination- patient is on sedation, on mechanical ventilation HEENT- PEERLA, no acute nasal discharge Cardiovascular- S1-S2 audible, rate and rhythm regular, no murmur Respiratory- CTAB, no wheeze or rhonchi Gastrointestinal-nontender, bowel sound+. Abdomen distended, 1+ Musculoskeletal-no acute joint swelling or tenderness or redness# Lower extremity- no leg edema Neurological- patient on sedation, details could not be done Skin- no acute rash or purpura laboratory and microbiology Laboratory Tests 11/15/24 03:15 Test 11/15/24 03:15 Range/Units Serum Glucose 94 74-106 mg/dL Microbiology Date/Time Source Procedure Growth Status 11/13/24 04:35 Nose MRSA Screen - Final Complete 11/12/24 03:52 Voided Urine Urine Culture - Final Complete 11/12/24 03:30 Blood Blood Culture - Preliminary NO GROWTH AFTER 72 HOURS OF INCUBATION. Resulted 11/12/24 01:20 Peritoneal Fluid Gram Stain - Final Resulted 11/12/24 01:20 Peritoneal Fluid Body Fluid Culture - Preliminary Resulted Problem List/Assessment/Plan Problem List/Assessment/Plan Assessment-patient is 29 years old male with a history of cirrhosis of liver due to alcoholism/hypertension came with recurrent hospitalization with history of recurrent paracentesis due to melena and ascites was brought into the hospital due to altered mental status and was to found have hepatic encephalopathy with altered mental status. Patient is intubated to maintain his airway due to altered mental status #Neurological -hepatic encephalopathy due to acute on chronic hepatic failure/septic shock -Patient on mechanical ventilation with sedation -continue current management --respiratory culture - normal oropharyngeal rebekah -blood culture no growth -MRSA screening negative -urine culture-negative #Cardiovascular Septic shock --History of hypertension -on Levophed -avoid dehydration and hepatology or nephrotoxic medications #Respiratory -Suspected Acute hypoxic respiratory failure. -On mechanical ventilation -respiratory culture - normal oropharyngeal rebekah -blood culture -negative -MRSA screening negative -urine culture-no growth ---respiratory culture -normal oropharyngeal rebekah -blood culture no growth -MRSA screening negative -urine culture preliminary no growth #Gastrointestinal -Acute on chronic decompensated liver failure due to alcoholic cirrhosis of liver -Cirrhosis of liver likely due to alcoholism -Malignant ascites -Suspected spontaneous bacterial peritonitis -constipation -Transaminitis likely due to acute on chronic hepatic failure -Splenomegaly -Cholelithiasis -abdominal hernia --respiratory culture so far normal oropharyngeal rebekah -blood culture -negative -MRSA screening negative -urine culture-no growth -continue lactulose as prescribed -plan is to have 3-4 bowel movement per day -continue rifaximin 550 mg via OG tube . b.i.d. -continue lactulose 30 mL q.6h #Genitourinary/Renal -alcoholic cirrhosis of the liver, MELD score 26, estimated 3 month mortality 19.6% -suspected hepatorenal syndrome likely due to acute decompensated hepatic failure -ANDRÉS likely due to VMN -mild hyponatremia likely delusional Avoid dehydration and hepatic or nephrotoxic medications Midodrine 10 mg via G-tube t.i.d. Continue vasopressin as prescribed #Infectious -suspected spontaneous bacterial peritonitis -septic shock -continue Zosyn and vancomycin as prescribed -by with OG-tube b.i.d. #Hematological -Severe anemia likely due to hepatic failure/hypersplenism -thrombocytopenia likely due to prism/splenic sequestration -monitor CBC, any sign or symptom of bleeding -status post 2 units of packed blood cell blood transfusion #metabolic or endocrine disorder -Lactic acidosis likely due to hepatic failure/septic shock -metabolic acidosis -hyper ammonia -hypocalcemia -hypoalbuminemia #Skin/alimentary -Jaundice likely due to acute on chronic hepatic failure -avoid hepatic or nephrotoxic medication or dehydration Drips-fentanyl, Versed, norepinephrine, vasopressin Lines-right internal jugular vein central line was placed on 10/15/2024 ET tube placed on 10/14/2024 Goals of care/advance care planning Code status -DNR ; discussed with Father >15 minutes PUD prophylaxis: SCD DVT prophylaxis: Pantoprazole Plan discussed with Dr. Montano , nursing staff, , father Total critical time spent on patient evaluation, chart review, assessment and plan, total critical time spent including monitoring mechanical ventilation 82 minutes Plan discussed with: Other (Father, RN) My Orders My Orders Orders - GUSTAVO SANTIZO RESIDENT Procedure Category Date Status Time Kub Abdomen Single XY 11/14/24 Resulted View 07:03 * Radiologist Consult CONS 11/14/24 Transmitted 10:02 Vasopressin-Sodium PHA 11/14/24 In Process Chloride (Vasopressin 14:00 Abg W/ Co-Ox RT 11/15/24 Logged 04:00 Dietary Evaluation Review Recommendations by RD: Protein Supplementation, PPN/TPN Comments: 1) Consider EN Vital AF 1.2Cal @ 55ml/hr, Start @ 30ml/hr increase 10ml/hr Q4H until goal is reached. water flush 50ml Q4H if allowed. 2) Consider TPN/PN if GI is not accessible 3) Advance diet as medically feasible 4) Continue current plan of care Expected Outcomes/Goals: Pt will meet >75% estimated needs Fu 2-3 days Interpretation of weight loss: >7.5% in 3 months Fluid Accumulation (Severe): Moderate Fluid Retention Protein Calorie Malnutrition: Severe Is there a minimum of two crit: Yes Date of Service: Nov 15, 2024 Billing Provider: DHEERAJ MONTANO MD Common Visit Codes: 87776-[id number] CARE 30-74 MIN, 73493-VODUACNE CARE-EACH +30MIN GUSTAVO SANTIZO RESIDENT Nov 15, 2024 06:47 DHEERAJ MONTANO MD Nov 18, 2024 12:17
--- NOTE | 2024-11-15 09:54 | DVH ---
EXAM: XY CHEST PORTABLE Indication: EVALUATE ET TUBE PLACEMENT Technique: Single frontal view of the chest was obtained Comparison: XY CHEST PORTABLE on DOS: 11/14/24, XY CHEST PORTABLE on DOS: 11/13/24, XY CHEST XRAY 1 VIE W on DOS: 11/12/24, XY CHEST XRAY 1 VIEW on DOS: 11/12/24, XY CHEST PORTABLE on DOS: 11/11/24 FINDINGS: Lines and Tubes: Endotracheal tube projects 1.6 cm above the britta. Enteric tube tip projects over t he expected region of the stomach. Lungs: Low lung volumes. Pleura: No effusion. No pneumothorax. Cardiomediastinal contours: Unremarkable Bones: No acute osseous abnormality. IMPRESSION: Low lung volumes. Endotracheal tube projects 1.6 cm above the britta. Recommend retraction.
[2024-11-15] MEDS: VANCOMYCIN 1GM/200ML PM 250 ML IV SCH (11:49)
[2024-11-16] VITALS (111 sets, daily range): BP systolic 86–111; BP diastolic 51–80; PULSE 64–93; RESP 17–22; TEMP 96.8–99; O2SAT 98–100
--- NOTE | 2024-11-16 05:51 | DVH ---
EXAM: XR Chest, 1 View CLINICAL INDICATION: PNA TECHNIQUE: Frontal view of the chest. COMPARISON: XY CHEST PORTABLE on DOS: 11/15/24, XY CHEST PORTABLE on DOS: 11/14/24, XY CHEST PORTABLE on DOS: 11/13/24, XY CHEST XRAY 1 VIEW on DOS: 11/12/24, XY CHEST XRAY 1 VIEW on DOS: 11/12/24 FINDINGS: LUNGS AND PLEURAL SPACES: Pulmonary venous congestion. Left pleural effusion. No consolidation. No pneumothorax. HEART: Unremarkable. No cardiomegaly. MEDIASTINUM: Unremarkable. Normal mediastinal contour. BONES/JOINTS: Unremarkable. No acute fracture. TUBES, LINES AND DEVICES: Stable tubes and lines. OTHER FINDINGS: . . .. . IMPRESSION: 1. Pulmonary venous congestion. 2. Left pleural effusion.
[2024-11-16 06:55] LABS: Base Excess -7.7 mmol/L (-2.0-3.0)
--- NOTE | 2024-11-16 07:14 | DVHPNRES ---
Progress Note Date Seen: Nov 16, 2024 Resident Creating Document: GUSTAVO SANTIZO Medical Necessity Reason Pt with a Central, PICC or Fol: Yes The following are medically ne: Central Line, Pool Catheter Subjective Review of Systems HPI-Patient is 29 years old male with past medical history of cirrhosis of liver due to alcoholism, hypertension, history of recurrent hospitalization, history of recurrent paracentesis due to malignant ascites was admitted to the hospital due to altered mental status. Patient was brought in by the family due to altered mental status for last 5 days which was getting worse lately. Father patient had some vomiting but no blood. Patient's abdominal of the getting bigger as per father. Patient was recently discharged from [facility] on 11/06/2024. On arrival patient was on altered mental status with suspected metabolic encephalopathy. Patient was intubated to maintain his airway. Initial lab workup revealed WBC 4.9, hemoglobin 8.8, platelet 97, sodium 132, potassium 5.2, normal anion gap 7 BUN 37, serum creatinine 1.68, limit lactic acidosis with lactic acid 3.1> 3.9> 4.2, calcium 8.4, magnesium 2.2, serum bilirubin 4.1, AST 98, ALT 48, alkaline phosphatase 165, ammonia 152, albumin 2.3, analysis not significant for UTI, INR 1.59, CXR no acute cardiopulmonary disease. 11/12/2024 Patient had paracentesis of 4.5 L of fluid early in the morning. Central line was placed in the right internal jugular vein.Patient had today on 11/16/2024 and 6.5 L fluid was removed Patient was recently hospitalized intubated on 10/25/2024 and extubated on 11/01/2024. S/p paracentesis on 10/28/24 - 2.1 liters of ascitic fluid were drained. See separate procedure note for details. S/p 5.2 L paracentesis done on 11/05/2024 Ascitic fluid cultures grew Staph epidermidis E coli septicemia On 10/25/2024 blood culture revealed E coli- sensitive to Levaquin On 10/26/2024 body fluid grew Staphylococcus epidermidis-sensitive to Levaquin CT SCAN -on 10/25/2024 revealed cirrhosis of liver, splenomegaly, cholelithiasis. Patient had paracentesis on 10/21/2024, 10/15/2024, 02/01/25, 11/05/24- On 11/14/2024 Patient was seen today for clinical evaluation. Labs and chart reviewed. Patient is on mechanical ventilation, on sedation, on Levophed Overnight patient's BP 96-110 /62-78, pulse 63- 80, temperature-96.8-97.3 -ABG on 11/16/2024-pH 7.35, pCO2 31.4, PO2 88.5, bicarb 17.0, Intake output-intake 2666, output 650, positive balance 2015 Patient on fentanyl- , midazolam- , Levophed Patient had today on 11/16/2024 and 6.5 L fluid was removed Patient had 2 units of packed RBC transferred on 11/13/2024 for severe anemia. Lab workup revealed Patient with pancytopenia Leukopenia WBC 4.9>> 5.7 >2.8> 02.1> 2.3> 2.0 hemoglobin 8.8> 8.1,> 5.7> 7.3> 7.6> 8.1 thrombocytopenia with platelet 97> 98> 50> 42> 45> 46 Sodium 132 >132> 137> 138> 139>> 139 Potassium > 5.2 5.4> 4.8> 4.2> 4.3> 4.2 > 4.1 Serum creatinine 1.68> 1.73> 1.35> 0.81> 0.64> 0.75 BUN 37> 38> 34> 19> 17> lab in Lactic Acidosis resolved 3.1> 3.9> 4.2?> 3.4> 1.7> 1.8 INR 1.59> 1.70> 1.71> 1.76> 1.78 Ammonia 152> 141>45> 52> 46> 39 transaminitis with serum total bilirubin 4.1> 4.1> 5.5> 8.5> 8.6> 7.6 AST-98>79> 58> 52> 57, ALT> 43> 38> 28> 62> 29> 23, alkaline phosphatase 165> 143>108> 103> 97> 98, ,, hypoalbuminemia with albumin 2.3> 2.0> 2.7> 2.4> 2.3 Money Examiner spoke to patient's brother Morris, , discussed patient's current medical condition, plan of care and answered his question, Objective vital signs Vital Sign Date Time Temp Pulse Resp B/P (MAP) Pulse Ox O2 Delivery O2 Flow Rate FiO2 11/16/24 06:30 97.3 80 18 102/68 (79) 100 207.1 11/16/24 06:20 30 11/16/24 06:00 Mechanical Ventilator+ Total Intake and Output0 11/15/24 11/15/24 11/16/24 15:00 23:00 07:00 Intake Total 852.00 ml 819.00 ml 782.25 ml Output Total 250 ml 400 ml Balance 852.00 ml 569.00 ml 382.25 ml medications Current Medications Medications Dose Ordered Sig/Gretchen Route Start Time Stop Time Status Last Admin Dose Admin Midazolam HCl 50 ml @ 1 mls/hr Q24H IV 11/11/24 23:30 11/16/24 05:35 13 MLS/HR Vancomycin HCl 0 ml @ 0 mls/hr UD IV 11/12/24 03:15 Piperacillin Sod/ Tazobactam Sod 100 ml @ 25 mls/hr Q8HR IV 11/12/24 14:00 11/16/24 05:35 25 MLS/HR Fentanyl Citrate 250 ml @ 2.5 mls/hr Q24H IV 11/12/24 05:00 11/16/24 07:05 30 MLS/HR Pantoprazole Sodium 40 mg BID IV 11/12/24 10:00 11/15/24 22:02 40 MG Norepinephrine Bitartrate 250 ml @ 3.75 mls/hr Q24H IV 11/12/24 05:00 11/15/24 13:31 11.25 MLS/HR Midodrine 10 mg TID@0600,1200,1800 PO 11/13/24 06:00 11/16/24 05:34 10 MG Rifaximin 550 mg BID PO 11/12/24 22:00 11/15/24 22:02 550 MG Polyethylene Glycol 17 gm DAILYPRN PRN PO 11/13/24 12:15 11/15/24 02:40 17 GM Lactulose 30 ml Q4HR PO 11/14/24 14:00 11/16/24 05:34 30 ML Vancomycin HCl 250 ml @ 200 mls/hr Q8H IV 11/15/24 12:00 11/16/24 05:36 200 MLS/HR Enteral Nutritional Formula 1,000 ml 30ML/HR GT 11/15/24 11:45 Examination General examination- patient is on sedation, on mechanical ventilation HEENT- PEERLA, no acute nasal discharge Cardiovascular- S1-S2 audible, rate and rhythm regular, no murmur Respiratory- CTAB, no wheeze or rhonchi Gastrointestinal-nontender, bowel sound+. Abdomen distended, 1+ Musculoskeletal-no acute joint swelling or tenderness or redness# Lower extremity- no leg edema Neurological- patient on sedation, details could not be done Skin- no acute rash or purpura laboratory and microbiology Test 11/16/24 02:51 Range/Units Serum Glucose Pending Microbiology Date/Time Source Procedure Growth Status 11/13/24 04:35 Nose MRSA Screen - Final Complete 11/12/24 03:52 Voided Urine Urine Culture - Final Complete 11/12/24 03:30 Blood Blood Culture - Preliminary NO GROWTH AFTER 72 HOURS OF INCUBATION. Resulted 11/12/24 01:20 Peritoneal Fluid Gram Stain - Final Resulted 11/12/24 01:20 Peritoneal Fluid Body Fluid Culture - Preliminary Resulted Problem List/Assessment/Plan Problem List/Assessment/Plan Assessment-patient is 29 years old male with a history of cirrhosis of liver due to alcoholism/hypertension came with recurrent hospitalization with history of recurrent paracentesis due to melena and ascites was brought into the hospital due to altered mental status and was to found have hepatic encephalopathy with altered mental status. Patient is intubated to maintain his airway due to altered mental status #Neurological -hepatic encephalopathy due to acute on chronic hepatic failure/septic shock -Patient on mechanical ventilation with sedation -continue current management --respiratory culture - normal oropharyngeal rebekah -blood culture no growth -MRSA screening negative -urine culture-negative #Cardiovascular Septic shock --History of hypertension -on Levophed -avoid dehydration and hepatology or nephrotoxic medications #Respiratory -Suspected Acute hypoxic respiratory failure. -On mechanical ventilation -respiratory culture - normal oropharyngeal rebekah -blood culture -negative -MRSA screening negative -urine culture-no growth ---respiratory culture -normal oropharyngeal rebekah -blood culture no growth -MRSA screening negative -urine culture preliminary no growth #Gastrointestinal -Acute on chronic decompensated liver failure due to alcoholic cirrhosis of liver -Cirrhosis of liver likely due to alcoholism -Malignant ascites -Suspected spontaneous bacterial peritonitis -constipation -Transaminitis likely due to acute on chronic hepatic failure -Splenomegaly -Cholelithiasis -abdominal hernia --respiratory culture so far normal oropharyngeal rebekah -blood culture -negative -MRSA screening negative -urine culture-no growth -patient had ultrasound-guided paracentesis today on 11/16/2024 and 6.5 L of fluid was removed -continue lactulose as prescribed -plan is to have 3-4 bowel movement per day -continue rifaximin 550 mg via OG tube . b.i.d. -continue lactulose 30 mL q.6h #Genitourinary/Renal -alcoholic cirrhosis of the liver, MELD score 26, estimated 3 month mortality 19.6% -suspected hepatorenal syndrome likely due to acute decompensated hepatic failure -ANDRÉS likely due to VMN -mild hyponatremia likely delusional Avoid dehydration and hepatic or nephrotoxic medications Midodrine 10 mg via G-tube t.i.d. Continue vasopressin as prescribed #Infectious -suspected spontaneous bacterial peritonitis -septic shock -continue Zosyn and vancomycin as prescribed -by with OG-tube b.i.d. #Hematological -Severe anemia likely due to hepatic failure/hypersplenism -thrombocytopenia likely due to prism/splenic sequestration -monitor CBC, any sign or symptom of bleeding -status post 2 units of packed blood cell blood transfusion #metabolic or endocrine disorder -Lactic acidosis likely due to hepatic failure/septic shock -metabolic acidosis -hyper ammonia -hypocalcemia -hypoalbuminemia #Skin/alimentary -Jaundice likely due to acute on chronic hepatic failure -avoid hepatic or nephrotoxic medication or dehydration Drips-fentanyl, Versed, norepinephrine, Lines-right internal jugular vein central line was placed on 10/15/2024 ET tube placed on 10/14/2024 Goals of care/advance care planning Code status -DNR ; discussed>15 minutes PUD prophylaxis: SCD DVT prophylaxis: Pantoprazole Plan discussed with Dr. Abernathy , nursing staff, , brother Total critical time spent on patient evaluation, chart review, assessment and plan, total critical time spent including monitoring mechanical ventilation 83 minutes Plan discussed with: Other (, RN, brother) My Orders My Orders Orders - GUSTAVO SANTIZO RESIDENT Procedure Category Date Status Time * Wound Consult CONS 11/15/24 Transmitted Tube Feeding DIET 11/15/24 Transmitted Lunch Complete Blood Count LAB 11/16/24 In Process 04:00 Comprehensive LAB 11/16/24 In Process Metabolic Panel 04:00 Abg W/ Co-Ox RT 11/16/24 Logged 06:00 Chest Portable XY 11/16/24 Resulted 05:00 Magnesium LAB 11/16/24 In Process 04:00 Abg W/ Co-Ox RT 11/16/24 Logged 07:00 Dietary Evaluation Review Recommendations by RD: Protein Supplementation, PPN/TPN Comments: 1) Consider EN Vital AF 1.2Cal @ 55ml/hr, Start @ 30ml/hr increase 10ml/hr Q4H until goal is reached. water flush 50ml Q4H if allowed. 2) Consider TPN/PN if GI is not accessible 3) Advance diet as medically feasible 4) Continue current plan of care Expected Outcomes/Goals: Pt will meet >75% estimated needs Fu 2-3 days Interpretation of weight loss: >7.5% in 3 months Fluid Accumulation (Severe): Moderate Fluid Retention Protein Calorie Malnutrition: Severe Is there a minimum of two crit: Yes GUSTAVO SANTIZO RESIDENT Nov 16, 2024 07:14
[2024-11-16 07:26] LABS: Basophils # (auto) 0 10 ^3/uL (0-0.2); Eosinophils # (auto) 0.2 10 ^3/uL (0-0.8); Platelet Count (auto) 46 10^3/uL (140-450)
[2024-11-16 07:28] LABS: Basophils % (auto) 0.5 % (0.0-2.0); Eosinophils % (auto) 8.7 % (0.0-7.0); Hematocrit 24.6 % (41.0-53.0); Hemoglobin 8.1 g/dL (13.5-17.5); Lymphocytes # (auto) 0.4 10 ^3/uL (0.4-5.4); Lymphocytes % (auto) 21.9 % (10.0-50.0); Mean Corpuscular Hemoglobin 30.3 pg (28.0-32.0); Mean Corpuscular Hgb Conc. 33.1 g/dL (32.0-36.0); Mean Corpuscular Volume 91.5 fL (80.0-100.0); Monocytes # (auto) 0.2 10 ^3/uL (0-1.3); Monocytes % (auto) 12.1 % (0.0-12.0); Neutrophils # (auto) 1.1 10 ^3/uL (1.6-8.6); Neutrophils % (auto) 56.8 % (37.0-80.0); Nucleated Red Blood Cells % 0.2 %; Red Blood Cells 2.69 10^6/uL (4.5-5.90)
[2024-11-16 08:08] LABS: Anisocytosis Slight
[2024-11-16 08:09] LABS: Ovalocytes FEW; Platelet Estimate Decreased
[2024-11-16 08:39] LABS: Alanine Aminotransferase 23 U/L (7-40); Alkaline Phosphatase 98 U/L (46-116); Anion Gap 6 (5-15); BUN/Creatinine Ratio 14.7 (10.0-20.0); Blood Urea Nitrogen 11 mg/dL (9-23); Carbon Dioxide 21 mmol/L (20-31); Glucose 97 mg/dL (74-106); Magnesium 1.8 mg/dL (1.6-2.6); Potassium 4.1 mmol/L (3.5-5.1); Sodium 139 mmol/L (136-145)
[2024-11-16 08:45] LABS: Albumin 2.1 g/dL (3.2-4.8); Aspartate Aminotransferase 57 U/L (13-40); Bilirubin, Total 7.6 mg/dL (0.2-1.0); Calcium 7.8 mg/dL (8.7-10.4); Chloride 112 mmol/L (98-107); Total Protein 5.2 g/dL (5.7-8.2)
--- NOTE | 2024-11-16 12:34 | DVH ---
US PARACENTESIS, HISTORY: ASCITES PROCEDURE: Informed consent was obtained. The patient was placed in supine position. A limited locali zation ultrasound of the abdomen was obtained, and the skin site over the largest pocket of fluid was marked and entry site was prepped with chlorhexidine which was allowed to dry and draped in the usua l sterile fashion. Time out was performed. Following administration of 1% lidocaine local anesthetic, a 5 Cambodian centesis needle catheter was percutaneously inserted into the peritoneal collection until fluid was aspirated. The catheter was advanced into the fluid collection and the needle removed. Abo ut 6500 cc of fluid was aspirated . The catheter was then removed and a sterile dressing applied. . N o immediate complication was identified. FINDINGS: Limited ultrasound imaging demonstrates moderate ascites. Aspirated fluid was clear and ser ous. IMPRESSION: US-guided paracentesis with 6.5L removed.
[2024-11-16 13:26] LABS: INR 1.89 (0.9-1.15); Prothrombin Time 18.8 sec (9.3-11.8)
[2024-11-16] MEDS: VASOPRESSIN 20 UNITS in SODIUM CHL 0.9% 99 ML IV SCH (16:30)
[2024-11-16] MEDS: Vital AF 1.2 Cal 1 liter bottle GT SCH (18:20)
[2024-11-17] VITALS (112 sets, daily range): BP systolic 87–100; BP diastolic 53–69; PULSE 69–85; RESP 15–20; TEMP 96.8–98.2; O2SAT 100
[2024-11-17 03:44] LABS: Basophils # (auto) 0 10 ^3/uL (0-0.2); Eosinophils # (auto) 0.2 10 ^3/uL (0-0.8); Hemoglobin 8.2 g/dL (13.5-17.5); Lymphocytes # (auto) 0.4 10 ^3/uL (0.4-5.4); Lymphocytes % (auto) 16.1 % (10.0-50.0); Neutrophils # (auto) 1.6 10 ^3/uL (1.6-8.6); Nucleated Red Blood Cells % 0.1 %; Platelet Count (auto) 42 10^3/uL (140-450)
[2024-11-17 03:46] LABS: Basophils % (auto) 0.2 % (0.0-2.0); Eosinophils % (auto) 7.6 % (0.0-7.0); Hematocrit 24.7 % (41.0-53.0); Mean Corpuscular Hemoglobin 30.8 pg (28.0-32.0); Mean Corpuscular Hgb Conc. 33.3 g/dL (32.0-36.0); Mean Corpuscular Volume 92.6 fL (80.0-100.0); Monocytes # (auto) 0.3 10 ^3/uL (0-1.3); Monocytes % (auto) 10.3 % (0.0-12.0); Neutrophils % (auto) 65.8 % (37.0-80.0); Red Blood Cells 2.67 10^6/uL (4.5-5.90); White Blood Cell 2.4 10^3/uL (4.4-10.8)
[2024-11-17 03:48] LABS: Alanine Aminotransferase 23 U/L (7-40); Alkaline Phosphatase 94 U/L (46-116); Anion Gap 7 (5-15); BUN/Creatinine Ratio 14.8 (10.0-20.0); Blood Urea Nitrogen 13 mg/dL (9-23); Glucose 106 mg/dL (74-106); Magnesium 1.9 mg/dL (1.6-2.6); Potassium 4.1 mmol/L (3.5-5.1); Sodium 140 mmol/L (136-145)
[2024-11-17 03:51] LABS: Aspartate Aminotransferase 60 U/L (13-40); Bilirubin, Total 7.4 mg/dL (0.2-1.0); Carbon Dioxide 20 mmol/L (20-31); Chloride 113 mmol/L (98-107); Total Protein 5.1 g/dL (5.7-8.2)
[2024-11-17 03:53] LABS: Red Cell Distribution Width 23.9 % (11.8-14.3)
[2024-11-17 05:06] LABS: Large Platelets FEW
[2024-11-17 05:07] LABS: Ovalocytes FEW
[2024-11-17 05:08] LABS: Anisocytosis Slight; Platelet Estimate Decreased
--- NOTE | 2024-11-17 06:27 | DVH ---
CHEST RADIOGRAPH Indication: PNA Technique: Single frontal view of the chest was obtained COMPARISON: XY CHEST PORTABLE on DOS: 11/16/24, XY CHEST PORTABLE on DOS: 11/15/24, XY CHEST PORTABLE o n DOS: 11/14/24, XY CHEST PORTABLE on DOS: 11/13/24, XY CHEST XRAY 1 VIEW on DOS: 11/12/24 FINDINGS: Lines and Tubes: Endotracheal tube, enteric catheter and right central venous catheter in satisfactor y position. Lungs: Low lung volumes. Mild congestion. Pleura: No effusion. No pneumothorax. Cardiomediastinal contours: Unremarkable Bones: Unremarkable IMPRESSION: Lines and tubes in satisfactory position. No significant interval change.
--- NOTE | 2024-11-17 15:16 | DVHPN2 ---
Assessment/Plan Assessment/Plan ICU note 29 yo M recently discharged with hepatic encephalopathy admitted for same, no wintubated for altered mental status adding precedex, titrate rest of sedation physical exam sedated and intubated PERRLA jaundice gag + cough + not respodnig to pain on mechanical vent mechanical breath sounds s1s 2 rrr no murmur abdomen distended no LE edema labs ekg imaging reviewed assessment and plan hepatic encephalopathy due to acute on chronic hepatic failure/septic shock Acute hypoxic respiratory failure. Acute on chronic decompensated liver failure due to alcoholic cirrhosis of liver alcoholic cirrhosis of the liver, MELD score 26, estimated 3 month mortality 19.6% suspected hepatorenal syndrome likely due to acute decompensated hepatic failure ANDRÉS likely due to VMN mild hyponatremia likely delusional suspected spontaneous bacterial peritonitis Severe anemia likely due to hepatic failure/hypersplenism c/w current management lactulose q4 add miralax, dulcolax maintain map >60 midodrine midline, possible DC TLC conditon critical prognosis poor critical care time 60 minutes Plan discussed with: Other Date of Service: Nov 17, 2024 Billing Provider: VALENTÍN CELAYA MD Common Visit Codes: [id number] CARE 30-74 MIN VALENTÍN CELAYA MD Nov 17, 2024 15:16
[2024-11-17] MEDS: NOREPINEPHRINE 8 MG/250ML KIT 250 ML IV SCH (15:30)
--- NOTE | 2024-11-17 17:36 | DVHNC2 ---
Other Procedure Procedure Right arm cephalic vein Midline Indication DIVA Anesthetic patient sedated on fentanyl and midazolam Prep Sterile prep. Area was cleaned with chlorhexidine and draped. Success 20 G midline catheter was inserted at 12 cm length and fixed with a statlock. estimated blood loss <15mls UTO Consent yes Date of Service: Nov 17, 2024 Billing Provider: VALENTÍN CELAYA MD Common Visit Codes: PROCEDURE ONLY ([id number]) HELEN PORTILLO RESIDENT Nov 17, 2024 17:36 VALENTÍN CELAYA MD Nov 17, 2024 20:17
--- NOTE | 2024-11-17 21:15 | DVHINCON2 ---
Date of service: Nov 17, 2024 Referring Physician Jaosn Jansen MD Reason for Consultation Acute hypoxic respiratory failure on mechanical ventilator, septic shock History of Present Illness A 29-year-old man with past medical history of liver cirrhosis secondary to alcohol use disorder and hypertension who was brought in to ED on 11/12/24 due to altered level of consciousness. Per patient's father, he has history of chronic liver cirrhosis with multiple paracentesis and has been altered since 5 days, which has progressively worsened. Patient was recently discharged from [facility] on 11/06/2024 after admission due to hepatic encephalopathy and was intubated. While in ED, due to altered mental status the patient could not maintain airway, therefore was sedated and intubated. Patient was admitted for further care and pulmonary consultation is requested for evaluation and management due to the above findings. Review of Systems: Unable to obtain d/t intubated status Past Medical History: Liver cirrhosis secondary to alcohol use disorder, hypertension Past Surgical History: None Medications: Reviewed. Home meds of Protonix, rifaximin, lactulose, furosemide, spironolactone. Allergies: No known drug allergies. Family History: Cirrhosis of liver Colon cancer prostate cancer Hypertension Social History: Nonsmoker. No alcohol or illicit drug use. Family History: Cirrhosis of liver G8 MOTHER Colon cancer G8 FATHER FH: prostate cancer G8 FATHER Hypertension G8 MOTHER G8 FATHER Allergies: Coded Allergies: NO KNOWN ALLERGIES (Unverified , 01/27/21) Home Meds Active Scripts Pantoprazole Sodium Sesquihydr (Protonix) 40 Mg Tab, 40 MG PO DAILY for 30 Days, #30 TAB 2 Refills Prov:DHEERAJ MONTANO MD 11/06/24 Rifaximin (Xifaxan) 550 Mg Tab, 550 MG PO BID for 30 Days, #60 TAB 2 Refills Prov:DHEERAJ MONTANO MD 11/06/24 Lactulose (Lactulose) 10 Gm/15 Ml Karina, 10 GM PO TID for 30 Days, #120 ML 3 Refills Prov:DHEERAJ MONTANO MD 11/06/24 Furosemide (Lasix) 40 Mg Tab, 40 MG PO QAM for 30 Days, #30 TAB 2 Refills Prov:DHEERAJ MONTANO MD 11/06/24 Spironolactone (Aldactone) 100 Mg Tab, 100 MG PO BID for 30 Days, #60 TAB 2 Refills Prov:DHEERAJ MONTANO MD 11/06/24 Lactulose (Lactulose) 10 Gm Chris, 30 GM PO TID for 30 Days, #30 PACK 0 Refills Please take lactulose 30 mL 3 times daily Prov:WILL SHIELDS RESIDENT 10/19/24 Multiple Vitamins W/ Minerals (Mvi W/ Minerals Tab) 1 Tab Tb, 1 TAB PO DAILY for 30 Days, #30 TAB Prov:DHEERAJ MONTANO MD 09/27/24 Spironolactone (Aldactone) 100 Mg Tab, 100 MG PO DAILY for 30 Days, #30 TAB 3 Refills Prov:DHEERAJ MONTANO MD 09/27/24 Furosemide (Lasix) 40 Mg Tab, 40 MG PO QAM for 30 Days, #30 TAB 3 Refills Prov:DHEERAJ MONTANO MD 09/27/24 Pantoprazole Sodium Sesquihydr (Protonix) 40 Mg Tab, 40 MG PO DAILY for 30 Days, #30 TAB 2 Refills Prov:DHEERAJ MONTANO MD 09/27/24 Furosemide (Lasix) 40 Mg Tab, 40 MG PO DAILY for 30 Days, #30 TAB Prov:JO ELDER MD 11/20/23 Reported Medications Thiamine Hcl (VITAMIN B-1) 100 Mg Tb, 1 DAILY 10/13/24 Furosemide (Furosemide) 40 Mg Tab, 40 MG PO DAILY for 30 Days 11/19/23 Current Medications Current Medications Medications (Trade) Dose Ordered Sig/Gretchen Route PRN Reason Start Time Stop Time Status Last Admin Norepinephrine Bitartrate 250 ml @ 1.875 mls/ hr Q24H IV 11/17/24 15:30 11/17/24 15:30 Dexmedetomidine HCl 400 mcg/ Dextrose 100 ml @ 3.95 mls/hr Q24H IV 11/17/24 15:30 Vital Signs Vital Signs Date Time Temp Pulse Resp B/P (MAP) Pulse Ox O2 Delivery O2 Flow Rate FiO2 11/17/24 20:30 97.5 73 18 96/61 (73) 100 207.5 11/17/24 20:09 30 11/17/24 20:00 Mechanical Ventilator+ Physical Exam Gen.: Patient lying in bed in medical ICU. Sedated, intubated on mechanical ventilator. Head: Normocephalic, atraumatic. Eyes: PERRLA. Ears: Normal external anatomy. Throat: Endotracheal tube and orogastric tube in place. Neck: Supple, trachea midline. Chest: Transmitted breath sounds bilaterally. Decreased air entry bilaterally. No wheezing. Bibasilar crackles. Cardiovascular: Positive S1, positive S2. Regular rate and rhythm. Abdomen: Positive bowel sounds in all 4 quadrants. Soft, nontender, nondistended. : Pool in place. Normal external genitalia. Rectal: Deferred. Skin: Warm, dry. Intact. Extremities: 2+ radial pulses bilaterally. No lower extremity edema. Neuro: Sedated. Labs/Diagnostic Data Labs Test 11/17/24 06:18 11/17/24 02:52 11/16/24 13:00 11/16/24 04:50 Range/Units Blood Gas Specimen Type Arterial Blood Gas Sample Site Right radial Blood Gas Patient Temperature 37.0 Arterial Blood Date Drawn [id number] Arterial Blood pH 7.345 L 7.350-7.450 Arterial Blood Partial Pressure CO2 31.4 L 35.0-48.0 mmHg Arterial Blood Partial Pressure O2 94.4 83.0-108.0 mmHg Arterial Blood HCO3 16.8 L 21.0-28.0 mmol/L Arterial Blood Oxygen Saturation 95.8 94.0-98.0 % Arterial Blood Base Excess -8.0 L -2.0-3.0 mmol/L Arterial Blood Oxyhemoglobin 94.6 94.0-98.0 % Arterial Blood Carboxyhemoglobin 0.6 0.5-1.5 % Arterial Blood Methemoglobin 0.7 0.0-1.5 % John Test Modified Blood Gas Total Hemoglobin 9.10 L 13.5-17.5 g/dL Blood Gas Set Respiration Rate 18.0 Blood Gas Modality Vent - ac FiO2 % 30.0 Blood Gas Tidal Volume 450.0 Blood Gas PEEP or CPAP 5.0 White Blood Count 2.4 L 4.4-10.8 10^3/uL Red Blood Count 2.67 L 4.5-5.90 10^6/uL Hemoglobin 8.2 L 13.5-17.5 g/dL Hematocrit 24.7 L 41.0-53.0 % Mean Corpuscular Volume 92.6 80.0-100.0 fL Mean Corpuscular Hemoglobin 30.8 28.0-32.0 pg Mean Corpuscular Hemoglobin Concent 33.3 32.0-36.0 g/dL Red Cell Distribution Width 23.9 H 11.8-14.3 % Platelet Count 42 L 140-450 10^3/uL Mean Platelet Volume 8.3 6.9-10.8 fL Neutrophils (%) (Auto) 65.8 37.0-80.0 % Lymphocytes (%) (Auto) 16.1 10.0-50.0 % Monocytes (%) (Auto) 10.3 0.0-12.0 % Eosinophils (%) (Auto) 7.6 H 0.0-7.0 % Basophils (%) (Auto) 0.2 0.0-2.0 % Neutrophils # (Auto) 1.6 1.6-8.6 10 ^3/uL Lymphocytes # (Auto) 0.4 0.4-5.4 10 ^3/uL Monocytes # (Auto) 0.3 0-1.3 10 ^3/uL Eosinophils # (Auto) 0.2 0-0.8 10 ^3/uL Basophils # (Auto) 0 0-0.2 10 ^3/uL Nucleated Red Blood Cells 0.1 % Platelet Estimate Decreased Large Platelets Few Poikilocytosis (manual) Slight Anisocytosis (manual) Slight Ovalocytes Few [place] Cells Few Schistocytes Few Sodium Level 140 136-145 mmol/L Potassium Level 4.1 3.5-5.1 mmol/L Chloride Level 113 H 98-107 mmol/L Carbon Dioxide Level 20 20-31 mmol/L Anion Gap 7 5-15 Blood Urea Nitrogen 13 9-23 mg/dL Creatinine 0.88 0.700-1.30 mg/dL Glomerular Filtration Rate Calc 118 >90 mL/min BUN/Creatinine Ratio 14.8 10.0-20.0 Serum Glucose 106 74-106 mg/dL Calcium Level 8.0 L 8.7-10.4 mg/dL Magnesium Level 1.9 1.6-2.6 mg/dL Total Bilirubin 7.4 H 0.2-1.0 mg/dL Aspartate Amino Transferase (AST) 60 H 13-40 U/L Alanine Aminotransferase (ALT) 23 7-40 U/L Alkaline Phosphatase 94 46-116 U/L Total Protein 5.1 L 5.7-8.2 g/dL Albumin 2.0 L 3.2-4.8 g/dL Vancomycin Level Trough 18.0 H 5-10 ug/mL Prothrombin Time 18.8 H 9.3-11.8 sec Prothrombin Time INR 1.89 H 0.9-1.15 Ammonia 39 H 11-32 umol/L Test 11/15/24 03:15 11/14/24 04:48 11/13/24 10:51 11/13/24 07:11 Range/Units Lactic Acid Level 1.8 0.4-2.0 mmol/L Thyroid Stimulating Hormone (TSH) 1.10 0.55-4.78 uIU/mL Target Cells Few Specimen Drawn By Pati olsen box truck owner operator Blood Gas Critical Value Read Back Yes Blood Gas Notified Whom Teo jansen md Blood Gas Notified Time [id number] Blood Gas Notified By Ana dhaliwal box truck owner operator Test 11/12/24 06:46 11/12/24 06:24 11/12/24 05:18 11/12/24 05:16 Range/Units POC Glucose 168 H 70-106 mg/dl Blood Gas Spontaneous Rate 28 Direct Bilirubin 3.1 H <0.3 mg/dL Activated Partial Thromboplast Time 41.9 H 24.5-34.5 SEC Test 11/12/24 03:52 11/12/24 03:15 11/12/24 01:20 11/11/24 21:45 Range/Units Urine Color Dark-yellow Yellow Urine Clarity Turbid H Clear Urine pH 5.5 5.0-9.0 Urine Specific [place] 1.025 1.001-1.035 Urine Protein Trace H Negative Urine Ketones Trace Negative Urine Blood Negative Negative /uL Urine Nitrite Negative Negative Urine Bilirubin 1+ Negative Urine Urobilinogen 2 H Negative mg/dL Urine Leukocyte Esterase Negative Negative /uL Urine RBC 7 0 - 3 /hpf Urine Microscopic WBC 7 H 0-3 /HPF Urine Squamous Epithelial Cells Few <5 /hpf Urine Bacteria None seen None Seen /hpf Urine Hyaline Casts Many 0 - 2 /lpf Urine Mucus Few None Seen Urine Glucose Normal Normal mg/dL Urine Opiates Screen Pos NEGATIVE Urine Fentanyl Screen Neg NEGATIVE Urine Barbiturates Screen Neg NEGATIVE Urine Phencyclidine Screen Neg NEGATIVE Urine Amphetamines Screen Neg NEGATIVE Urine Benzodiazepines Screen Pos NEGATIVE Urine Cocaine Screen Neg NEGATIVE Urine Cannabinoids Screen Neg NEGATIVE Hypochromasia (manual) Slight Body Fluid Glucose 125 . mg/dL Body Fluid Albumin <0.2 Not Estab. g/dL Body Fluid Lactate Dehydrogenase 23 . IU/L Tear Drop Cells Few Microbiology Date/Time Source Procedure Growth Status 11/13/24 04:35 Nose MRSA Screen - Final Complete 11/12/24 03:52 Voided Urine Urine Culture - Final Complete 11/12/24 03:30 Blood Blood Culture - Final NO GROWTH AFTER 5 DAYS OF INCUBATION. Complete 11/12/24 01:20 Peritoneal Fluid Gram Stain - Final Complete 11/12/24 01:20 Peritoneal Fluid Body Fluid Culture - Final Complete Assessment Impression: Acute hypoxic respiratory failure Metabolic acidosis On mechanical ventilator Septic shock Cirrhosis Ascites Atelectasis Parkinson's Disease Pulmonary edema Hyperkalemia Lactic acidosis Plan: s/p intubation on mechanical ventilator. CXR image and report reviewed. Devices in place. Mild pulmonary congestion. No pneumothorax. No pleural effusion. ABG reviewed, acidemia. On AC mode; RR 18, VT 450, PEEP 5, FiO2 30% Titrate FIO2 to keep O2 saturation above 90%. VAP bundle. Daily ABG and CXR while intubated Sedate for ventilator synchrony - Fentanyl and Versed Continue antibiotics. F/u cultures. On pressors for hemodynamic support Levophed 4 mcg/min Titrate to keep mean arterial pressure greater than 65 mmHg. Taper sedation CPAP with PS 8, PEEP 5. S/p paracentesis by IR on 11/16/24. Tube feeds for nutritional support Monitor renal function Monitor electrolytes. Supplement as necessary. Monitor ins and outs. Maintain euvolemia. GI prophylaxis. DVT prophylaxis. Prognosis: Poor given patient's multiple co-morbidities. Condition: Critical Rest of plan per hospitalist and other consultants. A total of 35 minutes of critical care time was spent reviewing the patient record, examining the patient, making a diagnostic and therapeutic plan, discussing this plan with the medical personnel, following up on diagnostic stud ies and following the patient for clinical stability excluding any and all procedures. At least 50% of this time was spent in direct, [id number] contact. Thank you, Dr. Jansen, for allowing me to participate in this patient's care. Further recommendations will depend on the patient's clinical course. Please do not hesitate to contact me if you have any questions or concerns. This medical document was created using an electronic medical record system with [employer] dictation system. Although these documentations are being carefully reviewed, there may still be some phonetic and typographical changes. The errors are purely typographical, due to imperfection on the software program, and do not reflect any compromise in the patient's medical care. Plan discussed with: Other (BRENT Byrne/Dr. Jansen) EILEEN LORENZO MD Nov 17, 2024 21:15
[2024-11-18] VITALS (110 sets, daily range): BP systolic 67–112; BP diastolic 34–80; PULSE 61–84; RESP 15–19; TEMP 97.3–98.4; O2SAT 91–100
[2024-11-18 05:30] LABS: Basophils # (auto) 0 10 ^3/uL (0-0.2); Eosinophils # (auto) 0.2 10 ^3/uL (0-0.8); Lymphocytes # (auto) 0.4 10 ^3/uL (0.4-5.4); Mean Corpuscular Volume 92.3 fL (80.0-100.0); Nucleated Red Blood Cells % 0.1 %; Platelet Count (auto) 44 10^3/uL (140-450); Red Cell Distribution Width 23.7 % (11.8-14.3)
[2024-11-18 05:34] LABS: Basophils % (auto) 0.5 % (0.0-2.0); Eosinophils % (auto) 5.8 % (0.0-7.0); Hematocrit 27.1 % (41.0-53.0); Hemoglobin 8.8 g/dL (13.5-17.5); Lymphocytes % (auto) 13.2 % (10.0-50.0); Mean Corpuscular Hemoglobin 29.8 pg (28.0-32.0); Mean Corpuscular Hgb Conc. 32.3 g/dL (32.0-36.0); Monocytes # (auto) 0.3 10 ^3/uL (0-1.3); Monocytes % (auto) 10.3 % (0.0-12.0); Neutrophils # (auto) 2.3 10 ^3/uL (1.6-8.6); Neutrophils % (auto) 70.2 % (37.0-80.0); Red Blood Cells 2.94 10^6/uL (4.5-5.90); White Blood Cell 3.3 10^3/uL (4.4-10.8)
[2024-11-18 05:41] LABS: Alanine Aminotransferase 28 U/L (7-40); Alkaline Phosphatase 103 U/L (46-116); Anion Gap 10 (5-15); BUN/Creatinine Ratio 14.4 (10.0-20.0); Blood Urea Nitrogen 18 mg/dL (9-23); Glucose 101 mg/dL (74-106); Potassium 4.4 mmol/L (3.5-5.1); Sodium 140 mmol/L (136-145)
[2024-11-18 05:42] LABS: Albumin 1.9 g/dL (3.2-4.8); Aspartate Aminotransferase 84 U/L (13-40); Calcium 7.5 mg/dL (8.7-10.4); Carbon Dioxide 19 mmol/L (20-31); Chloride 111 mmol/L (98-107); Total Protein 5.1 g/dL (5.7-8.2)
[2024-11-18 05:50] LABS: Bilirubin, Total 8.4 mg/dL (0.2-1.0)
--- NOTE | 2024-11-18 06:09 | DVH ---
CHEST RADIOGRAPH Indication: intubated Technique: Single frontal view of the chest was obtained COMPARISON: XY CHEST PORTABLE on DOS: 11/17/24, XY CHEST PORTABLE on DOS: 11/16/24, XY CHEST PORTABLE o n DOS: 11/15/24, XY CHEST PORTABLE on DOS: 11/14/24, XY CHEST PORTABLE on DOS: 11/13/24, XY CHEST PORTAB LE on DOS: 11/17/24 FINDINGS: Lines and Tubes: Endotracheal tube, enteric catheter and right central venous catheter in satisfactor y position. Lungs: Low lung volumes. Mild congestion. Pleura: No effusion. No pneumothorax. Cardiomediastinal contours: Unremarkable Bones: Unremarkable IMPRESSION: Lines and tubes in satisfactory position. No significant interval change.
[2024-11-18 06:21] LABS: Anisocytosis Slight; Platelet Estimate Decreased
[2024-11-18 07:03] LABS: Base Excess -9.9 mmol/L (-2.0-3.0)
--- NOTE | 2024-11-18 13:38 | DVHPN2 ---
Changes from previous H/P or p: Changes Objective Vitals Vital Signs Date Time Temp Pulse Resp B/P (MAP) Pulse Ox O2 Delivery O2 Flow Rate FiO2 11/18/24 13:15 97.3 64 18 94/66 (75) 100 207.1 11/18/24 12:25 30 11/18/24 12:00 Mechanical Ventilator+ Intake/Output Intake and Output 11/18/24 07:00 Intake Total 2664.425 ml Output Total 400 ml Balance 2264.425 ml Intake Oral 314 ml IV Total 2030.425 ml Tube Feeding 320 ml Output Urine Total 400 ml Medications Current Medications Medications Dose Ordered Sig/Gretchen Route Start Time Stop Time Status Last Admin Dose Admin Midazolam HCl 50 ml @ 1 mls/hr Q24H IV 11/11/24 23:30 11/18/24 06:00 4 MLS/HR Vancomycin HCl 0 ml @ 0 mls/hr UD IV 11/12/24 03:15 Piperacillin Sod/ Tazobactam Sod 100 ml @ 25 mls/hr Q8HR IV 11/12/24 14:00 11/18/24 09:02 25 MLS/HR Fentanyl Citrate 250 ml @ 2.5 mls/hr Q24H IV 11/12/24 05:00 11/18/24 06:02 12.5 MLS/HR Pantoprazole Sodium 40 mg BID IV 11/12/24 10:00 11/18/24 10:15 40 MG Midodrine 10 mg TID@0600,1200,1800 PO 11/13/24 06:00 11/18/24 11:50 10 MG Rifaximin 550 mg BID PO 11/12/24 22:00 11/18/24 10:15 550 MG Polyethylene Glycol 17 gm DAILYPRN PRN PO 11/13/24 12:15 11/18/24 11:50 17 GM Lactulose 30 ml Q4HR PO 11/14/24 14:00 11/18/24 10:15 30 ML Enteral Nutritional Formula 1,000 ml 30ML/HR GT 11/15/24 11:45 11/18/24 02:00 1,000 ML Vasopressin 20 units/Sodium Chloride 100 ml @ 9 mls/hr Q11H7M IV 11/16/24 16:30 Norepinephrine Bitartrate 250 ml @ 1.875 mls/ hr Q24H IV 11/17/24 15:30 11/17/24 15:30 7.5 MLS/HR Dexmedetomidine HCl 400 mcg/ Dextrose 100 ml @ 3.95 mls/hr Q24H IV 11/17/24 15:30 11/17/24 21:53 3.95 MLS/HR Laboratory Results Laboratory Tests 11/18/24 04:39 Chemistry Test 11/18/24 04:39 Albumin 1.9 g/dL (3.2-4.8) L Calcium Level 7.5 mg/dL (8.7-10.4) L Magnesium Level 2.0 mg/dL (1.6-2.6) Total Protein 5.1 g/dL (5.7-8.2) L LFT Test 11/18/24 04:39 Alanine Aminotransferase (ALT) 28 U/L (7-40) Alkaline Phosphatase 103 U/L (46-116) Aspartate Amino Transferase (AST) 84 U/L (13-40) H Total Bilirubin 8.4 mg/dL (0.2-1.0) H Urinalysis Test 11/12/24 03:52 Urine Color Dark-yellow (Yellow) Urine Clarity Turbid (Clear) H Urine pH 5.5 (5.0-9.0) Urine Specific [place] 1.025 (1.001-1.035) Urine Protein Trace (Negative) H Urine Ketones Trace (Negative) Urine Blood Negative /uL (Negative) Urine Nitrite Negative (Negative) Urine Bilirubin 1+ (Negative) Urine Urobilinogen 2 mg/dL (Negative) H Urine Leukocyte Esterase Negative /uL (Negative) Urine RBC 7 /hpf (0 - 3) Urine Microscopic WBC 7 /HPF (0-3) H Urine Squamous Epithelial Cells Few /hpf (<5) Urine Bacteria None seen /hpf (None Seen) Urine Hyaline Casts Many /lpf (0 - 2) Urine Mucus Few (None Seen) Urine Glucose Normal mg/dL (Normal) Blood Gas Results Test 11/18/24 06:55 Arterial Blood pH 7.308 (7.350-7.450) FiO2 % 30.0 Microbiology Microbiology Date/Time Source Procedure Growth Status 11/13/24 04:35 Nose MRSA Screen - Final Complete 11/12/24 03:52 Voided Urine Urine Culture - Final Complete 11/12/24 03:30 Blood Blood Culture - Final NO GROWTH AFTER 5 DAYS OF INCUBATION. Complete 11/12/24 01:20 Peritoneal Fluid Gram Stain - Final Complete 11/12/24 01:20 Peritoneal Fluid Body Fluid Culture - Final Complete Assessment/Plan Assessment/Plan ICU note 29 yo M recently discharged with hepatic encephalopathy admitted for same, no wintubated for altered mental status off sedation miralax BID and lactulose q4 still no BM physical exam sedated and intubated PERRLA jaundice gag + cough + not respodnig to pain on mechanical vent mechanical breath sounds s1s 2 rrr no murmur abdomen distended no LE edema labs ekg imaging reviewed assessment and plan hepatic encephalopathy due to acute on chronic hepatic failure/septic shock Acute hypoxic respiratory failure. Acute on chronic decompensated liver failure due to alcoholic cirrhosis of liver alcoholic cirrhosis of the liver, MELD score 26, estimated 3 month mortality 19.6% suspected hepatorenal syndrome likely due to acute decompensated hepatic failure ANDRÉS likely due to VMN mild hyponatremia likely delusional suspected spontaneous bacterial peritonitis Severe anemia likely due to hepatic failure/hypersplenism c/w current management add miralax, c/w lactulose, aim for 2 BM if still no BM will do enema hold fentanyl maintain map >60 midodrine conditon critical prognosis poor critical care time 60 minutes Plan discussed with: Other My Orders Orders - VALENTÍN CELAYA MD Procedure Category Date Status Time Norepinephrine 8 PHA 11/17/24 In Process Mg/250ml Kit 15:30 D5w 5% (Dextrose 5%) PHA 11/17/24 In Process W/Dexmedetomidine 15:30 Communication Order ORDERS 11/17/24 Transmitted 15:20 Chest Portable XY 11/18/24 Resulted 04:00 Date of Service: Nov 18, 2024 Billing Provider: VALENTÍN CELAYA MD Common Visit Codes: [id number] CARE 30-74 MIN VALENTÍN CELAYA MD Nov 18, 2024 13:38
--- NOTE | 2024-11-18 23:30 | DVHPN2 ---
Progress Note - Dictate Date Seen: Nov 18, 2024 Medical Necessity Reason Pt with a Central, PICC or Fol: Yes The following are medically ne: Central Line, Cartwright Catheter Reason for cartwright catheter: Strict I&O Subjective Patient seen and examined at bedside. Intubated on mechanical ventilator. Overnight events reviewed. vital signs Vital Sign Date Time Temp Pulse Resp B/P (MAP) Pulse Ox O2 Delivery O2 Flow Rate FiO2 11/18/24 22:46 86/44 11/18/24 22:21 74 18 100 30 11/18/24 21:45 98.1 208.6 11/18/24 18:00 Mechanical Ventilator+ Total Intake and Output 11/17/24 11/17/24 11/18/24 15:00 23:00 07:00 Intake Total 834.0 ml 915.950 ml 914.475 ml Output Total 200 ml 200 ml Balance 834.0 ml 715.950 ml 714.475 ml medications Current Medications Medications Dose Ordered Sig/Gretchen Route Start Time Stop Time Status Last Admin Dose Admin Midazolam HCl 50 ml @ 1 mls/hr Q24H IV 11/11/24 23:30 11/18/24 06:00 4 MLS/HR Vancomycin HCl 0 ml @ 0 mls/hr UD IV 11/12/24 03:15 Piperacillin Sod/ Tazobactam Sod 100 ml @ 25 mls/hr Q8HR IV 11/12/24 14:00 11/18/24 22:36 25 MLS/HR Fentanyl Citrate 250 ml @ 2.5 mls/hr Q24H IV 11/12/24 05:00 11/18/24 06:02 12.5 MLS/HR Pantoprazole Sodium 40 mg BID IV 11/12/24 10:00 11/18/24 22:36 40 MG Midodrine 10 mg TID@0600,1200,1800 PO 11/13/24 06:00 11/18/24 17:45 10 MG Rifaximin 550 mg BID PO 11/12/24 22:00 11/18/24 22:36 550 MG Polyethylene Glycol 17 gm DAILYPRN PRN PO 11/13/24 12:15 11/18/24 11:50 17 GM Lactulose 30 ml Q4HR PO 11/14/24 14:00 11/18/24 22:36 30 ML Enteral Nutritional Formula 1,000 ml 30ML/HR GT 11/15/24 11:45 11/18/24 02:00 1,000 ML Vasopressin 20 units/Sodium Chloride 100 ml @ 9 mls/hr Q11H7M IV 11/16/24 16:30 Norepinephrine Bitartrate 250 ml @ 1.875 mls/ hr Q24H IV 11/17/24 15:30 11/18/24 19:19 5.625 MLS/HR Dexmedetomidine HCl 400 mcg/ Dextrose 100 ml @ 3.95 mls/hr Q24H IV 11/17/24 15:30 11/17/24 21:53 3.95 MLS/HR objective Gen.: Patient lying in bed in medical ICU. Intubated on mechanical ventilator. Head: Normocephalic, atraumatic. Eyes: PERRLA. Ears: Normal external anatomy. Throat: Endotracheal tube and orogastric tube in place. Neck: Supple, trachea midline. Chest: Transmitted breath sounds bilaterally. Decreased air entry bilaterally. No wheezing. Bibasilar crackles. Cardiovascular: Positive S1, positive S2. Regular rate and rhythm. Abdomen: Positive bowel sounds in all 4 quadrants. Soft, nontender, nondistended. : Cartwright in place. Normal external genitalia. Rectal: Deferred. Skin: Warm, dry. Intact. Extremities: 2+ radial pulses bilaterally. No lower extremity edema. Neuro: Off sedation laboratory and microbiology Laboratory Tests 11/18/24 04:39 Test 11/18/24 04:39 Range/Units Serum Glucose 101 74-106 mg/dL Assessment/Plan Impression: Acute hypoxic respiratory failure On mechanical ventilator Septic shock Cirrhosis Ascites Events: Remains on vent support On AC mode; RR 18, VT 450, PEEP 5, FiO2 30% Off sedation Continue antibiotics On pressors for hemodynamic support Levophed 4 mcg/min Titrate to keep mean arterial pressure greater than 65 mmHg. CPAP once patient is awake, alert. ABG reviewed, notable for acidemia CXR demonstrates mild pulmonary congestion Labs and imaging reviewed. Rest of plan as noted below. Plan: s/p intubation on mechanical ventilator. On AC mode; RR 18, VT 450, PEEP 5, FiO2 30% Titrate FIO2 to keep O2 saturation above 90%. VAP bundle. Daily ABG and CXR while intubated Off sedation Continue antibiotics. F/u cultures. On pressors for hemodynamic support Levophed 4 mcg/min Titrate to keep mean arterial pressure greater than 65 mmHg. Taper sedation CPAP with PS 8, PEEP 5. S/p paracentesis by IR on 11/16/24. Tube feeds for nutritional support Monitor renal function Monitor electrolytes. Supplement as necessary. Monitor ins and outs. Maintain euvolemia. GI prophylaxis. DVT prophylaxis. Prognosis: Poor given patient's multiple co-morbidities. Condition: Critical Rest of plan per hospitalist and other consultants. A total of 35 minutes of critical care time was spent reviewing the patient record, examining the patient, making a diagnostic and therapeutic plan, discussing this plan with the medical personnel, following up on diagnostic studies and following the patient for clinical stability excluding any and all procedures. At least 50% of this time was spent in direct, [id number] contact. Thank you, Dr. Jansen, for allowing me to participate in this patient's care. Further recommendations will depend on the patient's clinical course. Please do not hesitate to contact me if you have any questions or concerns. This medical document was created using an electronic medical record system with [employer] dictation system. Although these documentations are being carefully reviewed, there may still be some phonetic and typographical changes. The errors are purely typographical, due to imperfection on the software program, and do not reflect any compromise in the patient's medical care. Dietary Evaluation Review Recommendations by RD: Increase Calorie Intake Comments: 1) Increase TF rate to 55 mL/hr goal rate as tolerated. Flush with 50 mL free H2O Q4H Goal rate will provide 1584 kcals, 99g Pro, and 1371 mL free H2O (including flushes) per 24 hrs. Goal rate will meet ~ 97% estimated daily energy needs and ~ 93% estimated daily protein needs 2) Advance to hepatic diet when medically feasible, pending [employer]PER[employer] aproval 3) Continue to monitor I&O, labs, and skin integrity. Goal TF rate will meet increased protein needs r/t cirrhosis, critical illness, and low Antolin score Expected Outcomes/Goals: 1) EN rate to increase to meet at least 75% of patient's estimated needs 2) diet to advance 3) labs and skin integrity to improve 4) f/u in 2-3 days Interpretation of weight loss: >7.5% in 3 months Fluid Accumulation (Severe): Moderate Fluid Retention Protein Calorie Malnutrition: Severe Is there a minimum of two crit: Yes Plan discussed with: Other (BRENT Beasley) Critical Care Time(min): 35 EILEEN LORENZO MD Nov 18, 2024 23:30
[2024-11-19] VITALS (107 sets, daily range): BP systolic 71–135; BP diastolic 38–90; PULSE 65–89; RESP 17–19; TEMP 97.4–98.1; O2SAT 93–100
[2024-11-19 07:13] LABS: Base Excess -8.6 mmol/L (-2.0-3.0)
--- NOTE | 2024-11-19 07:28 | DVHPNRES ---
Progress Note Date Seen: Nov 19, 2024 Resident Creating Document: GUSTAVO SANTIZO Medical Necessity Reason Pt with a Central, PICC or Fol: Yes The following are medically ne: Central Line, Cartwright Catheter Reason for cartwright catheter: Strict I&O Subjective Review of Systems HPI-Patient is 29 years old male with past medical history of cirrhosis of liver due to alcoholism, hypertension, history of recurrent hospitalization, history of recurrent paracentesis due to malignant ascites was admitted to the hospital due to altered mental status. Patient was brought in by the family due to altered mental status for last 5 days which was getting worse lately. Father patient had some vomiting but no blood. Patient's abdominal of the getting bigger as per father. Patient was recently discharged from [facility] on 11/06/2024. On arrival patient was on altered mental status with suspected metabolic encephalopathy. Patient was intubated to maintain his airway. Initial lab workup revealed WBC 4.9, hemoglobin 8.8, platelet 97, sodium 132, potassium 5.2, normal anion gap 7 BUN 37, serum creatinine 1.68, limit lactic acidosis with lactic acid 3.1> 3.9> 4.2, calcium 8.4, magnesium 2.2, serum bilirubin 4.1, AST 98, ALT 48, alkaline phosphatase 165, ammonia 152, albumin 2.3, analysis not significant for UTI, INR 1.59, CXR no acute cardiopulmonary disease. 11/12/2024 Patient had paracentesis of 4.5 L of fluid early in the morning. Central line was placed in the right internal jugular vein.Patient had today on 11/16/2024 and 6.5 L fluid was removed Patient was recently hospitalized intubated on 10/25/2024 and extubated on 11/01/2024. S/p paracentesis on 10/28/24 - 2.1 liters of ascitic fluid were drained. See separate procedure note for details. S/p 5.2 L paracentesis done on 11/05/2024 Ascitic fluid cultures grew Staph epidermidis E coli septicemia On 10/25/2024 blood culture revealed E coli- sensitive to Levaquin On 10/26/2024 body fluid grew Staphylococcus epidermidis-sensitive to Levaquin CT SCAN -on 10/25/2024 revealed cirrhosis of liver, splenomegaly, cholelithiasis. Patient had paracentesis on 10/21/2024, 10/15/2024, 02/01/25, 11/05/24- Patient was seen today for clinical evaluation. Labs and chart reviewed. Patient is on mechanical ventilation, off sedation, on Levophed Overnight patient's BP C7-103 /36-77, pulse 72 88, temperature-97.5-97.9 -ABG on 11/16/2024-pH 7.35, pCO2 31.4, PO2 88.5, bicarb 17.0, I/O -intake 845, output 275, positive balance 570 Refeeding was restarted Patient hada a bowel movement today On Precedex 0.1, Levophed 3 Plan is to do a CPAP trial on 11/20/2024 at a.m. Patient had a bowel movement today on 11/19/2024 at p.m. Lab workup revealed ABG on 11/19/2024n pH 7.27, pCO2 38.2, PO2 89.2, Bicarbonate 17.5, Patient with pancytopenia Leukopenia WBC 4.9>> 5.7 >2.8> 02.1> 2.3> 2.0> 2.4> 3.3 hemoglobin 8.8> 8.1,> 5.7> 7.3> 7.6> 8.1> 8.2> 8.8 thrombocytopenia with platelet 97> 98> 50> 42> 45> 46> 42> 44 Sodium 132 >132> 137> 138> 139>> 139> 140> 140 Potassium > 5.2 5.4> 4.8> 4.2> 4.3> 4.2 > 4.1> 4.1> 4.1 Serum creatinine 1.68> 1.73> 1.35> 0.81> 0.64> 0.75> 1.25> 1.88 BUN 37> 38> 34> 19> 17> 11> 13> 18 Lactic Acidosis resolved 3.1> 3.9> 4.2?> 3.4> 1.7> 1.8 INR 1.59> 1.70> 1.71> 1.76> 1.78 Ammonia 152> 141>45> 52> 46> 39> 48 transaminitis with serum total bilirubin 4.1> 4.1> 5.5> 8.5> 8.6> 7.6> 7.4> 8.4 AST-98>79> 58> 52> 57> 60> 84, ALT> 43> 38> 28> 62> 29> 23> 28 , alkaline phosphatase 165> 143>108> 103> 97> 98> 94> 103, ,, hypoalbuminemia with albumin 2.3> 2.0> 2.7> 2.4> 2.3> 2.0> 1.9 Patient had 2 units of packed RBC transferred on 11/13/2024 for severe anemia. 1[employer] spoke to patient's father Morris, , discussed patient's current medical condition, plan of care and answered his question Objective vital signs Vital Sign Date Time Temp Pulse Resp B/P (MAP) Pulse Ox O2 Delivery O2 Flow Rate FiO2 11/19/24 06:45 102/73 11/19/24 06:45 97.5 74 18 100 207.5 11/19/24 06:35 30 11/19/24 06:00 Mechanical Ventilator+ Total Intake and Output 11/18/24 11/18/24 11/19/24 15:00 23:00 07:00 Intake Total 192.750 ml 174.375 ml 452.350 ml Output Total 175 ml 100 ml Balance 192.750 ml -0.625 ml 352.350 ml medications Current Medications Medications Dose Ordered Sig/Gretchen Route Start Time Stop Time Status Last Admin Dose Admin Midazolam HCl 50 ml @ 1 mls/hr Q24H IV 11/11/24 23:30 11/18/24 06:00 4 MLS/HR Vancomycin HCl 0 ml @ 0 mls/hr UD IV 11/12/24 03:15 Piperacillin Sod/ Tazobactam Sod 100 ml @ 25 mls/hr Q8HR IV 11/12/24 14:00 11/19/24 06:15 25 MLS/HR Fentanyl Citrate 250 ml @ 2.5 mls/hr Q24H IV 11/12/24 05:00 11/18/24 06:02 12.5 MLS/HR Pantoprazole Sodium 40 mg BID IV 11/12/24 10:00 11/18/24 22:36 40 MG Midodrine 10 mg TID@0600,1200,1800 PO 11/13/24 06:00 11/19/24 06:15 10 MG Rifaximin 550 mg BID PO 11/12/24 22:00 11/18/24 22:36 550 MG Polyethylene Glycol 17 gm DAILYPRN PRN PO 11/13/24 12:15 11/18/24 11:50 17 GM Lactulose 30 ml Q4HR PO 11/14/24 14:00 11/19/24 06:17 30 ML Enteral Nutritional Formula 1,000 ml 30ML/HR GT 11/15/24 11:45 11/18/24 02:00 1,000 ML Vasopressin 20 units/Sodium Chloride 100 ml @ 9 mls/hr Q11H7M IV 11/16/24 16:30 Norepinephrine Bitartrate 250 ml @ 1.875 mls/ hr Q24H IV 11/17/24 15:30 11/18/24 19:19 5.625 MLS/HR Dexmedetomidine HCl 400 mcg/ Dextrose 100 ml @ 3.95 mls/hr Q24H IV 11/17/24 15:30 11/19/24 04:16 5.925 MLS/HR Examination General examination- patient is on sedation, on mechanical ventilation HEENT- PEERLA, no acute nasal discharge Cardiovascular- S1-S2 audible, rate and rhythm regular, no murmur Respiratory- CTAB, no wheeze or rhonchi Gastrointestinal-nontender, bowel sound+. Abdomen distended, 1+ Musculoskeletal-no acute joint swelling or tenderness or redness# Lower extremity- no leg edema Neurological- patient on sedation, details could not be done Skin- no acute rash or purpura laboratory and microbiology Laboratory Tests 11/19/24 04:47 11/18/24 04:39 Test 11/18/24 04:39 Range/Units Serum Glucose 101 74-106 mg/dL Microbiology Date/Time Source Procedure Growth Status 11/13/24 04:35 Nose MRSA Screen - Final Complete 11/12/24 03:52 Voided Urine Urine Culture - Final Complete 11/12/24 03:30 Blood Blood Culture - Final NO GROWTH AFTER 5 DAYS OF INCUBATION. Complete 11/12/24 01:20 Peritoneal Fluid Gram Stain - Final Complete 11/12/24 01:20 Peritoneal Fluid Body Fluid Culture - Final Complete Problem List/Assessment/Plan Problem List/Assessment/Plan Assessment-patient is 29 years old male with a history of cirrhosis of liver due to alcoholism/hypertension came with recurrent hospitalization with history of recurrent paracentesis due to melena and ascites was brought into the hospital due to altered mental status and was to found have hepatic encephalopathy with altered mental status. Patient is intubated to maintain his airway due to altered mental status #Neurological -hepatic encephalopathy due to acute on chronic hepatic failure/septic shock -Patient on mechanical ventilation with sedation -continue current management --respiratory culture - normal oropharyngeal rebekah -blood culture no growth -MRSA screening negative -urine culture-negative #Cardiovascular Septic shock --History of hypertension -on Levophed -avoid dehydration and hepatology or nephrotoxic medications #Respiratory -Suspected Acute hypoxic respiratory failure. -On mechanical ventilation -respiratory culture - normal oropharyngeal rebekah -blood culture -negative -MRSA screening negative -urine culture-no growth ---respiratory culture -normal oropharyngeal rebekah -blood culture no growth -MRSA screening negative -urine culture preliminary no growth #Gastrointestinal -Acute on chronic decompensated liver failure due to alcoholic cirrhosis of liver -Cirrhosis of liver likely due to alcoholism -Malignant ascites -Suspected spontaneous bacterial peritonitis -constipation -Transaminitis likely due to acute on chronic hepatic failure -Splenomegaly -Cholelithiasis -abdominal hernia --respiratory culture so far normal oropharyngeal rebekah -blood culture -negative -MRSA screening negative -urine culture-no growth -patient had ultrasound-guided paracentesis today on 11/16/2024 and 6.5 L of fluid was removed -continue lactulose as prescribed -plan is to have 3-4 bowel movement per day -continue rifaximin 550 mg via OG tube . b.i.d. -continue lactulose 30 mL q.6h #Genitourinary/Renal -alcoholic cirrhosis of the liver, MELD score 26, estimated 3 month mortality 19.6% -spontaneous bacterial peritonitis -suspected hepatorenal syndrome likely due to acute decompensated hepatic failure -ANDRÉS likely due to VMN -mild hyponatremia likely delusional Avoid dehydration and hepatic or nephrotoxic medications Midodrine 10 mg via G-tube t.i.d. Continue vasopressin as prescribed #Infectious -suspected spontaneous bacterial peritonitis -septic shock -continue Zosyn and vancomycin as prescribed -by with OG-tube b.i.d. #Hematological -Severe anemia likely due to hepatic failure/hypersplenism -thrombocytopenia likely due to prism/splenic sequestration -monitor CBC, any sign or symptom of bleeding -status post 2 units of packed blood cell blood transfusion #metabolic or endocrine disorder -Lactic acidosis likely due to hepatic failure/septic shock -metabolic acidosis -hyper ammonia -hypocalcemia -hypoalbuminemia #Skin/alimentary -Jaundice likely due to acute on chronic hepatic failure -avoid hepatic or nephrotoxic medication or dehydration Drips-fentanyl, Versed, norepinephrine, Lines-right internal jugular vein central line was placed on 10/15/2024 ET tube placed on 10/14/2024 Goals of care/advance care planning Code status -DNR ; discussed>15 minutes PUD prophylaxis: SCD DVT prophylaxis: Pantoprazole Plan discussed with Dr. Montano, nursing staff, , father Total critical time spent on patient evaluation, chart review, assessment and plan, total critical time spent including monitoring mechanical ventilation, CPAP trial excluding procedure 84 minutes Plan discussed with: Other (Father, RN) Dietary Evaluation Review Recommendations by RD: Increase Calorie Intake Comments: 1) Increase TF rate to 55 mL/hr goal rate as tolerated. Flush with 50 mL free H2O Q4H Goal rate will provide 1584 kcals, 99g Pro, and 1371 mL free H2O (including flushes) per 24 hrs. Goal rate will meet ~ 97% estimated daily energy needs and ~ 93% estimated daily protein needs 2) Advance to hepatic diet when medically feasible, pending MINING ENGINEER aproval 3) Continue to monitor I&O, labs, and skin integrity. Goal TF rate will meet increased protein needs r/t cirrhosis, critical illness, and low Antolin score Expected Outcomes/Goals: 1) EN rate to increase to meet at least 75% of patient's estimated needs 2) diet to advance 3) labs and skin integrity to improve 4) f/u in 2-3 days Interpretation of weight loss: >7.5% in 3 months Fluid Accumulation (Severe): Moderate Fluid Retention Protein Calorie Malnutrition: Severe Is there a minimum of two crit: Yes Date of Service: Nov 19, 2024 Billing Provider: DHEERAJ MONTANO MD Common Visit Codes: 64608-YTWQUFMO CARE 30-74 MIN, 28219-BODEMBOL CARE-EACH +30MIN GUSTAVO SANTIZO Nov 19, 2024 07:27 DHEERAJ MONTANO MD Nov 20, 2024 15:26
[2024-11-19] MEDS: FLEET ENEMA(ADULT) 135 ML PR ONE (13:51)
[2024-11-19] MEDS: ALBUMIN 25% 50 ML IV SCH (17:00)
[2024-11-20] VITALS (108 sets, daily range): BP systolic 82–126; BP diastolic 43–87; PULSE 64–94; RESP 11–20; TEMP 97–99; O2SAT 96–100
[2024-11-20 05:42] LABS: Basophils # (auto) 0 10 ^3/uL (0-0.2); Basophils % (auto) 0.4 % (0.0-2.0); Eosinophils # (auto) 0.2 10 ^3/uL (0-0.8); Eosinophils % (auto) 3.6 % (0.0-7.0); Hematocrit 25.1 % (41.0-53.0); Hemoglobin 8.2 g/dL (13.5-17.5); Lymphocytes # (auto) 0.4 10 ^3/uL (0.4-5.4); Lymphocytes % (auto) 9.4 % (10.0-50.0); Mean Corpuscular Hemoglobin 29.9 pg (28.0-32.0); Mean Corpuscular Hgb Conc. 32.6 g/dL (32.0-36.0); Mean Corpuscular Volume 91.6 fL (80.0-100.0); Monocytes # (auto) 0.4 10 ^3/uL (0-1.3); Monocytes % (auto) 8.2 % (0.0-12.0); Neutrophils # (auto) 3.6 10 ^3/uL (1.6-8.6); Neutrophils % (auto) 78.4 % (37.0-80.0); Nucleated Red Blood Cells % 0.1 %; Platelet Count (auto) 48 10^3/uL (140-450); Red Blood Cells 2.74 10^6/uL (4.5-5.90); Red Cell Distribution Width 23.5 % (11.8-14.3); White Blood Cell 4.6 10^3/uL (4.4-10.8)
[2024-11-20 06:00] LABS: Alanine Aminotransferase 29 U/L (7-40); Alkaline Phosphatase 99 U/L (46-116); Anion Gap 9 (5-15); BUN/Creatinine Ratio 12.4 (10.0-20.0); Magnesium 2.4 mg/dL (1.6-2.6); Potassium 4.2 mmol/L (3.5-5.1); Sodium 141 mmol/L (136-145)
[2024-11-20 06:01] LABS: Albumin 2.3 g/dL (3.2-4.8); Aspartate Aminotransferase 88 U/L (13-40); Bilirubin, Total 9.1 mg/dL (0.2-1.0); Blood Urea Nitrogen 27 mg/dL (9-23); Carbon Dioxide 19 mmol/L (20-31); Chloride 113 mmol/L (98-107); Glucose 111 mg/dL (74-106); Total Protein 5.5 g/dL (5.7-8.2)
--- NOTE | 2024-11-20 06:04 | DVH ---
EXAM: XR Chest, 1 View CLINICAL INDICATION: PNA TECHNIQUE: Frontal view of the chest. COMPARISON: XY CHEST PORTABLE on DOS: 11/18/24, XY CHEST PORTABLE on DOS: 11/17/24, XY CHEST PORTABLE on DOS: 11/16/24, XY CHEST PORTABLE on DOS: 11/15/24, XY CHEST PORTABLE on DOS: 11/14/24 FINDINGS: LUNGS AND PLEURAL SPACES: Pulmonary venous congestion. No consolidation. No pneumothorax. HEART: Unremarkable. No cardiomegaly. MEDIASTINUM: Unremarkable. Normal mediastinal contour. BONES/JOINTS: Unremarkable. No acute fracture. TUBES, LINES AND DEVICES: Right internal jugular central venous catheter tip in the superior vena c bob. The endotracheal tube (ETT) is in satisfactory position. Enteric tube tip in the stomach. OTHER FINDINGS: . . . IMPRESSION: Pulmonary venous congestion.
[2024-11-20 06:13] LABS: Calcium 8.2 mg/dL (8.7-10.4)
[2024-11-20 06:28] LABS: Anisocytosis Slight
[2024-11-20 06:31] LABS: Platelet Estimate Decreased
--- NOTE | 2024-11-20 07:29 | DVHPNRES ---
Progress Note Date Seen: Nov 20, 2024 Resident Creating Document: GUSTAVO SANTIZO Medical Necessity Reason Pt with a Central, PICC or Fol: Yes The following are medically ne: Central Line, Cartwright Catheter Reason for cartwright catheter: Strict I&O Subjective Review of Systems HPI-Patient is 29 years old male with past medical history of cirrhosis of liver due to alcoholism, hypertension, history of recurrent hospitalization, history of recurrent paracentesis due to malignant ascites was admitted to the hospital due to altered mental status. Patient was brought in by the family due to altered mental status for last 5 days which was getting worse lately. Father patient had some vomiting but no blood. Patient's abdominal of the getting bigger as per father. Patient was recently discharged from [facility] on 11/06/2024. On arrival patient was on altered mental status with suspected metabolic encephalopathy. Patient was intubated to maintain his airway. Initial lab workup revealed WBC 4.9, hemoglobin 8.8, platelet 97, sodium 132, potassium 5.2, normal anion gap 7 BUN 37, serum creatinine 1.68, limit lactic acidosis with lactic acid 3.1> 3.9> 4.2, calcium 8.4, magnesium 2.2, serum bilirubin 4.1, AST 98, ALT 48, alkaline phosphatase 165, ammonia 152, albumin 2.3, analysis not significant for UTI, INR 1.59, CXR no acute cardiopulmonary disease. 11/12/2024 Patient had paracentesis of 4.5 L of fluid early in the morning. Central line was placed in the right internal jugular vein.Patient had today on 11/16/2024 and 6.5 L fluid was removed Patient was recently hospitalized intubated on 10/25/2024 and extubated on 11/01/2024. S/p paracentesis on 10/28/24 - 2.1 liters of ascitic fluid were drained. See separate procedure note for details. S/p 5.2 L paracentesis done on 11/05/2024 Ascitic fluid cultures grew Staph epidermidis E coli septicemia On 10/25/2024 blood culture revealed E coli- sensitive to Levaquin On 10/26/2024 body fluid grew Staphylococcus epidermidis-sensitive to Levaquin CT SCAN -on 10/25/2024 revealed cirrhosis of liver, splenomegaly, cholelithiasis. Patient had paracentesis on 10/21/2024, 10/15/2024, 02/01/25, 11/05/24- Patient was seen today for clinical evaluation. Labs and chart reviewed. Patient is on mechanical ventilation, on sedation, on Levophed Overnight patient's BP 86-104 /48-66, pulse 71-86, temperature-97.5-98.3 I/O -intake 1098, output 315, positive balance 783 Lab workup revealed Respiratory culture Staphylococcus haemolyticus, ordered doxycycline 100 mg IV b.i.d. FOBT positive, Patient was seen by Gastroenterology, recommendation reviewed and appreciated. Patient still with the anemia and thrombocytopenia, patient was put on CPAP trial today ABG on 11/20/2024-pH 7.34, pCO2 34.1, PO2 90.6, bicarbonate 18.2 Patient with pancytopenia Leukopenia WBC 4.9>> 5.7 >2.8> 02.1> 2.3> 2.0> 2.4> 3.3> 4.6 hemoglobin 8.8> 8.1,> 5.7> 7.3> 7.6> 8.1> 8.2> 8.8> 8.2 thrombocytopenia with platelet 97> 98> 50> 42> 45> 46> 42> 44> 48 Sodium 132 >132> 137> 138> 139>> 139> 140> 140> 141 Potassium > 5.2 5.4> 4.8> 4.2> 4.3> 4.2 > 4.1> 4.1> 4.1> 4.2 Serum creatinine 1.68> 1.73> 1.35> 0.81> 0.64> 0.75> 1.25> 1.88> BUN 37> 38> 34> 19> 17> 11> 13> 18> 27 Lactic Acidosis resolved 3.1> 3.9> 4.2?> 3.4> 1.7> 1.8 INR 1.59> 1.70> 1.71> 1.76> 1.78> 1.89 Ammonia 152> 141>45> 52> 46> 39> 48> 45 transaminitis with serum total bilirubin 4.1> 4.1> 5.5> 8.5> 8.6> 7.6> 7.4> 8.4> 9.1 AST-98>79> 58> 52> 57> 60> 84> 88, ALT> 43> 38> 28> 62> 29> 23> 28> 29 , alkaline phosphatase 165> 143>108> 103> 97> 98> 94> 103> 99, ,, hypoalbuminemia with albumin 2.3> 2.0> 2.7> 2.4> 2.3> 2.0> 1.9 Patient had 2 units of packed RBC transferred on 11/13/2024 for severe anemia. Fixed Income Analyst spoke to patient's father Morris, , discussed patient's current medical condition, plan of care and answered his question Objective vital signs Vital Sign Date Time Temp Pulse Resp B/P (MAP) Pulse Ox O2 Delivery O2 Flow Rate FiO2 11/20/24 06:45 76 18 102/66 (78) 100 11/20/24 06:00 Mechanical Ventilator+ 30 30 11/20/24 04:00 98.3 98.3 Total Intake and Output 11/19/24 11/19/24 11/20/24 15:00 23:00 07:00 Intake Total 154.575 ml 341.685 ml 596.325 ml Output Total 190 ml 125 ml Balance 154.575 ml 151.685 ml 471.325 ml medications Current Medications Medications Dose Ordered Sig/Gretchen Route Start Time Stop Time Status Last Admin Dose Admin Midazolam HCl 50 ml @ 1 mls/hr Q24H IV 11/11/24 23:30 11/18/24 06:00 4 MLS/HR Piperacillin Sod/ Tazobactam Sod 100 ml @ 25 mls/hr Q8HR IV 11/12/24 14:00 11/20/24 05:41 25 MLS/HR Fentanyl Citrate 250 ml @ 2.5 mls/hr Q24H IV 11/12/24 05:00 11/18/24 06:02 12.5 MLS/HR Pantoprazole Sodium 40 mg BID IV 11/12/24 10:00 11/19/24 21:44 40 MG Midodrine 10 mg TID@0600,1200,1800 PO 11/13/24 06:00 11/20/24 05:41 10 MG Rifaximin 550 mg BID PO 11/12/24 22:00 11/19/24 21:44 550 MG Polyethylene Glycol 17 gm DAILYPRN PRN PO 11/13/24 12:15 11/18/24 11:50 17 GM Lactulose 30 ml Q4HR PO 11/14/24 14:00 11/20/24 05:41 30 ML Enteral Nutritional Formula 1,000 ml 30ML/HR GT 11/15/24 11:45 11/18/24 02:00 1,000 ML Vasopressin 20 units/Sodium Chloride 100 ml @ 9 mls/hr Q11H7M IV 11/16/24 16:30 Norepinephrine Bitartrate 250 ml @ 1.875 mls/ hr Q24H IV 11/17/24 15:30 11/19/24 21:46 5.625 MLS/HR Dexmedetomidine HCl 400 mcg/ Dextrose 100 ml @ 3.95 mls/hr Q24H IV 11/17/24 15:30 11/19/24 04:16 5.925 MLS/HR Albumin Human 50 ml @ 100 mls/hr Q8H IV 11/19/24 16:00 11/20/24 08:29 11/20/24 00:02 100 MLS/HR Examination General examination- patient is on sedation, on mechanical ventilation HEENT- PEERLA, no acute nasal discharge Cardiovascular- S1-S2 audible, rate and rhythm regular, no murmur Respiratory- CTAB, no wheeze or rhonchi Gastrointestinal-nontender, bowel sound+. Abdomen distended, 1+ Musculoskeletal-no acute joint swelling or tenderness or redness# Lower extremity- no leg edema Neurological- patient on sedation, details could not be done Skin- no acute rash or purpura laboratory and microbiology Laboratory Tests 11/20/24 05:08 Test 11/20/24 05:08 Range/Units Serum Glucose 111 H 74-106 mg/dL Microbiology Date/Time Source Procedure Growth Status 11/13/24 04:35 Nose MRSA Screen - Final Complete 11/12/24 03:52 Voided Urine Urine Culture - Final Complete 11/12/24 03:30 Blood Blood Culture - Final NO GROWTH AFTER 5 DAYS OF INCUBATION. Complete 11/12/24 01:20 Peritoneal Fluid Gram Stain - Final Complete 11/12/24 01:20 Peritoneal Fluid Body Fluid Culture - Final Complete Problem List/Assessment/Plan Problem List/Assessment/Plan Assessment-patient is 29 years old male with a history of cirrhosis of liver due to alcoholism/hypertension came with recurrent hospitalization with history of recurrent paracentesis due to melena and ascites was brought into the hospital due to altered mental status and was to found have hepatic encephalopathy with altered mental status. Patient is intubated to maintain his airway due to altered mental status #Neurological -hepatic encephalopathy due to acute on chronic hepatic failure/septic shock -Patient on mechanical ventilation with sedation -continue current management --respiratory culture - normal oropharyngeal rebekah -blood culture no growth -MRSA screening negative -urine culture-negative #Cardiovascular Septic shock --History of hypertension -on Levophed -avoid dehydration and hepatology or nephrotoxic medications #Respiratory -Suspected Acute hypoxic respiratory failure. -On mechanical ventilation -respiratory culture - normal oropharyngeal rebekah -blood culture -negative -MRSA screening negative -urine culture-no growth ---respiratory culture -normal oropharyngeal rebekah -blood culture no growth -MRSA screening negative -urine culture preliminary no growth #Gastrointestinal -Acute on chronic decompensated liver failure due to alcoholic cirrhosis of liver -Cirrhosis of liver likely due to alcoholism -Malignant ascites -Suspected spontaneous bacterial peritonitis -constipation -Transaminitis likely due to acute on chronic hepatic failure -Splenomegaly -Cholelithiasis -abdominal hernia --respiratory culture so far normal oropharyngeal rebekah -blood culture -negative -MRSA screening negative -urine culture-no growth -patient had ultrasound-guided paracentesis today on 11/16/2024 and 6.5 L of fluid was removed -continue lactulose as prescribed -plan is to have 3-4 bowel movement per day -continue rifaximin 550 mg via OG tube . b.i.d. -continue lactulose 30 mL q.6h #Genitourinary/Renal -alcoholic cirrhosis of the liver, MELD score 26, estimated 3 month mortality 19.6% -spontaneous bacterial peritonitis -suspected hepatorenal syndrome likely due to acute decompensated hepatic failure -ANDRÉS likely due to VMN -mild hyponatremia likely delusional -FOBT Positive, -status post GI consult Avoid dehydration and hepatic or nephrotoxic medications Midodrine 10 mg via G-tube t.i.d. Continue vasopressin as prescribed #Infectious -suspected spontaneous bacterial peritonitis -septic shock -continue Zosyn and vancomycin as prescribed -by with OG-tube b.i.d. #Hematological -Severe anemia likely due to hepatic failure/hypersplenism -thrombocytopenia likely due to prism/splenic sequestration -monitor CBC, any sign or symptom of bleeding -status post 2 units of packed blood cell blood transfusion #metabolic or endocrine disorder -Lactic acidosis likely due to hepatic failure/septic shock -metabolic acidosis -hyper ammonia -hypocalcemia -hypoalbuminemia #Skin/alimentary -Jaundice likely due to acute on chronic hepatic failure -avoid hepatic or nephrotoxic medication or dehydration Drips-levophed Lines-right internal jugular vein central line was placed on 10/15/2024 ET tube placed on 10/14/2024 Goals of care/advance care planning Code status -DNR ; discussed>15 minutes PUD prophylaxis: SCD DVT prophylaxis: Pantoprazole Plan discussed with Dr. Montano, nursing staff, , father Total critical time spent on patient evaluation, chart review, assessment and plan, total critical time spent including monitoring mechanical ventilation, CPAP TRIAL excluding procedures was 81 minutes Plan discussed with: Other (RN, Father) My Orders My Orders Orders - GUSTAVO SANTIZO RESIDENT Procedure Category Date Status Time * Radiologist Consult CONS 11/19/24 Transmitted 17:19 Abg W/ Co-Ox RT 11/20/24 Logged 05:00 Chest Portable XY 11/20/24 Resulted 04:00 Dietary Evaluation Review Recommendations by RD: Increase Calorie Intake Comments: 1) Increase TF rate to 55 mL/hr goal rate as tolerated. Flush with 50 mL free H2O Q4H Goal rate will provide 1584 kcals, 99g Pro, and 1371 mL free H2O (including flushes) per 24 hrs. Goal rate will meet ~ 97% estimated daily energy needs and ~ 93% estimated daily protein needs 2) Advance to hepatic diet when medically feasible, pending TUFTING CREELER aproval 3) Continue to monitor I&O, labs, and skin integrity. Goal TF rate will meet increased protein needs r/t cirrhosis, critical illness, and low Antolin score Expected Outcomes/Goals: 1) EN rate to increase to meet at least 75% of patient's estimated needs 2) diet to advance 3) labs and skin integrity to improve 4) f/u in 2-3 days Interpretation of weight loss: >7.5% in 3 months Fluid Accumulation (Severe): Moderate Fluid Retention Protein Calorie Malnutrition: Severe Is there a minimum of two crit: Yes Date of Service: Nov 20, 2024 Billing Provider: DHEERAJ MONTANO MD Common Visit Codes: 63435-[id number] CARE 30-74 MIN, [id number] CARE-EACH +30MIN GUSTAVO SANTIZO RESIDENT Nov 20, 2024 07:29 DHEERAJ MONTANO MD Nov 21, 2024 16:15
[2024-11-20 08:56] LABS: Base Excess -6.8 mmol/L (-2.0-3.0)
[2024-11-20] MEDS: DOXYCYCLINE 100MG/100ML 100 ML IV ONE (10:23)
--- NOTE | 2024-11-20 10:55 | DVH ---
ULTRASOUND ABDOMEN LIMITED INDICATION: FLUID CHECK TECHNIQUE: Ultrasound of the 4 quadrants of the abdominal cavity. COMPARISON: US ABDOMEN LIMITED on DOS: 11/14/24, US ABDOMEN LIMITED on DOS: 11/05/24 FINDINGS: There is small volume of ascites seen in all 4 quadrants of the abdomen. IMPRESSION: 1. Small volume of ascites seen in all 4 quadrants of the abdomen. HS:Y
[2024-11-20] MEDS: ALBUMIN 25% 50 ML IV SCH (13:09)
--- NOTE | 2024-11-20 14:16 | DVHINCON2 ---
GI Consult Consult Note GI consult note Date of Consultation: 11/20/2024 Chief Complaint: Hepatic encephalopathy and severe anemia Referring Physician:Dr Jansen H&P: 29-year-old male with past medical history of liver cirrhosis secondary to alcohol use, presented to ER with altered level of consciousness Patient is intubated. History from chart and RN Patient is status post 2 units PRBCs transfused Patient had large bowel movement yesterday, both solid and liquid, no melena. Stool is positive for occult blood SP EGD 12/16/2023, pathology mild chronic inactive gastritis Past Medical History: Anemia (w/thrombocytopenia ), Anxiety, Gallstones, HTN, Liver (cirrhosis due to alcohol abuse ), Seizures acute respiratory failure ascites w/paracentesis hepatic encephalopathy sepsis Past Surgical History: Hernia repair Paracentesis Social History: Smoker: Non-Smoker Alcohol: Heavy Drugs: Denies Drug Use Lives In: Home Family History: Noncontributory Review of Systems: As above Physical exam: General: Patient is intubated and sedated Chest: lung santos clear to auscultation Heart: RRR, no murmur Abdomen: [id number]-distended, +BS Labs: Test 11/20/24 05:08 Range/Units Serum Glucose 111 H 74-106 mg/dL Microbiology Date/Time Source Procedure Growth Status 11/13/24 04:35 Nose MRSA Screen - Final Complete 11/12/24 03:52 Voided Urine Urine Culture - Final Complete 11/12/24 03:30 Blood Blood Culture - Final NO GROWTH AFTER 5 DAYS OF INCUBATION. Complete 11/12/24 01:20 Peritoneal Fluid Gram Stain - Final Complete 11/12/24 01:20 Peritoneal Fluid Body Fluid Culture - Final Complete Imaging: Abdominal ultrasound IMPRESSION: 1. Small volume of ascites seen in all 4 quadrants of the abdomen. Assessment: Hepatic encephalopathy Liver cirrhosis secondary to alcohol Ascites Anemia Plan: -discussed with Dr. Gray Monitor labs Continue lactulose Continue antibiotics Vitamin K Poor prognosis Discussed plan with RN Thank you for this consult Date of Service: Nov 20, 2024 Billing Provider: KATHY ZHU Common Visit Codes: CONSULT ONLY Consultation Codes: [id number] CONSULT <60MIN KATHY ZHU Nov 20, 2024 14:16
[2024-11-20] MEDS: PHYTONADIONE (VIT K)10 MG/ML 1ML VIAL SUBCUT ONE (15:34)
[2024-11-20] MEDS: DOXYCYCLINE 100MG/100ML 100 ML IV SCH (20:03)
[2024-11-21] VITALS (106 sets, daily range): BP systolic 85–127; BP diastolic 42–84; PULSE 60–81; RESP 16–30; TEMP 96.7–97.7; O2SAT 97–100
[2024-11-21 05:32] LABS: Basophils # (auto) 0 10 ^3/uL (0-0.2); Basophils % (auto) 0.6 % (0.0-2.0); Eosinophils # (auto) 0.2 10 ^3/uL (0-0.8); Eosinophils % (auto) 4.2 % (0.0-7.0); Hematocrit 22.3 % (41.0-53.0); Hemoglobin 7.4 g/dL (13.5-17.5); Lymphocytes # (auto) 0.4 10 ^3/uL (0.4-5.4); Lymphocytes % (auto) 9.9 % (10.0-50.0); Mean Corpuscular Hemoglobin 30.4 pg (28.0-32.0); Mean Corpuscular Hgb Conc. 33.2 g/dL (32.0-36.0); Mean Corpuscular Volume 91.5 fL (80.0-100.0); Monocytes # (auto) 0.4 10 ^3/uL (0-1.3); Monocytes % (auto) 9.4 % (0.0-12.0); Neutrophils # (auto) 3.3 10 ^3/uL (1.6-8.6); Neutrophils % (auto) 75.9 % (37.0-80.0); Platelet Count (auto) 38 10^3/uL (140-450); Red Blood Cells 2.44 10^6/uL (4.5-5.90); Red Cell Distribution Width 23.6 % (11.8-14.3); White Blood Cell 4.4 10^3/uL (4.4-10.8)
[2024-11-21 05:54] LABS: INR 1.83 (0.9-1.15); Prothrombin Time 18.3 sec (9.3-11.8)
[2024-11-21 06:29] LABS: Alanine Aminotransferase 29 U/L (7-40); Alkaline Phosphatase 97 U/L (46-116); Anion Gap 8 (5-15); Potassium 3.8 mmol/L (3.5-5.1); Sodium 141 mmol/L (136-145)
[2024-11-21 06:32] LABS: BUN/Creatinine Ratio 14.3 (10.0-20.0)
--- NOTE | 2024-11-21 06:34 | DVHPNRES ---
Progress Note Date Seen: Nov 21, 2024 Resident Creating Document: GUSTAVO SANTIZO Medical Necessity Reason Pt with a Central, PICC or Fol: Yes The following are medically ne: Central Line, Cartwright Catheter Reason for cartwright catheter: Strict I&O Subjective Review of Systems HPI-Patient is 29 years old male with past medical history of cirrhosis of liver due to alcoholism, hypertension, history of recurrent hospitalization, history of recurrent paracentesis due to malignant ascites was admitted to the hospital due to altered mental status. Patient was brought in by the family due to altered mental status for last 5 days which was getting worse lately. Father patient had some vomiting but no blood. Patient's abdominal of the getting bigger as per father. Patient was recently discharged from [facility] on 11/06/2024. On arrival patient was on altered mental status with suspected metabolic encephalopathy. Patient was intubated to maintain his airway. Initial lab workup revealed WBC 4.9, hemoglobin 8.8, platelet 97, sodium 132, potassium 5.2, normal anion gap 7 BUN 37, serum creatinine 1.68, limit lactic acidosis with lactic acid 3.1> 3.9> 4.2, calcium 8.4, magnesium 2.2, serum bilirubin 4.1, AST 98, ALT 48, alkaline phosphatase 165, ammonia 152, albumin 2.3, analysis not significant for UTI, INR 1.59, CXR no acute cardiopulmonary disease. 11/12/2024 Patient had paracentesis of 4.5 L of fluid early in the morning. Central line was placed in the right internal jugular vein.Patient had today on 11/16/2024 and 6.5 L fluid was removed Patient was recently hospitalized intubated on 10/25/2024 and extubated on 11/01/2024. S/p paracentesis on 10/28/24 - 2.1 liters of ascitic fluid were drained. See separate procedure note for details. S/p 5.2 L paracentesis done on 11/05/2024 Ascitic fluid cultures grew Staph epidermidis E coli septicemia On 10/25/2024 blood culture revealed E coli- sensitive to Levaquin On 10/26/2024 body fluid grew Staphylococcus epidermidis-sensitive to Levaquin CT SCAN -on 10/25/2024 revealed cirrhosis of liver, splenomegaly, cholelithiasis. Patient had paracentesis on 10/21/2024, 10/15/2024, 02/01/25, 11/05/24- Patient was seen today for clinical evaluation. Labs and chart reviewed. Patient is on mechanical ventilation, on sedation, on Levophed Overnight patient's BP ranging from-82-111/43-68, pulse 64-80, temperature 97.0- 98.8 I/O -intake 1579, output 520, positive balance 1059 Lab workup revealed ABG on 11/21/2024-pH 7.37,, pCO2 31.8, PO2 94.0, bicarbonate 18.2 Patient was not ready for CPAP trial today Plan is to do a CPAP trial tomorrow discontinued doxycycline Patient with pancytopenia Leukopenia WBC 4.9>> 5.7 >2.8> 02.1> 2.3> 2.0> 2.4> 3.3> 4.6> 4.4 hemoglobin 8.8> 8.1,> 5.7> 7.3> 7.6> 8.1> 8.2> 8.8> 8.2> 7.4 thrombocytopenia with platelet 97> 98> 50> 42> 45> 46> 42> 44> 48> 38 Sodium 132 >132> 137> 138> 139>> 139> 140> 140> 141> 1.41 Potassium > 5.2 5.4> 4.8> 4.2> 4.3> 4.2 > 4.1> 4.1> 4.1> 4.2> 3.8 Serum creatinine 1.68> 1.73> 1.35> 0.81> 0.64> 0.75> 1.25> 1.88> 2.10 BUN 37> 38> 34> 19> 17> 11> 13> 18> 27> 30 Lactic Acidosis resolved 3.1> 3.9> 4.2?> 3.4> 1.7> 1.8> INR 1.59> 1.70> 1.71> 1.76> 1.78> 1.89> 1.83 Ammonia 152> 141>45> 52> 46> 39> 48> 45> 45 transaminitis with serum total bilirubin 4.1> 4.1> 5.5> 8.5> 8.6> 7.6> 7.4> 8.4> 9.1> 9.6 AST-98>79> 58> 52> 57> 60> 84> 88> 84, ALT> 43> 38> 28> 62> 29> 23> 28> 29 > 29, alkaline phosphatase 165> 143>108> 103> 97> 98> 94> 103> 99> 97, ,, hypoalbuminemia with albumin 2.3> 2.0> 2.7> 2.4> 2.3> 2.0> 1.9> 2.3> 2.8 Patient had 2 units of packed RBC transferred on 11/13/2024 for severe anemia. Necktie Turner spoke to patient's father Morris, , discussed patient's current medical condition, plan of care and answered his question Objective vital signs Vital Sign Date Time Temp Pulse Resp B/P (MAP) Pulse Ox O2 Delivery O2 Flow Rate FiO2 11/21/24 06:15 76 17 100/65 (77) 99 11/21/24 06:00 Mechanical Ventilator+ 30 30 11/21/24 04:00 96.7 96.7 11/20/24 17:20 8.0 Total Intake and Output 11/20/24 11/20/24 11/21/24 14:59 22:59 06:59 Intake Total 200.125 ml 730.625 ml 648.800 ml Output Total 220 ml 300 ml Balance 200.125 ml 510.625 ml 348.800 ml medications Current Medications Medications Dose Ordered Sig/Gretchen Route Start Time Stop Time Status Last Admin Dose Admin Midazolam HCl 50 ml @ 1 mls/hr Q24H IV 11/11/24 23:30 11/18/24 06:00 4 MLS/HR Piperacillin Sod/ Tazobactam Sod 100 ml @ 25 mls/hr Q8HR IV 11/12/24 14:00 11/21/24 05:42 25 MLS/HR Fentanyl Citrate 250 ml @ 2.5 mls/hr Q24H IV 11/12/24 05:00 11/18/24 06:02 12.5 MLS/HR Pantoprazole Sodium 40 mg BID IV 11/12/24 10:00 11/20/24 21:59 40 MG Midodrine 10 mg TID@0600,1200,1800 PO 11/13/24 06:00 11/21/24 05:41 10 MG Rifaximin 550 mg BID PO 11/12/24 22:00 11/20/24 21:59 550 MG Polyethylene Glycol 17 gm DAILYPRN PRN PO 11/13/24 12:15 11/18/24 11:50 17 GM Lactulose 30 ml Q4HR PO 11/14/24 14:00 11/21/24 05:41 30 ML Enteral Nutritional Formula 1,000 ml 30ML/HR GT 11/15/24 11:45 11/18/24 02:00 1,000 ML Vasopressin 20 units/Sodium Chloride 100 ml @ 9 mls/hr Q11H7M IV 11/16/24 16:30 Norepinephrine Bitartrate 250 ml @ 1.875 mls/ hr Q24H IV 11/17/24 15:30 11/19/24 21:46 5.625 MLS/HR Dexmedetomidine HCl 400 mcg/ Dextrose 100 ml @ 3.95 mls/hr Q24H IV 11/17/24 15:30 11/19/24 04:16 5.925 MLS/HR Doxycycline Hyclate 100 ml @ 50 mls/hr Q12H IV 11/20/24 20:00 11/20/24 20:03 50 MLS/HR Examination General examination- patient is on sedation, on mechanical ventilation HEENT- PEERLA, no acute nasal discharge Cardiovascular- S1-S2 audible, rate and rhythm regular, no murmur Respiratory- CTAB, no wheeze or rhonchi Gastrointestinal-nontender, bowel sound+. Abdomen distended ++ Musculoskeletal-no acute joint swelling or tenderness or redness# Lower extremity- no leg edema Neurological- patient on sedation, details could not be done Skin- no acute rash or purpura laboratory and microbiology Laboratory Tests 11/21/24 04:58 Test 11/21/24 04:58 Range/Units Serum Glucose Pending Microbiology Date/Time Source Procedure Growth Status 11/13/24 04:35 Nose MRSA Screen - Final Complete 11/12/24 03:52 Voided Urine Urine Culture - Final Complete 11/12/24 03:30 Blood Blood Culture - Final NO GROWTH AFTER 5 DAYS OF INCUBATION. Complete 11/12/24 01:20 Peritoneal Fluid Gram Stain - Final Complete 11/12/24 01:20 Peritoneal Fluid Body Fluid Culture - Final Complete Problem List/Assessment/Plan Problem List/Assessment/Plan Assessment-patient is 29 years old male with a history of cirrhosis of liver due to alcoholism/hypertension came with recurrent hospitalization with history of recurrent paracentesis due to melena and ascites was brought into the hospital due to altered mental status and was to found have hepatic encephalopathy with altered mental status. Patient is intubated to maintain his airway due to altered mental status #Neurological -hepatic encephalopathy due to acute on chronic hepatic failure/septic shock -Patient on mechanical ventilation with sedation -continue current management --respiratory culture - normal oropharyngeal rebekah -blood culture no growth -MRSA screening negative -urine culture-negative #Cardiovascular Septic shock --History of hypertension -on Levophed -avoid dehydration and hepatology or nephrotoxic medications #Respiratory -Suspected Acute hypoxic respiratory failure. -On mechanical ventilation -respiratory culture - normal oropharyngeal rebekah -blood culture -negative -MRSA screening negative -urine culture-no growth ---respiratory culture -normal oropharyngeal rebekah -blood culture no growth -MRSA screening negative -urine culture preliminary no growth #Gastrointestinal -Acute on chronic decompensated liver failure due to alcoholic cirrhosis of liver -Cirrhosis of liver likely due to alcoholism -Malignant ascites -Suspected spontaneous bacterial peritonitis -constipation -Transaminitis likely due to acute on chronic hepatic failure -Splenomegaly -Cholelithiasis -abdominal hernia --respiratory culture so far normal oropharyngeal rebekah -blood culture -negative -MRSA screening negative -urine culture-no growth -patient had ultrasound-guided paracentesis on 11/16/2024 and 6.5 L of fluid was removed -continue lactulose as prescribed -plan is to have 3-4 bowel movement per day -continue rifaximin 550 mg via OG tube . b.i.d. -continue lactulose 30 mL q.6h #Genitourinary/Renal -alcoholic cirrhosis of the liver, MELD score 26, estimated 3 month mortality 19.6% -spontaneous bacterial peritonitis -suspected hepatorenal syndrome likely due to acute decompensated hepatic failure -ANDRÉS likely due to VMN -mild hyponatremia likely delusional -FOBT Positive, -status post GI consult Avoid dehydration and hepatic or nephrotoxic medications Midodrine 10 mg via G-tube t.i.d. Continue vasopressin as prescribed #Infectious -suspected spontaneous bacterial peritonitis -septic shock -continue Zosyn and vancomycin as prescribed -by with OG-tube b.i.d. #Hematological -Severe anemia likely due to hepatic failure/hypersplenism -thrombocytopenia likely due to prism/splenic sequestration -monitor CBC, any sign or symptom of bleeding -status post 2 units of packed blood cell blood transfusion #metabolic or endocrine disorder -Lactic acidosis likely due to hepatic failure/septic shock -metabolic acidosis -hyper ammonia -hypocalcemia -hypoalbuminemia #Skin/alimentary -Jaundice likely due to acute on chronic hepatic failure -avoid hepatic or nephrotoxic medication or dehydration Drips-levophed, Fentabyl ET tube placed on 10/14/2024 Goals of care/advance care planning Code status -DNR ; discussed>15 minutes PUD prophylaxis: SCD DVT prophylaxis: Pantoprazole Plan discussed with Dr. Montano, nursing staff, , father Total critical time spent on patient evaluation, chart review, assessment and plan, total critical time spent including monitoring mechanical ventilation excluding procedure 52 minutes Plan discussed with: Other (RN, father) My Orders My Orders Orders - GUSTAVO SANTIZO RESIDENT Procedure Category Date Status Time Doxycycline PHA 11/20/24 In Process 100mg/100ml 20:00 Abg W/ Co-Ox RT 11/20/24 Logged 07:00 Abdomen Limited US 11/20/24 Resulted 09:03 * [facility] CONS 11/20/24 Transmitted 09:21 Cpap Trial For Am ORDERS 11/20/24 Transmitted 12:39 Complete Blood Count LAB 11/21/24 In Process 04:00 Comprehensive LAB 11/21/24 In Process Metabolic Panel 04:00 Chest Portable XY 11/21/24 Logged 04:00 Abg W/ Co-Ox RT 11/21/24 Logged 05:00 Rbc Morphology LAB 11/21/24 In Process 04:58 Dietary Evaluation Review Recommendations by RD: Increase Calorie Intake Comments: 1) Increase TF rate to 55 mL/hr goal rate as tolerated. Flush with 50 mL free H2O Q4H Goal rate will provide 1584 kcals, 99g Pro, and 1371 mL free H2O (including flushes) per 24 hrs. Goal rate will meet ~ 97% estimated daily energy needs and ~ 93% estimated daily protein needs 2) Advance to hepatic diet when medically feasible, pending FLIGHT PHYSICIAN aproval 3) Continue to monitor I&O, labs, and skin integrity. Goal TF rate will meet increased protein needs r/t cirrhosis, critical illness, and low Antolin score Expected Outcomes/Goals: 1) EN rate to increase to meet at least 75% of patient's estimated needs 2) diet to advance 3) labs and skin integrity to improve 4) f/u in 2-3 days Interpretation of weight loss: >7.5% in 3 months Fluid Accumulation (Severe): Moderate Fluid Retention Protein Calorie Malnutrition: Severe Is there a minimum of two crit: Yes Date of Service: Nov 21, 2024 Billing Provider: DHEERAJ MONTANO MD Common Visit Codes: [id number] CARE 30-74 MIN GUSTAVO SANTIZO RESIDENT Nov 21, 2024 06:34 DHEERAJ MONTANO MD Nov 22, 2024 12:57
[2024-11-21 06:37] LABS: Albumin 2.8 g/dL (3.2-4.8); Aspartate Aminotransferase 84 U/L (13-40); Bilirubin, Total 9.6 mg/dL (0.2-1.0); Blood Urea Nitrogen 30 mg/dL (9-23); Calcium 8.1 mg/dL (8.7-10.4); Carbon Dioxide 20 mmol/L (20-31); Chloride 113 mmol/L (98-107); Glucose 107 mg/dL (74-106); Total Protein 5.7 g/dL (5.7-8.2)
[2024-11-21 06:56] LABS: Anisocytosis Slight
[2024-11-21 06:59] LABS: Ovalocytes FEW
[2024-11-21 07:01] LABS: Platelet Estimate Decreased
--- NOTE | 2024-11-21 07:04 | DVH ---
EXAM: XR Chest, 1 View CLINICAL INDICATION: PNA TECHNIQUE: Frontal view of the chest. COMPARISON: XY CHEST PORTABLE on DOS: 11/20/24, XY CHEST PORTABLE on DOS: 11/18/24, XY CHEST PORTABLE on DOS: 11/17/24, XY CHEST PORTABLE on DOS: 11/16/24, XY CHEST PORTABLE on DOS: 11/15/24 FINDINGS: LUNGS AND PLEURAL SPACES: Pulmonary venous congestion. Low lung volumes. No consolidation. No pn eumothorax. HEART: Unremarkable. No cardiomegaly. MEDIASTINUM: Unremarkable. Normal mediastinal contour. BONES/JOINTS: Unremarkable. No acute fracture. TUBES, LINES AND DEVICES: Stable tubes and lines. OTHER FINDINGS: . . IMPRESSION: Pulmonary venous congestion.
[2024-11-21 07:35] LABS: Base Excess -6.4 mmol/L (-2.0-3.0)
[2024-11-21] MEDS: fentaNYL Drip 2500mCg/250mlNS 250 ML IV SCH (10:45)
--- NOTE | 2024-11-21 18:26 | DVHPN2 ---
Progress Note - Dictate Date Seen: Nov 21, 2024 Medical Necessity Reason Pt with a Central, PICC or Fol: Yes The following are medically ne: Central Line, Cartwright Catheter Reason for cartwright catheter: Strict I&O Subjective No new complaints Patient is being tapered off sedation Not enough fluid present for paracentesis vital signs Vital Sign Date Time Temp Pulse Resp B/P (MAP) Pulse Ox O2 Delivery O2 Flow Rate FiO2 11/21/24 18:00 18 100 Mechanical Ventilator+ 30 30 11/21/24 18:00 61 107/76 (86) 11/21/24 16:30 96.9 96.9 11/20/24 17:20 8.0 Total Intake and Output 11/20/24 11/20/24 11/21/24 15:00 23:00 07:00 Intake Total 198.250 ml 755.625 ml 632.125 ml Output Total 220 ml 300 ml Balance 198.250 ml 535.625 ml 332.125 ml medications Current Medications Medications Dose Ordered Sig/Gretchen Route Start Time Stop Time Status Last Admin Dose Admin Midazolam HCl 50 ml @ 1 mls/hr Q24H IV 11/11/24 23:30 11/18/24 06:00 4 MLS/HR Piperacillin Sod/ Tazobactam Sod 100 ml @ 25 mls/hr Q8HR IV 11/12/24 14:00 11/21/24 13:56 25 MLS/HR Pantoprazole Sodium 40 mg BID IV 11/12/24 10:00 11/21/24 10:45 40 MG Midodrine 10 mg TID@0600,1200,1800 PO 11/13/24 06:00 11/21/24 17:13 10 MG Rifaximin 550 mg BID PO 11/12/24 22:00 11/21/24 10:46 550 MG Polyethylene Glycol 17 gm DAILYPRN PRN PO 11/13/24 12:15 11/18/24 11:50 17 GM Lactulose 30 ml Q4HR PO 11/14/24 14:00 11/21/24 17:13 30 ML Enteral Nutritional Formula 1,000 ml 30ML/HR GT 11/15/24 11:45 11/18/24 02:00 1,000 ML Vasopressin 20 units/Sodium Chloride 100 ml @ 9 mls/hr Q11H7M IV 11/16/24 16:30 Norepinephrine Bitartrate 250 ml @ 1.875 mls/ hr Q24H IV 11/17/24 15:30 11/21/24 07:56 7.5 MLS/HR Fentanyl Citrate 250 ml @ 2.5 mls/hr Q24H IV 11/21/24 09:45 11/21/24 10:45 5 MLS/HR Dexmedetomidine HCl 400 mcg/ Dextrose 100 ml @ 4.17 mls/hr [id number] IV 11/21/24 09:45 11/21/24 10:47 4.17 MLS/HR objective General: Patient is intubated and sedated Chest: lung santos clear to auscultation Heart: RRR, no murmur Abdomen: [id number]-distended, +BS laboratory and microbiology Laboratory Tests 11/21/24 04:58 Test 11/21/24 04:58 Range/Units Serum Glucose 107 H 74-106 mg/dL Problems(with codes): (1) Hepatic encephalopathy (2) Generalized weakness (3) E. coli septicemia (4) Ascites (5) Intractable abdominal pain (6) Elevated liver enzymes (7) Gallstones (8) Splenomegaly Prognosis Plan Continue to monitor labs Continue to monitor gastric residuals Continue lactulose Wean off sedation and possible CPAP trial Dietary Evaluation Review Recommendations by RD: Increase Calorie Intake Comments: 1) Increase TF rate to 55 mL/hr goal rate as tolerated. Flush with 50 mL free H2O Q4H Goal rate will provide 1584 kcals, 99g Pro, and 1371 mL free H2O (including flushes) per 24 hrs. Goal rate will meet ~ 97% estimated daily energy needs and ~ 93% estimated daily protein needs 2) Advance to hepatic diet when medically feasible, pending CHISEL GRINDER aproval 3) Continue to monitor I&O, labs, and skin integrity. Goal TF rate will meet increased protein needs r/t cirrhosis, critical illness, and low Antolin score Expected Outcomes/Goals: 1) EN rate to increase to meet at least 75% of patient's estimated needs 2) diet to advance 3) labs and skin integrity to improve 4) f/u in 2-3 days Interpretation of weight loss: >7.5% in 3 months Fluid Accumulation (Severe): Moderate Fluid Retention Protein Calorie Malnutrition: Severe Is there a minimum of two crit: Yes Plan discussed with: Other (None) KATELYN JOYCE MD Nov 21, 2024 18:26
[2024-11-22] VITALS (109 sets, daily range): BP systolic 80–114; BP diastolic 49–73; PULSE 62–73; RESP 9–21; TEMP 97.6–98.2; O2SAT 98–100
[2024-11-22 05:02] LABS: Basophils # (auto) 0 10 ^3/uL (0-0.2); Eosinophils # (auto) 0.2 10 ^3/uL (0-0.8); Hemoglobin 7.8 g/dL (13.5-17.5); Lymphocytes # (auto) 0.3 10 ^3/uL (0.4-5.4); Mean Corpuscular Hgb Conc. 33.3 g/dL (32.0-36.0); Monocytes # (auto) 0.3 10 ^3/uL (0-1.3)
[2024-11-22 05:04] LABS: Basophils % (auto) 0.4 % (0.0-2.0); Hematocrit 23.4 % (41.0-53.0); Lymphocytes % (auto) 8.2 % (10.0-50.0); Mean Corpuscular Hemoglobin 30.5 pg (28.0-32.0); Mean Corpuscular Volume 91.5 fL (80.0-100.0); Monocytes % (auto) 8.2 % (0.0-12.0); Neutrophils # (auto) 2.6 10 ^3/uL (1.6-8.6); Neutrophils % (auto) 78.2 % (37.0-80.0); Nucleated Red Blood Cells % 0.1 %; Platelet Count (auto) 36 10^3/uL (140-450); Red Blood Cells 2.56 10^6/uL (4.5-5.90); White Blood Cell 3.3 10^3/uL (4.4-10.8)
[2024-11-22 05:09] LABS: Red Cell Distribution Width 23.2 % (11.8-14.3)
[2024-11-22 05:16] LABS: INR 1.88 (0.9-1.15); Prothrombin Time 18.7 sec (9.3-11.8)
[2024-11-22 05:24] LABS: Alanine Aminotransferase 29 U/L (7-40); Alkaline Phosphatase 99 U/L (46-116); Anion Gap 8 (5-15); Carbon Dioxide 20 mmol/L (20-31); Potassium 3.9 mmol/L (3.5-5.1); Sodium 142 mmol/L (136-145)
[2024-11-22 05:25] LABS: BUN/Creatinine Ratio 17.4 (10.0-20.0)
[2024-11-22 05:26] LABS: Albumin 2.6 g/dL (3.2-4.8); Aspartate Aminotransferase 76 U/L (13-40); Bilirubin, Total 10.6 mg/dL (0.2-1.0); Blood Urea Nitrogen 28 mg/dL (9-23); Calcium 8.4 mg/dL (8.7-10.4); Chloride 114 mmol/L (98-107); Glucose 120 mg/dL (74-106); Total Protein 5.6 g/dL (5.7-8.2)
--- NOTE | 2024-11-22 05:44 | DVH ---
CHEST RADIOGRAPH Indication: PNA Technique: Single frontal view of the chest was obtained COMPARISON: XY CHEST PORTABLE on DOS: 11/21/24, XY CHEST PORTABLE on DOS: 11/20/24, XY CHEST PORTABLE o n DOS: 11/18/24, XY CHEST PORTABLE on DOS: 11/17/24, XY CHEST PORTABLE on DOS: 11/16/24 FINDINGS: Lines and Tubes: Endotracheal tube, enteric catheter and right central venous catheter in satisfactor y position. Lungs: Low lung volumes. Pleura: No effusion. No pneumothorax. Cardiomediastinal contours: Unremarkable Bones: Unremarkable IMPRESSION: Lines and tubes in satisfactory position. No significant interval change.
[2024-11-22 06:38] LABS: Anisocytosis Slight; Ovalocytes FEW; Platelet Estimate Decreased
[2024-11-22 07:10] LABS: Base Excess -6.6 mmol/L (-2.0-3.0)
--- NOTE | 2024-11-22 08:02 | DVHPNRES ---
Progress Note Date Seen: Nov 22, 2024 Resident Creating Document: GUSTAVO SANTIZO Medical Necessity Reason Pt with a Central, PICC or Fol: Yes The following are medically ne: Central Line, Cartwright Catheter Reason for cartwright catheter: Strict I&O Subjective Review of Systems HPI-Patient is 29 years old male with past medical history of cirrhosis of liver due to alcoholism, hypertension, history of recurrent hospitalization, history of recurrent paracentesis due to malignant ascites was admitted to the hospital due to altered mental status. Patient was brought in by the family due to altered mental status for last 5 days which was getting worse lately. Father patient had some vomiting but no blood. Patient's abdominal of the getting bigger as per father. Patient was recently discharged from [facility] on 11/06/2024. On arrival patient was on altered mental status with suspected metabolic encephalopathy. Patient was intubated to maintain his airway. Initial lab workup revealed WBC 4.9, hemoglobin 8.8, platelet 97, sodium 132, potassium 5.2, normal anion gap 7 BUN 37, serum creatinine 1.68, limit lactic acidosis with lactic acid 3.1> 3.9> 4.2, calcium 8.4, magnesium 2.2, serum bilirubin 4.1, AST 98, ALT 48, alkaline phosphatase 165, ammonia 152, albumin 2.3, analysis not significant for UTI, INR 1.59, CXR no acute cardiopulmonary disease. 11/12/2024 Patient had paracentesis of 4.5 L of fluid early in the morning. Central line was placed in the right internal jugular vein.Patient had today on 11/16/2024 and 6.5 L fluid was removed Patient was recently hospitalized intubated on 10/25/2024 and extubated on 11/01/2024. S/p paracentesis on 10/28/24 - 2.1 liters of ascitic fluid were drained. See separate procedure note for details. S/p 5.2 L paracentesis done on 11/05/2024 Ascitic fluid cultures grew Staph epidermidis E coli septicemia On 10/25/2024 blood culture revealed E coli- sensitive to Levaquin On 10/26/2024 body fluid grew Staphylococcus epidermidis-sensitive to Levaquin CT SCAN -on 10/25/2024 revealed cirrhosis of liver, splenomegaly, cholelithiasis. Patient had paracentesis on 10/21/2024, 10/15/2024, 02/01/25, 11/05/24- Patient was seen today for clinical evaluation. Labs and chart reviewed. Overnight patient's BP ranging from 88-105/50-64, pulse 62-72, 96.9-98.8 I/O- intake 1363, output 61, positive balance 753 Lab workup revealed ABG pH 7.34, pCO2 34.9, PO2 90.8, bicarbonate 18.5 Patient with pancytopenia Failed CPAP trial today, plan is to do a CPAP trial tomorrow a.m., patient still on vasopressor Increase lactulose to Q 2 hours till we get 2-3 bowel movement per day Patient had paracentesis today, 6 L of fluid was removed Leukopenia WBC 4.9>> 5.7 >2.8> 02.1> 2.3> 2.0> 2.4> 3.3> 4.6> 4.4> 3.3 hemoglobin 8.8> 8.1,> 5.7> 7.3> 7.6> 8.1> 8.2> 8.8> 8.2> 7.4> 7.8 thrombocytopenia with platelet 97> 98> 50> 42> 45> 46> 42> 44> 48> 38> 36 Sodium 132 >132> 137> 138> 139>> 139> 140> 140> 141> 1.41> 142 Potassium > 5.2 5.4> 4.8> 4.2> 4.3> 4.2 > 4.1> 4.1> 4.1> 4.2> 3.8> 3.9 Serum creatinine 1.68> 1.73> 1.35> 0.81> 0.64> 0.75> 1.25> 1.88> 2.10> 1.61 BUN 37> 38> 34> 19> 17> 11> 13> 18> 27> 30> 28 Lactic Acidosis resolved 3.1> 3.9> 4.2?> 3.4> 1.7> 1.8> INR 1.59> 1.70> 1.71> 1.76> 1.78> 1.89> 1.83> 1.88 Ammonia 152> 141>45> 52> 46> 39> 48> 45> 45> 65 transaminitis with serum total bilirubin 4.1> 4.1> 5.5> 8.5> 8.6> 7.6> 7.4> 8.4> 9.1> 9.6> 10.6 AST-98>79> 58> 52> 57> 60> 84> 88> 84> 76, ALT> 43> 38> 28> 62> 29> 23> 28> 29 > 29> 29, [employer] spoke to patient's father Morris, , discussed patient's current medical condition, plan of care and answered his question Objective vital signs Vital Sign Date Time Temp Pulse Resp B/P (MAP) Pulse Ox O2 Delivery O2 Flow Rate FiO2 11/22/24 07:15 65 18 94/62 (73) 100 11/22/24 06:18 30 11/22/24 06:02 Mechanical Ventilator+ 11/22/24 04:00 97.7 97.7 11/20/24 17:20 8.0 Total Intake and Output 11/21/24 11/21/24 11/22/24 15:00 23:00 07:00 Intake Total 342.295 ml 453.765 ml 659.805 ml Output Total 360 ml 250 ml Balance 342.295 ml 93.765 ml 409.805 ml medications Current Medications Medications Dose Ordered Sig/Gretchen Route Start Time Stop Time Status Last Admin Dose Admin Midazolam HCl 50 ml @ 1 mls/hr Q24H IV 11/11/24 23:30 11/18/24 06:00 4 MLS/HR Piperacillin Sod/ Tazobactam Sod 100 ml @ 25 mls/hr Q8HR IV 11/12/24 14:00 11/22/24 05:39 25 MLS/HR Pantoprazole Sodium 40 mg BID IV 11/12/24 10:00 11/21/24 21:53 40 MG Midodrine 10 mg TID@0600,1200,1800 PO 11/13/24 06:00 11/22/24 05:39 10 MG Rifaximin 550 mg BID PO 11/12/24 22:00 11/21/24 21:58 550 MG Polyethylene Glycol 17 gm DAILYPRN PRN PO 11/13/24 12:15 11/18/24 11:50 17 GM Lactulose 30 ml Q4HR PO 11/14/24 14:00 11/22/24 05:39 30 ML Enteral Nutritional Formula 1,000 ml 30ML/HR GT 11/15/24 11:45 11/18/24 02:00 1,000 ML Vasopressin 20 units/Sodium Chloride 100 ml @ 9 mls/hr Q11H7M IV 11/16/24 16:30 Norepinephrine Bitartrate 250 ml @ 1.875 mls/ hr Q24H IV 11/17/24 15:30 11/21/24 07:56 7.5 MLS/HR Fentanyl Citrate 250 ml @ 2.5 mls/hr Q24H IV 11/21/24 09:45 11/21/24 10:45 5 MLS/HR Dexmedetomidine HCl 400 mcg/ Dextrose 100 ml @ 4.17 mls/hr [id number] IV 11/21/24 09:45 11/21/24 10:47 4.17 MLS/HR Examination General examination- patient is on sedation, on mechanical ventilation HEENT- PEERLA, no acute nasal discharge Cardiovascular- S1-S2 audible, rate and rhythm regular, no murmur Respiratory- CTAB, no wheeze or rhonchi Gastrointestinal-nontender, bowel sound+. Abdomen distended ++ Musculoskeletal-no acute joint swelling or tenderness or redness# Lower extremity- no leg edema Neurological- patient on sedation, details could not be done Skin- no acute rash or purpura laboratory and microbiology Laboratory Tests 11/22/24 04:36 Test 11/22/24 04:36 Range/Units Serum Glucose 120 H 74-106 mg/dL Microbiology Date/Time Source Procedure Growth Status 11/13/24 04:35 Nose MRSA Screen - Final Complete 11/12/24 03:52 Voided Urine Urine Culture - Final Complete 11/12/24 03:30 Blood Blood Culture - Final NO GROWTH AFTER 5 DAYS OF INCUBATION. Complete 11/12/24 01:20 Peritoneal Fluid Gram Stain - Final Complete 11/12/24 01:20 Peritoneal Fluid Body Fluid Culture - Final Complete Problem List/Assessment/Plan Problem List/Assessment/Plan Assessment-patient is 29 years old male with a history of cirrhosis of liver due to alcoholism/hypertension came with recurrent hospitalization with history of recurrent paracentesis due to melena and ascites was brought into the hospital due to altered mental status and was to found have hepatic encephalopathy with altered mental status. Patient is intubated to maintain his airway due to altered mental status #Neurological -hepatic encephalopathy due to acute on chronic hepatic failure/septic shock -Patient on mechanical ventilation with sedation -continue current management --respiratory culture --Staphylococcus hemolyticus -blood culture no growth -MRSA screening negative -urine culture-negative #Cardiovascular Septic shock --History of hypertension -on Levophed -avoid dehydration and hepatology or nephrotoxic medications #Respiratory -Suspected Acute hypoxic respiratory failure. -On mechanical ventilation -respiratory culture -Staphylococcus hemolyticus -blood culture -negative -MRSA screening negative -urine culture-no growth ---respiratory culture -Staphylococcus hemolyticus -blood culture no growth -MRSA screening negative -urine culture preliminary no growth #Gastrointestinal -Acute on chronic decompensated liver failure due to alcoholic cirrhosis of liver -Cirrhosis of liver likely due to alcoholism -Malignant ascites -Suspected spontaneous bacterial peritonitis -constipation -Transaminitis likely due to acute on chronic hepatic failure -Splenomegaly -Cholelithiasis -abdominal hernia --respiratory culture- Staphylococcus hemolyticus -blood culture -negative -MRSA screening negative -urine culture-no growth -continue lactulose as prescribed -plan is to have 2-3 bowel movement per day -continue rifaximin 550 mg via OG tube . b.i.d. -continue lactulose 30 mL q.2 h #Genitourinary/Renal -alcoholic cirrhosis of the liver, MELD score 26, estimated 3 month mortality 19.6% -spontaneous bacterial peritonitis -suspected hepatorenal syndrome likely due to acute decompensated hepatic failure -ANDRÉS likely due to VMN -mild hyponatremia likely delusional -FOBT Positive, -status post GI consult Avoid dehydration and hepatic or nephrotoxic medications Midodrine 10 mg via G-tube t.i.d. Continue vasopressin as prescribed #Infectious -suspected spontaneous bacterial peritonitis -septic shock -continue Zosyn and vancomycin as prescribed -by with OG-tube b.i.d. #Hematological -Severe anemia likely due to hepatic failure/hypersplenism -thrombocytopenia likely due to prism/splenic sequestration -monitor CBC, any sign or symptom of bleeding -status post 2 units of packed blood cell blood transfusion #metabolic or endocrine disorder -Lactic acidosis likely due to hepatic failure/septic shock -metabolic acidosis -hyper ammonia -hypocalcemia -hypoalbuminemia #Skin/alimentary -Jaundice likely due to acute on chronic hepatic failure -avoid hepatic or nephrotoxic medication or dehydration Drips-levophed ET tube placed on 10/14/2024 Cartwright's catheter Goals of care/ Code status -DNR ; discussed>15 minutes PUD prophylaxis: SCD DVT prophylaxis: Pantoprazole Plan discussed with Dr. Montano, nursing staff, , father Total critical time spent on patient evaluation, chart review, assessment and plan, total critical time spent including monitoring mechanical ventilation, CPAP trial excluding procedure 81 minutes Plan discussed with: Other (father, RN ) My Orders My Orders Orders - GUSTAVO SANTIZO Procedure Category Date Status Time Chest Portable XY 11/22/24 Resulted 04:00 Abg W/ Co-Ox RT 11/22/24 Logged 05:00 Dietary Evaluation Review Recommendations by RD: Increase Calorie Intake Comments: 1) Increase TF rate to 55 mL/hr goal rate as tolerated. Flush with 50 mL free H2O Q4H Goal rate will provide 1584 kcals, 99g Pro, and 1371 mL free H2O (including flushes) per 24 hrs. Goal rate will meet ~ 97% estimated daily energy needs and ~ 93% estimated daily protein needs 2) Advance to hepatic diet when medically feasible, pending MOTORCYCLE DELIVERY DRIVER aproval 3) Continue to monitor I&O, labs, and skin integrity. Goal TF rate will meet increased protein needs r/t cirrhosis, critical illness, and low Antolin score Expected Outcomes/Goals: 1) EN rate to increase to meet at least 75% of patient's estimated needs 2) diet to advance 3) labs and skin integrity to improve 4) f/u in 2-3 days Interpretation of weight loss: >7.5% in 3 months Fluid Accumulation (Severe): Moderate Fluid Retention Protein Calorie Malnutrition: Severe Is there a minimum of two crit: Yes Date of Service: Nov 22, 2024 Billing Provider: DHEERAJ MONTANO MD Common Visit Codes: 28457-[id number] CARE 30-74 MIN, 46776-[id number] CARE-EACH +30MIN GUSTAVO SANTIZO Nov 22, 2024 08:02 DHEERAJ MONTANO MD Nov 24, 2024 20:07
--- NOTE | 2024-11-22 14:18 | DVH ---
PROCEDURE: ULTRASOUND GUIDED PARACENTESIS HISTORY: 29 Male requiring paracentesis. TECHNIQUE: The risks and benefits of the procedure including but not limited to bleeding, infection and injury t o abdominal organs were explained to the patient and written informed consent was obtained. Optimal site for puncture was determined using ultrasound and the area sterilized and draped. Using a 5 [place] [facility], paracentesis was performed in the left lower abdomen. Approximately 8 li ters of starw colored fluid was removed. The patient tolerated the procedure well. There were no im mediate complications. IMPRESSION: Ultrasound-guided paracentesis with no immediate complications.
[2024-11-22] MEDS: LACTULOSE 20Gm/30ML SOLN PO SCH (17:08)
--- NOTE | 2024-11-22 21:42 | DVHPN2 ---
Progress Note - Dictate Date Seen: Nov 22, 2024 Medical Necessity Reason Pt with a Central, PICC or Fol: Yes The following are medically ne: Central Line, Cartwright Catheter Reason for cartwright catheter: Strict I&O Subjective Patient had a prolonged CPAP trial today Now he is back on the ventilator to give him some rest His ammonia level was up to 65 today vital signs Vital Sign Date Time Temp Pulse Resp B/P (MAP) Pulse Ox O2 Delivery O2 Flow Rate FiO2 11/22/24 20:29 64 18 94/58 (70) 100 30 11/22/24 20:00 98.2 98.2 11/22/24 18:00 Mechanical Ventilator+ 11/20/24 17:20 8.0 Total Intake and Output 11/21/24 11/21/24 11/22/24 15:00 23:00 07:00 Intake Total 342.295 ml 453.765 ml 659.805 ml Output Total 360 ml 250 ml Balance 342.295 ml 93.765 ml 409.805 ml medications Current Medications Medications Dose Ordered Sig/Gretchen Route Start Time Stop Time Status Last Admin Dose Admin Midazolam HCl 50 ml @ 1 mls/hr Q24H IV 11/11/24 23:30 11/18/24 06:00 4 MLS/HR Piperacillin Sod/ Tazobactam Sod 100 ml @ 25 mls/hr Q8HR IV 11/12/24 14:00 11/22/24 17:08 25 MLS/HR Pantoprazole Sodium 40 mg BID IV 11/12/24 10:00 11/22/24 10:51 40 MG Midodrine 10 mg TID@0600,1200,1800 PO 11/13/24 06:00 11/22/24 18:00 10 MG Rifaximin 550 mg BID PO 11/12/24 22:00 11/22/24 10:51 550 MG Polyethylene Glycol 17 gm DAILYPRN PRN PO 11/13/24 12:15 11/18/24 11:50 17 GM Enteral Nutritional Formula 1,000 ml 30ML/HR GT 11/15/24 11:45 11/18/24 02:00 1,000 ML Vasopressin 20 units/Sodium Chloride 100 ml @ 9 mls/hr Q11H7M IV 11/16/24 16:30 Norepinephrine Bitartrate 250 ml @ 1.875 mls/ hr Q24H IV 11/17/24 15:30 11/22/24 17:09 5.625 MLS/HR Fentanyl Citrate 250 ml @ 2.5 mls/hr Q24H IV 11/21/24 09:45 11/21/24 10:45 5 MLS/HR Dexmedetomidine HCl 400 mcg/ Dextrose 100 ml @ 4.17 mls/hr [id number] IV 11/21/24 09:45 11/21/24 10:47 4.17 MLS/HR Lactulose 30 ml Q2HR PO 11/22/24 14:00 11/22/24 20:59 30 ML objective General: Patient is intubated and sedated Chest: lung santos clear to auscultation Heart: RRR, no murmur Abdomen: Imyj-dw-qqfdiedt-distended, +BS laboratory and microbiology Laboratory Tests 11/22/24 04:36 Test 11/22/24 04:36 Range/Units Serum Glucose 120 H 74-106 mg/dL Problems(with codes): (1) Intractable abdominal pain (2) E. coli septicemia (3) Gallstones (4) Splenomegaly (5) Ascites (6) Generalized weakness (7) Hepatic encephalopathy (8) Pancytopenia (9) Elevated liver enzymes Prognosis Plan Increase lactulose to 30 mL every 4 hours Continue to monitor labs CPAP trial again tomorrow Nutritional support MELD score 27 points; 19.6% estimated 3 month mortality Maddrey discrimination function 46 points suggestive of poor prognosis We will start steroids and ursodiol I will follow up Dietary Evaluation Review Recommendations by RD: Increase Calorie Intake Comments: 1) Increase TF rate to 55 mL/hr goal rate as tolerated. Flush with 50 mL free H2O Q4H Goal rate will provide 1584 kcals, 99g Pro, and 1371 mL free H2O (including flushes) per 24 hrs. Goal rate will meet ~ 97% estimated daily energy needs and ~ 93% estimated daily protein needs 2) Advance to hepatic diet when medically feasible, pending FILLER SHREDDER aproval 3) Continue to monitor I&O, labs, and skin integrity. Goal TF rate will meet increased protein needs r/t cirrhosis, critical illness, and low Antolin score Expected Outcomes/Goals: 1) EN rate to increase to meet at least 75% of patient's estimated needs 2) diet to advance 3) labs and skin integrity to improve 4) f/u in 2-3 days Interpretation of weight loss: >7.5% in 3 months Fluid Accumulation (Severe): Moderate Fluid Retention Protein Calorie Malnutrition: Severe Is there a minimum of two crit: Yes Plan discussed with: Other (ANNIE Nurse Aziza) KATELYN JOYCE MD Nov 22, 2024 21:42
[2024-11-23] VITALS (87 sets, daily range): BP systolic 89–138; BP diastolic 45–84; PULSE 60–101; RESP 10–25; TEMP 97.6–98.7; O2SAT 84–100
[2024-11-23 05:09] LABS: Basophils # (auto) 0 10 ^3/uL (0-0.2); Eosinophils # (auto) 0.2 10 ^3/uL (0-0.8); Lymphocytes # (auto) 0.5 10 ^3/uL (0.4-5.4); Lymphocytes % (auto) 12.6 % (10.0-50.0); Mean Corpuscular Hemoglobin 30.1 pg (28.0-32.0); Monocytes # (auto) 0.3 10 ^3/uL (0-1.3)
[2024-11-23 05:12] LABS: Basophils % (auto) 0.4 % (0.0-2.0); Eosinophils % (auto) 5.3 % (0.0-7.0); Hematocrit 25.3 % (41.0-53.0); Hemoglobin 8.3 g/dL (13.5-17.5); Mean Corpuscular Volume 91.2 fL (80.0-100.0); Monocytes % (auto) 6.9 % (0.0-12.0); Neutrophils # (auto) 2.9 10 ^3/uL (1.6-8.6); Neutrophils % (auto) 74.8 % (37.0-80.0); Nucleated Red Blood Cells % 0.1 %; Platelet Count (auto) 44 10^3/uL (140-450); Red Blood Cells 2.77 10^6/uL (4.5-5.90); White Blood Cell 3.9 10^3/uL (4.4-10.8)
[2024-11-23 05:24] LABS: Alanine Aminotransferase 28 U/L (7-40); Alkaline Phosphatase 98 U/L (46-116); Anion Gap 7 (5-15); Carbon Dioxide 20 mmol/L (20-31); Glucose 105 mg/dL (74-106); Magnesium 2.4 mg/dL (1.6-2.6); Sodium 139 mmol/L (136-145)
[2024-11-23 05:51] LABS: BUN/Creatinine Ratio 19.9 (10.0-20.0)
[2024-11-23 06:08] LABS: Albumin 2.3 g/dL (3.2-4.8); Aspartate Aminotransferase 70 U/L (13-40); Blood Urea Nitrogen 31 mg/dL (9-23); Calcium 8.4 mg/dL (8.7-10.4); Chloride 112 mmol/L (98-107); Total Protein 5.3 g/dL (5.7-8.2)
--- NOTE | 2024-11-23 06:23 | DVH ---
EXAM: XR Chest, 1 View CLINICAL INDICATION: PNA TECHNIQUE: Frontal view of the chest. COMPARISON: XY CHEST PORTABLE on DOS: 11/22/24, XY CHEST PORTABLE on DOS: 11/21/24, XY CHEST PORTABLE on DOS: 11/20/24, XY CHEST PORTABLE on DOS: 11/18/24, XY CHEST PORTABLE on DOS: 11/17/24 FINDINGS: LUNGS AND PLEURAL SPACES: Pulmonary venous congestion. No consolidation. No pneumothorax. HEART: Unremarkable. No cardiomegaly. MEDIASTINUM: Unremarkable. Normal mediastinal contour. BONES/JOINTS: Unremarkable. No acute fracture. TUBES, LINES AND DEVICES: Stable tubes and lines. OTHER FINDINGS: . . IMPRESSION: Pulmonary venous congestion.
[2024-11-23 08:49] LABS: Base Excess -5.5 mmol/L (-2.0-3.0)
--- NOTE | 2024-11-23 10:53 | DVHPNRES ---
Progress Note Date Seen: Nov 23, 2024 Resident Creating Document: GUSTAVO SANTIZO Medical Necessity Reason Pt with a Central, PICC or Fol: Yes The following are medically ne: Central Line, Cartwright Catheter Reason for cartwright catheter: Strict I&O Subjective Review of Systems HPI-Patient is 29 years old male with past medical history of cirrhosis of liver due to alcoholism, hypertension, history of recurrent hospitalization, history of recurrent paracentesis due to malignant ascites was admitted to the hospital due to altered mental status. Patient was brought in by the family due to altered mental status for last 5 days which was getting worse lately. Father patient had some vomiting but no blood. Patient's abdominal of the getting bigger as per father. Patient was recently discharged from [facility] on 11/06/2024. On arrival patient was on altered mental status with suspected metabolic encephalopathy. Patient was intubated to maintain his airway. Initial lab workup revealed WBC 4.9, hemoglobin 8.8, platelet 97, sodium 132, potassium 5.2, normal anion gap 7 BUN 37, serum creatinine 1.68, limit lactic acidosis with lactic acid 3.1> 3.9> 4.2, calcium 8.4, magnesium 2.2, serum bilirubin 4.1, AST 98, ALT 48, alkaline phosphatase 165, ammonia 152, albumin 2.3, analysis not significant for UTI, INR 1.59, CXR no acute cardiopulmonary disease. 11/12/2024 Patient had paracentesis of 4.5 L of fluid early in the morning. Central line was placed in the right internal jugular vein.Patient had today on 11/16/2024 and 6.5 L fluid was removed Patient was recently hospitalized intubated on 10/25/2024 and extubated on 11/01/2024. S/p paracentesis on 10/28/24 - 2.1 liters of ascitic fluid were drained. See separate procedure note for details. S/p 5.2 L paracentesis done on 11/05/2024 Ascitic fluid cultures grew Staph epidermidis E coli septicemia On 10/25/2024 blood culture revealed E coli- sensitive to Levaquin On 10/26/2024 body fluid grew Staphylococcus epidermidis-sensitive to Levaquin CT SCAN -on 10/25/2024 revealed cirrhosis of liver, splenomegaly, cholelithiasis. Patient had paracentesis on 10/21/2024, 10/15/2024, 02/01/25, 11/05/24- Patient was seen today for clinical evaluation. Labs and chart reviewed. Patient had a CPAP trial again today, plan is to do a paracentesis today and then tomorrow do a CPAP trial and try to extubate tomorrow AM On Levophed All sedatives were turned off Ordered IR consult for paracentesis Overnight patient's BP ranging from -93 122/54-69, pulse 64-77, temperature 97.6-98.2 I/O- intake 118, output 501, positive balance 217 Lab workup revealed ABG -being 7.36, pCO2 34.6, PO2 84.3, bicarbonate 19.2, Patient with pancytopenia Leukopenia WBC 4.9>> 5.7 >2.8> 02.1> 2.3> 2.0> 2.4> 3.3> 4.6> 4.4> 3.3> 3.9 hemoglobin 8.8> 8.1,> 5.7> 7.3> 7.6> 8.1> 8.2> 8.8> 8.2> 7.4> 7.8> 8.3 thrombocytopenia with platelet 97> 98> 50> 42> 45> 46> 42> 44> 48> 38> 36> 44 Sodium 132 >132> 137> 138> 139>> 139> 140> 140> 141> 1.41> 142> 139 Potassium > 5.2 5.4> 4.8> 4.2> 4.3> 4.2 > 4.1> 4.1> 4.1> 4.2> 3.8> 3.9> 4.0 Serum creatinine 1.68> 1.73> 1.35> 0.81> 0.64> 0.75> 1.25> 1.88> 2.10> 1.61> 1.56 BUN 37> 38> 34> 19> 17> 11> 13> 18> 27> 30> 28> 31 Lactic Acidosis resolved 3.1> 3.9> 4.2?> 3.4> 1.7> 1.8> INR 1.59> 1.70> 1.71> 1.76> 1.78> 1.89> 1.83> 1.88 Ammonia 152> 141>45> 52> 46> 39> 48> 45> 45> 65 transaminitis with serum total bilirubin 4.1> 4.1> 5.5> 8.5> 8.6> 7.6> 7.4> 8.4> 9.1> 9.6> 10.6> 11.0 AST-98>79> 58> 52> 57> 60> 84> 88> 84> 76>70, AST> 43> 38> 28> 62> 29> 23> 28> 29 > 29> 29> 28 Machine Shop Helper spoke to patient's father Morris, , discussed patient's current medical condition, plan of care and answered his question Objective vital signs Vital Sign Date Time Temp Pulse Resp B/P (MAP) Pulse Ox O2 Delivery O2 Flow Rate FiO2 11/23/24 10:28 71 14 127/76 (93) 100 30 11/23/24 10:00 Mechanical Ventilator+ 11/23/24 08:00 97.6 97.6 Total Intake and Output 11/22/24 11/22/24 11/23/24 15:00 23:00 07:00 Intake Total 38.420 ml 262.280 ml 346.275 ml Output Total 251 ml 250 ml Balance 38.420 ml 11.280 ml 96.275 ml medications Current Medications Medications Dose Ordered Sig/Gretchen Route Start Time Stop Time Status Last Admin Dose Admin Midazolam HCl 50 ml @ 1 mls/hr Q24H IV 11/11/24 23:30 11/18/24 06:00 4 MLS/HR Piperacillin Sod/ Tazobactam Sod 100 ml @ 25 mls/hr Q8HR IV 11/12/24 14:00 11/23/24 06:00 25 MLS/HR Pantoprazole Sodium 40 mg BID IV 11/12/24 10:00 11/23/24 08:40 40 MG Midodrine 10 mg TID@0600,1200,1800 PO 11/13/24 06:00 11/23/24 06:00 10 MG Rifaximin 550 mg BID PO 11/12/24 22:00 11/23/24 08:40 550 MG Polyethylene Glycol 17 gm DAILYPRN PRN PO 11/13/24 12:15 11/18/24 11:50 17 GM Enteral Nutritional Formula 1,000 ml 30ML/HR GT 11/15/24 11:45 11/23/24 04:00 1,000 ML Vasopressin 20 units/Sodium Chloride 100 ml @ 9 mls/hr Q11H7M IV 11/16/24 16:30 Norepinephrine Bitartrate 250 ml @ 1.875 mls/ hr Q24H IV 11/17/24 15:30 11/22/24 17:09 5.625 MLS/HR Fentanyl Citrate 250 ml @ 2.5 mls/hr Q24H IV 11/21/24 09:45 11/21/24 10:45 5 MLS/HR Dexmedetomidine HCl 400 mcg/ Dextrose 100 ml @ 4.17 mls/hr [id number] IV 11/21/24 09:45 11/22/24 23:42 6.255 MLS/HR Lactulose 30 ml Q2HR PO 11/22/24 14:00 11/23/24 10:43 30 ML Examination General examination- patient is on sedation, on mechanical ventilation HEENT- PEERLA, no acute nasal discharge Cardiovascular- S1-S2 audible, rate and rhythm regular, no murmur Respiratory- CTAB, no wheeze or rhonchi Gastrointestinal-nontender, bowel sound+. Abdomen distended ++ Musculoskeletal-no acute joint swelling or tenderness or redness# Lower extremity- no leg edema Neurological- patient on sedation, details could not be done Skin- no acute rash or purpura laboratory and microbiology Laboratory Tests 11/23/24 04:38 Test 11/23/24 04:38 Range/Units Serum Glucose 105 74-106 mg/dL Microbiology Date/Time Source Procedure Growth Status 11/13/24 04:35 Nose MRSA Screen - Final Complete 11/12/24 03:52 Voided Urine Urine Culture - Final Complete 11/12/24 03:30 Blood Blood Culture - Final NO GROWTH AFTER 5 DAYS OF INCUBATION. Complete 11/12/24 01:20 Peritoneal Fluid Gram Stain - Final Complete 11/12/24 01:20 Peritoneal Fluid Body Fluid Culture - Final Complete Problem List/Assessment/Plan Problem List/Assessment/Plan Assessment- Patient had a CPAP trial again today, plan is to do a paracentesis today and then tomorrow do a CPAP trial and try to extubate tomorrow AM On Levophed All sedatives were turned off Order IR consult for paracentesis #Neurological -hepatic encephalopathy due to acute on chronic hepatic failure/septic shock -Patient on mechanical ventilation -continue current management --respiratory culture - Staphylococcus hemolyticus -blood culture no growth -MRSA screening negative -urine culture-negative #Cardiovascular Septic shock --History of hypertension -on Levophed -avoid dehydration and hepatology or nephrotoxic medications #Respiratory -Suspected Acute hypoxic respiratory failure. -On mechanical ventilation -blood culture -negative -MRSA screening negative -urine culture-no growth ---respiratory culture -Staphylococcus hemolyticus -blood culture no growth -MRSA screening negative -urine culture preliminary no growth #Gastrointestinal -Acute on chronic decompensated liver failure due to alcoholic cirrhosis of liver -Cirrhosis of liver likely due to alcoholism -Malignant ascites -Suspected spontaneous bacterial peritonitis -constipation -Transaminitis likely due to acute on chronic hepatic failure -Splenomegaly -Cholelithiasis -abdominal hernia --respiratory culture -Staphylococcus hemolyticus -blood culture -negative -MRSA screening negative -urine culture-no growth -continue lactulose as prescribed -plan is to have 2-3 bowel movement per day -continue rifaximin 550 mg via OG tube . b.i.d. -continue lactulose 30 mL q.2 h #Genitourinary/Renal -alcoholic cirrhosis of the liver, MELD score 26, estimated 3 month mortality 19.6% -spontaneous bacterial peritonitis -suspected hepatorenal syndrome likely due to acute decompensated hepatic failure -ANDRÉS likely due to VMN -mild hyponatremia likely delusional -FOBT Positive, -status post GI consult Avoid dehydration and hepatic or nephrotoxic medications Midodrine 10 mg via G-tube t.i.d. Continue vasopressin as prescribed #Infectious -suspected spontaneous bacterial peritonitis -septic shock -continue Zosyn and vancomycin as prescribed -by with OG-tube b.i.d. #Hematological -Severe anemia likely due to hepatic failure/hypersplenism -thrombocytopenia likely due to prism/splenic sequestration -monitor CBC, any sign or symptom of bleeding -status post 2 units of packed blood cell blood transfusion #metabolic or endocrine disorder -Lactic acidosis likely due to hepatic failure/septic shock -metabolic acidosis -hyper ammonia -hypocalcemia -hypoalbuminemia #Skin/alimentary -Jaundice likely due to acute on chronic hepatic failure -avoid hepatic or nephrotoxic medication or dehydration Drips-levophed, Fentabyl ET tube placed on 10/14/2024 Goals of care/advance care planning Code status -DNR ; discussed>15 minutes PUD prophylaxis: SCD DVT prophylaxis: Pantoprazole Plan discussed with Dr. Abernathy, nursing staff, , father Total critical time spent on patient evaluation, chart review, assessment and plan, total critical time spent including monitoring mechanical ventilation, CPAP trial excluding procedure 81 minutes Plan discussed with: Other (father, RN ) My Orders My Orders Orders - GUSTAVO SANTIZO RESIDENT Procedure Category Date Status Time Paracentesis US 11/22/24 Resulted 11:34 Abg W/ Co-Ox RT 11/23/24 Logged 05:00 Chest Portable XY 11/23/24 Resulted 04:00 Cpap Trial For Am ORDERS 11/23/24 Transmitted 10:30 Dietary Evaluation Review Recommendations by RD: Increase Calorie Intake Comments: 1) Increase TF rate to 55 mL/hr goal rate as tolerated. Flush with 50 mL free H2O Q4H Goal rate will provide 1584 kcals, 99g Pro, and 1371 mL free H2O (including flushes) per 24 hrs. Goal rate will meet ~ 97% estimated daily energy needs and ~ 93% estimated daily protein needs 2) Advance to hepatic diet when medically feasible, pending COMMUTATOR OPERATOR aproval 3) Continue to monitor I&O, labs, and skin integrity. Goal TF rate will meet increased protein needs r/t cirrhosis, critical illness, and low Antolin score Expected Outcomes/Goals: 1) EN rate to increase to meet at least 75% of patient's estimated needs 2) diet to advance 3) labs and skin integrity to improve 4) f/u in 2-3 days Interpretation of weight loss: >7.5% in 3 months Fluid Accumulation (Severe): Moderate Fluid Retention Protein Calorie Malnutrition: Severe Is there a minimum of two crit: Yes GUSTAVO SANTIZO RESIDENT Nov 23, 2024 10:53
--- NOTE | 2024-11-23 15:27 | DVHPN2 ---
Progress Note - Dictate Date Seen: Nov 23, 2024 Medical Necessity Reason Pt with a Central, PICC or Fol: Yes The following are medically ne: Central Line, Cartwright Catheter Reason for cartwright catheter: Strict I&O Subjective Patient had a prolonged CPAP trial today for 4 hours Now he is back on the ventilator to give him some rest G-tube feedings are being resumed as gastric residuals have improved Yesterday he had paracentesis with removal of 8.6 L of fluid One small bowel movement today on lactulose vital signs Vital Sign Date Time Temp Pulse Resp B/P (MAP) Pulse Ox O2 Delivery O2 Flow Rate FiO2 11/23/24 14:00 30 11/23/24 14:00 78 14 108/58 (75) 100 11/23/24 14:00 Mechanical Ventilator+ 11/23/24 12:00 98.7 98.7 Total Intake and Output 11/22/24 11/22/24 11/23/24 15:00 23:00 07:00 Intake Total 38.420 ml 262.280 ml 346.275 ml Output Total 251 ml 250 ml Balance 38.420 ml 11.280 ml 96.275 ml medications Current Medications Medications Dose Ordered Sig/Gretchen Route Start Time Stop Time Status Last Admin Dose Admin Midazolam HCl 50 ml @ 1 mls/hr Q24H IV 11/11/24 23:30 11/18/24 06:00 4 MLS/HR Piperacillin Sod/ Tazobactam Sod 100 ml @ 25 mls/hr Q8HR IV 11/12/24 14:00 11/23/24 13:10 25 MLS/HR Pantoprazole Sodium 40 mg BID IV 11/12/24 10:00 11/23/24 08:40 40 MG Midodrine 10 mg TID@0600,1200,1800 PO 11/13/24 06:00 11/23/24 13:10 10 MG Rifaximin 550 mg BID PO 11/12/24 22:00 11/23/24 08:40 550 MG Polyethylene Glycol 17 gm DAILYPRN PRN PO 11/13/24 12:15 11/18/24 11:50 17 GM Enteral Nutritional Formula 1,000 ml 30ML/HR GT 11/15/24 11:45 11/23/24 04:00 1,000 ML Vasopressin 20 units/Sodium Chloride 100 ml @ 9 mls/hr Q11H7M IV 11/16/24 16:30 Norepinephrine Bitartrate 250 ml @ 1.875 mls/ hr Q24H IV 11/17/24 15:30 11/22/24 17:09 5.625 MLS/HR Fentanyl Citrate 250 ml @ 2.5 mls/hr Q24H IV 11/21/24 09:45 11/21/24 10:45 5 MLS/HR Dexmedetomidine HCl 400 mcg/ Dextrose 100 ml @ 4.17 mls/hr [id number] IV 11/21/24 09:45 11/22/24 23:42 6.255 MLS/HR Lactulose 30 ml Q2HR PO 11/22/24 14:00 11/23/24 13:10 30 ML objective General: Patient is intubated and sedated Chest: lung santos clear to auscultation Heart: RRR, no murmur Abdomen: Bpsf-qb-bzevcpkj-distended, +BS laboratory and microbiology Laboratory Tests 11/23/24 04:38 Test 11/23/24 04:38 Range/Units Serum Glucose 105 74-106 mg/dL Problems(with codes): (1) Cirrhosis (2) Acute abdominal pain (3) Anemia, unspecified (4) Ascites due to alcoholic cirrhosis (5) Thrombocytopenia (6) Elevated liver enzymes (7) Intractable abdominal pain (8) Splenomegaly (9) Ascites Prognosis Plan Advance tube feedings as tolerated Continue lactulose 30 mL q.6 hours Monitor labs MELD score 27 points; 19.6% estimated 3 month mortality Maddrey discrimination function 46 points suggestive of poor prognosis We will start steroids and ursodiol Dietary Evaluation Review Recommendations by RD: Increase Calorie Intake Comments: 1) Increase TF rate to 55 mL/hr goal rate as tolerated. Flush with 50 mL free H2O Q4H Goal rate will provide 1584 kcals, 99g Pro, and 1371 mL free H2O (including flushes) per 24 hrs. Goal rate will meet ~ 97% estimated daily energy needs and ~ 93% estimated daily protein needs 2) Advance to hepatic diet when medically feasible, pending INSTALLATION HELPER aproval 3) Continue to monitor I&O, labs, and skin integrity. Goal TF rate will meet increased protein needs r/t cirrhosis, critical illness, and low Antolin score Expected Outcomes/Goals: 1) EN rate to increase to meet at least 75% of patient's estimated needs 2) diet to advance 3) labs and skin integrity to improve 4) f/u in 2-3 days Interpretation of weight loss: >7.5% in 3 months Fluid Accumulation (Severe): Moderate Fluid Retention Protein Calorie Malnutrition: Severe Is there a minimum of two crit: Yes Plan discussed with: Other (ANNIE Nurse) KATELYN JOYCE MD Nov 23, 2024 15:27
[2024-11-23] MEDS: THIAMINE 100mg/ml INJ (200mg/2ml VIAL) IM ONE (15:52)
[2024-11-23] MEDS: phytonadione 10 MG in SODIUM CHL 0.9% 50 ML IV ONE (15:55)
--- NOTE | 2024-11-23 16:12 | DVH ---
ULTRASOUND ABDOMEN limited, 4 QUADRANTS INDICATION: FLUID CHECK FOR POSSIBLE PARACENTESIS Evaluate for ascites. TECHNIQUE: The four quadrants of the abdomen were scanned in benites-scale to assess for the presence of ascites. N o solid organ assessment was performed. FINDINGS: small to moderate ascites IMPRESSIONS: 1. small to moderate ascites
[2024-11-23] MEDS: FOLIC ACID 1 MG TAB NG ONE (18:03)
[2024-11-23] MEDS: methylPREDNISolone SOD SUCC 40 MG/ML VL IV SCH (22:02)
[2024-11-23] MEDS: URSODIOL 300 MG CAP PO SCH (22:03)
[2024-11-24] VITALS (95 sets, daily range): BP systolic 84–158; BP diastolic 36–98; PULSE 48–95; RESP 8–25; TEMP 95.4–98.3; O2SAT 88–100
--- NOTE | 2024-11-24 04:14 | DVH ---
CHEST RADIOGRAPH Indication: PNA Technique: Single frontal view of the chest was obtained COMPARISON: XY CHEST PORTABLE on DOS: 11/23/24, XY CHEST PORTABLE on DOS: 11/22/24, XY CHEST PORTABLE o n DOS: 11/21/24, XY CHEST PORTABLE on DOS: 11/20/24, XY CHEST PORTABLE on DOS: 11/18/24 FINDINGS: Lines and Tubes: Unchanged. Lungs: Diminished lung volumes. No evidence of focal consolidation. Pleura: No effusion. No pneumothorax. Cardiomediastinal contours: Unremarkable Bones: Unremarkable IMPRESSION: 1. No acute disease. 2. Lines and tubes unchanged.
[2024-11-24 06:05] LABS: Basophils # (auto) 0 10 ^3/uL (0-0.2); Basophils % (auto) 0.1 % (0.0-2.0); Eosinophils # (auto) 0 10 ^3/uL (0-0.8); Eosinophils % (auto) 0.1 % (0.0-7.0); Hemoglobin 8.8 g/dL (13.5-17.5); Lymphocytes # (auto) 0.3 10 ^3/uL (0.4-5.4); Lymphocytes % (auto) 7.4 % (10.0-50.0); Monocytes # (auto) 0.1 10 ^3/uL (0-1.3); Platelet Count (auto) 46 10^3/uL (140-450)
[2024-11-24 06:09] LABS: Hematocrit 26.5 % (41.0-53.0); Mean Corpuscular Hemoglobin 30.2 pg (28.0-32.0); Mean Corpuscular Hgb Conc. 33.2 g/dL (32.0-36.0); Mean Corpuscular Volume 91.1 fL (80.0-100.0); Monocytes % (auto) 1.5 % (0.0-12.0); Neutrophils # (auto) 3.1 10 ^3/uL (1.6-8.6); Neutrophils % (auto) 90.9 % (37.0-80.0); Red Blood Cells 2.91 10^6/uL (4.5-5.90); Red Cell Distribution Width 22.7 % (11.8-14.3); White Blood Cell 3.4 10^3/uL (4.4-10.8)
[2024-11-24 06:19] LABS: INR 1.82 (0.9-1.15); Prothrombin Time 18.2 sec (9.3-11.8)
[2024-11-24 06:25] LABS: Alanine Aminotransferase 32 U/L (7-40); Alkaline Phosphatase 113 U/L (46-116); Anion Gap 9 (5-15); BUN/Creatinine Ratio 17.8 (10.0-20.0); Carbon Dioxide 20 mmol/L (20-31); Potassium 4.2 mmol/L (3.5-5.1); Sodium 141 mmol/L (136-145)
[2024-11-24 06:55] LABS: Albumin 2.4 g/dL (3.2-4.8); Aspartate Aminotransferase 83 U/L (13-40); Bilirubin, Total 12.4 mg/dL (0.2-1.0); Blood Urea Nitrogen 34 mg/dL (9-23); Calcium 8.6 mg/dL (8.7-10.4); Chloride 112 mmol/L (98-107); Glucose 163 mg/dL (74-106); Total Protein 5.6 g/dL (5.7-8.2)
[2024-11-24 08:00] LABS: Anisocytosis Slight; Ovalocytes FEW; Platelet Estimate Decreased
[2024-11-24 08:38] LABS: Base Excess -5.9 mmol/L (-2.0-3.0)
[2024-11-24] MEDS: FOLIC ACID 1 MG TAB NG SCH (10:35)
[2024-11-24] MEDS: THIAMINE 100mg/ml INJ (200mg/2ml VIAL) IV SCH (10:36)
--- NOTE | 2024-11-24 17:07 | DVHPN2 ---
Subjective Intubated and sedated Reviewed: Care Plan, H&P, Labs, Medications, Previous Orders, Radiology, Other (Consultants) Changes from previous H/P or p: No Changes Objective Vitals Vital Signs Date Time Temp Pulse Resp B/P (MAP) Pulse Ox O2 Delivery O2 Flow Rate FiO2 11/24/24 16:03 58 12 129/72 (91) 99 30 11/24/24 15:53 Mechanical Ventilator+ 11/24/24 15:15 98.0 98.0 Intake/Output Intake and Output 11/24/24 07:00 Intake Total 730.385 ml Output Total 450 ml Balance 280.385 ml IV Total 384.385 ml Tube Feeding 226 ml Other 120 ml Output Urine Total 450 ml # Bowel Movements 2 General Appearance: Other (Intubated and sedated) HEENT: Other (Icteric sclera) Lungs: Other (Few crackles bilateral lungs) Abdomen: Other (Prominent abdomen with ascites) Extremities: Other (Presence of edema bilateral lower extremity) Medications Current Medications Medications Dose Ordered Sig/Gretchen Route Start Time Stop Time Status Last Admin Dose Admin Midazolam HCl 50 ml @ 1 mls/hr Q24H IV 11/11/24 23:30 11/18/24 06:00 4 MLS/HR Pantoprazole Sodium 40 mg BID IV 11/12/24 10:00 11/24/24 10:36 40 MG Midodrine 10 mg TID@0600,1200,1800 PO 11/13/24 06:00 11/24/24 13:41 10 MG Polyethylene Glycol 17 gm DAILYPRN PRN PO 11/13/24 12:15 11/18/24 11:50 17 GM Enteral Nutritional Formula 1,000 ml 30ML/HR GT 11/15/24 11:45 11/24/24 03:05 1,000 ML Vasopressin 20 units/Sodium Chloride 100 ml @ 9 mls/hr Q11H7M IV 11/16/24 16:30 Norepinephrine Bitartrate 250 ml @ 1.875 mls/ hr Q24H IV 11/17/24 15:30 11/23/24 15:55 3.75 MLS/HR Fentanyl Citrate 250 ml @ 2.5 mls/hr Q24H IV 11/21/24 09:45 11/21/24 10:45 5 MLS/HR Dexmedetomidine HCl 400 mcg/ Dextrose 100 ml @ 4.17 mls/hr [id number] IV 11/21/24 09:45 11/24/24 02:47 6.255 MLS/HR Lactulose 30 ml Q2HR PO 11/22/24 14:00 11/23/24 12:00 30 ML Ursodiol 300 mg BID PO 11/23/24 22:00 11/24/24 10:00 300 MG Methylprednisolone Sodium Succinate 20 mg BID IV 11/23/24 22:00 11/24/24 10:36 20 MG Thiamine HCl 100 mg DAILY IV 11/24/24 10:00 11/24/24 10:36 100 MG Folic Acid 1 mg DAILY NG 11/24/24 10:00 11/24/24 10:35 1 MG Laboratory Results Laboratory Tests 11/24/24 05:32 Chemistry Test 11/24/24 05:32 Albumin 2.4 g/dL (3.2-4.8) L Calcium Level 8.6 mg/dL (8.7-10.4) L Total Protein 5.6 g/dL (5.7-8.2) L Coagulation Test 11/24/24 05:32 Prothrombin Time 18.2 sec (9.3-11.8) H Prothrombin Time INR 1.82 (0.9-1.15) H LFT Test 11/24/24 05:32 Alanine Aminotransferase (ALT) 32 U/L (7-40) Alkaline Phosphatase 113 U/L (46-116) Aspartate Amino Transferase (AST) 83 U/L (13-40) H Total Bilirubin 12.4 mg/dL (0.2-1.0) H Urinalysis Test 11/12/24 03:52 Urine Color Dark-yellow (Yellow) Urine Clarity Turbid (Clear) H Urine pH 5.5 (5.0-9.0) Urine Specific [place] 1.025 (1.001-1.035) Urine Protein Trace (Negative) H Urine Ketones Trace (Negative) Urine Blood Negative /uL (Negative) Urine Nitrite Negative (Negative) Urine Bilirubin 1+ (Negative) Urine Urobilinogen 2 mg/dL (Negative) H Urine Leukocyte Esterase Negative /uL (Negative) Urine RBC 7 /hpf (0 - 3) Urine Microscopic WBC 7 /HPF (0-3) H Urine Squamous Epithelial Cells Few /hpf (<5) Urine Bacteria None seen /hpf (None Seen) Urine Hyaline Casts Many /lpf (0 - 2) Urine Mucus Few (None Seen) Urine Glucose Normal mg/dL (Normal) Blood Gas Results Test 11/24/24 07:45 Arterial Blood pH 7.381 (7.350-7.450) FiO2 % 30.0 Microbiology Microbiology Date/Time Source Procedure Growth Status 11/13/24 04:35 Nose MRSA Screen - Final Complete 11/12/24 03:52 Voided Urine Urine Culture - Final Complete 11/12/24 03:30 Blood Blood Culture - Final NO GROWTH AFTER 5 DAYS OF INCUBATION. Complete 11/12/24 01:20 Peritoneal Fluid Gram Stain - Final Complete 11/12/24 01:20 Peritoneal Fluid Body Fluid Culture - Final Complete Assessment/Plan Assessment/Plan Acute respiratory failure/ventilator Sepsis and septic shock on Levophed Hepatic encephalopathy and alcoholic liver cirrhosis Ascites Possible spontaneous bacterial peritonitis Hypertension Severe anemia Plan: Continue current plan of care. Patient is DNR. Prognosis is poor. Planning for more paracentesis and CPAP trials. CBC. CMP. Ammonia level. Chest x-ray. ABGs. Possible extubation next 24 or 48 hours if stable. Total critical care time 35 minutes Plan discussed with: Other (Nursing) My Orders Orders - JO ELDER MD Procedure Category Date Status Time Cpap/Sed Vacation Med ORDERS 11/24/24 Transmitted Weaning 10:40 Date of Service: Nov 24, 2024 Billing Provider: JO ELDER MD Common Visit Codes: [id number] CARE 30-74 MIN JO ELDER MD Nov 24, 2024 17:07
--- NOTE | 2024-11-24 22:05 | DVHPN2 ---
Progress Note - Dictate Date Seen: Nov 24, 2024 Medical Necessity Reason Pt with a Central, PICC or Fol: Yes The following are medically ne: Central Line, Cartwright Catheter Reason for cartwright catheter: Strict I&O Subjective Patient was more awake and alert when seen in the morning Patient had a prolonged CPAP trial G-tube feedings were on hold for CPAP trial 2 small bowel movement today on lactulose vital signs Vital Sign Date Time Temp Pulse Resp B/P (MAP) Pulse Ox O2 Delivery O2 Flow Rate FiO2 11/24/24 20:22 81 25 105/63 (77) 99 30 11/24/24 20:00 98.3 98.3 11/24/24 18:02 Mechanical Ventilator+ Total Intake and Output 11/23/24 11/23/24 11/24/24 15:00 23:00 07:00 Intake Total 162.920 ml 239.765 ml 327.700 ml Output Total 300 ml 150 ml Balance 162.920 ml -60.235 ml 177.700 ml medications Current Medications Medications Dose Ordered Sig/Gretchen Route Start Time Stop Time Status Last Admin Dose Admin Midazolam HCl 50 ml @ 1 mls/hr Q24H IV 11/11/24 23:30 11/18/24 06:00 4 MLS/HR Pantoprazole Sodium 40 mg BID IV 11/12/24 10:00 11/24/24 10:36 40 MG Midodrine 10 mg TID@0600,1200,1800 PO 11/13/24 06:00 11/24/24 17:12 10 MG Polyethylene Glycol 17 gm DAILYPRN PRN PO 11/13/24 12:15 11/18/24 11:50 17 GM Enteral Nutritional Formula 1,000 ml 30ML/HR GT 11/15/24 11:45 11/24/24 03:05 1,000 ML Vasopressin 20 units/Sodium Chloride 100 ml @ 9 mls/hr Q11H7M IV 11/16/24 16:30 Norepinephrine Bitartrate 250 ml @ 1.875 mls/ hr Q24H IV 11/17/24 15:30 11/23/24 15:55 3.75 MLS/HR Fentanyl Citrate 250 ml @ 2.5 mls/hr Q24H IV 11/21/24 09:45 11/21/24 10:45 5 MLS/HR Dexmedetomidine HCl 400 mcg/ Dextrose 100 ml @ 4.17 mls/hr [id number] IV 11/21/24 09:45 11/24/24 02:47 6.255 MLS/HR Lactulose 30 ml Q2HR PO 11/22/24 14:00 11/24/24 18:37 30 ML Ursodiol 300 mg BID PO 11/23/24 22:00 11/24/24 10:00 300 MG Methylprednisolone Sodium Succinate 20 mg BID IV 11/23/24 22:00 11/24/24 10:36 20 MG Thiamine HCl 100 mg DAILY IV 11/24/24 10:00 11/24/24 10:36 100 MG Folic Acid 1 mg DAILY NG 11/24/24 10:00 11/24/24 10:35 1 MG objective General: Patient is intubated and off sedation Chest: lung santos clear to auscultation Heart: RRR, no murmur Abdomen: Aksu-qe-joyavxru-distended, +BS;umbilical hernia Ext no c/c/e laboratory and microbiology Laboratory Tests 11/24/24 05:32 Test 11/24/24 05:32 Range/Units Serum Glucose 163 H 74-106 mg/dL Problems(with codes): (1) Anemia, unspecified (2) Thrombocytopenia (3) Cirrhosis (4) Pancytopenia (5) Elevated liver enzymes (6) Ascites due to alcoholic cirrhosis (7) E. coli septicemia Prognosis Plan Continue IV Solu-Medrol Continue ursodiol Continue to monitor labs Correct coagulopathy Possible paracentesis on 11/16 followed by attempt at extubation Dietary Evaluation Review Recommendations by RD: Increase Calorie Intake Comments: 1) Increase TF rate to 55 mL/hr goal rate as tolerated. Flush with 50 mL free H2O Q4H Goal rate will provide 1584 kcals, 99g Pro, and 1371 mL free H2O (including flushes) per 24 hrs. Goal rate will meet ~ 97% estimated daily energy needs and ~ 93% estimated daily protein needs 2) Advance to hepatic diet when medically feasible, pending BRAZING MACHINE TENDER aproval 3) Continue to monitor I&O, labs, and skin integrity. Goal TF rate will meet increased protein needs r/t cirrhosis, critical illness, and low Antolin score Expected Outcomes/Goals: 1) EN rate to increase to meet at least 75% of patient's estimated needs 2) diet to advance 3) labs and skin integrity to improve 4) f/u in 2-3 days Interpretation of weight loss: >7.5% in 3 months Fluid Accumulation (Severe): Moderate Fluid Retention Protein Calorie Malnutrition: Severe Is there a minimum of two crit: Yes Plan discussed with: Patient, Other (ANNIE Nurse) KATELYN JOYCE MD Nov 24, 2024 22:05
--- NOTE | 2024-11-24 23:07 | DVHPN2 ---
Progress Note - Dictate Date Seen: Nov 24, 2024 Medical Necessity Reason Pt with a Central, PICC or Fol: Yes The following are medically ne: Central Line, Cartwright Catheter Reason for cartwright catheter: Strict I&O Subjective Patient seen and examined at bedside. Intubated on mechanical ventilator. Overnight events reviewed. vital signs Vital Sign Date Time Temp Pulse Resp B/P (MAP) Pulse Ox O2 Delivery O2 Flow Rate FiO2 11/24/24 22:30 60 18 94/53 (67) 100 11/24/24 22:15 30 11/24/24 22:00 Mechanical Ventilator+ 11/24/24 20:00 98.3 98.3 Total Intake and Output 11/23/24 11/23/24 11/24/24 15:00 23:00 07:00 Intake Total 162.920 ml 239.765 ml 327.700 ml Output Total 300 ml 150 ml Balance 162.920 ml -60.235 ml 177.700 ml medications Current Medications Medications Dose Ordered Sig/Gretchen Route Start Time Stop Time Status Last Admin Dose Admin Midazolam HCl 50 ml @ 1 mls/hr Q24H IV 11/11/24 23:30 11/18/24 06:00 4 MLS/HR Pantoprazole Sodium 40 mg BID IV 11/12/24 10:00 11/24/24 22:58 40 MG Midodrine 10 mg TID@0600,1200,1800 PO 11/13/24 06:00 11/24/24 17:12 10 MG Polyethylene Glycol 17 gm DAILYPRN PRN PO 11/13/24 12:15 11/18/24 11:50 17 GM Enteral Nutritional Formula 1,000 ml 30ML/HR GT 11/15/24 11:45 11/24/24 03:05 1,000 ML Vasopressin 20 units/Sodium Chloride 100 ml @ 9 mls/hr Q11H7M IV 11/16/24 16:30 Norepinephrine Bitartrate 250 ml @ 1.875 mls/ hr Q24H IV 11/17/24 15:30 11/23/24 15:55 3.75 MLS/HR Fentanyl Citrate 250 ml @ 2.5 mls/hr Q24H IV 11/21/24 09:45 11/21/24 10:45 5 MLS/HR Dexmedetomidine HCl 400 mcg/ Dextrose 100 ml @ 4.17 mls/hr [id number] IV 11/21/24 09:45 11/24/24 02:47 6.255 MLS/HR Lactulose 30 ml Q2HR PO 11/22/24 14:00 11/24/24 22:58 30 ML Ursodiol 300 mg BID PO 11/23/24 22:00 11/24/24 22:59 300 MG Methylprednisolone Sodium Succinate 20 mg BID IV 11/23/24 22:00 11/24/24 22:59 20 MG Thiamine HCl 100 mg DAILY IV 11/24/24 10:00 11/24/24 10:36 100 MG Folic Acid 1 mg DAILY NG 11/24/24 10:00 11/24/24 10:35 1 MG objective Gen.: Patient lying in bed in medical ICU. Intubated on mechanical ventilator. Head: Normocephalic, atraumatic. Eyes: PERRLA. Ears: Normal external anatomy. Throat: Endotracheal tube and orogastric tube in place. Neck: Supple, trachea midline. Chest: Transmitted breath sounds bilaterally. Decreased air entry bilaterally. No wheezing. Bibasilar crackles. Cardiovascular: Positive S1, positive S2. Regular rate and rhythm. Abdomen: Positive bowel sounds in all 4 quadrants. Soft, nontender, nondistended. : Cartwright in place. Normal external genitalia. Rectal: Deferred. Skin: Warm, dry. Intact. Extremities: 2+ radial pulses bilaterally. No lower extremity edema. Neuro: Off sedation laboratory and microbiology Laboratory Tests 11/24/24 05:32 Test 11/24/24 05:32 Range/Units Serum Glucose 163 H 74-106 mg/dL Assessment/Plan Impression: Acute hypoxic respiratory failure Metabolic acidosis On mechanical ventilator Septic shock Cirrhosis Ascites Atelectasis Parkinson's Disease Pulmonary edema Events: CPAP with PS 10, PEEP of 5, FiO2 30% Off sedation On Precedex drip Vent support On AC mode; RR 18, VT 450, PEEP 5, FiO2 30% ABG reviewed, compensated CXR demonstrates diminished lung volumes. No evidence of focal consolidation. Devices in place. On pressors for hemodynamic support Levophed 2 mcg/min Titrate to keep mean arterial pressure greater than 65 mmHg. Continue IV steroids Midodrine Monitor blood pressure Labs and imaging reviewed. Rest of plan as noted below. Plan: s/p intubation on mechanical ventilator. On AC mode; RR 18, VT 450, PEEP 5, FiO2 30% Titrate FIO2 to keep O2 saturation above 90%. VAP bundle. Daily ABG and CXR while intubated Off sedation Continue antibiotics. F/u cultures. On pressors for hemodynamic support Titrate to keep mean arterial pressure greater than 65 mmHg. S/p paracentesis by IR on 11/16/24. Tube feeds for nutritional support Monitor renal function Monitor electrolytes. Supplement as necessary. Monitor ins and outs. Maintain euvolemia. GI prophylaxis. DVT prophylaxis. Prognosis: Poor given patient's multiple co-morbidities. Condition: Critical Rest of plan per hospitalist and other consultants. A total of 35 minutes of critical care time was spent reviewing the patient record, examining the patient, making a diagnostic and therapeutic plan, discussing this plan with the medical personnel, following up on diagnostic studies and following the patient for clinical stability excluding any and all procedures. At least 50% of this time was spent in direct, [id number] contact. Thank you, Dr. Jansen, for allowing me to participate in this patient's care. Further recommendations will depend on the patient's clinical course. Please do not hesitate to contact me if you have any questions or concerns. This medical document was created using an electronic medical record system with [employer] computerized dictation system. Although these documentations are being carefully reviewed, there may still be some phonetic and typographical changes. The errors are purely typographical, due to imperfection on the software program, and do not reflect any compromise in the patient's medical care. Dietary Evaluation Review Recommendations by RD: Increase Calorie Intake Comments: 1) Increase TF rate to 55 mL/hr goal rate as tolerated. Flush with 50 mL free H2O Q4H Goal rate will provide 1584 kcals, 99g Pro, and 1371 mL free H2O (including flushes) per 24 hrs. Goal rate will meet ~ 97% estimated daily energy needs and ~ 93% estimated daily protein needs 2) Advance to hepatic diet when medically feasible, pending [employer]IM[employer] W[employer]EN aproval 3) Continue to monitor I&O, labs, and skin integrity. Goal TF rate will meet increased protein needs r/t cirrhosis, critical illness, and low Antolin score Expected Outcomes/Goals: 1) EN rate to increase to meet at least 75% of patient's estimated needs 2) diet to advance 3) labs and skin integrity to improve 4) f/u in 2-3 days Interpretation of weight loss: >7.5% in 3 months Fluid Accumulation (Severe): Moderate Fluid Retention Protein Calorie Malnutrition: Severe Is there a minimum of two crit: Yes Plan discussed with: Other (BRENT Reese) Critical Care Time(min): 35 EILEEN LORENZO MD Nov 24, 2024 23:07
[2024-11-25] VITALS (105 sets, daily range): BP systolic 83–123; BP diastolic 42–77; PULSE 51–84; RESP 9–26; TEMP 95.4–98.8; O2SAT 96–100
--- NOTE | 2024-11-25 02:18 | DVH ---
CHEST RADIOGRAPH Indication: fu Technique: Single frontal view of the chest was obtained COMPARISON: XY CHEST PORTABLE on DOS: 11/24/24, XY CHEST PORTABLE on DOS: 11/23/24, XY CHEST PORTABLE o n DOS: 11/22/24, XY CHEST PORTABLE on DOS: 11/21/24, XY CHEST PORTABLE on DOS: 11/20/24 FINDINGS: Lines and Tubes: Unchanged Lungs: Clear with diminished lung volumes. Pleura: No effusion. No pneumothorax. Cardiomediastinal contours: Unremarkable Bones: Unremarkable IMPRESSION: 1. No acute disease. 2. Lines and tubes unchanged
[2024-11-25 05:59] LABS: Alanine Aminotransferase 36 U/L (7-40); Anion Gap 9 (5-15); Potassium 4.2 mmol/L (3.5-5.1); Sodium 138 mmol/L (136-145)
[2024-11-25 06:42] LABS: Albumin 2.4 g/dL (3.2-4.8); Alkaline Phosphatase 125 U/L (46-116); Aspartate Aminotransferase 74 U/L (13-40); Bilirubin, Total 13.1 mg/dL (0.2-1.0); Blood Urea Nitrogen 45 mg/dL (9-23); Calcium 8.6 mg/dL (8.7-10.4); Carbon Dioxide 19 mmol/L (20-31); Chloride 110 mmol/L (98-107); Glucose 164 mg/dL (74-106)
[2024-11-25 07:00] LABS: BUN/Creatinine Ratio 20.5 (10.0-20.0)
[2024-11-25 07:01] LABS: Total Protein 5.8 g/dL (5.7-8.2)
[2024-11-25 07:44] LABS: Base Excess -6.6 mmol/L (-2.0-3.0)
[2024-11-25 07:57] LABS: Basophils # (auto) 0 10 ^3/uL (0-0.2); Eosinophils # (auto) 0 10 ^3/uL (0-0.8); Hematocrit 27.6 % (41.0-53.0); Hemoglobin 9.3 g/dL (13.5-17.5); Lymphocytes # (auto) 0.7 10 ^3/uL (0.4-5.4); Lymphocytes % (auto) 6.7 % (10.0-50.0); Mean Corpuscular Hemoglobin 30.3 pg (28.0-32.0); Mean Corpuscular Hgb Conc. 33.6 g/dL (32.0-36.0); Mean Corpuscular Volume 90.4 fL (80.0-100.0); Monocytes # (auto) 0.2 10 ^3/uL (0-1.3); Monocytes % (auto) 1.5 % (0.0-12.0); Neutrophils # (auto) 9.5 10 ^3/uL (1.6-8.6); Neutrophils % (auto) 91.8 % (37.0-80.0); Platelet Count (auto) 82 10^3/uL (140-450); Red Blood Cells 3.05 10^6/uL (4.5-5.90); Red Cell Distribution Width 23.3 % (11.8-14.3); White Blood Cell 10.3 10^3/uL (4.4-10.8)
[2024-11-25 08:13] LABS: Platelet Estimate Decrea
--- NOTE | 2024-11-25 13:47 | DVHPN2 ---
Subjective Intubated /awake on CPAP and asking to be extubated Reviewed: Care Plan, H&P, Labs, Medications, Previous Orders, Radiology, Other (Consultants) Changes from previous H/P or p: No Changes Objective Vitals Vital Signs Date Time Temp Pulse Resp B/P (MAP) Pulse Ox O2 Delivery O2 Flow Rate FiO2 11/25/24 12:00 98.5 73 14 116/72 (87) 100 98.5 11/25/24 10:00 Mechanical Ventilator+ 30 30 Intake/Output Intake and Output 11/25/24 07:00 Intake Total 413.495 ml Output Total 450 ml Balance -36.505 ml IV Total 81.495 ml Tube Feeding 152 ml Other 180 ml Output Urine Total 450 ml # Bowel Movements 3 General Appearance: Other (Intubated but awake) HEENT: Other (Icteric sclera) Lungs: Other (Few crackles bilateral lungs) Abdomen: Other (Prominent abdomen with ascites) Extremities: Other (Presence of edema bilateral lower extremity) Medications Current Medications Medications Dose Ordered Sig/Gretchen Route Start Time Stop Time Status Last Admin Dose Admin Midazolam HCl 50 ml @ 1 mls/hr Q24H IV 11/11/24 23:30 11/18/24 06:00 4 MLS/HR Pantoprazole Sodium 40 mg BID IV 11/12/24 10:00 11/25/24 10:34 40 MG Midodrine 10 mg TID@0600,1200,1800 PO 11/13/24 06:00 11/25/24 05:26 10 MG Polyethylene Glycol 17 gm DAILYPRN PRN PO 11/13/24 12:15 11/18/24 11:50 17 GM Enteral Nutritional Formula 1,000 ml 30ML/HR GT 11/15/24 11:45 11/25/24 00:06 1,000 ML Vasopressin 20 units/Sodium Chloride 100 ml @ 9 mls/hr Q11H7M IV 11/16/24 16:30 Norepinephrine Bitartrate 250 ml @ 1.875 mls/ hr Q24H IV 11/17/24 15:30 11/25/24 00:05 1.875 MLS/HR Fentanyl Citrate 250 ml @ 2.5 mls/hr Q24H IV 11/21/24 09:45 11/21/24 10:45 5 MLS/HR Dexmedetomidine HCl 400 mcg/ Dextrose 100 ml @ 4.17 mls/hr [id number] IV 11/21/24 09:45 11/24/24 02:47 6.255 MLS/HR Lactulose 30 ml Q2HR PO 11/22/24 14:00 11/25/24 05:27 30 ML Ursodiol 300 mg BID PO 11/23/24 22:00 11/24/24 22:59 300 MG Methylprednisolone Sodium Succinate 20 mg BID IV 11/23/24 22:00 11/25/24 10:34 20 MG Thiamine HCl 100 mg DAILY IV 11/24/24 10:00 11/25/24 10:34 100 MG Folic Acid 1 mg DAILY NG 11/24/24 10:00 11/24/24 10:35 1 MG Laboratory Results Laboratory Tests 11/25/24 05:22 Chemistry Test 11/25/24 05:22 Albumin 2.4 g/dL (3.2-4.8) L Calcium Level 8.6 mg/dL (8.7-10.4) L Total Protein 5.8 g/dL (5.7-8.2) LFT Test 11/25/24 05:22 Alanine Aminotransferase (ALT) 36 U/L (7-40) Alkaline Phosphatase 125 U/L (46-116) H Aspartate Amino Transferase (AST) 74 U/L (13-40) H Total Bilirubin 13.1 mg/dL (0.2-1.0) H Urinalysis Test 11/12/24 03:52 Urine Color Dark-yellow (Yellow) Urine Clarity Turbid (Clear) H Urine pH 5.5 (5.0-9.0) Urine Specific [place] 1.025 (1.001-1.035) Urine Protein Trace (Negative) H Urine Ketones Trace (Negative) Urine Blood Negative /uL (Negative) Urine Nitrite Negative (Negative) Urine Bilirubin 1+ (Negative) Urine Urobilinogen 2 mg/dL (Negative) H Urine Leukocyte Esterase Negative /uL (Negative) Urine RBC 7 /hpf (0 - 3) Urine Microscopic WBC 7 /HPF (0-3) H Urine Squamous Epithelial Cells Few /hpf (<5) Urine Bacteria None seen /hpf (None Seen) Urine Hyaline Casts Many /lpf (0 - 2) Urine Mucus Few (None Seen) Urine Glucose Normal mg/dL (Normal) Blood Gas Results Test 11/25/24 07:27 Arterial Blood pH 7.424 (7.350-7.450) FiO2 % 30.0 Microbiology Microbiology Date/Time Source Procedure Growth Status 11/13/24 04:35 Nose MRSA Screen - Final Complete 11/12/24 03:52 Voided Urine Urine Culture - Final Complete 11/12/24 03:30 Blood Blood Culture - Final NO GROWTH AFTER 5 DAYS OF INCUBATION. Complete 11/12/24 01:20 Peritoneal Fluid Gram Stain - Final Complete 11/12/24 01:20 Peritoneal Fluid Body Fluid Culture - Final Complete Assessment/Plan Assessment/Plan Acute respiratory failure/ventilator Sepsis and septic shock on Levophed Hepatic encephalopathy and alcoholic liver cirrhosis Ascites Possible spontaneous bacterial peritonitis Hypertension Severe anemia Plan: We will try to extubate. ABGs. Parameters. Plan discussed with: Patient, Other (Nursing) My Orders Orders - JO ELDER MD Procedure Category Date Status Time Chest Portable XY 11/25/24 Resulted 06:00 Abg W/ Co-Ox RT 11/25/24 Logged 06:00 Date of Service: Nov 25, 2024 Billing Provider: JO ELDER MD Common Visit Codes: [id number] INP/OBS CARE(HIGH) JO ELDER MD Nov 25, 2024 13:47
--- NOTE | 2024-11-25 21:01 | DVHPN2 ---
Progress Note - Dictate Date Seen: Nov 25, 2024 Medical Necessity Reason Pt with a Central, PICC or Fol: Yes The following are medically ne: Central Line, Cartwright Catheter Reason for cartwright catheter: Strict I&O Subjective Patient was awake during CPAP trial and wanted to be extubated Currently back on AC mode and alert vital signs Vital Sign Date Time Temp Pulse Resp B/P (MAP) Pulse Ox O2 Delivery O2 Flow Rate FiO2 11/25/24 20:45 72 16 104/70 (81) 100 11/25/24 20:02 30 11/25/24 20:00 98.2 98.2 11/25/24 18:00 Mechanical Ventilator+ Total Intake and Output 11/24/24 11/24/24 11/25/24 15:00 23:00 07:00 Intake Total 3.75 ml 20.430 ml 389.315 ml Output Total 400 ml 50 ml Balance 3.75 ml -379.570 ml 339.315 ml medications Current Medications Medications Dose Ordered Sig/Gretchen Route Start Time Stop Time Status Last Admin Dose Admin Midazolam HCl 50 ml @ 1 mls/hr Q24H IV 11/11/24 23:30 11/18/24 06:00 4 MLS/HR Pantoprazole Sodium 40 mg BID IV 11/12/24 10:00 11/25/24 10:34 40 MG Midodrine 10 mg TID@0600,1200,1800 PO 11/13/24 06:00 11/25/24 17:52 10 MG Polyethylene Glycol 17 gm DAILYPRN PRN PO 11/13/24 12:15 11/18/24 11:50 17 GM Enteral Nutritional Formula 1,000 ml 30ML/HR GT 11/15/24 11:45 11/25/24 00:06 1,000 ML Vasopressin 20 units/Sodium Chloride 100 ml @ 9 mls/hr Q11H7M IV 11/16/24 16:30 Norepinephrine Bitartrate 250 ml @ 1.875 mls/ hr Q24H IV 11/17/24 15:30 11/25/24 00:05 1.875 MLS/HR Fentanyl Citrate 250 ml @ 2.5 mls/hr Q24H IV 11/21/24 09:45 11/21/24 10:45 5 MLS/HR Dexmedetomidine HCl 400 mcg/ Dextrose 100 ml @ 4.17 mls/hr [id number] IV 11/21/24 09:45 11/25/24 15:38 4.17 MLS/HR Lactulose 30 ml Q2HR PO 11/22/24 14:00 11/25/24 17:52 30 ML Ursodiol 300 mg BID PO 11/23/24 22:00 11/24/24 22:59 300 MG Methylprednisolone Sodium Succinate 20 mg BID IV 11/23/24 22:00 11/25/24 10:34 20 MG Thiamine HCl 100 mg DAILY IV 11/24/24 10:00 11/25/24 10:34 100 MG Folic Acid 1 mg DAILY NG 11/24/24 10:00 11/24/24 10:35 1 MG objective General: Patient is intubated and off sedation Chest: lung santos clear to auscultation Heart: RRR, no murmur Abdomen: [id number]-cm-[id number]-distended, +BS;umbilical hernia Ext no c/c/e laboratory and microbiology Laboratory Tests 11/25/24 05:22 Test 11/25/24 05:22 Range/Units Serum Glucose 164 H 74-106 mg/dL Problems(with codes): (1) Ascites due to alcoholic cirrhosis (2) Anemia, unspecified (3) Thrombocytopenia (4) Cirrhosis (5) Elevated liver enzymes (6) E. coli septicemia (7) Splenomegaly (8) Ascites (9) Generalized weakness (10) Hepatic encephalopathy Prognosis Plan Continue CPAP trial and extubation as tolerated There is plan for repeat paracentesis in the next 24-48 hours Advance tube feedings as tolerated Continue lactulose 30 mL q.8 hours Monitor labs MELD score 27 points; 19.6% estimated 3 month mortality Maddrey discrimination function 46 points suggestive of poor prognosis Continue steroids and ursodiol Dietary Evaluation Review Recommendations by RD: Increase Calorie Intake Comments: 1) Increase TF rate to 55 mL/hr goal rate as tolerated. Flush with 50 mL free H2O Q4H Goal rate will provide 1584 kcals, 99g Pro, and 1371 mL free H2O (including flushes) per 24 hrs. Goal rate will meet ~ 97% estimated daily energy needs and ~ 93% estimated daily protein needs 2) Advance to hepatic diet when medically feasible, pending ARCHITECTURAL DRAFTER aproval 3) Continue to monitor I&O, labs, and skin integrity. Goal TF rate will meet increased protein needs r/t cirrhosis, critical illness, and low Antolin score Expected Outcomes/Goals: 1) EN rate to increase to meet at least 75% of patient's estimated needs 2) diet to advance 3) labs and skin integrity to improve 4) f/u in 2-3 days Interpretation of weight loss: >7.5% in 3 months Fluid Accumulation (Severe): Moderate Fluid Retention Protein Calorie Malnutrition: Severe Is there a minimum of two crit: Yes Plan discussed with: Patient, Other (ANNIE Nurse) KATELYN JOYCE MD Nov 25, 2024 21:01
--- NOTE | 2024-11-25 21:39 | DVHPN2 ---
Progress Note - Dictate Date Seen: Nov 25, 2024 Medical Necessity Reason Pt with a Central, PICC or Fol: Yes The following are medically ne: Central Line, Cartwright Catheter Reason for cartwright catheter: Strict I&O Subjective Patient seen and examined at bedside. Intubated on mechanical ventilator. Overnight events reviewed. vital signs Vital Sign Date Time Temp Pulse Resp B/P (MAP) Pulse Ox O2 Delivery O2 Flow Rate FiO2 11/25/24 21:00 69 14 112/69 (83) 100 11/25/24 20:02 30 11/25/24 20:00 98.2 98.2 11/25/24 20:00 Mechanical Ventilator+ Total Intake and Output 11/24/24 11/24/24 11/25/24 15:00 23:00 07:00 Intake Total 3.75 ml 20.430 ml 389.315 ml Output Total 400 ml 50 ml Balance 3.75 ml -379.570 ml 339.315 ml medications Current Medications Medications Dose Ordered Sig/Gretchen Route Start Time Stop Time Status Last Admin Dose Admin Midazolam HCl 50 ml @ 1 mls/hr Q24H IV 11/11/24 23:30 11/18/24 06:00 4 MLS/HR Pantoprazole Sodium 40 mg BID IV 11/12/24 10:00 11/25/24 10:34 40 MG Midodrine 10 mg TID@0600,1200,1800 PO 11/13/24 06:00 11/25/24 17:52 10 MG Polyethylene Glycol 17 gm DAILYPRN PRN PO 11/13/24 12:15 11/18/24 11:50 17 GM Enteral Nutritional Formula 1,000 ml 30ML/HR GT 11/15/24 11:45 11/25/24 00:06 1,000 ML Vasopressin 20 units/Sodium Chloride 100 ml @ 9 mls/hr Q11H7M IV 11/16/24 16:30 Norepinephrine Bitartrate 250 ml @ 1.875 mls/ hr Q24H IV 11/17/24 15:30 11/25/24 00:05 1.875 MLS/HR Fentanyl Citrate 250 ml @ 2.5 mls/hr Q24H IV 11/21/24 09:45 11/21/24 10:45 5 MLS/HR Dexmedetomidine HCl 400 mcg/ Dextrose 100 ml @ 4.17 mls/hr [id number] IV 11/21/24 09:45 11/25/24 15:38 4.17 MLS/HR Lactulose 30 ml Q2HR PO 11/22/24 14:00 11/25/24 17:52 30 ML Ursodiol 300 mg BID PO 11/23/24 22:00 11/24/24 22:59 300 MG Methylprednisolone Sodium Succinate 20 mg BID IV 11/23/24 22:00 11/25/24 10:34 20 MG Thiamine HCl 100 mg DAILY IV 11/24/24 10:00 11/25/24 10:34 100 MG Folic Acid 1 mg DAILY NG 11/24/24 10:00 11/24/24 10:35 1 MG objective Gen.: Patient lying in bed in medical ICU. Intubated on mechanical ventilator. Head: Normocephalic, atraumatic. Eyes: PERRLA. Ears: Normal external anatomy. Throat: Endotracheal tube and orogastric tube in place. Neck: Supple, trachea midline. Chest: Transmitted breath sounds bilaterally. Decreased air entry bilaterally. No wheezing. Bibasilar crackles. Cardiovascular: Positive S1, positive S2. Regular rate and rhythm. Abdomen: Positive bowel sounds in all 4 quadrants. Soft, nontender, nondistended. : Cartwright in place. Normal external genitalia. Rectal: Deferred. Skin: Warm, dry. Intact. Extremities: 2+ radial pulses bilaterally. No lower extremity edema. Neuro: Off sedation laboratory and microbiology Laboratory Tests 11/25/24 05:22 Test 11/25/24 05:22 Range/Units Serum Glucose 164 H 74-106 mg/dL Assessment/Plan Impression: Acute hypoxic respiratory failure Metabolic acidosis On mechanical ventilator Septic shock Cirrhosis Ascites Atelectasis Parkinson's Disease Pulmonary edema Events: Tolerated CPAP today for 2 hours Remains off sedation On Precedex drip Vent support On AC mode; RR 18, VT 450, PEEP 5, FiO2 30% ABG reviewed, compensated CXR reveals no acute disease Off Levophed this PM, hemodynamically stable. Continue antibiotics Continue IV steroids Midodrine Monitor blood pressure Labs and imaging reviewed. Rest of plan as noted below. Plan: s/p intubation on mechanical ventilator. On AC mode; RR 18, VT 450, PEEP 5, FiO2 30% Titrate FIO2 to keep O2 saturation above 90%. VAP bundle. Daily ABG and CXR while intubated Off sedation Continue antibiotics. F/u cultures. Pressors if necessary for hemodynamic support Titrate to keep mean arterial pressure greater than 65 mmHg. S/p paracentesis by IR on 11/16/24. Tube feeds for nutritional support Monitor renal function Monitor electrolytes. Supplement as necessary. Monitor ins and outs. Maintain euvolemia. GI prophylaxis. DVT prophylaxis. Prognosis: Poor given patient's multiple co-morbidities. Condition: Critical Rest of plan per hospitalist and other consultants. A total of 35 minutes of critical care time was spent reviewing the patient record, examining the patient, making a diagnostic and therapeutic plan, discussing this plan with the medical personnel, following up on diagnostic studies and following the patient for clinical stability excluding any and all procedures. At least 50% of this time was spent in direct, [id number] contact. Thank you, Dr. Jansen, for allowing me to participate in this patient's care. Further recommendations will depend on the patient's clinical course. Please do not hesitate to contact me if you have any questions or concerns. This medical document was created using an electronic medical record system with [email or web address] dictation system. Although these documentations are being carefully reviewed, there may still be some phonetic and typographical changes. The errors are purely typographical, due to imperfection on the software program, and do not reflect any compromise in the patient's medical care. Dietary Evaluation Review Recommendations by RD: Increase Calorie Intake Comments: 1) Increase TF rate to 55 mL/hr goal rate as tolerated. Flush with 50 mL free H2O Q4H Goal rate will provide 1584 kcals, 99g Pro, and 1371 mL free H2O (including flushes) per 24 hrs. Goal rate will meet ~ 97% estimated daily energy needs and ~ 93% estimated daily protein needs 2) Advance to hepatic diet when medically feasible, pending [employer]JECTS DEVELOPER aproval 3) Continue to monitor I&O, labs, and skin integrity. Goal TF rate will meet increased protein needs r/t cirrhosis, critical illness, and low Antolin score Expected Outcomes/Goals: 1) EN rate to increase to meet at least 75% of patient's estimated needs 2) diet to advance 3) labs and skin integrity to improve 4) f/u in 2-3 days Interpretation of weight loss: >7.5% in 3 months Fluid Accumulation (Severe): Moderate Fluid Retention Protein Calorie Malnutrition: Severe Is there a minimum of two crit: Yes Plan discussed with: Other (BRENT Flaherty) Critical Care Time(min): 35 EILEEN LORENZO MD Nov 25, 2024 21:39
[2024-11-26] VITALS (110 sets, daily range): BP systolic 87–126; BP diastolic 54–87; PULSE 46–105; RESP 9–27; TEMP 97.2–98.3; O2SAT 79–100
[2024-11-26 05:20] LABS: Basophils # (auto) 0 10 ^3/uL (0-0.2); Eosinophils # (auto) 0 10 ^3/uL (0-0.8); Hemoglobin 8.5 g/dL (13.5-17.5); Lymphocytes # (auto) 0.3 10 ^3/uL (0.4-5.4); Monocytes # (auto) 0.3 10 ^3/uL (0-1.3); Monocytes % (auto) 4.8 % (0.0-12.0); Neutrophils # (auto) 4.9 10 ^3/uL (1.6-8.6); White Blood Cell 5.4 10^3/uL (4.4-10.8)
[2024-11-26 05:23] LABS: Hematocrit 25.4 % (41.0-53.0); Lymphocytes % (auto) 5.4 % (10.0-50.0); Mean Corpuscular Hemoglobin 30.1 pg (28.0-32.0); Mean Corpuscular Hgb Conc. 33.5 g/dL (32.0-36.0); Mean Corpuscular Volume 89.8 fL (80.0-100.0); Neutrophils % (auto) 89.8 % (37.0-80.0); Platelet Count (auto) 42 10^3/uL (140-450); Red Blood Cells 2.83 10^6/uL (4.5-5.90)
[2024-11-26 06:39] LABS: Anisocytosis Slight; Ovalocytes FEW
[2024-11-26 06:42] LABS: Platelet Estimate Decreased
[2024-11-26 07:31] LABS: Base Excess -7.2 mmol/L (-2.0-3.0)
[2024-11-26 09:07] LABS: Carbon Dioxide 20 mmol/L (20-31); Potassium 4.2 mmol/L (3.5-5.1); Sodium 140 mmol/L (136-145)
[2024-11-26 09:09] LABS: Alanine Aminotransferase 41 U/L (7-40); Albumin 2.4 g/dL (3.2-4.8); Alkaline Phosphatase 118 U/L (46-116); Aspartate Aminotransferase 72 U/L (13-40); Bilirubin, Total 12.3 mg/dL (0.2-1.0); Blood Urea Nitrogen 53 mg/dL (9-23); Calcium 8.4 mg/dL (8.7-10.4); Glucose 161 mg/dL (74-106)
[2024-11-26 09:17] LABS: INR 1.8 (0.9-1.15)
[2024-11-26 09:44] LABS: BUN/Creatinine Ratio 24.2 (10.0-20.0)
[2024-11-26 09:47] LABS: Total Protein 5.6 g/dL (5.7-8.2)
--- NOTE | 2024-11-26 10:10 | DVH ---
US PARACENTESIS, HISTORY: ASCITES PROCEDURE: Informed consent was obtained. The patient was placed in supine position. A limited locali zation ultrasound of the abdomen was obtained, and the skin site over the largest pocket of fluid was marked and entry site was prepped with chlorhexidine which was allowed to dry and draped in the usua l sterile fashion. Time out was performed. Following administration of 1% lidocaine local anesthetic, a 5 Brazilian centesis needle catheter was percutaneously inserted into the peritoneal collection until fluid was aspirated. The catheter was advanced into the fluid collection and the needle removed. Abo ut 6000 cc of fluid was aspirated and specimen sent for appropriate cultures/cytology/cultures and cy tology. The catheter was then removed and a sterile dressing applied. No immediate complication was identified. FINDINGS: Limited ultrasound imaging demonstrates moderate ascites. Aspirated fluid was clear and ser ous. IMPRESSION: US-guided paracentesis with 6L removed.
[2024-11-26 10:41] LABS: Anion Gap 6 (5-15)
[2024-11-26 10:47] LABS: Chloride 114 mmol/L (98-107)
[2024-11-26 11:49] LABS: Base Excess -4.9 mmol/L (-2.0-3.0)
[2024-11-26] MEDS: ATROPINE SULF 1 MG/10ml SYR IV ONE (12:45)
[2024-11-26] MEDS ORDERED: ATROPINE SULF 1 MG/10ml SYR IV PRN (12:45)
--- NOTE | 2024-11-26 13:31 | DVHPNRES ---
Progress Note Date Seen: Nov 26, 2024 Resident Creating Document: GUSTAVO SANTIZO Medical Necessity Reason Pt with a Central, PICC or Fol: Yes The following are medically ne: Central Line, Cartwright Catheter Reason for cartwright catheter: Strict I&O Subjective Review of Systems HPI-Patient is 29 years old male with past medical history of cirrhosis of liver due to alcoholism, hypertension, history of recurrent hospitalization, history of recurrent paracentesis due to malignant ascites was admitted to the hospital due to altered mental status. Patient was brought in by the family due to altered mental status for last 5 days which was getting worse lately. Father patient had some vomiting but no blood. Patient's abdominal of the getting bigger as per father. Patient was recently discharged from [facility] on 11/06/2024. On arrival patient was on altered mental status with suspected metabolic encephalopathy. Patient was intubated to maintain his airway. Initial lab workup revealed WBC 4.9, hemoglobin 8.8, platelet 97, sodium 132, potassium 5.2, normal anion gap 7 BUN 37, serum creatinine 1.68, limit lactic acidosis with lactic acid 3.1> 3.9> 4.2, calcium 8.4, magnesium 2.2, serum bilirubin 4.1, AST 98, ALT 48, alkaline phosphatase 165, ammonia 152, albumin 2.3, analysis not significant for UTI, INR 1.59, CXR no acute cardiopulmonary disease. 11/12/2024 Patient had paracentesis of 4.5 L of fluid early in the morning. Central line was placed in the right internal jugular vein.Patient had today on 11/16/2024 and 6.5 L fluid was removed Patient was recently hospitalized intubated on 10/25/2024 and extubated on 11/01/2024. S/p paracentesis on 10/28/24 - 2.1 liters of ascitic fluid were drained. See separate procedure note for details. S/p 5.2 L paracentesis done on 11/05/2024 Ascitic fluid cultures grew Staph epidermidis E coli septicemia On 10/25/2024 blood culture revealed E coli- sensitive to Levaquin On 10/26/2024 body fluid grew Staphylococcus epidermidis-sensitive to Levaquin CT SCAN -on 10/25/2024 revealed cirrhosis of liver, splenomegaly, cholelithiasis. Patient had paracentesis on 10/21/2024, 10/15/2024, 02/01/25, 11/05/24- Patient was seen today for clinical evaluation. Labs and chart reviewed. Patient had thoracentesis of 6 L of fluid Patient was extubated to be following CPAP trial, breathing well with NC O2 Patient with sinus bradycardia Ordered swallow evaluation Overnight patient's BP ranging from -96 113/60-69, pulse-52- 64, temperature 97.2-98.8 I/O- intake 727, output 600, positive balance 117 Lab workup revealed ABG -pH 7.41, pCO2 30.6, PO2 75.2, bicarbonate 19. Patient with pancytopenia Leukopenia WBC 4.9>> 5.7 >2.8> 02.1> 2.3> 2.0> 2.4> 3.3> 4.6> 4.4> 3.3> 3.9> 5.4 hemoglobin 8.8> 8.1,> 5.7> 7.3> 7.6> 8.1> 8.2> 8.8> 8.2> 7.4> 7.8> 8.3> 8.5 thrombocytopenia with platelet 97> 98> 50> 42> 45> 46> 42> 44> 48> 38> 36> 44> 42 Sodium 132 >132> 137> 138> 139>> 139> 140> 140> 141> 1.41> 142> 139> 140 Potassium > 5.2 5.4> 4.8> 4.2> 4.3> 4.2 > 4.1> 4.1> 4.1> 4.2> 3.8> 3.9> 4.0> 4.2 Serum creatinine 1.68> 1.73> 1.35> 0.81> 0.64> 0.75> 1.25> 1.88> 2.10> 1.61> 1.56 BUN 37> 38> 34> 19> 17> 11> 13> 18> 27> 30> 28> 31> 53 Lactic Acidosis resolved 3.1> 3.9> 4.2?> 3.4> 1.7> 1.8>> 2.19 INR 1.59> 1.70> 1.71> 1.76> 1.78> 1.89> 1.83> 1.88> 1.8 Ammonia 152> 141>45> 52> 46> 39> 48> 45> 45> 65> 19 transaminitis with serum total bilirubin 4.1> 4.1> 5.5> 8.5> 8.6> 7.6> 7.4> 8.4> 9.1> 9.6> 10.6> 11.0> 13.1> 12.3 AST-98>79> 58> 52> 57> 60> 84> 88> 84> 76>70> >83> 74> to AST> 43> 38> 28> 62> 29> 23> 28> 29 > 29> 29> 28>> 32 36> 41 Senior Ux Designer spoke to patient's father Morris, , discussed patient's current medical condition, plan of care and answered his question Objective vital signs Vital Sign Date Time Temp Pulse Resp B/P (MAP) Pulse Ox O2 Delivery O2 Flow Rate FiO2 11/26/24 11:38 30 11/26/24 11:38 52 11/26/24 11:38 17 100 Mechanical Ventilator+ 11/26/24 10:28 8.0 11/26/24 09:38 112/78 (89) 11/26/24 04:00 97.2 97.2 Total Intake and Output 11/25/24 11/25/24 11/26/24 15:00 23:00 07:00 Intake Total 54.390 ml 243.380 ml 429.910 ml Output Total 250 ml 350 ml Balance 54.390 ml -6.620 ml 79.910 ml medications Current Medications Medications Dose Ordered Sig/Gretchen Route Start Time Stop Time Status Last Admin Dose Admin Midazolam HCl 50 ml @ 1 mls/hr Q24H IV 11/11/24 23:30 11/18/24 06:00 4 MLS/HR Pantoprazole Sodium 40 mg BID IV 11/12/24 10:00 11/26/24 12:02 40 MG Midodrine 10 mg TID@0600,1200,1800 PO 11/13/24 06:00 11/26/24 05:43 10 MG Polyethylene Glycol 17 gm DAILYPRN PRN PO 11/13/24 12:15 11/18/24 11:50 17 GM Enteral Nutritional Formula 1,000 ml 30ML/HR GT 11/15/24 11:45 11/25/24 23:09 1,000 ML Vasopressin 20 units/Sodium Chloride 100 ml @ 9 mls/hr Q11H7M IV 11/16/24 16:30 Norepinephrine Bitartrate 250 ml @ 1.875 mls/ hr Q24H IV 11/17/24 15:30 11/25/24 00:05 1.875 MLS/HR Fentanyl Citrate 250 ml @ 2.5 mls/hr Q24H IV 11/21/24 09:45 11/21/24 10:45 5 MLS/HR Dexmedetomidine HCl 400 mcg/ Dextrose 100 ml @ 4.17 mls/hr [id number] IV 11/21/24 09:45 11/26/24 03:09 14.595 MLS/HR Lactulose 30 ml Q2HR PO 11/22/24 14:00 11/26/24 05:43 30 ML Ursodiol 300 mg BID PO 11/23/24 22:00 11/25/24 23:01 300 MG Methylprednisolone Sodium Succinate 20 mg BID IV 11/23/24 22:00 11/26/24 12:02 20 MG Thiamine HCl 100 mg DAILY IV 11/24/24 10:00 11/26/24 12:02 100 MG Folic Acid 1 mg DAILY NG 11/24/24 10:00 11/24/24 10:35 1 MG Atropine Sulfate 1 mg Q4HPRN PRN IV 11/26/24 12:45 Examination General examination- awake, conversant HEENT- PEERLA, no acute nasal discharge Cardiovascular- S1-S2 audible, rate and rhythm regular, no murmur Respiratory- CTAB, no wheeze or rhonchi Gastrointestinal-nontender, bowel sound+. Abdomen distended + Musculoskeletal-no acute joint swelling or tenderness or redness# Lower extremity- no leg edema Neurological- Skin- no acute rash or purpura laboratory and microbiology Laboratory Tests 11/26/24 04:56 Test 11/26/24 04:56 Range/Units Serum Glucose 161 H 74-106 mg/dL Microbiology Date/Time Source Procedure Growth Status 11/13/24 04:35 Nose MRSA Screen - Final Complete 11/12/24 03:52 Voided Urine Urine Culture - Final Complete 11/12/24 03:30 Blood Blood Culture - Final NO GROWTH AFTER 5 DAYS OF INCUBATION. Complete 11/12/24 01:20 Peritoneal Fluid Gram Stain - Final Complete 11/12/24 01:20 Peritoneal Fluid Body Fluid Culture - Final Complete Problem List/Assessment/Plan Problem List/Assessment/Plan Assessment-patient is 29 years old male with a history of cirrhosis of liver due to alcoholism/hypertension came with recurrent hospitalization with history of recurrent paracentesis due to melena and ascites was brought into the hospital due to altered mental status and was to found have hepatic encephalopathy with altered mental status. Patient is intubated to maintain his airway due to altered mental status #Neurological -hepatic encephalopathy due to acute on chronic hepatic failure/septic shock -status post mechanical ventilation -patient was extubated on 11/26/2024 -continue current managements -blood culture no growth -MRSA screening negative -urine culture-negative #Cardiovascular Septic shock --History of hypertension -on Levophed -avoid dehydration and hepatology or nephrotoxic medications #Respiratory -Suspected Acute hypoxic respiratory failure. -On mechanical ventilation -respiratory culture -Staphylococcus hemolyticus -blood culture -negative -MRSA screening negative -urine culture-no growth ---respiratory culture -Staphylococcus hemolyticus -blood culture no growth -MRSA screening negative -urine culture preliminary no growth #Gastrointestinal -Acute on chronic decompensated liver failure due to alcoholic cirrhosis of liver -Cirrhosis of liver likely due to alcoholism -Malignant ascites -Suspected spontaneous bacterial peritonitis -constipation -Transaminitis likely due to acute on chronic hepatic failure -Splenomegaly -Cholelithiasis -abdominal hernia --respiratory culture- Staphylococcus hemolyticus -blood culture -negative -MRSA screening negative -urine culture-no growth -continue lactulose as prescribed -plan is to have 2-3 bowel movement per day -continue rifaximin 550 mg via OG tube . b.i.d. -continue lactulose 30 mL q.2 h #Genitourinary/Renal -alcoholic cirrhosis of the liver, MELD score 26, estimated 3 month mortality 19.6% -spontaneous bacterial peritonitis -suspected hepatorenal syndrome likely due to acute decompensated hepatic failure -ANDRÉS likely due to VMN -mild hyponatremia likely delusional -FOBT Positive, -status post GI consult Avoid dehydration and hepatic or nephrotoxic medications Midodrine 10 mg via G-tube t.i.d. Continue vasopressin as prescribed #Infectious -suspected spontaneous bacterial peritonitis -septic shock -continue Zosyn and vancomycin as prescribed -by with OG-tube b.i.d. #Hematological -Severe anemia likely due to hepatic failure/hypersplenism -thrombocytopenia likely due to prism/splenic sequestration -monitor CBC, any sign or symptom of bleeding -status post 2 units of packed blood cell blood transfusion #metabolic or endocrine disorder -Lactic acidosis likely due to hepatic failure/septic shock -metabolic acidosis -hyper ammonia -hypocalcemia -hypoalbuminemia #Skin/alimentary -Jaundice likely due to acute on chronic hepatic failure -avoid hepatic or nephrotoxic medication or dehydration Drips-levophed ET tube placed on 10/14/2024 Cartwright's catheter Goals of care/ Code status -DNR ; discussed>15 minutes PUD prophylaxis: SCD DVT prophylaxis: Pantoprazole Plan discussed with Dr. Montano, nursing staff, , father Total critical time spent on patient evaluation, chart review, assessment and plan, total critical time spent including monitoring mechanical ventilation, CPAP trial excluding procedure 87 minutes Plan discussed with: Patient, Other (RN) My Orders My Orders Orders - GUSTAVO SANTIZO RESIDENT Procedure Category Date Status Time Abg W/ Co-Ox RT 11/26/24 Logged 06:00 Cpap/Sed Vacation Med ORDERS 11/26/24 Transmitted Weaning 08:36 Chest Portable XY 11/26/24 Logged 08:48 Paracentesis US 11/26/24 Resulted Extubate ARACELY 11/26/24 In Process 10:28 Abg W/ Co-Ox RT 11/26/24 Logged 10:00 Atropine Adult Syr PHA 11/26/24 In Process 0.1mg/Ml (Atropine Vargas 12:45 Dietary Evaluation Review Recommendations by RD: Increase Calorie Intake Comments: 1) Increase TF rate to 55 mL/hr goal rate as tolerated. Flush with 50 mL free H2O Q4H Goal rate will provide 1584 kcals, 99g Pro, and 1371 mL free H2O (including flushes) per 24 hrs. Goal rate will meet ~ 97% estimated daily energy needs and ~ 93% estimated daily protein needs 2) Advance to hepatic diet when medically feasible, pending CASH PROCESSOR aproval 3) Continue to monitor I&O, labs, and skin integrity. Goal TF rate will meet increased protein needs r/t cirrhosis, critical illness, and low Antolin score Expected Outcomes/Goals: 1) EN rate to increase to meet at least 75% of patient's estimated needs 2) diet to advance 3) labs and skin integrity to improve 4) f/u in 2-3 days Interpretation of weight loss: >7.5% in 3 months Fluid Accumulation (Severe): Moderate Fluid Retention Protein Calorie Malnutrition: Severe Is there a minimum of two crit: Yes Date of Service: Nov 26, 2024 Billing Provider: DHEERAJ MONTANO MD Common Visit Codes: [id number] CARE 30-74 MIN, [id number] CARE-EACH +30MIN GUSTAVO SANTIZO RESIDENT Nov 26, 2024 13:31 DHEERAJ MONTANO MD Nov 27, 2024 15:58
--- NOTE | 2024-11-26 14:44 | DVH ---
INDICATION: PNA TECHNIQUE: Single frontal view of the chest was obtained COMPARISON: XY CHEST PORTABLE on DOS: 11/25/24, XY CHEST PORTABLE on DOS: 11/24/24, XY CHEST PORTABLE o n DOS: 11/23/24, XY CHEST PORTABLE on DOS: 11/22/24, XY CHEST PORTABLE on DOS: 11/21/24, XY CHEST PORTAB LE on DOS: 11/25/24 FINDINGS: Lines and Tubes: Endotracheal tube and nasogastric tube removed. Right central venous catheter unch anged. Lungs: Clear with diminished lung volumes. Pleura: No effusion. No pneumothorax. Cardiomediastinal contours: Unremarkable Bones: Unremarkable IMPRESSION: 1. Bibasilar atelectasis.
[2024-11-26 21:28] LABS: Urine Amorphous Crystal FEW /hpf (None Seen); Urine Bacteria FEW /hpf (None Seen); Urine Blood 2+ /uL (Negative); Urine Clarity Ex.Turbid (Clear); Urine Color Dark-Orange (Yellow); Urine Mucus FEW (None Seen); Urine Protein, UAD 2+ (Negative); Urine Specific Gravity 1.026 (1.001-1.035); Urine Squamous Epithelial Cell FEW /hpf (<5); Urine Urobilinogen 2 mg/dL (Negative); Urine WBC 62 /HPF (0-3); Urine pH 5.5 (5.0-9.0)
[2024-11-27] VITALS (96 sets, daily range): BP systolic 95–128; BP diastolic 53–85; PULSE 90–121; RESP 11–40; TEMP 98–100.7; O2SAT 75–100
[2024-11-27 05:23] LABS: Basophils # (auto) 0 10 ^3/uL (0-0.2); Basophils % (auto) 0.1 % (0.0-2.0); Eosinophils # (auto) 0 10 ^3/uL (0-0.8); Hematocrit 27.9 % (41.0-53.0); Hemoglobin 9.3 g/dL (13.5-17.5); Lymphocytes # (auto) 0.3 10 ^3/uL (0.4-5.4); Lymphocytes % (auto) 3.2 % (10.0-50.0); Mean Corpuscular Hemoglobin 30.1 pg (28.0-32.0); Mean Corpuscular Hgb Conc. 33.5 g/dL (32.0-36.0); Monocytes # (auto) 0.4 10 ^3/uL (0-1.3); Neutrophils # (auto) 9.8 10 ^3/uL (1.6-8.6); Neutrophils % (auto) 92.7 % (37.0-80.0); Platelet Count (auto) 73 10^3/uL (140-450); Red Cell Distribution Width 23.9 % (11.8-14.3); White Blood Cell 10.6 10^3/uL (4.4-10.8)
[2024-11-27 05:44] LABS: INR 1.79 (0.9-1.15); Prothrombin Time 17.9 sec (9.3-11.8)
[2024-11-27 06:31] LABS: Anisocytosis Slight
[2024-11-27 06:32] LABS: Platelet Estimate Decreased
--- NOTE | 2024-11-27 07:31 | DVHPNRES ---
Progress Note Date Seen: Nov 27, 2024 Resident Creating Document: GUSTAVO SANTIZO Medical Necessity Reason Pt with a Central, PICC or Fol: Yes The following are medically ne: Central Line, Cartwright Catheter Reason for cartwright catheter: Strict I&O Subjective Review of Systems HPI-Patient is 29 years old male with past medical history of cirrhosis of liver due to alcoholism, hypertension, history of recurrent hospitalization, history of recurrent paracentesis due to malignant ascites was admitted to the hospital due to altered mental status. Patient was brought in by the family due to altered mental status for last 5 days which was getting worse lately. Father patient had some vomiting but no blood. Patient's abdominal of the getting bigger as per father. Patient was recently discharged from [facility] on 11/06/2024. On arrival patient was on altered mental status with suspected metabolic encephalopathy. Patient was intubated to maintain his airway. Initial lab workup revealed WBC 4.9, hemoglobin 8.8, platelet 97, sodium 132, potassium 5.2, normal anion gap 7 BUN 37, serum creatinine 1.68, limit lactic acidosis with lactic acid 3.1> 3.9> 4.2, calcium 8.4, magnesium 2.2, serum bilirubin 4.1, AST 98, ALT 48, alkaline phosphatase 165, ammonia 152, albumin 2.3, analysis not significant for UTI, INR 1.59, CXR no acute cardiopulmonary disease. 11/12/2024 Patient had paracentesis of 4.5 L of fluid early in the morning. Central line was placed in the right internal jugular vein.Patient had today on 11/16/2024 and 6.5 L fluid was removed Patient was recently hospitalized intubated on 10/25/2024 and extubated on 11/01/2024. S/p paracentesis on 10/28/24 - 2.1 liters of ascitic fluid were drained. See separate procedure note for details. S/p 5.2 L paracentesis done on 11/05/2024 Ascitic fluid cultures grew Staph epidermidis E coli septicemia On 10/25/2024 blood culture revealed E coli- sensitive to Levaquin On 10/26/2024 body fluid grew Staphylococcus epidermidis-sensitive to Levaquin CT SCAN -on 10/25/2024 revealed cirrhosis of liver, splenomegaly, cholelithiasis. Patient had paracentesis on 10/21/2024, 10/15/2024, 02/01/25, 11/05/24- Patient was seen today for clinical evaluation. Labs and chart reviewed. Patient was extubated on 11/26/2024 Ordered for paracentesis tomorrow on 11/28/24 before discharge IR consult in place Overnight patient's BP ranging from T8-111/54-73,, pulse 90-109,, temperature 97.2-98.3 I/O- intake 60, output 850, negative balance 189 Lab workup revealed Patient with pancytopenia Leukopenia WBC 4.9>> 5.7 >2.8> 02.1> 2.3> 2.0> 2.4> 3.3> 4.6> 4.4> 3.3> 3.9> 5.4> 10.6 hemoglobin 8.8> 8.1,> 5.7> 7.3> 7.6> 8.1> 8.2> 8.8> 8.2> 7.4> 7.8> 8.3> 8.5> 9.3 thrombocytopenia with platelet 97> 98> 50> 42> 45> 46> 42> 44> 48> 38> 36> 44> 42> 73 Sodium 132 >132> 137> 138> 139>> 139> 140> 140> 141> 1.41> 142> 139> 140> 140 Potassium > 5.2 5.4> 4.8> 4.2> 4.3> 4.2 > 4.1> 4.1> 4.1> 4.2> 3.8> 3.9> 4.0> 4.2> 4.2 Serum creatinine 1.68> 1.73> 1.35> 0.81> 0.64> 0.75> 1.25> 1.88> 2.10> 1.61> 1.56> 2.19 BUN 37> 38> 34> 19> 17> 11> 13> 18> 27> 30> 28> 31> 53>45> 53 Lactic Acidosis resolved 3.1> 3.9> 4.2?> 3.4> 1.7> 1.8>> 2.19 INR 1.59> 1.70> 1.71> 1.76> 1.78> 1.89> 1.83> 1.88> 1.8>1.79 Ammonia 152> 141>45> 52> 46> 39> 48> 45> 45> 65> 19 transaminitis with serum total bilirubin 4.1> 4.1> 5.5> 8.5> 8.6> 7.6> 7.4> 8.4> 9.1> 9.6> 10.6> 11.0> 13.1> 12.3 AST-98>79> 58> 52> 57> 60> 84> 88> 84> 76>70> >83> 74> to AST> 43> 38> 28> 62> 29> 23> 28> 29 > 29> 29> 28>> 32 36> 41 provider spoke to patient's father Morris, , discussed patient's current medical condition, plan of care and answered his question Objective vital signs Vital Sign Date Time Temp Pulse Resp B/P (MAP) Pulse Ox O2 Delivery O2 Flow Rate FiO2 11/27/24 06:30 109 16 106/63 (77) 100 11/27/24 06:00 Room Air* 0 21 11/27/24 04:00 98.0 98.0 Total Intake and Output 11/26/24 11/26/24 11/27/24 15:00 23:00 07:00 Intake Total 1.875 ml 650 ml Output Total 450 ml 400 ml Balance 1.875 ml -450 ml 250 ml medications Current Medications Medications Dose Ordered Sig/Gretchen Route Start Time Stop Time Status Last Admin Dose Admin Midazolam HCl 50 ml @ 1 mls/hr Q24H IV 11/11/24 23:30 11/18/24 06:00 4 MLS/HR Pantoprazole Sodium 40 mg BID IV 11/12/24 10:00 11/26/24 21:42 40 MG Midodrine 10 mg TID@0600,1200,1800 PO 11/13/24 06:00 11/27/24 06:22 10 MG Enteral Nutritional Formula 1,000 ml 30ML/HR GT 11/15/24 11:45 11/25/24 23:09 1,000 ML Vasopressin 20 units/Sodium Chloride 100 ml @ 9 mls/hr Q11H7M IV 11/16/24 16:30 Norepinephrine Bitartrate 250 ml @ 1.875 mls/ hr Q24H IV 11/17/24 15:30 11/26/24 13:54 1.875 MLS/HR Fentanyl Citrate 250 ml @ 2.5 mls/hr Q24H IV 11/21/24 09:45 11/21/24 10:45 5 MLS/HR Dexmedetomidine HCl 400 mcg/ Dextrose 100 ml @ 4.17 mls/hr [id number] IV 11/21/24 09:45 11/26/24 03:09 14.595 MLS/HR Ursodiol 300 mg BID PO 11/23/24 22:00 11/26/24 21:42 300 MG Methylprednisolone Sodium Succinate 20 mg BID IV 11/23/24 22:00 11/26/24 21:43 20 MG Thiamine HCl 100 mg DAILY IV 11/24/24 10:00 11/26/24 12:02 100 MG Folic Acid 1 mg DAILY NG 11/24/24 10:00 11/24/24 10:35 1 MG Atropine Sulfate 1 mg Q4HPRN PRN IV 11/26/24 12:45 Lactulose 30 ml Q8HR PO 11/27/24 14:00 Examination General examination- awake, conversant HEENT- PEERLA, no acute nasal discharge Cardiovascular- S1-S2 audible, rate and rhythm regular, no murmur Respiratory- CTAB, no wheeze or rhonchi Gastrointestinal-nontender, bowel sound+. Abdomen distended + Musculoskeletal-no acute joint swelling or tenderness or redness# Lower extremity- no leg edema Neurological- Skin- no acute rash or purpura laboratory and microbiology Laboratory Tests 11/27/24 04:46 11/26/24 04:56 Test 11/26/24 04:56 Range/Units Serum Glucose 161 H 74-106 mg/dL Microbiology Date/Time Source Procedure Growth Status 11/13/24 04:35 Nose MRSA Screen - Final Complete 11/12/24 03:52 Voided Urine Urine Culture - Final Complete 11/12/24 03:30 Blood Blood Culture - Final NO GROWTH AFTER 5 DAYS OF INCUBATION. Complete 11/12/24 01:20 Peritoneal Fluid Gram Stain - Final Complete 11/12/24 01:20 Peritoneal Fluid Body Fluid Culture - Final Complete Problem List/Assessment/Plan Problem List/Assessment/Plan Assessment-patient is 29 years old male with a history of cirrhosis of liver due to alcoholism/hypertension came with recurrent hospitalization with history of recurrent paracentesis due to melena and ascites was brought into the hospital due to altered mental status and was to found have hepatic encephalopathy with altered mental status. Patient is intubated to maintain his airway due to altered mental status #Neurological -hepatic encephalopathy due to acute on chronic hepatic failure/septic shock -status post mechanical ventilation -patient was extubated on 11/26/2024 -continue current managements -blood culture no growth -MRSA screening negative -urine culture-negative #Cardiovascular Septic shock --History of hypertension -on Levophed -avoid dehydration and hepatology or nephrotoxic medications #Respiratory -Suspected Acute hypoxic respiratory failure. -On mechanical ventilation -respiratory culture -Staphylococcus hemolyticus -blood culture -negative -MRSA screening negative -urine culture-no growth ---respiratory culture -Staphylococcus hemolyticus -blood culture no growth -MRSA screening negative -urine culture preliminary no growth #Gastrointestinal -Acute on chronic decompensated liver failure due to alcoholic cirrhosis of liver -Cirrhosis of liver likely due to alcoholism -Malignant ascites -Suspected spontaneous bacterial peritonitis -constipation -Transaminitis likely due to acute on chronic hepatic failure -Splenomegaly -Cholelithiasis -abdominal hernia --respiratory culture- Staphylococcus hemolyticus -blood culture -negative -MRSA screening negative -urine culture-no growth -continue lactulose as prescribed -plan is to have 2-3 bowel movement per day -continue rifaximin 550 mg via OG tube . b.i.d. -continue lactulose 30 mL q.8 h Continue Ursodol 300 mg b.i.d. #Genitourinary/Renal -alcoholic cirrhosis of the liver, MELD score 26, estimated 3 month mortality 19.6% -spontaneous bacterial peritonitis -suspected hepatorenal syndrome likely due to acute decompensated hepatic failure -ANDRÉS likely due to VMN -mild hyponatremia likely delusional -FOBT Positive, -status post GI consult Avoid dehydration and hepatic or nephrotoxic medications Midodrine 10 mg via G-tube t.i.d. #Infectious -suspected spontaneous bacterial peritonitis -septic shock Continue current management #Hematological -Severe anemia likely due to hepatic failure/hypersplenism -thrombocytopenia likely due to prism/splenic sequestration -monitor CBC, any sign or symptom of bleeding -status post 2 units of packed blood cell blood transfusion #metabolic or endocrine disorder -Lactic acidosis likely due to hepatic failure/septic shock -metabolic acidosis -hyper ammonia -hypocalcemia -hypoalbuminemia #Skin/alimentary -Jaundice likely due to acute on chronic hepatic failure -avoid hepatic or nephrotoxic medication or dehydration Patient was extubated on 11/26/2024 Cartwright's catheter Goals of care/ Code status -DNR ; discussed>15 minutes PUD prophylaxis: SCD DVT prophylaxis: Pantoprazole Plan discussed with Dr. Montano, nursing staff, , father Total critical time spent on patient evaluation, chart review, assessment and plan 67 Minutes Plan discussed with: Patient (BRENT quiñones ), Other (RN) My Orders My Orders Orders - GUSTAVO SANTIZO Procedure Category Date Status Time Cpap/Sed Vacation Med ORDERS 11/26/24 Transmitted Weaning 08:36 Chest Portable XY 11/26/24 Resulted 08:48 Paracentesis US 11/26/24 Resulted Extubate ARACELY 11/26/24 In Process 10:28 Abg W/ Co-Ox RT 11/26/24 Logged 10:00 Atropine Adult Syr PHA 11/26/24 In Process 0.1mg/Ml (Atropine Vargas 12:45 Dietary Evaluation Review Recommendations by RD: Increase Calorie Intake Comments: 1) Increase TF rate to 55 mL/hr goal rate as tolerated. Flush with 50 mL free H2O Q4H Goal rate will provide 1584 kcals, 99g Pro, and 1371 mL free H2O (including flushes) per 24 hrs. Goal rate will meet ~ 97% estimated daily energy needs and ~ 93% estimated daily protein needs 2) Advance to hepatic diet when medically feasible, pending MAKE UP OPERATOR HELPER aproval 3) Continue to monitor I&O, labs, and skin integrity. Goal TF rate will meet increased protein needs r/t cirrhosis, critical illness, and low Antolin score Expected Outcomes/Goals: 1) EN rate to increase to meet at least 75% of patient's estimated needs 2) diet to advance 3) labs and skin integrity to improve 4) f/u in 2-3 days Interpretation of weight loss: >7.5% in 3 months Fluid Accumulation (Severe): Moderate Fluid Retention Protein Calorie Malnutrition: Severe Is there a minimum of two crit: Yes Date of Service: Nov 27, 2024 Billing Provider: DHEERAJ MONTANO MD Common Visit Codes: [id number] CARE 30-74 MIN GUSTAVO SANTIZO Nov 27, 2024 07:31 DHEERAJ MONTANO MD Dec 08, 2024 20:15
[2024-11-27 07:50] LABS: Anion Gap 8 (5-15); Sodium 140 mmol/L (136-145)
[2024-11-27 07:58] LABS: Alanine Aminotransferase 46 U/L (7-40); Albumin 2.5 g/dL (3.2-4.8); Alkaline Phosphatase 124 U/L (46-116); Aspartate Aminotransferase 74 U/L (13-40); Blood Urea Nitrogen 58 mg/dL (9-23); Calcium 8.7 mg/dL (8.7-10.4); Carbon Dioxide 20 mmol/L (20-31); Chloride 112 mmol/L (98-107); Glucose 114 mg/dL (74-106)
[2024-11-27 09:28] LABS: BUN/Creatinine Ratio 30.7 (10.0-20.0)
[2024-11-27 09:30] LABS: Total Protein 5.8 g/dL (5.7-8.2)
[2024-11-27] MEDS: LACTULOSE 20Gm/30ML SOLN PO SCH (15:18)
--- NOTE | 2024-11-27 19:22 | DVHPN2 ---
Progress Note - Dictate Date Seen: Nov 27, 2024 Medical Necessity Reason Pt with a Central, PICC or Fol: Yes The following are medically ne: Central Line, Cartwright Catheter Reason for cartwright catheter: Strict I&O Subjective Patient was extubated yesterday Awake alert today He is tolerating a diet Patient is altered and somewhat confused vital signs Vital Sign Date Time Temp Pulse Resp B/P (MAP) Pulse Ox O2 Delivery O2 Flow Rate FiO2 11/27/24 18:30 100 14 116/75 (89) 99 11/27/24 18:00 Room Air* 0 21 11/27/24 16:00 99.5 99.5 Total Intake and Output 11/26/24 11/26/24 11/27/24 15:00 23:00 07:00 Intake Total 1.875 ml 650 ml Output Total 450 ml 400 ml Balance 1.875 ml -450 ml 250 ml medications Current Medications Medications Dose Ordered Sig/Gretchen Route Start Time Stop Time Status Last Admin Dose Admin Pantoprazole Sodium 40 mg BID IV 11/12/24 10:00 11/27/24 09:10 40 MG Midodrine 10 mg TID@0600,1200,1800 PO 11/13/24 06:00 11/27/24 18:52 10 MG Enteral Nutritional Formula 1,000 ml 30ML/HR GT 11/15/24 11:45 11/25/24 23:09 1,000 ML Ursodiol 300 mg BID PO 11/23/24 22:00 11/27/24 09:09 300 MG Methylprednisolone Sodium Succinate 20 mg BID IV 11/23/24 22:00 11/27/24 09:10 20 MG Thiamine HCl 100 mg DAILY IV 11/24/24 10:00 11/27/24 09:12 100 MG Folic Acid 1 mg DAILY NG 11/24/24 10:00 11/27/24 09:09 1 MG Atropine Sulfate 1 mg Q4HPRN PRN IV 11/26/24 12:45 Lactulose 30 ml Q8HR PO 11/27/24 14:00 11/27/24 15:18 30 ML objective General: Patient is intubated and off sedation Chest: lung santos clear to auscultation Heart: RRR, no murmur Abdomen: Hzbn-fb-epvjqnih-distended, +BS;umbilical hernia Ext no c/c/e laboratory and microbiology Laboratory Tests 11/27/24 04:46 Test 11/27/24 04:46 Range/Units Serum Glucose 114 H 74-106 mg/dL Problems(with codes): (1) Ascites due to alcoholic cirrhosis (2) Anemia, unspecified (3) Thrombocytopenia (4) Cirrhosis (5) Pancytopenia (6) Elevated liver enzymes (7) Splenomegaly (8) Generalized weakness (9) Hepatic encephalopathy (10) Ascites Prognosis Plan Patient is scheduled for a repeat paracentesis tomorrow There is plan for possible discharge to hospice in 24-48 hours Currently I have patient on methylprednisone 20 mg q.12 hours ; I will decrease to q.24 hours Continue Actigall at 300 mg p.o. twice a day Monitor labs; ammonia level is normal Dietary Evaluation Review Recommendations by RD: Increase Calorie Intake Comments: 1) Increase TF rate to 55 mL/hr goal rate as tolerated. Flush with 50 mL free H2O Q4H Goal rate will provide 1584 kcals, 99g Pro, and 1371 mL free H2O (including flushes) per 24 hrs. Goal rate will meet ~ 97% estimated daily energy needs and ~ 93% estimated daily protein needs 2) Advance to hepatic diet when medically feasible, pending RN TRANSPORT aproval 3) Continue to monitor I&O, labs, and skin integrity. Goal TF rate will meet increased protein needs r/t cirrhosis, critical illness, and low Antolin score Expected Outcomes/Goals: 1) EN rate to increase to meet at least 75% of patient's estimated needs 2) diet to advance 3) labs and skin integrity to improve 4) f/u in 2-3 days Interpretation of weight loss: >7.5% in 3 months Fluid Accumulation (Severe): Moderate Fluid Retention Protein Calorie Malnutrition: Severe Is there a minimum of two crit: Yes Plan discussed with: Other (ANNIE Nurse and DR Pena) KATELYN JOYCE MD Nov 27, 2024 19:21
[2024-11-28] VITALS (58 sets, daily range): BP systolic 106–137; BP diastolic 74–89; PULSE 94–113; RESP 9–24; TEMP 98.4–99.9; O2SAT 98–100
[2024-11-28 05:08] LABS: Basophils # (auto) 0 10 ^3/uL (0-0.2); Basophils % (auto) 0.2 % (0.0-2.0); Eosinophils # (auto) 0 10 ^3/uL (0-0.8); Hematocrit 28.7 % (41.0-53.0); Hemoglobin 9.7 g/dL (13.5-17.5); Lymphocytes # (auto) 0.4 10 ^3/uL (0.4-5.4); Lymphocytes % (auto) 4.2 % (10.0-50.0); Mean Corpuscular Hemoglobin 30.2 pg (28.0-32.0); Mean Corpuscular Hgb Conc. 33.7 g/dL (32.0-36.0); Mean Corpuscular Volume 89.7 fL (80.0-100.0); Monocytes # (auto) 0.8 10 ^3/uL (0-1.3); Monocytes % (auto) 8.6 % (0.0-12.0); Neutrophils # (auto) 8.4 10 ^3/uL (1.6-8.6); Nucleated Red Blood Cells % 0.1 %; Platelet Count (auto) 82 10^3/uL (140-450); Red Blood Cells 3.19 10^6/uL (4.5-5.90); Red Cell Distribution Width 25.8 % (11.8-14.3); White Blood Cell 9.7 10^3/uL (4.4-10.8)
[2024-11-28 05:23] LABS: INR 1.94 (0.9-1.15); Prothrombin Time 19.3 sec (9.3-11.8)
[2024-11-28 05:29] LABS: Alanine Aminotransferase 62 U/L (7-40); Albumin 2.6 g/dL (3.2-4.8); Alkaline Phosphatase 125 U/L (46-116); Anion Gap 9 (5-15); Aspartate Aminotransferase 96 U/L (13-40); Blood Urea Nitrogen 55 mg/dL (9-23); Calcium 8.7 mg/dL (8.7-10.4); Carbon Dioxide 20 mmol/L (20-31); Chloride 115 mmol/L (98-107); Glucose 121 mg/dL (74-106); Magnesium 3.2 mg/dL (1.6-2.6); Potassium 4.3 mmol/L (3.5-5.1); Sodium 144 mmol/L (136-145)
[2024-11-28 05:32] LABS: Bilirubin, Total 14.8 mg/dL (0.2-1.0)
[2024-11-28 06:02] LABS: Anisocytosis Moderate; Platelet Estimate Decreased; Target Cell FEW
--- NOTE | 2024-11-28 06:29 | DVHPNRES ---
Progress Note Date Seen: Nov 28, 2024 Resident Creating Document: GUSTAVO SANTIZO Medical Necessity Reason Pt with a Central, PICC or Fol: Yes The following are medically ne: Central Line, Cartwright Catheter Reason for cartwright catheter: Strict I&O Subjective Review of Systems HPI-Patient is 29 years old male with past medical history of cirrhosis of liver due to alcoholism, hypertension, history of recurrent hospitalization, history of recurrent paracentesis due to malignant ascites was admitted to the hospital due to altered mental status. Patient was brought in by the family due to altered mental status for last 5 days which was getting worse lately. Father patient had some vomiting but no blood. Patient's abdominal of the getting bigger as per father. Patient was recently discharged from [facility] on 11/06/2024. On arrival patient was on altered mental status with suspected metabolic encephalopathy. Patient was intubated to maintain his airway. Initial lab workup revealed WBC 4.9, hemoglobin 8.8, platelet 97, sodium 132, potassium 5.2, normal anion gap 7 BUN 37, serum creatinine 1.68, limit lactic acidosis with lactic acid 3.1> 3.9> 4.2, calcium 8.4, magnesium 2.2, serum bilirubin 4.1, AST 98, ALT 48, alkaline phosphatase 165, ammonia 152, albumin 2.3, analysis not significant for UTI, INR 1.59, CXR no acute cardiopulmonary disease. 11/12/2024 Patient had paracentesis of 4.5 L of fluid early in the morning. Central line was placed in the right internal jugular vein.Patient had today on 11/16/2024 and 6.5 L fluid was removed Patient was recently hospitalized intubated on 10/25/2024 and extubated on 11/01/2024. S/p paracentesis on 10/28/24 - 2.1 liters of ascitic fluid were drained. See separate procedure note for details. S/p 5.2 L paracentesis done on 11/05/2024 Ascitic fluid cultures grew Staph epidermidis E coli septicemia On 10/25/2024 blood culture revealed E coli- sensitive to Levaquin On 10/26/2024 body fluid grew Staphylococcus epidermidis-sensitive to Levaquin CT SCAN -on 10/25/2024 revealed cirrhosis of liver, splenomegaly, cholelithiasis. Patient had paracentesis on 10/21/2024, 10/15/2024, 02/01/25, 11/05/24- Patient was seen today for clinical evaluation. Labs and chart reviewed. Patient was extubated on 11/26/2024 Ordered for paracentesis tomorrow on 11/28/24 before discharge IR consult in place Overnight patient's BP ranging from -102-125/72-82,, pulse 95-109,, temperature 97.4-100.7 I/O- intake 200, output 400, negative balance 200 Lab workup revealed Patient with pancytopenia Leukopenia WBC 4.9>> 5.7 >2.8> 02.1> 2.3> 2.0> 2.4> 3.3> 4.6> 4.4> 3.3> 3.9> 5.4> 10.6> 9.7 hemoglobin 8.8> 8.1,> 5.7> 7.3> 7.6> 8.1> 8.2> 8.8> 8.2> 7.4> 7.8> 8.3> 8.5> 9.3> 9.7 thrombocytopenia with platelet 97> 98> 50> 42> 45> 46> 42> 44> 48> 38> 36> 44> 42> 73> 82 Sodium 132 >132> 137> 138> 139>> 139> 140> 140> 141> 1.41> 142> 139> 140> 140> 140 Potassium > 5.2 5.4> 4.8> 4.2> 4.3> 4.2 > 4.1> 4.1> 4.1> 4.2> 3.8> 3.9> 4.0> 4.2> 4.2> 4.3 Serum creatinine 1.68> 1.73> 1.35> 0.81> 0.64> 0.75> 1.25> 1.88> 2.10> 1.61> 1.56> 2.19> 1.89> 1.57 BUN 37> 38> 34> 19> 17> 11> 13> 18> 27> 30> 28> 31> 53>45> 53> 55 Lactic Acidosis resolved 3.1> 3.9> 4.2?> 3.4> 1.7> 1.8>> 2.19 INR 1.59> 1.70> 1.71> 1.76> 1.78> 1.89> 1.83> 1.88> 1.8>1.79> 1.94 Ammonia 152> 141>45> 52> 46> 39> 48> 45> 45> 65> 19> 10 transaminitis with serum total bilirubin 4.1> 4.1> 5.5> 8.5> 8.6> 7.6> 7.4> 8.4> 9.1> 9.6> 10.6> 11.0> 13.1> 12.3> 14.8 AST-98>79> 58> 52> 57> 60> 84> 88> 84> 76>70> >83> 74> 96 AST> 43> 38> 28> 62> 29> 23> 28> 29 > 29> 29> 28>> 32 36> 41> 62 provider spoke to patient's father Morris, , discussed patient's current medical condition, plan of care and answered his question Objective vital signs Vital Sign Date Time Temp Pulse Resp B/P (MAP) Pulse Ox O2 Delivery O2 Flow Rate FiO2 11/28/24 06:00 105 11 125/82 (96) 100 11/28/24 04:00 99.9 99.9 11/28/24 04:00 Room Air* 0 21 Total Intake and Output 11/27/24 11/27/24 11/28/24 15:00 23:00 07:00 Intake Total 200 ml Output Total 400 ml Balance -200 ml medications Current Medications Medications Dose Ordered Sig/Gretchen Route Start Time Stop Time Status Last Admin Dose Admin Pantoprazole Sodium 40 mg BID IV 11/12/24 10:00 11/27/24 09:10 40 MG Midodrine 10 mg TID@0600,1200,1800 PO 11/13/24 06:00 11/27/24 18:52 10 MG Enteral Nutritional Formula 1,000 ml 30ML/HR GT 11/15/24 11:45 11/25/24 23:09 1,000 ML Ursodiol 300 mg BID PO 11/23/24 22:00 11/27/24 09:09 300 MG Thiamine HCl 100 mg DAILY IV 11/24/24 10:00 11/27/24 09:12 100 MG Folic Acid 1 mg DAILY NG 11/24/24 10:00 11/27/24 09:09 1 MG Atropine Sulfate 1 mg Q4HPRN PRN IV 11/26/24 12:45 Lactulose 30 ml Q8HR PO 11/27/24 14:00 11/27/24 15:18 30 ML Methylprednisolone Sodium Succinate 20 mg DAILY IV 11/28/24 10:00 Examination General examination- awake, conversant HEENT- PEERLA, no acute nasal discharge Cardiovascular- S1-S2 audible, rate and rhythm regular, no murmur Respiratory- CTAB, no wheeze or rhonchi Gastrointestinal-nontender, bowel sound+. Abdomen distended + Musculoskeletal-no acute joint swelling or tenderness or redness# Lower extremity- no leg edema Neurological- Skin- no acute rash or purpura laboratory and microbiology Laboratory Tests 11/28/24 04:56 Test 11/28/24 04:56 Range/Units Serum Glucose 121 H 74-106 mg/dL Microbiology Date/Time Source Procedure Growth Status 11/13/24 04:35 Nose MRSA Screen - Final Complete 11/12/24 03:52 Voided Urine Urine Culture - Final Complete 11/12/24 03:30 Blood Blood Culture - Final NO GROWTH AFTER 5 DAYS OF INCUBATION. Complete 11/12/24 01:20 Peritoneal Fluid Gram Stain - Final Complete 11/12/24 01:20 Peritoneal Fluid Body Fluid Culture - Final Complete Problem List/Assessment/Plan Problem List/Assessment/Plan Assessment-patient is 29 years old male with a history of cirrhosis of liver due to alcoholism/hypertension came with recurrent hospitalization with history of recurrent paracentesis due to melena and ascites was brought into the hospital due to altered mental status and was to found have hepatic encephalopathy with altered mental status. Patient is intubated to maintain his airway due to altered mental status #Neurological -hepatic encephalopathy due to acute on chronic hepatic failure/septic shock -status post mechanical ventilation -patient was extubated on 11/26/2024 -continue current managements -blood culture no growth -MRSA screening negative -urine culture-negative #Cardiovascular Septic shock --History of hypertension -on Levophed -avoid dehydration and hepatology or nephrotoxic medications #Respiratory -Suspected Acute hypoxic respiratory failure. -On mechanical ventilation -respiratory culture -Staphylococcus hemolyticus -blood culture -negative -MRSA screening negative -urine culture-no growth ---respiratory culture -Staphylococcus hemolyticus -blood culture no growth -MRSA screening negative -urine culture preliminary no growth #Gastrointestinal -Acute on chronic decompensated liver failure due to alcoholic cirrhosis of liver -Cirrhosis of liver likely due to alcoholism -Malignant ascites -Suspected spontaneous bacterial peritonitis -constipation -Transaminitis likely due to acute on chronic hepatic failure -Splenomegaly -Cholelithiasis -abdominal hernia --respiratory culture- Staphylococcus hemolyticus -blood culture -negative -MRSA screening negative -urine culture-no growth -continue lactulose as prescribed -plan is to have 2-3 bowel movement per day -continue rifaximin 550 mg via OG tube . b.i.d. -continue lactulose 30 mL q.8 h Continue Ursodol 300 mg b.i.d. #Genitourinary/Renal -alcoholic cirrhosis of the liver, MELD score 26, estimated 3 month mortality 19.6% -spontaneous bacterial peritonitis -suspected hepatorenal syndrome likely due to acute decompensated hepatic failure -ANDRÉS likely due to VMN -mild hyponatremia likely delusional -FOBT Positive, -status post GI consult Avoid dehydration and hepatic or nephrotoxic medications Midodrine 10 mg via G-tube t.i.d. #Infectious -suspected spontaneous bacterial peritonitis -septic shock Continue current management #Hematological -Severe anemia likely due to hepatic failure/hypersplenism -thrombocytopenia likely due to prism/splenic sequestration -monitor CBC, any sign or symptom of bleeding -status post 2 units of packed blood cell blood transfusion #metabolic or endocrine disorder -Lactic acidosis likely due to hepatic failure/septic shock -metabolic acidosis -hyper ammonia -hypocalcemia -hypoalbuminemia #Skin/alimentary -Jaundice likely due to acute on chronic hepatic failure -avoid hepatic or nephrotoxic medication or dehydration Patient was extubated on 11/26/2024 Cartwright's catheter Goals of care/ Code status -DNR ; discussed>15 minutes PUD prophylaxis: SCD DVT prophylaxis: Pantoprazole Plan discussed with Dr. Zabala, nursing staff, , father Total critical time spent on patient evaluation, chart review, assessment and plan 67 Minutes My Orders My Orders Orders - GUSTAVO SANTIZO RESIDENT Procedure Category Date Status Time * Radiologist Consult CONS 11/28/24 Transmitted 08:30 Dietary Evaluation Review Recommendations by RD: Increase Calorie Intake Comments: 1) Increase TF rate to 55 mL/hr goal rate as tolerated. Flush with 50 mL free H2O Q4H Goal rate will provide 1584 kcals, 99g Pro, and 1371 mL free H2O (including flushes) per 24 hrs. Goal rate will meet ~ 97% estimated daily energy needs and ~ 93% estimated daily protein needs 2) Advance to hepatic diet when medically feasible, pending WOOD ENGRAVER aproval 3) Continue to monitor I&O, labs, and skin integrity. Goal TF rate will meet increased protein needs r/t cirrhosis, critical illness, and low Antolin score Expected Outcomes/Goals: 1) EN rate to increase to meet at least 75% of patient's estimated needs 2) diet to advance 3) labs and skin integrity to improve 4) f/u in 2-3 days Interpretation of weight loss: >7.5% in 3 months Fluid Accumulation (Severe): Moderate Fluid Retention Protein Calorie Malnutrition: Severe Is there a minimum of two crit: Yes GUSTAVO SANTIZO RESIDENT Nov 28, 2024 06:29
[2024-11-28] MEDS: FUROSEMIDE 20 MG/2 ML VIAL IV ONE (06:55)
--- NOTE | 2024-11-28 10:28 | DVH ---
US ABDOMEN LIMITED, HISTORY: FLUID CHECK FOR POSSIBLE PARACENTESIS COMPARISON(S): None TECHNICAL DATA: Transverse and longitudinal images are obtained of the chest. FINDING: IMPRESSION(S): Mild ascites.
--- NOTE | 2024-11-28 10:41 | DVHDSRES ---
Discharge Summary Date of Admission Resident Creating Document: GUSTAVO SANTIZO RESIDENT Nov 12, 2024 at 03:09 Date of Discharge: Nov 28, 2024 Admitting Diagnosis Acute metabolic /hepatic encephalopathy Labs/Diagnostic Data: Laboratory Results Test 11/28/24 04:56 11/26/24 10:07 11/26/24 07:25 11/26/24 06:45 White Blood Count 9.7 10^3/uL (4.4-10.8) Red Blood Count 3.19 10^6/uL (4.5-5.90) Hemoglobin 9.7 g/dL (13.5-17.5) Hematocrit 28.7 % (41.0-53.0) Mean Corpuscular Volume 89.7 fL (80.0-100.0) Mean Corpuscular Hemoglobin 30.2 pg (28.0-32.0) Mean Corpuscular Hemoglobin Concent 33.7 g/dL (32.0-36.0) Red Cell Distribution Width 25.8 % (11.8-14.3) Platelet Count 82 10^3/uL (140-450) Mean Platelet Volume 8.3 fL (6.9-10.8) Neutrophils (%) (Auto) 87.0 % (37.0-80.0) Lymphocytes (%) (Auto) 4.2 % (10.0-50.0) Monocytes (%) (Auto) 8.6 % (0.0-12.0) Eosinophils (%) (Auto) 0.0 % (0.0-7.0) Basophils (%) (Auto) 0.2 % (0.0-2.0) Neutrophils # (Auto) 8.4 10 ^3/uL (1.6-8.6) Lymphocytes # (Auto) 0.4 10 ^3/uL (0.4-5.4) Monocytes # (Auto) 0.8 10 ^3/uL (0-1.3) Eosinophils # (Auto) 0 10 ^3/uL (0-0.8) Basophils # (Auto) 0 10 ^3/uL (0-0.2) Nucleated Red Blood Cells 0.1 % Platelet Estimate Decreased Poikilocytosis (manual) Slight Anisocytosis (manual) Moderate Target Cells Few Teresa Cells Moderate Schistocytes Few Prothrombin Time 19.3 sec (9.3-11.8) Prothrombin Time INR 1.94 (0.9-1.15) Sodium Level 144 mmol/L (136-145) Potassium Level 4.3 mmol/L (3.5-5.1) Chloride Level 115 mmol/L (98-107) Carbon Dioxide Level 20 mmol/L (20-31) Anion Gap 9 (5-15) Blood Urea Nitrogen 55 mg/dL (9-23) Creatinine 1.57 mg/dL (0.700-1.30) Glomerular Filtration Rate Calc 60 mL/min (>90) BUN/Creatinine Ratio 35.0 (10.0-20.0) Serum Glucose 121 mg/dL (74-106) Calcium Level 8.7 mg/dL (8.7-10.4) Magnesium Level 3.2 mg/dL (1.6-2.6) Total Bilirubin 14.8 mg/dL (0.2-1.0) Aspartate Amino Transferase (AST) 96 U/L (13-40) Alanine Aminotransferase (ALT) 62 U/L (7-40) Alkaline Phosphatase 125 U/L (46-116) Ammonia < 10 umol/L (11-32) Total Protein 6.0 g/dL (5.7-8.2) Albumin 2.6 g/dL (3.2-4.8) Blood Gas Specimen Type Arterial Blood Gas Sample Site Right brachial Blood Gas Patient Temperature 37.0 Arterial Blood Date Drawn [id number] Arterial Blood pH 7.410 (7.350-7.450) Arterial Blood Partial Pressure CO2 30.6 mmHg (35.0-48.0) Arterial Blood Partial Pressure O2 75.2 mmHg (83.0-108.0) Arterial Blood HCO3 19.0 mmol/L (21.0-28.0) Arterial Blood Oxygen Saturation 92.9 % (94.0-98.0) Arterial Blood Base Excess -4.9 mmol/L (-2.0-3.0) Arterial Blood Oxyhemoglobin 91.8 % (94.0-98.0) Arterial Blood Carboxyhemoglobin 0.6 % (0.5-1.5) Arterial Blood Methemoglobin 0.6 % (0.0-1.5) John Test Modified Blood Gas Total Hemoglobin 9.30 g/dL (13.5-17.5) Blood Gas Modality Vent - cpap FiO2 % 30.0 Blood Gas Pressure Support 8 Blood Gas PEEP or CPAP 5.0 Blood Gas Set Respiration Rate 18.0 Blood Gas Tidal Volume 450.0 Urine Color Dark-orange (Yellow) Urine Clarity Ex.turbid (Clear) Urine pH 5.5 (5.0-9.0) Urine Specific [place] 1.026 (1.001-1.035) Urine Protein 2+ (Negative) Urine Ketones Negative (Negative) Urine Blood 2+ /uL (Negative) Urine Nitrite Negative (Negative) Urine Bilirubin Negative (Negative) Urine Urobilinogen 2 mg/dL (Negative) Urine Leukocyte Esterase Negative /uL (Negative) Urine RBC 82 /hpf (0 - 3) Urine Microscopic WBC 62 /HPF (0-3) Urine Squamous Epithelial Cells Few /hpf (<5) Urine Amorphous Crystals Few /hpf (None Seen) Urine Bacteria Few /hpf (None Seen) Urine Mucus Few (None Seen) Urine Glucose Trace mg/dL (Normal) Test 11/26/24 04:56 11/24/24 05:32 11/21/24 07:19 11/20/24 05:08 Ovalocytes Few Stomatocytes Blood Gas Critical Value Read Back Yes Blood Gas Notified Whom bethanie Golden Blood Gas Notified Time [id number] Blood Gas Notified By Dock Builder kelechi sage Clumped Platelets Few Test 11/19/24 16:00 11/19/24 04:47 11/18/24 23:33 11/18/24 11:00 Stool Occult Blood Positive (Negative) Stool Occult Blood Sample #3 (Negative) Random Vancomycin Level 14.1 ug/mL (5-10) POC Glucose 105 mg/dl (70-106) Vancomycin Level Trough 29.1 ug/mL (5-10) Test 11/17/24 02:52 11/15/24 03:15 11/14/24 04:48 11/13/24 07:11 Large Platelets Few Lactic Acid Level 1.8 mmol/L (0.4-2.0) Thyroid Stimulating Hormone (TSH) 1.10 uIU/mL (0.55-4.78) Specimen Drawn By Pati olsen water control station engineer Test 11/12/24 06:24 11/12/24 05:18 11/12/24 05:16 11/12/24 03:52 Blood Gas Spontaneous Rate 28 Direct Bilirubin 3.1 mg/dL (<0.3) Activated Partial Thromboplast Time 41.9 SEC (24.5-34.5) Urine Hyaline Casts Many /lpf (0 - 2) Urine Opiates Screen Pos (NEGATIVE) Urine Fentanyl Screen Neg (NEGATIVE) Urine Barbiturates Screen Neg (NEGATIVE) Urine Phencyclidine Screen Neg (NEGATIVE) Urine Amphetamines Screen Neg (NEGATIVE) Urine Benzodiazepines Screen Pos (NEGATIVE) Urine Cocaine Screen Neg (NEGATIVE) Urine Cannabinoids Screen Neg (NEGATIVE) Test 11/12/24 03:15 11/12/24 01:20 11/11/24 21:45 Hypochromasia (manual) Slight Body Fluid Glucose 125 mg/dL (.) Body Fluid Albumin <0.2 g/dL (Not Estab.) Body Fluid Lactate Dehydrogenase 23 IU/L (.) Tear Drop Cells Few Other Laboratory Tests 11/28/24 04:56 Brief Hx & Hospital Course: HPI-Patient is 29 years old male with past medical history of cirrhosis of liver due to alcoholism, hypertension, history of recurrent hospitalization, history of recurrent paracentesis due to malignant ascites was admitted to the hospital due to altered mental status. Patient was brought in by the family due to altered mental status for last 5 days which was getting worse lately. Father patient had some vomiting but no blood. Patient's abdominal of the getting bigger as per father. Patient was recently discharged from [facility] on 11/06/2024. On arrival patient was on altered mental status with suspected metabolic encephalopathy. Patient was intubated to maintain his airway. Initial lab workup revealed WBC 4.9, hemoglobin 8.8, platelet 97, sodium 132, potassium 5.2, normal anion gap 7 BUN 37, serum creatinine 1.68, limit lactic acidosis with lactic acid 3.1> 3.9> 4.2, calcium 8.4, magnesium 2.2, serum bilirubin 4.1, AST 98, ALT 48, alkaline phosphatase 165, ammonia 152, albumin 2.3, analysis not significant for UTI, INR 1.59, CXR no acute cardiopulmonary disease. Patient was intubated due to altered mental status and 2 parts away.Patient was extubated on 11/26/2024. Patient had blood transfusion due to severe anemia. Patient also had several episodes of paracentesis due to malignant ascites. Patient is being discharged home with the home hospice. Patient's meds were sent to the pharmacy electronically. Patient was hemodynamically stable on discharge. Patient was seen today for clinical evaluation. Labs and chart reviewed. Ordered for paracentesis tomorrow on 11/28/24 before discharge Operations or Procedures [place] [address] Ph: [phone] DIAGNOSTIC IMAGING Diagnostic Imaging Report : [id number] Signed PATIENT: JONAH KAPLAN ACCT: [id number] UNIT: [id number] : 1995 LOC: ER ROOM / BED: / AGE / SEX: 29 / M ADM STATUS: REG ER SERVICE 19 ORDERING PHYSICIAN: GINNY PEREZ MD PROCEDURE(s): CXRP - CHEST PORTABLE REASON: ams ORDER NUMBER(s): [id number], ACCESSION NUMBER(s): [id number] CHEST RADIOGRAPH Indication: ams Technique: Single frontal view of the chest was obtained COMPARISON: XY CHEST PORTABLE on DOS: 11/02/24, XY CHEST PORTABLE on DOS: 11/01/24, XY CHEST PORTABLE on DOS: 10/31/24, XY CHEST XRAY 1 VIEW on DOS: 10/30/24, XY CHEST PORTABLE on DOS: 10/29/24 FINDINGS: Lines and Tubes: None Lungs: Lung volumes are low. No abnormality demonstrated. Pleura: No effusion.No pneumothorax. Cardiomediastinal contours: Unremarkable IMPRESSION: Low lung volumes. No abnormality demonstrated. ATED BY: CHINO CUNHA MD DICTATED DATE/TIME: 11/11/242221 SIGNED BY: CHINO CUNHA MD SIGNED DATE/TIME: 11/11/242221 CC: [place] [address] Ph: [phone] DIAGNOSTIC IMAGING Diagnostic Imaging Report : [id number] Signed PATIENT: JONAH KAPLAN ACCT: [id number] UNIT: [id number] : 1995 LOC: ICU CENTRL ROOM / BED: 0266 / A AGE / SEX: 29 / M ADM STATUS: ADM IN SERVICE 0703 ORDERING PHYSICIAN: BABU,MOHAMMED RESIDENT PROCEDURE(s): KUB - KUB ABDOMEN SINGLE VIEW REASON: ???SBO ORDER NUMBER(s): [id number], ACCESSION NUMBER(s): [id number] Date: 11/14/2024 07:40 AM Examination: XY KUB ABDOMEN SINGLE VIEW History: pain Comparison: None TECHNIQUE: Frontal views of the abdomen was obtained. FINDINGS: Bowel gas pattern is unremarkable. Enteric tube projects over the expected region of the stomach. Lung bases are collimated from field of view. No acute osseous abnormality identified. Catheter projects over the pelvis. IMPRESSION: Nonobstructive bowel gas pattern. Enteric tube in appropriate position. ATED BY: CARLOS MOHAN MD DICTATED DATE/TIME: 11/14/24 0832 SIGNED BY: CARLOS MOHAN MD SIGNED DATE/TIME: 11/14/24 0832 CC: [place] [address] Ph: [phone] DIAGNOSTIC IMAGING Diagnostic Imaging Report : [id number] Signed PATIENT: JONAH KAPLAN ACCT: [id number] UNIT: [id number] : 1995 LOC: ICU CENTR ROOM / BED: [facility] / A AGE / SEX: 29 / M ADM STATUS: ADM IN SERVICE 1114 ORDERING PHYSICIAN: BRYCE CURIEL MD PROCEDURE(s): ABDL - ABDOMEN LIMITED REASON: FLUID CHECK FOR POSSIBLE PARACENTESIS ORDER NUMBER(s): [id number], ACCESSION NUMBER(s): [id number] ULTRASOUND ABDOMEN limited, 4 QUADRANTS INDICATION: FLUID CHECK FOR POSSIBLE PARACENTESIS Evaluate for ascites. TECHNIQUE: The four quadrants of the abdomen were scanned in benites-scale to assess for the presence of ascites. No solid organ assessment was performed. FINDINGS/IMPRESSIONS: Small volume ascites is visualized in all 4 quadrants of the abdomen. ATED BY: CHERRY GAVIN MD DICTATED DATE/TIME: 11/14/24 1140 SIGNED BY: CHERRY GAVIN MD SIGNED DATE/TIME: 11/14/24 1140 CC: [address] [address] Ph: [phone] DIAGNOSTIC IMAGING Diagnostic Imaging Report : [id number] Signed PATIENT: JONAH KAPLAN ACCT: [id number] UNIT: [id number] : 1995 LOC: ICU CENTRL ROOM / BED: [address] [place] [address] AGE / SEX: 29 / M ADM STATUS: ADM IN SERVICE 0745 ORDERING PHYSICIAN: GUSTAVO SANTIZO PROCEDURE(s): PARAC - PARACENTESIS REASON: ASCITES ORDER NUMBER(s): [id number], ACCESSION NUMBER(s): [id number] US PARACENTESIS, HISTORY: ASCITES PROCEDURE: Informed consent was obtained. The patient was placed in supine position. A limited localization ultrasound of the abdomen was obtained, and the skin site over the largest pocket of fluid was marked and entry site was prepped with chlorhexidine which was allowed to dry and draped in the usual sterile fashion. Time out was performed. Following administration of 1% lidocaine local anesthetic, a 5 Gambian centesis needle catheter was percutaneously inserted into the peritoneal collection until fluid was aspirated. The catheter was advanced into the fluid collection and the needle removed. About 6500 cc of fluid was aspirated . The catheter was then removed and a sterile dressing applied. . No immediate complication was identified. FINDINGS: Limited ultrasound imaging demonstrates moderate ascites. Aspirated fluid was clear and serous. IMPRESSION: US-guided paracentesis with 6.5L removed. ATED BY: MAURICE GREENFIELD MD DICTATED DATE/TIME: 11/16/24 1232 SIGNED BY: MAURICE GREENFIELD MD SIGNED DATE/TIME: 11/16/24 1232 CC: [address] [address] Ph: [phone] DIAGNOSTIC IMAGING Diagnostic Imaging Report : [id number] Signed PATIENT: JONAH KAPLAN ACCT: [id number] UNIT: [id number] : 1995 LOC: ICU CENTRL ROOM / BED: [facility] / A AGE / SEX: 29 / M ADM STATUS: ADM IN SERVICE 0400 ORDERING PHYSICIAN: GUSTAVO SANTIZO PROCEDURE(s): CXRP - CHEST PORTABLE REASON: ?PNA ORDER NUMBER(s): [id number], ACCESSION NUMBER(s): [id number] EXAM: XR Chest, 1 View CLINICAL INDICATION: PNA TECHNIQUE: Frontal view of the chest. COMPARISON: XY CHEST PORTABLE on DOS: 11/18/24, XY CHEST PORTABLE on DOS: 11/17/24, XY CHEST PORTABLE on DOS: 11/16/24, XY CHEST PORTABLE on DOS: 11/15/24, XY CHEST PORTABLE on DOS: 11/14/24 FINDINGS: LUNGS AND PLEURAL SPACES: Pulmonary venous congestion. No consolidation. No pneumothorax. HEART: Unremarkable. No cardiomegaly. MEDIASTINUM: Unremarkable. Normal mediastinal contour. BONES/JOINTS: Unremarkable. No acute fracture. TUBES, LINES AND DEVICES: Right internal jugular central venous catheter tip in the superior vena cava. The endotracheal tube (ETT) is in satisfactory position. Enteric tube tip in the stomach. OTHER FINDINGS: . . . IMPRESSION: Pulmonary venous congestion. ATED BY: AUBREY ROBERT MD DICTATED DATE/TIME: 11/20/24601 SIGNED BY: AUBREY ROBERT MD SIGNED DATE/TIME: 11/20/24601 CC: [place] [address] Ph: [phone] DIAGNOSTIC IMAGING Diagnostic Imaging Report : [id number] Signed PATIENT: JONAH KAPLAN ACCT: [id number] UNIT: [id number] : 1995 LOC: ICU CENTR ROOM / BED: [facility] A AGE / SEX: 29 / M ADM STATUS: ADM IN SERVICE 0903 ORDERING PHYSICIAN: GUSTAVO SANTIZO PROCEDURE(s): ABDL - ABDOMEN LIMITED REASON: FLUID CHECK ORDER NUMBER(s): [id number], ACCESSION NUMBER(s): [id number] ULTRASOUND ABDOMEN LIMITED INDICATION: FLUID CHECK TECHNIQUE: Ultrasound of the 4 quadrants of the abdominal cavity. COMPARISON: US ABDOMEN LIMITED on DOS: 11/14/24, US ABDOMEN LIMITED on DOS: 11/05/24 FINDINGS: There is small volume of ascites seen in all 4 quadrants of the abdomen. IMPRESSION: 1. Small volume of ascites seen in all 4 quadrants of the abdomen. HS:Y ATED BY: LUIS LENNON MD DICTATED DATE/TIME: 11/20/24 1052 SIGNED BY: LUIS LENNON MD SIGNED DATE/TIME: 11/20/24 105 CC: [place] [address] Ph: [phone] DIAGNOSTIC IMAGING Diagnostic Imaging Report : [id number] Signed PATIENT: JONAH KAPLAN ACCT: [id number] UNIT: [id number] : 1995 LOC: ICU CENTRL ROOM / BED: [facility] / A AGE / SEX: 29 / M ADM STATUS: ADM IN SERVICE 1434 ORDERING PHYSICIAN: GUSTAVO SANTIZO PROCEDURE(s): ABDL - ABDOMEN LIMITED REASON: FLUID CHECK FOR POSSIBLE PARACENTESIS ORDER NUMBER(s): [id number], ACCESSION NUMBER(s): [id number] ULTRASOUND ABDOMEN limited, 4 QUADRANTS INDICATION: FLUID CHECK FOR POSSIBLE PARACENTESIS Evaluate for ascites. TECHNIQUE: The four quadrants of the abdomen were scanned in benites-scale to assess for the presence of ascites. No solid organ assessment was performed. FINDINGS: small to moderate ascites IMPRESSIONS: 1. small to moderate ascites ATED BY: MAYANK YE MD DICTATED DATE/TIME: 11/23/24 1610 SIGNED BY: MAYANK YE MD SIGNED DATE/TIME: 11/23/24 161 CC: [place] [address] Ph: [phone] DIAGNOSTIC IMAGING Diagnostic Imaging Report : [id number] Signed PATIENT: JONAH KAPLAN ACCT: [id number] UNIT: [id number] : 1995 LOC: ICU CENTRL ROOM / BED: [facility] / A AGE / SEX: 29 / M ADM STATUS: ADM IN SERVICE 1134 ORDERING PHYSICIAN: GUSTAVO SANTIZO PROCEDURE(s): PARAC - PARACENTESIS REASON: ASCITES ORDER NUMBER(s): [id number], ACCESSION NUMBER(s): [id number] PROCEDURE: ULTRASOUND GUIDED PARACENTESIS HISTORY: 29 Male requiring paracentesis. TECHNIQUE: The risks and benefits of the procedure including but not limited to bleeding, infection and injury to abdominal organs were explained to the patient and written informed consent was obtained. Optimal site for puncture was determined using ultrasound and the area sterilized and draped. Using a 5 [place] [employer] catheter, paracentesis was performed in the left lower abdomen. Approximately 8 liters of starw colored fluid was removed. The patient tolerated the procedure well. There were no immediate complications. IMPRESSION: Ultrasound-guided paracentesis with no immediate complications. ATED BY: MAYANK YE MD DICTATED DATE/TIME: 11/22/24 141 SIGNED BY: MAYANK YE MD SIGNED DATE/TIME: 11/22/24 141 CC: [place] [address] Ph: [phone] DIAGNOSTIC IMAGING Diagnostic Imaging Report : [id number] Signed PATIENT: JONAH KAPLAN ACCT: [id number] UNIT: [id number] : 1995 LOC: ICU CENTR ROOM / BED: [facility] / A AGE / SEX: 29 / M ADM STATUS: ADM IN SERVICE 0000 ORDERING PHYSICIAN: GUSTAVO SANTIZO RESIDENT PROCEDURE(s): PARAC - PARACENTESIS REASON: ASCITES ORDER NUMBER(s): [id number], ACCESSION NUMBER(s): [id number] US PARACENTESIS, HISTORY: ASCITES PROCEDURE: Informed consent was obtained. The patient was placed in supine position. A limited localization ultrasound of the abdomen was obtained, and the skin site over the largest pocket of fluid was marked and entry site was prepped with chlorhexidine which was allowed to dry and draped in the usual sterile fashion. Time out was performed. Following administration of 1% lidocaine local anesthetic, a 5 [place]ian centesis needle catheter was percutaneously inserted into the peritoneal collection until fluid was aspirated. The catheter was advanced into the fluid collection and the needle removed. About 6000 cc of fluid was aspirated and specimen sent for appropriate cultures/cytology/cultures and cytology. The catheter was then removed and a sterile dressing applied. No immediate complication was identified. FINDINGS: Limited ultrasound imaging demonstrates moderate ascites. Aspirated fluid was clear and serous. IMPRESSION: US-guided paracentesis with 6L removed. ATED BY: MAURICE GREENFIELD MD DICTATED DATE/TIME: 11/26/24 1008 SIGNED BY: MAURICE GREENFIELD MD SIGNED DATE/TIME: 11/26/24 1008 CC: [place] [address] Ph: [phone] DIAGNOSTIC IMAGING Diagnostic Imaging Report : [id number] Signed PATIENT: JONAH KAPLAN ACCT: [id number] UNIT: [id number] : 1995 LOC: ICU CENTRL ROOM / BED: [address] [place] [address] AGE / SEX: 29 / M ADM STATUS: ADM IN SERVICE 0958 ORDERING PHYSICIAN: MAURICE GREENFIELD MD PROCEDURE(s): ABDL - ABDOMEN LIMITED REASON: FLUID CHECK FOR POSSIBLE PARACENTESIS ORDER NUMBER(s): [id number], ACCESSION NUMBER(s): [id number] US ABDOMEN LIMITED, HISTORY: FLUID CHECK FOR POSSIBLE PARACENTESIS COMPARISON(S): None TECHNICAL DATA: Transverse and longitudinal images are obtained of the chest. FINDING: IMPRESSION(S): Mild ascites. ATED BY: MAURICE GREENFIELD MD DICTATED DATE/TIME: 11/28/24 1026 SIGNED BY: MAURICE GREENFIELD MD SIGNED DATE/TIME: 11/28/24 1026 CC: [address] [id number] Ph: [phone] DIAGNOSTIC IMAGING Diagnostic Imaging Report : [id number] Signed PATIENT: JONAH KAPLAN ACCT: [id number] UNIT: [id number] : 1995 LOC: ICU CENTRL ROOM / BED: [address] [place] [address] AGE / SEX: 29 / M ADM STATUS: ADM IN SERVICE 0848 ORDERING PHYSICIAN: BABU,MOHAMMED RESIDENT PROCEDURE(s): CXRP - CHEST PORTABLE REASON: PNA ORDER NUMBER(s): [id number], ACCESSION NUMBER(s): [id number] INDICATION: PNA TECHNIQUE: Single frontal view of the chest was obtained COMPARISON: XY CHEST PORTABLE on DOS: 11/25/24, XY CHEST PORTABLE on DOS: 11/24/24, XY CHEST PORTABLE on DOS: 11/23/24, XY CHEST PORTABLE on DOS: 11/22/24, XY CHEST PORTABLE on DOS: 11/21/24, XY CHEST PORTABLE on DOS: 11/25/24 FINDINGS: Lines and Tubes: Endotracheal tube and nasogastric tube removed. Right central venous catheter unchanged. Lungs: Clear with diminished lung volumes. Pleura: No effusion. No pneumothorax. Cardiomediastinal contours: Unremarkable Bones: Unremarkable IMPRESSION: 1. Bibasilar atelectasis. ATED BY: MAYANK YE MD DICTATED DATE/TIME: 11/26/24 144 SIGNED BY: MAYANK YE MD SIGNED DATE/TIME: 11/26/24 144 CC: Condition at Discharge: Stable Final Diagnosis/Problems List -hepatic encephalopathy due to acute on chronic hepatic failure/septic shock Septic shock History of hypertension - Acute hypoxic respiratory failure. -Acute on chronic decompensated liver failure due to alcoholic cirrhosis of liver -Cirrhosis of liver likely due to alcoholism -Malignant ascites - spontaneous bacterial peritonitis Melena -constipation -Transaminitis likely due to acute on chronic hepatic failure -Splenomegaly -Cholelithiasis -abdominal hernia -alcoholic cirrhosis of the liver, -spontaneous bacterial peritonitis -suspected hepatorenal syndrome likely due to acute decompensated hepatic failure -ANDRÉS likely due to VMN -mild hyponatremia likely delusional -Severe anemia likely due to hepatic failure/hypersplenism/Melena -thrombocytopenia likely due to prism/splenic sequestration -Lactic acidosis likely due to hepatic failure/septic shock -metabolic acidosis -hyper ammonia -hypocalcemia -hypoalbuminemia -Jaundice likely due to acute on chronic hepatic failure Discharge Disposition: Hospice - Home Discharge Instruct/Medications Diet: Cardiac 2g Na,low cholest Medications: Lactulose 30 mL p.o. q.8h Pantoprazole 40 daily Ursodiol 300 mg p.o. b.i.d. Rifaximin Thiamine Folic acid Midodrine 10 mg p.o. t.i.d. Discharge Statement: "Patient was advised to return to the ER or call 911 if any headaches, dizziness, shortness of breath, chest pain, abdominal pain, bleeding, fevers, or worsening of medical condition. Patient was counseled about treatment plan, medications, possible side effects, patientverbalized understanding. All questions were answered to the best of my ability. This discharge took greater then 30 minutes in planning, reviewing documentation, counseling the patient, and discussing with other team members." ASSESSMENT ASSESSMENT Assessment GUSTAVO SANTIZO RESIDENT Nov 28, 2024 10:41
[2024-11-28] MEDS ORDERED: FOLI-119 PO (10:45)
[2024-11-28] MEDS ORDERED: THIA100T10 PO (10:45)
[2024-11-28] MEDS ORDERED: URSO300C2 PO (10:45)
[2024-11-28] MEDS ORDERED: PANT40T PO (10:45)
[2024-11-28] MEDS ORDERED: MID10T PO (10:46)
[2024-11-28] MEDS: methylPREDNISolone SOD SUCC 40 MG/ML VL IV SCH (11:03)
[2024-11-28] MEDS ORDERED: RIFA550T PO (13:53)
--- NOTE | 2024-11-28 15:18 | DVHPN2 ---
Progress Note - Dictate Date Seen: Nov 28, 2024 (Late entry Time of visit is 12 pm) Medical Necessity Reason Pt with a Central, PICC or Fol: Yes The following are medically ne: Central Line, Cartwright Catheter Reason for cartwright catheter: Strict I&O Subjective Awake alert today He is tolerating a diet Patient is altered and somewhat confused Repeat ultrasound did not show enough ascites for paracentesis vital signs Vital Sign Date Time Temp Pulse Resp B/P (MAP) Pulse Ox O2 Delivery O2 Flow Rate FiO2 11/28/24 14:15 98.9 106 14 121/80 (94) 100 98.9 11/28/24 14:00 Room Air* 0 21 Total Intake and Output 11/27/24 11/27/24 11/28/24 15:00 23:00 07:00 Intake Total 200 ml 100 ml Output Total 400 ml 700 ml Balance -200 ml -600 ml objective General: Patient is intubated and off sedation Chest: lung santos clear to auscultation Heart: RRR, no murmur Abdomen: Nmsy-om-hefovtyy-distended, +BS;umbilical hernia Ext no c/c/e laboratory and microbiology Laboratory Tests 11/28/24 04:56 Test 11/28/24 04:56 Range/Units Serum Glucose 121 H 74-106 mg/dL Problems(with codes): (1) Ascites due to alcoholic cirrhosis (2) Anemia, unspecified (3) Thrombocytopenia (4) Cirrhosis (5) Acute abdominal pain (6) Pancytopenia (7) Intractable abdominal pain (8) Elevated liver enzymes Prognosis Plan Discharge planning is in progress Patient is going home possibly with home health care or hospice Overall his prognosis remains guarded Continue current medical management Dietary Evaluation Review Recommendations by RD: Increase Calorie Intake Comments: 1) Increase TF rate to 55 mL/hr goal rate as tolerated. Flush with 50 mL free H2O Q4H Goal rate will provide 1584 kcals, 99g Pro, and 1371 mL free H2O (including flushes) per 24 hrs. Goal rate will meet ~ 97% estimated daily energy needs and ~ 93% estimated daily protein needs 2) Advance to hepatic diet when medically feasible, pending TMD TEACHER aproval 3) Continue to monitor I&O, labs, and skin integrity. Goal TF rate will meet increased protein needs r/t cirrhosis, critical illness, and low Antolin score Expected Outcomes/Goals: 1) EN rate to increase to meet at least 75% of patient's estimated needs 2) diet to advance 3) labs and skin integrity to improve 4) f/u in 2-3 days Interpretation of weight loss: >7.5% in 3 months Fluid Accumulation (Severe): Moderate Fluid Retention Protein Calorie Malnutrition: Severe Is there a minimum of two crit: Yes Plan discussed with: Patient, Other (ANNIE Nurse) KATELYN JOYCE MD Nov 28, 2024 15:18
== END 2024-11-28 14:59 | disposition hospice, home (50) | DRG 720 ==
LOC: ER 21:14 → OVERFLOW 11-12 03:09 → ICU CENTRL 11-13 04:20
PROVIDERS: ADMIT Internal Medicine Pulmonary Disease; ATTEND Emergency Medicine
PROC: 5A1955Z Respiratory Ventilation, Greater than 96 Consecutive Hours (ICD-10-PCS; 2024-11-11)
PROC: 0BH17EZ Insertion of Endotracheal Airway into Trachea, Via Natural or Artificial Opening (ICD-10-PCS; 2024-11-11)
PROC: 02HV33Z Insertion of Infusion Device into Superior Vena Cava, Percutaneous Approach (ICD-10-PCS; 2024-11-12)
PROC: B548ZZA Ultrasonography of Superior Vena Cava, Guidance (ICD-10-PCS; 2024-11-12)
PROC: 0W9G3ZZ Drainage of Peritoneal Cavity, Percutaneous Approach (ICD-10-PCS; 2024-11-12)
PROC: 30233N1 Transfusion of Nonautologous Red Blood Cells into Peripheral Vein, Percutaneous Approach (ICD-10-PCS; 2024-11-13)
PROC: 0W9G3ZZ Drainage of Peritoneal Cavity, Percutaneous Approach (ICD-10-PCS; 2024-11-16)
PROC: 05HD33Z Insertion of Infusion Device into Right Cephalic Vein, Percutaneous Approach (ICD-10-PCS; 2024-11-17)
PROC: 0W9G3ZZ Drainage of Peritoneal Cavity, Percutaneous Approach (ICD-10-PCS; principal; 2024-11-22)
PROC: 0W9G3ZZ Drainage of Peritoneal Cavity, Percutaneous Approach (ICD-10-PCS; 2024-11-26)
DX: A41.9 Sepsis, unspecified organism (principal); J96.01 Acute respiratory failure with hypoxia; N17.0 Acute kidney failure with tubular necrosis; K76.7 Hepatorenal syndrome; K72.00 Acute and subacute hepatic failure without coma; E43 Unspecified severe protein-calorie malnutrition; K65.2 Spontaneous bacterial peritonitis; D69.6 Thrombocytopenia, unspecified; E83.51 Hypocalcemia; K76.82 Hepatic encephalopathy; K70.31 Alcoholic cirrhosis of liver with ascites; R65.21 Severe sepsis with septic shock; G93.41 Metabolic encephalopathy; E87.20 Acidosis, unspecified; E80.6 Other disorders of bilirubin metabolism; E87.1 Hypo-osmolality and hyponatremia; E87.5 Hyperkalemia; D64.9 Anemia, unspecified; D68.4 Acquired coagulation factor deficiency; G20.A1 Parkinson's disease without dyskinesia, without mention of fluctuations; J81.1 Chronic pulmonary edema; F41.9 Anxiety disorder, unspecified; J98.11 Atelectasis; K59.00 Constipation, unspecified; R74.01 Elevation of levels of liver transaminase levels; I10 Essential (primary) hypertension; K80.20 Calculus of gallbladder without cholecystitis without obstruction; F10.10 Alcohol abuse, uncomplicated; Y90.9 Presence of alcohol in blood, level not specified; R16.1 Splenomegaly, not elsewhere classified; K46.9 Unspecified abdominal hernia without obstruction or gangrene; E88.09 Other disorders of plasma-protein metabolism, not elsewhere classified; K92.1 Melena; Z79.2 Long term (current) use of antibiotics; Z79.899 Other long term (current) drug therapy; Z80.9 Family history of malignant neoplasm, unspecified; Z80.0 Family history of malignant neoplasm of digestive organs; Z80.42 Family history of malignant neoplasm of prostate; Z82.49 Family history of ischemic heart disease and other diseases of the circulatory system; Z68.23 Body mass index [BMI] 23.0-23.9, adult
CPT/HCPCS: 36415; 36556; 36600; 49083; 71045; 74018; 76705; 76942; 80048; 80053; 80076; 80202; 80307; 81001; 82140; 82270; 82565; 82805; 82962; 83605; 83735; 84132; 84443; 85014; 85018; 85025; 85610; 85730; 86850; 86900; 86901; 86920; 87040; 87070; 87077; 87081; 87086; 87186; 87205; 92610; 94002; 94003; 94640; 96365; 96368; 96372; G0378; J0692; J1815; J2470; J2543; J3430; J7060; P9047